=== PATIENT | female | born 1940 | race Caucasian/White ===

== ENCOUNTER 2020-02-13 17:47 | Emergency (ER) | payer MEDICARE, SELFPAY ==
[2020-02-13 17:47] VITALS: BP 150/109; PULSE 82; RESP 18; TEMP 36.7; O2SAT 94
[2020-02-13 17:48] VITALS: BP 150/109; PULSE 82; RESP 18; TEMP 36.7; O2SAT 94; BMI 30.9
--- NOTE | 2020-02-13 18:30 | ED.DCSUM_ITS ---
- ER Visit Summary Date of Service: 02/13/20 Chief Complaint: Cough temperature of 100. History of Present Illness: The patient is a 79 F past medical history of melanoma and renal insufficiency. Patient was cured of her melanoma 20 years ago. States she is had a 2-week history of cough nonproductive low-grade fever of 100. Denies any nausea, vomiting or diarrhea. No significant shortness of breath. Attempted to get a COVID 19 test but they ran out in [facility]. Primary care physician sent her to the emergency department. Physical Examination: Female no acute distress. Vital signs stable. Afebrile. Temperature 98. Pulse ox 94% on room air no signs of hypoxia. No distress. HEENT exam normal. Moist his membranes. Neck nontender no lymphadenopathy. Lungs clear to auscultation bilaterally. Dry cough. Heart regular rhythm no murmur. Abdomen soft nontender. Extremities moves all 4. Calves nontender without edema or cords. Neurologically she is awake and alert with no focal motor deficits. Skin unremarkable. Back nontender. Test Results: Chest x-ray AP lateral 2 views read by myself showed a right lower aspect of the upper lobe infiltrate. Consistent with an early pneumonia. No old x-rays available for comparison. I did go over the x-ray with the patient and her . Emergency Department Course and Treatment: We are obtaining a chest x-ray. Started on Levaquin in the emergency department. Treated with Levaquin for total 10 days. Zofran when needed for nausea. Per patient request. Follow-up with your doctor. Clinically the patient looks well. She is not hypoxic. Cu rrently she is not febrile. She is not hypotensive. She seems like a good candidate for outpatient therapy. Treatment Plan: Fluids and rest. Tylenol as needed for fever. Follow-up with your doctor if not improving. Levaquin 1 pill a day for 9 more days starting tomorrow. Disposition: discharge Impression: Acute right upper lobe pneumonia Rule out COVID 19 This note was generated with [employer] dictation software. It may contain incorrect words, spelling, and punctuation that were not noted in review of the chart prior to signing ED Disposition - Plan for ED Patient: Disposition: Home or Assisted Living Instructions: PNEUMONIA (Adult) Prescriptions: levoFLOXacin tablet [Levaquin tablet] 750 mg PO DAILY #9 tab Prescription Printed Ondansetron [Zofran Odt] 4 mg PO Q8H PRN PRN #10 tab PRN Reason: Nausea Prescription Printed Referrals: Nai Alegre MD [Primary Care Provider] - 3-5 Days Additional Instructions: Plenty of fluids and rest. Tylenol for fever. Levaquin the antibiotic 1 pill a day for 9 more days starting tomorrow. Zofran only if needed for nausea. Take your antibiotic with food on your stomach should help decrease the nausea. Follow-up with your doctor to ensure you are improving or return to the emergency department if you are feeling worse.
--- NOTE | 2020-02-13 18:35 | RAD_ITS ---
STUDY: X-RAY CHEST REASON FOR EXAM: Female, 79 years old. COUGH SOB AND FEVER TECHNIQUE: Frontal and lateral views of the chest COMPARISON: None. FINDINGS: There is a small linear opacity in the right midlung zone seen best on the frontal view and partially obscured by mediastinal shadow on the lateral view. There is no pneumothorax, pulmonary edema or pleural effusions. There is a calcified granuloma in the right lung. Osseous structures are intact with scoliosis in the lumbar spine. There is no air under the diaphragms. RAD/Chest PA and Lateral IMPRESSION: 1. Small right lung opacity, too small to characterize, possibly focal atelectasis, versus scarring. However, in the presence of acute respiratory symptoms recommend short term follow-up to evaluate for possible developing pneumonia. Electronically Signed: Yu Chapman, at 18:50 EDT Tel , Service support ,
--- NOTE | 2020-02-13 19:07 | ED.DEP ---
ED Disposition - Plan for ED Patient: Disposition: Home or Assisted Living Instructions: PNEUMONIA (Adult) Prescriptions: levoFLOXacin tablet [Levaquin tablet] 750 mg PO DAILY #9 tab Prescription Printed Ondansetron [Zofran Odt] 4 mg PO Q8H PRN PRN #10 tab PRN Reason: Nausea Prescription Printed Referrals: Nai Alegre MD [Primary Care Provider] - 3-5 Days Additional Instructions: Plenty of fluids and rest. Tylenol for fever. Levaquin the antibiotic 1 pill a day for 9 more days starting tomorrow. Zofran only if needed for nausea. Take your antibiotic with food on your stomach should help decrease the nausea. Follow-up with your doctor to ensure you are improving or return to the emergency department if you are feeling worse.
[2020-02-13] MEDS: levoFLOXacin 750 MG Tablet PO (19:20)
[2020-02-13 19:35] VITALS: BP 157/63
== END 2020-02-13 19:40 | disposition home or self-care (01) ==
PROVIDERS: Emergency Provider Emergency Medicine; PCP Internal Medicine
DX: J18.9 Pneumonia, unspecified organism (principal)
CPT/HCPCS: 71046; 99283

== ENCOUNTER 2020-12-26 08:57 | Outpatient (RCR) | payer MEDICARE, SELFPAY | END 2020-12-26 23:59 | LOC: IMMUN 08:57 | PROVIDERS: PCP Internal Medicine; Visit Provider Family Medicine | DX: Z23 Encounter for immunization (principal) | CPT/HCPCS: 0011A; 0012A; 91301 ==

== ENCOUNTER 2021-05-04 14:35 | Emergency (ER) | payer MEDICARE, SELFPAY ==
[2021-05-04 14:36] VITALS: BP 164/79; PULSE 73; RESP 17; TEMP 36.4; O2SAT 95; BMI 30.9
[2021-05-04 15:11] VITALS: O2SAT 94
--- NOTE | 2021-05-04 15:11 | EKG12_ITS ---
Test Reason : NEW ONSET Blood Pressure : / mmHG Vent. Rate : 069 BPM Atrial Rate : 069 BPM P-R Int : 180 ms QRS Dur : 086 ms QT Int : 382 ms P-R-T Axes : 065 047 057 degrees QTc Int : 409 ms Normal sinus rhythm Normal ECG Confirmed by NELSON HENDRICKS, MARCELLO ([id number]), telegraph editor CRISTOBAL REYES ([id number]) on 05/08/2021 8:14:13 AM Referred By: JOSE Confirmed By:MARCELLO DAMON MD
--- NOTE | 2021-05-04 15:12 | EX.ED.DYSGE1 ---
HPI History of Present Illness Chief Complaint: Neuro S/Sx Detail of Chief Complaint: Also exertional dyspnea. Informant: patient and spouse/S.O. Onset/Context/Timing Onset: Today and Month(s) Context: Sudden Onset Timing: Intermittent Current Severity: Gone Maximum Severity: Mild Narrative Narrative: 80-year-old female past medical history of renal insufficiency and prior melanoma with resection. Chest presents with 2 complaints. The first 1 is today she had 2 different episodes each lasting less than a minute of bilateral arm tingling. Initially occurred at rest while sitting in a car. After a while when she changed positions it resolved. This occurred x2 and then 1 time when she was walking in her house. No weakness. Just a tingling sensation. It was both arms and neck stocking glove distribution. No headache. Second complaint and did not occur today as patient is having exertional dyspnea when she walks to the end of her driveway. Denies any recent cardiac work-up. She denies any chest pain. No fever or chills. No melena. Prior similar symptoms: Yes Recent Illness/Hospitalization: No PFSH PFSH Home Medications aspirin 81 mg PO 02/13/20 [History Last Taken Unknown] atorvastatin 10 mg PO 02/13/20 [History Last Taken Unknown] cholecalciferol (vitamin D3) 2,000 unit PO 02/13/20 [History Last Taken Unknown] diltiazem HCl 120 mg PO BID 02/13/20 [History Last Taken Unknown] labetalol 100 mg PO 02/13/20 [History Last Taken Unknown] levofloxacin 750 mg PO DAILY #9 tab 02/13/20 [Rx Last Taken Unknown] levothyroxine 75 mcg PO DAILY 02/13/20 [History Last Taken Unknown] losartan 100 mg PO 02/13/20 [History Last Taken Unknown] multivitamin 02/13/20 [History Last Taken Unknown] ondansetron 4 mg PO Q8H PRN PRN #10 tab 02/13/20 [Rx Last Taken Unknown] sertraline 25 mg PO 02/13/20 [History Last Taken Unknown] Allergy/AdvReac Type Severity Reaction Status Date / Time ciprofloxacin [From Cipro] Allergy Other Verified 05/04/21 14:39 Penicillins Allergy Rash Verified 05/04/21 14:38 Sulfa (Sulfonamide Allergy Anaphylaxis Verified 05/04/21 14:38 Antibiotics) Opioids - Morphine Analogues AdvReac Vomiting Verified 05/04/21 14:38 Social History Smoking Status: Former smoker ROS ROS ED ROS Narrative Denies any recent illness. She does have exertional dyspnea for last 2 years. Review of Systems ROS Unobtainable: Denies due to encephalopathy Constitutional Constitutional ED: Denies chills or fever(s) Eyes Eyes: Denies change in vision ENT ENT ED: Denies ear pain or sore throat Cardiovascular Cardiovascular: Denies chest pain or palpitations Respiratory/Chest Respiratory/Chest: Reports dyspnea on exertion; Denies cough or sputum Gastrointestinal Gastrointestinal: Denies abdominal pain, constipation, diarrhea, nausea or vomiting Genitourinary Genitourinary ED: Denies dysuria or hematuria Musculoskeletal Musculoskeletal: Denies arthralgias or myalgias Integumentary Denies abscess or rash Psychiatric Psychiatric: Denies depression Endocrine Endocrinology: Denies polyuria Allergic/Immunologic Allergic/Immunologic ED: Denies urticaria EXAM Physical Exam Narrative Exam Narrative: Well-appearing 80-year-old female coming by her . Vital signs stable afebrile. Exam unremarkable. Lungs are clear to auscultation bilaterally. Heart regular rate and rhythm no murmur. Rate about 70. Abdomen soft nontender normal bowel sounds no peritoneal signs. Moving all 4 extremities. Neurovascular intact. She does have a orthopedic boot on her right foot. She has 5 of 5 tombstone polisher strength in both hands. Full range of motion of both arms. Equal symmetrical radial pulses. She has normal strength in both legs. There is back nontender. Neurologically she is awake alert with no focal motor or sensory deficits at this time. NIH of 0. Const Vital Signs: 05/04/21 14:36 05/04/21 15:11 05/04/21 16:17 Temperature 97.5 F L Temperature Source Temporal Pulse Rate 73 65 Respiratory Rate 17 18 Blood Pressure 164/79 H 133/70 H Blood Pressure Mean 107 91 Pulse Ox 95 94 93 Oxygen Delivery Method Room Air Room Air Positive well nourished and well developed; Negative for obese General Appearance ED: well developed Nutritional Appearance: Negative for obese HEENT Reports moist mucous membranes Negative for trauma or tenderness Eyes PERRL and EOMs intact bilaterally Neck no lymphadenopathy, supple and no JVD General: Negative for tenderness Chest Wall inspection of chest normal and palpation of chest normal Resp normal respiratory effort and clear to auscultation bilaterally Effort and Inspection: pain with movement Cardio regular rate, regular rhythm, S1 normal heart sound, S2 normal heart sound and no murmurs GI normal to inspection, nondistended, normoactive bowel sounds, non-tender, non-distended and no masses Auscultation: normoactive bowel sounds Palpation: soft; Negative for tender or guarding Back/Spine no CVA tenderness Cervical Spine: Negative for cervical spine tenderness Thoracic Spine / Upper Back: Negative for thoracic spinal tenderness or paraspinal muscle tenderness Extremity normal to inspection Extremity Narrative: Ortho boot on right foot. General Extremety ED: Negative for edema or tenderness General Extremity: Negative for edema Neuro oriented x3, CN's II-XII intact bilaterally and no sensory deficits noted Sensorium / Orientation: alert; Negative for lethargic or stuporous Sensory Exam: No sensory level loss detected Motor Exam: strength 5/5 throughout; Negative for general weakness Psych mental status grossly normal Skin no rashes or lesions noted MDM MDM MDM Narrative Medical decision making narrative: Older female presents with tingling in both arms its occurred 3 times a day resolved each time. Has a normal neurologic exam at this time. Most likely this is originating from her cervical spine. She has no symptoms that at this time and a normal exam. Her secondary complaint is that she has had exertional dyspnea for some time her and her were hoping for a diagnosis of that. Repeat exam at 4:30 patient is doing well. She will be discharged home with outpatient follow-up with cardiology. Patient and her are comfortable with the plan. Lab Data Attestation: I reviewed the patient's lab results. Lab results narrative: Patient CBC, chemistry and troponin were unremarkable. Portable chest x-ray 1 view read by myself the radiologist showed no acute abnormality. EKG was normal. Chemistries normal. Troponin normal. Labs: Laboratory Results - last 24 hr 05/04/21 05/04/21 05/04/21 15:20 15:20 15:29 WBC 8.2 RBC 4.47 Hgb 12.9 Hct 40.2 MCV 89.9 MCH 28.9 MCHC 32.1 RDW Std Deviation 43.0 RDW Coeff of Bisi 13.1 Plt Count 347 MPV 9.5 Immature Gran % (Auto) 0.200 Neut % (Auto) 54.1 Lymph % (Auto) 33.7 [place] % (Auto) 8.0 Eos % (Auto) 3.4 Baso % (Auto) 0.6 Absolute Neuts (auto) 4.5 Absolute Lymphs (auto) 2.78 Nucleated RBC % 0 Sodium 142 Potassium 4.1 Chloride 105 Carbon Dioxide 29.0 Anion Gap 8 BUN 23 H Creatinine 1.16 H Estim Creat Clear Calc 27.78 Est GFR (MDRD) Af Amer 58 L Est GFR (MDRD) Non-Af 48 L BUN/Creatinine Ratio 19.8 Glucose 96 Calcium 10.3 H Troponin I < 0.015 POC Glucose 101 Radiography Chest X-Ray - ED: 1 View, Read by ED Physician, Read by Radiologist, Heart, Lungs, Mediastinum, Bony Structures, No Acute Disease and Chronic Changes Diagnostic Testing: Radiology Impression Chest X-Ray 05/04/21 15:30 IMPRESSION: Hyperinflation. Minimal residual thickening of the right minor fissure. Electronically Signed: Lakhwinder Madden MD at 15:51 EDT , Service support , Rhythm Strip Rhythm Strip: Sinus Rhythm Rate: 69 Ectopy: None EKG Initial EKG: Attestation: I personally reviewed and interpreted this EKG as follows: Interpretation: Sinus Rhythm and No Acute Injury Pattern Comments: Normal sinus rhythm rate of 69 no acute signs of AL or ischemia. Prior EKG tracings: not available for review Discharge Plan Triage Chief Complaint: Neuro S/Sx ED Provider: Nathan Almanzar Dx/Rx/DC Orders Clinical Impression: Tingling in extremities, Exertional dyspnea Instructions: ED Dyspnea Prescriptions: No Action multivitamin 1 EACH tablet RF: 0 atorvastatin 10 MG tablet 10 mg PO RF: 0 aspirin 81 MG tablet,delayed release (DR/EC) 81 mg PO RF: 0 levothyroxine 75 MCG tablet 75 mcg PO DAILY RF: 0 sertraline 25 MG tablet 25 mg PO RF: 0 diltiazem HCl 120 MG capsule,extended release 24hr 120 mg PO BID RF: 0 labetalol 100 MG tablet 100 mg PO RF: 0 losartan 100 MG tablet 100 mg PO RF: 0 cholecalciferol (vitamin D3) 2,000 UNIT capsule 2,000 unit PO RF: 0 levofloxacin 750 MG tablet 750 mg PO DAILY Qty: 9 RF: 0 ondansetron 4 MG tablet 4 mg PO Q8H PRN PRN (Reason: Nausea) Qty: 10 RF: 0 Primary Care Provider: Nai Alegre Referrals: Nai Alegre MD [Primary Care Provider] - As soon as possible Americo Noguera MD [STAFF PHYSICIAN] - As soon as possible Activity Restrictions/Additional Instructions: The tingling in your arms today is most likely secondary to pinched nerve in your neck. If it continues you should follow up with an outpatient MRI of your neck which is the cervical spine. The exertional shortness of breath we do not have a specific cause. Your test today were normal including chest x-ray, EKG and all the lab work. You need an outpatient echocardiogram which is an ultrasound of your heart. Call and follow-up with cardiology or this could also be ordered through your primary care physician. Disposition Disposition: Home, self care
--- NOTE | 2021-05-04 15:15 | NURSING ---
NO OLD EKGS
--- NOTE | 2021-05-04 15:30 | RAD_ITS ---
STUDY: X-RAY CHEST REASON FOR EXAM: Female, 80 years old. Chest pain TECHNIQUE: Single AP portable view of the chest. COMPARISON: Comparison is made with prior study dated 02/13/2020. FINDINGS: EKG electrodes are seen. Hyperinflation. Minimal residual thickening of the right fissure. There is no demonstrated pleural abnormality. Normal size heart. Normal mediastinum and malcolm. Normal visualized pulmonary arteries. There is atherosclerotic calcification of the aortic arch with tortuosity. Normal visualized thoracic spine. Normal visualized ribs, clavicles, and shoulders. There is no demonstrated abnormality of the visualized soft tissue structures of the upper abdomen. RAD/Chest 1 View (Portable) IMPRESSION: Hyperinflation. Minimal residual thickening of the right minor fissure. Electronically Signed: Lakhwinder Madden MD at 15:51 EDT , Service support ,
[2021-05-04 15:35] LABS: Bedside Glucose 101 mg/dL (70-110)
[2021-05-04 15:39] LABS: Absolute Lymphocyte Count 2.78 X10^3/uL (0.83-4.51); Absolute Neutrophil Count 4.5 X10^3/uL (2.0-7.7); Basophil# 0.05 X10^3/uL; Basophil% 0.6 % (0-1); Eosinophil# 0.28 X10^3/uL; Eosinophils% 3.4 % (0-5); Hematocrit 40.2 % (37-47); Hemoglobin 12.9 g/dL (12.0-15.0); Lymphocyte # 2.78 X10^3/ul (0.83-4.51); Lymphocyte % 33.7 % (19-41); Mean Corp Hgb Conc 32.1 g/dL (32-36); Mean Corpuscular Hgb 28.9 pg (27.0-32.0); Mean Corpuscular Volume 89.9 fL (81-99); Mean Platelet Vol. 9.5 fl (6.2-12.0); Monocyte# 0.66 X10^3/uL; NRBC Flagged by Analyzer 0 % (0-5); Neutrophil # 4.45 X10^3/uL (2.7-7.7); Neutrophil % 54.1 % (47-70); Platelet Count 347 K/mm3 (150-450); RBC Distribution Width CV 13.1 % (11.6-14.6); Red Blood Count 4.47 M/mm3 (4.2-5.4); White Blood Count 8.2 K/mm3 (4.4-11.0)
[2021-05-04 15:55] LABS: Anion Gap 8 (5-15); BUN 23 mg/dL (7-18); BUN/Creat Ratio 19.8 RATIO (10-20); Calcium,Total 10.3 mg/dL (8.5-10.1); Chloride 105 mmol/L (98-107); Creatinine, Serum 1.16 mg/dL (0.55-1.02); EST Glomerular Filtration Rate 48 mL/min (>60); Est Glom Filt Rate - Afr Amer 58 mL/min (>60); Estimated Creatinine Clearance 27.78 ml/min; Glucose 96 mg/dL (74-106); Potassium 4.1 mmol/L (3.5-5.1); Sodium Level 142 mmol/L (136-145)
[2021-05-04 16:17] VITALS: BP 133/70; PULSE 65; RESP 18; O2SAT 93
[2021-05-04 16:47] VITALS: BP 133/70; PULSE 69; RESP 18
== END 2021-05-04 16:48 | disposition home or self-care (01) ==
PROVIDERS: Emergency Provider Emergency Medicine; PCP Internal Medicine
DX: R20.2 Paresthesia of skin (principal); R06.09 Other forms of dyspnea; E66.9 Obesity, unspecified; Z87.891 Personal history of nicotine dependence
CPT/HCPCS: 71045; 80048; 82962; 84484; 85025; 93005; 99284; A4216

== ENCOUNTER 2021-05-29 08:55 | Outpatient (RCR) | payer MEDICARE, SELFPAY ==
--- NOTE | 2021-05-29 12:53 | HP.PTEVAL_ITS ---
Patient's Visit Information BEKAH FERGUSON is a 81 year old F referred to Physical Therapy by NAILA NGUYEN with a diagnosis of PARTIAL TEAR R TIBIALIS ANTERIOR TENDON.. Date of Evaluation: 05/29/21 Physical Therapist: Ammy Virk PT, Cert MDT - Visit Plan Frequency: 2-3x /Week Duration: 4-6 Weeks Plan: VERY GENTLE AND SLOW ROM, STRETCHING AND STRENGTHEING THER EX FOR RIGHT LE. *H/O TWO LUMBAR FUSIONS* START NWB AND PROGRESS WEIGHTBEARING SLOWLY TOLERATED. GAIT TRAINING. - Subjective Work/Leisure: RETIRED. Disability: NO. Present symptoms: PAIN ACROSS THE TOP OF THE FOOT AND ESPECIALLY ALONG THE INSIDE OF THE FOOT. NO LONGER HAVING ANY NUMBNESS OR TINGLING. HAVING SWELLING. Present since: FEBRUARY 2021. Pain Scale: WORST 9/10, LEAST 4/10. Currently: 7/10. Commenced as a result of: NO APPARENT REASON. JUST WOKE UP ONE MORNING AND FOOT WAS SWOLLEN. IT GOT BAD FAST. Symptoms at onset: RIGHT FOOT PAIN AND SWELLING. Worse: WALKING, POINTING TOES DOWN, HURTS WITHOUT ANY REASON AT ALL, ANY KIND OF MVMT. Better: E LEVATING IT, RESTING IT, BOOT. Disturbed sleep: YES. 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 ED VISIT FOR FOOT ABOUT 4 YEARS AGO BUT CAN'T REMEMBER WHICH FOOT - TWISTED ANKLE. Treatment this episode: IN WALKING BOOT SINCE FEBRUARY. PATIENT REPORTS PT IS THE LAST CHANCE SHE HAS TO AVOID SURGERY. STATES TODAY IS A BAD DAY FOR PAIN. WALKING BOOT IS ONLY TREATMENT PATIENT HAS HAD. TAKING TYLONOL FOR PAIN. NO INJECTIONS. Gait: WALKING IN BOOT ONLY. SLEEPS IN BOOT TOO. PATIENT REPORTS THE BOOT CAUSES HER A LOT OF PAIN IN HER ARTIS. GAIT IS DISTANCE LIMITED. 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 Accidents: NO. Imaging: RIGHT FOOT MRI APPROX MARCH 2021 - PARTIAL RUPTURED TENDON PER PATIENT REPORT. 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 2 LUMBAR FUSION WITH LAST ONE BEING NOV 2019. R TKR. OTHER: 2 STORY SPLIT LEVEL HOME WITH LOTS OF STEPS AND HAS PETS. HAS TO DO STEPS A LOT. CONSIDERING MOVING. - Objective THIS PATIENT AMBULATES INDEP'LY INTO PT WITHOUT ANY ASSISTIVE DEVICES WEARING A BOOT ON HER RIGHT FOOT. SHE IS ABLE TO INDEP'LY TRANSFER SIT TO STAND WITHOUT UE ASSIST. SHE IS ABLE TO INDEP'LY DON AND DOFF BOOT. 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 SHE HAS MILD SWELLING ALONG HER RIGHT MEDIAL ARCH. SHE IS UNABLE TO ACTIVELY INVERT HER FOOT BUT HAS ABOUT 5 DEG OF EVERSION. RIGHT ANKLE ACTIVE DORSIFLEX TO NEUTRAL AND PLANTAR FLEXION TO 40 DEG. SHE IS ABLE TO ACTIVELY MOVE ALL TOES. AROM OF TOES DOES NOT HURT BUT ALL ANKLE MVMTS PROVOKE C/O PAIN. TREATMENT: GAIT TRAINING TO DECREASE STRIDE LENGTH, DECREASE CADANCE AND PICKING UP OF RIGHT FOOT TO DECREASE RUBBING OF BOOT WHICH WAS ONE OF PATIENTS CHEIF COMPLAINTS TODAY. SHE REPORTED DECREASED LEG PAIN FROM THE BOOT WITH GAIT CHANGES. HEP INSTRUCTION: GENTLE AROM OF TOE AND DORSIFLEX/PLANTAR FLEX X 20-30 REPS ABOUT 5 TIMES A DAY WHEN SHE LAYS DOWN TO ELEVATE RIGHT LE. PATIENT DEMONSTRATED AND COMMUNICATED A GOOD UNDERSTANDING OF ALL INSTRUCTIONS AFTER GIVEN. SHE APPEARS VERY APPREHENSIVE ABOUT PT BEING TOO AGGRESSIVE AND THIS PT TRIED TO RE-ASSURE HER THAT WE WILL START SLOWLY. SHE STATES SHE REALLY WANTS TO AVOID SURGERY BUT IS CONCERNED SHE WILL NOT BE ABLE TO. - Goals Goal 1:: INDEP AND SAFE GAIT ON LEVEL SURFACES AND UP AND DOWN STEPS WITHOUT BOOT AND WITH LEAST ASSISTIVE DEVICE. Goal Time Frame: 4-6 Weeks Goal 2:: INCREASE FUNCTIONAL AROM OF RIGHT ANKLE TO IMPROVE ADL'S. Goal Time Frame: 4-6 Weeks Goal 3:: INCREASE FUNCTIONAL STRENGTH OF RIGHT LE TO 4/5 TO EASE ADLS AND ALLOW PATIENT TO BE ABLE TO DRIVE. Goal Time Frame: 4-6 Weeks Goal 4:: DECREASE C/O RIGHT FOOT/ANKLE PAIN Goal Time Frame: 4-6 Weeks Goal 5:: PATIENT WILL BE INDEP WITH A HEP FOR CONTINUED IMPROVEMENT ONCE FORMAL PHYSICAL THERAPY CONCLUDES. Goal Time Frame: 4-6 Weeks - Anticipated Interventions Patient/Client Instruction: Educate patient on: Condition, Plan of Care, Risk Factors For the Purpose of:: To improve self management Therapeutic Exercise to Include: Strength training, Flexibilty training, Gait and locomotor training, Neuromotor development, Active ROM For the Purpose of:: To decrease pain, To increase ROM, To improve muscle performance and motor function, To increase tolerance to activity/condition/position, To improve ability of physical actions for home/community/work/leisure, To improve gait and locomotor functions Cryotherapy (ice pack, ice massage): Yes Thermo therapy (hot pack): Yes For the Purpose of:: To decrease pain, To decrease swelling/inflammation, To improve nutrient delivery to tissue Thank you for the opportunity to evaluate your patient. For Medicare and Medicare HMO plans, please review the plan of care and approve it. It will need to be FAXED BACK to us at [phone] for Medicare purposes. For Medicare only, by signing this I certify the plan of care. Please let me know if there are questions or concerns regarding this plan of care. Physician Signature: Date:
--- NOTE | 2021-06-18 08:57 | HP.PT.NRP ---
BEKAH FERGUSON was seen in my office for initial evaluation on 05/29/21. The following Plan of Care was established for this patient: Initial Frequency: 2-3x /Week Initial Duration: 4-6 Weeks Patient/Client Instruction: Educate patient on: Condition, Plan of Care, Risk Factors For the Purpose of:: To improve self management Therapeutic Exercise to Include: Strength training, Flexibilty training, Gait and locomotor training, Neuromotor development, Active ROM For the Purpose of:: To decrease pain, To increase ROM, To improve muscle performance and motor function, To increase tolerance to activity/condition/position, To improve ability of physical actions for home/community/work/leisure, To improve gait and locomotor functions Cryotherapy (ice pack, ice massage): Yes Thermo therapy (hot pack): Yes For the Purpose of:: To decrease pain, To decrease swelling/inflammation, To improve nutrient delivery to tissue This patient was last seen in our office 05/29/21. Pertinent comments regarding their Physical therapy will appear below: This patient has not returned to Physical Therapy and is appropriate to return to MD for further follow-up as needed. At this point I will be discontinuing this patient from physical therapy. I would be happy to see this patient again in the future if found appropriate by the physician. Thank you! Ammy Virk, PT, Cert MDT
== END 2021-05-29 19:00 | disposition home or self-care (01) ==
LOC: PT 08:55
PROVIDERS: PCP Internal Medicine
DX: S86.211D Strain of muscle(s) and tendon(s) of anterior muscle group at lower leg level, right leg, subsequent encounter (principal); X58.XXXD Exposure to other specified factors, subsequent encounter
CPT/HCPCS: 97162; 97530

== ENCOUNTER → 2021-07-09 06:59 | Outpatient (CLI) | payer MEDICARE, SELFPAY ==
[2021-06-25 15:47] VITALS: BMI 29.7
--- NOTE | 2021-07-09 07:01 | ECHOD_ITS ---
Reason For Study: MURMUR Procedure This was a 2D Doppler, Color Flow transthoracic echocardiogram. Contrast injection was performed. Exam performed in department. Left Ventricle Normal LV size. Left ventricular systolic function is normal. The estimated ejection fraction is 65 %. There is evidence of diastolic dysfunction. No regional wall motion abnormalities noted. Right Ventricle Normal RV size. Normal systolic function. Atria Normal left atrium. Normal right atrium. Prominent eustachian valve. No doppler evidence for ASD. Mitral Valve There is no mitral annular calcification. Normal mitral valve. Trivial mitral valve insufficiency. Tricuspid Valve Normal tricuspid valve. Trivial tricuspid valve insufficiency. Right ventricular systolic pressure estimated to be 36 mmHg. Aortic Valve Trisinus/trileaflet aortic valve. Mild focal aortic valve calcification. Trivial aortic valve insufficiency. Pulmonic Valve The pulmonic valve is not well visualized. Great Vessels Normal sized aortic root. Pericardium/Pleural No pericardial effusion. MMode/2D Measurements & Calculations LVIDd: 3.8 cm IVSd: 1.2 cm Ao root diam: 3.0 cm LVIDs: 2.5 cm LVPWd: 0.98 cm RVDd: 2.6 cm FS: 33.1 % LAV(MOD-bp): 49.6 ml LA A4 area: 16.6 cm2 LA dimension(2D): 3.2 cm LAV(MOD-bp) Indexed: 29.9 ml/m2 LAV(MOD-sp2): 50.5 ml LAV(MOD-sp4): 44.7 ml RA A4 area: 11.0 cm2 Time Measurements MV dec time: 0.23 sec Doppler Measurements & Calculations MV E max joni: 77.8 cm/sec Lat Peak E' Joni: 8.5 cm/sec Med Peak E' Joni: 5.2 cm/sec MV A max joni: 86.1 cm/sec E/E' lat: 9.1 E/E' med: 14.9 MV E/A: 0.90 Ao V2 max: 154.4 cm/sec AI max joni: 392.4 cm/sec LV V1 max: 124.3 cm/sec Ao max P.5 mmHg AI max P.6 mmHg LV V1 max P.2 mmHg AI dec slope: 223.2 cm/sec2 AI P1/2t: 515.0 msec PA V2 max: 95.1 cm/sec TR max joni: 288.2 cm/sec TR max P.2 mmHg ECHO/Echo Complete Interpretation Summary Left ventricular systolic function is normal. The estimated ejection fraction is 65 %. Prominent eustachian valve. Trivial mitral valve insufficiency. Trivial tricuspid valve insufficiency. Mild focal aortic valve calcification. Trivial aortic valve insufficiency. Right ventricular systolic pressure estimated to be 36 mmHg. There is evidence of diastolic dysfunction. Ordering Physician: Americo Noguera Referring Physician: TONY CAMPA Performed By: Chrissy Villaseñor, RDCS, RVT
--- NOTE | 2021-07-09 10:02 | STRESSREP_ITS ---
Stress Test Report Date: 07-09-2021 Procedure: Pharmacologic stress nuclear imaging study Indications: Shortness of breath/dyspnea on exertion Consent: Per the patient Procedure: The patient underwent pharmacologic (Regadenoson 0.4mg ) evaluation with a peak heart rate of 96 beats per minute (69%predicted maximal heart rate) and a peak blood pressure of 142/70 mmHg. The baseline ECG demonstrated sinus rhythm. The peak pharmacologic ECG demonstrated no obvious ECG changes. There were no cardiac dysrhythmias pretest, during pharmacologic infusion, or recovery. There was no complaint of chest discomfort during pharmacologic infusion or recovery. The examination was discontinued secondary to completion of protocol. Impression: 1. Pharmacologic (Regadenoson) evaluation 2. Peak pharmacologic ECG with no obvious ECG changes. 3. There were no cardiac dysrhythmias pretest, during pharmacologic infusion, or recovery. 4. Nuclear images pending Myocardial perfusion imaging study: Technique: The patient was injected with 12.0 millicuries of technetium 99m Cardiolite and subsequently rest SPECT Cardiolite nuclear imaging was obtained in the horizontal long, vertical long, and short axis views. The patient underwent pharmacologic (Regadenoson) evaluation with a peak heart rate of 96 beats per minute (69% percent predicted maximal heart rate) and a peak blood pressure of 142/70 mmHg. The patient was injected with 36.0 millicuries of technetium 99m Cardiolite and subsequently stress SPECT Cardiolite nuclear imaging was obtained in the horizontal long, vertical long, and short axis views. A gated Cardiolite study at peak stress was obtained. Interpretation: Rest and stress SPECT Cardiolite nuclear imaging status post realignment, normalization, and attenuation correction demonstrate relative uniform tracer uptake and myocardial perfusion appearing within normal limits. There is end systolic thickening and brightening. The gated Cardiolite study demonstrates myocardial thickening and inward wall motion. The reported LVEF is 86%. Impression: 1. Rest and stress SPECT Cardiolite nuclear imaging demonstrate relative uni form tracer uptake and myocardial perfusion appearing within normal limits. 2. The gated Cardiolite study reports an LVEF of 86%. This note was generated with [employer] software. It may contain incorrect words, spelling, and punctuation that were not noted in checking the note before signing.
== END ==
PROVIDERS: PCP Internal Medicine; Referring Provider Internal Medicine Cardiovascular Disease; Visit Provider Internal Medicine Cardiovascular Disease
DX: R06.00 Dyspnea, unspecified (principal); E78.2 Mixed hyperlipidemia; R01.1 Cardiac murmur, unspecified; I10 Essential (primary) hypertension
CPT/HCPCS: 78452; 93017; 93306; A9500; A4216; J2785

== ENCOUNTER 2022-10-09 11:47 | Emergency (ER) | payer MEDICARE, SELFPAY ==
[2022-10-09 11:50] VITALS: BP 104/87; PULSE 79; RESP 18; TEMP 36.4; O2SAT 95; BMI 28.2
--- NOTE | 2022-10-09 12:08 | EDS_ITS ---
HPI History of Present Illness Chief Complaint: Cough Informant: patient Onset/Context/Timing Onset: Days (5-6) Context: gradual and onset Timing: Intermittent Quality: Positive for Wheezing Current Severity: Gone Maximum Severity: Moderate Worsened by: Coughing Relieved by: Albuterol Associated Symptoms cough and fever Chest Pain: Positive for None Narrative Narrative: Patient has been sick for 5 or 6 days now with URI symptoms, going down into my chest, but just my upper chest right now. She states that if it gets worse it will turn into pneumonia like it does every winter. She talked to her downstream biomanufacturing technician about this illness, at the time she was not having any fevers but she was having intermittent wheezing that was being treated well with her home albuterol treatments which is still the case, and they did not advise an antibiotic at that time. 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 She states yesterday she started getting a low-grade fever 100.9, and she has been up coughing all night, but not more dyspneic. [facility] Medical History Basal cell carcinoma (BCC) Cardiac murmur CKD (chronic kidney disease) stage 3, GFR 30-59 ml/min Essential hypertension Hypothyroidism IBS (irritable bowel syndrome) Malignant melanoma Mixed hyperlipidemia Home Medications cholecalciferol (vitamin D3) 50 mcg (2,000 unit) capsule 2,000 unit PO 02/13/20 [History Last Taken Unknown] diltiazem HCl 120 mg capsule,extended release 24 hr 120 mg PO BID 02/13/20 [History Last Taken Unknown] levothyroxine 75 mcg tablet 75 mcg PO DAILY 02/13/20 [History Last Taken Unknown] aspirin 81 mg tablet,delayed release 81 mg PO DAILY 06/24/21 [History Last Taken Unknown] atorvastatin 10 mg tablet 10 mg PO DAILY 06/24/21 [History Last Taken Unknown] labetalol 100 mg tablet 100 mg PO DAILY 06/24/21 [History Last Taken Unknown] losartan 100 mg tablet 100 mg PO DAILY 06/24/21 [History Last Taken Unknown] sertraline 25 mg tablet 25 mg PO DAILY 06/24/21 [History Last Taken Unknown] doxycycline monohydrate 100 mg capsule 100 mg PO BID #14 CAPSULES 11/12/22 [Rx Last Taken Unknown] Allergy/AdvReac Type Severity Reaction Status Date / Time ciprofloxacin [From Cipro] Allergy Other Verified 10/09/22 11:50 Penicillins Allergy Rash Verified 10/09/22 11:50 Sulfa (Sulfonamide Allergy Anaphylaxis Verified 10/09/22 11:50 Antibiotics) Opioids - Morphine Analogues AdvReac Vomiting Verified 10/09/22 11:50 Family History Mother CAD (coronary artery disease) Myocardial infarction CVA (cerebral vascular accident) Surgical History History of arthroscopy of right knee History of lumbar spinal fusion History of lumbosacral spine surgery Social History Smoking Status: Former smoker alcohol intake: current details: occasional substance use type: does not use caffeine: Yes Type: tea Number of servings: 1 ROS ROS ED Constitutional Constitutional ED: Reports fever(s); Denies chills ENT ENT ED: Reports ear pain left (intermittent, mild), rhinorrhea and sore throat Cardiovascular Cardiovascular: Denies chest pain or palpitations Respiratory/Chest Respiratory/Chest: Reports cough and dyspnea; Denies sputum Gastrointestinal Gastrointestinal: Denies abdominal pain, diarrhea, nausea or vomiting Genitourinary Genitourinary ED: Denies dysuria or hematuria Musculoskeletal Musculoskeletal: Denies myalgias or neck pain Integumentary Denies abscess or rash Neurologic Neurologic: Denies headache(s), paresthesias or weakness Psychiatric Psychiatric: Denies depression or suicidal thoughts Endocrine Endocrinology: Denies polydipsia or polyuria EXAM Physical Exam Const Vital Signs: 10/09/22 11:50 10/09/22 12:09 10/09/22 12:20 Temperature 97.6 F L 97.8 F Temperature Source Temporal Temporal Pulse Rate 79 88 Respiratory Rate 18 16 Respiratory Effort Short of Breath Respiratory Depth Normal Respiratory Pattern Normal Blood Pressure 104/87 H 106/78 Blood Pressure Mean 92 87 Pulse Ox 95 98 Oxygen Delivery Method Room Air Room Air Room Air Positive well nourished and well developed General Appearance ED: well developed and NAD HEENT Reports TM's clear and moist mucous membranes normocephalic and atraumatic Tympanic Membrane ED: Yes TM's clear Throat: Negative for posterior oropharynx abnormal Eyes PERRL and EOMs intact bilaterally Neck no lymphadenopathy, supple and no meningeal signs Resp normal respiratory effort and clear to auscultation bilaterally Cardio no murmurs Rate: regular rate Rhythm: regular rhythm Neuro oriented x3, CN's II-XII intact bilaterally and no sensory deficits noted Sensorium / Orientation: alert Motor Exam: strength 5/5 throughout Skin Lesions: no lesions Rashes: no rashes MDM MDM MDM Narrative Medical decision making narrative: 2 view chest x-ray on my interpretation is negative for any acute pneumonia. Patient states she has now developed fevers although she does not have 1 here, with a history of immunoglobulin deficiency and bronchiectasis I do not think it is completely unreasonable to start her on antibiotics. Prescribed her doxycycline, but she states during the history I cannot continue to cough like this. I have advised her that since her x-ray is normal, that it is unlikely that the doxycycline will cure her cough. She understands this, I recommend she follow-up with her downstream biomanufacturing technician, who is in [place], Dr. Goncalves, after the weekend, I we both agree that she does not necessarily need prednisone right now, she is comfortable with this overall plan. Discharge Plan Triage Chief Complaint: Cough ED Provider: Jc Schwab Dx/Rx/DC Orders Clinical Impression: Acute bronchitis, Bronchiectasis Instructions: Acute Bronchitis Prescriptions: New doxycycline monohydrate 100 mg capsule 100 mg PO BID Qty: 14 0RF No Action levothyroxine 75 MCG tablet 75 mcg PO DAILY diltiazem HCl 120 MG capsule,extended release 24hr 120 mg PO BID cholecalciferol (vitamin D3) 2,000 UNIT capsule 2,000 unit PO sertraline 25 mg tablet 25 mg PO DAILY atorvastatin 10 mg tablet 10 mg PO DAILY labetalol 100 mg tablet 100 mg PO DAILY aspirin 81 mg tablet,delayed release (DR/EC) 81 mg PO DAILY losartan 100 mg tablet 100 mg PO DAILY Primary Care Provider: Herminio Wise Referrals: Greaser Operator, your [Other] - 3-5 Days Herminio iWse MD [Primary Care Provider] - Disposition Disposition: Home, Self Care
[2022-10-09 12:09] VITALS: BP 106/78; PULSE 88; RESP 16; TEMP 36.6; O2SAT 98
--- NOTE | 2022-10-09 12:23 | RAD_ITS ---
EXAM: XR CHEST, 2 VIEWS CLINICAL INDICATION: cough, sob, bronchiectasis TECHNIQUE: Frontal and lateral views of the chest. This report was created using [employer] report generation technology. COMPARISON: XR Chest dated 05/04/2021 FINDINGS: LUNGS AND PLEURAL SPACES: Changes of old granulomatous disease again noted involving superior segment of the right lower lobe and right hilar. No pneumothorax. No effusion. HEART: Normal heart size. MEDIASTINUM: No mediastinal or hilar mass. BONES/JOINTS: No acute abnormality. SOFT TISSUES: Normal. RAD/Chest PA and Lateral IMPRESSION: No acute cardiopulmonary abnormality. No interval change. Electronically Signed: Adrian Marroquin MD at 12:39 EST ,
[2022-10-09 12:47] VITALS: RESP 18
== END 2022-10-09 12:47 | disposition home or self-care (01) ==
PROVIDERS: Emergency Provider Emergency Medicine; PCP Family Medicine; Visit Provider Emergency Medicine
DX: J47.0 Bronchiectasis with acute lower respiratory infection (principal); N18.30 Chronic kidney disease, stage 3 unspecified; Z87.891 Personal history of nicotine dependence
CPT/HCPCS: 71046; 99282

== ENCOUNTER 2023-06-11 14:45 | Emergency (ER) | payer MEDICARE, SELFPAY ==
[2023-06-11 14:47] VITALS: BP 112/97; PULSE 65; RESP 16; TEMP 36.8; O2SAT 94; BMI 28.7
--- NOTE | 2023-06-11 15:07 | VDUE_ITS ---
Reason For Study: Lt Arm Pain Right Proximal Left Proximal Right subclavian vein is spontaneous, widely Left jugular vein is spontaneous, widely patent, phasic, with no intraluminal patent, phasic, with no intraluminal echogenicity noted. echogenicity noted. Left subclavian vein is spontaneous, widely patent, phasic, with no intraluminal echogenicity noted. Left Arm Left axillary vein is spontaneous, patent, phasic, competent, compressible and demonstrates augmentation. Left brachial vein is compressible. Left cephalic vein is compressible. Left basilic vein is compressible. Left Lower Arm Left radial vein is compressible. Left ulnar vein is compressible. VL/Venous Duplex US, Unilateral Interpretation Summary No evidence for acute deep venous thrombosis[left] upper extremity with patent and compressible cephalic and basilic veins. Normal flow patterns right subclavian vein Ordering Physician: Isaiah Fernandez Performed By: Heladio Zelaya RVT ???
--- NOTE | 2023-06-11 15:08 | EX.ED.UPPERE ---
HPI History of Present Illness Chief Complaint: Wound Informant: patient Narrative Narrative: Patient presents with a sore red area on her left forearm. Patient had a Gammagard infusion done yesterday. She states the connector did come off and some of the liquid leaked on her skin but they did not have to replace the IV. They did comment that the IV was in a very small vein. But they had no problems infusing it. She had no pain or symptoms at the time. Many hours later and then now today she has developed some redness and soreness along the left volar forearm. It stops prior to getting up to the elbow. She states she otherwise feels great. She has no chest pain cough shortness of breath nausea vomiting or fevers. She has never had DVT or PE. She is not on any blood thinners. She has had approximately 16 of these infusions and has not had reactions before. She was seen at urgent care today. They started her on doxycycline but stated that she may need further evaluation. [facility] Medical History Basal cell carcinoma (BCC) Cardiac murmur CKD (chronic kidney disease) stage 3, GFR 30-59 ml/min Essential hypertension Hypothyroidism IBS (irritable bowel syndrome) Malignant melanoma Mixed hyperlipidemia Home Medications cholecalciferol (vitamin D3) 50 mcg (2,000 unit) capsule 2,000 unit PO 02/13/20 [History Last Taken Unknown] diltiazem HCl 120 mg capsule,extended release 24 hr 120 mg PO BID 02/13/20 [History Last Taken Unknown] levothyroxine 75 mcg tablet 75 mcg PO DAILY 02/13/20 [History Last Taken Unknown] aspirin 81 mg tablet,delayed release 81 mg PO DAILY 06/24/21 [History Last Taken Unknown] atorvastatin 10 mg tablet 10 mg PO DAILY 06/24/21 [History Last Taken Unknown] labetalol 100 mg tablet 100 mg PO DAILY 06/24/21 [History Last Taken Unknown] losartan 100 mg tablet 100 mg PO DAILY 06/24/21 [History Last Taken Unknown] sertraline 25 mg tablet 25 mg PO DAILY 06/24/21 [History Last Taken Unknown] doxycycline monohydrate 100 mg capsule 100 mg PO BID #14 CAPSULES 10/09/22 [Rx Last Taken Unknown] Allergy/AdvReac Type Severity Reaction Status Date / Time ciprofloxacin [From Cipro] Allergy Other Verified 06/11/23 14:49 Penicillins Allergy Rash Verified 06/11/23 14:49 Sulfa (Sulfonamide Allergy Anaphylaxis Verified 06/11/23 14:49 Antibiotics) Opioids - Morphine Analogues AdvReac Vomiting Verified 06/11/23 14:49 Family History Mother CAD (coronary artery disease) Myocardial infarction CVA (cerebral vascular accident) Surgical History History of arthroscopy of right knee History of lumbar spinal fusion History of lumbosacral spine surgery Social History Smoking Status: Former smoker alcohol intake: current details: occasional substance use type: does not use caffeine: Yes Type: tea Number of servings: 1 ROS ROS ED Constitutional Constitutional ED: Denies chills, fever(s), subjective or sweats ENT ENT ED: Denies rhinorrhea Cardiovascular Cardiovascular: Denies chest pain, palpitations or racing heartbeat Respiratory/Chest Respiratory/Chest: Denies cough or dyspnea Gastrointestinal Gastrointestinal: Denies nausea or vomiting Musculoskeletal Musculoskeletal: Denies myalgias Integumentary Reports rash Neurologic Neurologic: Denies headache(s), paresthesias or weakness Hematologic/Lymphatic Hematologic/Lymphatic: Denies easy bleeding, easy bruising or lymphadenopathy Allergic/Immunologic Allergic/Immunologic ED: Denies urticaria EXAM Physical Exam Narrative Exam Narrative: Patient awake alert no acute distress laying comfortably in bed. HEENT shows normal mucous membranes no trauma Neck is supple with normal range of motion no JVD. Heart is regular rate about 60 no murmur gallop or rub. Peripheral pulses including the involved extremity are normal. Lungs are clear bilaterally and breathing is easy and unlabored. Saturations are normal at 94% on room air showing no notable hypoxia. Abdomen is soft and nontender. Extremities are normal other than the left forearm. I can see the site where an IV was placed in the distal left volar forearm. Along the course of the vein for about 6 inches there is some slight darkening and redness of the skin. There is mild tenderness. But I do not feel any cord. No crepitance. It does not actually feel warm. This looks more like a phlebitis and does not look infectious. No proximal lymph nodes. There is no swelling at all of the hand or arm itself. Const Vital Signs: 06/11/23 14:47 Temperature 98.2 F Temperature Source Temporal Pulse Rate 65 Respiratory Rate 16 Blood Pressure 112/97 H Blood Pressure Mean 102 Pulse Ox 94 Oxygen Delivery Method Room Air MDM MDM MDM Narrative Medical decision making narrative: I initially ordered an ultrasound. After some time I found out that we do not have them available today. Therefore we initiated work-up with the labs. CBC shows no marked new abnormalities. Electrolytes showed mild elevation in creatinine. D-dimer was elevated. With her having recent IV, pain and tenderness along the vein, elevated D-dimer we will give her a dose of Lovenox to cover her for the next 24 hours. I did discuss the case with staff here and nursing supervisor dock states we can place an outpatient order for ultrasound and it can be done between 9 and 1 tomorrow. If that is positive she will need to come back here to get further prescription and treatment. My suspicion is that this is most likely a superficial phlebitis though. I explained the situation plan and needed potential therapy in the future to the patient. On discussion of risk factors there is no acute risk factor to give a dose of Lovenox now. Discharge Plan Triage Chief Complaint: Wound ED Provider: Isaiah Fernandez Dx/Rx/DC Orders Clinical Impression: Superficial phlebitis of arm, D-dimer, elevated Instructions: ED Thrombophlebitis, Superficial Prescriptions: No Action levothyroxine 75 MCG tablet 75 mcg PO DAILY diltiazem HCl 120 MG capsule,extended release 24hr 120 mg PO BID cholecalciferol (vitamin D3) 2,000 UNIT capsule 2,000 unit PO doxycycline monohydrate 100 mg capsule 100 mg PO BID Qty: 14 0RF sertraline 25 mg tablet 25 mg PO DAILY atorvastatin 10 mg tablet 10 mg PO DAILY labetalol 100 mg tablet 100 mg PO DAILY aspirin 81 mg tablet,delayed release (DR/EC) 81 mg PO DAILY losartan 100 mg tablet 100 mg PO DAILY Other Ambulatory Orders: Venous Duplex US, Unilateral (Stat) Facility: [facility] - Location: [facility] Ordered By: Dr. Isaiah Fernandez Primary Care Provider: Herminio Wise Referrals: Herminio Wise MD [Primary Care Provider] - 3-5 Days Disposition Disposition: Home, Self Care Discharge Date/Time: 06/11/23 18:58
--- NOTE | 2023-06-11 16:28 | ED.RN ---
family upset d/t delay in imaging.
[2023-06-11 17:12] LABS: Absolute Lymphocyte Count 2.46 X10^3/uL (0.83-4.51); Absolute Neutrophil Count 1.9 X10^3/uL (2.0-7.7); Basophil# 0.05 X10^3/uL; Eosinophil# 0.19 X10^3/uL; Eosinophils% 3.7 % (0-5); Hematocrit 37.3 % (37-47); Hemoglobin 12.4 g/dL (12.0-15.0); Lymphocyte # 2.46 X10^3/ul (0.83-4.51); Lymphocyte % 48.5 % (19-41); Mean Corp Hgb Conc 33.2 g/dL (32-36); Mean Corpuscular Hgb 29.9 pg (27.0-32.0); Mean Corpuscular Volume 89.9 fL (81-99); Mean Platelet Vol. 10.6 fl (6.2-12.0); Monocyte# 0.49 X10^3/uL; Monocyte% 9.7 % (0-10); NRBC Flagged by Analyzer 0 % (0-5); Neutrophil # 1.87 X10^3/uL (2.7-7.7); Neutrophil % 36.9 % (47-70); Platelet Count 174 K/mm3 (150-450); RBC Distribution Width CV 13.1 % (11.6-14.6); RBC Distribution Width SD 43.2 fl (35.1-43.9); Red Blood Count 4.15 M/mm3 (4.2-5.4); White Blood Count 5.1 K/mm3 (4.4-11.0)
[2023-06-11 17:24] LABS: Anion Gap 4 (5-15); BUN 24 mg/dL (7-18); BUN/Creat Ratio 18.5 RATIO (10-20); Calcium,Total 9.6 mg/dL (8.5-10.1); Chloride 109 mmol/L (98-107); EST Glomerular Filtration Rate 42 mL/min (>60); Est Glom Filt Rate - Afr Amer 50 mL/min (>60); Estimated Creatinine Clearance 23.55 ml/min; Glucose 90 mg/dL (74-106); Potassium 3.8 mmol/L (3.5-5.1); Sodium Level 140 mmol/L (136-145)
[2023-06-11 18:24] LABS: D-Dimer Quantitative (DVT/PE) 1.11 FEU/ug/m (0.27-0.49)
[2023-06-11] MEDS: Enoxaparin 100 MG/ML Syringe 90 MG SC (18:54)
== END 2023-06-11 18:58 | disposition home or self-care (01) ==
PROVIDERS: Emergency Provider Emergency Medicine; PCP Family Medicine; Visit Provider Emergency Medicine
DX: I80.8 Phlebitis and thrombophlebitis of other sites (principal); N18.30 Chronic kidney disease, stage 3 unspecified; R79.89 Other specified abnormal findings of blood chemistry; Z87.891 Personal history of nicotine dependence
CPT/HCPCS: 36415; 80048; 85025; 85379; 93971; 99282

== ENCOUNTER → 2023-06-12 | Outpatient (CLI) | payer MEDICARE, SELFPAY | END | disposition home or self-care (01) | LOC: VL 11:01 | PROVIDERS: PCP Family Medicine; Referring Provider Emergency Medicine; Visit Provider Emergency Medicine | DX: M79.602 Pain in left arm (principal) ==

== ENCOUNTER → 2023-08-22 14:01 | Outpatient (CLI) | payer MEDICARE, SELFPAY ==
--- NOTE | 2023-08-22 14:08 | EX.OP.PR.TP ---
General Information2 General Information Admitting Diagnosis: Bronchiectasis Secondary Diagnosis: Persistent asthma without complications Personal Learning Style/Barriers Personal Learning Style:: Audio/Visual Barriers to Learning: Vision impaired Stage of change r/t lifestyle modifications: Prepared Educational Classes [place]: Living with Chronic Lung Disease: Initial Assessment, Breathing Retraining: Initial Assessment, Exercise: Initial Assessment and Energy Conservation: Initial Assessment Education/Goals Individual Counseling: Initial Assessment: Overweight/Obesity [place] Patient Goals: Increase muscle strength: Initial Assessment and Experience less dyspnea: Initial Assessment Exercise - Initial Assessment Visit Date of Eval: 08/22/23 Session Number:: 0 (Pre-program evaluation) Problem/Goals Problems: Deconditioning Goals:: [place]: 2-3/wk for 18 weeks [36 sessions] Physician Prescribed Exercise Modalities: Treadmill, Airdyne and NuStep Intensity: 60-80% of age predicted maximum heart rate reserve METs - Progression 0.5-1.0 weekly:: 3.0 Target HR:: 103 (THRR 83-103) Resting Blood Pressure: 136/88 Minimum SpO2 with exercise: 98 (Baseline at rest.) EKG Type: Sinus rhythm Plan Plan and Plan to Review:: Benefits of exercise, Core components of exercise, How to measure dyspnea level, How to monitor dyspnea level, Exercise intensity, Exercise safety guideline, Home exercise guidelines and Epifanio: 3-4/11-13 Home Exercise Mode: Walking Exercise - 30-Day Assessment Visit Date of Eval: 08/22/23 Session Number:: 0 (Pre-program evaluation) Physician Prescribed Exercise Target HR:: 103 (THRR 83-103) Resting Blood Pressure: 136/88 Minimum SpO2 with exercise: 98 (Baseline at rest.) EKG Type: Sinus rhythm Exercise - 60-Day Assessment Visit Date of Eval: 08/22/23 Session Number:: 0 (Pre-program evaluation) Physician Prescribed Exercise Target HR:: 103 (THRR 83-103) Resting Blood Pressure: 136/88 Minimum SpO2 with exercise: 98 (Baseline at rest.) EKG Type: Sinus rhythm Exercise - 90-Day Assessment Visit Date of Eval: 08/22/23 Session Number:: 0 (Pre-program evaluation) Physician Prescribed Exercise Target HR:: 103 (THRR 83-103) Resting Blood Pressure: 136/88 Minimum SpO2 with exercise: 98 (Baseline at rest.) EKG Type: Sinus rhythm Exercise - Final Assessment Visit Session Number:: 0 (Pre-program evaluation) Physician Prescribed Exercise Modalities: Treadmill, Airdyne and NuStep Resting Blood Pressure: 136/88 Minimum SpO2 with exercise: 98 (Baseline at rest.) EKG Type: Sinus rhythm Nutrition/Wt Mgmt - Initial Visit Date of Eval: 08/22/23 Session Number:: 0 (pre-program evaluation) Problems/Goals Problems: Overweight (BMI is 27) Weight Management Knowledge Deficit Management of:: Weight control w/Prednisone Admit Height:: 5 ft Admit Weight:: 142 lb Admit BMI:: 27.7 Intervention Referral to dietitian:: No Will attend diet classes:: No Intervention/Plan: Instruct on ideal BMI & set weight loss goal w/patient Plan Nutrition Plan: Yes: Review BMI or WC & identify target wt & strategies for wt control, Yes: Nutrition education class: and Yes: Medication education class [Prednisone]: Nutrition/Wt Mgmt - 30-Day Visit Session Number:: 0 (pre-program evaluation) Weight Management Height: 5 ft Weight:: 142 lb BMI: 27.7 Nutrition/Wt Mgmt - 60-Day Visit Session Number:: 0 (pre-program evaluation) Weight Management Height: 5 ft Weight:: 142 lb BMI: 27.7 Nutrition/Wt Mgmt - 90-Day Visit Session Number:: 0 (pre-program evaluation) Weight Management Height: 5 ft Weight:: 142 lb BMI: 27.7 Nutrition/Wt Mgmt - Final Visit Session Number:: 0 (pre-program evaluation) Weight Management Height: 5 ft Weight:: 142 lb BMI: 27.7 Psychosocial - Initial Assess Visit Date of Eval: 08/22/23 Session Number:: 0 (pre-program evaluation) Problems/Goals History of Emotional Disorders: Anxious and Depression Psychosocial Goals: 1. Patient is free from overwhelming symtoms of depression (or anxiety, 2. Identifies personal stressors & states the strategies for managing, 3. Identifies activities to decrease isolation and/or symptoms of, 4. Improved psychosocial coping skills., 5. Verbalizes coping strategies., 6. Adequate treatment of depression. and 7. Improved Q.O.L. Psychosocial Test Tool Used:: Pulmonary QOL and PHQ-9 Questionnaire Referred to MD for counseling:: No Referral to Behavioral Health PS - Interventions: Yes: Attend Stress Management Classes and No: Referral to Behavioral Health if PHQ-9 score >9:, No: Referral to [facility] and No: Referral to Physician if PHQ-9 if score is 5-9: Intervention/Plan: See List Interventions/Plan:: Assess stressors,coping strategies & signs of derpression on admission, Instruct/assist pt to develop coping & personal stress Mgt strategies, Instruct patient to recognize signs & symptoms of depression and Instruct patient to recog Psychosocial - 30-Day Visit Session Number:: 0 (pre-program evaluation) Problems/Goals History of Emotional Disorders: Anxious and Depression Psychosocial Goals: 1. Patient is free from overwhelming symtoms of depression (or anxiety, 2. Identifies personal stressors & states the strategies for managing, 3. Identifies activities to decrease isolation and/or symptoms of, 4. Improved psychosocial coping skills., 5. Verbalizes coping strategies., 6. Adequate treatment of depression. and 7. Improved Q.O.L. Psychosocial Test Tool Used:: Pulmonary QOL and PHQ-9 Questionnaire Referred to MD for counseling:: No Referral to Behavioral Health PS - Interventions: Yes: Attend Stress Management Classes and No: Referral to Behavioral Health if PHQ-9 score >9:, No: Referral to [facility] and No: Referral to Physician if PHQ-9 if score is 5-9: Plan Interventions/Plan:: Assess stressors,coping strategies & signs of derpression on admission, Instruct/assist pt to develop coping & personal stress Mgt strategies, Instruct patient to recognize signs & symptoms of depression and Instruct patient to recog Psychosocial - 60-Day Visit Session Number:: 0 (pre-program evaluation) Problems/Goals History of Emotional Disorders: Anxious and Depression Psychosocial Goals: 1. Patient is free from overwhelming symtoms of depression (or anxiety, 2. Identifies personal stressors & states the strategies for managing, 3. Identifies activities to decrease isolation and/or symptoms of, 4. Improved psychosocial coping skills., 5. Verbalizes coping strategies., 6. Adequate treatment of depression. and 7. Improved Q.O.L. Psychosocial Test Tool Used:: Pulmonary QOL and PHQ-9 Questionnaire Referred to MD for counseling:: No Referral to Behavioral Health PS - Interventions: Yes: Attend Stress Management Classes and No: Referral to Behavioral Health if PHQ-9 score >9:, No: Referral to [facility] and No: Referral to Physician if PHQ-9 if score is 5-9: Plan Interventions/Plan:: Assess stressors,coping strategies & signs of derpression on admission, Instruct/assist pt to develop coping & personal stress Mgt strategies, Instruct patient to recognize signs & symptoms of depression and Instruct patient to recog Psychosocial - 90-Day Visit Session Number:: 0 (Pre-program evaluation) Problems/Goals History of Emotional Disorders: Anxious and Depression Psychosocial Goals: 1. Patient is free from overwhelming symtoms of depression (or anxiety, 2. Identifies personal stressors & states the strategies for managing, 3. Identifies activities to decrease isolation and/or symptoms of, 4. Improved psychosocial coping skills., 5. Verbalizes coping strategies., 6. Adequate treatment of depression. and 7. Improved Q.O.L. Psychosocial Test Tool Used:: Pulmonary QOL and PHQ-9 Questionnaire Referred to MD for counseling:: No Referral to Behavioral Health PS - Interventions: Yes: Attend Stress Management Classes and No: Referral to Behavioral Health if PHQ-9 score >9:, No: Referral to [facility] and No: Referral to Physician if PHQ-9 if score is 5-9: Plan Interventions/Plan:: Assess stressors,coping strategies & signs of derpression on admission, Instruct/assist pt to develop coping & personal stress Mgt strategies, Instruct patient to recognize signs & symptoms of depression and Instruct patient to recog Psychosocial - Final Assess Visit Session Number:: 0 (Pre-program evaluation) Problems/Goals History of Emotional Disorders: Anxious and Depression Psychosocial Goals: 1. Patient is free from overwhelming symtoms of depression (or anxiety, 2. Identifies personal stressors & states the strategies for managing, 3. Identifies activities to decrease isolation and/or symptoms of, 4. Improved psychosocial coping skills., 5. Verbalizes coping strategies., 6. Adequate treatment of depression. and 7. Improved Q.O.L. Psychosocial Test Tool Used:: Pulmonary QOL and PHQ-9 Questionnaire Referred to MD for counseling:: No Referral to Behavioral Health PS - Interventions: Yes: Attend Stress Management Classes and No: Referral to Behavioral Health if PHQ-9 score >9:, No: Referral to [facility] and No: Referral to Physician if PHQ-9 if score is 5-9: Plan Interventions/Plan:: Assess stressors,coping strategies & signs of derpression on admission, Instruct/assist pt to develop coping & personal stress Mgt strategies, Instruct patient to recognize signs & symptoms of depression and Instruct patient to recog Oxygen & Oxygen Titration Init Visit Date of Ev: 08/22/23 Session Number:: 0 (pre-program evaluation) Initial Assessment Oxygen on Admission: None SpO2:: 98 (Baseline at rest.) Patient Reports:: Non-productive cough Goal Oxygen & Oxygen Tritration Goals: Effective hypoxemia control Plans Plan: Monitor SpO2 rest & with exercise Reviewed prescribed medications:: Purpose, Schedule, Side effects and Importance of compliance Instruct correct technique/timing & care:: MDI, DPI, Nebulizer and Return demo use of inhaler Bronchial Hygiene Plan: Hydration, Hand hygiene, Signs/symptoms to report: and Influenza/Pneumovax vaccines Oxygen & Oxygen Titration 30D Visit Session Number:: 0 (Pre-program evaluation) Reassessment SpO2:: 98 (Baseline at rest.) Oxygen & Oxygen Titration 60D Visit Session Number:: 0 (Pre-program evaluation) Reassessment SpO2:: 98 (Baseline at rest.) Oxygen & Oxygen Titration 90D Visit Session Number:: 0 (Pre-program evaluation) Reassessment SpO2:: 98 (Baseline at rest.) Oxygen & Oxygen Titration NAZIA Visit Session Number:: 0 (Pre-program evaluation) Reassessment SpO2:: 98 (Baseline at rest.) Core Components - Initial Visit Date of Eval: 08/22/23 Session Number:: 0 (Pre-program evaluation) Hypertension Hypertension Diagnosis:: Not Applicable [place] [employer] Hypertension Guidelines Tobacco - Initial Assessment Tobacco Program Goals Stages of Change:: Action How long ago did you quit using tobacco products?: Greater than or equal to 6 months ago Do you use smokeless tobacco?: No Smoking Cessation Referral:: No Individual Education/Counseling:: No Education Schedule Given:: Yes Gave Education Materials For:: Pulmonary Disease, Risk Factors, Breathing Techniques, Medical Compliance, Pulmonary A&P, Exacerbation Signs & Symptoms and Stress & Relaxation Exacerbation Mgmt & Airway Clearance Problems:: No home O2 Patient Reports:: Non-productive cough Plan: Monitor SpO2 rest & with residential solar sales consultant correct technique/timing & care:: MDI, DPI, Nebulizer and Return demo use of inhaler Bronchial Hygiene Plan: Hydration, Hand hygiene, Signs/symptoms to report: and Influenza/Pneumovax vaccines Medication Interventions/plans: Instruct on medication effects & side effects and Instruct importance of taking meds as ordered & assist problem solving Medication Goals: Adherence to prescribed medications and Correct technique/timing & care of MDI, DPI, nebulizer, and spacer. Does pt report taking home meds as prescribed?: Yes Medications: Yes: MDI, Yes: DPI and Yes: NEB Reviewed prescribed medications:: Purpose, Schedule, Side effects and Importance of compliance Diabetes Diabetes:: No Referral to dietitian:: No Will attend diet classes:: No Core Components - 30 DAYS Visit Session Number:: 0 (Pre-program evaluation) Hypertension Hypertension Diagnosis:: Not Applicable [place] [employer] Hypertension Guidelines Tobacco - 30-Day Tobacco Program Goals Stages of Change:: Action Do you use smokeless tobacco?: No Smoking Cessation Referral:: No Education Schedule Given:: Yes Gave Education Materials For:: Pulmonary Disease, Risk Factors, Breathing Techniques, Medical Compliance, Pulmonary A&P, Exacerbation Signs & Symptoms and Stress & Relaxation Diabetes Diabetes:: No Core Components - 60 DAYS Visit Session Number:: 0 (Pre-program evaluation) Hypertension Hypertension Diagnosis:: Not Applicable [place] [employer] Hypertension Guidelines Tobacco - 60-Day Tobacco Program Goals Stages of Change:: Action Do you use smokeless tobacco?: No Smoking Cessation Referral:: No Individual Education/Counseling:: No Education Schedule Given:: Yes Gave Education Materials For:: Pulmonary Disease, Risk Factors, Breathing Techniques, Medical Compliance, Pulmonary A&P, Exacerbation Signs & Symptoms and Stress & Relaxation Diabetes Diabetes:: No Core Components - 90 DAYS Visit Session Number:: 0 (Pre-program evaluation) Hypertension Hypertension Diagnosis:: Not Applicable [place] [employer] Hypertension Guidelines Tobacco - 90-Day Tobacco Program Goals Stages of Change:: Action Do you use smokeless tobacco?: No Smoking Cessation Referral:: No Individual Education/Counseling:: No Education Schedule Given:: Yes Gave Education Materials For:: Pulmonary Disease, Risk Factors, Breathing Techniques, Medical Compliance, Pulmonary A&P, Exacerbation Signs & Symptoms and Stress & Relaxation Diabetes Diabetes:: No Core Components - Final Visit Session Number:: 0 (Pre-program evaluation) Hypertension Hypertension Diagnosis:: Not Applicable [place] [employer] Hypertension Guidelines Tobacco - Final Tobacco Program Goals Stages of Change:: Action Do you use smokeless tobacco?: No Smoking Cessation Referral:: No Individual Education/Counseling:: No Education Schedule Given:: Yes Diabetes Diabetes:: No Patient Health Questionnaire PHQ-9 Screening Initial Assessment: 1. Little interest or pleasure in doing things: Not at all 2. Feeling down, depressed, or hopeless: Several days 3. Trouble falling or staying asleep, or sleeping too much: Several days 4. Feeling tired or having little energy: More than half the days 5. Poor appetite or overeating: Not at all 6. Feeling bad about yourself -- or that you are a failure or have let yourself or your family down: Not at all 7. Trouble concentrating on things, such as reading the newspaper or watching television: Not at all 8. Moving or speaking so slowly that other people could have noticed. Or the opposite - being so fidgety or restless that you have been moving around a lot more than usual: Not at all 9. Thoughts that you would be better off , or of hurting yourself in some way: Not at all How difficult have these problems made it for you to do your work, take care of things at home, or get along with other people?: Somewhat difficult Total Score: 4 Knowledge Questionaire (BCKQ) Information Information: [place] COPD Knowledge Questionnaire (BCKQ) This questionnaire is designed to find out what you know about your lung problem. It should be completed without help form anyone else. This usually takes between 10 and 20 minutes. Your answers will help us to find out what information you need to help you to understand and manage your lung condition. Tunde the viejas which you think is the correct answer. Questions 1. In COPD: a. In COPD the word chronic means it is severe: Don't know b. COPD can only be confirmed by breathing tests: Don't know c. In COPD ther is usually gradual worsening over time: Don't know d. In COPD oxygen levels in the blood are always low: Don't know e. COPD is usually in people less than 40 years old: Don't know 2. COPD: [place] than 80% of COPD cases are caused by cigarette smoking: Don't know b. COPD can be caused by occupational dust exposure: Don't know c. Longstanding asthma can develop into COPD: Don't know d. COPD is commonly an inherited disease: Don't know e. Women are less vunerable to the effects of cigarette than men: Don't know 3. The following symptoms are Common in COPD: a. Swelling of the ankles is common in COPD:: Don't know b. Fatigue [tiredness] is common in COPD: Don't know c. Wheezing is common in COPD: Don't know d. Crushing chest pain is common in COPD: Don't know e. Rapid weight loss is common in COPD: Don't know 4. Breathlessness in COPD: a. Severe breathlessness prevents travel by air: Don't know b. Breathlessness can be worsened by eating large meals: Don't know c. Breathlessness means that your oxygen levels are low: Don't know d. Breathlessness is a normal response to exercise: Don't know e. Breathlessness is primarily caused by a narrowing of the bronchial tubes: Don't know 5. Phlegm (sputum): a. Coughing phlegm is a common symptom in COPD: Don't know b. Clearing phlegm is more difficult if you get dehydrated: Don't know c. Bronchodilator inhalers can help clear phlegm: Don't know d. Phlegm causes harm if swallowed: Don't know e. Clearing phlegm can be assisted by breathing exercises: Don't know 6. Chest infections / exacerbations: a. Chest infections often cause coughing of blood: Don't know b. Chest infection phlegm usually becomes coloured (ylw/grn): True cExerbations (episodes of worsening) can occur in the absence of chest infection: True d. Chest infections are always accompanied by a high temperature: Don't know e. Steroid tablets should be taken whenever there is an exacerbation: True 7. Excercise in COPD: aWalking excercises better than breathing to improve fitness: Don't know b. Exercise should be avoided as it strains the lungs: False c. Exercise can help maintain your bone density: True d. Exercise helps relieve depression: True e. Exercise should be stopped if it makes you breathless: Don't know 8. Smoking: a. Stopping smoking will reduce the risk of heart disease: True b. Stopping smoking will slow down further lung damage: True c. Stopping smoking is pointless as the damage is done: False d.Stopping smoking usually results in improved lung function: Don't know eNicotine replacement therapy only available on prescription: Don't know 9. Vaccination: a. A flu jab is recommended every year: True b. You can get flu from having a flu jab: False c. You can only have a flu jab if you are 65 or over: False d. A pneumonia jab protects against all forms of pneumonia: False e.You can have a pneumonia jab and a flu job on the same day: Don't know 10. Inhaled bronchodilators: a. Bronchodilators act quickly (within 10 minutes): False b. Both short & long acting bronchodilators can be taken on the same day: True c. Spacers (volumatic,nebuhaler,serochamber)should be dried w/atowel after washing: Don't know d. A spacer device increases the medication to the lungs: Don't know e. Tremor may be a side effect of bronchodilators: Don't know 11. Antibiotic treatment in COPD: a. To be effective, the course should last at least 10 days: Don't know b. Excessive use of antibiotics can cause resistant bacteria (germs): True c. Antibiotics will clear all chest infections: False d. Antibiotic treatment is necessary for an exacerbation (worsening) however mild: True e. Seek advice if antibiotics cause severe diarrhoea: True 12. Steroid tablets given for COPD (eg Prednisolone): a. Steroid tablets help strengthen muscles: Don't know b. Steroid tablets should be avoided if there is a chest infection: False c. The risk of long-term side effects due to steroids is less w/short courses then w/continous treatment: True dIndigestion is common side effect from using steroid tablet: False e. Steroid tablets can increase your appetite: Don't know 13. Inhaled steroids (brown, red or orange): a. Inhaled steroids should be stopped if you are given steroid tablets: Don't know bSteroid inhalers can be used for rapid relief breathlessnes: Don't know c. Spacer devices reduce the risk of getting thrush in the mouth: True d.Steroid inhaler should be taken before your bronchodilator: Don't know e. Inhaled steroids improve lung function in COPD: True COPD Knowledge Test Total Score:: 20 Self-Efficacy 6-Item Scale Initial Assessment: We would like to know how confident you are in doing certain activities. Please select your confidence level for: Fatigue Select Number: 7 Physical Discomfort or Pain Select Number: 8 Emotional Distress Select Number: 4 Other Symptoms or Health Problems Select Number: 5 Different Tasks and Activities Select Number: 7 Medication Select Number: 10 Total Score:: 6 Nutrition Survey Nutrition Survey Instructions Scoring Instructions Nutrition Survey Initial: Have you lost >10 lbs over the past 2 months without trying?: No Are you following a special diet at home for diabetes, low fat, or low salt?: No Are you interested in meeting with a dietitian for help understanding your diet?: No Do you eat less than 3 meals a day?: No Do you eat fatty meats (fr[place], sausage, ribs, etc), fried foods, desserts, large amounts of salad dressings, margarine, butter, or cheese most days?: No Do you have food allergies? [Enter types in comment field]: No Do you eat in restaurants more than 3 times a week?: No Do you season food with salt, seasoning salt, or garlic salt?: Yes Do you used canned, boxed, frozen meals, or soups, seasoning packets?: Yes Total Score:: 2
--- NOTE | 2023-08-22 14:08 | EX.OP.PR.HP ---
History of Present Illness General Arrival date:: 08/22/23 Arrival time:: 14:12 Date of Referral:: 08/03/23 Date of Evaluation: 08/22/23 Referring Physician: Karen Goncalves MD @ [facility] Primary Diagnosis: Bronchiectasis, persistent asthma History of Present Pulmonary Event mMRC Breathless Scale: When is the patient short of breath? Y/N Grade: Description of Breathlessness: 0 I only get breathless with strenuous exercise. 1 I get short of breath when hurrying on level ground or walking up a slight hill. 2 On level ground, I walk slower than people of the same age because of breathless, or have to stop for breath when walking at my own pace. y 3 I stop for breath after walking 100 yards or after a few minutes on level ground. n 4 I am too breathless to leave the house or I am breathless when dressing. Respiratory Problems: Yes Limited Range of Motion, Fatigue, Able to Speak in Full Sentences, Anxiety and Dyspnea with Activity; No Dyspnea at Rest or Cough with Secretions Medications Home Medications cholecalciferol (vitamin D3) 50 mcg (2,000 unit) capsule 2,000 unit PO 02/13/20 diltiazem HCl 120 mg capsule,extended release 24 hr 120 mg PO BID 02/13/20 levothyroxine 75 mcg tablet 75 mcg PO DAILY 02/13/20 aspirin 81 mg tablet,delayed release 81 mg PO DAILY 06/24/21 atorvastatin 10 mg tablet 10 mg PO DAILY 06/24/21 labetalol 100 mg tablet 100 mg PO DAILY 06/24/21 losartan 100 mg tablet 100 mg PO DAILY 06/24/21 sertraline 25 mg tablet 25 mg PO DAILY 06/24/21 doxycycline monohydrate 100 mg capsule 100 mg PO BID #14 CAPSULES 10/09/22 Allergies Allergies ciprofloxacin [From Cipro] Allergy (Verified 06/11/23 14:49) Other I had torn a tendon in my foot Penicillins Allergy (Verified 06/11/23 14:49) Rash Sulfa (Sulfonamide Antibiotics) Allergy (Verified 06/11/23 14:49) Anaphylaxis Opioids - Morphine Analogues Adverse Reaction (Verified 06/11/23 14:49) Vomiting Secretions Thick:: No Thin:: No Sleep Disorder Evaluation Hx of Sleep Apnea: No Do you snore loudly (louder than talking or can be heard through closed doors)?: No Do you often feel tired/ fatigued/ sleepy during daytime?: Yes Has anyone observed you stop breathing during sleep?: No History of Hypertension (for STOP score): No STOP Results: Negative Medical Utilization Medical Devices Do you use a peak flow meter at home?: No Do you use a spacer device with your inhalers?: No Medical Utilization Number of hospital visits in the last year?: 0 Number of emergency room visits in the last year?: 3 (related to her exacerbation) Do you see your physician on a regular schedule?: Yes How often?: PCP 6 months, It Technical Architect every 3 months Advanced Directives Advanced Directives Power of Camouflage Assembler: Yes Living Will: Yes Advance Directives Information Provided: No Advance Directives on File: Yes Past Medical History Covid-19 Screening Physicial Symptoms Fever: No Unexplained muscle aches: No Current respiratory symptoms: No Upper respiratory infections symptoms: No Gastro-intestinal symptoms: No [id number] symptoms: No Other Clinical Concerns Has tested positive for COVID-19 in last 30 days: No Date of testin08/22/23 (Patient has been fully vaccinated with boosters) Exposure Risk Had contact w/person w/symptoms or Covid-19 (+) last 14 days: No Has High Risk Exposures ID'd by Health dept/Inf Control team: No Pertinent Comorbidities 65 years or older:: Yes Lives in Assisted Living facility:: No Has a chronic lung disease or moderate to severe asthma:: Yes Has a serious heart condition:: No Immunocompromised:: No Severely obese (Body Mass Index of 40 or higher):: No Diabetic:: No Has chronic kidney disease undergoing dialysis:: No Has liver disease:: No Medical History Medical History Basal cell carcinoma (BCC) Cardiac murmur CKD (chronic kidney disease) stage 3, GFR 30-59 ml/min Essential hypertension Hypothyroidism IBS (irritable bowel syndrome) Malignant melanoma Mixed hyperlipidemia Surgical History Surgical History History of arthroscopy of right knee History of lumbar spinal fusion History of lumbosacral spine surgery Significant Family History Family History Mother CAD (coronary artery disease) Myocardial infarction CVA (cerebral vascular accident) Current/ Previous Services Pulmonary Rehab:: No Social History Smoking History Smoking Status: Former smoker Hx Tobacco Use: Yes Hx Smoking Exposure: No Alcohol Use Alcohol Usage: No Substance Abuse Hx Substance Use: No Occupation Occupation (List type of work in comments):: Retired Hobbies, Recreation, Social Activities Hobbies: Sewing (sewing quilting), Reading, Exercise (treadmill at home 30 minutes day) and Other (theater) Recreational Activities: I am able to engage in most, but not all activities Functioning ADL/IADL Current Ability Current Ability: Independent: Self-Care (e.g.,grooming, dressing, & bathing), Independent: Ambulation, Independent: Transfer and Independent: Household tasks (e.g., light meal prep, laundry, shopping) Pt Functioning Prior to Problem Prior Functioning: Self-Care (e.g.,grooming, dressing, & bathing): Independent, Ambulation: Independent, Transfer: Independent and Household tasks (e.g., light meal prep, laundry, shopping): Independent Social Environment Status Marital Status: Current Living Arrangements Living Environment:: Alone Safety Do you feel safe in your surroundings?: Yes Review of Systems Review of Systems Review of Systems Respiratory: Reports SOB upon Exertion; Denies Sexual changes Pain Is Patient Pain Free?: No Pain Location: back Previous experience dealing with pain?: when sitting and have back support fine. Risk Factor Assessment Chief Complaint Chief Complaint: Patient is a 83 yr female referred by Dr. Goncalves at [facility] for her bronchiectasis and persistent asthma. Vital Signs Temperature: 98.6 F Pulse Rate: 71 Pulse Rhythm: Regular Respiratory Rate: 12 Pulse Ox: 98 Blood Pressure: 136/88 Diabetes Nutrition Referral for Diabetes: No Obesity Height: 5 ft Weight:: 142 lb Weight in Pounds: 142.0 lbs Weight Source: Estimated by Patient Body Mass Index (BMI): 27.7 Nutritional Referral for Obesity: No Physical Activity Physical Inactivity: Reg Exercise 30 min/day (treadmill) Risk Stratification Risk Guidelines: Lowest Risk: Risk Factor for Smoking, Risk Factor for Dyslipidemia, Risk Factor for Diabetes, Risk Factor for Obesity, Risk Factor for Hypertension, Risk Factor for Sedentary Lifestyle and Risk Factor for Depression and Moderate Risk: Risk Factor for Obesity For Smoking Smoking Risk Guidelines For Dyslipidemia Dyslipidemia Risk Guidelines For Diabetes Mellitus Diabetes Risk Guidelines For Obesity/Overweight Obesity/Overweight Risk Guidelines For Hypertension Hypertension Risk Guidelines For Sedentary Lifestyle Sedentary Lifestyle Risk Guidelines For Depression Depression Risk Guidelines Motivation Motivation to Participate On a scale of 1 to 10, how prepared are you to commit to attending program?: 6 What do you see as barriers to successfully being able to complete the program?: physical therapy all my life and have never noticed a change What do you see as the benefits of succesfully completing the program? In other words, what do you hope to get out of participating in the program?: helped with the breathing Are there issues you are dealing with that will interfere with completing the program?: back pain ( chronic) Do you have a spouse or signficant other, family or friends who will help support you to complete the program?: yes
[2023-08-22 14:27] VITALS: BP 136/88; O2SAT 98; BMI 27.7
[2023-08-22 14:38] VITALS: BP 136/88; PULSE 71; RESP 12; TEMP 37; O2SAT 98; BMI 27.7
== END ==
PROVIDERS: PCP Family Medicine
DX: Z00.00 Encounter for general adult medical examination without abnormal findings (principal)

== ENCOUNTER 2025-11-12 15:25 | Emergency (ER) | payer MEDICARE, SELFPAY ==
[2023-08-22 14:27] VITALS: BMI 27.7
[2025-11-12 15:26] VITALS: BP 139/96; PULSE 68; RESP 18; TEMP 37; O2SAT 99
--- NOTE | 2025-11-12 17:17 | EX.ED.DYSGE1 ---
HPI History of Present Illness Chief Complaint: Abn Labs [facility] Medical History Basal cell carcinoma (BCC) Cardiac murmur CKD (chronic kidney disease) stage 3, GFR 30-59 ml/min Essential hypertension Hypothyroidism IBS (irritable bowel syndrome) Malignant melanoma Mixed hyperlipidemia Home Medications ?Medication ?Instructions ?Recorded ?Last Taken ?Type cholecalciferol (vitamin D3) 50 2,000 unit PO DAILY 02/13/20 11/11/25 History mcg (2,000 unit) capsule diltiazem HCl 120 mg 120 mg PO BID 02/13/20 11/12/25 History capsule,extended release 24 hr levothyroxine 75 mcg tablet 75 mcg PO SUMOTUWETHFR 02/13/20 11/12/25 History atorvastatin 10 mg tablet 10 mg PO DAILY 06/24/21 11/11/25 History labetalol 100 mg tablet 100 mg PO DAILY 06/24/21 11/12/25 History losartan 100 mg tablet 100 mg PO DAILY 06/24/21 11/12/25 History sertraline 25 mg tablet 25 mg PO DAILY 06/24/21 11/11/25 History albuterol sulfate 2.5 mg/3 mL 2.5 mg continuous nebulization Q4H 11/12/25 11/11/25 History (0.083 %) solution for nebulization PRN PRN dyspnea budesonide-formoterol 2 inh inhalation BID 11/12/25 Unknown History diltiazem HCl 120 mg capsule,24 120 mg PO BID 11/12/25 Unknown History hr,extended release immun glob G(IgG)-gly-IgA ov50 IV 11/12/25 11/05/25 History levothyroxine 75 mcg tablet 37.5 mcg PO SA 11/12/25 11/09/25 History (Euthyrox) multivitamin (Daily Multi-Vitamin 1 tab PO DAILY 11/12/25 11/11/25 History tablet) Allergy/AdvReac Type Severity Reaction Status Date / Time ciprofloxacin (From Cipro) Allergy Other Verified 11/12/25 17:55 Iodinated Contrast Media Allergy PT UNSURE Verified 11/12/25 17:55 (iodine contrast) OF REACTION Penicillins Allergy Rash Verified 11/12/25 17:55 Sulfa (Sulfonamide Allergy Anaphylaxis Verified 11/12/25 17:55 Antibiotics) Opioids - Morphine Analogues AdvReac Vomiting Verified 11/12/25 17:55 Family History Mother CAD (coronary artery disease) Myocardial infarction CVA (cerebral vascular accident) Surgical History History of arthroscopy of right knee History of lumbar spinal fusion History of lumbosacral spine surgery Social History Smoking Status: Former smoker alcohol intake: current details: occasional substance use type: does not use caffeine: Yes Type: tea Number of servings: 1 EXAM Physical Exam Const Vital Signs: 11/12/25 15:26 11/12/25 17:26 11/12/25 19:00 Temperature 98.6 F Temperature Source Oral Pulse Rate 68 66 69 Respiratory Rate 18 18 18 Blood Pressure 139/96 H 179/93 H 172/88 H Blood Pressure Mean 110 121 116 Pulse Ox 99 95 93 Oxygen Delivery Method Room Air Room Air Room Air MDM [facility] MDM Narrative Medical decision making narrative: HISTORY OF PRESENT ILLNESS: Chief complaint: Elevated D-dimer 85-year-old female presents with abnormal labs. History of hyperlipidemia, hypertension, CKD. Notes right calf pain that is sharp and admitted for last couple days. Notes she had outpatient D-dimer that was elevated. She is into the ED for further evaluation. REVIEW OF SYSTEMS: Pertinent positives: Calf pain, abnormal Pertinent negatives: [] PHYSICAL EXAM: Nursing triage notes reviewed, Vital signs reviewed Constitutional: please see mdm HENT: MMM Eyes: Pupils equal round and reactive to light, Extraocular muscles intact Neck: No stridor, no JVD, full neck ROM Lungs: Clear to auscultation, No wheezing or rales. No increased work of breathing, no conversational dyspnea, no accessory muscle use, no nasal flaring. No respiratory distress noted Heart: Regular rate and rhythm, No murmurs, No rubs and No gallops, 2+ distal pulses (radial, femoral, posterior tibial) in all extremities Abdomen: Soft, there is no tenderness, rigidity, rebound or guarding, no obvious peritoneal signs, no palpable pulsatile abdominal masses, no auscultated abdominal bruit : No CVAT Extremities: [] Neuro: No new focal neurological deficits, cranial nerves II through XII intact, 5/5 strength in all present extremities. Intact sensation to light touch in all present extremities, 2+ reflexes bilateral patella tendons. Skin: No rash or lesions noted MEDICAL DECISION MAKING: Chief Complaint: please see HPI External records reviewed: Reviewed the patient's prior lab testing. Reviewed outpatient visit from 11/12/2025. During this visit the patient endorsed dyspnea and chest pain. D-dimer was 1200 with a age-adjusted cutoff of 850 Factors affecting care: As per HPI Social determinants of health: Denies illicit drug use History obtained from others: PCP Consults: none [facility] Narrative: Patient was initially hemodynamically stable, afebrile and nontoxic-appearing. Exam without stigmata of VTE I considered the following differential diagnosis: VTE (PE/DVT), ACS, arrhythmia, anemia, electro service, pneumonia I obtained a broad lab and imaging work to further determine if the patient was suffering from a life-threatening etiology. ALL IMAGES (IF OBTAINED) HAVE BEEN PERSONALLY REVIEWED AND INTERPRETED BY MYSELF. EKG with normal sinus rhythm rate of 68, normal axis, normals, no STEMI, no sign of right heart strain CT of the chest negative for PE Duplex ultrasound negative for acute DVT High-sensitivity troponin is negative, no evidence of myocardial ischemia CBC without leukocytosis, severe anemia, no thrombocytopenia. BMP without evidence of significant electrolyte abnormalities, no anion gap, no acute kidney injury. The synthesis of the patient's history, physical exam, labs images suggest no acute life or limb during etiology. Specifically no sign of VTE to explain her elevated D-dimer. Discussed prior PCP follow-up. Discussed tricked return precautions The patient and/or family, caregivers express understanding. The patient and/or family, caregivers agrees with the plan. Shared decision making: I will have a discussion with the patient and or visitors regarding risk/benefits of further testing or admission. They will be made aware of of the risk/benefits inherent in this decision they will be given the opportunity to voice understanding. Total critical care time today provided was at least 0 minutes. This excludes separately billable procedures. Critical care time (if documented) is secondary to the patient having high probability of clinically significant/life threatening deterioration in the patient's condition which required my urgent intervention. Impression: 1. Encounter for evaluation of abnormal laboratory finding 2. Elevated D-dimer 3. Leg pain 4. Chronic dyspnea Dispo: Discharge home This note was generated with [employer] dictation software. It may contain incorrect words, spelling, and punctuation that were not noted in review of the chart prior to signing. Lab Data Labs: Laboratory Results - last 24 hr 11/12/25 11/12/25 17:40 19:49 WBC 6.6 RBC 4.75 Hgb 14.0 Hct 42.1 MCV 88.6 MCH 29.5 MCHC 33.3 RDW Std Deviation 43.0 RDW Coeff of Bisi 13.2 Plt Count 193 MPV 10.5 Immature Gran % (Auto) 0.200 Neut % (Auto) 37.4 L Lymph % (Auto) 50.9 H Clayton % (Auto) 8.5 Eos % (Auto) 2.4 Baso % (Auto) 0.6 Absolute Neuts (auto) 2.5 Absolute Lymphs (auto) 3.36 Nucleated RBC % 0 Sodium 142 Potassium 3.9 Chloride 105 Carbon Dioxide 25.4 Anion Gap 12 BUN 20 H Creatinine 1.18 Est GFR (MDRD) Non-Af 45 L BUN/Creatinine Ratio 17.2 Glucose 93 Calcium 10.3 Troponin T High Sens 16 H Troponin T Hi Sens 2 Hr 12 Radiography Diagnostic Testing: Clinical Impression(s) from Imaging Studies Chest CTA 11/12/25 17:32 IMPRESSION: No pulmonary embolism. No acute chest abnormality. Reading Location: [facility] Venous Duplex 11/12/25 17:34 IMPRESSION: No deep venous thrombosis. Reading Location: [facility] Discharge Plan Triage Chief Complaint: Abn Labs ED Provider: Jacinto Grissom Dx/Rx/DC Orders Prescriptions: No Action levothyroxine 75 MCG tablet 75 mcg PO SUMOTUWETHFR diltiazem HCl 120 MG capsule,extended release 24hr 120 mg PO BID cholecalciferol (vitamin D3) 2,000 UNIT capsule 2,000 unit PO DAILY albuterol sulfate 2.5 mg /3 mL (0.083 %) solution for nebulization 2.5 mg continuous nebulization Q4H PRN PRN (Reason: dyspnea) diltiazem HCl 120 mg capsule,extended release 24 hr 120 mg PO BID levothyroxine [Euthyrox] 75 mcg tablet 37.5 mcg PO SA immun glob G(IgG)-gly-IgA ov50 [Gammagard Liquid] IV multivitamin [Daily Multi-Vitamin] Tablet 1 tab PO DAILY budesonide-formoterol [Symbicort] 2 inh inhalation BID Rx Instructions: rinse mouth after use sertraline 25 mg tablet 25 mg PO DAILY atorvastatin 10 mg tablet 10 mg PO DAILY labetalol 100 mg tablet 100 mg PO DAILY losartan 100 mg tablet 100 mg PO DAILY Primary Care Provider: Herminio Wise Referrals: Herminio Wise MD [Primary Care Provider, Medical] Print Language: Citizen [place]
[2025-11-12 17:26] VITALS: BP 179/93; PULSE 66; RESP 18; O2SAT 95
--- NOTE | 2025-11-12 17:32 | CT_ITS ---
PROCEDURE: CTA CHEST W/WO CONTRAST 11/12/2025 REASON FOR EXAM: CHEST PAIN, ELEVATED D-DIMER, RULE OUT PE TECHNIQUE: Procedure Code: [id number] Modality: CT Procedure: CTA CHEST W/WO CONTRAST Multiplanar Sagittal and Coronal images were obtained. CONTRAST: Isovue 370 VOLUME: 100 mL One or more dose reduction techniques were used (e.g., Automated exposure control, adjustment of the mA and/or kV according to patient size, use of iterative reconstruction technique). RADIATION DOSE SUMMARY: CTDlvol: 7+ 9 mGy DLP: 123 mGycm FINDINGS: The peripheral soft tissues unremarkable. Degenerative changes of the spine. Normal caliber esophagus. The upper abdomen is unremarkable. Mild atherosclerosis. Normal caliber thoracic aorta. Coronary artery calcifications are present. No mediastinal lymphadenopathy. No pulmonary artery filling defects. Left lower lobe calcified granuloma. CT/CTA Chest W/WO Contrast IMPRESSION: No pulmonary embolism. No acute chest abnormality. [facility]
--- NOTE | 2025-11-12 17:32 | EKG12_ITS ---
Test Reason : ABNORMAL LABS Blood Pressure : */* mmHG Vent. Rate : 68 BPM Atrial Rate : 68 BPM P-R Int : 178 ms QRS Dur : 90 ms QT Int : 392 ms P-R-T Axes : 63 33 54 degrees QTcB Int : 416 ms Normal sinus rhythm Normal ECG Confirmed by Doug Laird ([id number]), food expeditor JI COKER ([id number]) on 11/13/2025 10:27:27 AM Referred By: VARGHESE Confirmed By: Doug Laird
--- NOTE | 2025-11-12 17:34 | US_ITS ---
PROCEDURE: VENOUS DUPLEX IMAG/LIMITED/UNI 11/12/2025 REASON FOR EXAM: F 85 y/o TECHNIQUE: Procedure Code: USVDUL Modality: US Procedure: VENOUS DUPLEX IMAG/LIMITED/UNI FINDINGS: There is no intraluminal echogenicity to suggest the presence of a deep venous thrombosis. Appropriate respiratory variation, augmentation and venous compression is noted. US/Venous Duplex Imag/Limited/Uni IMPRESSION: No deep venous thrombosis. [facility]
[2025-11-12 17:54] LABS: Hematocrit 42.1 % (37-47); Hemoglobin 14.0 g/dL (12.0-15.0); Immature Granulocytes Count 0.010 X10^3/uL (0.0-0.0); Mean Corp Hgb Conc 33.3 g/dL (32-36); Mean Corpuscular Volume 88.6 fL (81-99); Mean Platelet Vol. 10.5 fl (6.2-12.0); NRBC Flagged by Analyzer 0 % (0-5); Platelet Count 193 K/mm3 (150-450); RBC Distribution Width CV 13.2 % (11.6-14.6); RBC Distribution Width SD 43.0 fl (35.1-43.9); Red Blood Count 4.75 M/mm3 (4.2-5.4); White Blood Count 6.6 K/mm3 (4.4-11.0)
[2025-11-12] MEDS: DiphenhydrAMINE 50 MG/ML Syringe 25 MG IV (18:08)
[2025-11-12 18:12] LABS: Anion Gap 12 (5-15); BUN 20 mg/dL (4-19); BUN/Creat Ratio 17.2 RATIO (10-20); Calcium,Total 10.3 mg/dL (7.6-11.0); Carbon Dioxide 25.4 mmol/L (21.0-32.0); Chloride 105 mmol/L (98-108); Glucose 93 mg/dL (70-99); Potassium 3.9 mmol/L (3.3-5.1); Troponin T High Sensitivity 16 ng/L (<=14)
[2025-11-12 19:00] VITALS: BP 172/88; PULSE 69; RESP 18; O2SAT 93
[2025-11-12 20:08] LABS: Troponin T High Sens 2 HR 12 ng/L (<=14)
--- OUTSIDE RECORDS SUMMARY | 2025-11-12 20:46 | XMS RPT_ITS | CCD ---
Author Organization [facility] Care Team Providers Care Commercial Driver'S License Driver Name Role Phone Nai Alegre Unavailable Nai Alegre Primary Care Provider Queenie Villanueva Unavailable Unavailable Nai Alegre MD Primary Care Provider KAREN GONCALVES Attending Unavailable KAREN GONCALVES Referring Unavailable HERMINIO WHITMAN Primary Care Unavailable KAREN GONCALVES Attending Unavailable KAREN GONCALVES Referring Unavailable HERMINIO WHITMAN Primary Care Unavailable Herminio Whitman MD Primary Care Provider [phone] Herminio Whitman MD Primary Care Provider Herminio Whitman MD Primary Care Provider [phone] Herminio Whitman MD Primary Care Provider Herminio Whitman MD Primary Care Provider [phone] Herminio Whitman Primary Care Provider [phone] Jeimy Quezada Attending Provider [phone] Herminio Whitman Primary Care Unavailable Isaiah Fernandez Referring Unavailable Jeimy Quezada Attending Unavailable Herminio Whitman Primary Care Unavailable Isaiah Fernandez Attending Unavailable JEIMY HORTON Referring Unavailable Herminio Whitman Primary Care Unavailable JEIMY HORTON Attending Unavailable JEIMY HORTON Attending Unavailable JEIMY HORTON Referring Unavailable Herminio Whitman Primary Care Unavailable J Carlos, Herminio Primary Care Unavailable Isaiah Fernandez Attending Unavailable Isaiah Fernandez Referring Unavailable JIM RENTERIA Attending Unavailabl JIM Walker Referring Unavailabl e J CARLOS, HERMINIO Danielle Primary Care Unavailable JIM RENTERIA Attending Unavailabl e KANDERJIM Referring Unavailabl e J CARLOS, HERMINIO Danielle Primary Care Unavailable JIM RENTERIA Attending Unavailabl e JIM RENTERIA Referring Unavailabl e J CARLOS, HERMINIO Danielle Primary Care Unavailable JIM RENTERIA Referring Unavailabl e KANDER, JIM KHANNA Attending Unavailabl e J CARLOS, HERMINIO J Primary Care Unavailable Jcarlos Herminio HENDRICKS Primary Care Provider MARICEL KENNEDY Referring Unavailable J CARLOS, HERMINIO Danielle Primary Care Unavailable Maricel Kennedy Unavailable [phone] Karen Goncalves MD Unavailable Haagen ROBOTICS TECHNICIAN.DATA ANALYSIS INTERN, Edith Unavailable Suppan ROBOTICS TECHNICIAN.DATA ANALYSIS INTERN, Maricel A Unavailable [phone] KAREN GONCALVES Referring Unavailable KAREN GONCALVES Attending Unavailable J CARLOS, HERMINIO Danielle Primary Care Unavailable Suppan ROBOTICS TECHNICIAN.LESLEY, Maricel A Unavailable KAREN GONCALVES Attending Unavailable J CARLOS, HERMINIO Danielle Primary Care Unavailable J CARLOS, HERMINIO Danielle Primary Care Unavailable KAREN GONCALVES Attending Unavailable J CARLOS, HERMINIO Danielle Primary Care Unavailable KAERN GONCALVES Attending Unavailable J CARLOS, HERMINIO Danielle Primary Care Unavailable HERMINIO WHITMAN Attending Unavailable NATHALY JENKINS Attending Unavailable J CARLOS, HERMINIO Danielle Primary Care Unavailable MARICEL KENNEDY Attending Unavailable J CARLOS, HERMINIO Danielle Primary Care Unavailable J CARLOS, HERMINIO Danielle Referring Unavailable J CARLOS, HERMINIO Danielle Primary Care Unavailable J CARLOS, HERMINIO Danielle Primary Care Unavailable J CARLOSHERMINIO Cervantes Attending Unavailable J CARLOS, HERMINIO Danielle Primary Care Unavailable J CARLOS, HERMINIO Danielle Referring Unavailable J CARLOS, HERMINIO Danielle Primary Care Unavailable J CARLOS, HERMINIO Danielle Referring Unavailable ESPERANZA PERRIN Attending Unavailable J CARLOS, HERMINIO Danielle Primary Care Unavailable NATHALY JENKINS Attending Unavailable J CARLOS, HERMINIO Danielle Primary Care Unavailable NATHALY JENKINS Referring Unavailable J CARLOS, HERMINIO Danielle Primary Care Unavailable Allergies Allergy Classification Reported Allergen(s) Allergy Type Date of Onset Reaction(s) Facility Macrolides (antibiotic) (1 source) Erythromycin Drug Allergy 4 Vomiting [facility] Work Phone: Opioid Agonists (1 source) traMADol Drug Allergy 7 Vomiting [facility] Penicillins (antibiotic) (1 source) Penicillin G Drug Allergy 3 Other: See Comments [facility] Quinolones (antibiotic) (2 sources) Ciprofloxacin Drug Allergy 1 Contraindicati on[facility] Work Phone: Tetracyclines (antibiotic) (1 source) Tetracycline Drug Allergy 4 Vomiting [facility] (19 sources) Penicillins; Translations: [PENICILLINS] Propensity to adverse reactions to drug 7 Rash, Swelling [facility] Work Phone: (20 sources) Sulfonamides (Antibiotic); Translations: [SULFA (SULFONAMIDE ANTIBIOTICS)] Propensity to adverse reactions to drug 7 Anaphylaxis [facility] Work Phone: (20 sources) OPIOIDS - MORPHINE ANALOGUES; Translations: [OPIOIDS - MORPHINE ANALOGUES] Propensity to adverse reactions to drug 7 GI Intolerance [facility] Work Phone: (20 sources) Erythromycin; Translations: [ERYTHROMYCIN] Drug Allergy 4 GI Intolerance, Vomiting [facility] (20 sources) Tetracycline; Translations: [TETRACYCLINE] Drug Allergy 4 GI Intolerance, Vomiting [facility] (20 sources) Morphinan opioid Propensity to adverse reactions to drug 7 GI Intolerance, GI Upset [facility] (1 source) Penicillins Propensity to adverse reactions to drug 7 Swelling, Rash [facility] (20 sources) Sulfonamides (Antibiotic) Propensity to adverse reactions to drug 7 Anaphylaxis [facility] (20 sources) Ciprofloxacin; Translations: [CIPROFLOXACIN HCL] Drug Allergy 2 Other (See Comments) [facility] (13 sources) Penicillins Propensity to adverse reactions to drug 7 Swelling, Rash [facility] (20 sources) Ciprofloxacin; Translations: [CIPROFLOXACIN] Drug Allergy 1 Contraindicati on-Medical [facility] Work Phone: (20 sources) levoFLOXacin; Translations: [LEVOFLOXACIN] Drug Allergy 1 Contraindicati on[facility]Medical [facility] Work Phone: (20 sources) Penicillin G; Translations: [PENICILLIN G] Drug Allergy 3 Other: See Comments, Rash [facility] Work Phone: (20 sources) traMADol; Translations: [TRAMADOL] Drug Allergy 7 Vomiting [facility] Work Phone: (20 sources) opioids [Other] Propensity to adverse reactions 7 Vomiting [facility] Work Phone: (20 sources) sulpha drugs [Other] Propensity to adverse reactions 7 Anaphylaxis [facility] Work Phone: (1 source) Ciprofloxacin Drug Allergy 3 [facility] (1 source) Penicillins Drug allergy (disorder) 3 [facility] (1 source) Sulfonamides (Antibiotic) Drug allergy (disorder) 3 [facility] (1 source) Opioids - Morphine Analogues Drug allergy (disorder) 3 [facility] (1 source) OTHER; Translations: [OTHER] Propensity to adverse reactions (disorder) 7 [facility] (3 sources) Penicillins Propensity to adverse reactions to drug 7 Swelling, Rash [facility] Medications Current Medications Medication Drug Class(es) Dates Sig (Normalized) Sig (Original) acetaminophen 325 mg oral tablet (20 sources) Start: 12-01-2017 End: 12-01-2017 take 1 tablet by mouth every four hours acetaminophen (TYLENOL) tablet 650 mg 650 mg, Oral, Every 4 hours while awake, First dose on Tue11/30/17 at 1900 Given 11/30/2017 21:25 EST 650 mg Start: 12-01-2017 End: 12-31-2017 take 2 tablets by mouth every six hours acetaminophen (TYLENOL) 325 MG tablet Take 2 (two) tablets (650 mg total) by mouth every 6 (six) hours Take for 5 days, then as needed. Taking this medication can help decrease your need for opioid pain medications and their side effects.. 80 tablet 0 12/01/2017 12/31/2017 Active Start: 11-30-2017 End: 11-30-2017 acetaminophen (TYLENOL) tabl et 975 mg 975 mg, Oral, Once, Tue11/30/17 at 1130, For 1 dose, Pre-Procedure Given 11/30/2017 11:09 EST 975 mg take 2 tablets by mo ut every eight hours as needed acetaminophen (TYLENOL) 500 mg tablet Take 1,000 mg by mouth three times daily as needed. Active End: 12-09-2019 take 2 tablets by mouth every eight hours as needed acetaminophen (TYLENOL) 500 MG tablet Take 1,000 mg by mouth every 8 (eight) hours as needed for pain . 0 12/09/2019 Discontinued (Stop Taking at Discharge) End: 12-01-2017 take 1 tablet by mouth every six hours acetaminophen (TYLENOL) 500 MG tablet Take 500 mg by mouth every 6 (six) hours as needed for pain. 12/01/2017 Discontinued Comment on above: Take 1,000 mg by blu three times daily as needed. albuterol 0.83 mg/ml inhalation solution (20 sources) beta2-Adrenergic Agonist Start: 01-10-2025 End: 02-13-2025 albuterol (PROVENTIL) 2.5 mg /3 mL (0.083 %) nebulizer solution Indications: Bronchiectasis without complication (HCC) USE 1 VIAL IN NEBULIZER AT LEAST TWICE DAILY, USE 1 TREATMENT EVERY 4 HOURS NEEDED FOR SHORTNESS OF BREATH/COUGH. ICD10 is J47.9. RUN THIS THROUGH MEDICARE PART B. . 180 mL 02/13/2025 Active Start: 05-10-2024 End: 01-10-2025 albuterol (PROVENTIL) 2.5 mg /3 mL (0.083 %) nebulizer solution Indications: Bronchiectasis without complication (HCC) Do one breathing treatment every 4 hours as needed for cough or shortness of breath. ICD 10 is J47.9 . 180 mL 11 05/10/2024 01/10/2025 Discontinued Start: 11-01-2023 End: 05-10-2024 albuterol (PROVENTIL) 2.5 mg /3 mL (0.083 %) nebulizer solution Indications: Bronchiectasis without complication (HCC) Do one breathing treatment at least twice daily. Do one breathing treatment every 4 hours as needed for cough or shortness of breath. Give 60 vials, 11 refills. ICD 10 is J47.9 . 180 mL 11 11/01/2023 05/10/2024 Discontinued (Reorder (Suppress CancelRx Message to Pharmacy)) Start: 10-04-2022 albuterol (PRO VENTIL) 2.5 mg /3 mL (0.083 %) nebulizer solution Indications: Bronchiectasis without complication (HCC) Do one breathing treatment at least twice daily. Do one breathing treatment every 4 hours as needed for cough or shortness of breath. Give 60 vials, 11 refills. ICD 10 is J47.9 . 180 mL 11 10/04/2022 Active Start: 06-04-2022 albuterol (PRO VENTIL) 2.5 mg /3 mL (0.083 %) nebulizer solution Use 3 mL via nebulizer as needed for wheezing/shortness of breath. 06/04/2022 Active Start: 06-04-2022 albuterol (PRO VENTIL) 2.5 mg /3 mL (0.083 %) nebulizer solution Use 3 mL via nebulizer once daily. 0 06/04/2022 Active Start: 06-04-2022 End: 10-04-2022 albuterol (PROVENTIL) 2.5 mg /3 mL (0.083 %) nebulizer solution Indications: Bronchiectasis without complication (HCC) Take 3 mL (2.5 mg total) by nebulization every 6 (six) hours as needed for wheezing or shortness of breath (or cough) . 90 mL 11 06/04/2022 10/04/2022 Discontinued (Reorder (Suppress CancelRx Message to Pharmacy)) Comment on above: Use 3 mL via nebuliz er once daily. aspirin 81 mg delayed release oral tablet (13 sources) Nonsteroidal Anti-inflammatory Drug Start: 02-13-2020 End: 06-24-2021 take 81 mg by mouth once daily Aspirin Active 81 MG PO DAILY June 24, 2021 5:44pm Start: 12-21-2019 End: 01-20-2020 take 1 tablet by mouth once daily in the evening aspirin 81 MG EC tablet Take 1 (one) tablet (81 mg total) by mouth every evening DO NOT RESUME UNTIL 12/21/19/ Start: 12/21/19. 30 tablet 0 12/21/2019 01/20/2020 Active Start: 12-01-2017 End: 12-31-2017 take 1 tablet by mouth twice daily aspirin (ECOTRIN) 325 MG EC tablet Take 1 (one) tablet (325 mg total) by mouth 2 (two) times a day Take for 30 days to prevent blood clots. 60 tablet 0 12/01/2017 12/31/2017 Active End: 12-08-2019 take 1 tablet by mouth once daily in the evening aspirin 81 MG EC tablet Take 81 mg by mouth every evening . 0 12/08/2019 Discontinued (Reorder) atorvastatin 10 mg oral tablet (20 sources) HMG-CoA Reductase Inhibitor Start: 02-13-2020 End: 08-09-2024 take 1 tablet by mouth once daily atorvastatin (LIPITOR) 10 mg tablet Take 1 tablet by mouth once daily. 90 tablet 3 08/09/2024 Active Start: 12-07-2019 End: 12-09-2019 take 10 mg by mouth once daily 10 mg, Oral, Nightly, F irst dose on Tue12/07/19 at 2100 Start: 11-30-2017 End: 12-01-2017 take 1 tablet by mouth once atorvastatin (LIPITOR) tab let 10 mg 10 mg, Oral, Nightly, First dose on Tue11/30/17 at 2100 Given 11/30/2017 21:26 EST 10 mg Comment on above: Take 1 tablet by blu once daily. busPIRone hydrochloride 5 mg oral tablet (5 sources) Start: 4 End: 4 take 0.5 tablet by mouth twice daily as needed busPIRone (BUSPAR) 5 mg tablet Indications: Anxiety with depression Take 0.5 tablets by mouth two times a day as needed. 30 tablet 2 05/21/2024 08/19/2024 Active cholecalciferol 0.05 mg oral capsule (20 sources) Vitamin D Start: 0 Cholecalciferol, Vitamin D3, 50 mcg (2,000 unit) cap Take 1 capsule by mouth. 02/13/2020 Active Start: 11-30-2017 End: 12-01-2017 take 1 tablet by mouth once daily cholecalciferol (vitamin D3) tablet 1,000 Units 1,000 Units, Oral, Daily, First dose on Tue11/30/17 at 2100 Given 11/30/2017 21:26 EST 1,000 Units take 1 capsule by mo [facility] once daily in the evening cholecalciferol, vitamin D3, 2,000 unit cap Take 1 (one) capsule by mouth every evening . Active Comment on above: Take 1 capsule by [facility]. 24 hr dilTIAZem hydrochloride 120 mg extended release oral capsule (20 sources) Calcium Channel Kortney Start: 08-03-2023 End: 08-09-2024 take 1 capsule by mouth twice daily dilTIAZem CD (CARDIZEM CD, CARTIA XT) 120 mg 24 hr capsule Take 1 capsule by mouth two times a day. 180 capsule 3 08/09/2024 Active Start: 02-13-2020 End: 07-31-2023 take 1 capsule by mouth twice daily dilTIAZem CD (CARDIZEM CD, CARTIA XT) 120 mg 24 hr capsule Take 1 capsule by mouth twice daily. 180 capsule 3 07/23/2022 07/31/2023 Discontinued Start: 12-07-2019 End: 12-09-2019 take 120 mg by mouth twice daily 120 mg, Oral, 2 times daily, First dose on Tue12/07/19 at 2100 Hold for SBP<110 o rHR<55. DO NOT CRUSH OR CHEW. Start: 11-30-2017 End: 12-01-2017 diltiazem (CARDIZEM) tablet 120 mg 120 mg, Oral, 2 times daily, First dose on Tue11/30/17 at 2100, Do Not Crush or Chew if administering orally due to bitter taste. May be crushed if given via tube. Given 11/30/2017 21:26 EST 120 mg take 1 tablet by [facility] twice daily diltiazem (CARDIZEM) 120 MG tablet Take 120 mg by mouth 2 (two) times a day. 0 Active Comment on above: Take 1 capsule by [facility] twice daily. docusate sodium 50 mg / sennosides, half-way 8.6 mg oral tablet (6 sources) Start: 12-07-2019 End: 01-08-2020 take 2 tablets by mouth twice daily senna-docusate (SENNA-S) 8.6-50 mg Take 2 (two) tablets by mouth 2 (two) times a day . 120 tablet 0 12/09/2019 01/08/2020 Active Start: 12-01-2017 End: 12-31-2017 take 1 tablet by mouth twice daily senna-docusate (SENNA-S) 8.6-50 mg Take 1 (one) tablet by mouth 2 (two) times a day Take to help prevent constipation. 60 tablet 0 12/01/2017 12/31/2017 Active Start: 11-30-2017 End: 12-01-2017 senna-docusate (SENNA-S) 8.6 -50 mg per tablet 1 tablet 1 tablet, Oral, 2 times daily, First dose on Tue11/30/17 at 2100, NOT for abdominal surgery patients. Hold for loose stools. Do Not Crush or Chew if administering orally due to bitter taste. May be crushed if given via tube. Given 11/30/2017 21:26 EST 1 tablet doxycycline hyclate 100 mg oral capsule (9 sources) Tetracycline-class Drug Start: 11-27-2024 End: 12-11-2024 take 1 capsule by mouth once daily doxycycline hyclate (VIBRAMYCIN) 100 mg capsule Indications: Acute bronchitis with chronic obstructive pulmonary disease (COPD) (HCC) (HCC) Take 1 capsule (100 mg) by mouth once daily for 14 days. 14 capsule 11/27/2024 12/11/2024 Active Start: 06-11-2023 End: 06-18-2023 take 1 tablet by mouth twice daily doxycycline monohydrate 100 mg tablet Indications: Skin infection Take 1 tablet by mouth twice daily for 7 days. 14 tablet 0 06/11/2023 06/18/2023 Active Start: 10-09-2022 End: 05-12-2023 take 100 mg by mouth twice daily Doxycycline Monohydrate Active 100 MG PO TWICE A DAY October 09, 2022 1:00am Start: 03-04-2022 End: 10-04-2022 take 1 capsule by mouth twice daily doxycycline hyclate (VIBRAMYCIN) 100 MG capsule Indications: Bronchiectasis without complication (HCC) Take 1 (one) capsule (100 mg total) by mouth 2 (two) times a day . 20 capsule 0 03/04/2022 10/04/2022 Discontinued Comment on above: Take 1 capsule by mo [facility] twice daily for 7 days. Take 1 tablet by blu twice daily for 7 days. fluticasone propionate 0.05 mg/actuat metered dose nasal spray (13 sources) Corticosteroid Start: 10-04-20 End: 10-04-20 take 2 spray(s) nasal route once daily fluticasone propionate (FLONASE) 50 mcg/actuation nasal spray Indications: Nasal congestion Instill 2 (two) sprays into each nostril daily . 16 g 11 10/04/2022 Active 120 actuat fluticasone propionate 0.115 mg/actuat / salmeterol 0.021 mg/actuat metered dose inhaler (13 sources) Corticosteroid, beta2-Adrenergic Agonist Start: 09-03-20 End: 12-04-19 take 1 puff(s) by mouth twice daily Advair HFA 115-21 mcg/actuation inhaler Indications: Bronchiectasis without complication (HCC) Inhale 1 (one) puff 2 (two) times a day Rinse mouth after each use . 36 g 4 09/03/2025 12/04/2026 Active Start: 10-31-2024 End: 09-03-2025 take 2 puff(s) by mouth twice daily fluticasone propion-salmeteroL (Advair HFA) 115-21 mcg/actuation inhaler Indications: Bronchiectasis without complication (HCC) Inhale 2 (two) puffs 2 (two) times a day Rinse mouth after each use . 36 g 3 10/31/2024 09/03/2025 Discontinued take 2 puff(s) by in halation twice daily ADVAIR HFA 115-21 mcg/actuation inhaler Inhale 2 Puffs as instructed two times a day. Active ibuprofen 200 mg oral tablet (2 sources) Nonsteroidal Anti-inflammatory Drug Start: 12-01-2017 End: 12-29-2017 take 2 tablets by mouth three times daily ibuprofen (ADVIL,MOTRIN) 200 MG tablet Take 2 (two) tablets (400 mg total) by mouth 3 (three) times a day. 168 tablet 0 12/01/2017 12/29/2017 Active End: 12-01-2017 take 2 tablets by mouth every six hours ibuprofen (ADVIL,MOTRIN) 200 MG tablet Take 400 mg by mouth every 6 (six) hours as needed for pain. 12/01/2017 Discontinued immun glob G,IgG,/gly/IgA ov 50 (GAMMAGARD LIQUID INJECTION) (20 sources) immun glob G,IgG ,/gly/IgA ov50 (GAMMAGARD LIQUID INJECTION) by INJECTION(UNSPECIFIED PARENTERAL ROUTES) route. Infusion every 4 wks Active immun glob G,IgG ,/gly/IgA ov50 (GAMMAGARD LIQUID INJECTION) by INJECTION(UNSPECIFIED PARENTERAL ROUTES) route. Infusion every 4 wks 0 Active Comment on above: by INJECTION(UNSPECI FIED PARENTERAL ROUTES) route. Infusion every 4 wks influenza virus vaccine (1 source) take 0.5 mL by intramuscular injection once FLU VACC [id number],65YR UP,/PF (FLUZONE HIGH-DOSE , PF, IM) Inject 0.5 mL into the shoulder, thigh, or buttocks once 09/05/17 . Active inhalational spacing device inhaler (4 sources) Start : 06-27 End: 06-26 inhalational spacing device inhaler Indications: Bronchiectasis without complication (HCC) Use as instructed . 1 each 2 06/27/2023 06/26/2024 Active labetalol hydrochloride 100 mg oral tablet (20 sources) beta-Adrenergic Kortney Start : 02-12 End: 08-09 take 1 tablet by mouth once daily labetalol (TRANDATE) 100 mg tablet Indications: Essential hypertension, benign Take 1 tablet by mouth once daily. 90 tablet 3 08/09/2024 08/09/2025 Active Start: 12-01-2017 End: 12-01-2017 take 1 tablet by mouth once daily labetalol (NORMODYNE) tablet 100 mg 100 mg, Oral, Daily, First dose on Mis 12/01/17 at 0900 Given 12/01/2017 08:01 EST 100 mg Comment on above: Take 1 tablet by lbu th once daily. losartan potassium 100 mg oral tablet (20 sources) Angiotensin 2 Receptor Kortney Start: 02-13-2020 End: 08-09-2025 take 1 tablet by mouth once daily losartan (COZAAR) 100 mg tablet Indications: Essential hypertension, benign Take 1 tablet by mouth once daily. 90 tablet 3 08/09/2024 08/09/2025 Active Start: 12-07-2019 End: 12-09-2019 take 100 mg by mouth once daily at lunch 100 mg, Oral, Daily with lunch, First dose on Tue12/07/19 at 1200 Hold for SBP <100 Start: 11-30-2017 End: 12-01-2017 take 1 tablet by mouth once daily at lunch losartan (COZAAR) tablet 100 mg 100 mg, Oral, Daily with lunch, First dose on Tue11/30/17 at 2100 Given 11/30/2017 21:26 EST 100 mg Comment on above: Take 1 tablet by blu th once daily. methylPREDNISolone (4 sources) Corticosteroid Start: 11-27-2024 End: 12-03-2024 methylPREDNISolone (MEDROL, RADHIKA,) 4 mg Dose-Pack Indications: Acute bronchitis with chronic obstructive pulmonary disease (COPD) (HCC) (HCC) Follow dosing instructions, take with food. 21 tablet 11/27/2024 12/03/2024 Active Start: 06-01-2023 End: 06-07-2023 methylPREDNISolone (MEDROL D OSEPACK) 4 mg tablet Indications: Bronchiectasis without complication (HCC) Follow package directions . 21 tablet 0 06/01/2023 06/07/2023 Active Start: 06-04-2022 End: 06-10-2022 methylPREDNISolone (MEDROL D OSEPACK) 4 mg tablet Indications: Bronchiectasis without complication (HCC) Follow package directions . 21 tablet 0 06/04/2022 06/10/2022 Start: 06-04-2022 End: 06-10-2022 methylPREDNISolone (MEDROL D OSEPACK) 4 mg tablet Indications: Bronchiectasis without complication (HCC) Follow package directions . 21 tablet 0 06/04/2022 06/10/2022 Active MUCUS CLEARING DEVICE MISC (16 sources) MUCUS CLEARING D EVICE MISC by Miscellaneous route Order sent to [facility] 01/25/22 . Active MUCUS CLEARING D EVICE MISC by Miscellaneous route Order sent to [facility] 01/25/22 . 0 Active nebulizer accessories Kit (6 sources) Start: 05-10-2024 nebulizer acce ssories Kit Indications: Bronchiectasis without complication (HCC) Use as directed . 2 kit 05/10/2024 Active Start: 05-10-2024 nebulizer acce ssories Kit Indications: Bronchiectasis without complication (HCC) Use as directed . 2 kit 0 05/10/2024 Active pantoprazole 40 mg delayed release oral tablet (2 sources) Proton Pump Inhibitor Start: 12-01-2017 End: 12-31-2017 take 1 tablet by mouth once daily in the morning pantoprazole (PROTONIX) 40 MG tablet Take 1 (one) tablet (40 mg total) by mouth every morning Take this to prevent stomach ulcers and bleeding. 30 tablet 0 12/01/2017 12/31/2017 Active polyethylene glycol [id number] [id number] mg powder for oral solution (2 sources) Osmotic Laxative Start: 12-08-2019 End: 12-16-2019 polyethylene glycol (MIRALAX) 17 gram powder Take 17 (seventeen) g by mouth daily for 7 days . 7 packet 0 12/09/2019 12/16/2019 Active predniSONE 10 mg oral tablet (1 source) Start: 11-26-2022 End: 12-01-2022 take 1 tablet by mouth once daily predniSONE (DELTASONE) 10 mg tablet Take 1 tablet by mouth once daily for 5 days. 5 tablet 0 11/26/2022 12/01/2022 Active Comment on above: Take 1 tablet by blu th once daily for 5 days. sertraline 50 mg oral tablet (20 sources) Serotonin Reuptake Inhibitor Start: 03-15-2025 End: 03-15-2026 take 1 tablet by mouth once daily at bedtime sertraline (ZOLOFT) 50 mg tablet Indications: Depression Take 1 tablet by mouth daily at bedtime. 90 tablet 3 03/15/2025 03/15/2026 Active Start: 02-13-2020 End: 03-15-2025 take 1 tablet by mouth once daily at bedtime sertraline (ZOLOFT) 25 mg tablet Indications: Depression Take 1 tablet by mouth daily at bedtime. 90 tablet 3 08/09/2024 03/15/2025 Discontinued Start: 01-12-2019 End: 10-17-2023 take 1 tablet by mouth once daily in the morning sertraline (ZOLOFT) 50 MG tablet Take 1 (one) tablet (50 mg total) by mouth every morning . 0 01/12/2019 10/17/2023 Discontinued (Reorder (Suppress CancelRx Message to Pharmacy)) Start: 01-12-2019 sertraline (ZO LOFT) 50 MG tablet Take 25 mg by mouth nightly . 0 01/12/2019 Active Start: 11-30-2017 End: 12-01-2017 take 1 tablet by mouth once sertraline (ZOLOFT) tablet 37.5 mg 37.5 mg, Oral, Nightly, First dose on Tue11/30/17 at 2100 Given 11/30/2017 21:26 EST 37.5 mg End: 09-26-2019 take 1.5 tablets by mouth once daily at bedtime sertraline (ZOLOFT) 25 MG tablet Take 37.5 mg by mouth nightly Pt takes 1.5 pills daily at hs . 0 09/26/2019 Discontinued take 37.5 mg by mouth once sertr afshan (ZOLOFT) 25 MG tablet Take 37.5 mg by mouth nightly Pt takes 1.5 pills daily at hs . Active Comment on above: Take 1 tablet by blu th once daily. Take 1 tablet by blu th daily at bedtime. therapeutic multivitamin (THERAGRAN) tablet (20 sources) take 1 tablet by mouth once daily in the evening therapeutic multivitamin (THERAGRAN) tablet Take 1 (one) tablet by mouth every evening . Active take 1 tablet by blu th once daily in the evening therapeutic multivitamin (THERAGRAN) tab let Take 1 (one) tablet by mouth every evening . 0 Active take 1 tablet by blu th once daily in the evening therapeutic multivitamin (THERAGRAN) tab let Take 1 tablet by mouth every evening . 0 Active levothyroxine sodium 0.075 mg oral tablet (20 sources) l-Thyroxine Start: 02-13-2020 End: 07-15-2025 levothyroxine (SYNTHROID) 75 mcg tablet Take 1 tablet by mouth once daily. Except 1 day a week take half a tablet. Take on empty stomach. For Thyroid 90 tablet 3 07/16/2025 Active Start: 12-08-2019 End: 12-09-2019 levothyroxine (SYNTHROID, LE VOTHROID) tablet 37.5 mcg Start: 12-07-2019 End: 12-09-2019 levothyroxine (SYNTHROID, LE VOTHROID) tablet 75 mcg Start: 12-01-2017 End: 12-01-2017 levothyroxine (SYNTHROID, LE VOTHROID) tablet 75 mcg 75 mcg, Oral, Daily, First dose on Mis 12/01/17 at 0600, For patients on continuous tube feed: Hold TF from 1 hr before until 1 hr after each dose. TF rate may need adjustment to meet caloric needs. Given 12/01/2017 05:35 EST 75 mcg take 1 tablet by blu th five times weekly levothyroxine (SYNTHROID, LEVOTHROID) 75 MCG tablet Take 1 (one) tablet (75 mcg total) by mouth 5 (five) times a week Tuesday through Tuesday . Active take 0.5 tablet by out two times weekly levothyroxine (SYNTHROID, LEVOTHROID) 75 MCG tablet Take 0.5 (one-half) tablet (37.5 mcg total) by mouth twice weekly on Tuesday and Tuesday . Active levothyroxine (S YNTHROID, LEVOTHROID) 75 MCG tablet Take 37.5 mcg by mouth twice weekly on Tuesday and Tuesday . 0 Active take 1 tablet by blu th once daily levothyroxine (SYNTHROID, LEVOTHROID) 75 MCG tablet Take 75 mcg by mouth once daily. 0 Active Comment on above: Take 1 tablet by blu once daily. Except 2 days a week take half a tablet. Take on empty stomach. For Thyroid Completed/Discontinued Medications Medication Drug Class(es) Dates Sig (Normalized) Sig (Original) acetaminophen 325 mg / HYDROcodone bitartrate 5 mg oral tablet (4 sources) Opioid Agonist Start: 12-23-2019 End: 12-09-2019 take 1 tablet by mouth every eight hours as needed for pain, then take 7 tablets by mouth as needed for pain HYDROcodone-acetami nophen (NORCO) 5-325 mg per tablet Indications: Acute postoperative pain Take 1 (one) tablet by mouth every 8 (eight) hours as needed for pain (Days supply per fill: 7) Start: 12/23/19. 27 tablet 0 12/23/2019 12/09/2019 Discontinued (Stop Taking at Discharge) Start: 12-16-2019 End: 12-09-2019 take 1 tablet by mouth every six hours as needed for pain, then take 7 tablets by mouth as needed for pain HYDROcodone-acetaminophen (NORCO) 5-325 mg per tablet Indications: Acute postoperative pain Take 1 (one) tablet by mouth every 6 (six) hours as needed for pain (Days supply per fill: 7) Start: 12/16/19. 28 tablet 0 12/16/2019 12/09/2019 Discontinued (Stop Taking at Discharge) Start: 12-09-2019 End: 12-09-2019 take 1 tablet by mouth once as needed, then take 2 tablets by mouth every six hours as needed, then take 7 tablets by mouth as needed HYDROcodone-acetaminophen (NORCO) 5-325 mg per tablet Indications: Acute postoperative pain Take 1 (one) tablet to 2 (two) tablets by mouth every 6 (six) hours as needed (Days supply per fill: 7) . 56 tablet 0 12/09/2019 12/09/2019 Discontinued (Stop Taking at Discharge) Start: 12-07-2019 End: 12-09-2019 take 1-2 tablets by mouth every four hours as needed 1-2 tablet, Oral, Every 4 hours PRN, moderate to severe pain, Starting 12/07/19 at 1038 [] for use after FINANCE ADMINISTRATOR is DC'D [] Initiate with 1 tablet oral every 4 hours prn moderate to severe pain. [] For unrelieved pain, may repeat one tablet oral dose within 60 minutes of initial dose. [] If pain is RELIEVED after repeat dose, change to two tablets of 5/325 mg oral every 4 hours prn moderate to severe pain. [] If pain is UNrelieved after repeat dose, or patient requires dose reduction, call physician. aluminum hydroxide 40 mg/ml / magnesium hydroxide 40 mg/ml / simethicone 4 mg/ml oral suspension (1 source) Start: 11-30-2017 End: 12-01-2017 take 30 mL by mouth every four hours aluminum-magnesium hydroxide-simethicone (MAALOX PLUS) 200-200-20 mg/5 mL suspension 30 mL 30 mL, Oral, Every 4 hours PRN, indigestion, Starting 11/30/17 at 1804 Given 12/01/2017 09:53 EST 30 mL azithromycin 250 mg oral tablet (7 sources) Macrolide Antimicrobial Start: 06-01-2023 End: 10-17-2023 take 2 tablets by mouth once daily azithromycin (ZITHROMAX) 250 MG tablet Indications: Bronchiectasis without complication (HCC) 2 tabs on day #1. Then, 1 tab orally daily for days #2 - #5 . 19.29 tablet 0 06/01/2023 10/17/2023 Discontinued (Patient's Request) Start: 06-04-2022 End: 10-04-2022 take 2 tablets by mouth once daily azithromycin (ZITHROMAX) 250 MG tablet Indications: Bronchiectasis without complication (HCC) 2 tabs on day #1. Then, 1 tab orally daily for days #2 - #5 . 6 tablet 0 06/04/2022 10/04/2022 Discontinued breath-actuated 120 actuat beclomethasone dipropionate 0.04 mg/actuat metered dose inhaler (5 sources) Corticosteroid Start: 08-17-2021 End: 02-21-2023 take 1 puff(s) by inhalation twice daily beclomethasone (QVAR REDIHALER) 40 mcg/actuation inhaler Indications: Asthma, unspecified asthma severity, unspecified whether complicated, unspecified whether persistent Inhale 1 Puff as instructed twice daily. 1 Each 5 08/17/2021 02/21/2023 Discontinued (Other) Comment on above: Inhale 1 Puff as ins tructed twice daily. benzonatate 100 mg oral capsule (4 sources) Non-narcotic Antitussive Start: 10-07-2022 End: 02-21-2023 take 1 capsule by mouth three times daily as needed benzonatate (TESSALON PERLES) 100 mg capsule Indications: Acute cough , URI, acute Take 1 capsule by mouth three times daily as needed. 30 capsule 0 10/07/2022 02/21/2023 Discontinued (Other) Start: 12-09-2019 End: 12-09-2019 benzonatate (TESSALON) capsu le 100 mg Comment on above: Take 1 capsule by mo [facility] three times daily as needed. bisacodyl 10 mg rectal suppository (1 source) Stimulant Laxative Start: 12-07-19 End: 12-09-19 take 10 mg rectal route once daily as needed for constipation 10 mg, Rectal, Daily PRN, constipation, Starting Tue12/07/19 at 1038 Try oral meds first. Re serve rectal route for when oral meds are ineffective, not tolerated, or not ordered. 60 actuat budesonide 0.08 mg/actuat / formoterol fumarate 0.0045 mg/actuat metered dose inhaler (20 sources) Corticosteroid, beta2-Adrenergic Agonist Start: 06-01-20 End: 03-15-20 25 SYMBICORT 80-4.5 mcg/actuation inhaler 06/15/2023 03/15/2025 Discontinued calcium carbonate 500 mg chewable tablet (1 source) Start: 12-08-19 End: 12-09-19 calcium carbonate (TUMS) chewable tablet 500 mg calcium chloride 0.0014 meq/ml / potassium chloride 0.004 meq/ml / sodium chloride 0.103 meq/ml / sodium lactate 0.028 meq/ml injectable solution (3 sources) Start: 12-07-19 End: 12-09-19 take 50 mL intravenous route every hour 50 mL/hr, Intravenous, Continuous, Starting Tue12/07/19 at 0915, PACU (only) Start: 12-07-2019 End: 12-07-2019 lactated Ringers infusion Start: 11-30-2017 End: 12-01-2017 take 25 mL intravenous route every hour lactated Ringers infusion 25 mL/hr, Intravenous, Continuous, Starting Tue11/30/17 at 1130 New Bag 11/30/2017 11:13 EST 25 mL/hr 25 mL/hr 50 ml clindamycin 18 mg/ml injection (2 sources) Lincosamide Antibacterial Start: 12-07-2019 End: 12-08-2019 take 900 mg intravenous route every eight hours 900 mg, Intravenous, at 100 mL/hr, Every 8 hours, First dose on Tue12/07/19 at 1500, For 2 doses Starting 8 hours after pre-procedure dose x 2 doses. Indication (POST PROCEDURE): Neurology Start: 11-30-2017 End: 12-01-2017 take 900 mg intravenous route every eight hours clindamycin (CLEOCIN) IVPB 900 mg (premix) 900 mg, Intravenous, at 100 mL/hr, Every 8 hours, First dose on Tue11/30/17 at 2200, For 2 doses, Starting 8 hours after pre-procedure dose x 2 doses. New Bag 11/30/2017 21:24 EST 900 mg 100 mL/hr cyclobenzaprine hydrochloride 10 mg oral tablet (7 sources) Muscle Relaxant Start: 12-09-2019 End: 10-04-2022 take 1 tablet by mouth three times daily as needed for muscle spasms cyclobenzaprine (FLEXERIL) 10 MG tablet Take 1 (one) tablet (10 mg total) by mouth 3 (three) times a day as needed for muscle spasms . 90 tablet 2 12/09/2019 10/04/2022 Discontinued 1 ml dexamethasone phosphate 4 mg/ml injection (2 sources) Corticosteroid Start: 12-01-2017 End: 12-01-2017 dexamethasone (DECADRON) injection 8 mg 8 mg, Intravenous, Daily, First dose on Mis 12/01/17 at 0600, For 2 doses Given 12/01/2017 05:36 EST 8 mg Start: 11-30-2017 End: 11-30-2017 dexamethasone (DECADRON) inj ection 10 mg 10 mg, Intravenous, Once, 11/30/17 at 1130, For 1 dose, Pre-Procedure Given 11/30/2017 11:10 EST 10 mg dicyclomine hydrochloride 10 mg oral capsule (1 source) Anticholinergic Start: 12-09-2019 End: 12-09-2019 dicyclomine (BENTYL) capsule 10 mg 0.3 ml enoxaparin sodium 100 mg/ml prefilled syringe (1 source) Low Molecular Weight Heparin Start: 12-01-2017 End: 12-01-2017 take 30 mg by subcutaneous injection once daily enoxaparin (LOVENOX) syringe 30 mg 30 mg, Subcutaneous, Daily, First dose on Mis 12/01/17 at 0800, Administer in abdomen unless otherwise directed by prescriber. Notify physician if patient refuses. Given 12/01/2017 08:01 EST 30 mg 20 ml fentaNYL 0.05 mg/ml injection (2 sources) Opioid Agonist Start: 12-07-2019 End: 12-07-2019 fentaNYL (SUBLIMAZE) 50 mcg/mL injection - ADS Override Pull Start: 12-07-2019 End: 12-07-2019 25 mcg, Intravenous, Every 5 min PRN, moderate to severe pain, Starting Tue12/07/19 at 0829, For 4 doses, PACU (only) [] Do not give more than 100 mcg while in PACU. guaiFENesin 20 mg/ml oral solution (15 sources) Start: 03-01-2022 End: 10-17-2023 take 10 mL by mouth every six hours as needed for cough Adult Tussin Chest Congestion 100 mg/5 mL syrup TAKE 10 ML BY MOUTH EVERY 6 HOURS NEEDED FOR COUGH 0 03/01/2022 10/17/2023 Discontinued (Patient's Request) Start: 07-31-2021 End: 02-21-2023 take 10 mL by mouth every six hours as needed for cough guaiFENesin (ROBITUSSIN) 100 mg/5 mL syrup Indications: Acute bronchitis Take 10 mL by mouth every 6 hours as needed for cough. 236 mL 2 07/31/2021 02/21/2023 Discontinued Comment on above: Take 10 mL by mouth every 6 hours as needed for cough. 0.5 ml HYDROmorphone hydrochloride 1 mg/ml prefilled syringe (1 source) Opioid Agonist Start: End: take 0.5-1.5 mg intravenous route every three hours as needed 0.5-1.5 mg, Intravenous, Every 3 hours PRN, moderate to severe pain, Starting Tue12/07/19 at 1038 [] for use after FINANCE ADMINISTRATOR is DC'D [] Initiate with 1 mg every 3 hours prn moderate to severe pain. [] For unrelieved pain, may give additional 0.5 mg within 30 minutes of initial dose. [] If pain is RELIEVED after repeat dose, change to 1.5 mg every 3 hours prn moderate to severe pain. [] If pain is UNrelieved after repeat dose or patient requires dose reduction, call physician. FOR USE WHEN FINANCE ADMINISTRATOR IS DC'D [] May use IV for breakthrough or if unable to tolerate oral route. HYDROmorphone in 0.9 % NaCl (DILAUDID) 15 mg/30 mL (0.5 mg/mL) FINANCE ADMINISTRATOR (1 source) Start: End: Intravenous, Continuous, Starting Tue12/07/19 at 0945, PACU to Post Procedure Use Port-Free Tubing in Non-Procedural Areas. levoFLOXacin 750 mg oral tablet (2 sources) Quinolone Antimicrobial Start: End: take 750 mg by mouth once daily Levofloxacin Discontinued 750 MG PO DAILY February 13, 2020 12:00am June 24, 2021 5:45pm 10 ml lidocaine hydrochloride 10 mg/ml injection (1 source) Antiarrhythmic, Amide Local Anesthetic Start: End: lidocaine 1% (XYLOCAINE) 10 mg/mL (1 %) injection 0.2 mL 0.2 mL, Intradermal, Once, 11/30/17 at 1130, For 1 dose, Pre-Procedure, Around site prior to IV insertion. Given 11/30/2017 11:13 EST 0.2 mL Start: 11-30-2017 End: 11-30-2017 lidocaine 1% (XYLOCAINE) 10 mg/mL (1 %) injection 0.2 mL 0.2 mL, Intradermal, Once, 11/30/17 at 1130, For 1 dose, Pre-Procedure, Around site prior to IV insertion. Given 11/30/2017 11:13 EST 0.2 mL magnesium hydroxide 80 mg/ml oral suspension (1 source) Start: 12-07-2019 End: 12-09-2019 take 2400 mg by mouth once daily as needed for constipation 2,400 mg (30 mL), Oral, Daily PRN, constipation, constipation, Starting Tue12/07/19 at 1038 2 ml midazolam 1 mg/ml injection (2 sources) Benzodiazepine Start: 12-07-2019 End: 12-07-2019 1 mg, Intravenous, Once, Tue12/07/19 at 0730, For 1 dose, Pre-Procedure Start: 11-30-2017 End: 11-30-2017 midazolam (VERSED) injection 2 mg 2 mg, Intravenous, Once, Tue11/30/17 at 1130, For 1 dose, Pre-Procedure, Pre-procedure for nerve block. May repeat in 5 minutes x 1 if sedation inadequate to perform block. Given 11/30/2017 12:25 EST 2 mg Multivitamin preparation (2 sources) Start: 02-13-2020 End: 06-24-2021 Multivitamin Discontinued February 13, 2020 12:00am June 24, 2021 5:45pm ondansetron 4 mg disintegrating oral tablet (5 sources) Serotonin-3 Receptor Antagonist Start: 02-13-2020 End: 06-24-2021 take 4 mg by mouth every eight hours as needed Ondansetron Discontinued 4 MG PO EVERY 8 HOURS NEEDED February 13, 2020 12:00am June 24, 2021 5:45pm Start: 12-07-2019 End: 12-07-2019 4 mg, Intravenous, Every 15 min PRN, nausea, vomiting, Starting Tue12/07/19 at 0829, For 2 doses, PACU (only) Do not give more than 2 doses. Administer first as needed for nausea/vomiting, or as directed by anesthesia Start: 11-30-2017 End: 11-30-2017 ondansetron (ZOFRAN) injecti on 4 mg 4 mg, Intravenous, Every 15 min PRN, nausea, vomiting, Starting Tue11/30/17 at 1648, For 2 doses, PACU (only), Do not give more than 2 doses. Administer first as needed for nausea/vomiting, or as directed by anesthesia Given 11/30/2017 17:10 EST 4 mg Start: 11-30-2017 End: 11-30-2017 ondansetron (ZOFRAN) injecti on 4 mg 4 mg, Intravenous, Once, Tue11/30/17 at 1130, For 1 dose, Pre-Procedure Given 11/30/2017 11:10 EST 4 mg oxyCODONE hydrochloride 5 mg oral tablet (7 sources) Opioid Agonist Start: 12-01-2017 End: 09-26-2019 oxyCODONE (ROXICODONE) 5 MG immediate release tablet Indications: Primary localized osteoarthrosis of right lower leg 1-2 tablets every 4-6 hours as needed for pain. 80 tablet 0 12/01/2017 09/26/2019 Discontinued 1000 ml potassium chloride 0.02 meq/ml / sodium chloride 9 mg/ml injection (1 source) Start: 12-07-2019 End: 12-09-2019 take 75 mL intravenous route every hour 75 mL/hr, Intravenous, Continuous, Starting Tue12/07/19 at 1130 pregabalin 75 mg oral capsule (1 source) Start: 12-01-2017 End: 12-01-2017 take 1 capsule by mouth once daily pregabalin (LYRICA) capsule 75 mg 75 mg, Oral, Daily, First dose on Tue11/30/17 at 1900 Given 12/01/2017 08:01 EST 75 mg 2 ml prochlorperazine 5 mg/ml injection (1 source) Phenothiazine Start: 12-07-2019 End: 12-09-2019 take 5 mg intravenous route every six hours as needed prochlorperazine (COMPAZINE) injection 5 mg Ropivacaine (Pf) 100 Mg/20 Ml (5 Mg/Ml) 0.5 % Injection Syringe (1 source) Amide Local Anesthetic Start: 11-30-2017 End: 11-30-2017 ropivacaine (PF) 100 mg/20 mL (5 mg/mL) 0.5 % Syrg 40 mL 40 mL, Infiltration, Once, 11/30/17 at 1130, For 1 dose, Pre-Procedure, [] for anesthesia block administration Given 11/30/2017 12:26 EST 35 mL 72 hr scopolamine 0.0139 mg/hr transdermal system (1 source) Anticholinergic Start: 12-07-2019 End: 12-09-2019 scopolamine (TRANSDERM-SCOP) 1 mg over 3 days patch 1 patch 1000 ml sodium chloride 9 mg/ml injection (1 source) Start: 12-01-2017 End: 12-01-2017 take 100 mL intravenous route every hour sodium chloride 0.9% (NS) 100 mL/hr, Intravenous, Continuous, Starting 11/30/17 at 1900 Rate/Dose Verify 11/30/2017 21:54 EST 100 mL/hr 100 mL/hr traMADol hydrochloride 50 mg oral tablet (14 sources) Opioid Agonist Start: 12-09-2019 End: 10-17-2023 traMADol (ULTRAM) 50 mg tablet Indications: Acute postoperative pain Take 1 (one) tablet (50 mg total) by mouth every 6 (six) hours as needed for pain (Days supply per fill: 5) . 15 tablet 0 12/09/2019 10/17/2023 Discontinued (Patient's Request) Problems Active Problems Problem Classification Problem Date Documented Da te Episodic/Chronic Adjustment disorders (1 source) Adjustment disorder; Translations: [Adjustment disorder with other symptoms] Chronic Anxiety disorders (3 sources) Mixed anxiety and depressive disorder; Translations: [Other specified anxiety disorders] Chronic Asthma (2 sources) Asthma; Translations: [Unspecified asthma, uncomplicated] Onset: 3 08-02-2023 Chronic Chronic kidney disease (20 sources) Chronic kidney disease stage 3; Translations: [Stage 3 chronic kidney disease] Onset: 8 07-13-2018 Chronic Chronic kidney disease (2 sources) Chronic kidney disease; Translations: [Stage 3a chronic kidney disease (HCC)] Onset: 8 Chronic obstructive pulmonary disease and bronchiectasis (20 sources) Bronchiectasis; Translations: [Bronchiectasis, uncomplicated] Onset: 0 Chronic Chronic obstructive pulmonary disease and bronchiectasis (1 source) Bronchitis; Translations: [Bronchitis, not specified as acute or chronic] 01-12-2022 Episodic Coronary atherosclerosis and other heart disease (20 sources) Coronary arteriosclerosis in [place] artery; Translations: [Coronary atherosclerosis] Onset: 8 11-30-2017 Chronic Disorders of lipid metabolism (20 sources) Hyperlipidemia; Translations: [Hyperlipidemia, unspecified] Onset: 8 Resolved: 2 11-30-2017 Chronic Essential hypertension (20 sources) Essential hypertension; Translations: [Essential (primary) hypertension] Onset: 3 11-30-2017 Chronic Headache; including migraine (3 sources) Headache; Translations: [Headache, unspecified headache type] 03-15-2025 Episodic Headache; including migraine (1 source) Headache; including migraine; Translations: [Headache, unspecified headache type] Onset: 5 Heart valve disorders (2 sources) Heart murmur; Translations: [Cardiac murmur, unspecified] 06-25-2021 Episodic Hypertension with complications and secondary hypertension (20 sources) Chronic kidney disease due to hypertension; Translations: [Hypertensive chronic kidney disease with stage 1 through stage 4 chronic kidney disease, or unspecified chronic kidney disease] Onset: 0 Resolved: 3 03-23-2021 Chronic Immunity disorders (20 sources) Immunoglobulin deficiency; 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, unspecified] Onset: 4 Chronic Immunizations and screening for infectious disease (2 sources) Needs influenza immunization; Translations: [Encounter for immunization] Onset: 5 10-10-2023 Episodic Malaise and fatigue (6 sources) Fatigue; Translations: [Other fatigue] Onset: 5 Episodic Mood disorders (7 sources) Depressive disorder; Translations: [Depression] Onset: 5 06-24-2023 Chronic Mood disorders (1 source) Mood disorders; Translations: [Depression, unspecified depression type] Onset: 5 Neoplasms of unspecified nature or uncertain behavior (5 sources) Neoplastic disease of uncertain behavior; Translations: [Neoplasm of uncertain behavior, unspecified] Onset: 4 04-24-2024 Episodic Nonspecific chest pain (1 source) Chest discomfort; Translations: [Other chest pain] 08-23-2022 Episodic Osteoarthritis (20 sources) Localized, primary osteoarthritis; Translations: [Unilateral primary osteoarthritis, unspecified knee] Onset: 8 12-01-2017 Chronic Osteoporosis (20 sources) Osteoporosis; Translations: [Age-related osteoporosis without current pathological fracture] Onset: 8 11-30-2017 Chronic Other acquired deformities (1 source) Other biomechanical lesions of lumbar region; Translations: [Foraminal stenosis of lumbar region] Episodic Other acquired deformities (1 source) Spondylolisthesis, lumbar region; Translations: [Spondylolisthesis, lumbar region] Episodic Other acquired deformities (2 sources) Lumbar spondylolisthesis; Translations: [Spondylolisthesis, lumbar region] Other connective tissue disease (1 source) Pain in right arm; Translations: [Right arm pain] Onset: 5 Episodic Other ear and sense organ disorders (1 source) Otalgia, left ear; Translations: [Otalgia, unspecified] Episodic Other gastrointestinal disorders (20 sources) Irritable bowel syndrome; Translations: [Irritable bowel syndrome without diarrhea] 08-14-2013 Chronic Other gastrointestinal disorders (1 source) Mixed irritable bowel syndrome; 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] Onset: 3 Chronic Other hereditary and degenerative nervous system conditions (1 source) Essential tremor; Translations: [Essential tremor] 03-05-2024 Chronic Other lower respiratory disease (1 source) Cough; Translations: [Acute cough] Episodic Other lower respiratory disease (9 sources) Dyspnea on exertion; Translations: [Other forms of dyspnea] 06-01-2023 Episodic Other lower respiratory disease (2 sources) Shortness of breath; Translations: [Shortness of breath] Onset: 3 Episodic Other lower respiratory disease (3 sources) Chronic cough; Translations: [Chronic cough] 05-10-2024 Episodic Other lower respiratory disease (4 sources) Other forms of dyspnea; Translations: [Other forms of dyspnea] Onset: 5 Episodic Other nervous system disorders (20 sources) Plantar nerve lesion; Translations: [Lesion of plantar nerve, unspecified lower limb] Onset: 7 04-25-2007 Chronic Other nervous system disorders (2 sources) Paresthesia; Translations: [Paresthesia of skin] 05-04-2021 Episodic Other non-traumatic joint disorders (1 source) Pain in right shoulder; Translations: [Acute pain of right shoulder] Onset: 5 Episodic Other non-traumatic joint disorders (1 source) Stiffness of unspecified joint, not elsewhere classified; Translations: [Limited joint range of motion (ROM)] Onset: 5 Episodic Other screening for suspected conditions (not mental disorders or infectious disease) (2 sources) D-dimer above reference range; Translations: [Other specified abnormal findings of blood chemistry] 06-11-2023 Episodic Other skin disorders (3 sources) Skin lesion; Translations: [Disorder of the skin and subcutaneous tissue, unspecified] Episodic Other skin disorders (1 source) Mass of subcutaneous tissue of abdominal wall; Translations: [Localized swelling, mass and lump, trunk] 05-15-2024 Episodic Other upper respiratory disease (1 source) Nasal congestion; Translations: [Nasal congestion] Episodic Other upper respiratory infections (2 sources) Acute upper respiratory infection; Translations: [Acute upper respiratory infection, unspecified] Episodic Phlebitis; thrombophlebitis and thromboembolism (3 sources) Phlebitis; Translations: [Phlebitis and thrombophlebitis of other sites] 06-11-2023 Episodic Residual codes; unclassified (2 sources) History of operative procedure on lumbar spinal structure; Translations: [History of lumbar fusion] Episodic Screening and history of mental health and substance abuse codes (2 sources) Encounter for screening for depression; Translations: [Encounter for screening examination for other mental health and behavioral disorders] Onset: 5 Episodic Skin and subcutaneous tissue infections (1 source) Infection of skin; Translations: [Local infection of the skin and subcutaneous tissue, unspecified] 06-11-2023 Episodic Spondylosis; intervertebral disc disorders; other back problems (1 source) Stenosis of lumbar vertebral foramen; Translations: [Lumbar foraminal stenosis] Thyroid disorders (20 sources) Hypothyroidism; Translations: [Hypothyroidism, unspecified] Onset: 5 Resolved: 0 11-30-2017 Chronic Unclassified (2 sources) Preprocedural examination done; Translations: [Pre-op examination] Unclassified (1 source) History of lumbar fusion; Translations: [History of lumbar fusion] Past or Other Problems Problem Classification Problem Date Documented Date Episodic/Chronic Acute bronchitis (3 sources) Acute bronchitis; Translations: [Acute bronchitis, unspecified] Onset: 11-27-2024 10-17-2022 Episodic Administrative/social admission (20 sources) Patient encounter status; Translations: [Other specified counseling] Onset: 02-18-2022 02-18-2022 Episodic Allergic reactions (20 sources) Radiation-induced dermatosis; Translations: [Other skin changes due to chronic exposure to nonionizing radiation] Onset: 11-09-2007 Resolved: 02-01-2014 02-01-2014 Episodic Melanomas of skin (20 sources) History of malignant melanoma of the skin; Translations: [Personal history of malignant melanoma of skin] Onset: 11-09-2007 11-09-2007 Episodic Open wounds of extremities (1 source) Unspecified open wound of left forearm, initial encounter; Translations: [Unspecified open wound of left forearm, initial encounter] Onset: 06-15-2023 Episodic Other acquired deformities (1 source) Stenosis of intervertebral foramina; Translations: [Foraminal stenosis of lumbar region] Episodic Other and unspecified benign neoplasm (20 sources) Benign neoplasm of skin of face; Translations: [Other benign neoplasm of skin of unspecified part of face] Onset: 10-14-2003 Resolved: 02-01-2014 02-01-2014 Episodic Other connective tissue disease (20 sources) Synovitis and tenosynovitis; Translations: [Synovitis and tenosynovitis, unspecified] Onset: 08-22-2007 Resolved: 03-05-2024 08-22-2007 Episodic Other connective tissue disease (20 sources) Rotator cuff impingement syndrome; Translations: [Impingement syndrome of unspecified shoulder] Onset: 02-28-2014 02-28-2014 Episodic Other connective tissue disease (20 sources) History of lumbar fusion; Translations: [Arthrodesis status] Onset: 12-07-2019 12-20-2019 Episodic Other connective tissue disease (1 source) Pain in left arm; Translations: [Pain in left arm] Onset: 06-16-2023 Episodic Other lower respiratory disease (20 sources) Multiple nodules of lung; Translations: [Other nonspecific abnormal finding of lung field] Onset: 07-11-2020 Episodic Other lower respiratory disease (9 sources) Dyspnea; Translations: [Shortness of breath] Onset: 10-17-2023 10-10-2023 Episodic Other lower respiratory disease (1 source) Other nonspecific abnormal finding of lung field; Translations: [Lung nodules] Onset: 07-11-2020 Episodic Other nervous system disorders (1 source) Acute postoperative pain; Translations: [Acute postoperative pain] Episodic Other non-epithelial cancer of skin (20 sources) Malignant neoplasm of skin of face; Translations: [Unspecified malignant neoplasm of skin of other parts of face] Onset: 09-08-2009 08-21-2021 Episodic Other non-traumatic joint disorders (20 sources) Pain in left shoulder; Translations: [Pain in joint, shoulder region] Onset: 02-28-2014 Resolved: 08-21-2021 08-21-2021 Episodic Other skin disorders (20 sources) Actinic keratosis; Translations: [Actinic keratosis] Onset: 11-09-2007 Resolved: 03-05-2024 11-09-2007 Episodic Other skin disorders (20 sources) Disorder of skin pigmentation; Translations: [Disorder of pigmentation, unspecified] Onset: 11-09-2007 11-09-2007 Episodic Other skin disorders (20 sources) Scar conditions and fibrosis of skin; Translations: [Scar conditions and fibrosis of skin] Onset: 11-09-2007 Resolved: 02-01-2014 02-01-2014 Episodic Other skin disorders (20 sources) Inflamed seborrheic keratosis; Translations: [Inflamed seborrheic keratosis] Onset: 12-05-2008 Resolved: 02-01-2014 02-01-2014 Episodic Other skin disorders (1 source) Actinic keratosis; Translations: [Actinic keratosis] Onset: 03-21-2025 Episodic Other skin disorders (1 source) Disorder of the skin and subcutaneous tissue, unspecified; Translations: [Skin lesion] Onset: 03-15-2025 Episodic Residual codes; unclassified (20 sources) History of operative procedure on lumbosacral spinal structure; Translations: [Other specified postprocedural states] Onset: 12-07-2019 12-20-2019 Episodic Spondylosis; intervertebral disc disorders; other back problems (20 sources) Spinal stenosis of lumbar region; Translations: [Spinal stenosis, lumbar region without neurogenic claudication] Onset: 12-07-2019 12-07-2019 Episodic Results Test Name Value Interpretation Reference Range Facility OV 10-03-2025 CNOV Office Visit (FAMPWS ) JAYASHREE FERGUSON ([id number]) 1940 F Date Time Provider Department 10/03/25 12:40 PM [facility] During your visit today, we recorded the following information about you: Pulse Respiration Blood pressure Weight 76/minute 14/minute 118/64 67.1 kg Nathaly Jenkins APRN.DATA ANALYSIS INTERN 10/03/2025 3:02 PM Signed This is a 85 year old female who presents today with: Right shoulder pain Nurse triage note today: Pt reports she has been having right shoulder pain for a while. Has seen provider's for this, prescribed prednisone which helped but it keeps returning. Reports she has limited ROM and when lifting arm half way it triggers the pain. If she holds the arm close to her side it does not hurt. Reports the pain is from the right elbow to the right shoulder, but mostly the shoulder. Has had xrays done. Reports the right shoulder was better when she saw Dr. Whitman on 09/17/25. Scheduled same day appt with Charito Jenkins. No same day openings in pcp triad today. HISTORY OF PRESENT ILLNESS: Jayashree is a patient of Dr Montelongo who was seen by this provider end of July, about 2 weeks after she tripped going up steps and braced herself with her right arm. Xray did show some degenerative changes, but no acute injuries. Jayashree had relief from a prednisone taper but feels it slowly starting to become more painful again and has significantly decreased ROM, stating she couldn't even open her car door the other day. Weakness and decreased ROM in front of her and to the side, and is unable to do posterior movements. Pain is anterior shoulder mostly but she gets tricep pain down back of the arm as well with certain movements. Has not had good effectiveness in the past with PT, would prefer referall to contract law specialist and if able, an MRI to assess for rotator cuff injury PAST MEDICAL HISTORY: PAST MEDICAL HISTORY Diagnosis Date BCC (basal cell carcinoma) 08/26/09 face Depression 09/17/2025 Essential hypertension, benign Foraminal stenosis of lumbar region 1997 MRI History of lumbosacral spine surgery 12/07/2019 1. L5-S1 posterolateral arthrodesis. 2. L5-S1 laminectomy, medial facetectomy, bilateral foraminotomy. 3. 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 1997 Unspecified hypothyroidism Hypothyroidism PAST SURGICAL HISTORY Procedure Laterality Date ANESTHESIA EYELID RECONSTRUCTIVE PROCEDURE ARTHROSCOPY KNEE DIAGNOSTIC W/WO SYNOVIAL BX SPX Right Arthroscopy, knee LAMINECTOMY W/O FFD 11/29 VERT SEG LUMBAR 2000 Laminectomy, lumbar fusion x2 SKIN BX, 1 LESION Melanoma ressection TOTAL KNEE REPLACEMENT Right Orthopeadic One [place] ALLERGIES Erythromycin, Opioids - Morphine Analogues, Sulfa (Sulfonamide Antibiotics), Ciprofloxacin, Levaquin [Levofloxacin], Penicillin G, Tetracycline, and Tramadol MEDICATIONS Current Outpatient Medications Medication Sig dilTIAZem CD (CARDIZEM CD, CARTIA XT) 120 mg 24 hr capsule Take 1 capsule by mouth two times a day. sertraline (ZOLOFT) 25 mg tablet Take 1 tablet by mouth daily at bedtime. losartan (COZAAR) 100 mg tablet Take 1 tablet by mouth once daily. labetalol (TRANDATE) 100 mg tablet Take 1 tablet by mouth once daily. levothyroxine (SYNTHROID) 75 mcg tablet Take 1 tablet by mouth once daily. Except 1 day a week take half a tablet. Take on empty stomach. For Thyroid ADVAIR HFA 115-21 mcg/actuation inhaler Inhale 2 Puffs as instructed two times a day. atorvastatin (LIPITOR) 10 mg tablet Take 1 tablet by mouth once daily. Cholecalciferol, Vitamin D3, 50 mcg (2,000 unit) cap Take 1 capsule by mouth. albuterol (PROVENTIL) 2.5 mg /3 mL (0.083 %) nebulizer solution Use 3 mL via nebulizer as needed for wheezing/shortness of breath. immun glob G,IgG,/gly/IgA ov50 (GAMMAGARD LIQUID INJECTION) by INJECTION(UNSPECIFIED PARENTERAL ROUTES) route. Infusion every 4 wks acetaminophen (TYLENOL) 500 mg tablet Take 1,000 mg by mouth three times daily as needed. No current facility-administered medications for this visit. FAMILY HISTORY Problem Relation Age of Onset Hypertension Mother Heart Mother Stroke Mother Cancer Father brain No Known Problems Brother Rheumatologic disease Daughter Rh arthritis. SOCIAL HISTORY[1] REVIEW OF SYSTEMS See HPI EXAM: BP 118/64 (BP Site: Left Arm, BP Position: Sitting, BP Cuff Size: Regular Adult) Pulse 7 (more content not included)... Normal [facility] 10-03-2025 CNPN Telephone (KANNANWS) JAYASHREE FERGUSON ([id number]) 1940 F Date Time Provider Department 10/03/25 [facility] During your visit today, we recorded the following information about you: Charito Lam RN 10/03/2025 10:45 AM Signed Pt reports she has been having right shoulder pain for a while. Has seen provider's for this, prescribed prednisone which helped but it keeps returning. Reports she has limited ROM and when lifting arm half way it triggers the pain. If she holds the arm close to her side it does not hurt. Reports the pain is from the right elbow to the right shoulder, but mostly the shoulder. Has had xrays done. Reports the right shoulder was better when she saw Dr. Whitman on 09/17/25. Scheduled same day appt with Charito Jenkins. No same day openings in pcp triad today. Allergies As of Date: 10/03/2025 Noted Allergy Reaction ERYTHROMYCIN 02/13/2014 11 - Vomiting OPIOIDS - MORPHINE ANALOGUES 11/25/2017 8 - GI Upset Comments: Vomiting. Stomach spasms. SULFA (SULFONAMIDE ANTIBIOTICS) 05/21/2024 10 - Anaphylaxis CIPROFLOXACIN 07/24/2021 15 - Contraindication-Medic al [facility]* Comments: Tendon rupture with Cipro LEVAQUIN (LEVOFLOXACIN) 07/24/2021 15 - Contraindication-Medic al [facility]* Comments: Tendon rupture PENICILLIN G 10/07/2003 2 - Rash Comments: Childhood dose. Rash elbows and knees, swelling TETRACYCLINE 02/13/2014 11 - Vomiting TRAMADOL 10/04/2017 11 - Vomiting Date Reviewed: 09/17/2025 Reviewed by: Herminio Whitman MD - Fully Assessed Reason for Visit: Right shoulder pain [Other] Prescriptions as of 10/03/2025 - dilTIAZem CD (CARDIZEM CD, CARTIA XT) 120 mg 24 hr capsule Take 1 capsule by mouth two times a day. - sertraline (ZOLOFT) 25 mg tablet Take 1 tablet by mouth daily at bedtime. - losartan (COZAAR) 100 mg tablet Take 1 tablet by mouth once daily. - labetalol (TRANDATE) 100 mg tablet Take 1 tablet by mouth once daily. - levothyroxine (SYNTHROID) 75 mcg tablet Take 1 tablet by mouth once daily. Except 1 day a week take half a tablet. Take on empty stomach. For Thyroid - ADVAIR HFA 115-21 mcg/actuation inhaler Inhale 2 Puffs as instructed two times a day. - atorvastatin (LIPITOR) 10 mg tablet Take 1 tablet by mouth once daily. - Cholecalciferol, Vitamin D3, 50 mcg (2,000 unit) cap Take 1 capsule by mouth. - albuterol (PROVENTIL) 2.5 mg /3 mL (0.083 %) nebulizer solution Use 3 mL via nebulizer as needed for wheezing/shortness of breath. - immun glob G,IgG,/gly/IgA ov50 (GAMMAGARD LIQUID INJECTION) by INJECTION(UNSPECIFIED PARENTERAL ROUTES) route. Infusion every 4 wks - acetaminophen (TYLENOL) 500 mg tablet Take 1,000 mg by mouth three times daily as needed. Problem List As Of Date 10/03/2025 Noted Resolved Benign neoplasm of skin of other and unspecifie*10/14/2003 02/01/2014 PLANTAR NERVE LESION [G57.60] 04/25/2007 Synovitis and tenosynovitis, unspecified [M65.9*08/22/2007 03/05/2024 Actinic keratosis [L57.0] 11/09/2007 03/05/2024 Other chronic dermatitis due to solar radiation*11/09/2007 02/01/2014 Scar condition and fibrosis of skin [L90.5] 11/09/2007 02/01/2014 H/O NOSE//PERS HX MALIG SKIN MELANOMA [Z85.820] 11/09/2007 SOLAR LENGINES///DYSCHROMIA OTHER [L81.9] 11/09/2007 Inflamed seborrheic keratosis [L82.0] 12/05/2008 02/01/2014 Contact dermatitis and other eczema, due to uns*12/05/2008 02/01/2014 Malignant neoplasm of skin of parts of face [C4*09/08/2009 Hypothyroidism [E03.9] Mixed hyperlipidemia [E78.2] 08/23/2022 Essential hypertension, benign [I10] IBS (irritable bowel syndrome) [K58.9] Rotator cuff impingement syndrome [M75.40] 02/28/2014 Left shoulder pain [M25.512] 02/28/2014 08/21/2021 Personal history of skin cancer [Z85.828] 05/30/2014 Acquired hypothyroidism [E03.9] 09/12/2015 08/22/2020 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] Stage 3a chronic kidney disease (HCC) [N18.31] 07/13/2018 History of lumbosacral spine surgery [Z98.890] 12/07/2019 S/P lumbar spinal arthrodesis, posterolateral [*12/07/2019 Lung nodules [R91.8] 07/11/2020 Bronchiectasis without complication (HCC) [J47.*07/11/2020 Hypertensive heart disease with stage 3 chronic*08/22/2020 08/22/2020 Hypertensive chronic kidney disease with stage *03/23/2021 10/10/2023 Advance care planning [Z71.89] 02/18/2022 Immunodeficiency (HCC) [D84.9] 09/12/2024 Depression [F32.A] 09/17/2025 Encounter Status:Closed by Charito LAM on 10/03/25 [facility] CNOVon 09-17-2025 CNOV Office Visit (FAMPWS ) JAYASHREE FERGUSON ([id number]) 1940 F Date Time Provider Department 09/17/25 3:00 PM [facility] During your visit today, we recorded the following information about you: Pulse Blood pressure Weight Height 71/minute 108/62 67.6 kg 1.53 m Herminio Whitman MD 09/17/2025 3:40 PM Signed Jayashree Ferguson is a 85 year old female here for a Medicare wellness visit. 1007} Medicare Health Risk Assessment General Health fair Exercise: Minutes/Day no Exercise: Days/Week no Alcohol: Daily Use Occasional Alcohol: Drinks/Day 1 Alcohol: 6 or more drinks no Feel off balance no Concerns: Teeth/Dentures no Concerns: Sexual function no Troubled by feelings no Frequency: Eating healthy diet yes ADLs requiring help no Safety precautions in home/vehicle yes Smoke, vape, chews tobacco no Difficulty hearing good Difficulty seeing good Current Providers Specialists: I have reviewed specialist-related care of the patient in the medical record. Current care team: Patient Care Team: Herminio Whitman MD as PCP - General (Family Medicine) Edith Alexis APRN.CNP as Hand Polisher (Family Medicine) Maricel Kennedy APRN.CNP as Hand Polisher (Family Medicine) Dr Olmos, optho Dr Goncalves, pulmonary Dr York, derm Dr Wilkinson, funeral car chauffeur. Medical/Family history review Reviewed and updated problem list, medical/surgical/famil y/social history, medications, and allergies. Opioid use review Prescribed: No opioid use on file in the last 90 days Patient-reported: No opioid use on file in the last 90 days Depression screening Based on score and interview, patient is: Not at risk for depression Anxiety screening Based on score and interview, patient is: Not at risk for anxiety Cognitive screening Mini Cog Score: 5 Cognitive screening reviewed and No further action needed (score 3-5). Functional Observation Was the patient's Timed Up AND Go test unsteady or >= 12 seconds? No Advance Directives Surrogate decision maker and/or advance care plan documented Measurements BP 108/62 Pulse 71 Ht 153 cm (5' 0.24) Wt 67.6 kg (149 lb) SpO2 96% BMI 28.87 kg/m? Vision Screening: Follows with optometry/ophthalmolog y ADDITIONAL INFO: Jayashree is an 85-year-old female with a history of bronchiectasis, lung nodules, HTN, CKD stage 3a, hypothyroidism, and immunodeficiency, presenting for an annual wellness visit, with additional complaints of right shoulder pain and hoarseness. Annual Wellness Exam: - General health: Fair. - No formal exercise; limited by dyspnea. - Alcohol consumption: 1 drink/day, several days/week. - No issues with balance, dental health, or sexual functioning. - No concerns with mood or feelings. - Follows a healthy diet. - Independent with ADLs. - Follows safety precautions at home and in vehicle. - No tobacco use. - Hearing: Normal. - Vision: Normal; wears glasses, managed by Dr. Olmos (ophthalmology). - Recent dermatology visit with Esperanza Tian NP; does not plan to return due to location inconvenience. - Sees Dr. Langford (funeral car chauffeur) for GammaGard infusions. - No abnormal Pap smears. - No ear pain, eye discomfort, or mouth sores. - No neck lumps, bumps, or tenderness; neck stiffness attributed to arthritis. - No chest pain or palpitations. - No changes in bowel movements, hematuria, dysuria, or leg edema. Bronchiectasis: - Managed by Dr. Karen Goncalves (pulmonology). - No new cough or wheezing. - Recent pulmonary evaluation noted clear lungs. - Dyspnea progressively worsening; limited physical activity. - Recent echocardiogram ordered by make up arranger. Right Shoulder Pain: - Chronic right shoulder pain, attributed to rotator cuff injury. - Recent evaluation by DISTRIBUTION TRANSFORMER ASSEMBLER; prescribed prednisone with temporary relief. - Aggravated by lifting objects, such as a laundry basket. - Recent X-rays showed no significant abnormalities. - Pain improved with prednisone; not considering orthopedic referral at this time. Hoarseness: - Intermittent hoarseness; uncertain etiology. - No associated heartburn. Benign Essential Tremor: - Believes sertraline exacerbates tremor. - Interested in adjusting sertraline dosage to alleviate tremor symptoms. HTN: - Managed with Lipitor, Cardizem, labetalol, and losartan. - Requests refill for Cardizem. CKD Stage 3a: - Recent labs show stable kidney function. - Undergoes blood work every 3 months for infusions. Hypothyroidism: - Managed with levothyroxine. - No recent changes in energy levels. Immunodeficiency: - Managed with GammaGard infusions. Depression: - Managed with sertraline 50 mg. - Reports sertraline helps with mood stabilization. - Recent stressors include daughter's amputation. - Denies feeling nervous, anxious, or on edge; experiences waves of worry. - Reports (more content not included)... Normal [facility] CNOVon 08-26-2025 CNOV Office Visit (MARIANA ) JAYASHREE FERGUSON ([id number]) 1940 F Date Time Provider Department 08/26/25 9:40 AM NATHALY JENKINSSHALONDA During your visit today, we recorded the following information about you: Pulse Blood pressure Weight 77/minute 160/62 66.2 kg Nathaly Jenkins, TRENT.DATA ANALYSIS INTERN 08/26/2025 11:24 AM Signed This is a 85 year old female who presents today with: Right shoulder pain, post fall Nurse triage call today: Pt states she fell about 2 weeks ago and put her right hand down and fell on her right knee. States knee was black and blue but it is better now. Pt states her right shoulder was sore after she fell but the last 4-5 days has been much worse. ROM is diminished-reaching behind her back. Right shoulder cracks when she puts it above her head. Pt booked for an appt with Nathaly Jenkins at 940 am today. HISTORY OF PRESENT ILLNESS: Right Shoulder Pain: - Onset after a fall in the kitchen, during which Jayashree braced herself with her right hand. - Pain has worsened recently; initially managed with heat application. - Describes pain as a muscle hurt with occasional shooting pain down to the back of the hand. The muscle aches is in shoulder and down bicep/tricep. - Pain is exacerbated by certain movements, particularly reaching behind the back. - Denies previous shoulder issues or rotator cuff problems. - Has not been evaluated by a physician for this issue prior to today. - Denies diabetes; tolerates steroids well. - Taking Tylenol for pain management; avoids NSAIDs. - Has an appointment with Dr. Whitman next month. PAST MEDICAL HISTORY: PAST MEDICAL HISTORY Diagnosis Date BCC (basal cell carcinoma) 08/26/09 face Essential hypertension, benign Foraminal stenosis of lumbar region 1997 MRI History of lumbosacral spine surgery 12/07/2019 1. L5-S1 posterolateral arthrodesis. 2. L5-S1 laminectomy, medial facetectomy, bilateral foraminotomy. 3. 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 MRI 1997 Unspecified hypothyroidism Hypothyroidism PAST SURGICAL HISTORY Procedure Laterality Date ANESTHESIA EYELID RECONSTRUCTIVE PROCEDURE ARTHROSCOPY KNEE DIAGNOSTIC W/WO SYNOVIAL BX SPX Right Arthroscopy, knee LAMINECTOMY W/O FFD 11/29 VERT SEG LUMBAR 2001 Laminectomy, lumbar fusion x2 SKIN BX, 1 LESION Melanoma ressection TOTAL KNEE REPLACEMENT Right Orthopeadic One [place] ALLERGIES Erythromycin, Opioids - Morphine Analogues, Sulfa (Sulfonamide Antibiotics), Ciprofloxacin, Levaquin [Levofloxacin], Penicillin G, Tetracycline, and Tramadol MEDICATIONS Current Outpatient Medications Medication Sig losartan (COZAAR) 100 mg tablet Take 1 tablet by mouth once daily. labetalol (TRANDATE) 100 mg tablet Take 1 tablet by mouth once daily. levothyroxine (SYNTHROID) 75 mcg tablet Take 1 tablet by mouth once daily. Except 1 day a week take half a tablet. Take on empty stomach. For Thyroid sertraline (ZOLOFT) 50 mg tablet Take 1 tablet by mouth daily at bedtime. ADVAIR HFA 115-21 mcg/actuation inhaler Inhale 2 Puffs as instructed two times a day. atorvastatin (LIPITOR) 10 mg tablet Take 1 tablet by mouth once daily. dilTIAZem CD (CARDIZEM CD, CARTIA XT) 120 mg 24 hr capsule Take 1 capsule by mouth two times a day. Cholecalciferol, Vitamin D3, 50 mcg (2,000 unit) cap Take 1 capsule by mouth. albuterol (PROVENTIL) 2.5 mg /3 mL (0.083 %) nebulizer solution Use 3 mL via nebulizer as needed for wheezing/shortness of breath. immun glob G,IgG,/gly/IgA ov50 (GAMMAGARD LIQUID INJECTION) by INJECTION(UNSPECIFIED PARENTERAL ROUTES) route. Infusion every 4 wks acetaminophen (TYLENOL) 500 mg tablet Take 1,000 mg by mouth three times daily as needed. predniSONE (DELTASONE) 10 mg tablet Take 4 tablets by mouth once daily for 3 days, THEN 3 tablets once daily for 3 days, THEN 2 tablets once daily for 3 days, THEN 1 tablet once daily for 3 days. No current facility-administered medications for this visit. FAMILY HISTORY Problem Relation Age of Onset Hypertension Mother Heart Mother Stroke Mother Cancer Father brain No Known Problems Brother Rheumatologic disease Daughter Rh arthritis. SOCIAL HISTORY[1] REVIEW OF SYSTEMS Musculoskeletal: (+) right shoulder pain, (+) right shoulder heaviness, (+) decreased right shoulder range of motion, (+) shooting pain to back of right hand, (+) right upper arm muscle pa (more content not included)... [facility] Telephone (FAMPWS) JAYASHREE FERGUSON ([id number]) 1940 F Date Time Provider Department 08/26/25 HERMINIO WHITMAN During your visit today, we recorded the following information about you: Prisca Sullivan, DIANE 08/26/2025 8:46 AM Signed Pt states she fell about 2 weeks ago and put her right hand down and fell on her right knee. States knee was black and blue but it is better now. Pt states her right shoulder was sore after she fell but the last 4-5 days has been much worse. ROM is diminished-reaching behind her back. Right shoulder cracks when she puts it above her head. Pt booked for an appt with Nathaly Jenkins at 940 am today. Allergies As of Date: 08/26/2025 Noted Allergy Reaction ERYTHROMYCIN 02/13/2014 11 - Vomiting OPIOIDS - MORPHINE ANALOGUES 11/25/2017 8 - GI Upset Comments: Vomiting. Stomach spasms. SULFA (SULFONAMIDE ANTIBIOTICS) 05/21/2024 10 - Anaphylaxis CIPROFLOXACIN 07/24/2021 15 - Contraindication-Medic al [facility]* Comments: Tendon rupture with Cipro LEVAQUIN (LEVOFLOXACIN) 07/24/2021 15 - Contraindication-Medic al [place]* Comments: Tendon rupture PENICILLIN G 10/07/2003 2 - Rash Comments: Childhood dose. Rash elbows and knees, swelling TETRACYCLINE 02/13/2014 11 - Vomiting TRAMADOL 10/04/2017 11 - Vomiting Date Reviewed: 03/21/2025 Reviewed by: Esperanza Perrin APRN.DATA ANALYSIS INTERN - Fully Assessed Reason for Visit: right shoulder pain [Other] Prescriptions as of 08/26/2025 - losartan (COZAAR) 100 mg tablet Take 1 tablet by mouth once daily. - labetalol (TRANDATE) 100 mg tablet Take 1 tablet by mouth once daily. - levothyroxine (SYNTHROID) 75 mcg tablet Take 1 tablet by mouth once daily. Except 1 day a week take half a tablet. Take on empty stomach. For Thyroid - sertraline (ZOLOFT) 50 mg tablet Take 1 tablet by mouth daily at bedtime. - ADVAIR HFA 115-21 mcg/actuation inhaler Inhale 2 Puffs as instructed two times a day. - atorvastatin (LIPITOR) 10 mg tablet Take 1 tablet by mouth once daily. - dilTIAZem CD (CARDIZEM CD, CARTIA XT) 120 mg 24 hr capsule Take 1 capsule by mouth two times a day. - Cholecalciferol, Vitamin D3, 50 mcg (2,000 unit) cap Take 1 capsule by mouth. - albuterol (PROVENTIL) 2.5 mg /3 mL (0.083 %) nebulizer solution Use 3 mL via nebulizer as needed for wheezing/shortness of breath. - immun glob G,IgG,/gly/IgA ov50 (GAMMAGARD LIQUID INJECTION) by INJECTION(UNSPECIFIED PARENTERAL ROUTES) route. Infusion every 4 wks - acetaminophen (TYLENOL) 500 mg tablet Take 1,000 mg by mouth three times daily as needed. Problem List As Of Date 08/26/2025 Noted Resolved Benign neoplasm of skin of other and unspecifie*10/14/2003 02/01/2014 PLANTAR NERVE LESION [G57.60] 04/25/2007 Synovitis and tenosynovitis, unspecified [M65.9*08/22/2007 03/05/2024 Actinic keratosis [L57.0] 11/09/2007 03/05/2024 Other chronic dermatitis due to solar radiation*11/09/2007 02/01/2014 Scar condition and fibrosis of skin [L90.5] 11/09/2007 02/01/2014 H/O NOSE//PERS HX MALIG SKIN MELANOMA [Z85.820] 11/09/2007 SOLAR LENGINES///DYSCHROMIA OTHER [L81.9] 11/09/2007 Inflamed seborrheic keratosis [L82.0] 12/05/2008 02/01/2014 Contact dermatitis and other eczema, due to uns*12/05/2008 02/01/2014 Malignant neoplasm of skin of parts of face [C4*09/08/2009 Hypothyroidism [E03.9] Mixed hyperlipidemia [E78.2] 08/23/2022 Essential hypertension, benign [I10] IBS (irritable bowel syndrome) [K58.9] Rotator cuff impingement syndrome [M75.40] 02/28/2014 Left shoulder pain [M25.512] 02/28/2014 08/21/2021 Personal history of skin cancer [Z85.828] 05/30/2014 Acquired hypothyroidism [E03.9] 09/12/2015 08/22/2020 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] Stage 3 chronic kidney disease (HCC) [N18.30] 07/13/2018 History of lumbosacral spine surgery [Z98.890] 12/07/2019 S/P lumbar spinal arthrodesis, posterolateral [*12/07/2019 Lung nodules [R91.8] 07/11/2020 Bronchiectasis without complication (HCC) [J47.*07/11/2020 Hypertensive heart disease with stage 3 chronic*08/22/2020 08/22/2020 Hypertensive chronic kidney disease with stage *03/23/2021 10/10/2023 Advance care planning [Z71.89] 02/18/2022 Immunodeficiency (HCC) [D84.9] 09/12/2024 Encounter Status:Closed by PRISCA SULLIVAN on 08/26/25 [facility] XR HUMERUS 2V AP/LAT RTon XR HUMERUS 2V AP/LAT RT * * *Final Report* * * DATE OF EXAM: Aug 26 2025 10:39AM WOX [id number] - XR HUMERUS 2V AP/LAT RT / PROCEDURE REASON: multiple diagnoses * * * * Physician Interpretation * * * * TITLE: XR SHOULDER 2V AP/TRUE AP RT, XR HUMERUS 2V AP/LAT RT CLINICAL INDICATION: Pain TECHNIQUE: Two-view radiographic study of the right shoulder and right humerus COMPARISON: None FINDINGS: Osseous demineralization. No acute fracture or dislocation identified. Mild glenohumeral and acromioclavicular joint degenerative changes with mild joint space narrowing and miniscule marginal osteophyte formation IMPRESSION: No radiographic evidence of acute osseous injury Revenue Field Auditor: SKYLAR Transcribe Date/Time: Aug 27 2025 3:03P Dictated by : LILIBETH STARR MD This examination was interpreted and the report reviewed and electronically signed by: LILIBETH STARR MD on Aug 27 2025 3:22PM EST [id number] Normal [facility] XR SHOULDER 2V AP/TRUE AP RT on 08-26-2025 XR SHOULDER 2V AP/TRUE AP RT * * *Final Report* * * DATE OF EXAM: Aug 26 2025 10:39AM WOX [id number] - XR SHOULDER 2V AP/TRUE AP RT / PROCEDURE REASON: multiple diagnoses * * * * Physician Interpretation * * * * TITLE: XR SHOULDER 2V AP/TRUE AP RT, XR HUMERUS 2V AP/LAT RT CLINICAL INDICATION: Pain TECHNIQUE: Two-view radiographic study of the right shoulder and right humerus COMPARISON: None FINDINGS: Osseous demineralization. No acute fracture or dislocation identified. Mild glenohumeral and acromioclavicular joint degenerative changes with mild joint space narrowing and miniscule marginal osteophyte formation IMPRESSION: No radiographic evidence of acute osseous injury Revenue Field Auditor[facility] Transcribe Date/Time: Aug 27 2025 3:03P Dictated by : LILIBETH STARR MD This examination was interpreted and the report reviewed and electronically signed by: LILIBETH STARR MD on Aug 27 2025 3:22PM EST [id number] Normal [facility] CNOVon 03-21-2025 CNOV Office Visit ([facility]) JAYASHREE FERGUSON ([id number]) 1940 F Date Time Provider Department 03/21/25 1:00 PM ESPERANZA PERRIN [facility] During your visit today, we recorded the following information about you: Esperanza Perrin APRN.DATA ANALYSIS INTERN 03/21/2025 4:10 PM Signed NEW PATIENT Chief Complaint: LESION, SKIN History of Present Ilness: Jayashree Ferguson is a 84 year old female who presents today for a focused skin examination. Accompanied by spouse. 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 Medication List is reviewed. ROS: Skin as above. Physical Exam: Lo skin type: II The patient is a pleasant female in no apparent distress. Alert and oriented x 3. A skin exam performed of the face is significant for: Left Buccal Cheek Erythematous papule with gritty adherent scale Assessment and Plan: ACTINIC KERATOSIS Left Buccal Cheek Discussed etiology and possibility of transformation to SCC. Discussed treatment options including liquid nitrogen treatment along with the risks and benefits; patient elects to proceed. CRYOTHERAPY SKIN LESION - Left Buccal Cheek Complexity: simple Destruction method: cryotherapy Informed consent: discussed and consent obtained Informed consent comment: Verbal Lesion destroyed using liquid nitrogen: Yes Region frozen until ice ball extended beyond lesion: Yes Cryotherapy cycles: 2 Outcome: patient tolerated procedure well with no complications Post-procedure details: wound care instructions given Additional details: Patient elects for treatment with Cryotherapy: Risks, benefits, alternatives, complications, and personnel required for cryosurgery were reviewed with the patient. Specifically, the risks of permanent scarring, loss or darkening of skin color, blister, incomplete treatment, and recurrence of the lesion were discussed. The patient verbalizes understanding and wishes to proceed. Patient tolerated well and wound care was discussed. Return if lesions fail to fully resolve. Sunscreen and sun protection reviewed. Should any areas change in size, shape or color, bleed or become tender, the patient will contact the office for evaluation sooner than their interval appointment. Follow up: FBSE The documentation for this note was completed by Leonila Hernandez MA acting as scribe for Esperanza Perrin APRN.CNP. I agree with the Chief Complaint, ROS, and Past Histories independently gathered by the clinical senior technical support analyst and the remaining scribed note accurately describes my personal service to the patient. YENY Esquivel Jenelle, MA 03/21/2025 1:10 PM Signed Department of Dermatology [address] [facility] [address] [place] [id number] SKIN CARE AFTER CRYOSURGERY Post - Operative Instructions The skin's response to cryosurgery (freezing) can be mild to more severe, depending on the depth of the freeze and the location of the area treated. You may have only mild redness and swelling with a little discomfort of significant discoloration and blistering with considerable discomfort. A burning sensation in the skin may last from several minutes to several hours after the procedure. Follow these instructions when caring for an area treated by cryosurgery: MINOR RESPONSE: The area may sting or burn for a short time after treatment. The treated area will be red in color at first then turn brown and flaky as it heals and the upper layer of skin sloughs off. Gently cleanse the area with soap and water. Pat dry and apply a thin film of: vaseline. Do this at least once a day to prevent infection. MAJOR RESPONSE: Follow instructions as stated for minor response. The area may sting and burn for several hours after treatment. To relieve throbbing and pain, elevate the treatment area. Acetaminophen (Tylenol) may be taken every 3 to 4 hours for discomfort. A blister will form in the area of freezing. It may be filled with clear fluid or blood. This response is not unusual. Do not break the blister unless it becomes uncomfortable. You may prick the blister with a sterile needle or pin to remove the flui (more content not included)... Normal [facility] Basic metabolic 2000 panelon 03-15-2025 Anion gap [Moles/Vol] 11 mmol/L Normal 8-15 [facility] Comment on above: Order Comment: Speci men Type: BLOOD SPECIMENOrdering Facility: [facility] Address: [address] [place] [address] Performed By: #### T 4FTI, 22756-3, 3016-3 ####[facility] LABCLIA [id number] [place] [address] [place] Calcium [Mass/Vol] 10.5 mg/dL High 8.5-10.2 [facility] Comment on above: Order Comment: Speci men Type: BLOOD SPECIMENOrdering Facility: [facility] Address: [address] [place] [address] Performed By: #### T 4FTI, 61139-2, 6-3 ####[facility] LABCLIA [id number] [place] [id number] [place] Chloride [Moles/Vol] 106 mmol/L Normal 98-107 [facility] Comment on above: Order Comment: Speci men Type: BLOOD SPECIMENOrdering Facility: [facility] Address: [address] [place] [address] Performed By: #### T 4FTI, 12453-9, 3015-3 ####[facility] LABCL[facility] [id number] [place] [address] [place] CO2 [Moles/Vol] 24 mmol/L Normal 22-30 [facility] Comment on above: Order Comment: Speci men Type: BLOOD SPECIMENOrdering Facility: [facility] Address: [address] [place] [address] Performed By: #### T 4FTI, 49441-3, 3015-3 ####[facility] LABIA [id number] [place] [address] [place] Creatinine [Mass/Vol] 1.06 mg/dL High 0.58-0.96 [facility] Comment on above: Order Comment: Speci men Type: BLOOD SPECIMENOrdering Facility: [facility] Address: [address] [place] [address] Performed By: #### T 4FTI, 37551-0, 3 ####[facility] LABIA [id number] [place] [id number] [place] Creatinine and Glomerular filtration rate.predicted panel (S/P/Bld) 52 mL/min/1.73m??? Low >=60 [facility] Comment on above: Order Comment: Speci men Type: BLOOD SPECIMENOrdering Facility: [facility] Address: [address] [place] [address] Result Comment: Enid mated Glomerular Filtration Rate (eGFR) is calculated using the 2020 CKD-EPI creatinine equation. This equation utilizes serum creatinine, sex, and age as parameters. The creatinine assay has traceable calibration to isotope dilution-mass spectrometry. Refer to KDIGO guidelines for clinical interpretation. In patients with unstable renal function, e.g. those with acute kidney injury, the eGFR may not accurately reflect actual GFR. Performed By: #### T 4FTI, 87891-9, 3015-3 ####[facility] LABCLIA [id number] [address] [address] [place] Glucose [Mass/Vol] 95 mg/dL Normal 74-99 [facility] Comment on above: Order Comment: Specjuan funez Type: BLOOD SPECIMENOrdering Facility: [facility] Address: [address] [place] [address] Result Comment: The [place] Diabetes Association (ADA) provides guidance for cutoff values for fasting glucose and random glucose. The ADA defines fasting as no caloric intake for at least 8 hours. Fasting plasma glucose results between 100 to 125 mg/dL indicate increased risk for diabetes (prediabetes). Fasting plasma glucose results greater than or equal to 126 mg/dL meet the criteria for diagnosis of diabetes. In the absence of unequivocal hyperglycemia, results should be confirmed by repeat testing. In a patient with classic symptoms of hyperglycemia or hyperglycemic crisis, random plasma glucose results greater than or equal to 200 mg/dL meet the criteria for diagnosis of diabetes. Reference: Standards of Medical Care in Diabetes 2016, [place] [employer] Association. Diabetes Care. 2016.39(Suppl 1). Performed By: #### T 4FTI, 11955-3, 3015-3 ####[facility] LABCLIA [id number] [address] [address] [place] Potassium [Moles/Vol] 4.5 mmol/L Normal 3.7-5.1 [facility] Comment on above: Order Comment: Magdalena funez Type: BLOOD SPECIMENOrdering Facility: [facility] Address: [address] [place] [address] Performed By: #### T 4FKIM, 33164-5, 3015-3 ####[facility] LABIA [id number] [place] [id number] [place] Sodium [Moles/Vol] 141 mmol/L Normal 136-144 [facility] Comment on above: Order Comment: Speci men Type: BLOOD SPECIMENOrdering Facility: [facility] Address: [address] [place] [address] Performed By: #### T 4FTI, 35598-2, 3016-3 ####[facility] LABIA [id number] [place] [id number] [place] Urea nitrogen [Mass/Vol] 19 mg/dL Normal 7-21 [facility] Comment on above: Order Comment: Speci men Type: BLOOD SPECIMENOrdering Facility: [facility] Address: [address] [place] [address] Performed By: #### T 4FTI, 47384-9, 3016-3 ####[facility] LABIA [id number] [place] [id number] [place] CNOVon 03-15-2025 CNOV Office Visit (FAMPWS ) JAYASHREE FERGUSON ([id number]) 1940 F Date Time Provider Department 03/15/25 10:00 AM HERMINIO WHITMAN FAMPWS During your visit today, we recorded the following information about you: Pulse Blood pressure Weight Height 71/minute 132/73 66.7 kg 1.524 m Herminio Whitman MD 03/15/2025 10:41 AM Signed Patient presents with: 6 Month Exam HPI: Patient presents today for office visit for follow up. HTN: Monitors BP occ. Denies chest pain. Worsening shortness of breath. Uses inhaler. Coughs frequently. Denies dizziness. No palpitations or syncope. No edema. Having frequent headaches. Wakes up with them. Ongoing X 6+ weeks. Thinks it is related to her neck. 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 Not the worst headache she has had. No new focal neuro issues. Usually when up and moving it gets better. Has a large amount of crepitus in her neck. She does not think its anything THYROID: Having some energy, hair and skin changes. Feeling fatigued. Hair is thinning Refers to thinking this is all related to her Gammagard infusions. Feels weak at times. HLD: No myalgias. PSYCH: Continues on Sertraline 25 mg daily. She did double it recently and only took for about two weeks. Unsure if helped but not sure is long enough. Moods have been terrible. Refers to her moods being circumstantial. Has a lot of family/personal things going on. States nothing is going right Sleeping well. mentions a rash on her left cheek. Red bump. Used hydrocortisone and neosporin with no improvement. Been there a few months. Some itching. Seeing [facility] still. Follows for pulmonary/immunology. MEDICATIONS: Current Outpatient Medications Medication Sig ADVAIR HFA 115-21 mcg/actuation inhaler Inhale 2 Puffs as instructed two times a day. levothyroxine (SYNTHROID) 75 mcg tablet Take 1 tablet by mouth once daily. Except 1 day a week take half a tablet. Take on empty stomach. For Thyroid atorvastatin (LIPITOR) 10 mg tablet Take 1 tablet by mouth once daily. dilTIAZem CD (CARDIZEM CD, CARTIA XT) 120 mg 24 hr capsule Take 1 capsule by mouth two times a day. losartan (COZAAR) 100 mg tablet Take 1 tablet by mouth once daily. labetalol (TRANDATE) 100 mg tablet Take 1 tablet by mouth once daily. sertraline (ZOLOFT) 25 mg tablet Take 1 tablet by mouth daily at bedtime. Cholecalciferol, Vitamin D3, 50 mcg (2,000 unit) cap Take 1 capsule by mouth. albuterol (PROVENTIL) 2.5 mg /3 mL (0.083 %) nebulizer solution Use 3 mL via nebulizer as needed for wheezing/shortness of breath. immun glob G,IgG,/gly/IgA ov50 (GAMMAGARD LIQUID INJECTION) by INJECTION(UNSPECIFIED PARENTERAL ROUTES) route. Infusion every 4 wks acetaminophen (TYLENOL) 500 mg tablet Take 1,000 mg by mouth three times daily as needed. No current facility-administered medications for this visit. ALLERGIES: ALLERGIES Allergen Reactions Erythromycin Vomiting Opioids - Morphine * GI Upset Vomiting. Stomach spasms. Sulfa (Sulfonamide * Anaphylaxis Ciprofloxacin Contraindication-Medic al Surgical Tendon rupture with Cipro Levaquin [Levofloxa* Contraindication-Medic al Surgical Tendon rupture Penicillin G Rash Childhood dose. Rash elbows and knees, swelling Tetracycline Vomiting Tramadol Vomiting PAST MEDICAL HISTORY Diagnosis Date BCC (basal cell carcinoma) 08/26/09 face Essential hypertension, benign Foraminal stenosis of lumbar region 1997 MRI History of lumbosacral spine surgery 12/07/2019 1. L5-S1 posterolateral arthrodesis. 2. L5-S1 laminectomy, medial facetectomy, bilateral foraminotomy. 3. 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 Social History Tobacco Use Smoking status: Former Current packs/day: 0.00 Average packs/day: 1 pack/day for 1 (more content not included)... Normal [facility] ESR Westergren method (Bld) [Velocity]on 03-15-2025 ESR (Bld) [Velocity] 25 mm/h High 0-20 [facility] Comment on above: Order Comment: Speci men Type: BLOOD SPECIMENOrdering Facility: [facility] Address: [address] [place] [address] Performed By: #### 4 537-7 ####[facility] [id number] [place] [id number] [place] T4/FTI/T4Uon 03-15-2025 FTI 8.3 ug/dL Normal 5.3-10.8 [facility] Comment on above: Order Comment: Speci men Type: BLOOD SPECIMENOrdering Facility: [facility] Address: [address] [place] [address] Performed By: #### T 4FTI, 77971-3, 3016-3 ####[facility] [id number] [place] [address] [place] T4 [Mass/Vol] 8.8 ug/dL Normal 5.5-10.2 [facility] Comment on above: Order Comment: Speci men Type: BLOOD SPECIMENOrdering Facility: [facility] Address: [address] [place] [address] Performed By: #### T 4FTI, 02786-6, 3016-3 ####[facility] [id number] [address] [place] T4 uptake [Mass/Vol] 1.06 Normal 0.91-1.19 [facility] Comment on above: Order Comment: Speci men Type: BLOOD SPECIMENOrdering Facility: [facility] Address: [address] [place] [address] Performed By: #### T 4FTI, 65979-5, 3016-3 ####[facility] [id number] [place] [id number] [place] TSH SerPl-aCncon 03-15-2025 TSH Qn 2.280 m[IU]/L Normal 0.270-4.200 [facility] Comment on above: Order Comment: Speci men Type: BLOOD SPECIMENOrdering Facility: [facility] Address: [address] [place] [address] Performed By: #### T 4FTI, 88617-1, 3016-3 ####[facility] LABCLIA [id number] [facility] [place] [address] [place] XR CERVICAL 4V AP/LAT/OBLon 03-15-2025 XR CERVICAL 4V AP/LAT/OBL * * *Final Report* * * DATE OF EXAM: Mar 15 2025 11:22AM WOX [id number] - XR CERVICAL 4V AP/LAT/OBL / PROCEDURE REASON: multiple diagnoses * * * * Physician Interpretation * * * * PROCEDURE: Cervical spine INDICATION: Headache, unspecified headache type Neck pain .chronic lower cervical pain and for the past couple of months has been waking up almost every day with a headache no inj TECHNIQUE: XR CERVICAL 4V AP/LAT/OBL COMPARISON: None FINDINGS: Normal alignment without acute fracture or subluxation. Advanced degenerative disc disease C3-C7. No significant facet arthrosis or definite high-grade bony neural foraminal narrowing. Prevertebral soft tissues are within normal limits. IMPRESSION: Advanced multilevel degenerative disc disease Revenue Field Auditor: PSCB Transcribe Date/Time: Mar 20 2025 8:56A Dictated by : AMBROCIO LEDEZMA MD This examination was interpreted and the report reviewed and electronically signed by: AMBROCIO LEDEZMA MD on Mar 20 2025 8:57AM EST [id number] Normal [facility] XR Chest PA and Lateral and AP lateral-decubituson 02-19-2025 No focal infiltrate. Blunting of the right costophrenic angle representing a small effusion or pleural thickening. J/[facility] Workstation ID: [id number] GE RIS HISTORY: moran EXAMINATION: XR CHEST AP/PA AND LAT 02/13/2025 4:08 pm COMPARISON: None. FINDINGS: No focal infiltrates are seen. There is blunting of the right costophrenic angle. This may represent a small effusion or pleural thickening. GE RIS Hortensia Alcala MD - 02/19/2025 HISTORY: moran EXAMINATION: XR CHEST AP/PA AND LAT 02/13/2025 4:08 pm COMPARISON: None. FINDINGS: No focal infiltrates are seen. There is blunting of the right costophrenic angle. This may represent a small effusion or pleural thickening. IMPRESSION: No focal infiltrate. Blunting of the right costophrenic angle representing a small effusion or pleural thickening. [employer] Workstation ID: [id number] [facility] XR Chest PA and Lateral and AP lateral-decubitusOrdered By: Hortensia Alclaa on 02-19-2025 [facility] Work Phone: XR CHEST AP/PA AND LATon XR CHEST AP/PA AND LAT HISTORY: moran EXAMINATION: XR CHEST AP/PA AND LAT 02/13/2025 4:08 pm COMPARISON: None. FINDINGS: No focal infiltrates are seen. There is blunting of the right costophrenic angle. This may represent a small effusion or pleural thickening. IMPRESSION: No focal infiltrate. Blunting of the right costophrenic angle representing a small effusion or pleural thickening. [employer] Workstation ID: [id number] Dictated by: Hortensia ALCALA on TueFeb 19, 2025 7:54:13 AM EDT Transcribed by: MARIANN HICKMAN on TueFeb 19, 2025 8:08:01 AM EDT Finalized by: Hortensia ALCALA on TueFeb 19, 2025 8:14:09 AM EDT Normal [facility] Comment on above: Order Comment: Injur y/Trauma or Illness?:Illness/Other How long have you had these symptoms (acute/chronic)?:Acute Reason for exam?:moran, Bronchiectasis without complication (HCC), MORAN (dyspnea on exertion) History of cancer?:unk Surgeries, chemotherapy, or radiation?:unk Type of Exam?:Initial Additional signs and symptoms?:no XR Chest PA and Lateral and AP lateral-decubituson 02-13-2025 Radiology Study observation (narrative) [facility] CBC W Auto Differential pane l (Bld)on 11-27-2024 Basophils (Bld) [#/Vol] 0.03 10*3/uL Normal <0.11 [facility] Comment on above: Order Comment: Speci men Type: BLOOD SPECIMENOrdering Facility: [facility] Address: [address] [place] [address] Performed By: #### 5 7021-8 ####[facility] LABCLIA [id number] [place] [address] [place] Basophils/100 WBC (Bld) 0.5 % Normal [facility] Comment on above: Order Comment: Speci men Type: BLOOD SPECIMENOrdering Facility: [facility] Address: [address] [place] [address] Performed By: #### 5 7021-8 ####[facility] LABCLIA [id number] [place] [address] [place] Differential cell count method Nom (Bld) Auto Normal [facility] Comment on above: Order Comment: Speci men Type: BLOOD SPECIMENOrdering Facility: [facility] Address: [address] [place] [address] Performed By: #### 5 7021-8 ####[facility] LABCLIA [id number] [place] [address] [place] Eosinophils (Bld) [#/Vol] 0.14 10*3/uL Normal <0.46 [facility] Comment on above: Order Comment: Speci men Type: BLOOD SPECIMENOrdering Facility: [facility] Address: [address] [place] [address] Performed By: #### 5 7021-8 ####[facility] LABCLIA [id number] [place] [address] [place] Eosinophils/100 WBC (Bld) 2.2 % Normal [facility] Comment on above: Order Comment: Speci men Type: BLOOD SPECIMENOrdering Facility: [facility] Address: [address] [place] [address] Performed By: #### 5 7021-8 ####[facility] LABCLIA [id number] [place] [address] [place] Erythrocyte distribution width (RBC) [Ratio] 13.2 % Normal 11.5-15.0 [facility] Comment on above: Order Comment: Speci men Type: BLOOD SPECIMENOrdering Facility: [facility] Address: [address] [place] [address] Performed By: #### 5 7021-8 ####[facility] LABIA [id number] [place] [address] [place] Hematocrit (Bld) [Volume fraction] 39.5 % Normal 36.0-46.0 [facility] Comment on above: Order Comment: Speci men Type: BLOOD SPECIMENOrdering Facility: [facility] Address: [address] [place] [address] Performed By: #### 5 7021-8 ####[facility] LABIA [id number] [place] [address] [place] Hemoglobin (Bld) [Mass/Vol] 13.2 g/dL Normal 11.5-15.5 [facility] Comment on above: Order Comment: Speci men Type: BLOOD SPECIMENOrdering Facility: [facility] Address: [address] [place] [address] Performed By: #### 5 7021-8 ####[facility] LABIA [id number] [place] [address] [place] Immature granulocytes (Bld) [#/Vol] 10*3/uL Normal <0.10 [facility] Comment on above: Order Comment: Speci men Type: BLOOD SPECIMENOrdering Facility: [facility] Address: [address] [place] [address] Performed By: #### 5 7021-8 ####[facility] LABIA [id number] [place] [address] [place] Immature granulocytes/100 WBC (Bld) 0.3 % Normal [facility] Comment on above: Order Comment: Speci men Type: BLOOD SPECIMENOrdering Facility: [facility] Address: [address] [place] [address] Performed By: #### 5 7021-8 ####[facility] LABCLIA [id number] [place] [address] [place] Lymphocytes (Bld) [#/Vol] 2.62 10*3/uL Normal 1.00-4.00 [facility] Comment on above: Order Comment: Speci men Type: BLOOD SPECIMENOrdering Facility: [facility] Address: [address] [place] [address] Performed By: #### 5 7021-8 ####[facility] LABCLIA [id number] [place] [address] [place] Lymphocytes/100 WBC (Bld) 40.7 % Normal [facility] Comment on above: Order Comment: Speci men Type: BLOOD SPECIMENOrdering Facility: [facility] Address: [address] [place] [address] Performed By: #### 5 7021-8 ####[facility] LABCLIA [id number] [place] [address] [place] MCH (RBC) [Entitic mass] 29.9 pg Normal 26.0-34.0 [facility] Comment on above: Order Comment: Speci men Type: BLOOD SPECIMENOrdering Facility: [facility] Address: [address] [place] [address] Performed By: #### 5 7021-8 ####[facility] LABCLIA [id number] [place] [address] [place] MCHC (RBC) [Mass/Vol] 33.4 g/dL Normal 30.5-36.0 [facility] Comment on above: Order Comment: Speci men Type: BLOOD SPECIMENOrdering Facility: [facility] Address: [address] [place] [address] Performed By: #### 5 7021-8 ####[facility] LABCLIA [id number] [id number] [address] [place] MCV (RBC) [Entitic vol] 89.6 fL Normal 80.0-100.0 [facility] Comment on above: Order Comment: Speci men Type: BLOOD SPECIMENOrdering Facility: [facility] Address: [address] [place] [address] Performed By: #### 5 7021-8 ####[facility] LABCLIA [id number] [place] [address] [place] Monocytes (Bld) [#/Vol] 0.68 10*3/uL Normal <0.87 [facility] Comment on above: Order Comment: Speci men Type: BLOOD SPECIMENOrdering Facility: [facility] Address: [address] [place] [address] Performed By: #### 5 7021-8 ####[facility] LABCLIA [id number] [place] [address] [place] Monocytes/100 WBC (Bld) 10.6 % Normal [facility] Comment on above: Order Comment: Speci men Type: BLOOD SPECIMENOrdering Facility: [facility] Address: [address] [place] [address] Performed By: #### 5 7021-8 ####[facility] LABCLIA [id number] [place] [address] [place] Neutrophils (Bld) [#/Vol] 2.95 10*3/uL Normal 1.45-7.50 [facility] Comment on above: Order Comment: Speci men Type: BLOOD SPECIMENOrdering Facility: [facility] Address: [address] [place] [address] Performed By: #### 5 7021-8 ####[facility] LABCLIA [id number] [place] [address] [place] Neutrophils/100 WBC (Bld) 45.7 % Normal [facility] Comment on above: Order Comment: Speci men Type: BLOOD SPECIMENOrdering Facility: [facility] Address: [address] [place] [address] Performed By: #### 5 7021-8 ####[facility] LABCLIA [id number] [place] [address] [place] Nucleated RBC (Bld) [#/Vol] 10*3/uL Normal <0.01 [facility] Comment on above: Order Comment: Speci men Type: BLOOD SPECIMENOrdering Facility: [facility] Address: [address] [place] [address] Performed By: #### 5 7021-8 ####[facility] LABIA [id number] [place] [address] [place] Nucleated RBC/100 WBC (Bld) [Ratio] 0.0 /100 WBC Normal [facility] Comment on above: Order Comment: Speci men Type: BLOOD SPECIMENOrdering Facility: [facility] Address: [address] [place] [address] Performed By: #### 5 7021-8 ####[facility] LABIA [id number] [place] [address] [place] Platelet mean volume (Bld) [Entitic vol] 11.3 fL Normal 9.0-12.7 [facility] Comment on above: Order Comment: Speci men Type: BLOOD SPECIMENOrdering Facility: [facility] Address: [address] [place] [address] Performed By: #### 5 7021-8 ####[facility] LABIA [id number] [place] [address] [place] Platelets (Bld) [#/Vol] 199 10*3/uL Normal 150-400 [facility] Comment on above: Order Comment: Speci men Type: BLOOD SPECIMENOrdering Facility: [facility] Address: [address] [place] [address] Performed By: #### 5 7021-8 ####[facility] LABCLIA [id number] [place] [address] [place] RBC (Bld) [#/Vol] 4.41 10*6/uL Normal 3.90-5.20 [facility] Comment on above: Order Comment: Speci men Type: BLOOD SPECIMENOrdering Facility: [facility] Address: [address] [place] [address] Performed By: #### 5 7021-8 ####[facility] LABCLIA [id number] [place] [address] [place] WBC (Bld) [#/Vol] 6.44 10*3/uL Normal 3.70-11.00 [facility] Comment on above: Order Comment: Speci men Type: BLOOD SPECIMENOrdering Facility: [facility] Address: [address] [place] [address] Performed By: #### 5 7021-8 ####[facility] LABCLIA [id number] [address] [place] CNOVon 11-27-2024 CNOV Office Visit (FAMPWS ) POLLYSTEVENJAYASHREE Magan ([id number]) 1940 F Date Time Provider Department 11/27/24 1:20 PM MARICEL KENNEDY FAMPWS During your visit today, we recorded the following information about you: Temperature Pulse Blood pressure Weight 99.2 degrees 70/minute 132/70 67.6 kg Maricel Kennedy, ROBOTICS TECHNICIAN.DATA ANALYSIS INTERN 11/27/2024 1:52 PM Signed This is a 84 year old female who presents today with: Patient presents with: Cough: 4 days HISTORY OF PRESENT ILLNESS: Jayashree Ferguson is a 84 year old female. Patient presents with: Cough: 4 days Runny nose and cough. Hx of bronchiectasis. Severe cough for 4 days so severe that her head is hurting. Having to take Tylenol for the headache. Fever. Uncertain about chills. Feeling very tired. Did have a sore throat for 2 days initially PAST MEDICAL HISTORY: PAST MEDICAL HISTORY Diagnosis Date BCC (basal cell carcinoma) 08/26/09 face Essential hypertension, benign Foraminal stenosis of lumbar region 1997 MRI History of lumbosacral spine surgery 12/07/2019 1. L5-S1 posterolateral arthrodesis. 2. L5-S1 laminectomy, medial facetectomy, bilateral foraminotomy. 3. 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 1997 Unspecified hypothyroidism Hypothyroidism PAST SURGICAL HISTORY Procedure Laterality Date ANESTHESIA EYELID RECONSTRUCTIVE PROCEDURE ARTHROSCOPY KNEE DIAGNOSTIC W/WO SYNOVIAL BX SPX Right Arthroscopy, knee LAMINECTOMY W/O FFD 11/29 VERT SEG LUMBAR 2000 Laminectomy, lumbar fusion x2 SKIN BX, 1 LESION Melanoma ressection TOTAL KNEE REPLACEMENT Right Orthopeadic One [place] ALLERGIES Erythromycin, Opioids - Morphine Analogues, Sulfa (Sulfonamide Antibiotics), Ciprofloxacin, Levaquin [Levofloxacin], Penicillin G, Tetracycline, and Tramadol MEDICATIONS Current Outpatient Medications Medication Sig levothyroxine (SYNTHROID) 75 mcg tablet Take 1 tablet by mouth once daily. Except 1 day a week take half a tablet. Take on empty stomach. For Thyroid atorvastatin (LIPITOR) 10 mg tablet Take 1 tablet by mouth once daily. dilTIAZem CD (CARDIZEM CD, CARTIA XT) 120 mg 24 hr capsule Take 1 capsule by mouth two times a day. losartan (COZAAR) 100 mg tablet Take 1 tablet by mouth once daily. labetalol (TRANDATE) 100 mg tablet Take 1 tablet by mouth once daily. sertraline (ZOLOFT) 25 mg tablet Take 1 tablet by mouth daily at bedtime. Cholecalciferol, Vitamin D3, 50 mcg (2,000 unit) cap Take 1 capsule by mouth. albuterol (PROVENTIL) 2.5 mg /3 mL (0.083 %) nebulizer solution Use 3 mL via nebulizer as needed for wheezing/shortness of breath. immun glob G,IgG,/gly/IgA ov50 (GAMMAGARD LIQUID INJECTION) by INJECTION(UNSPECIFIED PARENTERAL ROUTES) route. Infusion every 4 wks acetaminophen (TYLENOL) 500 mg tablet Take 1,000 mg by mouth three times daily as needed. ADVAIR HFA 115-21 mcg/actuation inhaler Inhale 2 Puffs as instructed two times a day. SYMBICORT 80-4.5 mcg/actuation inhaler No current facility-administered medications for this visit. FAMILY HISTORY Problem Relation Age of Onset Hypertension Mother Heart Mother Stroke Mother Cancer Father brain No Known Problems Brother Rheumatologic disease Daughter Rh arthritis. Social History Tobacco Use Smoking status: Former Current packs/day: 0.00 Average packs/day: 1 pack/day for 10.0 years (10.0 ttl pk-yrs) Types: Cigarettes Start date: 10/27/1983 Quit date: 10/27/1993 Years since quittin.1 Smokeless tobacco: Never Tobacco comments: ETS: Father in childhood home, at patient age 5. No ETS in adult homes. Vaping Use Vaping status: Never Used Substance Use Topics Alcohol use: Yes Comment: 3-4 times a week (a glass of wine with dinner) Drug use: No EXAM: BP 132/70 Pulse 70 Temp 37.3 ?C (99.2 ?F) (Tympanic) Wt 67.6 kg (149 lb) SpO2 94% BMI 29.10 kg/m? PHYSICAL EXAM: Physical Exam Vitals reviewed. Constitutional: Appearance: Normal appearance. HENT: Head: Normocephalic. Right Ear: Tympanic membrane, ear canal and external ear normal. There is no impacted cerumen. Left Ear: Tympanic membrane, ear canal and external ear normal. There is no impacted cerumen. Nose: No congestion or rhinorrhea. Mouth/Throat: Pharynx: No oropharyngeal exudate or posterior oropharyngeal erythema. Cardiovascular: Rate and Rhythm: Normal rate and regular rhythm. Pul (more content not included)... Normal [facility] metabolic 2000 panelon 11-27-2024 Albumin [Mass/Vol] 3.9 g/dL Normal 3.9-4.9 [facility] Comment on above: Order Comment: Speci men Type: BLOOD SPECIMENOrdering Facility: [facility] Address: [address] [place] [address] Performed By: #### 2 4323-8, LIPNF, 6-3 ####[facility] LABCLIA [id number] [place] [address] [place] ALP [Catalytic activity/Vol] 112 U/L Normal 34-123 [facility] Comment on above: Order Comment: Speci men Type: BLOOD SPECIMENOrdering Facility: [facility] Address: [address] [place] [address] Performed By: #### 2 4323-8, LIPNF, 3015-3 ####[facility] LABCLIA [id number] [place] [address] [place] ALT [Catalytic activity/Vol] 14 U/L Normal 7-38 [facility] Comment on above: Order Comment: Speci men Type: BLOOD SPECIMENOrdering Facility: [facility] Address: [address] [place] [address] Performed By: #### 2 4323-8, LIPNF, 3015-3 ####[facility] LABIA [id number] [place] [address] [place] Anion gap [Moles/Vol] 12 mmol/L Normal 8-15 [facility] Comment on above: Order Comment: Speci men Type: BLOOD SPECIMENOrdering Facility: [facility] Address: [address] [place] [address] Performed By: #### 2 4323-8, LIPNF, 6-3 ####[facility] LABCLIA [id number] [place] [address] [place] AST [Catalytic activity/Vol] 28 U/L Normal 13-35 [facility] Comment on above: Order Comment: Speci men Type: BLOOD SPECIMENOrdering Facility: [facility] Address: [address] [place] [id number] Performed By: #### 2 4323-8, LIPNF, 6-3 ####[facility] LABCLIA [id number] [place] [address] [place] Bilirubin [Mass/Vol] 0.4 mg/dL Normal 0.2-1.3 [facility] Comment on above: Order Comment: Speci men Type: BLOOD SPECIMENOrdering Facility: [facility] Address: [address] [place] [address] Performed By: #### 2 4323-8, LIPNF, 6-3 ####[facility] LABCLIA [id number] [place] [address] [place] Calcium [Mass/Vol] 9.6 mg/dL Normal 8.5-10.2 [facility] Comment on above: Order Comment: Speci men Type: BLOOD SPECIMENOrdering Facility: [facility] Address: [address] [place] [address] Performed By: #### 2 4323-8, LIPNF, 3015-3 ####[facility] LABCLIA [id number] [place] [address] [place] Chloride [Moles/Vol] 104 mmol/L Normal 98-107 [facility] Comment on above: Order Comment: Speci men Type: BLOOD SPECIMENOrdering Facility: [facility] Address: [address] [place] [address] Performed By: #### 2 4323-8, LIPNF, 6-3 ####[facility] LABCLIA [id number] [place] [id number] [place] CO2 [Moles/Vol] 23 mmol/L Normal 22-30 [facility] Comment on above: Order Comment: Speci men Type: BLOOD SPECIMENOrdering Facility: [facility] Address: [address] [place], [place] [address] Performed By: #### 2 4323-8, LIPNF, 3015-3 ####[facility] LABCLIA [id number] [place] [address] [place] Creatinine [Mass/Vol] 1.41 mg/dL High 0.58-0.96 [facility] Comment on above: Order Comment: Speci men Type: BLOOD SPECIMENOrdering Facility: [facility] Address: [address] [place] [address] Performed By: #### 2 4323-8, TIGIST, 3015-3 ####[facility] LABIA [id number] [place] [address] [place] Creatinine and Glomerular filtration rate.predicted panel (S/P/Bld) 37 mL/min/1.73m??? Low >=60 [facility] Comment on above: Order Comment: Magdalena men Type: BLOOD SPECIMENOrdering Facility: [facility] Address: [address] [place] [address] Result Comment: Enid mated Glomerular Filtration Rate (eGFR) is calculated using the 2020 CKD-EPI creatinine equation. This equation utilizes serum creatinine, sex, and age as parameters. The creatinine assay has traceable calibration to isotope dilution-mass spectrometry. Refer to KDIGO guidelines for clinical interpretation. In patients with unstable renal function, e.g. those with acute kidney injury, the eGFR may not accurately reflect actual GFR. Performed By: #### 2 4323-8, TIGIST, 3015-3 ####[facility] LABIA [id number] [place] [address] [place] Glucose [Mass/Vol] 98 mg/dL Normal 74-99 [facility] Comment on above: Order Comment: Speci men Type: BLOOD SPECIMENOrdering Facility: [facility] Address: [address] [place] [address] Result Comment: The [place] Diabetes Association (ADA) provides guidance for cutoff values for fasting glucose and random glucose. The ADA defines fasting as no caloric intake for at least 8 hours. Fasting plasma glucose results between 100 to 125 mg/dL indicate increased risk for diabetes (prediabetes). Fasting plasma glucose results greater than or equal to 126 mg/dL meet the criteria for diagnosis of diabetes. In the absence of unequivocal hyperglycemia, results should be confirmed by repeat testing. In a patient with classic symptoms of hyperglycemia or hyperglycemic crisis, random plasma glucose results greater than or equal to 200 mg/dL meet the criteria for diagnosis of diabetes. Reference: Standards of Medical Care in Diabetes 2016, [place] [employer]. Diabetes Care. 2016.39(Suppl 1). Performed By: #### 2 4323-8, LIPNF, 6-3 ####[facility] LABCLIA [id number] [place] [address] [place] Potassium [Moles/Vol] 4.1 mmol/L Normal 3.7-5.1 [facility] Comment on above: Order Comment: Speci men Type: BLOOD SPECIMENOrdering Facility: [facility] Address: [address] [place] [address] Performed By: #### 2 432-8, LIPNF, 3015-3 ####[facility] LABCLIA [id number] [place] [address] [place] Protein [Mass/Vol] 6.9 g/dL Normal 6.3-8.0 [facility] Comment on above: Order Comment: Speci men Type: BLOOD SPECIMENOrdering Facility: [facility] Address: [address] [place] [address] Performed By: #### 2 4323-8, LIPNF, 3015-3 ####[facility] LABCLIA [id number] [place] [address] [place] Sodium [Moles/Vol] 139 mmol/L Normal 136-144 [facility] Comment on above: Order Comment: Speci men Type: BLOOD SPECIMENOrdering Facility: [facility] Address: [address] [place] [address] Performed By: #### 2 4323-8, LIPNF, 6-3 ####[facility] LABCLIA [id number] [id number] [address] [place] Urea nitrogen [Mass/Vol] 19 mg/dL Normal 7-21 [facility] Comment on above: Order Comment: Speci men Type: BLOOD SPECIMENOrdering Facility: [facility] Address: [address] [place] [address] Performed By: #### 2 4323-8, LIPNF, 3016-3 ####[facility] LABCLIA [id number] [place] [address] [place] LIPID PANEL, NONFASTINGon Cholesterol [Mass/Vol] 183 mg/dL Normal <200 [facility] Comment on above: Order Comment: Speci men Type: BLOOD SPECIMENOrdering Facility: [facility] Address: [address] [place] [address] Result Comment: <200 mg/dL, Desirable 200-239 mg/dL, Borderline high >239 mg/dL, High Performed By: #### 2 4323-8, LIPNF, 3016-3 ####[facility] LABCLIA [id number] [place] [address] [place] HDL CHOLESTEROL, NF 59 mg/dL Normal >39 [facility] Comment on above: Order Comment: Speci men Type: BLOOD SPECIMENOrdering Facility: [facility] Address: [address] [place] [address] Result Comment: 40-5 9 mg/dL, Acceptable >59 mg/dL, High: Negative risk factor for coronary heart disease <40 mg/dL, Low: Positive risk factor for coronary heart disease Performed By: #### 2 4323-8, LIPNF, 3016-3 ####[facility] LABCLIA [id number] [place] [address] [place] LDL CHOLESTEROL, NF 100 mg/dL High <100 [facility] Comment on above: Order Comment: Speci men Type: BLOOD SPECIMENOrdering Facility: [facility] Address: [address] [place] [address] Result Comment: <100 mg/dL, Optimal 100-129 mg/dL, Near optimal/above optimal 130-159 mg/dL, Borderline high 160-189 mg/dL, High >189 mg/dL, Very high Secondary prevention optimal LDL Cholesterol levels are recommended to be < 70 mg/dL Performed By: #### 2 4323-8, LIPNF, 6-3 ####[facility] LABCLIA [id number] [place] [address] [place] LDL/HDL RATIO, NF 1.69 mg/dL Normal <2.54 [facility] Comment on above: Order Comment: Speci men Type: BLOOD SPECIMENOrdering Facility: [facility] Address: [address] [place] [address] Result Comment: Refe rence: 1. National Cholesterol Education Program ATP III Guideline At-A-Glance Quick Desk Reference: National Heart, Lung, and Blood [place]. National Institutes of Health. 2001: NIH Publication No. 01-3305. 2. An International Atherosclerosis Society position paper: global recommendations for the management of dyslipidemia: executive summary, Atherosclerosis. 2014: 232(2):410-413. Performed By: #### 2 4323-8, LIPNF, 3015-3 ####[facility] LABCLIA [id number] [place] [address] [place] NON HDL CHOL, NF 124 mg/dL Normal <130 [facility] Comment on above: Order Comment: Seai men Type: BLOOD SPECIMENOrdering Facility: [facility] Address: [address] [place] [address] Result Comment: <130 mg/dL, Optimal 130-159 mg/dL, Near optimal/above optimal 160-189 mg/dL, Borderline high 190-219 mg/dL, High >219 mg/dL, Very high Secondary prevention optimal non HDL Cholesterol levels are recommended to be <100 mg/dL Performed By: #### 2 4323-8, LIPNF, 3015-3 ####[facility] LABCLIA [id number] [place] [address] [place] T CHOL/HDL RATIO NF 3.10 mg/dL Normal <5.10 [facility] Comment on above: Order Comment: Speci men Type: BLOOD SPECIMENOrdering Facility: [facility] Address: [address] [place] [address] Performed By: #### 2 4323-8, LIPNF, 6-3 ####[facility] LABCLIA [id number] [place] [address] [place] TRIGLYCERIDES, NF 122 mg/dL Normal <150 [facility] Comment on above: Order Comment: Speci men Type: BLOOD SPECIMENOrdering Facility: [facility] Address: [address] [place] [address] Result Comment: <150 mg/dL, Normal 150-199 mg/dL, Borderline high 200-499 mg/dL, High >499 mg/dL, Very high Performed By: #### 2 4323-8, LIPNF, 6-3 ####[facility] LABCLIA [id number] [place] [address] [place] VLDL CHOLESTEROL, NF 24 mg/dL Normal <30 [facility] Comment on above: Order Comment: Speci men Type: BLOOD SPECIMENOrdering Facility: [facility] Address: [address] [place] [address] Performed By: #### 2 4323-8, LIPNF, 6-3 ####[facility] LABCLIA [id number] [place] [address] [place] TSH SerPl-aCncon 11-27-2024 TSH Qn 4.020 m[IU]/L Normal 0.270-4.200 [facility] Comment on above: Order Comment: Speci men Type: BLOOD SPECIMENOrdering Facility: [facility] Address: [address] [place] [address] Performed By: #### 2 4323-8, LIPNF, 6-3 ####[facility] LABCLIA [id number] [place] [address] [place] CBC W Auto Differential pane l (Bld)on 09-12-2024 Basophils (Bld) [#/Vol] 0.04 10*3/uL [facility] Basophils/100 WBC (Bld) 0.6 % [facility] Differential cell count method Nom (Bld) Auto [facility] Eosinophils (Bld) [#/Vol] 0.15 10*3/uL [facility] Eosinophils/100 WBC (Bld) 2.4 % [facility] Erythrocyte distribution width (RBC) [Ratio] 13.1 % 11.5 - 15.0 % [facility] Hematocrit (Bld) [Volume fraction] 40.9 % 36.0 - 46.0 % [facility] Hemoglobin (Bld) [Mass/Vol] 13.5 g/dL 11.5 - 15.5 g/dL [facility] Immature granulocytes (Bld) [#/Vol] [facility] Immature granulocytes/100 WBC (Bld) 0.3 % [facility] Lymphocytes (Bld) [#/Vol] 3.08 10*3/uL [facility] Lymphocytes/100 WBC (Bld) 49.0 % [facility] MCH (RBC) [Entitic mass] 29.8 pg 26.0 - 34.0 pg [facility] MCHC (RBC) [Mass/Vol] 33.0 g/dL 30.5 - 36.0 g/dL [facility] MCV (RBC) [Entitic vol] 90.3 fL 80.0 - 100.0 fL [facility] Monocytes (Bld) [#/Vol] 0.42 10*3/uL [facility] Monocytes/100 WBC (Bld) 6.7 % [facility] Neutrophils (Bld) [#/Vol] 2.58 10*3/uL [facility] Neutrophils/100 WBC (Bld) 41.0 % [facility] Nucleated RBC (Bld) [#/Vol] [facility] Nucleated RBC/100 WBC (Bld) [Ratio] 0.0 % /100 WBC [facility] Platelet mean volume (Bld) [Entitic vol] 11.6 fL 9.0 - 12.7 fL [facility] Platelets (Bld) [#/Vol] 203 10*3/uL [facility] RBC (Bld) [#/Vol] 4.53 10*6/uL 3.90 - 5.2 0 m/uL [facility] WBC (Bld) [#/Vol] 6.29 10*3/uL [facility] US PELVIS LTDon 04-24-2024 US PELVIS LTD * * *Final Report* * * DATE OF EXAM: Apr 24 2024 3:27PM LDU 1043 - US PELVIS LTD / PROCEDURE REASON: Neoplasm of uncertain behavior * * * * Physician Interpretation * * * * Ultrasound abdomen infraumbilical level, limited HISTORY: Palpable abnormality left lower quadrant infraumbilical level TECHNIQUE:Ultrasound abdomen infraumbilical level, limited Views obtained: Multiple sagittal and axial images.Images stored and permanent archive. Comparison: None RESULT/ impression: At the level scanning, there is significant acoustic shadowing arising from echogenic abnormality in the subcutaneous tissues. Leading consideration is a calcified lesion. If further imaging desired, then a limited CT would be the study of choice Revenue Field Auditor: [facility] Transcribe Date/Time: Apr 24 2024 4:01P Dictated by : NEEL RINCON MD This examination was interpreted and the report reviewed and electronically signed by: NEEL RINCON MD on Apr 24 2024 4:02PM EST [id number] Normal [facility] US Pelvis limitedon 04-24-20 24 * * *Final Report* * * DATE OF EXAM: Apr 24 2024 3:27PM LDU 1043 - US PELVIS LTD / PROCEDURE REASON: Neoplasm of uncertain behavior * * * * Physician Interpretation * * * * Ultrasound abdomen infraumbilical level, limited HISTORY: Palpable abnormality left lower quadrant infraumbilical level TECHNIQUE:Ultrasound abdomen infraumbilical level, limited Views obtained: Multiple sagittal and axial images.Images stored and permanent archive. Comparison: None RESULT/ impression: At the level scanning, there is significant acoustic shadowing arising from echogenic abnormality in the subcutaneous tissues. Leading consideration is a calcified lesion. If further imaging desired, then a limited CT would be the study of choice Revenue Field Auditor: [facility] Transcribe Date/Time: Apr 24 2024 4:01P Dictated by : NEEL RINCON MD This examination was interpreted and the report reviewed and electronically signed by: NEEL RINCON MD on Apr 24 2024 4:02PM EST [employer] [facility] Provider, Shanika Cohen [place] - 04/24/2024 * * *Final Report* * * DATE OF EXAM: Apr 24 2024 3:27PM LDU 1043 - US PELVIS LTD / PROCEDURE REASON: Neoplasm of uncertain behavior * * * * Physician Interpretation * * * * Ultrasound abdomen infraumbilical level, limited HISTORY: Palpable abnormality left lower quadrant infraumbilical level TECHNIQUE:Ultrasound abdomen infraumbilical level, limited Views obtained: Multiple sagittal and axial images.Images stored and permanent archive. Comparison: None RESULT/ impression: At the level scanning, there is significant acoustic shadowing arising from echogenic abnormality in the subcutaneous tissues. Leading consideration is a calcified lesion. If further imaging desired, then a limited CT would be the study of choice Revenue Field Auditor: [facility] Transcribe Date/Time: Apr 24 2024 4:01P Dictated by : NEEL RINCON MD This examination was interpreted and the report reviewed and electronically signed by: NEEL RINCON MD on Apr 24 2024 4:02PM [facility] Radiology Study observation (narrative) [facility] US Pelvis limitedOrdered By: [facility] Provider on 04-24-2024 [facility] CBC W Auto Differential pane l (Bld)on 03-05-2024 Basophils (Bld) [#/Vol] 0.03 10*3/uL <0.11 k/uL [facility] Basophils/100 WBC (Bld) 0.5 % [facility] Differential cell count method Nom (Bld) Auto [facility] Eosinophils (Bld) [#/Vol] 0.07 10*3/uL <0.46 k/uL [facility] Eosinophils/100 WBC (Bld) 1.2 % [facility] Erythrocyte distribution width (RBC) [Ratio] 13.1 % 11.5 - 15.0 % [facility] Hematocrit (Bld) [Volume fraction] 38.9 % 36.0 - 46.0 % [facility] Hemoglobin (Bld) [Mass/Vol] 12.9 g/dL 11.5 - 15.5 g/dL [facility] Immature granulocytes (Bld) [#/Vol] <0.10 k/uL [facility] Immature granulocytes/100 WBC (Bld) 0.2 % [facility] Lymphocytes (Bld) [#/Vol] 3.05 10*3/uL 1.00 - 4.00 k/uL [facility] Lymphocytes/100 WBC (Bld) 53.1 % [facility] MCH (RBC) [Entitic mass] 29.4 pg 26.0 - 34.0 pg [facility] MCHC (RBC) [Mass/Vol] 33.2 g/dL 30.5 - 36.0 g/dL [facility] MCV (RBC) [Entitic vol] 88.6 fL 80.0 - 100.0 fL [facility] Monocytes (Bld) [#/Vol] 0.50 10*3/uL <0.87 k/uL [facility] Monocytes/100 WBC (Bld) 8.7 % [facility] Neutrophils (Bld) [#/Vol] 2.08 10*3/uL 1.45 - 7.50 k/uL [facility] Neutrophils/100 WBC (Bld) 36.3 % [facility] Nucleated RBC (Bld) [#/Vol] <0.01 k/uL [facility] Nucleated RBC/100 WBC (Bld) [Ratio] 0.0 /100 WBC [facility] Platelet mean volume (Bld) [Entitic vol] 11.7 fL 9.0 - 12.7 fL [facility] Platelets (Bld) [#/Vol] 199 10*3/uL 150 - 400 k/uL [facility] RBC (Bld) [#/Vol] 4.39 10*6/uL 3.90 - 5.2 0 m/uL [facility] WBC (Bld) [#/Vol] 5.74 10*3/uL 3.70 - 11. 00 k/uL [facility] NM MYOCARDIAL PERFUSION MULT I SPECTon 11-11-2023 NM MYOCARDIAL PERFUSION MULTI SPECT Patient Info Name: JAYASHREE FERGUSON Age: 83 years : 1940 Gender: Female Ht: 152 cm Wt: 66 kg BSA: 1.70 m2 HR: 83 bpm BP: 160 / 108 mmHg Heart Rhythm: Sinus Rhythm Exam Date: 11/11/2023 8:15 AM Patient Status: Outpatient Any Known Allergies: Sulfa, PCN, Cipro Step Finisher: Yuliet Lares RT, R (N), TECHNICAL SUPPORT DIRECTOR Exam Type: NM MYOCARDIAL PERFUSION MULTI SPECT Study Info Indications - Chest pain/anginal equiv, intermediate CAD risk, treadmill candidate R06.02 - Shortness of breath 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 Normal pharmacologic stress SPECT myocardial perfusion imaging study. Study initially protocoled for modified Faheem however due to inability to achieve target heart rate/lower back pain, vasodilator was given. 2. No inducible ischemia identified. No convincing evidence of prior infarct. 3. Reduced exercise capacity (5 METS). Pt achieved peak heart rate of 113 bpm (82% APMHR). No ischemic changes noted with exercise/vasodilator. 4. Normal left ventricular systolic function, with calculated ejection fraction 69 %. 5. No prior studies are available for comparison. History/Risk Factors Hypertension: Yes Dyslipidemia: Yes Tobacco Use: Former Family History: Coronary Artery Disease History/Risk Factors SOB, chronic MORAN. Hx of Bronchiectasis and on therapy but dyspnea has worsened. Caffeine in Last 24 Hours: No Radiopharmaceutical: Tc-99m Sestamibi Administration Site: IV - left antecubital Administered By: Yuliet Lares R (N), RICHIE Camera Used: IndaBox D-SPECT Radiopharmaceutical: Tc-99m Sestamibi Administration Site: IV - left antecubital Administered By: Yuliet Lares R (N), RICHIE Camera Used: [employer] D-SPECT Image Protocol Protocol: Rest/Stress 1 Day Rest Radiopharmaceutical Dose: 6.7 mCi Imaging Date AND Time: 11/11/2023 9:30 AM Patient Position: upright Stress Radiopharmaceutical Dose: 20.1 mCi Imaging Date AND Time: 11/11/2023 10:51 AM Patient Position: upright and supine Total Radiation Dose: 6.5 mSv Injection Date AND Time: 11/11/2023 8:30 AM Injection Date AND Time: 11/11/2023 10:00 AM Procedure(s): Gated SPECT images acquired upright post Sestamibi injection at rest. Gated SPECT images acquired upright and non-gated SPECT images acquired supine post Sestamibi injection at peak stress. SPECT Results Perfusion Findings The stress/rest left ventricular cavity ratio (Transient Ischemic Dilatation ratio) = 0.92. At rest, there are mild perfusion defects involving the basal and mid inferior/inferolateral segments. On stress imaging these defects completely resolve and gated imaging shows normal wall thickening in these territories therefore suspect resting defects were related to attenuation artifact. Study Limitations: Inferior Wall / Diaphragmatic Attenuation Summed Difference Score: 0 Summed Stress Score: 0 Summed Rest Score: 0 Functional Results ---- Name Value Normal ---- Stress ---- Stress LV Ejection Fraction 70 % 55-70 Stress LV End Diastolic Volume Index 30.70 ml/m2 Stress LV End Systolic Volume Index 9.20 ml/m2 Nuclear Stress Myocardial Mass 95.00 g Stress LV End Diastolic Volume 50.00 ml Stress LV End Systolic Volume 15.00 ml Transient Ischemic Dilatation 0.92 Functional Results ---- Name Value Normal ---- Rest ---- Resting LV Ejection Fraction 69 % 55-70 Resting LV End Diastolic Volume Index 36.30 ml/m2 Resting LV End Systolic Volume Index 11.10 ml/m2 Resting LV End Diastolic Volume 59.00 ml Resting LV End Systolic Volume 18.00 ml Nuclear Rest Myocardial Mass 108.00 g Functional Findings Gated SPECT imaging reveals normal myocardial wall motion. Gated SPECT imaging reveals normal myocardial wall thickening. Resting left ventricular ejection fraction is normal , 69 %. Post stress left ventricular ejection fraction is hyperdynamic, 70 %. Report Signatures MPI SPECT Finalized by Sarkis Goncalves MD on 11/11/2023 11:59 AM Stress Finalized by Sarkis Goncalves MD on 11/11/2023 11:59 AM Stress ECG Details Protocol: MODBRUCE Total METS (more content not included)... Normal [facility] Comment on above: Order Comment: Injur y/Trauma or Illness?:Illness/Other How long have you had these symptoms (acute/chronic)?:Unknown Reason for exam?:cad, moran Type of Exam?:Unknown Additional signs and symptoms?:moran [place]2023 [place] [facility] Pulmonary Rehab Reports [address] [place] [address] Outpatient Resp Service H P MR#: [id number] Acct: [id number] Name: JAYASHREE FERGUSON Rep #: [id number] : 1940 83 From: Diego Barcenas DIGITAL MEDIA REPRESENTATIVE, SUPERVISOR CIGAR MAKING MACHINE, BS PCP: Dr. Herminio Whitman MD History of Present Illness General Arrival date:: 08/22/23 Arrival time:: 14:12 Date of Referral:: 08/03/23 Date of Evaluation: 08/22/23 Referring Physician: Karen Goncalves MD @ [facility] Primary Diagnosis: Bronchiectasis, persistent asthma History of Present Pulmonary Event mMRC Breathless Scale: When is the patient short of breath? Y/N Grade: Description of Breathlessness: 0 I only get breathless with strenuous exercise. 1 I get short of breath when hurrying on level ground or walking up a slight hill. 2 On level ground, I walk slower than people of the same age because of breathless, or have to stop for breath when walking at my own pace. y 3 I stop for breath after walking 100 yards or after a few minutes on level ground. n 4 I am too breathless to leave the house or I am breathless when dressing. Respiratory Problems: Yes Limited Range of Motion, Fatigue, Able to Speak in Full Sentences, Anxiety and Dyspnea with Activity; No Dyspnea at Rest or Cough with Secretions Medications Home Medications cholecalciferol (vitamin D3) 50 mcg (2,000 unit) capsule 2,000 unit PO 02/13/20 diltiazem HCl 120 mg capsule,extended release 24 hr 120 mg PO BID 02/13/20 levothyroxine 75 mcg tablet 75 mcg PO DAILY 02/13/20 aspirin 81 mg tablet,delayed release 81 mg PO DAILY 06/24/21 atorvastatin 10 mg tablet 10 mg PO DAILY 06/24/21 labetalol 100 mg tablet 100 mg PO DAILY 06/24/21 losartan 100 mg tablet 100 mg PO DAILY 06/24/21 sertraline 25 mg tablet 25 mg PO DAILY 06/24/21 doxycycline monohydrate 100 mg capsule 100 mg PO BID #14 CAPSULES 10/09/22 Allergies Allergies ciprofloxacin [From Cipro] Allergy (Verified 06/11/23 14:49) Other I had torn a tendon in my foot Penicillins Allergy (Verified 06/11/23 14:49) Rash Sulfa (Sulfonamide Antibiotics) Allergy (Verified 06/11/23 14:49) Anaphylaxis Opioids - Morphine Analogues Adverse Reaction (Verified 06/11/23 14:49) Vomiting Secretions Thick:: No Thin:: No Sleep Disorder Evaluation Hx of Sleep Apnea: No Do you snore loudly (louder than talking or can be heard through closed doors)?: No Do you often feel tired/ fatigued/ sleepy during daytime?: Yes Has anyone observed you stop breathing during sleep?: No History of Hypertension (for STOP score): No STOP Results: Negative Medical Utilization Medical Devices Do you use a peak flow meter at home?: No Do you use a spacer device with your inhalers?: No Medical Utilization Number of hospital visits in the last year?: 0 Number of emergency room visits in the last year?: 3 (related to her exacerbation) Do you see your physician on a regular schedule?: Yes How often?: PCP 6 months, 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 Advanced Directives Advanced Directives Power of Head Waitress: Yes Living Will: Yes Advance Directives Information Provided: No Advance Directives on File: Yes Past Medical History Covid-19 Screening Physicial Symptoms Fever: No Unexplained muscle aches: No Current respiratory symptoms: No Upper respiratory infections symptoms: No Gastro-intestinal symptoms: No Uip-Ozkf-Izokkn symptoms: No Other Clinical Concerns Has tested positive for COVID-19 in last 30 days: No Date of testin08/22/23 (Patient has been fully vaccinated with boosters) Exposure Risk Had contact w/person w/symptoms or Covid-19 (+) last 14 days: No Has High Risk Exposures ID'd by Health dept/Inf Control team: No Pertinent Comorbidities 65 years or older:: Yes Lives in Assisted Living facility:: No Has a chronic lung disease or moderate to severe asthma:: Yes Has a serious heart condition:: No Immunocompromised:: No Severely obese (Body Mass Index of 40 or higher):: No Diabetic:: No Has chronic kidney disease undergoing dialysis:: No Has liver disease:: No Medical History Medical History Basal cell carcinoma (BCC) Cardiac murmur CKD (chronic kidney disease) stage 3, GFR 30-59 ml/min Essential hypertension Hypothyroidism IBS (irritable bowel syndrome) Malignant melanoma Mixed hyperlipidemia Surgical History Surgical History History of arthroscopy of right knee History of lumbar spinal fusion History of lumbosacral spine surgery Significant Family History Family History Mother CAD (coronary artery disease) Myocardial infarction CVA (cerebral vascular accident) Current/ Previous Services Pulmonary Rehab:: No Social Histo (more content not included)... Normal [facility] [place]OP[place] 08-22-2023 [place] [facility] Pulmonary Rehab Reports [address] [place] [address] Outpatient Resp Services ITP MR#: [id number] Acct: [id number] Name: JAYASHREE FERGUSON Rep #: [id number] : 1940 83 From: Diego Barcenas DIGITAL MEDIA REPRESENTATIVE, SUPERVISOR CIGAR MAKING MACHINE, BS PCP: Dr. Herminio Whitman MD General Information2 General Information Admitting Diagnosis: Bronchiectasis Secondary Diagnosis: Persistent asthma without complications Personal Learning Style/Barriers Personal Learning Style:: Audio/Visual Barriers to Learning: Vision impaired Stage of change r/t lifestyle modifications: Prepared Educational Classes [place]: Living with Chronic Lung Disease: Initial Assessment, Breathing Retraining: Initial Assessment, Exercise: Initial Assessment and Energy Conservation: Initial Assessment Education/Goals Individual Counseling: Initial Assessment: Overweight/Obesity [place] Patient Goals: Increase muscle strength: Initial Assessment and Experience less dyspnea: Initial Assessment Exercise - Initial Assessment Visit Date of Eval: 08/22/23 Session Number:: 0 (Pre-program evaluation) Problem/Goals Problems: Deconditioning Goals:: [place]: 2-3/wk for 18 weeks [36 sessions] Physician Prescribed Exercise Modalities: Treadmill, Airdyne and NuStep Intensity: 60-80% of age predicted maximum heart rate reserve METs - Progression 0.5-1.0 weekly:: 3.0 Target HR:: 103 (THRR 83-103) Resting Blood Pressure: 136/88 Minimum SpO2 with exercise: 98 (Baseline at rest.) EKG Type: Sinus rhythm Plan Plan and Plan to Review:: Benefits of exercise, Core components of exercise, How to measure dyspnea level, How to monitor dyspnea level, Exercise intensity, Exercise safety guideline, Home exercise guidelines and Epifanio: 3-4/11-13 Home Exercise Mode: Walking Exercise - 30-Day Assessment Visit Date of Eval: 08/22/23 Session Number:: 0 (Pre-program evaluation) Physician Prescribed Exercise Target HR:: 103 (THRR 83-103) Resting Blood Pressure: 136/88 Minimum SpO2 with exercise: 98 (Baseline at rest.) EKG Type: Sinus rhythm Exercise - 60-Day Assessment Visit Date of Eval: 08/22/23 Session Number:: 0 (Pre-program evaluation) Physician Prescribed Exercise Target HR:: 103 (THRR 83-103) Resting Blood Pressure: 136/88 Minimum SpO2 with exercise: 98 (Baseline at rest.) EKG Type: Sinus rhythm Exercise - 90-Day Assessment Visit Date of Eval: 08/22/23 Session Number:: 0 (Pre-program evaluation) Physician Prescribed Exercise Target HR:: 103 (THRR 83-103) Resting Blood Pressure: 136/88 Minimum SpO2 with exercise: 98 (Baseline at rest.) EKG Type: Sinus rhythm Exercise - Final Assessment Visit Session Number:: 0 (Pre-program evaluation) Physician Prescribed Exercise Modalities: Treadmill, Airdyne and NuStep Resting Blood Pressure: 136/88 Minimum SpO2 with exercise: 98 (Baseline at rest.) EKG Type: Sinus rhythm Nutrition/Wt Mgmt - Initial Visit Date of Eval: 08/22/23 Session Number:: 0 (pre-program evaluation) Problems/Goals Problems: Overweight (BMI is 27) Weight Management Knowledge Deficit Management of:: Weight control w/Prednisone Admit Height:: 5 ft Admit Weight:: 142 lb Admit BMI:: 27.7 Intervention Referral to dietitian:: No Will attend diet classes:: No Intervention/Plan: Instruct on ideal BMI set weight loss goal w/patient Plan Nutrition Plan: Yes: Review BMI or WC identify target wt strategies for wt control, Yes: Nutrition education class: and Yes: Medication education class [Prednisone]: Nutrition/Wt Mgmt - 30-Day Visit Session Number:: 0 (pre-program evaluation) Weight Management Height: 5 ft Weight:: 142 lb BMI: 27.7 Nutrition/Wt Mgmt - 60-Day Visit Session Number:: 0 (pre-program evaluation) Weight Management Height: 5 ft Weight:: 142 lb BMI: 27.7 Nutrition/Wt Mgmt - 90-Day Visit Session Number:: 0 (pre-program evaluation) Weight Management Height: 5 ft Weight:: 142 lb BMI: 27.7 Nutrition/Wt Mgmt - Final Visit Session Number:: 0 (pre-program evaluation) Weight Management Height: 5 ft Weight:: 142 lb BMI: 27.7 Psychosocial - Initial Assess Visit Date of Eval: 08/22/23 Session Number:: 0 (pre-program evaluation) Problems/Goals History of Emotional Disorders: Anxious and Depression Psychosocial Goals: 1. Patient is free from overwhelming symtoms of depression (or anxiety, 2. Identifies personal stressors states the strategies for managing, 3. Identifies activities to decrease isolation and/or symptoms of, 4. Improved psychosocial coping skills., 5. Verbalizes coping strategies., 6. Adequate treatment of depression. and 7. Improved Q.O.L. Psychosocial Test Tool Used:: Pulmonary QOL and PHQ-9 Questionnaire Referred to MD for counseling:: No Referral to Behavioral Health PS - Interventions: Yes: Attend Stress Management Classes and No: Referral to Behavioral Health if PHQ-9 score >9:, (more content not included)... Normal [facility] Absolute lymphocyte countOrd ered By: Isaiah Fernandez on 06-11-2023 Lymphocytes Auto (Unsp spec) [#/Vol] 2.46 10*3/uL 0.83-4.51 [facility] Basic Metabolic Profile (BMP )on 06-11-2023 BUN/CRE 18.5 RATIO Normal 10-20 [facility] Comment on above: Performed By: #### L 100.0100, L500.2500 #### [facility] [address] [place], [address] CA,Total 9.6 mg/dL Normal 8.5-10.1 [facility] Comment on above: Performed By: #### L 100.0100, L500.2500 #### [facility] [address] [place], [address] Chloride [Moles/Vol] 109 mmol/L High 98-107 [facility] Comment on above: Performed By: #### L 100.0100, L500.2500 #### [facility] [address] [place], [address] CO2 [Moles/Vol] 27.0 mmol/L Normal 21.0-32.0 [facility] Comment on above: Performed By: #### L 100.0100, L500.2500 #### [facility] [facility] [address] [place], [address] Creatinine [Mass/Vol] 1.30 mg/dL High 0.55-1.02 [facility] Comment on above: Result Comment: The validity of the calculated GFR GFRAA in patients over 70 years has not been determined. Clinical correlation is essential. Performed By: #### L 100.0100, L500.2500 #### [facility] [address] [place], [address] ECRCL 23.55 ml/min Normal [facility] Comment on above: Performed By: #### L 100.0100, L500.2500 #### [facility] [address] [place], [address] EST GFR - AA 50 mL/min Low >60 [facility] Comment on above: Result Comment: Afri can Gambian GFR Calc Performed By: #### L 100.0100, L500.2500 #### [facility] [address] [place], [address] GAP 4 Low 5-15 [facility] Comment on above: Performed By: #### L 100.0100, L500.2500 #### [facility] [address] [place], [address] GFR/1.73 sq M.predicted among non-blacks MDRD (S/P/Bld) [Vol rate/Area] 42 mL/min/{1.73_m2} Low >60 [facility] Comment on above: Result Comment: Non- GFR Calc Performed By: #### L 100.0100, L500.2500 #### [facility] [address] [place], [address] Glucose [Mass/Vol] 90 mg/dL Normal 74-106 [facility] Comment on above: Performed By: #### L 100.0100, L500.2500 #### [facility] [address] [place], [address] Potassium [Moles/Vol] 3.8 mmol/L Normal 3.5-5.1 [facility] Comment on above: Performed By: #### L 100.0100, L500.2500 #### [facility] [address] [place], [address] Sodium [Moles/Vol] 140 mmol/L Normal 136-145 [facility] Comment on above: Performed By: #### L 100.0100, L500.2500 #### [facility] [address] [place], [address] Urea nitrogen [Mass/Vol] 24 mg/dL High 7-18 [facility] Comment on above: Performed By: #### L 100.0100, L500.2500 #### [facility] [address] [place], [address] Basophil percentageOrdered B y: Isaiah Fernandez on 06-11-2023 Basophils/100 WBC (Bld) 1.0 % 0-1 [facility] Chloride [Moles/Vol] 109 mmol/L 98-107 [facility] Eosinophils/100 WBC (Bld) 3.7 % 0-5 [facility] Glucose [Mass/Vol] 90 mg/dL 74-106 [facility] Neutrophils (Bld) [#/Vol] 1.9 10*3/uL 2.0-7.7 [facility] Neutrophils/100 WBC (Bld) 36.9 % 47-70 [facility] Potassium [Moles/Vol] 3.8 mmol/L 3.5-5.1 [facility] Sodium [Moles/Vol] 140 mmol/L 136-145 [facility] WBC (Bld) [#/Vol] 5.1 10*3/uL 4.4-11.0 [facility] Blood erythrocytes count (nu mber/volume)Ordered By: Isaiah Fernandez on 06-11-2023 RBC (Bld) [#/Vol] 4.15 10*6/uL 4.2-5.4 [facility] Blood hemoglobin measurement (mass/volume)Ordered By: Isaiah Fernandez on 06-11-2023 Hemoglobin (Bld) [Mass/Vol] 12.4 g/dL 12.0-15.0 [facility] Blood lymphocytes/100 leukoc ytesOrdered By: Isaiah Fernandez on 06-11-2023 Lymphocytes/100 WBC (Bld) 48.5 % 19-41 [facility] Blood monocytes/100 leukocyt esOrdered By: Isaiah Fernandez on 06-11-2023 Monocytes/100 WBC (Bld) 9.7 % 0-10 [facility] Blood platelet mean volumeOr dered By: Isaiah Fernandez on 06-11-2023 Platelet mean volume (Bld) [Entitic vol] 10.6 fL 6.2-12.0 [facility] CBC W/Diff, Automatedon 05-28-2022 Absolute Lymph 2.46 X10 3/uL Normal 0.83-4.51 [facility] Comment on above: Performed By: #### L 100.0100, L500.2500 #### [facility] [address] [place], [address] Absolute Neut 1.9 X10 3/uL Low 2.0-7.7 [facility] Comment on above: Performed By: #### L 100.0100, L500.2500 #### [facility] [address] [place], [address] Basophils/100 WBC (Bld) 1.0 % Normal 0-1 [facility] Comment on above: Performed By: #### L 100.0100, L500.2500 #### [facility] [address] [place], [address] Eosinophils/100 WBC (Bld) 3.7 % Normal 0-5 [facility] Comment on above: Performed By: #### L 100.0100, L500.2500 #### [facility] [address] [place], [address] Erythrocyte distribution width (RBC) [Ratio] 13.1 % Normal 11.6-14.6 [facility] Comment on above: Performed By: #### L 100.0100, L500.2500 #### [facility] [address] [place], [address] Hematocrit (Bld) [Volume fraction] 37.3 % Normal 37-47 [facility] Comment on above: Performed By: #### L 100.0100, L500.2500 #### [facility] [address] [place], [address] Hemoglobin (Bld) [Mass/Vol] 12.4 g/dL Normal 12.0-15.0 [facility] Comment on above: Performed By: #### L 100.0100, L500.2500 #### [facility] [address] [place], [address] IG% 0.200 Normal 0.0-0.9 [facility] Comment on above: Result Comment: IG% - Immature Granulocytes (promyelocytes, myelocytes and metamyelocytes) > 1% indicates that a LEFT SHIFT is Present. Performed By: #### L 100.0100, L500.2500 #### [facility] [address] [place], [address] Lymphocytes/100 WBC (Bld) 48.5 % High 19-41 [facility] Comment on above: Performed By: #### L 100.0100, L500.2500 #### [facility] [address] [place], [address] MCH (RBC) [Entitic mass] 29.9 pg Normal 27.0-32.0 [facility] Comment on above: Performed By: #### L 100.0100, L500.2500 #### [facility] [address] [place], [address] MCHC (RBC) [Mass/Vol] 33.2 g/dL Normal 32-36 [facility] Comment on above: Performed By: #### L 100.0100, L500.2500 #### [facility] [address] [place], [address] MCV (RBC) [Entitic vol] 89.9 fL Normal 81-99 [facility] Comment on above: Performed By: #### L 100.0100, L500.2500 #### [facility] [address] [place], [address] Monocytes/100 WBC (Bld) 9.7 % Normal 0-10 [facility] Comment on above: Performed By: #### L 100.0100, L500.2500 #### [facility] [address] [place], [address] Neutrophils/100 WBC (Bld) 36.9 % Low 47-70 [facility] Comment on above: Performed By: #### L 100.0100, L500.2500 #### [facility] [address] [place], [address] Nucleated RBC (Bld) [#/Vol] 0 10*3/uL Normal 0-5 [facility] Comment on above: Performed By: #### L 100.0100, L500.2500 #### [facility] [address] [place], [address] Platelet mean volume (Bld) [Entitic vol] 10.6 fL Normal 6.2-12.0 [facility] Comment on above: Performed By: #### L 100.0100, L500.2500 #### [facility] [address] [place], [address] Platelets (Bld) [#/Vol] 174 10*3/uL Normal 150-450 [facility] Comment on above: Performed By: #### L 100.0100, L500.2500 #### [facility] [address] [place], [address] RBC (Bld) [#/Vol] 4.15 10*6/uL Low 4.2-5.4 [facility] Comment on above: Performed By: #### L 100.0100, L500.2500 #### [facility] [address] [place], [address] RDW SD 43.2 fl Normal 35.1-43.9 [facility] Comment on above: Performed By: #### L 100.0100, L500.2500 #### [facility] [address] [place], [address] WBC (Bld) [#/Vol] 5.1 10*3/uL Normal 4.4-11.0 [facility] Comment on above: Performed By: #### L 100.0100, L500.2500 #### [facility] [address] [place], [address] D-Dimer Quantitative (DVT/PE )on 06-11-2023 D-DIMER QUANT 1.11 FEU/ug/m Invalid Interpretation Code 0.27-0.49 [facility] Comment on above: Order Comment: MARILIN Peralta PREVIOUS SPECIMEN REJECTED DUE TO QNS. 06/11/23 0854 Result Comment: D-Di seamus ELEVATED (>0.49): Additional studies and clinical assessments are indicated to conclude diagnosis of: Deep Vein Thrombosis (DVT) or Pulmonary Embolism (PE) CRITICAL VALUE VERIFIED. CALLED TO [facility] 06/11/23 1824 Magalie Albright. RESULTS READ BACK BY SAME . Performed By: #### L 300.8000 #### [facility] [address] [place], [address] Determination of erythrocyte mean corpuscular volume (MCV)Ordered By: Isaiah Fernandez on 06-11-2023 MCV (RBC) [Entitic vol] 89.9 fL 81-99 [facility] Emergency Department Summary on 06-11-2023 Emergency Department Summary [facility] Medical Records Department [address] [place] [address] Emergency Department Summary 06/11/23 MR#: [id number] Acct: [id number] Name: JAYASHREE FERGUSON Rep #: [id number] : 1940 83 From: Isaiah Fernandez MD PCP: Dr. Herminio Whitman MD Status:DEP ER Location: ED HPI History of Present Illness Chief Complaint: Wound Informant: patient Narrative Narrative: Patient presents with a sore red area on her left forearm. Patient had a Gammagard infusion done yesterday. She states the connector did come off and some of the liquid leaked on her skin but they did not have to replace the IV. They did comment that the IV was in a very small vein. But they had no problems infusing it. She had no pain or symptoms at the time. Many hours later and then now today she has developed some redness and soreness along the left volar forearm. It stops prior to getting up to the elbow. She states she otherwise feels great. She has no chest pain cough shortness of breath nausea vomiting or fevers. She has never had DVT or PE. She is not on any blood thinners. She has had approximately 16 of these infusions and has not had reactions before. She was seen at urgent care today. They started her on doxycycline but stated that she may need further evaluation. [facility] Medical History Basal cell carcinoma (BCC) Cardiac murmur CKD (chronic kidney disease) stage 3, GFR 30-59 ml/min Essential hypertension Hypothyroidism IBS (irritable bowel syndrome) Malignant melanoma Mixed hyperlipidemia Home Medications cholecalciferol (vitamin D3) 50 mcg (2,000 unit) capsule 2,000 unit PO 02/13/20 [History Last Taken Unknown] diltiazem HCl 120 mg capsule,extended release 24 hr 120 mg PO BID 02/13/20 [History Last Taken Unknown] levothyroxine 75 mcg tablet 75 mcg PO DAILY 02/13/20 [History Last Taken Unknown] aspirin 81 mg tablet,delayed release 81 mg PO DAILY 06/24/21 [History Last Taken Unknown] atorvastatin 10 mg tablet 10 mg PO DAILY 06/24/21 [History Last Taken Unknown] labetalol 100 mg tablet 100 mg PO DAILY 06/24/21 [History Last Taken Unknown] losartan 100 mg tablet 100 mg PO DAILY 06/24/21 [History Last Taken Unknown] sertraline 25 mg tablet 25 mg PO DAILY 06/24/21 [History Last Taken Unknown] doxycycline monohydrate 100 mg capsule 100 mg PO BID #14 CAPSULES 10/09/22 [Rx Last Taken Unknown] Allergy/AdvReac Type Severity Reaction Status Date / Time ciprofloxacin [From Cipro] Allergy Other Verified 06/11/23 14:49 Penicillins Allergy Rash Verified 06/11/23 14:49 Sulfa (Sulfonamide Allergy Anaphylaxis Verified 06/11/23 14:49 Antibiotics) Opioids - Morphine Analogues AdvReac Vomiting Verified 06/11/23 14:49 Family History Mother CAD (coronary artery disease) Myocardial infarction CVA (cerebral vascular accident) Surgical History History of arthroscopy of right knee History of lumbar spinal fusion History of lumbosacral spine surgery Social History Smoking Status: Former smoker alcohol intake: current details: occasional substance use type: does not use caffeine: Yes Type: tea Number of servings: 1 ROS ROS ED Constitutional Constitutional ED: Denies chills, fever(s), subjective or sweats ENT ENT ED: Denies rhinorrhea Cardiovascular Cardiovascular: Denies chest pain, palpitations or racing heartbeat Respiratory/Chest Respiratory/Chest: Denies cough or dyspnea Gastrointestinal Gastrointestinal: Denies nausea or vomiting Musculoskeletal Musculoskeletal: Denies myalgias Integumentary Reports rash Neurologic Neurologic: Denies headache(s), paresthesias or weakness Hematologic/Lymphatic Hematologic/Lymphatic: Denies easy bleeding, easy bruising or lymphadenopathy Allergic/Immunologic Allergic/Immunologic ED: Denies urticaria EXAM Physical Exam Narrative Exam Narrative: Patient awake alert no acute distress laying comfortably in bed. HEENT shows normal mucous membranes no trauma Neck is supple with normal range of motion no JVD. Heart is regular rate about 60 no murmur gallop or rub. Peripheral pulses including the involved extremity are normal. Lungs are clear bilaterally and breathing is easy and unlabored. Saturations are normal at 94% on room air showing no notable hypoxia. Abdomen is soft and nontender. Extremities are normal other than the left forearm. I can see the site where an IV was placed in the distal left volar forearm. Along the course of the vein for about 6 inches there is some slight darkening and redness of the skin. There is mild tenderness. But I do not feel any cord. No crepitance. It does (more content not included)... Normal [facility] Hematocrit Auto (Bld) [Volum e fraction]Ordered By: Isaiah Fernandez on 06-11-2023 Hematocrit (Bld) [Volume fraction] 37.3 % 37-47 [facility] - Chemistry and C hemistry - challengeOrdered By: Isaiah Fernandez on 06-11-2023 CO2 [Moles/Vol] 27.0 mmol/L 21.0-32.0 [facility] Urea nitrogen/Creatinine [Mass ratio] 18.5 mg/mg 10-20 [facility] - Hematology and Cell countsOrdered By: Isaiah Fernandez on 06-11-2023 Erythrocyte distribution width (RBC) [Entitic vol] 43.2 fL 35.1-43.9 [facility] Erythrocyte distribution width (RBC) [Ratio] 13.1 % 11.6-14.6 [facility] Immature granulocytes/100 WBC (Bld) 0.200 % 0.0-0.9 [facility] Comment on above: IG% - Immature Granu locytes (promyelocytes, myelocytes and metamyelocytes) > 1% indicates that a LEFT SHIFT is Present. MCH (RBC) [Entitic mass] 29.9 pg 27.0-32.0 [facility] Nucleated RBC/100 WBC (Bld) [Ratio] 0 % 0-5 [facility] MCHC Auto (RBC) [Mass/Vol]Or dered By: Isaiah Fernandez on 06-11-2023 MCHC (RBC) [Mass/Vol] 33.2 g/dL 32-36 [facility] No Panel InformationOrdered By: Isaiah Fernandez on 06-11-2023 D-Dimer Quantitative (PE/DVT) 1.11 FEU/ug/m 0.27-0.49 [facility] Comment on above: D-Dimer ELEVATED (>0 .49): Additional studies and clinicalassessments are indicated to conclude diagnosis of:Deep Vein Thrombosis (DVT) or Pulmonary Embolism (PE)CRITICAL VALUE VERIFIED. [facility] Mars Albright.RESULTS READ BACK BY SAME . Estimated Creatinine Clearance Calc 23.55 ml/min [facility] Estimated GFR (MDRD) Amer 50 mL/min >60 [facility] Comment on above: GFR Calc Estimated GFR (MDRD) Non-Af Amer 42 mL/min >60 [facility] Comment on above: Non- GFR Calc Platelets bldOrdered By: Zuhair suyapa Jim on 06-11-2023 Platelets (Bld) [#/Vol] 174 10*3/uL 150-450 [facility] Serum or plasma calcium melly urement (mass/volume)Ordered By: Isaiah Fernandez on 06-11-2023 Calcium [Mass/Vol] 9.6 mg/dL 8.5-10.1 [facility] Serum or plasma creatinine m easurement (mass/volume)Ordered By: Isaiah Fernandez on 06-11-2023 Creatinine [Mass/Vol] 1.30 mg/dL 0.55-1.02 [facility] Comment on above: The validity of the calculated GFR & GFRAA in patients over 70 years has not been determined. Clinical correlation is essential. Serum or plasma urea nitroge n measurement (mass/volume)Ordered By: Isaiah Fernandez on 06-11-2023 Urea nitrogen [Mass/Vol] 24 mg/dL 7-18 [facility] Thin prep Papanicolaou smear with manual screeningOrdered By: Isaiah Fernandez on 06-11-2023 Thin prep Papanicolaou smear with manual screening 4 5-15 [facility] Venous Duplex US, Unilateral on 06-11-2023 Venous Duplex US, Unilateral [facility] [address] [place] [address] Venous Duplex US, Unilateral 06/12/23 1107 MR#: [id number] Acct: [id number] Name: JAYASHREE FERGUSON Rep #: [id number] : 1940 83 From: Jeimy Quezada MD Attending Dr: Status: DEP ER Ordering Dr: Isaiah Fernandez MD Date: 06/11/23 Location: ED Sex: F C Admitted: Reason For Study: Lt Arm Pain Right Proximal Left Proximal Right subclavian vein is spontaneous, widely Left jugular vein is spontaneous, widely patent, phasic, with no intraluminal patent, phasic, with no intraluminal echogenicity noted. echogenicity noted. Left subclavian vein is spontaneous, widely patent, phasic, with no intraluminal echogenicity noted. Left Arm Left axillary vein is spontaneous, patent, phasic, competent, compressible and demonstrates augmentation. Left brachial vein is compressible. Left cephalic vein is compressible. Left basilic vein is compressible. Left Lower Arm Left radial vein is compressible. Left ulnar vein is compressible. VL/Venous Duplex US, Unilateral Interpretation Summary No evidence for acute deep venous thrombosis[left] upper extremity with patent and compressible cephalic and basilic veins. Normal flow patterns right subclavian vein Ordering Physician: Isaiah Fernandez Performed By: Heladio Zelaya RVT ??? 06/13/23 0439 Date Jeimy Quezada MD CC: Dr. Isaiah Fernandez MD; Dr. Herminio Whitman MD Date Dictated: 06/12/23 1107 Date Transcribed: 06/13/23438 Revenue Field Auditor: Signed Normal [facility] STREP A MOLECULAR (POC)on Procedural Control Valid [facility] Strep A (POCT) Negative Negative [facility] XR CHEST 2V FRONTAL/LATon [facility] XR Chest PA and Lateralon IMPRESSION: No acute radiographic abnormality. Revenue Field Auditor: PSCB Transcribe Date/Time: May 05 2023 11:47A Dictated by : ANISH ROBERTS MD This examination was interpreted and the report reviewed and electronically signed by: ANISH ROBERTS MD on May 05 2023 11:49AM [facility] DIVISION OF RADIOLOGY * * *Final Report* * * DATE OF EXAM: May 05 2023 11:16AM WOX 5291 - XR CHEST 2V FRONTAL/LAT / PROCEDURE REASON: Bronchiectasis with acute exacerbation (HCC) * * * * Physician Interpretation * * * * EXAMINATION: CHEST RADIOGRAPH (2 VIEW FRONTAL & LATERAL) CLINICAL HISTORY: Bronchiectasis with acute exacerbation (HCC) MQ: XC2_6 EXAM DATE/TIME: 05/05/2023 11:16 AM COMPARISON: 08/23/2022 RESULT: Lines, tubes, and devices: None. Lungs and pleura: No consolidation. No lung mass. No pleural effusion. No pneumothorax. Cardiomediastinal silhouette: Normal cardiomediastinal silhouette. Bones and soft tissues: Diffuse osteopenia and degenerative change. DIVISION OF RADIOLOGY Provider, [facility] - 05/05/2023 * * *Final Report* * * DATE OF EXAM: May 05 2023 11:16AM WOX 5291 - XR CHEST 2V FRONTAL/LAT / PROCEDURE REASON: Bronchiectasis with acute exacerbation (HCC) * * * * Physician Interpretation * * * * EXAMINATION: CHEST RADIOGRAPH (2 VIEW FRONTAL & LATERAL) CLINICAL HISTORY: Bronchiectasis with acute exacerbation (HCC) MQ: XC2_6 EXAM DATE/TIME: 05/05/2023 11:16 AM COMPARISON: 08/23/2022 RESULT: Lines, tubes, and devices: None. Lungs and pleura: No consolidation. No lung mass. No pleural effusion. No pneumothorax. Cardiomediastinal silhouette: Normal cardiomediastinal silhouette. Bones and soft tissues: Diffuse osteopenia and degenerative change. IMPRESSION IMPRESSION: No acute radiographic abnormality. Revenue Field Auditor: SKYLAR Transcribe Date/Time: May 05 2023 11:47A Dictated by : ANISH ROBERTS MD This examination was interpreted and the report reviewed and electronically signed by: ANISH ROBERTS MD on May 05 2023 11:49AM EST [facility] Radiology Study observation (narrative) [facility] XR Chest PA and LateralOrder ed By: Cc Provider on 05-05-2023 [facility] XR Chest PA and Lateralon IMPRESSION: No acute radiographic abnormality. Revenue Field Auditor: SKYLAR Transcribe Date/Time: Aug 23 2022 4:49P Dictated by : ANISH ROBERTS MD This examination was interpreted and the report reviewed and electronically signed by: ANISH ROBERTS MD on Aug 23 2022 4:50PM [facility] DIVISION OF RADIOLOGY * * *Final Report* * * DATE OF EXAM: Aug 23 2022 3:41PM WOX 5291 - XR CHEST 2V FRONTAL/LAT / PROCEDURE REASON: Chest discomfort * * * * Physician Interpretation * * * * EXAMINATION: CHEST RADIOGRAPH (2 VIEW FRONTAL & LATERAL) CLINICAL HISTORY: Chest discomfort MQ: XC2_6 EXAM DATE/TIME: 08/23/2022 3:41 PM COMPARISON: 01/12/2022 RESULT: Lines, tubes, and devices: None. Lungs and pleura: No consolidation. No lung mass. No pleural effusion. No pneumothorax. Cardiomediastinal silhouette: Normal cardiomediastinal silhouette. Bones and soft tissues: Unremarkable. DIVISION OF RADIOLOGY Provider, Shanika Santillan - 08/23/2022 * * *Final Report* * * DATE OF EXAM: Aug 23 2022 3:41PM WOX 5291 - XR CHEST 2V FRONTAL/LAT / PROCEDURE REASON: Chest discomfort * * * * Physician Interpretation * * * * EXAMINATION: CHEST RADIOGRAPH (2 VIEW FRONTAL & LATERAL) CLINICAL HISTORY: Chest discomfort MQ: XC2_6 EXAM DATE/TIME: 08/23/2022 3:41 PM COMPARISON: 01/12/2022 RESULT: Lines, tubes, and devices: None. Lungs and pleura: No consolidation. No lung mass. No pleural effusion. No pneumothorax. Cardiomediastinal silhouette: Normal cardiomediastinal silhouette. Bones and soft tissues: Unremarkable. IMPRESSION IMPRESSION: No acute radiographic abnormality. Revenue Field Auditor: PSCB Transcribe Date/Time: Aug 23 2022 4:49P Dictated by : ANISH ROBERTS MD This examination was interpreted and the report reviewed and electronically signed by: ANISH ROBERTS MD on Aug 23 2022 4:50PM EST [facility] Radiology Study observation (narrative) [facility] XR Chest PA and LateralOrder ed By: [facility] Provider on 08-23-2022 [facility] COMPLETE PFTon 02-12-2022 COMPLETE PFT COMPLETE PFT INTERPRETATION I have independently reviewed the data and tracings from the patient's pulmonary function tests from 02/11/2022 Methacholine Challenge There was not evidence of bronchial responsiveness. This is a negative methacholine challenge test. Flow volume loops were normal. Spirometry Spirometry is within normal limits however FEV1/FVC was reduced but not statistically. Inspiratory flow-volume loop is normal. Lung Volumes Lung volumes were consistent with mild restriction. Diffusing Capacity There is no reduction in diffusing capacity. Alba Hu MD 02/12/22 Alba Hu MD 02/12/22 Finalized by: ALBA HU on TueFeb 12, 2022 5:29:16 PM EDT [facility] Comment on above: Order Comment: Dawit metry, volumes, DLCO with Methacholine CT CHEST HIGH RESOLUTION WIT HOUT CONTRAST WITH COMPLETE SCANon 02-11-2022 CT CHEST HIGH RESOLUTION WITHOUT CONTRAST WITH COMPLETE SCAN EXAMINATION: HIGH RESOLUTION CT OF THE CHEST 02/11/2022 TECHNIQUE: High resolution CT images of the chest were performed in the supine inspiration, supine expiration, and prone inspiration positions without intravenous contrast. Standard CT of chest is also provided for review along with multiplanar reformats. Dose modulation, iterative reconstruction, and/or weight based adjustment of the mA/kV was utilized to reduce the radiation dose to as low as reasonably achievable. COMPARISON: None. HISTORY: ORDERING SYSTEM PROVIDED HISTORY: bronchiectasis, SOB, and cough; TECHNOLOGIST PROVIDED HISTORY: Illness/Other Acuity: Chronic Reason for Exam: bronchiectasis Type of Encounter: Unknown Additional signs and symptoms: cough ORDERING SYSTEM PROVIDED DIAGNOSIS CODES: J47.9 Bronchiectasis without complication (HCC) R05.9 Cough R06.00 MORAN (dyspnea on exertion) FINDINGS: Chest Wall and Thoracic Inlet: No axillary or supraclavicular lymphadenopathy. There is a 0.7 cm left thyroid nodule. Mediastinum and Juju: No mediastinal or hilar lymphadenopathy. Minimal atherosclerotic calcifications of the thoracic aorta which is normal in caliber. Heart and Pericardium: The heart is normal in size. Coronary artery calcifications. No pericardial effusion. Lungs/Pleura: There are scattered areas of linear atelectasis/scarring. Minimal peripheral ground-glass opacities are seen in the left upper lobe (series 5, image 25). There is minimal bilateral lower lobe bronchiectasis and bronchial wall thickening. There are two left lower lobe pulmonary nodules, the larger of which measures up to 0.4 cm (series 5, image 39). Right lower lobe calcified granuloma. No pleural effusion. No significant air trapping on expiratory images. Upper Abdomen: Calcified splenic granulomas. Tiny hiatal hernia. Bones: No suspicious osseous findings. Multilevel degenerative changes of the spine. Minimal retrolisthesis of L1 on L2 and of L2 on L3. IMPRESSION: 1. Scattered areas of linear atelectasis/scarring with minimal bilateral lower lobe bronchiectasis and bronchial wall thickening. No significant air trapping on expiratory images. 2. There are minimal peripheral ground-glass opacities of the left upper lobe, favored to represent an infectious or inflammatory process. 3. There are two left lower lobe pulmonary nodules measuring up to 0.4 cm. See recommendations below. RECOMMENDATIONS: Per Fleischner Society guidelines: Multiple pulmonary nodules size: <6 mm 1. low risk patients: no routine follow-up 2. High risk patients: optional CT at 12 months No follow-up is required for the 0.7 cm thyroid nodule. Workstation ID: [id number] Dictated by: GABY OAKES on TueFeb 11, 2022 11:33:26 AM EDT Transcribed by: GABY OAKES on TueFeb 11, 2022 11:33:26 AM EDT Finalized by: GABY OAKES on TueFeb 11, 2022 11:33:26 AM EDT [facility] Comment on above: Order Comment: Injur y/Trauma or Illness?:Illness/Other How long have you had these symptoms (acute/chronic)?:Chronic Reason for exam?:bronchiectasis Type of Exam?:Unknown Additional signs and symptoms?:cough XR Chest PA and Lateralon IMPRESSION: No acute radiographic abnormality. Revenue Field Auditor: SKYLAR Transcribe Date/Time: Jan 12 2022 2:28P Dictated by : LILIBETH STARR MD This examination was interpreted and the report reviewed and electronically signed by: LILIBETH STARR MD on Jan 12 2022 2:29PM [facility] DIVISION OF RADIOLOGY * * *Final Report* * * DATE OF EXAM: Jan 12 2022 2:21PM WOX [id number] - XR CHEST 2V FRONTAL/LAT / PROCEDURE REASON: Bronchitis * * * * Physician Interpretation * * * * EXAMINATION: CHEST RADIOGRAPH (2 VIEW FRONTAL & LATERAL) CLINICAL HISTORY: Bronchitis MQ: XC2_6 EXAM DATE/TIME: 01/12/2022 2:21 PM COMPARISON: Chest x-ray dated July 05, 2019 RESULT: Lines, tubes, and devices: None. Lungs and pleura: Scattered mild linear scarring appears stable. No consolidation. No lung mass. No pleural effusion. No pneumothorax. Cardiomediastinal silhouette: Normal cardiomediastinal silhouette. Bones and soft tissues: Degenerative changes in the spine. Postsurgical changes partially visualized in the lower lumbar spine. DIVISION OF RADIOLOGY Provider, Delicia Vicki correa [place] - 01/12/2022 * * *Final Report* * * DATE OF EXAM: Jan 12 2022 2:21PM WOX [id number] - XR CHEST 2V FRONTAL/LAT / PROCEDURE REASON: Bronchitis * * * * Physician Interpretation * * * * EXAMINATION: CHEST RADIOGRAPH (2 VIEW FRONTAL & LATERAL) CLINICAL HISTORY: Bronchitis MQ: XC2_6 EXAM DATE/TIME: 01/12/2022 2:21 PM COMPARISON: Chest x-ray dated July 05, 2019 RESULT: Lines, tubes, and devices: None. Lungs and pleura: Scattered mild linear scarring appears stable. No consolidation. No lung mass. No pleural effusion. No pneumothorax. Cardiomediastinal silhouette: Normal cardiomediastinal silhouette. Bones and soft tissues: Degenerative changes in the spine. Postsurgical changes partially visualized in the lower lumbar spine. IMPRESSION IMPRESSION: No acute radiographic abnormality. Revenue Field Auditor: SKYLAR Transcribe Date/Time: Jan 12 2022 2:28P Dictated by : LILIBETH STARR MD This examination was interpreted and the report reviewed and electronically signed by: LILIBETH STARR MD on Jan 12 2022 2:29PM [facility] Radiology Study observation (narrative) [facility] XR Chest PA and LateralOrder ed By: [facility] Provider on 01-12-2022 [facility] CBCon 12-09-2019 Erythrocyte distribution width (RBC) [Entitic vol] 13.0 % 11.6 - 14.8 % [facility] Hematocrit (Bld) [Volume fraction] 36.3 % 36 - 46 % [facility] Hemoglobin (Bld) [Mass/Vol] 11.8 g/dL Low 12 - 16 g/dL [facility] Interpretation and review of laboratory results Abnormal [facility] MCH (RBC) [Entitic mass] 30.3 pg 26 - 34 pg [facility] MCHC (RBC) [Mass/Vol] 32.5 g/dL 31 - 37 g/dL [facility] MCV (RBC) [Entitic vol] 93.1 fL 80 - 100 fL [facility] Nucleated RBC (Bld) [#/Vol] 0.00 10*3/uL [facility] Nucleated RBC/100 WBC (Bld) [Ratio] 0.0 % [facility] Platelet mean volume (Bld) [Entitic vol] 11.1 fL 9 - 15.5 fL [facility] Platelets (Bld) [#/Vol] 197 10*3/uL [facility] RBC (Bld) [#/Vol] 3.90 10*6/uL [facility] WBC (Bld) [#/Vol] 10.23 10*3/uL [facility] Basic Metabolic Panelon 11-28 Anion gap [Moles/Vol] 15 mmol/L 10 - 2 0 mmol/L [facility] Calcium [Mass/Vol] 9.8 mg/dL 8.4 - 10. 2 mg/dL [facility] Chloride [Moles/Vol] 104 mmol/L 98 - 10 8 mmol/L [facility] Creatinine [Mass/Vol] 0.97 mg/dL 0.6 - 1.2 mg/dL [facility] GFR/1.73 sq M predicted among non-blacks MDRD (S/P/Bld) [Vol rate/Area] The eGFR should be used for monitoring renal function only and not for medication dosing. [facility] GFR/1.73 sq M.predicted CKD-EPI (S/P/Bld) [Vol rate/Area] 56 Low >=60 mL/min/1.73 m2 [facility] Glucose [Mass/Vol] 124 mg/dL High 65 - 99 mg/dL [facility] HCO3 [Moles/Vol] 22 mmol/L 21 - 32 mmol/L [facility] Interpretation and review of laboratory results Abnormal [facility] Potassium [Moles/Vol] 4.4 mmol/L 3.5 - 5.1 mmol/L [facility] Sodium [Moles/Vol] 137 mmol/L 135 - 145 mmol/L [facility] Urea nitrogen [Mass/Vol] 16 mg/dL 8 - 25 mg/dL [facility] Urea nitrogen/Creatinine [Mass ratio] 16.5 mg/mg [facility] CBCon 12-08-2019 Erythrocyte distribution width (RBC) [Entitic vol] 12.7 % 11.6 - 14.8 % [facility] Hematocrit (Bld) [Volume fraction] 35.5 % Low 36 - 46 % [facility] Hemoglobin (Bld) [Mass/Vol] 11.9 g/dL Low 12 - 16 g/dL [facility] Interpretation and review of laboratory results Abnormal [facility] MCH (RBC) [Entitic mass] 30.3 pg 26 - 34 pg [facility] MCHC (RBC) [Mass/Vol] 33.5 g/dL 31 - 37 g/dL [facility] MCV (RBC) [Entitic vol] 90.3 fL 80 - 100 fL [facility] Nucleated RBC (Bld) [#/Vol] 0.00 10*3/uL [facility] Nucleated RBC/100 WBC (Bld) [Ratio] 0.0 % [facility] Platelet mean volume (Bld) [Entitic vol] 10.7 fL 9 - 15.5 fL [facility] Platelets (Bld) [#/Vol] 211 10*3/uL [facility] RBC (Bld) [#/Vol] 3.93 10*6/uL [facility] WBC (Bld) [#/Vol] 10.67 10*3/uL [facility] POC Glucoseon 12-07-2019 Glucose [Mass/Vol] 118 mg/dL High 65 - 99 mg/dL [facility] Interpretation and review of laboratory results Abnormal [facility] Glucose [Mass/Vol] 99 mg/dL 65 - 99 mg/dL [facility] Interpretation and review of laboratory results Normal [facility] XR Fluoroscopy Timeon 2019 This is an auto finalized result. Please refer to patient chart for further information. [facility] SCAN OTHER ORDERSon 12-06-19 Ordered by an unspecified provider. [facility] CBCon 11-23-2019 Erythrocyte distribution width (RBC) [Entitic vol] 13.1 % 11.6 - 14.8 % [facility] Hematocrit (Bld) [Volume fraction] 40.4 % 36 - 46 % [facility] Hemoglobin (Bld) [Mass/Vol] 13.3 g/dL 12 - 16 g/dL [facility] MCH (RBC) [Entitic mass] 30.1 pg 26 - 34 pg [facility] MCHC (RBC) [Mass/Vol] 32.9 g/dL 31 - 37 g/dL [facility] MCV (RBC) [Entitic vol] 91.4 fL 80 - 100 fL [facility] Nucleated RBC (Bld) [#/Vol] 0.00 10*3/uL [facility] Nucleated RBC/100 WBC (Bld) [Ratio] 0.0 % [facility] Platelet mean volume (Bld) [Entitic vol] 11.1 fL 9 - 15.5 fL [facility] Platelets (Bld) [#/Vol] 248 10*3/uL [facility] RBC (Bld) [#/Vol] 4.42 10*6/uL [facility] WBC (Bld) [#/Vol] 7.34 10*3/uL [facility] Creatinine, Serumon 11-23-20 19 Creatinine [Mass/Vol] 1.03 mg/dL 0.6 - 1.2 mg/dL [facility] GFR/1.73 sq M predicted among non-blacks MDRD (S/P/Bld) [Vol rate/Area] The eGFR should be used for monitoring renal function only and not for medication dosing. [facility] GFR/1.73 sq M.predicted CKD-EPI (S/P/Bld) [Vol rate/Area] 52 Low >=60 mL/min/1.73 m2 [facility] Interpretation and review of laboratory results Abnormal [facility] Glucoseon 11-23-2019 Glucose [Mass/Vol] 89 mg/dL 65 - 99 mg/dL [facility] Otheron 11-23-2019 Interpretation and review of laboratory results Normal [facility] Potassium Levelon 11-23-2019 Potassium [Moles/Vol] 4.8 mmol/L 3.5 - 5.1 mmol/L [facility] URINALYSISon 11-23-2019 Bacteria Auto Ql (U) None Seen None Se en /hpf [facility] Bilirubin Ql (U) Negative Negative [facility] Clarity Refractometry automated (U) Hazy Abnormal Clear [facility] Color (U) Yellow Colorless, Yellow [facility] Crystals.amorphous Computer assisted (U) [#/Area] Rare None Seen, Rare /hpf [facility] Epithelial cells.squamous Auto (Urine sed) [#/Area] <1 [facility] Glucose Auto test strip (U) [Mass/Vol] Negative Negative mg/dL [facility] Hemoglobin Auto test strip Ql (U) Negative Negative [facility] Hyaline casts Auto (Urine sed) [#/Area] 0-2 0 - 2 /lpf [facility] Interpretation and review of laboratory results Abnormal [facility] Ketones (U) [Mass/Vol] Negative Negative mg/dL [facility] Leukocyte esterase Auto test strip Ql (U) Trace Abnormal Negative [facility] Mucus Auto (Urine sed) [#/Area] Rare None Seen, Rare /lpf [facility] Nitrite Auto test strip Ql (U) Negative Negative [facility] pH (U) 6.0 [pH] [facility] Protein (U) [Mass/Vol] Negative Negative mg/dL [facility] RBC Auto (Urine sed) [#/Area] <1 [facility] Specific gravity (U) [Rel density] 1.016 [facility] Transitional cells Computer assisted (U) [#/Area] <1 [facility] Urobilinogen (U) [Mass/Vol] <2.0 <2.0 mg/dL [facility] WBC Auto (Urine sed) [#/Area] 2 [facility] Microscopic examination is performed on all urinalysis samples and only positive findings are reported. The test for blood on the chemical analytic portion of urinalysis may also be positive due to hemoglobinuria and myoglobinuria and if red blood cells are present they are quantified by microscopic examination. [facility] CBCon 09-26-2019 Erythrocyte distribution width (RBC) [Entitic vol] 13.2 % 11.6 - 14.8 % [facility] Hematocrit (Bld) [Volume fraction] 38.8 % 36 - 46 % [facility] Hemoglobin (Bld) [Mass/Vol] 13.0 g/dL 12 - 16 g/dL [facility] MCH (RBC) [Entitic mass] 30.3 pg 26 - 34 pg [facility] MCHC (RBC) [Mass/Vol] 33.5 g/dL 31 - 37 g/dL [facility] MCV (RBC) [Entitic vol] 90.4 fL 80 - 100 fL [facility] Nucleated RBC (Bld) [#/Vol] 0.00 10*3/uL [facility] Nucleated RBC/100 WBC (Bld) [Ratio] 0.0 % [facility] Platelet mean volume (Bld) [Entitic vol] 11.0 fL 9 - 15.5 fL [facility] Platelets (Bld) [#/Vol] 244 10*3/uL [facility] RBC (Bld) [#/Vol] 4.29 10*6/uL [facility] WBC (Bld) [#/Vol] 7.53 10*3/uL [facility] Creatinine, serumon 09-26-20 19 Creatinine [Mass/Vol] 1.04 mg/dL 0.6 - 1.2 mg/dL [facility] GFR/1.73 sq M predicted among non-blacks MDRD (S/P/Bld) [Vol rate/Area] The eGFR should be used for monitoring renal function only and not for medication dosing. [facility] GFR/1.73 sq M.predicted CKD-EPI (S/P/Bld) [Vol rate/Area] 51 Low >=60 mL/min/1.73 m2 [facility] ECG 12-LEADon 09-26-2019 Atrial Rate 65 BPM [facility] P Custer 50 degrees [facility] P-R Interval 192 ms [facility] Q-T Interval 392 ms [facility] QRS Duration 84 ms [facility] QTC Calculation (Bezet) 407 ms [facility] R Custer 24 degrees [facility] T Custer 51 degrees [facility] Ventricular Rate 65 BPM [facility] th Normal sinus rhythm Normal ECG Confirmed by KALPESH RAMOS MD ([id number]) on 09/26/2019 1:17:55 PM [facility] Glucoseon 09-26-2019 Glucose [Mass/Vol] 101 mg/dL High 65 - 99 mg/dL [facility] Otheron 09-26-2019 Interpretation and review of laboratory results Abnormal [facility] Potassium Levelon 09-26-2019 Interpretation and review of laboratory results Normal [facility] Potassium [Moles/Vol] 4.3 mmol/L 3.5 - 5.1 mmol/L [facility] Basic Metabolic Panelon Anion gap 16 mmol/L Invalid Interpretation Code 10 - 20 mmol/L [facility] Bicarbonate (HCO3) 22 mmol/L Invalid Interpretation Code 21 - 32 mmol/L [facility] BUN/Creatinine Ratio 20.0 mg/mg Invalid Interpretation Code 10.0 - 20.0 [facility] Calcium 9.3 mg/dL Invalid Interpretation Code 8.4 - 10.2 mg/dL [facility] Chloride 108 mmol/L Invalid Interpretation Code 98 - 108 mmol/L [facility] Creatinine 1.05 mg/dL Invalid Interpretation Code 0.6 - 1.2 mg/dL [facility] eGFR (non-black) 51 mL/min/{1.73_m2} Low >=60 [facility] eGFR (non-black) The eGFR should be used for monitoring renal function only and not for medication dosing. Invalid Interpretation Code [facility] Glucose mass conc 150 mg/dL High 65 - 99 mg/dL [facility] Interpretation and review of laboratory results Abnormal Invalid Interpretation Code [facility] Potassium molar conc 4.9 mmol/L Invalid Interpretation Code 3.5 - 5.1 mmol/L [facility] Sodium 141 mmol/L Invalid Interpretation Code 135 - 145 mmol/L [facility] Urea nitrogen 21 mg/dL Invalid Interpretation Code 8 - 25 mg/dL [facility] CBCon 12-01-2017 Erythrocyte distribution width Auto Entitic volume (RBC) 12.9 % Invalid Interpretation Code 11.6 - 14.8 % [facility] Erythrocytes (RBC) 4.10 M/mcL Invalid Interpretation Code 4.00 - 5.20 [facility] Hematocrit (HCT) 37.6 % Invalid Interpretation Code 36 - 46 % [facility] Hemoglobin mass conc (Bld) 12.4 g/dL Invalid Interpretation Code 12 - 16 g/dL [facility] Interpretation and review of laboratory results Normal Invalid Interpretation Code [facility] MCH 30.2 pg Invalid Interpretation Code 26 - 34 pg [facility] MCHC mass conc (RBC) 33.0 g/dL Invalid Interpretation Code 31 - 37 g/dL [facility] MCV 91.7 fL Invalid Interpretation Code 80 - 100 fL [facility] Nucleated erythrocytes 0.00 K/mcL Invalid Interpretation Code 0.00 - 0.00 [facility] Nucleated erythrocytes/100 erythrocytes 0.0 % Invalid Interpretation Code [facility] Platelet mean volume (PMV) 10.6 fL Invalid Interpretation Code 9 - 15.5 fL [facility] Platelets 197 K/mcL Invalid Interpretation Code 150 - 400 [facility] WBC (Leukocytes) 10.09 K/mcL Invalid Interpretation Code 4.50 - 11.00 [facility] XR Knee Right 2 Views (Stand gaurav)on 11-30-2017 XR Knee Right 2 Views (Standard) Interface, Rad In [employer] Speech[employer] - 11/30/2017 7:43 PM EST EXAMINATION: XR KNEE RIGHT 2 VIEWS (STANDARD) ADDITIONAL HISTORY: post-op knee///Reason for exam?:post-op knee Injury/Trauma or Illness?:Illness/Other COMPARISON: None. 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 Expected postoperative soft tissue changes are noted. Workstation ID: [id number] Invalid Interpretation Code [employer] [place] XR Knee Right 2 Views (Standard) EXAMINATION: XR KNEE RIGHT 2 VIEWS (STANDARD) ADDITIONAL HISTORY: post-op knee///Reason for exam?:post-op knee Injury/Trauma or Illness?:Illness/Other COMPARISON: None. 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 Expected postoperative soft tissue changes are noted. Workstation ID: [id number] Invalid Interpretation Code [facility] ECG 12 Leadon 11-25-2017 Atrial Rate 65 BPM Invalid Interpretation Code [id number] P Custer 57 degrees Invalid Interpretation Code [id number] P-R Interval 184 ms Invalid Interpretation Code [id number] Q-T Interval 386 ms Invalid Interpretation Code [id number] QRS Duration 84 ms Invalid Interpretation Code [id number] QTC Calculation (Bezet) 401 ms Invalid Interpretation Code [id number] R Custer 40 degrees Invalid Interpretation Code [id number] T Custer 56 degrees Invalid Interpretation Code [id number] Ventricular Rate 65 BPM Invalid Interpretation Code [id number] ECG 12 Lead Normal sinus rhythm Normal ECG Confirmed by Sidney Dominguez M.D. ([id number]) on 11/25/2017 1:43:11 PM Invalid Interpretation Code [id number] Vital Signs Date Time Vital Sign Value Performing Clinician Facility 09-03-2025 11:18040 Body height 152.4 cm Karen Goncalves MD Work Phone: [facility] 09-03-2025 11:18-0400 Body mass index (BMI) [Ratio] 28.9 kg/m2 Karen Goncalves MD Work Phone: [facility] 09-03-2025 11:18040 Body weight 67.13 kg Karen Goncalves MD Work Phone: [facility] 09-03-2025 11:18-0400 Diastolic blood pressure 88 mm[Hg] Karen Goncalves MD Work Phone: [facility] 09-03-2025 11:18-0400 Heart rate 69 /min Karen Goncalves MD Work Phone: [facility] 09-03-2025 11:18-0400 Respiratory rate 16 /min Karen Goncalves MD Work Phone: [facility] 09-03-2025 11:18-0400 SaO2% (BldA) [Mass fraction] 96 % Karen Goncalves MD Work Phone: [facility] Comment on above: RA 09-03-2025 11:18-0400 Systolic blood pressure 165 mm[Hg] Karen Goncalves MD Work Phone: [facility] 03-15-2025 09:58-0400 Body height 152.4 cm Herminio Whitman MD Work Phone: [facility] 03-15-2025 09:58-0400 Body mass index (BMI) [Ratio] 28.71 kg/m2 Herminio Whitman MD Work Phone: [facility] 03-15-2025 09:58-0400 Body weight 66.68 kg Herminio Whitman MD Work Phone: [facility] 03-15-2025 09:58-0400 Diastolic blood pressure 73 mm[Hg] Herminio Whitman MD Work Phone: [facility] 03-15-2025 09:58-0400 Heart rate 71 /min Herminio Whitman MD Work Phone: [facility] 03-15-2025 09:58-0400 SaO2% (BldA) [Mass fraction] 96 % Herminio Whitman MD Work Phone: [facility] 03-15-2025 09:58-0400 Systolic blood pressure 132 mm[Hg] Herminio Whitman MD Work Phone: [facility] 02-13-2025 15:00-0400 Body height 152.4 cm Karen Goncalves MD Work Phone: [facility] 02-13-2025 15:00-0400 Body mass index (BMI) [Ratio] 27.93 kg/m2 Karen Goncalves MD Work Phone: [facility] 02-13-2025 15:00-0400 Body weight 64.86 kg Karen Goncalves MD Work Phone: [facility] 02-13-2025 15:00-0400 Diastolic blood pressure 75 mm[Hg] Karen Goncalves MD Work Phone: [facility] 02-13-2025 15:00-0400 Heart rate 67 /min Karen Goncalves MD Work Phone: [facility] 02-13-2025 15:00-0400 Respiratory rate 16 /min Karen Goncalves MD Work Phone: [facility] 02-13-2025 15:00-0400 SaO2% (BldA) [Mass fraction] 94 % Karen Goncalves MD Work Phone: [facility] Comment on above: 02-13-2025 15:00-0400 Systolic blood pressure 141 mm[Hg] Karen Goncalves MD Work Phone: [facility] 11-27-2024 13:25-0500 Body mass index (BMI) [Ratio] 29.1 kg/m2 Maricel Suppan ROBOTICS TECHNICIAN.DATA ANALYSIS INTERN Work Phone: [facility] 11-27-2024 13:25-0500 Body temperature 99.19 [degF] Maricel Suppan ROBOTICS TECHNICIAN.DATA ANALYSIS INTERN Work Phone: [facility] 11-27-2024 13:25-0500 Body weight 67.59 kg Maricel Suppan ROBOTICS TECHNICIAN.DATA ANALYSIS INTERN Work Phone: [facility] 11-27-2024 13:25-0500 Diastolic blood pressure 70 mm[Hg] Maricel Suppan ROBOTICS TECHNICIAN.DATA ANALYSIS INTERN Work Phone: [facility] 11-27-2024 13:25-0500 Heart rate 70 /min Maricel Suppan ROBOTICS TECHNICIAN.DATA ANALYSIS INTERN Work Phone: [facility] 11-27-2024 13:25-0500 SaO2% (BldA) [Mass fraction] 94 % Maricel Suppan ROBOTICS TECHNICIAN.DATA ANALYSIS INTERN Work Phone: [facility] 11-27-2024 13:25-0500 Systolic blood pressure 132 mm[Hg] Maricel Kennedy TRENT.DATA ANALYSIS INTERN Work Phone: [facility] 10-31-2024 12:52-0500 Body height 152.4 cm Karen Goncalves MD Work Phone: [facility] 10-31-2024 12:52-0500 Body mass index (BMI) [Ratio] 28.51 kg/m2 Karen Goncalves MD Work Phone: [facility] 10-31-2024 12:52-0500 Body temperature 97.59 [degF] Karen Goncalves MD Work Phone: [facility] 10-31-2024 12:52-0500 Body weight 66.22 kg Karen Goncalves MD Work Phone: [facility] 10-31-2024 12:52-0500 Diastolic blood pressure 76 mm[Hg] Karen Goncalves MD Work Phone: [facility] 10-31-2024 12:52-0500 Heart rate 70 /min Karen Goncalves MD Work Phone: [facility] 10-31-2024 12:52-0500 SaO2% (BldA) [Mass fraction] 96 % Karen Goncalves MD Work Phone: [facility] 10-31-2024 12:52-0500 Systolic blood pressure 158 mm[Hg] Karen Goncalves MD Work Phone: [facility] 09-12-2024 10:45-0400 Body height 152.4 cm Herminio Whitman MD Work Phone: [facility] 09-12-2024 10:45-0400 Body mass index (BMI) [Ratio] 29.15 kg/m2 Herminio Whitman MD Work Phone: [facility] 09-12-2024 10:45-0400 Body weight 67.7 kg Herminio Whitman MD Work Phone: [facility] 09-12-2024 10:45-0400 Diastolic blood pressure 100 mm[Hg] Herminio Whitman MD Work Phone: [facility] 09-12-2024 10:45-0400 Heart rate 69 /min Herminio Whitman MD Work Phone: [facility] 09-12-2024 10:45-0400 SaO2% (BldA) [Mass fraction] 97 % Herminio Whitman MD Work Phone: [facility] 09-12-2024 10:45-0400 Systolic blood pressure 154 mm[Hg] Herminio Whitman MD Work Phone: [facility] 05-21-2024 11:44-0400 Body mass index (BMI) [Ratio] 28.32 kg/m2 Maricel Suppan ROBOTICS TECHNICIAN.ELECTROMYOGRAPHIC TECHNICIAN Work Phone: [facility] 05-21-2024 11:44-0400 Body weight 65.77 kg Maricel Suppan ROBOTICS TECHNICIAN.ELECTROMYOGRAPHIC TECHNICIAN Work Phone: [facility] 05-21-2024 11:44-0400 Diastolic blood pressure 80 mm[Hg] Maricel Suppan ROBOTICS TECHNICIAN.ELECTROMYOGRAPHIC TECHNICIAN Work Phone: [facility] 05-21-2024 11:44-0400 Heart rate 74 /min Maricel Suppan ROBOTICS TECHNICIAN.ELECTROMYOGRAPHIC TECHNICIAN Work Phone: [facility] 05-21-2024 11:44-0400 Respiratory rate 16 /min Maricel Suppan ROBOTICS TECHNICIAN.ELECTROMYOGRAPHIC TECHNICIAN Work Phone: [facility] 05-21-2024 11:44-0400 SaO2% (BldA) [Mass fraction] 96 % Maricel Suppan ROBOTICS TECHNICIAN.ELECTROMYOGRAPHIC TECHNICIAN Work Phone: [facility] 05-21-2024 11:44-0400 Systolic blood pressure 106 mm[Hg] Maricel Suppan ROBOTICS TECHNICIAN.ELECTROMYOGRAPHIC TECHNICIAN Work Phone: [facility] 05-14-2024 11:31-0400 Body height 152.4 cm Jayashree Reyes MD Work Phone: [facility] 05-14-2024 11:31-0400 Body mass index (BMI) [Ratio] 28.55 kg/m2 Jayashree Reyes MD Work Phone: [facility] 05-14-2024 11:31-0400 Body temperature 97.7 [degF] Jayashree Reyes MD Work Phone: [facility] 05-14-2024 11:31-0400 Body weight 66.32 kg Jayashree Reyes MD Work Phone: [facility] 05-14-2024 11:31-0400 Diastolic blood pressure 76 mm[Hg] Jayashree Reyes MD Work Phone: [facility] 05-14-2024 11:31-0400 Heart rate 91 /min Jayashree Reyes MD Work Phone: [facility] 05-14-2024 11:31-0400 SaO2% (BldA) [Mass fraction] 94 % Jayashree Reyes MD Work Phone: [facility] 05-14-2024 11:31-0400 Systolic blood pressure 108 mm[Hg] Jayashree Reyes MD Work Phone: [facility] 05-10-2024 13:11-0400 Body height 152.4 cm Karen Goncalves MD Work Phone: [facility] 05-10-2024 13:11-0400 Body mass index (BMI) [Ratio] 27.93 kg/m2 Karen Goncalves MD Work Phone: [facility] 05-10-2024 13:11-0400 Body temperature 97.5 [degF] Karen Goncalves MD Work Phone: [facility] 05-10-2024 13:11-0400 Body weight 64.86 kg Karen Goncalves MD Work Phone: [facility] 05-10-2024 13:11-0400 Diastolic blood pressure 73 mm[Hg] Karen Goncalves MD Work Phone: [facility] 05-10-2024 13:11-0400 Heart rate 61 /min Karen Goncalves MD Work Phone: [facility] 05-10-2024 13:11-0400 Respiratory rate 18 /min Karen Goncalves MD Work Phone: [facility] 05-10-2024 13:11-0400 SaO2% (BldA) [Mass fraction] 95 % Karen Goncalves MD Work Phone: [facility] Comment on above: RA 05-10-2024 13:11-0400 Systolic blood pressure 149 mm[Hg] Karen Goncalves MD Work Phone: [facility] 04-24-2024 13:40-0400 Body mass index (BMI) [Ratio] 28.51 kg/m2 Maricel Suppan ROBOTICS TECHNICIAN.ELECTROMYOGRAPHIC TECHNICIAN Work Phone: [facility] 04-24-2024 13:40-0400 Body weight 66.22 kg Maricel Suppan ROBOTICS TECHNICIAN.ELECTROMYOGRAPHIC TECHNICIAN Work Phone: [facility] 04-24-2024 13:40-0400 Diastolic blood pressure 84 mm[Hg] Maricel Suppan ROBOTICS TECHNICIAN.ELECTROMYOGRAPHIC TECHNICIAN Work Phone: [facility] 04-24-2024 13:40-0400 Heart rate 72 /min Maricel Suppan ROBOTICS TECHNICIAN.ELECTROMYOGRAPHIC TECHNICIAN Work Phone: [facility] 04-24-2024 13:40-0400 Respiratory rate 16 /min Maricel Suppan ROBOTICS TECHNICIAN.ELECTROMYOGRAPHIC TECHNICIAN Work Phone: [facility] 04-24-2024 13:40-0400 SaO2% (BldA) [Mass fraction] 97 % Maricel Suppan ROBOTICS TECHNICIAN.ELECTROMYOGRAPHIC TECHNICIAN Work Phone: [facility] 04-24-2024 13:40-0400 Systolic blood pressure 122 mm[Hg] Maricel Suppan ROBOTICS TECHNICIAN.ELECTROMYOGRAPHIC TECHNICIAN Work Phone: [facility] 03-05-2024 10:50-0400 Body height 152.4 cm Herminio Whitman MD Work Phone: [facility] 03-05-2024 10:50-0400 Body weight 67.13 kg Herminio Whitman MD Work Phone: [facility] 03-05-2024 10:50-0400 Diastolic blood pressure 70 mm[Hg] Herminio Whitman MD Work Phone: [facility] 03-05-2024 10:50-0400 Heart rate 70 /min Herminio Whitman MD Work Phone: [facility] 03-05-2024 10:50-0400 Systolic blood pressure 115 mm[Hg] Herminio Whitman MD Work Phone: [facility] 10-17-2023 12:58-0500 Diastolic blood pressure 82 mm[Hg] Jim Renteria MD Work Phone: [facility] 10-17-2023 12:58-0500 Heart rate 64 /min Jim Renteria MD Work Phone: [facility] 10-17-2023 12:58-0500 Systolic blood pressure 141 mm[Hg] Jim Renteria MD Work Phone: [facility] 10-17-2023 12:57-0500 Body height 152.4 cm Jim Renteria MD Work Phone: [facility] 10-17-2023 12:57-0500 Body mass index (BMI) [Ratio] 28.51 kg/m2 Jim Renteria MD Work Phone: [facility] 10-17-2023 12:57-0500 Body weight 66.22 kg Jim Renteria MD Work Phone: [facility] 10-10-2023 15:01-0500 Diastolic blood pressure 86 mm[Hg] Herminio Whitman MD Work Phone: [facility] 10-10-2023 15:01-0500 Systolic blood pressure 132 mm[Hg] Herminio Whitman MD Work Phone: [facility] 10-10-2023 14:24-0500 Body height 152.4 cm Herminio Whitman MD Work Phone: [facility] 10-10-2023 14:24-0500 Body weight 67.13 kg Herminio Whitman MD Work Phone: [facility] 10-10-2023 14:24-0500 Heart rate 68 /min Herminio Whitman MD Work Phone: [facility] 10-10-2023 14:24-0500 SaO2% (BldA) [Mass fraction] 95 % Herminio Whitman MD Work Phone: [facility] 08-02-2023 09:46-0400 Body height 152.4 cm Karen Goncalves MD Work Phone: [facility] 08-02-2023 09:46-0400 Body mass index (BMI) [Ratio] 27.73 kg/m2 Karen Goncalves MD Work Phone: [facility] 08-02-2023 09:46-0400 Body temperature 98.01 [degF] Karen Goncalves MD Work Phone: [facility] 08-02-2023 09:46-0400 Body weight 64.41 kg Karen Goncalves MD Work Phone: [facility] 08-02-2023 09:46-0400 Diastolic blood pressure 88 mm[Hg] Karen Goncalves MD Work Phone: [facility] 08-02-2023 09:46-0400 Heart rate 71 /min Karen Goncalves MD Work Phone: [facility] 08-02-2023 09:46-0400 Respiratory rate 12 /min Karen Goncalves MD Work Phone: [facility] 08-02-2023 09:46-0400 SaO2% (BldA) [Mass fraction] 95 % Karen Goncalves MD Work Phone: [facility] 08-02-2023 09:46-0400 Systolic blood pressure 136 mm[Hg] Karen Goncalves MD Work Phone: [facility] 06-16-2023 10:01-0400 Body height 152.4 cm Herminio Whitman MD Work Phone: [facility] 06-16-2023 10:01-0400 Body weight 66.5 kg Herminio Whitman MD Work Phone: [facility] 06-16-2023 10:01-0400 Diastolic blood pressure 68 mm[Hg] Herminio Whitman MD Work Phone: [facility] 06-16-2023 10:01-0400 Heart rate 68 /min Herminio Whitman MD Work Phone: [facility] 06-16-2023 10:01-0400 SaO2% (BldA) [Mass fraction] 96 % Herminio Whitman MD Work Phone: [facility] 06-16-2023 10:01-0400 Systolic blood pressure 110 mm[Hg] Herminio Whitman MD Work Phone: [facility] 06-11-2023 14:47-0400 Body height 152.4 cm [facility] 06-11-2023 14:47-0400 Body mass index (BMI) [Ratio] 28.7 kg/m2 [facility] 06-11-2023 14:47-0400 Body temperature 98.2 [degF] [facility] 06-11-2023 14:47-0400 Body weight 66.67 kg [facility] 06-11-2023 14:47-0400 Diastolic blood pressure 97 mm[Hg] [facility] 06-11-2023 14:47-0400 Heart rate 65 /min [facility] 06-11-2023 14:47-0400 Respiratory rate 16 /min [facility] 06-11-2023 14:47-0400 SaO2% (BldA) [Mass fraction] 94 % [facility] 06-11-2023 14:47-0400 Systolic blood pressure 112 mm[Hg] [facility] 06-11-2023 13:39-0400 Body temperature 99.19 [degF] Josh Serrano ROBOTICS TECHNICIAN.DATA ANALYSIS INTERN Work Phone: [facility] 06-11-2023 13:39-0400 Body weight 66.68 kg Josh Zach ROBOTICS TECHNICIAN.DATA ANALYSIS INTERN Work Phone: [facility] 06-11-2023 13:39-0400 Diastolic blood pressure 78 mm[Hg] Josh Serrano ROBOTICS TECHNICIAN.DATA ANALYSIS INTERN Work Phone: [facility] 06-11-2023 13:39-0400 Heart rate 69 /min Josh Zach ROBOTICS TECHNICIAN.DATA ANALYSIS INTERN Work Phone: [facility] 06-11-2023 13:39-0400 Respiratory rate 16 /min Josh Serrano ROBOTICS TECHNICIAN.DATA ANALYSIS INTERN Work Phone: [facility] 06-11-2023 13:39-0400 SaO2% (BldA) [Mass fraction] 97 % Josh Serrano ROBOTICS TECHNICIAN.DATA ANALYSIS INTERN Work Phone: [facility] 06-11-2023 13:39-0400 Systolic blood pressure 132 mm[Hg] Josh Serrano ROBOTICS TECHNICIAN.DATA ANALYSIS INTERN Work Phone: [facility] 06-01-2023 11:33-0400 Body height 152.4 cm Karen Goncalves MD Work Phone: [facility] 06-01-2023 11:33-0400 Body mass index (BMI) [Ratio] 27.73 kg/m2 Karen Goncalves MD Work Phone: [facility] 06-01-2023 11:33-0400 Body temperature 98.4 [degF] Karen Goncalves MD Work Phone: [facility] 06-01-2023 11:33-0400 Body weight 64.41 kg Karen Goncalves MD Work Phone: [facility] 06-01-2023 11:33-0400 Diastolic blood pressure 71 mm[Hg] Karen Goncalves MD Work Phone: [facility] 06-01-2023 11:33-0400 Heart rate 69 /min Karen Goncalves MD Work Phone: [facility] 06-01-2023 11:33-0400 Respiratory rate 12 /min Karen Goncalves MD Work Phone: [facility] 06-01-2023 11:33-0400 SaO2% (BldA) [Mass fraction] 95 % Karen Goncalves MD Work Phone: [facility] 06-01-2023 11:33-0400 Systolic blood pressure 129 mm[Hg] Karen Goncalves MD Work Phone: [facility] 05-05-2023 10:33-0400 Body temperature 97.81 [degF] Fritz Banks MD Work Phone: [facility] 05-05-2023 10:33-0400 Body weight 65.14 kg Fritz Banks MD Work Phone: [facility] 05-05-2023 10:33-0400 Diastolic blood pressure 90 mm[Hg] Fritz Banks MD Work Phone: [facility] 05-05-2023 10:33-0400 Heart rate 78 /min Fritz Bansk MD Work Phone: [facility] 05-05-2023 10:33-0400 Respiratory rate 18 /min Fritz Banks MD Work Phone: [facility] 05-05-2023 10:33-0400 SaO2% (BldA) [Mass fraction] 95 % Fritz Banks MD Work Phone: [facility] 05-05-2023 10:33-0400 Systolic blood pressure 148 mm[Hg] Fritz Banks MD Work Phone: [facility] 03-30-2023 14:03-0400 Diastolic blood pressure 82 mm[Hg] Herminio Whitman MD Work Phone: [facility] 03-30-2023 14:03-0400 Systolic blood pressure 136 mm[Hg] Herminio Whitman MD Work Phone: [facility] 03-30-2023 13:43-0400 Body height 152.4 cm Herminio Whitman MD Work Phone: [facility] 03-30-2023 13:43-0400 Body weight 65.59 kg Herminio Whitman MD Work Phone: [facility] 03-30-2023 13:43-0400 Heart rate 76 /min Herminoi Whitman MD Work Phone: [facility] 03-30-2023 13:43-0400 SaO2% (BldA) [Mass fraction] 97 % Herminio Whitman MD Work Phone: [facility] 02-21-2023 14:04-0400 Diastolic blood pressure 82 mm[Hg] Herminio Whitman MD Work Phone: [facility] 02-21-2023 14:04-0400 Systolic blood pressure 126 mm[Hg] Herminio Whitman MD Work Phone: [facility] 02-21-2023 13:43-0400 Body height 152.4 cm Herminio Whitman MD Work Phone: [facility] 02-21-2023 13:43-0400 Body weight 64.95 kg Herminio Whitman MD Work Phone: [facility] 02-21-2023 13:43-0400 Heart rate 72 /min Herminio Whitman MD Work Phone: [facility] 02-21-2023 13:43-0400 SaO2% (BldA) [Mass fraction] 96 % Herminio Whitman MD Work Phone: [facility] 12-01-2022 12:15-0500 Body height 152.4 cm Karen Goncalves MD Work Phone: [facility] 12-01-2022 12:15-0500 Body mass index (BMI) [Ratio] 27.54 kg/m2 Karen Goncalves MD Work Phone: [facility] 12-01-2022 12:15-0500 Body temperature 97.3 [degF] Karen Goncalves MD Work Phone: [facility] 12-01-2022 12:15-0500 Body weight 63.96 kg Karen Goncalves MD Work Phone: [facility] 12-01-2022 12:15-0500 Diastolic blood pressure 82 mm[Hg] Karen Goncalves MD Work Phone: [facility] 12-01-2022 12:15-0500 Heart rate 70 /min Karen Goncalves MD Work Phone: [facility] 12-01-2022 12:15-0500 Respiratory rate 12 /min Karen Goncalves MD Work Phone: [facility] 12-01-2022 12:15-0500 SaO2% (BldA) [Mass fraction] 94 % Karen Goncalves MD Work Phone: [facility] 12-01-2022 12:15-0500 Systolic blood pressure 145 mm[Hg] Karen Goncalves MD Work Phone: [facility] 11-26-2022 11:40-0500 Body weight 65.32 kg Herminio Whitman MD Work Phone: [facility] 11-26-2022 11:40-0500 Diastolic blood pressure 62 mm[Hg] Herminio Whitman MD Work Phone: [facility] 11-26-2022 11:40-0500 Heart rate 71 /min Herminio Whitman MD Work Phone: [facility] 11-26-2022 11:40-0500 SaO2% (BldA) [Mass fraction] 96 % Herminio Whitman MD Work Phone: [facility] 11-26-2022 11:40-0500 Systolic blood pressure 110 mm[Hg] Herminio Whitman MD Work Phone: [facility] 10-07-2022 11:39-0500 Body temperature 98.8 [degF] Herminio Whitman MD Work Phone: [facility] 10-07-2022 11:39-0500 Body weight 65.77 kg Herminio Whitman MD Work Phone: [facility] 10-07-2022 11:39-0500 Diastolic blood pressure 75 mm[Hg] Herminio Whitman MD Work Phone: [facility] 10-07-2022 11:39-0500 Heart rate 77 /min Herminio Whitman MD Work Phone: [facility] 10-07-2022 11:39-0500 SaO2% (BldA) [Mass fraction] 94 % Herminio Whitman MD Work Phone: [facility] 10-07-2022 11:39-0500 Systolic blood pressure 121 mm[Hg] Herminio Whitman MD Work Phone: [facility] 10-04-2022 11:30-0500 Body height 152.4 cm Karen Goncalves MD Work Phone: [facility] 10-04-2022 11:30-0500 Body mass index (BMI) [Ratio] 27.15 kg/m2 Karen Goncalves MD Work Phone: [facility] 10-04-2022 11:30-0500 Body temperature 98.2 [degF] Karen Goncalves MD Work Phone: [facility] 10-04-2022 11:30-0500 Body weight 63.05 kg Karen Goncalves MD Work Phone: [facility] 10-04-2022 11:30-0500 Diastolic blood pressure 82 mm[Hg] Karen Goncalves MD Work Phone: [facility] 10-04-2022 11:30-0500 Heart rate 69 /min Karen Goncalves MD Work Phone: [facility] 10-04-2022 11:30-0500 Respiratory rate 12 /min Karen Goncalves MD Work Phone: [facility] 10-04-2022 11:30-0500 SaO2% (BldA) [Mass fraction] 95 % Karen Goncalves MD Work Phone: [facility] 10-04-2022 11:30-0500 Systolic blood pressure 149 mm[Hg] Karen Goncalves MD Work Phone: [facility] 06-04-2022 11:11-0400 Body height 152.4 cm Karen Goncalves MD Work Phone: [facility] 06-04-2022 11:11-0400 Body mass index (BMI) [Ratio] 27.54 kg/m2 Karen Goncalves MD Work Phone: [facility] 06-04-2022 11:11-0400 Body temperature 97.7 [degF] Karen Goncalves MD Work Phone: [facility] 06-04-2022 11:11-0400 Body weight 63.96 kg Karen Goncalves MD Work Phone: [facility] 06-04-2022 11:11-0400 Diastolic blood pressure 80 mm[Hg] Karen Goncalves MD Work Phone: [facility] 06-04-2022 11:11-0400 Heart rate 62 /min Karen Goncalves MD Work Phone: [facility] 06-04-2022 11:11-0400 Respiratory rate 16 /min Karen Goncalves MD Work Phone: [facility] 06-04-2022 11:11-0400 SaO2% (BldA) [Mass fraction] 94 % Karen Goncalves MD Work Phone: [facility] 06-04-2022 11:11-0400 Systolic blood pressure 153 mm[Hg] Karen Goncalves MD Work Phone: [facility] 12-09-2019 11:16-0500 Body Temperature 98.71 [degF] [facility] 12-09-2019 11:16-0500 BP Diastolic 79 mm[Hg] [facility] 12-09-2019 11:16-0500 BP Systolic 146 mm[Hg] [facility] 12-09-2019 11:16-0500 Pulse (Heart Rate) 78 /min [facility] 12-09-2019 11:16-0500 Pulse Oximetry 93 % [facility] 12-09-2019 11:16-0500 Respiratory Rate 14 /min [facility] 12-07-2019 05:38-0500 BMI (Body Mass Index) 30.7 kg/m2 [facility] 12-07-2019 05:38-0500 Body weight 71.3 kg [facility] 12-07-2019 05:38-0500 Height 152.4 cm [facility] 11-23-2019 12:25-0500 BMI (Body Mass Index) 30.74 kg/m2 [facility] 12:25-0500 Body Temperature 99 [degF] Rishi Carson [facility] 11-23-2019 12:25-0500 Body weight 71.4 kg Rishi Carson [facility] 11-23-2019 12:25-0500 BP Diastolic 77 mm[Hg] Rishi Carson [facility] 11-23-2019 12:25-0500 BP Systolic 124 mm[Hg] Rishi Carson [facility] 11-23-2019 12:25-0500 Height 152.4 cm Rishi Carson [facility] 11-23-2019 12:25-0500 Pulse (Heart Rate) 71 /min Rishi Carson [facility] 11-23-2019 12:25-0500 Pulse Oximetry 92 % Rishi Carson [facility] 11-23-2019 12:25-0500 Respiratory Rate 14 /min Rishi Carson [facility] 09-26-2019 10:10-0400 BMI (Body Mass Index) 30.18 kg/m2 Rishi Carson [facility] 09-26-2019 10:10-0400 Body Temperature 98.49 [degF] Rishi Carson [facility] 09-26-2019 10:10-0400 Body weight 70.1 kg Rishi Carson [facility] 09-26-2019 10:10-0400 BP Diastolic 76 mm[Hg] Rishi Carson [facility] 09-26-2019 10:10-0400 BP Systolic 113 mm[Hg] Rishi Carson [facility] 09-26-2019 10:10-0400 Height 152.4 cm Rishi Carson [facility] 09-26-2019 10:10-0400 Pulse (Heart Rate) 63 /min Rishi Carson [facility] 09-26-2019 10:10-0400 Pulse Oximetry 95 % Rishi Carson [facility] 09-26-2019 10:10-0400 Respiratory Rate 14 /min Rishi Carson [facility] 05-07-2019 13:35-0400 BMI (Body Mass Index) 28.71 [facility]/m[facility] 13:35-0400 Body weight 66.68 [facility] 05-07-2019 13:35-0400 Height 152.4 cm [facility] 12-01-2017 11:49-0500 Body Temperature 98.49 [degF] [facility] Work Phone: 12-01-2017 11:49-0500 BP Diastolic 55 mm[Hg] [facility] Work Phone: 12-01-2017 11:49-0500 BP Systolic 103 mm[Hg] [facility] Work Phone: 12-01-2017 11:49-0500 Pulse (Heart Rate) 62 /min Rony Guerrero [facility] Work Phone: 12-01-2017 11:49-0500 Pulse Oximetry 92 % Rony Guerrero [facility] Work Phone: 12-01-2017 11:49-0500 Respiratory Rate 18 /min Rony Guerrero [facility] Work Phone: 11-30-2017 11:11-0500 BMI (Body Mass Index) 29.49 kg/m2 Rony Guerrero [facility] Work Phone: 11-30-2017 11:11-0500 Height 152.4 cm Rony Guerrero [facility] Work Phone: 11-30-2017 11:11-0500 Weight 68.5 kg Rony Guerrero [facility] Work Phone: 11-25-2017 10:25-0500 BMI (Body Mass Index) 29.9 kg/m2 Quinton Whitten [facility] Work Phone: 11-25-2017 10:25-0500 Body Temperature 99.7 [degF] Quinton Whitten [facility] Work Phone: 11-25-2017 10:25-0500 BP Diastolic 83 mm[Hg] [facility]: 11-25-2017 10:25-0500 BP Systolic 138 mm[Hg] Quinton Whitten [facility] Work Phone: 11-25-2017 10:25-0500 Height 152.4 cm Quinton Whitten [facility] Work Phone: 11-25-2017 10:25-0500 Pulse (Heart Rate) 72 /min Quinton Whitten [facility] Work Phone: 11-25-2017 10:25-0500 Pulse Oximetry 94 % Quinton Whitten [facility] Work Phone: 11-25-2017 10:25-0500 Weight 69.45 kg Quinton Whitten [facility] Work Phone: Encounters Encounter Date Encounter Type Care Provider Facility Start: 10-03-2025 End: 10-03-[address] [facility] Facility:[facility] Start: 09-17-2025 End: 09-17-2025 ambulatory [facility] Facility:[facility] Start: 09-03-2025 End: 09-03-2025 Office outpatient visit 25 minutes Karen Goncalves MD Work Phone: [facility] Comment on above: Bronchiectasis witho ut complication (HCC) (Primary Dx); MORAN (dyspnea on exertion); Chronic cough; Immunoglobulin deficiency (HCC) Start: 09-03-2025 End: 09-03-2025 ambulatory KAREN GONCALVES [facility] Start: 08-26-2025 End: 08-26-[address] [facility] Facility:[facility] Start: 07-15-2025 End: 07-16-2025 Refill Herminio Whitman MD Work Phone: [facility] Comment on above: Refill Request Start: 06-19-2025 End: 06-20-2025 Refill Herminio Whitman MD Work Phone: [facility] Comment on above: Refill Request Start: 03-25-2025 End: 2025 Follow-up encounter Herminio Whitman MD Work Phone: [facility] Start: 03-21-2025 End: 03-21-2025 ambulatory ESPERANZA PERRIN Facility:[facility] Start: 03-19-2025 End: 05-19-2025 Follow-up encounter Maricel Kennedy APRN.CNP Work Phone: [facility] Start: 03-15-2025 End: 03-15-2025 ambulatory HERMINIO Lolis J CARLOS Facility:[facility] Start: 03-15-2025 End: 03-15-2025 Subsequent hospital visit by physician [facility] Work Phone: Radiology Comment on above: Headache, unspecifie d headache type [R51.9] Start: 03-15-2025 End: 03-15-2025 Patient encounter procedure Herminio Whitman MD Work Phone: [facility] Comment on above: Essential hypertensi on, benign (Primary Dx); Bronchiectasis without complication (HCC); Irritable bowel syndrome with both constipation and diarrhea; Acquired hypothyroidism; H/O NOSE//PERS HX MALIG SKIN MELANOMA; Immunodeficiency (HCC); Depression; Headache, unspecified headache type; Neck pain; Stage 3 chronic kidney disease, unspecified whether stage 3a or 3b CKD (HCC); Skin lesion; Current mild episode of major depressive disorder without prior episode Start: 03-15-2025 End: 03-15-2025 ambulatory HERMINIO WHITMAN Facility:[facility] Start: 02-19-2025 End: 04-21-2025 Follow-up encounter Karen Goncalves MD Work Phone: [facility] Comment on above: XR Chest AP/PA and L AT Start: 02-13-2025 End: 02-13-2025 Office outpatient visit 25 minutes Karen Goncalves MD Work Phone: [facility] Comment on above: Bronchiectasis witho ut complication (HCC) (Primary Dx); MORAN (dyspnea on exertion) Start: 02-13-2025 End: 02-13-2025 ambulatory KAREN GONCALVES [facility] Start: 01-10-2025 End: 01-10-2025 Refill Karen Goncalves MD Work Phone: [facility] Comment on above: Bronchiectasis witho ut complication (HCC) Start: 11-27-2024 End: 11-27-2024 Office outpatient visit 15 minutes Maricel Kennedy APRN.CNP Work Phone: [facility] [place] Comment on above: Acute bronchitis wit h chronic obstructive pulmonary disease (COPD) (HCC) (HCC) (Primary Dx); Stage 3 chronic kidney disease, unspecified whether stage 3a or 3b CKD (HCC); Essential hypertension, benign; Hypothyroidism due to medication; Hyperlipidemia, mixed Start: 11-27-2024 End: 11-27-2024 ambulatory Herminio Whitman MD Work Phone: [facility] [place] Comment on above: Cough Start: 10-31-2024 End: 10-31-2024 Office outpatient visit 25 minutes Karen Goncalves MD Work Phone: [facility] Comment on above: Bronchiectasis witho ut complication (HCC) (Primary Dx); Physical deconditioning; MORAN (dyspnea on exertion); Chronic cough Start: 10-31-2024 End: 10-31-2024 ambulatory HERMINIO WHITMAN [facility] Start: 09-13-2024 End: 09-27-2024 Telephone encounter Herminio Whitman MD Work Phone: [facility] [place] Comment on above: Results Start: 09-12-2024 End: 09-12-2024 Patient encounter procedure Herminio Whitman MD Work Phone: [facility] [place] Comment on above: Essential hypertensi on, benign (Primary Dx); Bronchiectasis without complication (HCC); Stage 3 chronic kidney disease, unspecified whether stage 3a or 3b CKD (HCC); Acquired hypothyroidism; H/O NOSE//PERS HX MALIG SKIN MELANOMA; Fatigue, unspecified type; Immunodeficiency (HCC); Anxiety with depression Start: 08-09-2024 End: 08-09-2024 Refill Herminio Whitman MD Work Phone: [facility] [place] Comment on above: Refill Request Start: 05-27-2024 Refill Herminio Whitman MD Work Phone: [facility] [place] Comment on above: Refill Request Start: 05-21-2024 End: 05-21-2024 Office outpatient visit 15 minutes Maricel Kennedy APRN.ELECTROMYOGRAPHIC TECHNICIAN Work Phone: [facility] [place] Comment on above: Neoplasm of uncertai n behavior of skin of abdomen (Primary Dx); Anxiety with depression Start: 05-14-2024 End: 05-14-2024 Patient encounter procedure Jayashree Reyes MD Work Phone: General Surgery Comment on above: Subcutaneous mass of abdominal wall; Screening for colon cancer Start: 05-10-2024 End: 05-10-2024 Office outpatient visit 25 minutes Karen Goncalves MD Work Phone: [facility] Comment on above: Bronchiectasis witho ut complication (HCC) (Primary Dx); Immunoglobulin deficiency (HCC); Chronic cough; MORAN (dyspnea on exertion) Start: 04-24-2024 ambulatory MARICEL KENNEDY Facil ity:[facility] Start: 04-24-2024 End: 04-24-2024 Subsequent hospital visit by physician [facility] Comment on above: Neoplasm of uncertai n behavior [D48.9] Start: 04-24-2024 Telephone encounter Maricel Kennedy APRN.ELECTROMYOGRAPHIC TECHNICIAN Work Phone: [facility] [place] Start: 04-24-2024 End: 04-24-2024 Office outpatient visit 15 minutes Maricel Kennedy ROBOTICS TECHNICIAN.ELECTROMYOGRAPHIC TECHNICIAN Work Phone: [facility] [place] Comment on above: Neoplasm of uncertai n behavior (Primary Dx) Start: 03-05-2024 End: 03-05-2024 Patient encounter procedure Herminio Whitman MD Work Phone: [facility] [place] Comment on above: Bronchiectasis witho ut complication (HCC) (Primary Dx); Essential hypertension, benign; Acquired hypothyroidism; Personal history of skin cancer; Fatigue, unspecified type; Stage 3 chronic kidney disease, unspecified whether stage 3a or 3b CKD (HCC); Benign essential tremor Start: 11-11-2023 End: 11-12-2023 ambulatory JIM RENTERIA [facility] Start: 10-17-2023 End: 10-17-2023 Office outpatient new 20 minutes Jim Renteria MD Work Phone: [facility] Comment on above: SOB (shortness of br eath) (Primary Dx); 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 Comment on above: Bronchiectasis witho ut complication (HCC) (Primary Dx); Essential hypertension, benign; Hypertensive chronic kidney disease with stage 1 through stage 4 chronic kidney disease, or unspecified chronic kidney disease; Lung nodules; Stage 3 chronic kidney disease, unspecified whether stage 3a or 3b CKD (HCC); Acquired hypothyroidism; SOB (shortness of breath); Need for influenza vaccination Start: 09-16-2023 Refill Malika Pillai ROBOTICS TECHNICIAN.ELECTROMYOGRAPHIC TECHNICIAN Work Phone: [facility] [place] Comment on above: Refill Request Start: 08-29-2023 Refill Herminio Whitman MD Work Phone: [facility] [place] Comment on above: Refill Request Start: 08-22-2023 ambulatory [facility] Facility: [facility] Start: 08-02-2023 End: 08-02-2023 Office outpatient visit 40 minutes Karen Goncalves MD Work Phone: [facility] Comment on above: Bronchiectasis witho ut complication (HCC) (Primary Dx); Persistent asthma without complication, unspecified asthma severity; MORAN (dyspnea on exertion) Start: 07-31-2023 Refill Malika Pillai ROBOTICS TECHNICIAN.ELECTROMYOGRAPHIC TECHNICIAN Work Phone: [facility] [place] Comment on above: Refill Request Start: 06-24-2023 Refill Herminio Whitman MD Work Phone: [facility] [place] Start: 06-16-2023 End: 06-16-2023 Patient encounter procedure Herminio Whitman MD Work Phone: [facility] [place] Comment on above: Phlebitis (Primary D x) Start: 06-12-2023 ambulatory Herminio Whitman Facility:[facility] Start: 06-12-2023 Non-patient / Non-visit Dr. Bernice Whitman Work Phone: [facility] Start: 06-12-2023 End: 06-12-[address] Herminio Whitman Work Phone: [facility] Work Phone: Start: 06-12-2023 End: 06-12-[address] Herminio Whitman Work Phone: [facility] Work Phone: Start: 06-11-2023 End: 06-11-2023 Emergency department patient visit [facility] Facility:[facility] Start: 06-11-2023 End: 06-11-2023 Emergency department patient visit [facility] Work Phone: Start: 06-11-2023 End: 06-11-2023 Patient encounter procedure Josh Serrano APRN.CNP Work Phone: [place] [facility] Comment on above: Skin infection (Prim rashaun Dx) Start: 06-06-2023 Refill Herminio Whitman MD Work Phone: [facility] Comment on above: Refill Request Start: 06-01-2023 End: 06-01-2023 Office outpatient visit 25 minutes Karen Goncalves MD Work Phone: [facility] Comment on above: Bronchiectasis witho ut complication (HCC) (Primary Dx); MORAN (dyspnea on exertion); Immunoglobulin deficiency (HCC) Start: 05-05-2023 Telephone encounter Herminio Whitman MD Work Phone: [facility] Comment on above: Bronchiectasis Start: 05-05-2023 End: 05-05-2023 [facility] Comment on above: Bronchiectasis with acute exacerbation (HCC) [J47.1] Start: 05-05-2023 End: 05-05-2023 Patient encounter procedure Fritz Banks MD Work Phone: [facility] Comment on above: Bronchiectasis with acute exacerbation (HCC) (Primary Dx); Sore throat Start: 05-04-2023 Orders Only Mariana Murillo MD Work Phone: [facility] Comment on above: History of lumbar fu cody (Primary Dx); Back pain with left-sided radiculopathy Start: 04-11-2023 End: 04-11-2023 Office outpatient visit 10 minutes Mariana Murillo MD Work Phone: [facility] Comment on above: History of lumbar fu cody (Primary Dx); Back pain with left-sided radiculopathy Start: 03-30-2023 End: 03-30-2023 Patient encounter procedure Herminio Whitman MD Work Phone: [facility] [place] Comment on above: Fatigue, unspecified type (Primary Dx); Personal history of skin cancer; Skin lesion; Anxiety with depression Start: 03-09-2023 Refill Herminio Whitman MD Work Phone: [facility] [place] Comment on above: Refill Request Start: 02-21-2023 End: 02-21-2023 Patient encounter procedure Herminio Whitman MD Work Phone: [facility] [place] Comment on above: Hypertensive chronic kidney disease with stage 1 through stage 4 chronic kidney disease, or unspecified chronic kidney disease (Primary Dx); Essential hypertension, benign; Bronchiectasis without complication (HCC); Lung nodules; Stage 3 chronic kidney disease, unspecified whether stage 3a or 3b CKD (HCC); Acquired hypothyroidism; Fatigue, unspecified type; Adjustment disorder with other symptom Start: 12-01-2022 End: 12-01-2022 Office outpatient visit 15 minutes Karen Goncalves MD Work Phone: [facility] Comment on above: Bronchiectasis witho ut complication (HCC) (Primary Dx) Start: 11-26-2022 End: 11-26-2022 Patient encounter procedure Herminio Whitman MD Work Phone: [facility] [place] Comment on above: Left ear pain (Prima ry Dx) Start: 10-07-2022 End: 10-07-2022 Patient encounter procedure Herminio Whitman MD Work Phone: [facility] [place] Comment on above: Acute cough (Primary Dx); Essential hypertension, benign; Bronchiectasis without complication (HCC); URI, acute Start: 10-04-2022 End: 10-04-2022 Office outpatient visit 40 minutes Karen Goncalves MD Work Phone: [facility] Comment on above: Bronchiectasis witho ut complication (HCC) (Primary Dx); Nasal congestion Start: 09-09-2022 Refill Herminio Whitman MD Work Phone: [facility] [place] Comment on above: Refill Request Start: 08-23-2022 End: 08-23-2022 Subsequent hospital visit by physician [facility] [place] Work Phone: Radiology Comment on above: Chest discomfort [R0 7.89] Start: 07-23-2022 Refill Malika Pillai APRNAngelaELECTROMYOGRAPHIC TECHNICIAN Work Phone: [facility] [place] Comment on above: Refill Request Start: 06-04-2022 End: 06-04-2022 Office outpatient visit 15 minutes Karen Goncalves MD Work Phone: [facility] Comment on above: Bronchiectasis witho ut complication (HCC) (Primary Dx); Immunoglobulin deficiency (HCC) Start: 02-11-2022 End: 02-12-[address] [facility] Start: 01-12-2022 End: 01-12-2022 Subsequent hospital visit by physician [facility] [place] Work Phone: Radiology Comment on above: Bronchitis [J40] Start: 10-21-2021 Transcribe Orders Herminio Avalos MD Work Phone: [facility] Comment on above: Lung nodules (Primar y Dx); Bronchiectasis without complication (HCC) Start: 12-12-2020 End: 12-12-2020 Orders Only Virginia Cooper Work Phone: [facility] Start: 01-02-2020 End: 01-02-2020 Follow-up encounter Mariana Murillo Work Phone: [facility] Comment on above: 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 (Primary Dx) Start: 12-07-2019 End: 12-09-2019 Evaluation and management of inpatient Voodoolouie Lamfrancis Work Phone: [facility] Comment on above: Acute postoperative pain (Primary Dx) Start: 11-23-2019 End: 11-23-2019 Office outpatient visit 40 minutes Mariana Murillo Work Phone: [facility] Preadmission Testing Comment on above: Pre-op examination ( Primary Dx); Spinal stenosis, lumbar region, without neurogenic claudication; Essential hypertension; Hyperlipidemia, unspecified hyperlipidemia type Start: 10-03-2019 End: 10-03-2019 Documentation procedure Mariana Murillo Work Phone: [facility] Start: 09-26-2019 End: 09-26-2019 Office outpatient visit 40 minutes Mariana Murillo Work Phone: [facility] Preadmission Testing Comment on above: Pre-op exam (Primary Dx); Spinal stenosis, lumbar region, without neurogenic claudication; Essential hypertension; Hyperlipidemia, unspecified hyperlipidemia type Start: 09-17-2019 End: 09-17-2019 Documentation procedure Queenie Villanueva [facility] Start: 09-12-2019 End: 09-12-2019 Office outpatient visit 15 minutes Mariana Murillo Work Phone: [facility] Comment on above: History of lumbar fu cody (Primary Dx); Spondylolisthesis, lumbar region; Lumbar foraminal stenosis Start: 2019 End: 2019 Documentation procedure Mariana Murillo Work Phone: [facility] Start: 05-16-2019 End: 05-16-2019 Patient encounter procedure Mariana Murillo Work Phone: [facility] Comment on above: Foraminal stenosis o f lumbar region; History of lumbar fusion; Spondylolisthesis, lumbar region Start: 05-07-2019 End: 05-07-2019 Office outpatient new 20 minutes Mariana Murillo Work Phone: [facility] Comment on above: History of lumbar fu ocdy (Primary Dx); Foraminal stenosis of lumbar region; Spondylolisthesis, lumbar region Start: 11-30-2017 End: 12-01-2017 Evaluation and management of inpatient Rony Guerrero Work Phone: [facility] Start: 11-25-2017 Office/outpatient vi sit, new, level 4 Rony Guerrero Work Phone: [facility]readmission [facility] Procedures Date Procedure Procedure Detail Performing Clinician Start: 04-24-2024 Us pelvic nonobstetr ic image dcmtn limited/f/u Maricel Kennedy ROBOTICS TECHNICIAN.ELECTROMYOGRAPHIC TECHNICIAN Work Phone: Start: 03-05-2024 Adult depression scr eening assessment Herminio Whitman MD Work Phone: Start: 10-17-2023 Ecg routine ecg w/le ast 12 lds w/i&r Jim Renteria MD Work Phone: Start: 10-10-2023 Ecg routine ecg w/le ast 12 lds i&r only [facility] Provider Start: 10-10-2023 INFLUENZA VACCINE, P RSV FREE, AGE 65+ YR, HIGH DOSE, QUADRIVALENT (FLUZONE HIGH-DOSE) Herminio Whitman MD Work Phone: Start: 05-05-2023 Radiologic exam ches t 2 views Fritz Banks MD Work Phone: Start: 05-05-2023 STREP A MOLECULAR (POC) Fritz Banks MD Work Phone: Start: 08-23-2022 Radiologic exam ches t 2 views Herminio Whitman MD Work Phone: Start: 01-12-2022 Radiologic exam ches t 2 views Herminio Whitman MD Work Phone: Start: 12-09-2019 Complete blood count (hemogram) panel - Blood by Automated count Della Mitchell Work Phone: Start: 12-08-2019 Basic metabolic 2000 panel - Serum or Plasma Diamond Edwards Work Phone: Start: 12-08-2019 Complete blood count (hemogram) panel - Blood by Automated count Della Mitchell Work Phone: Start: 12-07-2019 Glucose [Mass/volume ] in Blood Voodoo Sukhdev Yumikomiguel Work Phone: Start: 12-07-2019 Fluoroscopy up to 1 hour physician/qhp time Voodoolouie Murillo Work Phone: Start: 12-07-2019 End: 12-07-2019 POSTERIOR LUMBAR INTERBODY FUSION SINGLE LEVEL Voodoo Sukhdev Parag Work Phone: Start: 12-07-2019 Glucose [Mass/volume ] in Blood Voodoo Sukhdev Lamfrancis Work Phone: Start: 12-06-2019 SCAN OTHER ORDERS Provi jimmy Not In System Start: 11-23-2019 Complete blood count (hemogram) panel - Blood by Automated count Mariana Lamfrancis Work Phone: Start: 11-23-2019 Creatinine [Mass/vol ume] in Serum or Plasma Voodoo Sukhdev Lamfrancis Work Phone: Start: 11-23-2019 Glucose [Mass/volume ] in Serum or Plasma Voodoo Sukhdev Murillo Work Phone: Start: 11-23-2019 Potassium [Moles/vol ume] in Serum or Plasma Mariana Santizo Carolefrancis Work Phone: Start: 11-23-2019 Urinalysis Mariana Santizo Carolefrancis Work Phone: Start: 11-23-2019 URINE CONTAINER Mireya nighat Santizo Carolefrancis Work Phone: Start: 09-26-2019 Complete blood count (hemogram) panel - Blood by Automated count Mariana Murillo Work Phone: Start: 09-26-2019 Creatinine [Mass/vol ume] in Serum or Plasma Mariana Murillo Work Phone: Start: 09-26-2019 Glucose [Mass/volume ] in Serum or Plasma Mariana Murillo Work Phone: Start: 09-26-2019 Potassium [Moles/vol ume] in Serum or Plasma Mariana Murillo Work Phone: Start: 09-26-2019 12 lead ECG Mariana Murillo Work Phone: Start: 11-30-2017 End: 11-30-2017 RIGHT TOTAL KNEE ARTHROPLASTY Rony Guerrero Work Phone: Plan of Treatment Date Care Activity Detail Author Start: 03-15-2028 Diabetes Screening Diabetes Screening [facility] Start: 11-27-2027 Diabetes Screening Diabetes Screening [facility] Start: 09-12-2027 Diabetes Screening Diabetes Screening [facility] Start: 03-05-2027 Diabetes Screening Diabetes Screening [facility] Start: 03-12-2026 End: 03-12-2026 Patient encounter procedure 03/12/2026 12:30 PM EDT Office Visit [facility] [address] [place] [address] [address] [place] [id number] Karen Goncalves MD [address] [place] [address] [address] [place] [address] [facility] Start: 02-21-2026 DIABETES SCREEN DIABETES SCREEN [facility] Start: 02-21-2026 Diabetes Screening Diabetes Screening [facility] Start: 09-17-2025 End: 09-17-2025 Patient encounter procedure 09/17/2025 3:00 PM EDT Office Visit [facility] [address] [place] [place] [id number] Herminio Whitman MD [address] [place] [address] Medicare wellness [facility] [place] Comment on above: Medicare wellness Start: 08-23-2025 End: 08-23-2025 Patient encounter procedure 08/23/2025 11:30 AM EDT Office Visit [facility] [address] [place] [address] [place] [address] Karen Goncalves MD [address] [place] [address] [place] [address] [facility] Start: 08-17-2025 DIABETES SCREEN DIABETES SCREEN [facility] Start: 07-29-2025 COVID-19 Vaccine ( season) COVID-19 Vaccine ( season) [facility] Start: 07-29-2025 [facility] Start: 03-21-2025 End: 03-21-2025 Patient encounter procedure 03/21/2025 1:00 PM EDT Office Visit Dermatology [facility] [address] [place] [address] AndEsperanza prabhakar, ROBOTICS TECHNICIAN.DATA ANALYSIS INTERN [address] [place], [place] [id number] skin lesion Dermatology [facility] Comment on above: skin lesion Start: 03-15-2025 End: 06-14-2025 Basic metabolic 2000 panel - Serum or Plasma [facility] Comment on above: Expected: 03/15/2025, Expires: Start: 03-15-2025 End: 06-14-2025 Erythrocyte sedimentation rate [facility] Comment on above: Expected: 03/15/2025, Expires: Start: 03-15-2025 End: 06-14-2025 T4/FTI/T4U [facility] Comment on above: Expected: 03/15/2025, Expires: Start: 03-15-2025 End: 06-14-2025 Thyrotropin [Units/volume] in Serum or Plasma [facility] Work Phone: Comment on above: Expected: 03/15/2025, Expires: Start: 03-15-2025 End: 03-15-2025 Patient encounter procedure 03/15/2025 10:00 AM EDT Office Visit [facility] [address] [place] [address] Herminio Whitman MD [address] [facility] [place] [id number] 6 month follow up [facility] Comment on above: 6 month follow up Start: 03-05-2025 Anxiety Screening Anxiety Screening [facility] Start: 03-05-2025 Depression Screening Depression Screening [facility] Start: 03-05-2025 RSV Vaccine (1 - 1-dose 60+ series) RSV Vaccine (1 - 1-dose 60+ series) [facility] Comment on above: Postponed from 2000 (Declined at t his time) Start: 03-05-2025 RSV Vaccine (1 - 1-dose 75+ series) RSV Vaccine (1 - 1-dose 75+ series) [facility] Comment on above: Postponed from 2015 (Declined at t his time) Start: 03-05-2025 Shingrix Vaccine (1 of 2) Shingrix Vaccine (1 of 2) [facility] Comment on above: Postponed from 1990 (Declined at t his time) Postponed from 05/25 (Declined at this time) Start: 03-05-2025 Urine microalbumin profile DTaP,Tdap,Td Vaccine (2 - Tdap) [facility] Comment on above: Postponed from 11/28/2012 (Declined at t his time) Start: 02-20-2025 COVID-19 Vaccine (7 - season) COVID-19 Vaccine (7 - season) [facility] Start: 02-20-2025 Covid-19 Vaccine (7 - Moderna risk season) Covid-19 Vaccine (7 - Moderna risk season) [facility] Start: 02-13-2025 End: 02-13-2025 Patient encounter procedure 02/13/2025 3:00 PM EDT Office Visit [facility] [address] [place] [address] [place] [address] Karen Goncalves MD [address] [place] [address] [address] [place] [address] [facility] Start: 02-04-2025 End: 02-04-2025 Patient encounter procedure 02/04/2025 1:00 PM EDT Office Visit [facility] [address] [place] [address] [place] [address] Karen Goncalves MD [address] [place] [address] [address] [place] [address] [facility] Start: 11-28-2024 Advance Directive Discussion Advance Directive Discussion [facility] Start: 11-28-2024 Medicare Advantage Annual Wellness Visit Medicare Advantage Annual Wellness Visit [facility] Start: 11-27-2024 End: 02-26-2025 CBC W Auto Differential panel - Blood [facility] Work Phone: Comment on above: Expected: 11/27/2024, Expires: Start: 11-27-2024 End: 02-26-2025 Comprehensive metabolic 2000 panel - Serum or Plasma [facility] Comment on above: Expected: 11/27/2024, Expires: Start: 11-27-2024 End: 02-26-2025 LIPID PANEL, NONFASTING [facility] Comment on above: Expected: 11/27/2024, Expires: Start: 10-18-2024 Covid-19 Vaccine () Covid-19 Vaccine () [facility] Start: 10-14-2024 End: 01-13-2025 Thyrotropin [Units/volume] in Serum or Plasma THYROID STIMULATING HORMONE Lab Routine Acquired hypothyroidism Expected: 10/14/2024, Expires: 01/13/2025 [facility] Work Phone: Comment on above: Expected: 10/14/2024, Expires: Start: 09-12-2024 End: 12-12-2024 Basic metabolic 2000 panel - Serum or Plasma [facility] Comment on above: Expected: 09/12/2024, Expires: Start: 09-12-2024 End: 12-12-2024 T4/FTI/T4U [facility] Comment on above: Expected: 09/12/2024, Expires: Start: 09-12-2024 End: 12-12-2024 Thyrotropin [Units/volume] in Serum or Plasma [facility] Work Phone: Comment on above: Expected: 09/12/2024, Expires: Start: 09-12-2024 End: 09-12-2024 Patient encounter procedure 09/12/2024 11:00 AM EDT Office Visit [facility] [address] [place] [id number] Herminio Whitman MD [address] [place] [id number] 6 month follow up [facility] Comment on above: 6 month follow up Start: 08-27-2024 DIABETES SCREEN DIABETES SCREEN [facility] Start: 07-29-2024 Covid-19 Vaccine ( season) Covid-19 Vaccine ( season) [facility] Start: 07-29-2024 Covid-19 Vaccine ( season) Covid-19 Vaccine ( season) [facility] Start: 07-29-2024 Influenza vaccination [facility] Start: 06-20-2024 End: 06-20-2024 Patient encounter procedure 06/20/2024 3:40 PM EDT Office Visit [facility] [address] [place] [address] Herminio Whitman MD [address] [place] [id number] t: Small lump on abdomen [facility] Comment on above: t: Small lump on abdomen Start: 05-14-2024 End: 05-14-2024 Patient encounter procedure 05/14/2024 11:30 AM EDT Office Visit General Surgery [address] [place] [address] Jayashree Reyes MD [address] [place] [address] Neoplasm of uncertain behavior of skin of abdomen [D48.5] General Surgery Comment on above: Neoplasm of uncertain behavior of skin o f abdomen [D48.5] Start: 03-05-2024 End: 06-04-2024 Basic metabolic 2000 panel - Serum or Plasma [facility] Work Phone: Comment on above: Expected: 03/05/2024, Expires: Start: 03-05-2024 End: 06-04-2024 Parathyrin.intact [Mass/volume] in Serum or Plasma [facility] Work Phone: Comment on above: Expected: 03/05/2024, Expires: Start: 03-05-2024 End: 06-04-2024 Phosphate [Mass/volume] in Serum or Plasma [facility] Work Phone: Comment on above: Expected: 03/05/2024, Expires: Start: 03-05-2024 End: 06-04-2024 Thyrotropin [Units/volume] in Serum or Plasma [facility] Work Phone: Comment on above: Expected: 03/05/2024, Expires: Start: 03-03-2024 Covid-19 Vaccine ( season) Covid-19 Vaccine ( season) [facility] Start: 02-22-2024 SHINGRIX VACCINE (1 of 2) SHINGRIX VACCINE (1 of 2) [facility] Comment on above: Postponed from 1990 (Declined at t his time) Start: 02-22-2024 Urine microalbumin profile [facility] Comment on above: Postponed from 11/28/2012 (Declined at t his time) Start: 11-01-2023 End: 11-01-2023 Patient encounter procedure 11/01/2023 1:30 PM EST Office Visit [facility] [address] [place] [address] Dr. Ross [address] [place] [phone] Karen Goncalves MD [address] 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 SOB (shortness of breath) Expected: 10/18/2023 (Approximate), Expires: 10/17/2024 [facility] Work Phone: Comment on above: Expected: 10/18/2023 (Approximate), Expi res: 10/17/2024 Start: 10-17-2023 End: 10-17-2023 Patient encounter procedure 10/17/2023 1:00 PM EST Office Visit [facility] [address] [facility] [address] [place] [address] Jim Renteria MD [address] [facility] [address] [place] [address] [facility] Start: 10-10-2023 End: 10-10-2023 CBC W Auto Differential panel - Blood CBC + DIFF Lab Routine SOB (shortness of breath) Expected: 10/10/2023, Expires: 10/10/2023 [facility] Work Phone: Comment on above: Expected: 10/10/2023, Expires: Start: 10-10-2023 End: 10-10-2023 Comprehensive metabolic 2000 panel - Serum or Plasma COMP METABOLIC PANEL Lab Routine Essential hypertension, benign Expected: 10/10/2023, Expires: 10/10/2023 [facility] Work Phone: Comment on above: Expected: 10/10/2023, Expires: Start: 10-10-2023 End: 01-09-2024 Lipid 1996 panel - Serum or Plasma LIPID PANEL BASIC Lab Routine Essential hypertension, benign Expected: 10/10/2023, Expires: 01/09/2024 [facility] Work Phone: Comment on above: Expected: 10/10/2023, Expires: 4 Start: 10-10-2023 End: 10-10-2023 Natriuretic peptide.B prohormone N-Terminal [Mass/volume] in Serum or Plasma NT PRO BNP Lab Routine SOB (shortness of breath) Expected: 10/10/2023, Expires: 10/10/2023 [facility] Work Phone: Comment on above: Expected: 10/10/2023, Expires: 3 Start: 10-10-2023 End: 10-10-2023 Thyrotropin [Units/volume] in Serum or Plasma TSH BLD Lab Routine Acquired hypothyroidism Expected: 10/10/2023, Expires: 10/10/2023 [facility] Work Phone: Comment on above: Expected: 10/10/2023, Expires: 3 Start: 08-02-2023 End: 08-02-2023 Patient encounter procedure 08/02/2023 9:45 AM EDT Office Visit [facility] [address] [place] [address] [place] [phone] Karen Goncalves MD [address] [place] [address] [facility] Start: 07-29-2023 Covid-19 Vaccine ( season) Covid-19 Vaccine ( season) [facility] Start: 07-29-2023 Influenza vaccination [facility] Start: 06-11-2023 .doppler Lower extremity vein [facility] Start: 06-01-2023 End: 06-01-2023 Patient encounter procedure [facility] Start: 05-14-2023 End: 05-14-2023 Patient encounter procedure 05/14/2023 9:30 AM EDT Appointment [facility] [address] [place] [phone] Mariana Murillo MD [address] [facility] [address] [place] [address] [facility] Start: 03-09-2023 COVID-19 VACCINE (5 - Moderna series) COVID-19 VACCINE (5 - Moderna series) [facility] Start: 02-21-2023 End: 04-23-2023 Basic metabolic 2000 panel - Serum or Plasma [facility] Work Phone: Comment on above: Expected: 02/21/2023, Expires: 3 Start: 02-21-2023 End: 04-23-2023 T4/FTI/T4U [facility] Work Phone: Comment on above: Expected: 02/21/2023, Expires: 3 Start: 02-21-2023 End: 04-23-2023 Thyrotropin [Units/volume] in Serum or Plasma [facility] Work Phone: Comment on above: Expected: 02/21/2023, Expires: 3 Start: 12-01-2022 End: 12-01-2022 Patient encounter procedure 12/01/2022 Office Visit Pulmonology Karen Goncalves MD [address] [place] [address] [facility] Start: 11-28-2022 ADVANCE DIRECTIVE DISCUSSION ADVANCE DIRECTIVE DISCUSSION [facility] Start: 11-28-2022 DEPRESSION ASSESSMENT DEPRESSION ASSESSMENT [facility] Start: 10-04-2022 End: 10-04-2022 Patient encounter procedure 10/04/2022 Office Visit Pulmonology Karen Goncalves MD [address] [place] [address] [facility] Start: 07-29-2022 Influenza vaccination [facility] Start: 02-27-2022 COVID-19 Vaccine (4 - Booster for Moderna series) COVID-19 Vaccine (4 - Booster for Moderna series) [facility] Start: 12-24-2021 COVID-19 VACCINE (4 - Booster for Moderna series) COVID-19 VACCINE (4 - Booster for Moderna series) [facility] Start: 11-28-2021 ADVANCE DIRECTIVE DISCUSSION ADVANCE DIRECTIVE DISCUSSION [facility] Start: 11-28-2021 DEPRESSION ASSESSMENT DEPRESSION ASSESSMENT [facility] Start: 07-29-2021 Influenza vaccination Sequential Influenza Vaccine (#1) [facility] Start: 07-29-2020 Influenza vaccination given Sequential Influenza Vaccine (#1) [facility] Start: 04-16-2020 End: 04-16-2020 Office Visit 04/16/2020 Office Visit Neurosurgery [facility] [address] [facility] [address] [place] [address] [phone] [facility] Start: 04-01-2020 End: 01-02-2021 XR Lumbar Spine 2-3 Views (Standard) XR Lumbar Spine 2-3 Views (Standard) Imaging Routine Spinal stenosis of lumbar region with neurogenic claudication Expected: 04/01/2020 (Approximate), Expires: 01/02/2021 [facility] Comment on above: Expected: 04/01/2020 (Approximate), Expi res: 01/02/2021 Start: 01-02-2020 End: 01-02-2020 Follow-Up 01/02/2020 Follow-Up Neurosurgery Mariana Murillo MD [address] [facility] [address] [place] [address] [phone] [facility] Start: 12-07-2019 End: 12-07-2019 Hospital Encounter [facility] [place] [facility] Comment on above: LUMBAR 5-SACRAL 1 FACETECTOMY AND FUSION , REPLACE HARDWARE Start: 10-31-2019 End: 10-31-2019 Follow-Up 10/31/2019 Follow-Up Neurosurgery Mariana Murillo MD [address] [facility] [address] [place] [address] [facility] Start: 10-04-2019 End: 10-04-2019 Hospital Encounter [facility] Comment on above: LUMBAR 5-SACREL 1 FACETECTOMY AND FUSION , REPLACE HARDWARE Start: 07-29-2019 Influenza vaccination given [facility] Start: 2015 Respiratory Syncytial Virus Immunization: Risk, 60-74 Risk, or 75+ (1 - 1-dose 75+ series) Respiratory Syncytial Virus Immunization: Risk, 60-74 Risk, or 75+ (1 - 1-dose 75+ series) [facility] Start: 2015 RSV Vaccine (1 - 1-dose 75+ series) RSV Vaccine (1 - 1-dose 75+ series) [facility] Start: 11-28-2012 Urine microalbumin profile [facility] Start: 2005 Fall risk assessment Falls Risk Assessment [facility] Start: 2005 Pneumococcal vaccination PNEUMOCOCCAL VACCINE AGE 65+ (1 of 2 - PCV13) [facility] Start: 2000 RSV Vaccine (1 - 1-dose 60+ series) RSV Vaccine (1 - 1-dose 60+ series) [facility] Start: 2000 Zoster vacc, sc ZOSTER VACCINE [facility] Work Phone: Start: 1990 Administration of herpes zoster vaccine Zoster Vaccines (1 of 2) [facility] Start: 1990 SHINGRIX VACCINE (1 of 2) SHINGRIX VACCINE (1 of 2) [facility] Start: 1959 Shingrix Vaccine (1 of 2) Shingrix Vaccine (1 of 2) [facility] Start: 1952 Adolescent depression screening assessment Depression Screening (PHQ9) [facility] Start: 1952 COVID-19 Vaccine (1) COVID-19 Vaccine (1) [facility] Start: 1952 Depression screening using PHQ-9 (Patient Health Questionnaire 9) score [facility] Start: 1951 Screening for malignant neoplasm of cervix Cervical Cancer Screening [facility] Start: 1943 History and physical examination, annual for health maintenance Wellness Visit [facility] Start: 1943 Medicare Wellness Visit Medicare Wellness Visit [facility] Start: 1940 Fall risk assessment Falls Risk Assessment [facility] Start: 1940 Protein mass conc Mammogram [facility] Start: 1940 Screening mammography Mammogram [facility] Start: 1940 End: 1940 Screening for osteoporosis DEXA SCAN [facility] Start: 1940 End: 1940 Tetanus vaccination [facility] End: 10-13-2024 12 lead ECG ECG 12 Lead ECG Routine 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 1 Occurrences starting 10/13/2023 until 10/13/2024 [facility] Work Phone: Comment on above: 1 Occurrences starting 10/13/2023 until 10/13/2024 12 lead ECG ECG 12 Lead ECG Routine 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 10/17/2023 12:43 PM EST [facility] Bacteria identified Aer cx Nom (Unsp spec) Urine Aerobic Culture Microbiology Routine Pre-op exam 09/26/2019 11:50 AM EDT [facility] End: 11-26-2023 Bacteria identified in Sputum by Aerobe culture Sputum Aerobic Culture Microbiology Routine Bronchiectasis without complication (HCC) 1 Occurrences starting 10/04/2022 until 11/26/2023 [facility] Comment on above: 1 Occurrences starting 10/04/2022 until 11/26/2023 Chem 7 Chem 7 Routine P reop examination 11/25/2017 10:55 AM [facility] Work Phone: Complete blood count (hemogram) panel - Blood by Automated count CBC Routine Preop examination 11/25/2017 10:55 AM [facility] Work Phone: End: 09-03-2026 Contrast echocardiography Echocardiogram complete w contrast Echocardiography Routine MORAN (dyspnea on exertion) 1 Occurrences starting 09/03/2025 until 09/03/2026 [facility] Work Phone: Comment on above: 1 Occurrences starting 09/03/2025 until 09/03/2026 End: 05-16-2019 CT Lumbar Spine Without Contrast 3D CT Lumbar Spine Without Contrast 3D Imaging Routine Foraminal stenosis of lumbar region History of lumbar fusion Spondylolisthesis, lumbar region Once for 1 Occurrences starting 05/16/2019 until 05/16/2019 [facility] Comment on above: Once for 1 Occurrences starting 05/16/20 19 until 05/16/2019 CT Lumbar Spine With out Contrast 3D CT Lumbar Spine Without Contrast 3D Imaging Routine Foraminal stenosis of lumbar region History of lumbar fusion Spondylolisthesis, lumbar region 05/16/2019 9:59 AM EDT [facility] End: 05-07-2020 CT of lumbar spine without contrast CT Lumbar Spine Without Contrast Imaging Routine Foraminal stenosis of lumbar region History of lumbar fusion Spondylolisthesis, lumbar region 1 Occurrences starting 05/07/2019 until 05/07/2020 [facility] Comment on above: 1 Occurrences starting 05/07/2019 until 05/07/2020 ECG COMPLETE [facility] Work Phone: Comment on above: Ordered: 10/10/2023 End: 12-09-2019 Gastrointestinal pathogens DNA and RNA panel - Stool by CINTHIA with non-probe detection Stool/GI PCR Panel Microbiology Routine Once for 1 Occurrences starting 12/09/2019 until 12/09/2019 [facility] Comment on above: Once for 1 Occurrences starting 12/09/19 20 until 12/09/2019 Influenza virus A an d B RNA and SARS-CoV-2 (COVID-19) N gene panel - Respiratory specimen by CINTHIA with probe detection COVID WITH FLUA+B, ROUTINE Microbiology Routine Acute cough URI, acute 10/07/2022 12:[address] 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 Culture Microbiology Routine Bronchiectasis without complication (HCC) 1 Occurrences starting 10/04/2022 until 11/26/2023 [facility] Work Phone: Comment on above: 1 Occurrences starting 10/04/2022 until 11/26/2023 Patient Education ED Thrombophle bitis, Superficial [facility] Work Phone: Patient referral [facility] Work Phone: End: 04-14-2026 XR Cervical spine AP and Lateral and oblique XR CERV OTHER 4V AP/LAT/OBL Radiology Routine Headache, unspecified headache type Neck pain 1 Occurrences starting 03/15/2025 until 04/14/2026 [facility] Comment on above: 1 Occurrences starting 03/15/2025 until 04/14/2026 XR Cervical spine AP and Lateral and oblique XR CERV OTHER 4V AP/LAT/OBL Radiology Routine Headache, unspecified headache type Neck pain 03/15/2025 11:22 AM EDT [facility] End: 05-07-2020 XR Lumbar Spine Standard with Flex/Ext 4+ Views XR Lumbar Spine Standard with Flex/Ext 4+ Views Imaging Routine Foraminal stenosis of lumbar region History of lumbar fusion Spondylolisthesis, lumbar region 1 Occurrences starting 05/07/2019 until 05/07/2020 [facility] Comment on above: 1 Occurrences starting 05/07/2019 until 05/07/2020 End: 04-11-2024 XR Lumbar Spine Standard with Flex/Ext 4+ Views XR Lumbar Spine Standard with Flex/Ext 4+ Views Imaging Routine History of lumbar fusion Back pain with left-sided radiculopathy 1 Occurrences starting 04/11/2023 until 04/11/2024 [facility] Comment on above: 1 Occurrences starting 04/11/2023 until 04/11/2024 [facility] Immunizations Immunization Date Immunization Notes Care Provider [facility] 08-26-2025 influenza, high dose seasonal, preservative-free Karen Goncalves MD Work Phone: [facility] 08-23-2024 influenza, high dose seasonal, preservative-free Karen Goncalves MD Work Phone: [facility] 08-23-2024 Moderna COVID-19 vac cine ( 12 years or older) Karen Goncalves MD Work Phone: [facility] 08-23-2024 influenza virus vacc ine, unspecified formulation Herminio Whitman MD Work Phone: [facility] 11-02-2023 COVID-19 vaccine, ag e 12+ yr, season (MODERNA) Herminio Whitman MD Work Phone: [facility] Work Phone: 10-10-2023 influenza (HD-IIV4) vaccine, age 65+ yr, high dose, quadrivalent, PF (FLUZONE HIGH-DOSE) Herminio Whitman MD Work Phone: [facility] 10-10-2023 influenza virus vacc ine, unspecified formulation Herminio Whitman MD Work Phone: [facility] 11-08-2022 COVID-19 booster vaccine, age 12+ yr, bivalent (MODERNA) Herminio Whitman MD Work Phone: [facility] 08-23-2022 influenza, high-dose , quadrivalent vaccine (FLUZONE HIGH DOSE QUADRIVALENT) Herminio Whitman MD Work Phone: [facility] 08-23-2022 influenza virus vacc ine, unspecified formulation Herminio Whitman MD Work Phone: [facility] 08-21-2021 influenza, high-dose , quadrivalent vaccine (FLUZONE HIGH DOSE QUADRIVALENT) Malika Pillai ROBOTICS TECHNICIAN.ELECTROMYOGRAPHIC TECHNICIAN Work Phone: [facility] 01-23-2021 COVID-19 vaccine, fu ll dose (MODERNA) Malika Pillai ROBOTICS TECHNICIAN.ELECTROMYOGRAPHIC TECHNICIAN Work Phone: [facility] 12-26-2020 COVID-19 vaccine, fu ll dose (MODERNA) Malika Pillai ROBOTICS TECHNICIAN.ELECTROMYOGRAPHIC TECHNICIAN Work Phone: [facility] 08-26-2020 influenza, high-dose , quadrivalent vaccine (FLUZONE HIGH DOSE QUADRIVALENT) Malika Pillai ROBOTICS TECHNICIAN.ELECTROMYOGRAPHIC TECHNICIAN Work Phone: [facility] 09-07-2019 influenza, high dose seasonal, preservative-free Malika Pillai ROBOTICS TECHNICIAN.ELECTROMYOGRAPHIC TECHNICIAN Work Phone: [facility] Work Phone: 09-04-2018 influenza, high dose seasonal, preservative-free Karen Goncalves MD Work Phone: [facility] 09-05-2017 influenza, injectabl e, quadrivalent, contains preservative Malika Pillai ROBOTICS TECHNICIAN.ELECTROMYOGRAPHIC TECHNICIAN Work Phone: [facility] Work Phone: 08-28-2017 seasonal influenza, intradermal, preservative free Karen Goncalves MD Work Phone: [facility] 01-27-2017 pneumococcal conjuga te vaccine, 13 valent Malika Pillai ROBOTICS TECHNICIAN.ELECTROMYOGRAPHIC TECHNICIAN Work Phone: [facility] 09-21-2016 influenza, high dose seasonal, preservative-free Malika Pillai ROBOTICS TECHNICIAN.ELECTROMYOGRAPHIC TECHNICIAN Work Phone: [facility] 11-28-2015 pneumococcal polysaccharide vaccine, 23 valent Karen Goncalves MD Work Phone: [facility] 08-26-2015 influenza, high dose seasonal, preservative-free Malika Pillai ROBOTICS TECHNICIAN.ELECTROMYOGRAPHIC TECHNICIAN Work Phone: [facility] 09-16-2014 influenza, seasonal, injectable Malika Pillai ROBOTICS TECHNICIAN.ELECTROMYOGRAPHIC TECHNICIAN Work Phone: [facility] 09-13-2013 influenza virus vacc ine, unspecified formulation Malika Pillai ROBOTICS TECHNICIAN.ELECTROMYOGRAPHIC TECHNICIAN Work Phone: [facility] 09-08-2012 influenza virus vacc ine, whole virus Malika Pillai ROBOTICS TECHNICIAN.ELECTROMYOGRAPHIC TECHNICIAN Work Phone: [facility] 09-08-2012 influenza, seasonal, injectable Karen Goncalves MD Work Phone: [facility] 10-14-2008 pneumococcal polysaccharide vaccine, 23 valent Malika Pillai ROBOTICS TECHNICIAN.ELECTROMYOGRAPHIC TECHNICIAN Work Phone: [facility] 11-28-2002 diphtheria and tetan us toxoids, adsorbed for pediatric use Malika Pillai ROBOTICS TECHNICIAN.ELECTROMYOGRAPHIC TECHNICIAN Work Phone: [facility] influenza virus vacc ine, unspecified formulation Mariana Murillo [facility] influenza virus vacc ine, unspecified formulation Rishi Carson [facility] Payers Date Payer Category Payer Self-pay [id number] 2021 Medicare (Managed Care) [employer]NA ME DICARE [id number] 2016 Medicare AETNA MANAGED ME DICARE AETNA MEDICARE PLAN (PPO) [id number] 2016-Present [id number] 2016 Medicare AETNA MANAGED ME DICARE AETNA MEDICARE PLAN (PPO) [id number] 2016-Present [id number] 2016 Medicare [id number] 2016 Medicare PPO AETNA MEDICARE P GERMAN (PPO) [id number] 2016 Medicare [id number] 1940 Unknown [id number]. 902 1940 Unknown [id number] [id number]. 902 1940 Unknown [id number] [id number]. 900 1940 Unknown [id number] [id number]. 900 1940 Unknown [id number] [id number]. 900 1940 Unknown [id number] [id number]. 900 1940 Unknown [id number] [id number]. 902 1940 Unknown [id number] [id number]. 903 1940 Unknown [id number] [id number]. 903 1940 Unknown [id number] [id number]. 903 Medicare [id number] Unknown [id number] [id number]. 462 Unknown [id number] [id number]. 462 Unknown [id number] [id number]. 462 Unknown [id number] [id number]. 462 Unknown [id number]. 462 Social History Date Type Detail Facility Start: 11-25-2017 End: 05-24-2024 Tobacco smoking status NHIS Former smoker [facility] Start: 11-25-2017 End: 09-03-2025 Cigarettes smoked current (pack per day) - Reported [facility] Work Phone: Start: 1940 Sex Assigned At Not on file [facility] Work Phone: Start: 11-25-2017 End: 10-04-2022 Tobacco Comment in college [facility] Start: 05-11-2019 Alcohol Comment one or more times a week [facility] Start: 09-12-2019 End: 09-03-2025 Alcohol intake Current drinker of alcohol (finding) [facility] Start: 04-12-2020 End: 05-24-2024 Tobacco use and exposure Never used [facility] Start: 10-27-1983 End: 10-27-1993 History of tobacco use Cigarette Smoker [facility] Start: 12-13-2021 End: 04-10-2023 Exposure to SARS-CoV-2 (event) Not sure [facility] Start: 10-27-1983 End: 10-27-1993 History of tobacco use Current smoker [facility] Start: 08-19-2021 History SDOH Alcohol Frequency 4 [facility] Start: 08-19-2021 History SDOH Alcohol Std Drinks 1 [facility] Start: 08-19-2021 History SDOH Social Connections Phone 5 [facility] Start: 08-19-2021 History SDOH Social Connections Get Together 2 [facility] Start: 08-19-2021 History SDOH Physical Activity DPW 0 [facility] Start: 08-19-2021 History SDOH Stress 3 [facility] Start: 08-18-2021 Education 18 [facility] Start: 06-21-2019 End: 08-23-2022 Tobacco Comment ETS: Father in childhood home, at patient age 5. No ETS in adult homes. [facility] Start: 12-01-2022 End: 09-03-2025 Tobacco use panel [facility] Work Phone: Start: 09-24-2019 Gender identity Identifies as female gender (finding) [facility] Start: 09-24-2019 Sexual orientation Heterosexual (finding) [facility] Start: 10-29-2012 Adult Depression Screening Assessment 0 [facility] Work Phone: Start: 06-11-2023 Tobacco smoking status NHIS Unknown if ever smoked [facility] Start: 1940 Sex Assigned At Female [facility] Do you belong to any clubs or organizations such as jewish groups, unions, fraternal or athletic groups, or school groups? No [facility] Are you now , , , , never or living with a partner? [facility] How often to you hav e a drink containing alcohol? 2-3 time sa week [facility] How many standard dr inks containing alcohol do you have on a typical day? 1 or 2 [facility] How often do you hav e 6 or more drinks on 1 occasion? Never [facility] Do you feel stress - tense, restless, nervous, or anxious, or unable to sleep at night because your mind is troubled all the time - these days [OSQ] To some extent [facility] (I/We) worried wheth er (my/our) food would run out before (I/we) got money to buy more. Never true [facility] History of tobacco use Passive smoker [facility] Are you now , , , , never or living with a partner? Refused [facility] Medical Equipment Procedure Code Equipment Code Equipment Origin al Text Equipment Identifier Dates Cement Bone Radiopaque Simplex P Single Dose - [id number] Start: 11-30-2017 Insert Sz2-11 Ti bial Cr X3 Triathlon - [id number] Start: 11-30-2017 Component 2 Fem Cr Rt Cemented Triathlon - [id number] Start: 11-30-2017 Patella 32mm Asymmetric X3 Triathlon - [id number] Start: 11-30-2017 Baseplate 2 Tib Primary Triathlon - [id number] Start: 11-30-2017 Cement Bone Radiopaque Simplex P Single Dose - [id number] Start: 11-30-2017 Insert Sz2-11 Ti bial Cr X3 Triathlon - [id number] Start: 11-30-2017 Component 2 Fem Cr Rt Cemented Triathlon - [id number] Start: 11-30-2017 Patella 32mm Asymmetric X3 Triathlon - [id number] Start: 11-30-2017 Baseplate 2 Tib Primary Triathlon - [id number] Start: 11-30-2017 Graft 5cc Putty Dbm [place] - [id number] Start: 12-07-2019 Graft 3 X 3in Du ral Duragen Plus - [id number] Start: 12-07-2019 Screw 6.5 35mm Polyaxial Pedicle Excella Ii - [id number] Start: 12-07-2019 Screw 6.5 40mm Polyaxial Pedicle Excella Ii - [id number] Start: 12-07-2019 Hemostat 2 X 4in Surgicel Fibrillar - [id number] ()[id number], [id number] FDA Start: 12-07-2019 Hemostat 8 X 12. 5cm X 2mm Surgifoam Gelatin Sponge - [id number] ()[id number] [id number] FDA Start: 12-07-2019 Cap Locking Exce lla Ii - [id number] Start: 12-07-2019 Deo 5.5 X 35mm B ent Excella Ii - [id number] Start: 12-07-2019 Functional Status Date Assessment Result Facility 07-13-2018 Are you deaf, or do you have serious difficulty hearing No 07/13/2018 6:30 PM CRISTOPHERT Nai Alegre MD No [facility] 07-13-2018 Are you blind, or do you have serious difficulty seeing, even when wearing glasses No 07/13/2018 6:30 PM CRISTOPHERT Nai Alegre MD No [facility] 07-13-2018 Do you have serious difficulty walking or climbing stairs No 07/13/2018 6:30 PM CRISTOPHERT Nai Alegre MD No [facility] 07-13-2018 Do you have difficul ty dressing or bathing No 07/13/2018 6:30 PM CRISTOPHERT Nai Alegre MD [facility] 07-13-2018 Because of a physica l, mental, or emotional condition, do you have difficulty doing errands alone such as visiting a physician's office or shopping No 07/13/2018 6:30 PM EDT Nai Alegre MD No [facility] Mental Status Date Assessment Result Facility 07-13-2018 Because of a physica l, mental, or emotional condition, do you have serious difficulty concentrating, remembering, or making decisions No 07/13/2018 6:30 PM EDT Nai Alegre MD No [facility] Clinical Notes 08-22-2020 to 10-03-2025 Karen Goncalves MD - 09/03/2025 11:30 AM EDTTelephone Encounter - Vidal Larios LPN - 07/16/2025 8:26 AM EDTTelephone Encounter - Vidal Larios LPN - 07/16/2025 8:26 AM EDTPatient Instructions Note Date & Type Note Facility 10-03-2025 Note HNO ID: [id number] Author: NATHALY JENKINS APRN.DATA ANALYSIS INTERN Service: ? Author Type: Nurse Practitioner Type: Progress Notes Filed: 10/03/2025 15:02 Note Text: This is a 85 year old female who presents today with: Right shoulder pain Nurse triage note today: Pt reports she has been having right shoulder pain for a while. Has seen provider's for this, prescribed prednisone which helped but it keeps returning. Reports she has limited ROM and when lifting arm half way it triggers the pain. If she holds the arm close to her side it does not hurt. Reports the pain is from the right elbow to the right shoulder, but mostly the shoulder. Has had xrays done. Reports the right shoulder was better when she saw Dr. Whitman on 09/17/25. Scheduled same day appt with Charito Jenkins. No same day openings in pcp triad today. HISTORY OF PRESENT ILLNESS: Jayashree is a patient of Dr Montelongo who was seen by this provider end of July, about 2 weeks after she tripped going up steps and braced herself with her right arm. Xray did show some degenerative changes, but no acute injuries. Jayashree had relief from a prednisone taper but feels it slowly starting to become more painful again and has significantly decreased ROM, stating she couldn't even open her car door the other day. Weakness and decreased ROM in front of her and to the side, and is unable to do posterior movements. Pain is anterior shoulder mostly but she gets tricep pain down back of the arm as well with certain movements. Has not had good effectiveness in the past with PT, would prefer referall to contract law specialist and if able, an MRI to assess for rotator cuff injury PAST MEDICAL HISTORY: PAST MEDICAL HISTORY Diagnosis Date BCC (basal cell carcinoma) 08/26/09 face Depression 09/17/2025 Essential hypertension, benign Foraminal stenosis of lumbar region 1997 MRI History of lumbosacral spine surgery 12/07/2019 1. L5-S1 posterolateral arthrodesis. 2. L5-S1 laminectomy, medial facetectomy, bilateral foraminotomy. 3. 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 MRI 1997 Unspecified hypothyroidism Hypothyroidism PAST SURGICAL HISTORY Procedure Laterality Date ANESTHESIA EYELID RECONSTRUCTIVE PROCEDURE ARTHROSCOPY KNEE DIAGNOSTIC W/WO SYNOVIAL BX SPX Right Arthroscopy, knee LAMINECTOMY W/O FFD 11/29 VERT SEG LUMBAR 2001 Laminectomy, lumbar fusion x2 SKIN BX, 1 LESION Melanoma ressection TOTAL KNEE REPLACEMENT Right Orthopeadic [facility] [place] ALLERGIES Erythromycin, Opioids - Morphine Analogues, Sulfa (Sulfonamide Antibiotics), Ciprofloxacin, Levaquin [Levofloxacin], Penicillin G, Tetracycline, and Tramadol MEDICATIONS Current Outpatient Medications Medication Sig dilTIAZem CD (CARDIZEM CD, CARTIA XT) 120 mg 24 hr capsule Take 1 capsule by mouth two times a day. sertraline (ZOLOFT) 25 mg tablet Take 1 tablet by mouth daily at bedtime. losartan (COZAAR) 100 mg tablet Take 1 tablet by mouth once daily. labetalol (TRANDATE) 100 mg tablet Take 1 tablet by mouth once daily. levothyroxine (SYNTHROID) 75 mcg tablet Take 1 tablet by mouth once daily. Except 1 day a week take half a tablet. Take on empty stomach. For Thyroid ADVAIR HFA 115-21 mcg/actuation inhaler Inhale 2 Puffs as instructed two times a day. atorvastatin (LIPITOR) 10 mg tablet Take 1 tablet by mouth once daily. Cholecalciferol, Vitamin D3, 50 mcg (2,000 unit) cap Take 1 capsule by mouth. albuterol (PROVENTIL) 2.5 mg /3 mL (0.083 %) nebulizer solution Use 3 mL via nebulizer as needed for wheezing/shortness of breath. immun glob G,IgG,/gly/IgA ov50 (GAMMAGARD LIQUID INJECTION) by INJECTION(UNSPECIFIED PARENTERAL ROUTES) route. Infusion every 4 wks acetaminophen (TYLENOL) 500 mg tablet Take 1,000 mg by mouth three times daily as needed. No current facility-administered medications for this visit. FAMILY HISTORY Problem Relation Age of Onset Hypertension Mother Heart Mother Stroke Mother Cancer Father brain No Known Problems Brother Rheumatologic disease Daughter Rh arthritis. SOCIAL HISTORY[1] REVIEW OF SYSTEMS See HPI EXAM: BP 118/64 (BP Site: Left Arm, BP Position: Sitting, BP Cuff Size: Regular Adult) Pulse 76 Resp 14 Wt 67.1 kg (148 lb) SpO2 93% BMI 28.68 kg/m? PHYSICAL EXAM: General Appearance: Well appearing, alert, in no acute distress, well-hydrated, well nourished.. Musculoskeletal: ROM limited: flexion right shoulder 90 degrees or less; extension is un (more content not included)... [facility] 09-17-2025 Note HNO ID: [id number] Author: HERMINIO WHITMAN MD Service: ? Author Type: Physician Type: Progress Notes Filed: 09/17/2025 15:40 Note Text: Jayashree Ferguson is a 85 year old female here for a Medicare wellness visit. 1007} Medicare Health Risk Assessment General Health fair Exercise: Minutes/Day no Exercise: Days/Week no Alcohol: Daily Use Occasional Alcohol: Drinks/Day 1 Alcohol: 6 or more drinks no Feel off balance no Concerns: Teeth/Dentures no Concerns: Sexual function no Troubled by feelings no Frequency: Eating healthy diet yes ADLs requiring help no Safety precautions in home/vehicle yes Smoke, vape, chews tobacco no Difficulty hearing good Difficulty seeing good Current Providers Specialists: I have reviewed specialist-related care of the patient in the medical record. Current care team: Patient Care Team: Herminio Whitman MD as PCP - General (Family Medicine) Edith Alexis, TRENT.DATA ANALYSIS INTERN as Hand Polisher (Family Medicine) Maricel Kennedy APRN.LESLEY as Hand Polisher ([facility]) Dr Olmos, optho Dr Goncalves, pulmonary Dr York, derm Dr Wilkinson, funeral car chauffeur. Medical/Family history review Reviewed and updated problem list, medical/surgical/family/social history, medications, and allergies. Opioid use review Prescribed: No opioid use on file in the last 90 days Patient-reported: No opioid use on file in the last 90 days Depression screening Based on score and interview, patient is: Not at risk for depression Anxiety screening Based on score and interview, patient is: Not at risk for anxiety Cognitive screening Mini Cog Score: 5 Cognitive screening reviewed and No further action needed (score 3-5). Functional Observation Was the patient's Timed Up AND Go test unsteady or >= 12 seconds? No Advance Directives Surrogate decision maker and/or advance care plan documented Measurements BP 108/62 Pulse 71 Ht 153 cm (5' 0.24) Wt 67.6 kg (149 lb) SpO2 96% BMI 28.87 kg/m? Vision Screening: Follows with optometry/ophthalmology ADDITIONAL INFO: Jayashree is an 85-year-old female with a history of bronchiectasis, lung nodules, HTN, CKD stage 3a, hypothyroidism, and immunodeficiency, presenting for an annual wellness visit, with additional complaints of right shoulder pain and hoarseness. Annual Wellness Exam: - General health: Fair. - No formal exercise; limited by dyspnea. - Alcohol consumption: 1 drink/day, several days/week. - No issues with balance, dental health, or sexual functioning. - No concerns with mood or feelings. - Follows a healthy diet. - Independent with ADLs. - Follows safety precautions at home and in vehicle. - No tobacco use. - Hearing: Normal. - Vision: Normal; wears glasses, managed by Dr. Olmos (ophthalmology). - Recent dermatology visit with Esperanza Tian NP; does not plan to return due to location inconvenience. - Sees Dr. Langford (funeral car chauffeur) for GammaGard infusions. - No abnormal Pap smears. - No ear pain, eye discomfort, or mouth sores. - No neck lumps, bumps, or tenderness; neck stiffness attributed to arthritis. - No chest pain or palpitations. - No changes in bowel movements, hematuria, dysuria, or leg edema. Bronchiectasis: - Managed by Dr. Karen Goncalves (pulmonology). - No new cough or wheezing. - Recent pulmonary evaluation noted clear lungs. - Dyspnea progressively worsening; limited physical activity. - Recent echocardiogram ordered by make up arranger. Right Shoulder Pain: - Chronic right shoulder pain, attributed to rotator cuff injury. - Recent evaluation by DISTRIBUTION TRANSFORMER ASSEMBLER; prescribed prednisone with temporary relief. - Aggravated by lifting objects, such as a laundry basket. - Recent X-rays showed no significant abnormalities. - Pain improved with prednisone; not considering orthopedic referral at this time. Hoarseness: - Intermittent hoarseness; uncertain etiology. - No associated heartburn. Benign Essential Tremor: - Believes sertraline exacerbates tremor. - Interested in adjusting sertraline dosage to alleviate tremor symptoms. HTN: - Managed with Lipitor, Cardizem, labetalol, and losartan. - Requests refill for Cardizem. CKD Stage 3a: - Recent labs show stable kidney function. - Undergoes blood work every 3 months for infusions. Hypothyroidism: - Managed with levothyroxine. - No recent changes in energy levels. Immunodeficiency: - Managed with GammaGard infusions. Depression: - Managed with sertraline 50 mg. - Reports sertraline helps with mood stabilization. - Recent stressors include daughter's amputation. - Denies feeling nervous, anxious, or on edge; experiences waves of worry. - Reports little interest or pleasure in activities several days a week; denies feeling down, depressed, or hopeless. ROS: Constitutional: (+) fatigue Eyes: (-) visual disturbance Ears/Nose/Mouth/Throat: (+) hoarseness, (-) hearing loss, (-) dental problems Neck: (+ (more content not included)... [facility] 09-03-2025 History of Present illness Narrative Assessment/Plan: Diagnoses and all orders for this visit: Bronchiectasis without complication (HCC) - Advair HFA 115-21 mcg/actuation inhaler; Inhale 1 (one) puff 2 (two) times a day Rinse mouth after each use . MORAN (dyspnea on exertion) - Echocardiogram complete w contrast; Future Chronic cough Immunoglobulin deficiency (HCC) Bronchiectasis is stable. She has had long standing chronic cough and MORAN. The symptoms are not acutely changed but she has noticed they have both been steadily worsening over time. Her January 2025 CXR did not show any acute changes other then some very, very mild pleural thickening. I did order an updated TTE. We discussed pulm rehab. She may want to try this again if the specific staff member is gone (she will call if she wants me to put a referral in). We discussed the oscillation vest for the cough. She wishes to hold off. Follow up in 6 months. HISTORY Jayashree Ferguson is a 85 y.o. 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 Dec 2021 labs revealed low IgG, IgM, and Ig A levels. I did refer her to Dr Langford. Labs for CTD (in 2020 and 2021) were negative. January 2022 PFT - mild restriction January 2022 methacholine - negative (FEV1 dropped 17%) January [address] - mild lower lobe bronchiectasis and some plugging. Exacerbations: October 2024 Treatment: Acapella 20 exhalations BID Symbicort 2 puffs BID . changing to Advair 115 HFA today 2 puffs BID Albuterol nebs every 4 hours prn (stopped BID dosing April 2024). She started immunoglobulin infusions in February 2022.. Previous treatments: Referral to pulm rehab to [facility] in 2022. She did not complete this due to issues with staff She does have a chronic cough. She does feel her cough and MORAN are slowly worsening over time. She can do her ADLs and sleep. She does not feel her cough is intrusive. SHe wishes she did not have to deal with it. The cough does seem to be a little productive now. She is on steroids now for her right shoulder. It did not help the cough or the SOB. She does try to stay active. No weight loss. No fever. No sore throat or thrush Current Outpatient Medications: albuterol (PROVENTIL) 2.5 mg /3 mL (0.083 %) nebulizer solution, USE 1 VIAL IN NEBULIZER AT LEAST TWICE DAILY, USE 1 TREATMENT EVERY 4 HOURS NEEDED FOR SHORTNESS OF BREATH/COUGH. ICD10 is J47.9. RUN THIS THROUGH MEDICARE PART B. ., Disp: 180 mL, Rfl: 12 atorvastatin (LIPITOR) 10 MG tablet, Take 1 (one) tablet (10 mg total) by mouth nightly ., Disp: , Rfl: cholecalciferol, vitamin D3, 2,000 unit cap, Take 1 (one) capsule by mouth every evening ., Disp: , Rfl: diltiazem (TIAZAC) 120 MG 24 hr capsule, Take 1 (one) capsule (120 mg total) by mouth 2 (two) times a day ., Disp: , Rfl: labetalol (NORMODYNE) 100 MG tablet, Take 1 (one) tablet (100 mg total) by mouth every morning ., Disp: , Rfl: levothyroxine (SYNTHROID, LEVOTHROID) 75 MCG tablet, Take 1 (one) tablet (75 mcg total) by mouth 5 (five) times a week Tuesday through Tuesday ., Disp: , Rfl: levothyroxine (SYNTHROID, LEVOTHROID) 75 MCG tablet, Take 0.5 (one-half) tablet (37.5 mcg total) by mouth twice weekly on Tuesday and Tuesday ., Disp: , Rfl: losartan (COZAAR) 100 MG tablet, Take 1 (one) tablet (100 mg total) by mouth every morning ., Disp: , Rfl: MUCUS CLEARING DEVICE MIS, by Miscellaneous route Order sent to [facility] 01/25/22 ., Disp: , Rfl: nebulizer accessories Kit, Use as directed ., Disp: 2 kit, Rfl: 0 sertraline (ZOLOFT) 25 MG tablet, Take 1 (one) tablet (25 mg total) by mouth daily ., Disp: , Rfl: therapeutic multivitamin (THERAGRAN) tablet, Take 1 (one) tablet by mouth every evening ., Disp: , Rfl: Advair HFA 115-21 mcg/actuation inhaler, Inhale 1 (one) puff 2 (two) times a day Rinse mouth after each use ., Disp: 36 g, Rfl: 4 fluticasone propionate (FLONASE) 50 mcg/actuation nasal spray, Instill 2 (two) sprays into each nostril daily . (Patient not taking: Reported on 09/03/2025 .), Disp: 16 g, Rfl: 11 Allergies as of 09/03/2025 - Reviewed 09/03/2025 Allergen Reaction Noted Sulfa (sulfonamide antibiotics) Anaphylaxis 11/25/2017 Penicillins Swelling and Rash 11/25/2017 Cipro [ciprofloxacin hcl] Other (See Comments) 01/25/2022 Opioids - morphine analogues GI Intolerance 11/25/2017 Immunization History Administered Date(s) Administered DT 11/28/2002 Influenza HD-IIV3 (FLUZONE HIGH DOSE) 65 years old or greater - syringe 08/26/2015, 09/21/2016, 09/07/2019, 08/23/2024, 08/26/2025 Influenza IIV3 high dose 65 and Older 09/04/2018 Influenza IIV4 high dose 65 and Older 08/26/2020, 08/21/2021, 08/23/2022, 10/10/2023 Influenza Split Preservative Free ID 08/28/2017 Influenza, Injectable, Quadrivalent 09/05/2017 Influenza, Unspecified 09/13/2013 Moderna Bivalent Booster:6-11 YRS 0.25mL; 12+YRS 0.5mL 11/08/2022 Moderna COVID-19 vaccine ( 12 years or older) 11/02/2023, 08/23/2024 Moderna SARS-CoV-2 Vaccination 12/26/2020, 01/23/2021, 10/29/2021 Pneumococcal Conjugate 13-Valent (Prevnar 13) 01/27/2017 Pneumococcal Polysaccharide (Pneumovax 23) 10/14/2008, 11/28/2015 influenza IIV3 (FLUZONE) 6 months old or greater - multi-dose vial 09/08/2012, 09/16/2014 Past Medical History: Diagnosis Date Anxiety Arthritis Back pain Bladder problem freq / leakage Breast cyst Breast mass Bronchitis Cancer (HCC) melanoma Cataract removed Complication of anesthesia Depression Disease of thyroid gland History of echocardiogram History of stress test Hyperlipidemia Hypertension Hypothyroidism Irritable bowel syndrome Lumbar foraminal stenosis Measles Osteoporosis Pneumonia PONV (postoperative nausea and vomiting) Pulmonary nodule SOB (shortness of breath) Thyroid dysfunction Past Surgical History: Procedure Laterality Date ARTHROPLASTY KNEE TOTAL Right 11/30/2017 Procedure: RIGHT TOTAL KNEE ARTHROPLASTY ; Surgeon: Rony Guerrero MD; Location: [facility] Main OR; Service: Orthopedic BACK SURGERY COLONOSCOPY JOINT REPLACEMENT lymphectomy POSTERIOR LUMBAR INTERBODY FUSION SINGLE LEVEL N/A 12/07/2019 Procedure: LUMBAR FIVE-SACRAL ONE FACETECTOMY AND FUSION, REPLACE HARDWARE; Surgeon: Mariana Murillo MD; Location: [facility] NEURO OR; Service: Neurological SKIN GRAFT SPINAL FUSION TONSILLECTOMY Family History Problem Relation Age of Onset Heart disease Mother Stroke Mother Brain cancer Father Social History Socioeconomic History Marital status: Tobacco Use Smoking status: Former Current packs/day: 1.00 Average packs/day: 1 pack/day for 4.0 years (4.0 ttl pk-yrs) Types: Cigarettes Passive exposure: Past Smokeless tobacco: Never Tobacco comments: in college Vaping Use Vaping status: Never Used Substance and Sexual Activity Alcohol use: Yes Alcohol/week: 3.0 standard drinks of alcohol Types: 3 Glasses of wine per week Comment: one or more times a week Drug use: Never Sexual activity: Not Currently Social Drivers of Health Food Insecurity: No Food Insecurity (10/09/2023) Received from [facility] Hunger Vital Sign Worried About Running Out of Food in the Last Year: Never true Ran Out of Food in the Last Year: Never true Transportation Needs: No Transportation Needs (10/09/2023) Received from [facility] PRAPARE - Transportation Lack of Transportation (Medical): No Lack of Transportation (Non-Medical): No Physical Activity: Patient Declined (10/09/2023) Received from [facility] Exercise Vital Sign Days of Exercise per Week: Patient declined Minutes of Exercise per Session: Patient declined Stress: Patient Declined (10/09/2023) Received from [facility] [place] [employer] - Occupational Stress Questionnaire Feeling of Stress : Patient declined Social Connections: Unknown (10/09/2023) Received from [facility] Social Connection and Isolation Panel [NHANES] Frequency of Communication with Friends and Family: More than three times a week Frequency of Social Gatherings with Friends and Family: More than three times a week Attends Voodoo Services: Patient declined Active Member of Clubs or Organizations: Patient declined Attends Club or Organization Meetings: Patient declined Marital Status: Patient declined Housing Stability: Low Risk (10/09/2023) Received from [facility] Housing Stability Vital Sign Unable to Pay for Housing in the Last Year: No Number of Places Lived in the Last Year: 1 Unstable Housing in the Last Year: No Vitals: 09/03/25 1118 BP: (!) 165/88 BP Location: Right arm Patient Position: Sitting BP Cuff Size: Adult Pulse: 69 Resp: 16 SpO2: 96% Weight: 67.1 kg (148 lb) Height: 5' EXAM: Gerneral: alert, oriented x 3, NAD. 148 lbs. 143 lbs January 2025. Eyes: clear conjunctiva ENT: Not hoarse. CVS: RRR, no MGR, no JVD or edema Pulm: Clear. No wheezing, crackles, no dullness. Not labored. No cyanosis or clubbing. Breath sounds and chest wall movement are normal. Psych: alert, appropriate. Pleasant documented in this encounter [facility] 09-03-2025 Note Assessment/Plan: Diagnoses and all orders for this visit: Bronchiectasis without complication (HCC) - Advair HFA 115-21 mcg/actuation inhaler; Inhale 1 (one) puff 2 (two) times a day Rinse mouth after each use . MORAN (dyspnea on exertion) - Echocardiogram complete w contrast; Future Chronic cough Immunoglobulin deficiency (HCC) Bronchiectasis is stable. She has had long standing chronic cough and MORAN. The symptoms are not acutely changed but she has noticed they have both been steadily worsening over time. Her January 2025 CXR did not show any acute changes other then some very, very mild pleural thickening. I did order an updated TTE. We discussed pulm rehab. She may want to try this again if the specific staff member is gone (she will call if she wants me to put a referral in). We discussed the oscillation vest for the cough. She wishes to hold off. Follow up in 6 months. HISTORY Jayashree Ferguson is a 85 y.o. 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 Dec 2021 labs revealed low IgG, IgM, and Ig A levels. I did refer her to Dr Langford. Labs for CTD (in 2020 and 2021) were negative. January 2022 PFT - mild restriction January 2022 methacholine - negative (FEV1 dropped 17%) January [address] - mild lower lobe bronchiectasis and some plugging. Exacerbations: October 2024 Treatment: Acapella 20 exhalations BID Symbicort 2 puffs BID . changing to Advair 115 HFA today 2 puffs BID Albuterol nebs every 4 hours prn (stopped BID dosing April 2024). She started immunoglobulin infusions in February 2022.. Previous treatments: Referral to pulm rehab to [facility] in 2022. She did not complete this due to issues with staff She does have a chronic cough. She does feel her cough and MORAN are slowly worsening over time. She can do her ADLs and sleep. She does not feel her cough is intrusive. SHe wishes she did not have to deal with it. The cough does seem to be a little productive now. She is on steroids now for her right shoulder. It did not help the cough or the SOB. She does try to stay active. No weight loss. No fever. No sore throat or thrush Current Outpatient Medications: albuterol (PROVENTIL) 2.5 mg /3 mL (0.083 %) nebulizer solution, USE 1 VIAL IN NEBULIZER AT LEAST TWICE DAILY, USE 1 TREATMENT EVERY 4 HOURS NEEDED FOR SHORTNESS OF BREATH/COUGH. ICD10 is J47.9. RUN THIS THROUGH MEDICARE PART B. ., Disp: 180 mL, Rfl: 12 atorvastatin (LIPITOR) 10 MG tablet, Take 1 (one) tablet (10 mg total) by mouth nightly ., Disp: , Rfl: cholecalciferol, vitamin D3, 2,000 unit cap, Take 1 (one) capsule by mouth every evening ., Disp: , Rfl: diltiazem (TIAZAC) 120 MG 24 hr capsule, Take 1 (one) capsule (120 mg total) by mouth 2 (two) times a day ., Disp: , Rfl: labetalol (NORMODYNE) 100 MG tablet, Take 1 (one) tablet (100 mg total) by mouth every morning ., Disp: , Rfl: levothyroxine (SYNTHROID, LEVOTHROID) 75 MCG tablet, Take 1 (one) tablet (75 mcg total) by mouth 5 (five) times a week Tuesday through Tuesday ., Disp: , Rfl: levothyroxine (SYNTHROID, LEVOTHROID) 75 MCG tablet, Take 0.5 (one-half) tablet (37.5 mcg total) by mouth twice weekly on Tuesday and Tuesday ., Disp: , Rfl: losartan (COZAAR) 100 MG tablet, Take 1 (one) tablet (100 mg total) by mouth every morning ., Disp: , Rfl: MUCUS CLEARING DEVICE MISC, by Miscellaneous route Order sent to [facility] 01/25/22 ., Disp: , Rfl: nebulizer accessories Kit, Use as directed ., Disp: 2 kit, Rfl: 0 sertraline (ZOLOFT) 25 MG tablet, Take 1 (one) tablet (25 mg total) by mouth daily ., Disp: , Rfl: therapeutic multivitamin (THERAGRAN) tablet, Take 1 (one) tablet by mouth every evening ., Disp: , Rfl: Advair HFA 115-21 mcg/actuation inhaler, Inhale 1 (one) puff 2 (two) times a day Rinse mouth after each use ., Disp: 36 g, Rfl: 4 fluticasone propionate (FLONASE) 50 mcg/actuation nasal spray, Instill 2 (two) sprays into each nostril daily . (Patient not taking: Reported on 09/03/2025 .), Disp: 16 g, Rfl: 11 Allergies as of 09/03/2025 - Reviewed 09/03/2025 Allergen Reaction Noted Sulfa (sulfonamide antibiotics) Anaphylaxis 11/25/2017 Penicillins Swelling and Rash 11/25/2017 Cipro [ciprofloxacin hcl] Other (See Comments) 01/25/2022 Opioids - morphine analogues GI Intolerance 11/25/2017 Immunization History Administered Date(s) Administered DT 11/28/2002 Influenza HD-IIV3 (FLUZONE HIGH DOSE) 65 years old or greater - syringe 08/26/2015, 09/21/2016, 09/07/2019, 08/23/2024, 08/26/2025 Influenza IIV3 high dose 65 and Older 09/04/2018 Influenza IIV4 high dose 65 and Older 08/26/2020, 08/21/2021, 08/23/2022, 10/10/2023 Influenza Split Preservative Free ID 08/28/2017 Influenza, Injectable, Quadrivalent 09/05/2017 Influenza, Unspecified 09/13/2013 Moderna Bivalent Booster:6-11 YRS 0.25mL; 12+YRS 0.5mL 11/08/2022 Moderna COVID-19 vaccine ( 12 years or older) (more content not included)... [facility] 08-26-2025 Note HNO ID: [id number] Author: JAYASHREE DAY LPN Service: ? Author Type: Licensed Nurse Type: Progress Notes Filed: 08/26/2025 11:24 Note Text: Pt received flu vaccine as ordered. Tolerated well [facility] 08-26-2025 Note HNO ID: [id number] Author: FRANKY REZA RT(R) Service: ? Author Type: Technologist Type: Progress Notes Filed: 08/26/2025 10:40 Note Text: Radiology Service Progress Note PATIENT NAME: Jayashree Ferguson DATE OF SERVICE: August 26, 2025 TIME: 10:26 AM PATIENT IDENTITY VERIFICATION COMPLETED USING TWO (2) IDENTIFIERS: Name and Date of confirmed by patient verbally. FALL SCREENING: Has the patient had 2 falls in the last year or 1 fall with injury or currently using an Ambulatory Assistive Device (Walker, Cane, Wheelchair, Crutches, etc.)? No PATIENT GENDER DATA: Assigned female at . status: : No status: NO. PATIENT RELEVANT IMPLANT DATA REVIEWED: Yes PATIENT PRESENTS WITH AN IMPLANTABLE OR ATTACHED OFFENDER EMPLOYMENT SPECIALIST: No RADIOLOGY DEPARTMENT: General X-ray: Exam(s) Completed: Upper Extremity X-Ray(s): Shoulder, AP / TRUE AP right and Humerus, right PERIPHERAL IV DATA: Not applicable SIGNED BY: RT Ann-Marie(R) August 26, 2025 10:26 AM [facility] 08-26-2025 Note HNO ID: [id number] Author: NATHALY JENKINS APRN.DATA ANALYSIS INTERN Service: ? Author Type: Nurse Practitioner Type: Progress Notes Filed: 08/26/2025 11:24 Note Text: This is a 85 year old female who presents today with: Right shoulder pain, post fall Nurse triage call today: Pt states she fell about 2 weeks ago and put her right hand down and fell on her right knee. States knee was black and blue but it is better now. Pt states her right shoulder was sore after she fell but the last 4-5 days has been much worse. ROM is diminished-reaching behind her back. Right shoulder cracks when she puts it above her head. Pt booked for an appt with Nathaly Jenkins at 940 am today. HISTORY OF PRESENT ILLNESS: Right Shoulder Pain: - Onset after a fall in the kitchen, during which Jayashree braced herself with her right hand. - Pain has worsened recently; initially managed with heat application. - Describes pain as a muscle hurt with occasional shooting pain down to the back of the hand. The muscle aches is in shoulder and down bicep/tricep. - Pain is exacerbated by certain movements, particularly reaching behind the back. - Denies previous shoulder issues or rotator cuff problems. - Has not been evaluated by a physician for this issue prior to today. - Denies diabetes; tolerates steroids well. - Taking Tylenol for pain management; avoids NSAIDs. - Has an appointment with Dr. Whitman next month. PAST MEDICAL HISTORY: PAST MEDICAL HISTORY Diagnosis Date BCC (basal cell carcinoma) 08/26/09 face Essential hypertension, benign Foraminal stenosis of lumbar region 1997 MRI History of lumbosacral spine surgery 12/07/2019 1. L5-S1 posterolateral arthrodesis. 2. L5-S1 laminectomy, medial facetectomy, bilateral foraminotomy. 3. 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 MRI 1997 Unspecified hypothyroidism Hypothyroidism PAST SURGICAL HISTORY Procedure Laterality Date ANESTHESIA EYELID RECONSTRUCTIVE PROCEDURE ARTHROSCOPY KNEE DIAGNOSTIC W/WO SYNOVIAL BX SPX Right Arthroscopy, knee LAMINECTOMY W/O FFD / VERT SEG LUMBAR 2000 Laminectomy, lumbar fusion x2 SKIN BX, 1 LESION Melanoma ressection TOTAL KNEE REPLACEMENT Right Orthopeadic One [place] ALLERGIES Erythromycin, Opioids - Morphine Analogues, Sulfa (Sulfonamide Antibiotics), Ciprofloxacin, Levaquin [Levofloxacin], Penicillin G, Tetracycline, and Tramadol MEDICATIONS Current Outpatient Medications Medication Sig losartan (COZAAR) 100 mg tablet Take 1 tablet by mouth once daily. labetalol (TRANDATE) 100 mg tablet Take 1 tablet by mouth once daily. levothyroxine (SYNTHROID) 75 mcg tablet Take 1 tablet by mouth once daily. Except 1 day a week take half a tablet. Take on empty stomach. For Thyroid sertraline (ZOLOFT) 50 mg tablet Take 1 tablet by mouth daily at bedtime. ADVAIR HFA 115-21 mcg/actuation inhaler Inhale 2 Puffs as instructed two times a day. atorvastatin (LIPITOR) 10 mg tablet Take 1 tablet by mouth once daily. dilTIAZem CD (CARDIZEM CD, CARTIA XT) 120 mg 24 hr capsule Take 1 capsule by mouth two times a day. Cholecalciferol, Vitamin D3, 50 mcg (2,000 unit) cap Take 1 capsule by mouth. albuterol (PROVENTIL) 2.5 mg /3 mL (0.083 %) nebulizer solution Use 3 mL via nebulizer as needed for wheezing/shortness of breath. immun glob G,IgG,/gly/IgA ov50 (GAMMAGARD LIQUID INJECTION) by INJECTION(UNSPECIFIED PARENTERAL ROUTES) route. Infusion every 4 wks acetaminophen (TYLENOL) 500 mg tablet Take 1,000 mg by mouth three times daily as needed. predniSONE (DELTASONE) 10 mg tablet Take 4 tablets by mouth once daily for 3 days, THEN 3 tablets once daily for 3 days, THEN 2 tablets once daily for 3 days, THEN 1 tablet once daily for 3 days. No current facility-administered medications for this visit. FAMILY HISTORY Problem Relation Age of Onset Hypertension Mother Heart Mother Stroke Mother Cancer Father brain No Known Problems Brother Rheumatologic disease Daughter Rh arthritis. SOCIAL HISTORY[1] REVIEW OF SYSTEMS Musculoskeletal: (+) right shoulder pain, (+) right shoulder heaviness, (+) decreased right shoulder range of motion, (+) shooting pain to back of right hand, (+) right upper arm muscle pain, (-) shoulder tenderness to palpation See HPI EXAM: BP 160/62 (BP Site: Left Arm, BP Position: Sitting, BP Cuff Size: Large Adult) Pulse 77 Wt 66.2 kg (146 lb) SpO2 93% BMI 28.51 kg/m? PHYSICAL EXAM: General Appearance: Well latricia (more content not included)... [facility] 07-16-2025 Telephone encounter Note Prescription Refill Information The patient has been identified by name and date of : Yes Caregiver verified no other encounters exist for this prescription request: Yes Caregiver confirmed with patient/requestor that no other refills are due, in the near future, with this provider at this time: Yes The last office visit in the department: 03/15/25 Does the patient have a future office visit with this provider/department: Yes, 09/17/25 Requested Prescriptions Pending Prescriptions Disp Refills levothyroxine (SYNTHROID) 75 mcg tablet 90 tablet 3 Sig: Take 1 tablet by mouth once daily. Except 1 day a week take half a tablet. Take on empty stomach. For Thyroid Vidal Larios LPN July 16, 2025 8:26 AM [facility] 07-16-2025 Miscellaneous Notes Prescription Refill Information The patient has been identified by name and date of : Yes Caregiver verified no other encounters exist for this prescription request: Yes Caregiver confirmed with patient/requestor that no other refills are due, in the near future, with this provider at this time: Yes The last office visit in the department: 03/15/25 Does the patient have a future office visit with this provider/department: Yes, 09/17/25 Requested Prescriptions Pending Prescriptions Disp Refills levothyroxine (SYNTHROID) 75 mcg tablet 90 tablet 3 Sig: Take 1 tablet by mouth once daily. Except 1 day a week take half a tablet. Take on empty stomach. For Thyroid Vidal Larios LPN July 16, 2025 8:26 AM documented in this encounter [facility] 06-20-2025 Telephone encounter Note Prescription Refill Information This was just filled in February many refills left at pharmacy. Pt notified of such. [facility] 06-20-2025 Miscellaneous Notes Prescription Refill Information This was just filled in February many refills left at pharmacy. Pt notified of such. documented in this encounter [facility] 03-21-2025 Note HNO ID: [id number] Author: ESPERANZA PERRIN APRN.DATA ANALYSIS INTERN Service: ? Author Type: Nurse Practitioner Type: Progress Notes Filed: 03/21/2025 16:10 Note Text: NEW PATIENT Chief Complaint: LESION, SKIN History of Present Ilness: Jayashree Ferguson is a 84 year old female who presents today for a focused skin examination. Accompanied by spouse. 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 Medication List is reviewed. ROS: Skin as above. Physical Exam: Lo skin type: II The patient is a pleasant female in no apparent distress. Alert and oriented x 3. A skin exam performed of the face is significant for: Left Buccal Cheek Erythematous papule with gritty adherent scale Assessment and Plan: ACTINIC KERATOSIS Left Buccal Cheek Discussed etiology and possibility of transformation to SCC. Discussed treatment options including liquid nitrogen treatment along with the risks and benefits; patient elects to proceed. CRYOTHERAPY SKIN LESION - Left Buccal Cheek Complexity: simple Destruction method: cryotherapy Informed consent: discussed and consent obtained Informed consent comment: Verbal Lesion destroyed using liquid nitrogen: Yes Region frozen until ice ball extended beyond lesion: Yes Cryotherapy cycles: 2 Outcome: patient tolerated procedure well with no complications Post-procedure details: wound care instructions given Additional details: Patient elects for treatment with Cryotherapy: Risks, benefits, alternatives, complications, and personnel required for cryosurgery were reviewed with the patient. Specifically, the risks of permanent scarring, loss or darkening of skin color, blister, incomplete treatment, and recurrence of the lesion were discussed. The patient verbalizes understanding and wishes to proceed. Patient tolerated well and wound care was discussed. Return if lesions fail to fully resolve. Sunscreen and sun protection reviewed. Should any areas change in size, shape or color, bleed or become tender, the patient will contact the office for evaluation sooner than their interval appointment. Follow up: FBSE The documentation for this note was completed by Leonila Hernandez MA acting as scribe for Esperanza Perrin APRN.CNP. I agree with the Chief Complaint, ROS, and Past Histories independently gathered by the clinical senior technical support analyst and the remaining scribed note accurately describes my personal service to the patient. Esperanza Perrin APRN.CNP [facility] 03-19-2025 Progress note Formatting of t his note might be different from the original. Kidney function has improved a little. Good job. Calcium level once again slightly elevated. That occurred 2 years ago. Inflammatory marker is normal for age. Thyroid level is therapeutic at current dose. [facility] 03-19-2025 Miscellaneous Notes Kidney function has improved a little. Good job. Calcium level once again slightly elevated. That occurred 2 years ago. Inflammatory marker is normal for age. Thyroid level is therapeutic at current dose. documented in this encounter [facility] 03-15-2025 History of Present illness Narrative Radiology Service Progress Note PATIENT NAME: Jayashree Ferguson DATE OF SERVICE: March 15, 2025 TIME: 11:03 AM PATIENT IDENTITY VERIFICATION COMPLETED USING TWO (2) IDENTIFIERS: Name and Date of confirmed by patient verbally. FALL SCREENING: Has the patient had 2 falls in the last year or 1 fall with injury or currently using an Ambulatory Assistive Device (Walker, Cane, Wheelchair, Crutches, etc.)? No PATIENT GENDER DATA: Assigned female at . status: : No status: NO. PATIENT RELEVANT IMPLANT DATA REVIEWED: Not Applicable PATIENT PRESENTS WITH AN IMPLANTABLE OR ATTACHED OFFENDER EMPLOYMENT SPECIALIST: No RADIOLOGY DEPARTMENT: General X-ray: Exam(s) Completed: Spine X-Ray(s): Cervical AP / LAT / OBL PERIPHERAL IV DATA: Not applicable SIGNED BY: RT Carina(Autumn) March 15, 2025 11:03 AM documented in this encounter [facility] 03-15-2025 Note HNO ID: [id number] Author: DECLAN CALHOUN RT(R) Service: Radiology Author Type: Technologist Type: Progress Notes Filed: 03/15/2025 11:22 Note Text: Radiology Service Progress Note PATIENT NAME: Jayashree Ferguson DATE OF SERVICE: March 15, 2025 TIME: 11:03 AM PATIENT IDENTITY VERIFICATION COMPLETED USING TWO (2) IDENTIFIERS: Name and Date of confirmed by patient verbally. FALL SCREENING: Has the patient had 2 falls in the last year or 1 fall with injury or currently using an Ambulatory Assistive Device (Walker, Cane, Wheelchair, Crutches, etc.)? No PATIENT GENDER DATA: Assigned female at . status: : No status: NO. PATIENT RELEVANT IMPLANT DATA REVIEWED: Not Applicable PATIENT PRESENTS WITH AN IMPLANTABLE OR ATTACHED OFFENDER EMPLOYMENT SPECIALIST: No RADIOLOGY DEPARTMENT: General X-ray: Exam(s) Completed: Spine X-Ray(s): Cervical AP / LAT / OBL PERIPHERAL IV DATA: Not applicable SIGNED BY: RT Carina(Autumn) March 15, 2025 11:03 AM [facility] 03-15-2025 Note HNO ID: [id number] Author: HERMINIO WHITMAN MD Service: ? Author Type: Physician Type: Progress Notes Filed: 03/15/2025 10:41 Note Text: Patient presents with: 6 Month Exam HPI: Patient presents today for office visit for follow up. HTN: Monitors BP occ. Denies chest pain. Worsening shortness of breath. Uses inhaler. Coughs frequently. Denies dizziness. No palpitations or syncope. No edema. Having frequent headaches. Wakes up with them. Ongoing X 6+ weeks. Thinks it is related to her neck. 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 Not the worst headache she has had. No new focal neuro issues. Usually when up and moving it gets better. Has a large amount of crepitus in her neck. She does not think its anything THYROID: Having some energy, hair and skin changes. Feeling fatigued. Hair is thinning Refers to thinking this is all related to her Gammagard infusions. Feels weak at times. HLD: No myalgias. PSYCH: Continues on Sertraline 25 mg daily. She did double it recently and only took for about two weeks. Unsure if helped but not sure is long enough. Moods have been terrible. Refers to her moods being circumstantial. Has a lot of family/personal things going on. States nothing is going right Sleeping well. mentions a rash on her left cheek. Red bump. Used hydrocortisone and neosporin with no improvement. Been there a few months. Some itching. Seeing [facility] still. Follows for pulmonary/immunology. MEDICATIONS: Current Outpatient Medications Medication Sig ADVAIR HFA 115-21 mcg/actuation inhaler Inhale 2 Puffs as instructed two times a day. levothyroxine (SYNTHROID) 75 mcg tablet Take 1 tablet by mouth once daily. Except 1 day a week take half a tablet. Take on empty stomach. For Thyroid atorvastatin (LIPITOR) 10 mg tablet Take 1 tablet by mouth once daily. dilTIAZem CD (CARDIZEM CD, CARTIA XT) 120 mg 24 hr capsule Take 1 capsule by mouth two times a day. losartan (COZAAR) 100 mg tablet Take 1 tablet by mouth once daily. labetalol (TRANDATE) 100 mg tablet Take 1 tablet by mouth once daily. sertraline (ZOLOFT) 25 mg tablet Take 1 tablet by mouth daily at bedtime. Cholecalciferol, Vitamin D3, 50 mcg (2,000 unit) cap Take 1 capsule by mouth. albuterol (PROVENTIL) 2.5 mg /3 mL (0.083 %) nebulizer solution Use 3 mL via nebulizer as needed for wheezing/shortness of breath. immun glob G,IgG,/gly/IgA ov50 (GAMMAGARD LIQUID INJECTION) by INJECTION(UNSPECIFIED PARENTERAL ROUTES) route. Infusion every 4 wks acetaminophen (TYLENOL) 500 mg tablet Take 1,000 mg by mouth three times daily as needed. No current facility-administered medications for this visit. ALLERGIES: ALLERGIES Allergen Reactions Erythromycin Vomiting Opioids - Morphine * GI Upset Vomiting. Stomach spasms. Sulfa (Sulfonamide * Anaphylaxis Ciprofloxacin Contraindication-Medical Surgical Tendon rupture with Cipro Levaquin [Levofloxa* Contraindication-Medical Surgical Tendon rupture Penicillin G Rash Childhood dose. Rash elbows and knees, swelling Tetracycline Vomiting Tramadol Vomiting PAST MEDICAL HISTORY Diagnosis Date BCC (basal cell carcinoma) 08/26/09 face Essential hypertension, benign Foraminal stenosis of lumbar region 1997 MRI History of lumbosacral spine surgery 12/07/2019 1. L5-S1 posterolateral arthrodesis. 2. L5-S1 laminectomy, medial facetectomy, bilateral foraminotomy. 3. 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 Social History Tobacco Use Smoking status: Former Current packs/day: 0.00 Average packs/day: 1 pack/day for 10.0 years (10.0 ttl pk-yrs) Types: Cigarettes Start date: 10/27/1983 Quit date: 10/27/1993 Years since quittin.4 Smokeless tobacco: Never Tobacco comments: ETS: Father in childhood home, at patient age 5. No ETS in adult homes. Vaping Use [facility] (more content not included)... [facility] 03-15-2025 History of Present illness Narrative Patient presents with: 6 Month Exam HPI: Patient presents today for office visit for follow up. HTN: Monitors BP occ. Denies chest pain. Worsening shortness of breath. Uses inhaler. Coughs frequently. Denies dizziness. No palpitations or syncope. No edema. Having frequent headaches. Wakes up with them. Ongoing X 6+ weeks. Thinks it is related to her neck. 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 Not the worst headache she has had. No new focal neuro issues. Usually when up and moving it gets better. Has a large amount of crepitus in her neck. She does not think its anything THYROID: Having some energy, hair and skin changes. Feeling fatigued. Hair is thinning Refers to thinking this is all related to her Gammagard infusions. Feels weak at times. HLD: No myalgias. PSYCH: Continues on Sertraline 25 mg daily. She did double it recently and only took for about two weeks. Unsure if helped but not sure is long enough. Moods have been terrible. Refers to her moods being circumstantial. Has a lot of family/personal things going on. States nothing is going right Sleeping well. mentions a rash on her left cheek. Red bump. Used hydrocortisone and neosporin with no improvement. Been there a few months. Some itching. Seeing [facility] still. Follows for pulmonary/immunology. MEDICATIONS: Current Outpatient Medications Medication Sig ADVAIR HFA 115-21 mcg/actuation inhaler Inhale 2 Puffs as instructed two times a day. levothyroxine (SYNTHROID) 75 mcg tablet Take 1 tablet by mouth once daily. Except 1 day a week take half a tablet. Take on empty stomach. For Thyroid atorvastatin (LIPITOR) 10 mg tablet Take 1 tablet by mouth once daily. dilTIAZem CD (CARDIZEM CD, CARTIA XT) 120 mg 24 hr capsule Take 1 capsule by mouth two times a day. losartan (COZAAR) 100 mg tablet Take 1 tablet by mouth once daily. labetalol (TRANDATE) 100 mg tablet Take 1 tablet by mouth once daily. sertraline (ZOLOFT) 25 mg tablet Take 1 tablet by mouth daily at bedtime. Cholecalciferol, Vitamin D3, 50 mcg (2,000 unit) cap Take 1 capsule by mouth. albuterol (PROVENTIL) 2.5 mg /3 mL (0.083 %) nebulizer solution Use 3 mL via nebulizer as needed for wheezing/shortness of breath. immun glob G,IgG,/gly/IgA ov50 (GAMMAGARD LIQUID INJECTION) by INJECTION(UNSPECIFIED PARENTERAL ROUTES) route. Infusion every 4 wks acetaminophen (TYLENOL) 500 mg tablet Take 1,000 mg by mouth three times daily as needed. No current facility-administered medications for this visit. ALLERGIES: ALLERGIES Allergen Reactions Erythromycin Vomiting Opioids - Morphine * GI Upset Vomiting. Stomach spasms. Sulfa (Sulfonamide * Anaphylaxis Ciprofloxacin Contraindication-Medical Surgical Tendon rupture with Cipro Levaquin [Levofloxa* Contraindication-Medical Surgical Tendon rupture Penicillin G Rash Childhood dose. Rash elbows and knees, swelling Tetracycline Vomiting Tramadol Vomiting PAST MEDICAL HISTORY Diagnosis Date BCC (basal cell carcinoma) 08/26/09 face Essential hypertension, benign Foraminal stenosis of lumbar region 1997 MRI History of lumbosacral spine surgery 12/07/2019 1. L5-S1 posterolateral arthrodesis. 2. L5-S1 laminectomy, medial facetectomy, bilateral foraminotomy. 3. 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 Social History Tobacco Use Smoking status: Former Current packs/day: 0.00 Average packs/day: 1 pack/day for 10.0 years (10.0 ttl pk-yrs) Types: Cigarettes Start date: 10/27/1983 Quit date: 10/27/1993 Years since quittin.4 Smokeless tobacco: Never Tobacco comments: ETS: Father in childhood home, at patient age 5. No ETS in adult homes. Vaping Use Vaping status: Never Used Substance Use Topics Alcohol use: Yes Comment: 3-4 times a week (a glass of wine with dinner) Drug use: No Reviewed current medications, allergies, past medical history, surgical history, family history and social history today. REVIEW OF SYSTEMS All other reviewed and negative other than HPI. VITALS: BP 132/73 Pulse 71 Ht 152.4 cm (5') Wt 66.7 kg (147 lb) SpO2 96% BMI 28.71 kg/m Last 4 Encounter Wt Readings: Date: Wt: 11/27/2024 67.6 kg (149 lb) 09/12/2024 67.7 kg (149 lb 4 oz) 05/21/2024 65.8 kg (145 lb) 05/14/2024 66.3 kg (146 lb 3.2 oz) PHYSICAL EXAMINATION: General appearance: Well appearing, alert, in no acute distress, well-hydrated, well nourished. Skin: rosacea on face but has a pink raised area with pearly borders on left cheek. See derm Head: Normocephalic, no masses, lesions, tenderness or abnormalities Neck: Supple, no adenopathy; thyroid symmetric, normal size, no bruits Back: Normal exam Lungs: Lungs clear to auscultation. No wheezing, rhonchi, rales Heart: RRR without murmur, gallop, or rubs. No ectopy Abdomen: Normal abdominal exam, Abdomen soft, non-tender. Bowel sounds normal. No masses, organomegaly Extremities: No deformities, edema, skin discoloration, clubbing or cyanosis. Good capillary refill. Musculoskeletal: No joint swelling, deformity, or tenderness Peripheral pulses: Normal Neuro: Gait normal. Reflexes normal and symmetric. Sensation grossly intact., Negative findings: speech normal, muscle tone normal, muscle strength normal ASSESSMENT/PLAN: 1. Essential hypertension, benign - ICD9: 401.1, ICD10: I10 (primary diagnosis) - Controlled - Continue current medications 2. Bronchiectasis without complication (HCC) - ICD9: 494.0, ICD10: J47.9 - stable. 3. Irritable bowel syndrome with both constipation and diarrhea - ICD9: 564.1, ICD10: K58.2 - stable. 4. Acquired hypothyroidism - ICD9: 244.9, ICD10: E03.9 - Instructed patient on importance of taking on an empty stomach either first thing in the morning or at bedtime. - THYROID STIMULATING HORMONE - T4/FTI/T4U 5. H/O NOSE//PERS HX MALIG SKIN MELANOMA - ICD9: V10.82, ICD10: Z85.820 - continue to follow with derm. 6. Immunodeficiency (HCC) - ICD9: 279.3, ICD10: D84.9 - see pulmonary. 7. Depression - ICD9: 311, ICD10: F32.A - increase dose. Call if symptoms worsen at all or if not better in one months. - SERTRALINE 50 MG TABLET 8. Headache, unspecified headache type - ICD9: 784.0, ICD10: R51.9 - declines therapy. Doubt things like temporal arteritis. - SEDIMENTATION RATE, WESTERGREN - XR CERV OTHER 4V AP/LAT/OBL 9. Neck pain - ICD9: 723.1, ICD10: M54.2 -as above. She would like an xray. - SEDIMENTATION RATE, WESTERGREN - XR CERV OTHER 4V AP/LAT/OBL 10. Stage 3 chronic kidney disease, unspecified whether stage 3a or 3b CKD (HCC) - ICD9: 585.3, ICD10: N18.30 - BASIC METABOLIC PANEL 11. Skin lesion - ICD9: 709.9, ICD10: L98.9 See derm - CONSULT TO DERMATOLOGY Herminio Whitman MD documented in this encounter [facility] 02-19-2025 Note Result released to p t through [employer] account with comment AUTHENTICATED BY KAREN GONCALVES, ON 02/19/2025 09:10:55 [facility] 02-19-2025 History of Present illness Narrative Result released to pt through [employer] account with comment documented in this encounter [facility] 02-13-2025 Note Assessment/Plan: Diagnoses and all orders for this visit: Bronchiectasis without complication (HCC) - XR Chest AP/PA and LAT; Future - albuterol (PROVENTIL) 2.5 mg /3 mL (0.083 %) nebulizer solution; USE 1 VIAL IN NEBULIZER AT LEAST TWICE DAILY, USE 1 TREATMENT EVERY 4 HOURS NEEDED FOR SHORTNESS OF BREATH/COUGH. ICD10 is J47.9. RUN THIS THROUGH MEDICARE PART B. . MORAN (dyspnea on exertion) - XR Chest AP/PA and LAT; Future Bronchiectasis is stable. Chronic cough are stable. MORAN is chronic. Exercise encouraged. I did order a repeat CXR. She will be messaged with results. In the future, I may also recheck and echo as the MORAN seems to be chronic and her work up over the years has not shown an obvious cause for this. She is a little deconditioned so I hope she notices some improvement with time as she continues to exercise HISTORY Jayashree Ferguson is a 84 y.o. 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 Dec 2021 labs revealed low IgG, IgM, and Ig A levels. I did refer her to Dr Langford. Labs for CTD (in 2020 and 2021) were negative. January 2022 PFT - mild restriction January 2022 methacholine - negative (FEV1 dropped 17%) January [address] - mild lower lobe bronchiectasis and some plugging. Exacerbations: October 2024 Treatment: Acapella 20 exhalations BID Symbicort 2 puffs BID . changing to Advair 115 HFA today 2 puffs BID Albuterol nebs every 4 hours prn (stopped BID dosing April 2024). She started immunoglobulin infusions in February 2022.. Previous treatments: Referral to pulm rehab to [facility] in 2022. She did not complete this due to issues with staff She is here today with her daughter (who is to undergo an amputation of her right foot in the near future) She did have a flare up in October 2024. She reports she recovered well from this. Cough is controlled MORAN is present and she feels it is worsening. She is trying to exercise and keep moving. 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 No fever or chills. No chest pain. No hemoptysis. No sore throat/ thrush. . Current Outpatient Medications: atorvastatin (LIPITOR) 10 MG tablet, Take 1 (one) tablet (10 mg total) by mouth nightly ., Disp: , Rfl: cholecalciferol, vitamin D3, 2,000 unit cap, Take 1 (one) capsule by mouth every evening ., Disp: , Rfl: diltiazem (TIAZAC) 120 MG 24 hr capsule, Take 1 (one) capsule (120 mg total) by mouth 2 (two) times a day ., Disp: , Rfl: fluticasone propion-salmeteroL (Advair HFA) 115-21 mcg/actuation inhaler, Inhale 2 (two) puffs 2 (two) times a day Rinse mouth after each use ., Disp: 36 g, Rfl: 3 labetalol (NORMODYNE) 100 MG tablet, Take 1 (one) tablet (100 mg total) by mouth every morning ., Disp: , Rfl: levothyroxine (SYNTHROID, LEVOTHROID) 75 MCG tablet, Take 1 (one) tablet (75 mcg total) by mouth 5 (five) times a week Tuesday through Tuesday ., Disp: , Rfl: levothyroxine (SYNTHROID, LEVOTHROID) 75 MCG tablet, Take 0.5 (one-half) tablet (37.5 mcg total) by mouth twice weekly on Tuesday and Tuesday ., Disp: , Rfl: losartan (COZAAR) 100 MG tablet, Take 1 (one) tablet (100 mg total) by mouth every morning ., Disp: , Rfl: MUCUS CLEARING DEVICE [place], by Miscellaneous route Order sent to [facility] 01/25/22 ., Disp: , Rfl: nebulizer accessories Kit, Use as directed ., Disp: 2 kit, Rfl: 0 sertraline (ZOLOFT) 25 MG tablet, Take 1 (one) tablet (25 mg total) by mouth daily ., Disp: , Rfl: therapeutic multivitamin (THERAGRAN) tablet, Take 1 (one) tablet by mouth every evening ., Disp: , Rfl: albuterol (PROVENTIL) 2.5 mg /3 mL (0.083 %) nebulizer solution, USE 1 VIAL IN NEBULIZER AT LEAST TWICE DAILY, USE 1 TREATMENT EVERY 4 HOURS NEEDED FOR SHORTNESS OF BREATH/COUGH. ICD10 is J47.9. RUN THIS THROUGH MEDICARE PART B. ., Disp: 180 mL, Rfl: 12 fluticasone propionate (FLONASE) 50 mcg/actuation nasal spray, Instill 2 (two) sprays into each nostril daily . (Patient not taking: Reported on 02/13/2025 .), Disp: 16 g, Rfl: 11 Allergies as of 02/13/2025 - Reviewed 02/13/2025 Allergen Reaction Noted Sulfa (sulfonamide antibiotics) Anaphylaxis 11/25/2017 Penicillins Swelling and Rash 11/25/2017 Cipro [ciprofloxacin hcl] Other (See Comments) 01/25/2022 Opioids - morphine analogues GI Intolerance 11/25/2017 Immunization History Administered Date(s) Administered Moderna Bivalent Booster:6-11 YRS 0.25mL; 12+YRS 0.5mL 11/08/2022 Moderna SARS-CoV-2 Vaccination 12/26/2020, 01/23/2021, 10/29/2021 Past Medical History: Diagnosis Date Anxiety Arthritis Back pain Bladder problem freq / leakage Breast cyst Breast mass Bronchitis Cancer (HCC) melanoma Cataract removed Complication of anesthesia Depression Disease of thyroid gland History of echocardiogram History of stress test Hyperlipidemia Hypertension Hypothyroidism Irritable bowel syndrome Lumbar foraminal stenosis Measles Ost (more content not included)... [facility] 02-13-2025 History of Present illness Narrative Assessment/Plan: Diagnoses and all orders for this visit: Bronchiectasis without complication (HCC) - XR Chest AP/PA and LAT; Future - albuterol (PROVENTIL) 2.5 mg /3 mL (0.083 %) nebulizer solution; USE 1 VIAL IN NEBULIZER AT LEAST TWICE DAILY, USE 1 TREATMENT EVERY 4 HOURS NEEDED FOR SHORTNESS OF BREATH/COUGH. ICD10 is J47.9. RUN THIS THROUGH MEDICARE PART B. . MORAN (dyspnea on exertion) - XR Chest AP/PA and LAT; Future Bronchiectasis is stable. Chronic cough are stable. MORAN is chronic. Exercise encouraged. I did order a repeat CXR. She will be messaged with results. In the future, I may also recheck and echo as the MORAN seems to be chronic and her work up over the years has not shown an obvious cause for this. She is a little deconditioned so I hope she notices some improvement with time as she continues to exercise HISTORY Jayashree Ferguson is a 84 y.o. 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 Dec 2021 labs revealed low IgG, IgM, and Ig A levels. I did refer her to Dr Langford. Labs for CTD (in 2020 and 2021) were negative. January 2022 PFT - mild restriction January 2022 methacholine - negative (FEV1 dropped 17%) January [address] - mild lower lobe bronchiectasis and some plugging. Exacerbations: October 2024 Treatment: Acapella 20 exhalations BID Symbicort 2 puffs BID . changing to Advair 115 HFA today 2 puffs BID Albuterol nebs every 4 hours prn (stopped BID dosing April 2024). She started immunoglobulin infusions in February 2022.. Previous treatments: Referral to pulm rehab to [facility] in 2022. She did not complete this due to issues with staff She is here today with her daughter (who is to undergo an amputation of her right foot in the near future) She did have a flare up in October 2024. She reports she recovered well from this. Cough is controlled MORAN is present and she feels it is worsening. She is trying to exercise and keep moving. 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 No fever or chills. No chest pain. No hemoptysis. No sore throat/ thrush. . Current Outpatient Medications: atorvastatin (LIPITOR) 10 MG tablet, Take 1 (one) tablet (10 mg total) by mouth nightly ., Disp: , Rfl: cholecalciferol, vitamin D3, 2,000 unit cap, Take 1 (one) capsule by mouth every evening ., Disp: , Rfl: diltiazem (TIAZAC) 120 MG 24 hr capsule, Take 1 (one) capsule (120 mg total) by mouth 2 (two) times a day ., Disp: , Rfl: fluticasone propion-salmeteroL (Advair HFA) 115-21 mcg/actuation inhaler, Inhale 2 (two) puffs 2 (two) times a day Rinse mouth after each use ., Disp: 36 g, Rfl: 3 labetalol (NORMODYNE) 100 MG tablet, Take 1 (one) tablet (100 mg total) by mouth every morning ., Disp: , Rfl: levothyroxine (SYNTHROID, LEVOTHROID) 75 MCG tablet, Take 1 (one) tablet (75 mcg total) by mouth 5 (five) times a week Tuesday through Tuesday ., Disp: , Rfl: levothyroxine (SYNTHROID, LEVOTHROID) 75 MCG tablet, Take 0.5 (one-half) tablet (37.5 mcg total) by mouth twice weekly on Tuesday and Tuesday ., Disp: , Rfl: losartan (COZAAR) 100 MG tablet, Take 1 (one) tablet (100 mg total) by mouth every morning ., Disp: , Rfl: MUCUS CLEARING DEVICE [place]IS, by Miscellaneous route Order sent to [facility] 01/25/22 ., Disp: , Rfl: nebulizer accessories Kit, Use as directed ., Disp: 2 kit, Rfl: 0 sertraline (ZOLOFT) 25 MG tablet, Take 1 (one) tablet (25 mg total) by mouth daily ., Disp: , Rfl: therapeutic multivitamin (THERAGRAN) tablet, Take 1 (one) tablet by mouth every evening ., Disp: , Rfl: albuterol (PROVENTIL) 2.5 mg /3 mL (0.083 %) nebulizer solution, USE 1 VIAL IN NEBULIZER AT LEAST TWICE DAILY, USE 1 TREATMENT EVERY 4 HOURS NEEDED FOR SHORTNESS OF BREATH/COUGH. ICD10 is J47.9. RUN THIS THROUGH MEDICARE PART B. ., Disp: 180 mL, Rfl: 12 fluticasone propionate (FLONASE) 50 mcg/actuation nasal spray, Instill 2 (two) sprays into each nostril daily . (Patient not taking: Reported on 02/13/2025 .), Disp: 16 g, Rfl: 11 Allergies as of 02/13/2025 - Reviewed 02/13/2025 Allergen Reaction Noted Sulfa (sulfonamide antibiotics) Anaphylaxis 11/25/2017 Penicillins Swelling and Rash 11/25/2017 Cipro [ciprofloxacin hcl] Other (See Comments) 01/25/2022 Opioids - morphine analogues GI Intolerance 11/25/2017 Immunization History Administered Date(s) Administered Moderna Bivalent Booster:6-11 YRS 0.25mL; 12+YRS 0.5mL 11/08/2022 Moderna SARS-CoV-2 Vaccination 12/26/2020, 01/23/2021, 10/29/2021 Past Medical History: Diagnosis Date Anxiety Arthritis Back pain Bladder problem freq / leakage Breast cyst Breast mass Bronchitis Cancer (HCC) melanoma Cataract removed Complication of anesthesia Depression Disease of thyroid gland History of echocardiogram History of stress test Hyperlipidemia Hypertension Hypothyroidism Irritable bowel syndrome Lumbar foraminal stenosis Measles Osteoporosis Pneumonia PONV (postoperative nausea and vomiting) Pulmonary nodule SOB (shortness of breath) Thyroid dysfunction Past Surgical History: Procedure Laterality Date ARTHROPLASTY KNEE TOTAL Right 11/30/2017 Procedure: RIGHT TOTAL KNEE ARTHROPLASTY ; Surgeon: Rony Guerrero MD; Location: [facility] Main OR; Service: Orthopedic BACK SURGERY COLONOSCOPY JOINT REPLACEMENT lymphectomy POSTERIOR LUMBAR INTERBODY FUSION SINGLE LEVEL N/A 12/07/2019 Procedure: LUMBAR FIVE-SACRAL ONE FACETECTOMY AND FUSION, REPLACE HARDWARE; Surgeon: Mariana Murillo MD; Location: [facility] NEURO OR; Service: Neurological SKIN GRAFT SPINAL FUSION TONSILLECTOMY Family History Problem Relation Age of Onset Heart disease Mother Stroke Mother Brain cancer Father Social History Socioeconomic History Marital status: Tobacco Use Smoking status: Former Current packs/day: 1.00 Average packs/day: 1 pack/day for 4.0 years (4.0 ttl pk-yrs) Types: Cigarettes Passive exposure: Past Smokeless tobacco: Never Tobacco comments: in college Vaping Use Vaping status: Never Used Substance and Sexual Activity Alcohol use: Yes Alcohol/week: 3.0 standard drinks of alcohol Types: 3 Glasses of wine per week Comment: one or more times a week Drug use: Never Sexual activity: Not Currently Social Drivers of Health Food Insecurity: No Food Insecurity (10/09/2023) Received from [facility] Hunger Vital Sign Worried About Running Out of Food in the Last Year: Never true Ran Out of Food in the Last Year: Never true Transportation Needs: No Transportation Needs (10/09/2023) Received from [facility] PRAPARE - Transportation Lack of Transportation (Medical): No Lack of Transportation (Non-Medical): No Physical Activity: Patient Declined (10/09/2023) Received from [facility] Exercise Vital Sign Days of Exercise per Week: Patient declined Minutes of Exercise per Session: Patient declined Stress: Patient Declined (10/09/2023) Received from [facility] [place] [employer] - Occupational Stress Questionnaire Feeling of Stress : Patient declined Social Connections: Unknown (10/09/2023) Received from [facility] Social Connection and Isolation Panel [NHANES] Frequency of Communication with Friends and Family: More than three times a week Frequency of Social Gatherings with Friends and Family: More than three times a week Attends Voodoo Services: Patient declined Active Member of Clubs or Organizations: Patient declined Attends Club or Organization Meetings: Patient declined Marital Status: Patient declined Housing Stability: Low Risk (10/09/2023) Received from [facility] Housing Stability Vital Sign Unable to Pay for Housing in the Last Year: No Number of Places Lived in the Last Year: 1 Unstable Housing in the Last Year: No Vitals: 02/13/25 1500 BP: (!) 141/75 BP Location: Right arm Patient Position: Sitting BP Cuff Size: Adult Pulse: 67 Resp: 16 SpO2: 94% Weight: 64.9 kg (143 lb) Height: 5' EXAM: Gerneral: alert, oriented x 3, NAD. 143 lbs. Weight is stable from 2023 appointments. Eyes: clear conjunctiva ENT: Not hoarse. CVS: RRR, no MGR, no JVD or edema Pulm: Clear. No wheezing, crackles, no dullness. Not labored. No cyanosis or clubbing. Breath sounds and chest wall movement are normal. Psych: alert, appropriate. Pleasant documented in this encounter [facility] 01-10-2025 Telephone encounter Note Patient called for refill of her nebulizer solution. She just came from the pharmacy and they stated the prescription on file is . Patient last seen 10/31/24 and next appt is 02/13/25. [facility] 01-10-2025 Miscellaneous Notes Patient called for refill of her nebulizer solution. She just came from the pharmacy and they stated the prescription on file is . Patient last seen 10/31/24 and next appt is 02/13/25. documented in this encounter [facility] 11-27-2024 Instructions Maricel Kennedy APRN.CNP - 11/27/2024 1:49 PM EST - DOXYCYCLINE HYCLATE 100 MG CAPSULE daily for 14 days (daily dose only d/units renal Fx) - METHYLPREDNISOLONE 4 MG TABLETS IN A DOSE PACK - Follow up with Dr. Whitman in February - labs today documented in this encounter [facility] 11-27-2024 Note HNO ID: [id number] Author: MARICEL KENNEDY APRN.CNP Service: ? Author Type: Clinical Nurse Specialist Type: Progress Notes Filed: 11/27/2024 13:52 Note Text: This is a 84 year old female who presents today with: Patient presents with: Cough: 4 days HISTORY OF PRESENT ILLNESS: Jayashree Ferguson is a 84 year old female. Patient presents with: Cough: 4 days Runny nose and cough. Hx of bronchiectasis. Severe cough for 4 days so severe that her head is hurting. Having to take Tylenol for the headache. Fever. Uncertain about chills. Feeling very tired. Did have a sore throat for 2 days initially PAST MEDICAL HISTORY: PAST MEDICAL HISTORY Diagnosis Date BCC (basal cell carcinoma) 08/26/09 face Essential hypertension, benign Foraminal stenosis of lumbar region 1997 MRI History of lumbosacral spine surgery 12/07/2019 1. L5-S1 posterolateral arthrodesis. 2. L5-S1 laminectomy, medial facetectomy, bilateral foraminotomy. 3. 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 1997 Unspecified hypothyroidism Hypothyroidism PAST SURGICAL HISTORY Procedure Laterality Date ANESTHESIA EYELID RECONSTRUCTIVE PROCEDURE ARTHROSCOPY KNEE DIAGNOSTIC W/WO SYNOVIAL BX SPX Right Arthroscopy, knee LAMINECTOMY W/O FFD 1/2 VERT SEG LUMBAR 2000 Laminectomy, lumbar fusion x2 SKIN BX, 1 LESION Melanoma ressection TOTAL KNEE REPLACEMENT Right Orthopeadic [place] ALLERGIES Erythromycin, Opioids - Morphine Analogues, Sulfa (Sulfonamide Antibiotics), Ciprofloxacin, Levaquin [Levofloxacin], Penicillin G, Tetracycline, and Tramadol MEDICATIONS Current Outpatient Medications Medication Sig levothyroxine (SYNTHROID) 75 mcg tablet Take 1 tablet by mouth once daily. Except 1 day a week take half a tablet. Take on empty stomach. For Thyroid atorvastatin (LIPITOR) 10 mg tablet Take 1 tablet by mouth once daily. dilTIAZem CD (CARDIZEM CD, CARTIA XT) 120 mg 24 hr capsule Take 1 capsule by mouth two times a day. losartan (COZAAR) 100 mg tablet Take 1 tablet by mouth once daily. labetalol (TRANDATE) 100 mg tablet Take 1 tablet by mouth once daily. sertraline (ZOLOFT) 25 mg tablet Take 1 tablet by mouth daily at bedtime. Cholecalciferol, Vitamin D3, 50 mcg (2,000 unit) cap Take 1 capsule by mouth. albuterol (PROVENTIL) 2.5 mg /3 mL (0.083 %) nebulizer solution Use 3 mL via nebulizer as needed for wheezing/shortness of breath. immun glob G,IgG,/gly/IgA ov50 (GAMMAGARD LIQUID INJECTION) by INJECTION(UNSPECIFIED PARENTERAL ROUTES) route. Infusion every 4 wks acetaminophen (TYLENOL) 500 mg tablet Take 1,000 mg by mouth three times daily as needed. ADVAIR HFA 115-21 mcg/actuation inhaler Inhale 2 Puffs as instructed two times a day. SYMBICORT 80-4.5 mcg/actuation inhaler No current facility-administered medications for this visit. FAMILY HISTORY Problem Relation Age of Onset Hypertension Mother Heart Mother Stroke Mother Cancer Father brain No Known Problems Brother Rheumatologic disease Daughter Rh arthritis. Social History Tobacco Use Smoking status: Former Current packs/day: 0.00 Average packs/day: 1 pack/day for 10.0 years (10.0 ttl pk-yrs) Types: Cigarettes Start date: 10/27/1983 Quit date: 10/27/1993 Years since quittin.1 Smokeless tobacco: Never Tobacco comments: ETS: Father in childhood home, at patient age 5. No ETS in adult homes. Vaping Use Vaping status: Never Used Substance Use Topics Alcohol use: Yes Comment: 3-4 times a week (a glass of wine with dinner) Drug use: No EXAM: BP 132/70 Pulse 70 Temp 37.3 ?C (99.2 ?F) (Tympanic) Wt 67.6 kg (149 lb) SpO2 94% BMI 29.10 kg/m? PHYSICAL EXAM: Physical Exam Vitals reviewed. Constitutional: Appearance: Normal appearance. HENT: Head: Normocephalic. Right Ear: Tympanic membrane, ear canal and external ear normal. There is no impacted cerumen. Left Ear: Tympanic membrane, ear canal and external ear normal. There is no impacted cerumen. Nose: No congestion or rhinorrhea. Mouth/Throat: Pharynx: No oropharyngeal exudate or posterior oropharyngeal erythema. Cardiovascular: Rate and Rhythm: Normal rate and regular rhythm. Pulses: Normal pulses. Heart sounds: Normal heart sounds. Comments: Split S2 Pulmonary: Effort: Pulmonary effort is normal. Breath sounds: Normal breath sounds. No wheezing, rhonchi or rales. Comments: Dry cough that is very troublesome during appt. Musculo (more content not included)... [facility] 11-27-2024 History of Present illness Narrative This is a 84 year old female who presents today with: Patient presents with: Cough: 4 days HISTORY OF PRESENT ILLNESS: Jayashree Ferguson is a 84 year old female. Patient presents with: Cough: 4 days Runny nose and cough. Hx of bronchiectasis. Severe cough for 4 days so severe that her head is hurting. Having to take Tylenol for the headache. Fever. Uncertain about chills. Feeling very tired. Did have a sore throat for 2 days initially PAST MEDICAL HISTORY: PAST MEDICAL HISTORY Diagnosis Date BCC (basal cell carcinoma) 08/26/09 face Essential hypertension, benign Foraminal stenosis of lumbar region 1997 MRI History of lumbosacral spine surgery 12/07/2019 1. L5-S1 posterolateral arthrodesis. 2. L5-S1 laminectomy, medial facetectomy, bilateral foraminotomy. 3. 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 MRI 1997 Unspecified hypothyroidism Hypothyroidism PAST SURGICAL HISTORY Procedure Laterality Date ANESTHESIA EYELID RECONSTRUCTIVE PROCEDURE ARTHROSCOPY KNEE DIAGNOSTIC W/WO SYNOVIAL BX SPX Right Arthroscopy, knee LAMINECTOMY W/O FFD 11/29 VERT SEG LUMBAR 2001 Laminectomy, lumbar fusion x2 SKIN BX, 1 LESION Melanoma ressection TOTAL KNEE REPLACEMENT Right [facility] [place] ALLERGIES Erythromycin, Opioids - Morphine Analogues, Sulfa (Sulfonamide Antibiotics), Ciprofloxacin, Levaquin [Levofloxacin], Penicillin G, Tetracycline, and Tramadol MEDICATIONS Current Outpatient Medications Medication Sig levothyroxine (SYNTHROID) 75 mcg tablet Take 1 tablet by mouth once daily. Except 1 day a week take half a tablet. Take on empty stomach. For Thyroid atorvastatin (LIPITOR) 10 mg tablet Take 1 tablet by mouth once daily. dilTIAZem CD (CARDIZEM CD, CARTIA XT) 120 mg 24 hr capsule Take 1 capsule by mouth two times a day. losartan (COZAAR) 100 mg tablet Take 1 tablet by mouth once daily. labetalol (TRANDATE) 100 mg tablet Take 1 tablet by mouth once daily. sertraline (ZOLOFT) 25 mg tablet Take 1 tablet by mouth daily at bedtime. Cholecalciferol, Vitamin D3, 50 mcg (2,000 unit) cap Take 1 capsule by mouth. albuterol (PROVENTIL) 2.5 mg /3 mL (0.083 %) nebulizer solution Use 3 mL via nebulizer as needed for wheezing/shortness of breath. immun glob G,IgG,/gly/IgA ov50 (GAMMAGARD LIQUID INJECTION) by INJECTION(UNSPECIFIED PARENTERAL ROUTES) route. Infusion every 4 wks acetaminophen (TYLENOL) 500 mg tablet Take 1,000 mg by mouth three times daily as needed. ADVAIR HFA 115-21 mcg/actuation inhaler Inhale 2 Puffs as instructed two times a day. SYMBICORT 80-4.5 mcg/actuation inhaler No current facility-administered medications for this visit. FAMILY HISTORY Problem Relation Age of Onset Hypertension Mother Heart Mother Stroke Mother Cancer Father brain No Known Problems Brother Rheumatologic disease Daughter Rh arthritis. Social History Tobacco Use Smoking status: Former Current packs/day: 0.00 Average packs/day: 1 pack/day for 10.0 years (10.0 ttl pk-yrs) Types: Cigarettes Start date: 10/27/1983 Quit date: 10/27/1993 Years since quittin.1 Smokeless tobacco: Never Tobacco comments: ETS: Father in childhood home, at patient age 5. No ETS in adult homes. Vaping Use Vaping status: Never Used Substance Use Topics Alcohol use: Yes Comment: 3-4 times a week (a glass of wine with dinner) Drug use: No EXAM: BP 132/70 Pulse 70 Temp 37.3 C (99.2 F) (Tympanic) Wt 67.6 kg (149 lb) SpO2 94% BMI 29.10 kg/m PHYSICAL EXAM: Physical Exam Vitals reviewed. Constitutional: Appearance: Normal appearance. HENT: Head: Normocephalic. Right Ear: Tympanic membrane, ear canal and external ear normal. There is no impacted cerumen. Left Ear: Tympanic membrane, ear canal and external ear normal. There is no impacted cerumen. Nose: No congestion or rhinorrhea. Mouth/Throat: Pharynx: No oropharyngeal exudate or posterior oropharyngeal erythema. Cardiovascular: Rate and Rhythm: Normal rate and regular rhythm. Pulses: Normal pulses. Heart sounds: Normal heart sounds. Comments: Split S2 Pulmonary: Effort: Pulmonary effort is normal. Breath sounds: Normal breath sounds. No wheezing, rhonchi or rales. Comments: Dry cough that is very troublesome during appt. Musculoskeletal: General: Normal range of motion. Skin: General: Skin is warm and dry. Neurological: Mental Status: She is alert and oriented to person, place, and time. LABS: CKD- stage IIIb, check labs ASSESSMENT/PLAN: 1. Acute bronchitis with chronic obstructive pulmonary disease (COPD) ([facility]) ([facility]) - ICD9: 491.22, ICD10: J44.0, J20.9 (primary diagnosis) Acute flare- likely from a viral cause - DOXYCYCLINE HYCLATE 100 MG CAPSULE - METHYLPREDNISOLONE 4 MG TABLETS IN A DOSE PACK 2. Stage 3 chronic kidney disease, unspecified whether stage 3a or 3b CKD (HCC) - ICD9: 585.3, ICD10: N18.30 - eGFR: 48 Stable - Counseled on avoiding NSAIDs, adequate hydration Discussed treatment plan and patient voices understanding. Patient's questions answered appropriately. Medications and potential side effects were discussed and patient voices understanding. Return to the office as scheduled or as needed for worsening/no improvement. Maricel Kennedy APRN.DATA ANALYSIS INTERN documented in this encounter [facility] 11-27-2024 Telephone encounter Note Patient calls for cough. Nurse triage completed. Protocol recommends see provider within 4 hours. Appt scheduled. Care advice reviewed. Patient verbalizes understanding. Reason for Disposition [1] MILD difficulty breathing (e.g., minimal/no SOB at rest, SOB with walking, pulse <100) AND [2] still present when not coughing Answer Assessment - Initial Assessment Questions 1. ONSET: Patient reports 4 days ago . 2. SEVERITY: Patient reports that she has a had a lot of coughing spell. Tessalon Pearls help some. 3. SPUTUM: Thick yellow 4. HEMOPTYSIS: No 5. DIFFICULTY BREATHING: - MILD: No SOB at rest, mild SOB with walking, speaks normally in sentences, can lie down, no retractions, pulse < 100. Patient reports that she is always somewhat SOB and mildly worse than normal. 6. FEVER: 99-101 7. CARDIAC HISTORY: No heart attack, congestive heart failure. 8. LUNG HISTORY: Bronchiectasis. No pulmonary embolus, asthma, emphysema 9. PE RISK FACTORS: No recent major surgery, recent prolonged travel, bedridden 10. OTHER SYMPTOMS: Patient reports runny nose and wheezing. No chest pain 11. : NA 12. TRAVEL: No travel history, exposures Protocols used: Cough - Acute Drfeqqdekc-OFCID-UE [facility] 11-27-2024 Miscellaneous Notes Patient calls for cough. Nurse triage completed. Protocol recommends see provider within 4 hours. Appt scheduled. Care advice reviewed. Patient verbalizes understanding. Reason for Disposition [1] MILD difficulty breathing (e.g., minimal/no SOB at rest, SOB with walking, pulse <100) AND [2] still present when not coughing Answer Assessment - Initial Assessment Questions 1. ONSET: Patient reports 4 days ago . 2. SEVERITY: Patient reports that she has a had a lot of coughing spell. Tessalon Pearls help some. 3. SPUTUM: Thick yellow 4. HEMOPTYSIS: No 5. DIFFICULTY BREATHING: - MILD: No SOB at rest, mild SOB with walking, speaks normally in sentences, can lie down, no retractions, pulse < 100. Patient reports that she is always somewhat SOB and mildly worse than normal. 6. FEVER: 99-101 7. CARDIAC HISTORY: No heart attack, congestive heart failure. 8. LUNG HISTORY: Bronchiectasis. No pulmonary embolus, asthma, emphysema 9. PE RISK FACTORS: No recent major surgery, recent prolonged travel, bedridden 10. OTHER SYMPTOMS: Patient reports runny nose and wheezing. No chest pain 11. : NA 12. TRAVEL: No travel history, exposures Protocols used: Cough - Acute Ergyqdwvgr-[id number]-QY documented in this encounter [facility] 10-31-2024 Note Assessment/Plan: Diagnoses and all orders for this visit: Bronchiectasis without complication (HCC) - fluticasone propion-salmeteroL (Advair HFA) 115-21 mcg/actuation inhaler; Inhale 2 (two) puffs 2 (two) times a day Rinse mouth after each use . Physical deconditioning MORAN (dyspnea on exertion) Chronic cough Bronchiectasis is stable. No flare ups. Chronic cough waxes and wanes and is maybe a little worse. Her main concern today is her MORAN. Given her work up over the last few years, is more severe than what her PFTs would suggest. I do get the sense a large factor to her poor stamina is physical deconditioning and her back pain. She still does not wish to do pulmonary rehab in [place]. We discussed exercising outside of rehab. I did advise she consider an extended walker. She talked about exercising with a first aid trainer. She was advised to use her albuterol as needed for when the SOB or cough are severe. She can also use this 10 min before exercise. She has a follow up appt with me in January. She will keep this for now. However, if stable, she can call a week before and reschedule it for a later date. HISTORY Jayashree Ferguson is a 84 y.o. 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 Dec 2021 labs revealed low IgG, IgM, and Ig A levels. I did refer her to Dr Langford. Labs for CTD (in 2020 and 2021) were negative. January 2022 PFT - mild restriction January 2022 methacholine - negative (FEV1 dropped 17%) January [address] - mild lower lobe bronchiectasis and some plugging. Exacerbations: April 2023 Treatment: Acapella 20 exhalations BID Symbicort 2 puffs BID . changing to Advairt 115 HFA today 2 puffs BID Albuterol nebs every 4 hours prn (stopped BID dosing April 2024). She started immunoglobulin infusions in February 2022.. Previous treatments: Referral to pulm rehab to [facility] in 2022. She did not complete this due to issues with staff She is here today with her daughter. She has had no flare ups of her bronchiectasis. She does have a chronic cough and this can wax and wane. She has not needed steroids or antibiotics. She continues to have chronic MORAN and poor stamina. This has been a consistent/ chronic symptoms since I have known her. She feels it is getting worse No SOB at rest or ADLs. Any extended walking does cause dyspnea and walking up any hill or steps can cause symptoms. She also reports ongoing back pain which can be worsened/ exacerbated by walking. There were 2-3 episodes in which her SOB was severe. She did not use her albuterol. She can hear wheezing at times Interestingly, using the shopping cart alleviates some of her MORAN and her back pain No fever. No weight loss. No chest pain. No hemoptysis. No falls. No thrush . Current Outpatient Medications: albuterol (PROVENTIL) 2.5 mg /3 mL (0.083 %) nebulizer solution, Do one breathing treatment every 4 hours as needed for cough or shortness of breath. ICD 10 is J47.9 ., Disp: 180 mL, Rfl: 11 atorvastatin (LIPITOR) 10 MG tablet, Take 1 (one) tablet (10 mg total) by mouth nightly ., Disp: , Rfl: cholecalciferol, vitamin D3, 2,000 unit cap, Take 1 (one) capsule by mouth every evening ., Disp: , Rfl: diltiazem (TIAZAC) 120 MG 24 hr capsule, Take 1 (one) capsule (120 mg total) by mouth 2 (two) times a day ., Disp: , Rfl: labetalol (NORMODYNE) 100 MG tablet, Take 1 (one) tablet (100 mg total) by mouth every morning ., Disp: , Rfl: levothyroxine (SYNTHROID, LEVOTHROID) 75 MCG tablet, Take 1 (one) tablet (75 mcg total) by mouth 5 (five) times a week Tuesday through Tuesday ., Disp: , Rfl: levothyroxine (SYNTHROID, LEVOTHROID) 75 MCG tablet, Take 0.5 (one-half) tablet (37.5 mcg total) by mouth twice weekly on Tuesday and Tuesday ., Disp: , Rfl: losartan (COZAAR) 100 MG tablet, Take 1 (one) tablet (100 mg total) by mouth every morning ., Disp: , Rfl: MUCUS CLEARING DEVICE [place], by Miscellaneous route Order sent to [facility] 01/25/22 ., Disp: , Rfl: nebulizer accessories Kit, Use as directed ., Disp: 2 kit, Rfl: 0 sertraline (ZOLOFT) 25 MG tablet, Take 1 (one) tablet (25 mg total) by mouth daily ., Disp: , Rfl: therapeutic multivitamin (THERAGRAN) tablet, Take 1 (one) tablet by mouth every evening ., Disp: , Rfl: fluticasone propion-salmeteroL (Advair HFA) 115-21 mcg/actuation inhaler, Inhale 2 (two) puffs 2 (two) times a day Rinse mouth after each use ., Disp: 36 g, Rfl: 3 fluticasone propionate (FLONASE) 50 mcg/actuation nasal spray, Instill 2 (two) sprays into each nostril daily . (Patient not taking: Reported on 10/17/2023 .), Disp: 16 g, Rfl: 11 Allergies as of 10/31/2024 - Reviewed 10/31/2024 Allergen Reaction Noted Sulfa (sulfonamide antibiotics) Anaphylaxis 11/25/2017 Penicillins Swelling and Rash 11/25/2017 Cipro [ciprofloxacin hcl] Other (See Comments) 01/25/2022 Opioids - morphine analogues GI Intolerance 11/25/2017 Immunization H (more content not included)... [facility] 10-31-2024 History of Present illness Narrative Assessment/Plan: Diagnoses and all orders for this visit: Bronchiectasis without complication (HCC) - fluticasone propion-salmeteroL (Advair HFA) 115-21 mcg/actuation inhaler; Inhale 2 (two) puffs 2 (two) times a day Rinse mouth after each use . Physical deconditioning MORAN (dyspnea on exertion) Chronic cough Bronchiectasis is stable. No flare ups. Chronic cough waxes and wanes and is maybe a little worse. Her main concern today is her MORAN. Given her work up over the last few years, is more severe than what her PFTs would suggest. I do get the sense a large factor to her poor stamina is physical deconditioning and her back pain. She still does not wish to do pulmonary rehab in [place]. We discussed exercising outside of rehab. I did advise she consider an extended walker. She talked about exercising with a first aid trainer. She was advised to use her albuterol as needed for when the SOB or cough are severe. She can also use this 10 min before exercise. She has a follow up appt with me in January. She will keep this for now. However, if stable, she can call a week before and reschedule it for a later date. HISTORY Jayashree Ferguson is a 84 y.o. 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 Dec 2021 labs revealed low IgG, IgM, and Ig A levels. I did refer her to Dr Langford. Labs for CTD (in 2020 and 2021) were negative. January 2022 PFT - mild restriction January 2022 methacholine - negative (FEV1 dropped 17%) January [address] - mild lower lobe bronchiectasis and some plugging. Exacerbations: April 2023 Treatment: Acapella 20 exhalations BID Symbicort 2 puffs BID . changing to Advairt 115 HFA today 2 puffs BID Albuterol nebs every 4 hours prn (stopped BID dosing April 2024). She started immunoglobulin infusions in February 2022.. Previous treatments: Referral to pulm rehab to [facility] in 2022. She did not complete this due to issues with staff She is here today with her daughter. She has had no flare ups of her bronchiectasis. She does have a chronic cough and this can wax and wane. She has not needed steroids or antibiotics. She continues to have chronic MORAN and poor stamina. This has been a consistent/ chronic symptoms since I have known her. She feels it is getting worse No SOB at rest or ADLs. Any extended walking does cause dyspnea and walking up any hill or steps can cause symptoms. She also reports ongoing back pain which can be worsened/ exacerbated by walking. There were 2-3 episodes in which her SOB was severe. She did not use her albuterol. She can hear wheezing at times Interestingly, using the shopping cart alleviates some of her MORAN and her back pain No fever. No weight loss. No chest pain. No hemoptysis. No falls. No thrush . Current Outpatient Medications: albuterol (PROVENTIL) 2.5 mg /3 mL (0.083 %) nebulizer solution, Do one breathing treatment every 4 hours as needed for cough or shortness of breath. ICD 10 is J47.9 ., Disp: 180 mL, Rfl: 11 atorvastatin (LIPITOR) 10 MG tablet, Take 1 (one) tablet (10 mg total) by mouth nightly ., Disp: , Rfl: cholecalciferol, vitamin D3, 2,000 unit cap, Take 1 (one) capsule by mouth every evening ., Disp: , Rfl: diltiazem (TIAZAC) 120 MG 24 hr capsule, Take 1 (one) capsule (120 mg total) by mouth 2 (two) times a day ., Disp: , Rfl: labetalol (NORMODYNE) 100 MG tablet, Take 1 (one) tablet (100 mg total) by mouth every morning ., Disp: , Rfl: levothyroxine (SYNTHROID, LEVOTHROID) 75 MCG tablet, Take 1 (one) tablet (75 mcg total) by mouth 5 (five) times a week Tuesday through Tuesday ., Disp: , Rfl: levothyroxine (SYNTHROID, LEVOTHROID) 75 MCG tablet, Take 0.5 (one-half) tablet (37.5 mcg total) by mouth twice weekly on Tuesday and Tuesday ., Disp: , Rfl: losartan (COZAAR) 100 MG tablet, Take 1 (one) tablet (100 mg total) by mouth every morning ., Disp: , Rfl: MUCUS CLEARING DEVICE MISC, by Miscellaneous route Order sent to [facility] 01/25/22 ., Disp: , Rfl: nebulizer accessories Kit, Use as directed ., Disp: 2 kit, Rfl: 0 sertraline (ZOLOFT) 25 MG tablet, Take 1 (one) tablet (25 mg total) by mouth daily ., Disp: , Rfl: therapeutic multivitamin (THERAGRAN) tablet, Take 1 (one) tablet by mouth every evening ., Disp: , Rfl: fluticasone propion-salmeteroL (Advair HFA) 115-21 mcg/actuation inhaler, Inhale 2 (two) puffs 2 (two) times a day Rinse mouth after each use ., Disp: 36 g, Rfl: 3 fluticasone propionate (FLONASE) 50 mcg/actuation nasal spray, Instill 2 (two) sprays into each nostril daily . (Patient not taking: Reported on 10/17/2023 .), Disp: 16 g, Rfl: 11 Allergies as of 10/31/2024 - Reviewed 10/31/2024 Allergen Reaction Noted Sulfa (sulfonamide antibiotics) Anaphylaxis 11/25/2017 Penicillins Swelling and Rash 11/25/2017 Cipro [ciprofloxacin hcl] Other (See Comments) 01/25/2022 Opioids - morphine analogues GI Intolerance 11/25/2017 Immunization History Administered Date(s) Administered Moderna Bivalent Booster:6-11 YRS 0.25mL; 12+YRS 0.5mL 11/08/2022 Moderna SARS-CoV-2 Vaccination 12/26/2020, 01/23/2021, 10/29/2021 Past Medical History: Diagnosis Date Anxiety Arthritis Back pain Bladder problem freq / leakage Breast cyst Breast mass Bronchitis Cancer (HCC) melanoma Cataract removed Complication of anesthesia Depression Disease of thyroid gland History of echocardiogram History of stress test Hyperlipidemia Hypertension Hypothyroidism Irritable bowel syndrome Lumbar foraminal stenosis Measles Osteoporosis Pneumonia PONV (postoperative nausea and vomiting) Pulmonary nodule SOB (shortness of breath) Thyroid dysfunction Past Surgical History: Procedure Laterality Date ARTHROPLASTY KNEE TOTAL Right 11/30/2017 Procedure: RIGHT TOTAL KNEE ARTHROPLASTY ; Surgeon: Rony Guerrero MD; Location: [facility] Main OR; Service: Orthopedic BACK SURGERY COLONOSCOPY JOINT REPLACEMENT lymphectomy POSTERIOR LUMBAR INTERBODY FUSION SINGLE LEVEL N/A 12/07/2019 Procedure: LUMBAR FIVE-SACRAL ONE FACETECTOMY AND FUSION, REPLACE HARDWARE; Surgeon: Mariana Murillo MD; Location: [facility] NEURO OR; Service: Neurological SKIN GRAFT SPINAL FUSION TONSILLECTOMY Family History Problem Relation Age of Onset Heart disease Mother Stroke Mother Brain cancer Father Social History Socioeconomic History Marital status: Tobacco Use Smoking status: Former Current packs/day: 1.00 Average packs/day: 1 pack/day for 4.0 years (4.0 ttl pk-yrs) Types: Cigarettes Passive exposure: Past Smokeless tobacco: Never Tobacco comments: in college Vaping Use Vaping status: Never Used Substance and Sexual Activity Alcohol use: Yes Alcohol/week: 3.0 standard drinks of alcohol Types: 3 Glasses of wine per week Comment: one or more times a week Drug use: Never Sexual activity: Not Currently Social Drivers of Health Food Insecurity: No Food Insecurity (10/09/2023) Received from [facility] Hunger Vital Sign Worried About Running Out of Food in the Last Year: Never true Ran Out of Food in the Last Year: Never true Transportation Needs: No Transportation Needs (10/09/2023) Received from [facility] PRAPARE - Transportation Lack of Transportation (Medical): No Lack of Transportation (Non-Medical): No Physical Activity: Patient Declined (10/09/2023) Received from [facility] Exercise Vital Sign Days of Exercise per Week: Patient declined Minutes of Exercise per Session: Patient declined Stress: Patient Declined (10/09/2023) Received from [facility] [employer] [place] [employer] - Occupational Stress Questionnaire Feeling of Stress : Patient declined Social Connections: Unknown (10/09/2023) Received from [facility] Social Connection and Isolation Panel [NHANES] Frequency of Communication with Friends and Family: More than three times a week Frequency of Social Gatherings with Friends and Family: More than three times a week Attends Voodoo Services: Patient declined Active Member of Clubs or Organizations: Patient declined Attends Club or Organization Meetings: Patient declined Marital Status: Patient declined Housing Stability: Low Risk (10/09/2023) [facility] from [facility] Housing Stability Vital Sign Unable to Pay for Housing in the Last Year: No Number of Places Lived in the Last Year: 1 Unstable Housing in the Last Year: No Vitals: 10/31/24 1252 BP: (!) 158/76 BP Location: Right arm Patient Position: Sitting BP Cuff Size: Adult Pulse: 70 Temp: 97.6 F (36.4 C) SpO2: 96% Weight: 66.2 kg (146 lb) Height: 5' EXAM: Gerneral: alert, oriented x 3, NAD. 146 lbs today. She was 143 lbs in April 2024. Eyes: clear conjunctiva ENT: Not hoarse. CVS: RRR, no MGR, no JVD or edema Pulm: Clear. No wheezing, crackles, no dullness. Not labored. No cyanosis or clubbing. Breath sounds and chest wall movement are normal. She was able to walk 1050 feet today on RA. O2 sat did not drop below 93%. Max HR was 105 bpm. She did become dyspneic with walking. This resolved with rest Psych: alert, appropriate. Pleasant documented in this encounter [facility] 09-27-2024 Telephone encounter Note Pt returned call and given provider's message below with verbalized understanding. Patient agreeable to change thyroid dose this week and return to lab around 11-01-24 to re-check TSH. Reports her number is correct in the chart, she never had a 7 at the end of her number, it's always been a 1. [facility] 09-27-2024 Miscellaneous Notes Pt returned call and given provider's message below with verbalized understanding. Patient agreeable to change thyroid dose this week and return to lab around 11-01-24 to re-check TSH. Reports her number is correct in the chart, she never had a 7 at the end of her number, it's always been a 1. Letter mailed to pt home asking pt to call office back for results and to update her phone number. Judith Miller MA Sergio Palmer [phone] called in stating he has been getting calls regarding Jayashree. Sergio states he does not know her and not relation. This number has been removed from [facility] chart. Will need to update next time she is in office or next time she calls thank you LM on pt's VM to return call. Sending [employer] message to pt notifying her that office has attempted to contact her x 3 with no call back received. Asked pt to contact office. Will watch for pt to review message, if not reviewed will send letter. Arianna Rangel MA Message left for pt to call back for results. Judith Miller MA Message left for return call. Amanda Hyde MA Tsh is borderline low. Given her fatigue.change synthroid to 75 mcg once a day and only take a 1/2 tab one day a week (instead of two). Recheck tsh in six weeks. documented in this encounter [facility] 09-18-2024 Telephone encounter Note Letter mailed to pt home asking pt to call office back for results and to update her phone number. Judith Miller MA [facility] 09-18-2024 Telephone encounter Note Sergio Palmer [phone] called in stating he has been getting calls regarding Jayashree. Sergio states he does not know her and not relation. This number has been removed from [facility] chart. Will need to update next time she is in office or next time she calls thank you [facility] 09-18-2024 Telephone encounter Note LM on pt's VM to return call. Sending [employer] message to pt notifying her that office has attempted to contact her x 3 with no call back received. Asked pt to contact office. Will watch for pt to review message, if not reviewed will send letter. Arianna Rangel MA [facility] 09-17-2024 Telephone encounter Note Message left for pt to call back for results. Judith Miller MA [facility] 09-13-2024 Telephone encounter Note Message left for return call. Amanda Hyde MA [facility] 09-13-2024 Telephone encounter Note Tsh is borderline low. Given her fatigue.change synthroid to 75 mcg once a day and only take a 1/2 tab one day a week (instead of two). Recheck tsh in six weeks. [facility] 09-12-2024 Instructions Herminio Whitman MD - 09/12/2024 11:29 AM EDT Call with bp when gets next infusion. documented in this encounter [facility] 09-12-2024 History of Present illness Narrative Patient presents with: 6 Month Exam HPI: Patient presents today for office visit for follow up. HLD: Current medication: Atorvastatin 10 mg daily. No side effects. HTN: Current medication: Losartan 100 mg daily Labetalol 100 mg daily Diltiazem 120 mg BID Does not monitor BP. Denies chest pain. Denies dizziness. Denies palpitations. No syncopal episodes. No edema. Forgot to take her meds last night. Always with shortness of breath. States the shortness of breath is killing me More coughing etc. Having frequent headaches. States first thing in the morning will have one. Mentions she thinks it's from her arthritis in her neck. Had full cardiac work up in [place] in the last year. Has significant lung disease. Follows with Pulmonary. Insurance will no longer pay for Symbicort. Having to use albuterol neb BID. Mentions severe fatigue. Having to take naps throughout the day. States she tries not to but sometimes has to. Having generalized weakness. Appetite is not what it is. Declines sleep apnea testing. Occasional snoring. Still getting infusions. Moods are down. Is only on zoloft 25. Suggested we could increase but she feels it worsens her tremor. Red flags for re-assessment reviewed with patient in detail. MEDICATIONS: Current Outpatient Medications Medication Sig atorvastatin (LIPITOR) 10 mg tablet Take 1 tablet by mouth once daily. dilTIAZem CD (CARDIZEM CD, CARTIA XT) 120 mg 24 hr capsule Take 1 capsule by mouth two times a day. losartan (COZAAR) 100 mg tablet Take 1 tablet by mouth once daily. labetalol (TRANDATE) 100 mg tablet Take 1 tablet by mouth once daily. sertraline (ZOLOFT) 25 mg tablet Take 1 tablet by mouth daily at bedtime. levothyroxine (SYNTHROID) 75 mcg tablet Take 1 tablet by mouth once daily. Except 2 days a week take half a tablet. Take on empty stomach. For Thyroid SYMBICORT 80-4.5 mcg/actuation inhaler Cholecalciferol, Vitamin D3, 50 mcg (2,000 unit) cap Take 1 capsule by mouth. albuterol (PROVENTIL) 2.5 mg /3 mL (0.083 %) nebulizer solution Use 3 mL via nebulizer as needed for wheezing/shortness of breath. immun glob G,IgG,/gly/IgA ov50 (GAMMAGARD LIQUID INJECTION) by INJECTION(UNSPECIFIED PARENTERAL ROUTES) route. Infusion every 4 wks acetaminophen (TYLENOL) 500 mg tablet Take 1,000 mg by mouth three times daily as needed. No current facility-administered medications for this visit. ALLERGIES: ALLERGIES Allergen Reactions Erythromycin Vomiting Opioids - Morphine * GI Upset Vomiting. Stomach spasms. Sulfa (Sulfonamide * Anaphylaxis Ciprofloxacin Contraindication-Medical Surgical Tendon rupture with Cipro Levaquin [Levofloxa* Contraindication-Medical Surgical Tendon rupture Penicillin G Rash Childhood dose. Rash elbows and knees, swelling Tetracycline Vomiting Tramadol Vomiting PAST MEDICAL HISTORY Diagnosis Date BCC (basal cell carcinoma) 08/26/09 face Essential hypertension, benign Foraminal stenosis of lumbar region 1997 MRI History of lumbosacral spine surgery 12/07/2019 1. L5-S1 posterolateral arthrodesis. 2. L5-S1 laminectomy, medial facetectomy, bilateral foraminotomy. 3. 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 Social History Tobacco Use Smoking status: Former Current packs/day: 0.00 Average packs/day: 1 pack/day for 10.0 years (10.0 ttl pk-yrs) Types: Cigarettes Start date: 10/27/1983 Quit date: 10/27/1993 Years since quittin.8 Smokeless tobacco: Never Tobacco comments: ETS: Father in childhood home, at patient age 5. No ETS in adult homes. Vaping Use Vaping status: Never Used Substance Use Topics Alcohol use: Yes Comment: 3-4 times a week (a glass of wine with dinner) Drug use: No Reviewed current medications, allergies, past medical history, surgical history, family history and social history today. REVIEW OF SYSTEMS Reminded to follow up with dermatolgoy. No gi or gi issues. All other reviewed and negative other than HPI. HEALTH MAINTENANCE: Reviewed health maintenance issues today and recommended the following in detail. There are no preventive care reminders to display for this patient. VITALS: BP 154/100 Pulse 69 Ht 152.4 cm (5') Wt 67.7 kg (149 lb 4 oz) SpO2 97% BMI 29.15 kg/m Last 4 Encounter Wt Readings: Date: Wt: 05/21/2024 65.8 kg (145 lb) 05/14/2024 66.3 kg (146 lb 3.2 oz) 04/24/2024 66.2 kg (146 lb) 03/05/2024 67.1 kg (148 lb) PHYSICAL EXAMINATION: General appearance: Well appearing, alert, in no acute distress, well-hydrated, well nourished. Skin: Skin color, texture, turgor normal, no suspicious rashes or lesions Head: Normocephalic, no masses, lesions, tenderness or abnormalities Lungs: Lungs clear to auscultation. No wheezing, rhonchi, rales Heart: RRR without murmur, gallop, or rubs. No ectopy Abdomen: Normal abdominal exam, Abdomen soft, non-tender. Bowel sounds normal. No masses, organomegaly Extremities: No deformities, edema, skin discoloration, clubbing or cyanosis. Good capillary refill. ASSESSMENT/PLAN: 1. Essential hypertension, benign - ICD9: 401.1, ICD10: I10 (primary diagnosis) - Worsening control - Continue current medications - worsened by not taking meds last night. Will call with bp in next month. 2. Bronchiectasis without complication (HCC) - ICD9: 494.0, ICD10: J47.9 - per pulmonary. 3. Stage 3 chronic kidney disease, unspecified whether stage 3a or 3b CKD (HCC) - ICD9: 585.3, ICD10: - COMPLETE BLOOD COUNT AND DIFFERENTIAL - BASIC METABOLIC PANEL 4. Acquired hypothyroidism - ICD9: 244.9, ICD10: E03.9 - check labs. - THYROID STIMULATING HORMONE - T4/FTI/T4U 5. H/O NOSE//PERS HX MALIG SKIN MELANOMA - ICD9: V10.82, ICD10: Z85.820 - per derm 6. Fatigue, unspecified type - ICD9: 780.79, ICD10: R53.83 - can consider med changes. - THYROID STIMULATING HORMONE - T4/FTI/T4U 7. Immunodeficiency (HCC) - ICD9: 279.3, ICD10: D84.9 - per pulmonary. 8. Anxiety with depression - ICD9: 300.4, ICD10: F41.8 - continue meds. Herminio BORGES in one month. Call with bp and prn. documented in this encounter [facility] 08-09-2024 Telephone encounter Note Prescription Refill Information The patient has been identified by name and date of : Yes Caregiver verified no other encounters exist for this prescription request: Yes Caregiver confirmed with patient/requestor that no other refills are due, in the near future, with this provider at this time: Yes The last office visit in the department: 05/21/24 Does the patient have a future office visit with this provider/department: Yes 09/12/24 Requested Prescriptions Pending Prescriptions Disp Refills sertraline (ZOLOFT) 25 mg tablet 90 tablet 3 Sig: Take 1 tablet by mouth daily at bedtime. Prisca Nelson LPN August 09, 2024 2:09 PM [facility] 08-09-2024 Miscellaneous Notes Prescription Refill Information The patient has been identified by name and date of : Yes Caregiver verified no other encounters exist for this prescription request: Yes Caregiver confirmed with patient/requestor that no other refills are due, in the near future, with this provider at this time: Yes The last office visit in the department: 05/21/24 Does the patient have a future office visit with this provider/department: Yes 09/12/24 Requested Prescriptions Pending Prescriptions Disp Refills sertraline (ZOLOFT) 25 mg tablet 90 tablet 3 Sig: Take 1 tablet by mouth daily at bedtime. Prisca Nelson LPN August 09, 2024 2:09 PM documented in this encounter [facility] 08-09-2024 Telephone encounter Note Prescription Refill Information The patient has been identified by name and date of : Yes Caregiver verified no other encounters exist for this prescription request: Yes Caregiver confirmed with patient/requestor that no other refills are due, in the near future, with this provider at this time: Yes The last office visit in the department: 05/21/24 Does the patient have a future office visit with this provider/department: Yes 09/12/24 Requested Prescriptions Pending Prescriptions Disp Refills dilTIAZem CD (CARDIZEM CD, CARTIA XT) 120 mg 24 hr capsule 180 capsule 3 Sig: Take 1 capsule by mouth two times a day. losartan (COZAAR) 100 mg tablet 90 tablet 3 Sig: Take 1 tablet by mouth once daily. labetalol (TRANDATE) 100 mg tablet 90 tablet 3 Sig: Take 1 tablet by mouth once daily. Prisca Nelson LPN August 09, 2024 1:51 PM [facility] 08-09-2024 Miscellaneous Notes Prescription Refill Information The patient has been identified by name and date of : Yes Caregiver verified no other encounters exist for this prescription request: Yes Caregiver confirmed with patient/requestor that no other refills are due, in the near future, with this provider at this time: Yes The last office visit in the department: 05/21/24 Does the patient have a future office visit with this provider/department: Yes 09/12/24 Requested Prescriptions Pending Prescriptions Disp Refills dilTIAZem CD (CARDIZEM CD, CARTIA XT) 120 mg 24 hr capsule 180 capsule 3 Sig: Take 1 capsule by mouth two times a day. losartan (COZAAR) 100 mg tablet 90 tablet 3 Sig: Take 1 tablet by mouth once daily. labetalol (TRANDATE) 100 mg tablet 90 tablet 3 Sig: Take 1 tablet by mouth once daily. Prisca Nelson LPN August 09, 2024 1:51 PM documented in this encounter [facility] 08-09-2024 Telephone encounter Note Prescription Refill Information The patient has been identified by name and date of : Yes Caregiver verified no other encounters exist for this prescription request: Yes Caregiver confirmed with patient/requestor that no other refills are due, in the near future, with this provider at this time: Yes The last office visit in the department: 05/21/24 Does the patient have a future office visit with this provider/department: Yes 09/12/24 Requested Prescriptions Pending Prescriptions Disp Refills atorvastatin (LIPITOR) 10 mg tablet 90 tablet 3 Sig: Take 1 tablet by mouth once daily. Prisca Nelson LPN August 09, 2024 12:53 PM [facility] 08-09-2024 Miscellaneous Notes Prescription Refill Information The patient has been identified by name and date of : Yes Caregiver verified no other encounters exist for this prescription request: Yes Caregiver confirmed with patient/requestor that no other refills are due, in the near future, with this provider at this time: Yes The last office visit in the department: 05/21/24 Does the patient have a future office visit with this provider/department: Yes 09/12/24 Requested Prescriptions Pending Prescriptions Disp Refills atorvastatin (LIPITOR) 10 mg tablet 90 tablet 3 Sig: Take 1 tablet by mouth once daily. Prisca Nelson LPN August 09, 2024 12:53 PM documented in this encounter [facility] 05-28-2024 Telephone encounter Note Prescription Refill Information The patient has been identified by name and date of : Yes Caregiver verified no other encounters exist for this prescription request: Yes Caregiver confirmed with patient/requestor that no other refills are due, in the near future, with this provider at this time: No The last office visit in the department: 05/21/24 Does the patient have a future office visit with this provider/department: Yes 06/20/24 Requested Prescriptions Pending Prescriptions Disp Refills levothyroxine (SYNTHROID) 75 mcg tablet 90 tablet 3 Sig: Take 1 tablet by mouth once daily. Except 2 days a week take half a tablet. Take on empty stomach. For Thyroid Judith Miller MA May 28, 2024 9:48 AM [facility] 05-28-2024 Miscellaneous Notes Prescription Refill Information The patient has been identified by name and date of : Yes Caregiver verified no other encounters exist for this prescription request: Yes Caregiver confirmed with patient/requestor that no other refills are due, in the near future, with this provider at this time: No The last office visit in the department: 05/21/24 Does the patient have a future office visit with this provider/department: Yes 06/20/24 Requested Prescriptions Pending Prescriptions Disp Refills levothyroxine (SYNTHROID) 75 mcg tablet 90 tablet 3 Sig: Take 1 tablet by mouth once daily. Except 2 days a week take half a tablet. Take on empty stomach. For Thyroid Judith Miller MA May 28, 2024 9:48 AM documented in this encounter [facility] 05-21-2024 Note Addended by: MARICEL KENNEDY on: 05/21/2024 12:27 PM Modules accepted: Orders [facility] 05-21-2024 Miscellaneous Notes Addended by: MARICEL KENNEDY on: 05/21/2024 12:27 PM Modules accepted: Orders documented in this encounter [facility] 05-21-2024 Instructions Mraicel Kennedy APRN.CNS - 05/21/2024 12:17 PM EDT 1) Consult GENERAL SURGERY in [facility] [facility] in [place]- send ultrasound with consult 2) Follow up with Dr. Whitman in May documented in this encounter [facility] 05-21-2024 History of Present illness Narrative This is a 83 year old female who presents today with: Patient presents with: Follow Up: Ultrasound results HISTORY OF PRESENT ILLNESS: Jayashree Ferguson is a 83 year old female. Patient presents with: Follow Up: Ultrasound results Here for follow up on subcutaneous neoplasm Gets sore, no pain No growth Surgeon did not answer concerns Having anxiety thinking about a possible cancer again PAST MEDICAL HISTORY: PAST MEDICAL HISTORY Diagnosis Date BCC (basal cell carcinoma) 08/26/09 face Essential hypertension, benign Foraminal stenosis of lumbar region 1997 MRI History of lumbosacral spine surgery 12/07/2019 1. L5-S1 posterolateral arthrodesis. 2. L5-S1 laminectomy, medial facetectomy, bilateral foraminotomy. 3. 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 1997 Unspecified hypothyroidism Hypothyroidism PAST SURGICAL HISTORY Procedure Laterality Date ANESTHESIA EYELID RECONSTRUCTIVE PROCEDURE ARTHROSCOPY KNEE DIAGNOSTIC W/WO SYNOVIAL BX SPX Right Arthroscopy, knee LAMINECTOMY W/O FFD 11/29 VERT SEG LUMBAR 2001 Laminectomy, lumbar fusion x2 SKIN BX, 1 LESION Melanoma ressection TOTAL KNEE REPLACEMENT Right Orthopeadic One [place] ALLERGIES Erythromycin, Opioids - Morphine Analogues, Opioids [Other], Ciprofloxacin, Levaquin [Levofloxacin], Penicillin G, Sulpha Drugs [Other], Tetracycline, and Tramadol MEDICATIONS Current Outpatient Medications Medication Sig atorvastatin (LIPITOR) 10 mg tablet Take 1 tablet by mouth once daily. losartan (COZAAR) 100 mg tablet Take 1 tablet by mouth once daily. labetalol (TRANDATE) 100 mg tablet Take 1 tablet by mouth once daily. dilTIAZem CD (CARDIZEM CD, CARTIA XT) 120 mg 24 hr capsule Take 1 capsule by mouth twice daily. sertraline (ZOLOFT) 25 mg tablet Take 1 tablet by mouth daily at bedtime. SYMBICORT 80-4.5 mcg/actuation inhaler levothyroxine (SYNTHROID) 75 mcg tablet Take 1 tablet by mouth once daily. Except 2 days a week take half a tablet. Take on empty stomach. For Thyroid Cholecalciferol, Vitamin D3, 50 mcg (2,000 unit) cap Take 1 capsule by mouth. albuterol (PROVENTIL) 2.5 mg /3 mL (0.083 %) nebulizer solution Use 3 mL via nebulizer as needed for wheezing/shortness of breath. immun glob G,IgG,/gly/IgA ov50 (GAMMAGARD LIQUID INJECTION) by INJECTION(UNSPECIFIED PARENTERAL ROUTES) route. Infusion every 4 wks acetaminophen (TYLENOL) 500 mg tablet Take 1,000 mg by mouth three times daily as needed. No current facility-administered medications for this visit. FAMILY HISTORY Problem Relation Age of Onset Hypertension Mother Heart Mother Stroke Mother Cancer Father brain No Known Problems Brother Rheumatologic disease Daughter Rh arthritis. Social History Tobacco Use Smoking status: Former Packs/day: 1.00 Years: 10.00 Additional pack years: 0.00 Total pack years: 10.00 Types: Cigarettes Quit date: 10/27/1993 Years since quittin.5 Smokeless tobacco: Never Tobacco comments: ETS: Father in childhood home, at patient age 5. No ETS in adult homes. Vaping Use Vaping Use: Never used Substance Use Topics Alcohol use: Yes Comment: 3-4 times a week (a glass of wine with dinner) Drug use: No EXAM: BP 106/80 Pulse 74 Resp 16 Wt 65.8 kg (145 lb) SpO2 96% BMI 28.32 kg/m PHYSICAL EXAM: Physical Exam Vitals reviewed. Constitutional: Appearance: Normal appearance. Skin: Comments: Abdominal wall neoplasm is fixed, firm, non-tender- 6-7 mm in size Neurological: Mental Status: She is alert. IMAGES: ultrasound showed neoplasm- subcutaneous tissue ASSESSMENT/PLAN: 1. 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 Whitman in May 2. Anxiety with depression - ICD9: 300.4, ICD10: F41.8 Some better but wanted something - Buspirone 2.5 mg 2 x day as needed Discussed treatment plan and patient voices understanding. Patient's questions answered appropriately. Medications and potential side effects were discussed and patient voices understanding. Return to the office as scheduled or as needed for worsening/no improvement. Maricel Kennedy APRN.CNS documented in this encounter [facility] 05-14-2024 History of Present illness Narrative Jayashree Ferguson 1940 REFERRING PHYSICIAN: Maricel Kennedy A* CHIEF COMPLAINT: Consult (Screening for colon cancer) HPI: The patient is a 83 year old female presents with concern regarding left lower quadrant abdominal wall subcutaneous mass which she states is pea sized. She has noted it for about three weeks. She denies pain in the area. She cannot find it on examination today and I cannot detect it. An ultrasound of the lesion revealed a partially calcified lesion. The patient states that she had rec'd multiple subcutaneous injections in the area for her treatment for melanoma years ago. She is also referred for consideration for screening for colon cancer via colonoscopy. She notes no immediate family members with colon cancer. She denies blood in stools; she denies chronic abdominal pain; she denies changes in bowel habits. Her last colonoscopy was in 2001 and she states that she has bad memories of the procedure. PAST MEDICAL HISTORY Diagnosis Date BCC (basal cell carcinoma) 08/26/09 face Essential hypertension, benign Foraminal stenosis of lumbar region 1997 MRI History of lumbosacral spine surgery 12/07/2019 1. L5-S1 posterolateral arthrodesis. 2. L5-S1 laminectomy, medial facetectomy, bilateral foraminotomy. 3. 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 losartan (COZAAR) 100 mg tablet Take 1 tablet by mouth once daily. labetalol (TRANDATE) 100 mg tablet Take 1 tablet by mouth once daily. dilTIAZem CD (CARDIZEM CD, CARTIA XT) 120 mg 24 hr capsule Take 1 capsule by mouth twice daily. sertraline (ZOLOFT) 25 mg tablet Take 1 tablet by mouth daily at bedtime. SYMBICORT 80-4.5 mcg/actuation inhaler levothyroxine (SYNTHROID) 75 mcg tablet Take 1 tablet by mouth once daily. Except 2 days a week take half a tablet. Take on empty stomach. For Thyroid Cholecalciferol, Vitamin D3, 50 mcg (2,000 unit) cap Take 1 capsule by mouth. albuterol (PROVENTIL) 2.5 mg /3 mL (0.083 %) nebulizer solution Use 3 mL via nebulizer as needed for wheezing/shortness of breath. immun glob G,IgG,/gly/IgA ov50 (GAMMAGARD LIQUID INJECTION) by INJECTION(UNSPECIFIED PARENTERAL ROUTES) route. Infusion every 4 wks acetaminophen (TYLENOL) 500 mg tablet Take 1,000 mg by mouth three times daily as needed. No current facility-administered medications for this visit. ALLERGIES: Erythromycin, Opioids - Morphine Analogues, Opioids [Other], Ciprofloxacin, Levaquin [Levofloxacin], Penicillin G, Sulpha Drugs [Other], Tetracycline, and Tramadol PERSONAL HISTORY: Social History Tobacco Use Smoking status: Former Packs/day: 1.00 Years: 10.00 Additional pack years: 0.00 Total pack years: 10.00 Types: Cigarettes Quit date: 10/27/1993 Years since quittin.5 Smokeless tobacco: Never Tobacco comments: ETS: Father in childhood home, at patient age 5. No ETS in adult homes. Vaping Use Vaping Use: Never used Substance Use Topics Alcohol use: Yes Comment: 3-4 times a week (a glass of wine with dinner) Drug use: No FAMILY HISTORY Problem Relation Age of Onset Hypertension Mother Heart Mother Stroke Mother Cancer Father brain No Known Problems Brother Rheumatologic disease Daughter Rh arthritis. The review of systems data was entered by the nurse and reviewed by ok Nursing Notes: Keyonna Addison LPN 05/14/2024 11:34 AM Signed REVIEW OF SYSTEMS: General: The patient NOTES fatigue, denies weight loss, denies weight gain, denies feeling hot, and denies feelings of cold. Eyes: The patient denies glaucoma, denies eye injury/surgery, wears glasses or contacts. Ear/Nose/Throat: The patient denies allergies, denies hayfever, denies ear infections, and denies bloody noses. Cardiovascular: The patient denies chest pain, denies heart disease, NOTES high blood pressure,denies cardiac stent, denies prior heart attack, denies irregular heart beat, NOTES high cholesterol, denies poor circulation, denies heart failure, other cardiac issues, denies claudication, denies cold feet, denies peripheral arterial stent. Respiratory: The patient denies tuberculosis, denies pneumonia, denies frequent cough, denies pulmonary embolism, NOTES shortness of breath, and denies coughing up blood. Gastrointestinal: The patient denies difficulty swallowing, denies acid reflux, denies ulcers, denies vomiting, denies jaundice/hepatitis, denies gallbladder problems, denies black or tarry stools, denies hemorrhoids, denies bleeding from rectum, denies diverticulitis, denies constipation, denies diarrhea, denies loss of stool control, and denies hernias. Kidney/Bladder: The patient denies kidney stones, denies urine infections, and denies bloody urine. Skin: The patient NOTES a history of skin cancer, denies bleeding/changing moles, and denies a history of skin rash. Neurologic: The patient denies a history of epilepsy/convulsions, denies headaches, denies head/spinal injuries, and denies stroke/TIA. Psychiatric: The patient denies psychiatric medications, denies depression, and denies voices, denies substance abuse. Endocrine: The patient denies thyroid disorders, NOTES diabetes, and denies hormonal problems. Hematologic: The patient denies a history of bruising, denies bleeding, and denies anemia, denies blood clots. Infections: The patient denies a history of measles and mumps, denies rheumatic fever, and denies sexually transmitted diseases. Musculoskeletal: The patient NOTES back pain/injury, NOTES back problems, denies sciatica, denies knee/foot trouble, denies arthritis, or denies gout. When was patient's last Mammogram screening? 2018 Last Colonoscopy: 2001 Keyonna Addison LPN PHYSICAL EXAMINATION: General: The patient is 83 year old female, well nourished, well hydrated in no acute distress. The patient is oriented to time, place, and person. VITALS: Blood pressure 108/76, pulse 91, temperature 36.5 C (97.7 F), height 152.4 cm (5'), weight 66.3 kg (146 lb 3.2 oz), SpO2 94%. Body mass index is 28.55 kg/m . Head: Normal cephalic, atraumatic Eyes: pupils are equally round, sclera are clear/anicteric Neck is supple with no tracheal deviation Cardiac: normal heart sounds, regular Respiratory: Normal respiratory excursion and pattern. Abdominal exam: benign, patient points to area where she thinks the lesion is - but she cannot find it and I cannot detect an abnormal lesion in this area Extremities: no clubbing, cyanosis or edema. Neuro: non focal Psych: normal mood Assessment IMPRESSION: subcutaneous mass of abdominal wall, screening for colon cancer via colonoscopy PLAN: I have discussed the above with the patient. I have offered colonoscopy. Patient states that she is not interested in colonoscopy at this time. With regard to her abdominal wall lesion, I have offered her referral to [facility] Interventional radiology for needle biopsy versus continued observation - patient chooses latter. I have encouraged patient to return to office if she changes her mind or if any worsening signs/symptoms. Patient acknowledges above. I have answered all questions to the patient s satisfaction and the patient has no further questions. I have confirmed and edited as necessary, the PFSH and ROS obtained by others. Consultation requested by Maricel Kennedy for an opinion regarding patient's abdominal wall subcutaneous mass and screening for colon cancer via colonoscopy. My final recommendations will be communicated back to the requesting physician by way of shared Medical record or letter to requesting physician via US mail. . Diagnoses: (R22.2) Subcutaneous mass of abdominal wall (Z12.11) Screening for colon cancer I spent a total of 25 minutes on the date of the service which included preparing to see the patient with review of any pertinent laboratory studies/radiological imaging/medical records, [id number] patient care, obtaining oral medical history from the patient in this encounter, performing a medically appropriate examination, counseling and educating the patient/family/caregiver, and completing appropriate medical documentation. Jayashree Reyes MD documented in this encounter [facility] 05-14-2024 Nurse Note REVIEW OF SYSTEMS: General: The patient NOTES fatigue, denies weight loss, denies weight gain, denies feeling hot, and denies feelings of cold. Eyes: The patient denies glaucoma, denies eye injury/surgery, wears glasses or contacts. Ear/Nose/Throat: The patient denies allergies, denies hayfever, denies ear infections, and denies bloody noses. Cardiovascular: The patient denies chest pain, denies heart disease, NOTES high blood pressure,denies cardiac stent, denies prior heart attack, denies irregular heart beat, NOTES high cholesterol, denies poor circulation, denies heart failure, other cardiac issues, denies claudication, denies cold feet, denies peripheral arterial stent. Respiratory: The patient denies tuberculosis, denies pneumonia, denies frequent cough, denies pulmonary embolism, NOTES shortness of breath, and denies coughing up blood. Gastrointestinal: The patient denies difficulty swallowing, denies acid reflux, denies ulcers, denies vomiting, denies jaundice/hepatitis, denies gallbladder problems, denies black or tarry stools, denies hemorrhoids, denies bleeding from rectum, denies diverticulitis, denies constipation, denies diarrhea, denies loss of stool control, and denies hernias. Kidney/Bladder: The patient denies kidney stones, denies urine infections, and denies bloody urine. Skin: The patient NOTES a history of skin cancer, denies bleeding/changing moles, and denies a history of skin rash. Neurologic: The patient denies a history of epilepsy/convulsions, denies headaches, denies head/spinal injuries, and denies stroke/TIA. Psychiatric: The patient denies psychiatric medications, denies depression, and denies voices, denies substance abuse. Endocrine: The patient denies thyroid disorders, NOTES diabetes, and denies hormonal problems. Hematologic: The patient denies a history of bruising, denies bleeding, and denies anemia, denies blood clots. Infections: The patient denies a history of measles and mumps, denies rheumatic fever, and denies sexually transmitted diseases. Musculoskeletal: The patient NOTES back pain/injury, NOTES back problems, denies sciatica, denies knee/foot trouble, denies arthritis, or denies gout. When was patient's last Mammogram screening? 2018 Last Colonoscopy: unsure, long time ago Keyonna Addison LPN [facility] 05-14-2024 Nurse Note REVIEW OF SYSTEMS: General: The patient NOTES fatigue, denies weight loss, denies weight gain, denies feeling hot, and denies feelings of cold. Eyes: The patient denies glaucoma, denies eye injury/surgery, wears glasses or contacts. Ear/Nose/Throat: The patient denies allergies, denies hayfever, denies ear infections, and denies bloody noses. Cardiovascular: The patient denies chest pain, denies heart disease, NOTES high blood pressure,denies cardiac stent, denies prior heart attack, denies irregular heart beat, NOTES high cholesterol, denies poor circulation, denies heart failure, other cardiac issues, denies claudication, denies cold feet, denies peripheral arterial stent. Respiratory: The patient denies tuberculosis, denies pneumonia, denies frequent cough, denies pulmonary embolism, NOTES shortness of breath, and denies coughing up blood. Gastrointestinal: The patient denies difficulty swallowing, denies acid reflux, denies ulcers, denies vomiting, denies jaundice/hepatitis, denies gallbladder problems, denies black or tarry stools, denies hemorrhoids, denies bleeding from rectum, denies diverticulitis, denies constipation, denies diarrhea, denies loss of stool control, and denies hernias. Kidney/Bladder: The patient denies kidney stones, denies urine infections, and denies bloody urine. Skin: The patient NOTES a history of skin cancer, denies bleeding/changing moles, and denies a history of skin rash. Neurologic: The patient denies a history of epilepsy/convulsions, denies headaches, denies head/spinal injuries, and denies stroke/TIA. Psychiatric: The patient denies psychiatric medications, denies depression, and denies voices, denies substance abuse. Endocrine: The patient denies thyroid disorders, NOTES diabetes, and denies hormonal problems. Hematologic: The patient denies a history of bruising, denies bleeding, and denies anemia, denies blood clots. Infections: The patient denies a history of measles and mumps, denies rheumatic fever, and denies sexually transmitted diseases. Musculoskeletal: The patient NOTES back pain/injury, NOTES back problems, denies sciatica, denies knee/foot trouble, denies arthritis, or denies gout. When was patient's last Mammogram screening? 2018 Last Colonoscopy: unsure, long time ago Keyonna Addison LPN documented in this encounter [facility] 05-10-2024 History of Present illness Narrative Assessment/Plan: Diagnoses and all orders for this visit: Bronchiectasis without complication (HCC) - albuterol (PROVENTIL) 2.5 mg /3 mL (0.083 %) nebulizer solution; Do one breathing treatment every 4 hours as needed for cough or shortness of breath. ICD 10 is J47.9 . - nebulizer accessories Kit; Use as directed . Immunoglobulin deficiency (HCC) Chronic cough MORAN (dyspnea on exertion) She is doing well in that her cough is mild/ sporadic and she has not had any flare ups of her bronchiectasis. She does have chronic MORAN which, given her work up over the last few years, is more severe than what her PFTs would suggest. I do get the sense a large factor to her poor stamina is physical deconditioning and her back pain. She does not wish to do pulmonary rehab in [place]. She was advised to call if she changes her mind or finds another facilty to attend. We discussed exercising outside of rehab. I did advise she consider walking with a cane or walker as hold onto sometime while walking seems to alleviate her back pain and her dyspnea. She reports receiving a letter starting Symbicort is no longer covered. She will message me later with the names of the covered brands. She can use her nebulizer as needed. She was advised to have a low threshold for using this She should call her DME when she needs new tubing for her nebulizer. Follow up in 9 months. HISTORY Jayashree Ferguson is a 83 y.o. 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 Dec 2021 labs revealed low IgG, IgM, and Ig A levels. I did refer her to Dr Langford. Labs for CTD (in 2020 and 2021) were negative. January 2022 PFT - mild restriction January 2022 methacholine - negative (FEV1 dropped 17%) January [address] - mild lower lobe bronchiectasis and some plugging. Exacerbations: April 2023 Treatment: Acapella 20 exhalations BID Symbicort 2 puffs BID (she takes this once daily as it makes her feel too jazzed to sleep) Albuterol nebs every 4 hours prn (stopped BID dosing April 2024). She started immunoglobulin infusions in February 2022.. Previous treatments: Referral to pulm rehab to [facility] in 2022. She did not complete this due to issues with staff She is here today with her daughter. Since last seen, there have been no flare ups. No bronchitis. No pneumonia. Chronic cough is mild and not intrusive. She has had chronic MORAN and poor stamina since I have known her. This continues to be an issues. No SOB at rest or ADLs. Any extended walking does cause dyspnea (and back pain). She does notice when holding onto the shopping cart, this alleviates her pain and her dyspnea. No fever. No weight loss. No chest pain. No hemoptysis. No falls. No thrush . Current Outpatient Medications: atorvastatin (LIPITOR) 10 MG tablet, Take 1 (one) tablet (10 mg total) by mouth nightly ., Disp: , Rfl: cholecalciferol, vitamin D3, 2,000 unit cap, Take 1 (one) capsule by mouth every evening ., Disp: , Rfl: diltiazem (TIAZAC) 120 MG 24 hr capsule, Take 1 (one) capsule (120 mg total) by mouth 2 (two) times a day ., Disp: , Rfl: inhalational spacing device inhaler, Use as instructed ., Disp: 1 each, Rfl: 2 labetalol (NORMODYNE) 100 MG tablet, Take 1 (one) tablet (100 mg total) by mouth every morning ., Disp: , Rfl: levothyroxine (SYNTHROID, LEVOTHROID) 75 MCG tablet, Take 1 (one) tablet (75 mcg total) by mouth 5 (five) times a week Tuesday through Tuesday ., Disp: , Rfl: levothyroxine (SYNTHROID, LEVOTHROID) 75 MCG tablet, Take 0.5 (one-half) tablet (37.5 mcg total) by mouth twice weekly on Tuesday and Tuesday ., Disp: , Rfl: losartan (COZAAR) 100 MG tablet, Take 1 (one) tablet (100 mg total) by mouth every morning ., Disp: , Rfl: MUCUS CLEARING DEVICE MISC, by Miscellaneous route Order sent to [facility] 01/25/22 ., Disp: , Rfl: sertraline (ZOLOFT) 25 MG tablet, Take 1 (one) tablet (25 mg total) by mouth daily ., Disp: , Rfl: Symbicort 80-4.5 mcg/actuation inhaler, Inhale 2 (two) puffs 2 (two) times a day Use with spacer. Rinse, gargle, spit with water after each use. ., Disp: 30.6 g, Rfl: 3 therapeutic multivitamin (THERAGRAN) tablet, Take 1 (one) tablet by mouth every evening ., Disp: , Rfl: albuterol (PROVENTIL) 2.5 mg /3 mL (0.083 %) nebulizer solution, Do one breathing treatment every 4 hours as needed for cough or shortness of breath. ICD 10 is J47.9 ., Disp: 180 mL, Rfl: 11 fluticasone propionate (FLONASE) 50 mcg/actuation nasal spray, Instill 2 (two) sprays into each nostril daily . (Patient not taking: Reported on 10/17/2023 .), Disp: 16 g, Rfl: 11 nebulizer accessories Kit, Use as directed ., Disp: 2 kit, Rfl: 0 Allergies as of 05/10/2024 - Reviewed 05/10/2024 Allergen Reaction Noted Sulfa (sulfonamide antibiotics) Anaphylaxis 11/25/2017 Penicillins Swelling and Rash 11/25/2017 Cipro [ciprofloxacin hcl] Other (See Comments) 01/25/2022 Opioids - morphine analogues GI Intolerance 11/25/2017 Immunization History Administered Date(s) Administered Moderna Bivalent Booster:6-11 YRS 0.25mL; 12+YRS 0.5mL 11/08/2022 Moderna SARS-CoV-2 Vaccination 12/26/2020, 01/23/2021, 10/29/2021 Past Medical History: Diagnosis Date Anxiety Arthritis Back pain Bladder problem freq / leakage Cancer (HCC) melanoma Cataract removed Complication of anesthesia Depression Disease of thyroid gland History of echocardiogram History of stress test Hyperlipidemia Hypertension Hypothyroidism Irritable bowel syndrome Lumbar foraminal stenosis Osteoporosis PONV (postoperative nausea and vomiting) SOB (shortness of breath) Past Surgical History: Procedure Laterality Date ARTHROPLASTY KNEE TOTAL Right 11/30/2017 Procedure: RIGHT TOTAL KNEE ARTHROPLASTY ; Surgeon: Rony Guerrero MD; Location: [facility] Main OR; Service: Orthopedic BACK SURGERY COLONOSCOPY JOINT REPLACEMENT lymphectomy POSTERIOR LUMBAR INTERBODY FUSION SINGLE LEVEL N/A 12/07/2019 Procedure: LUMBAR FIVE-SACRAL ONE FACETECTOMY AND FUSION, REPLACE HARDWARE; Surgeon: Mariana Murillo MD; Location: [facility] NEURO OR; Service: Neurological SKIN GRAFT SPINAL FUSION TONSILLECTOMY Family History Problem Relation Age of Onset Heart disease Mother Stroke Mother Brain cancer Father Social History Socioeconomic History Marital status: Tobacco Use Smoking status: Former Packs/day: 1.00 Years: 4.00 Additional pack years: 0.00 Total pack years: 4.00 Types: Cigarettes Passive exposure: Past Smokeless tobacco: Never Tobacco comments: in college Vaping Use Vaping Use: Never used Substance and Sexual Activity Alcohol use: Yes Alcohol/week: 3.0 standard drinks of alcohol Types: 3 Glasses of wine per week Comment: one or more times a week Drug use: Never Sexual activity: Not Currently Vitals: 05/10/24 1311 BP: (!) 149/73 BP Location: Right arm Patient Position: Sitting BP Cuff Size: Adult Pulse: 61 Resp: 18 Temp: 97.5 F (36.4 C) TempSrc: Infrared SpO2: 95% Weight: 64.9 kg (143 lb) Height: 5' EXAM: Gerneral: alert, oriented x 3, NAD. 143 lbs. No weight change since May 2023. Eyes: clear conjunctiva ENT: Not hoarse. CVS: RRR, no MGR, no JVD or edema Pulm: Clear. No wheezing, crackles, no dullness. Not labored. No cyanosis or clubbing. Breath sounds and chest wall movement are normal. Psych: alert, appropriate. Pleasant documented in this encounter [facility] 04-24-2024 Note HNO ID: [id number] Author: JUDIE PEACE RT(R) Service: ? Author Type: Technologist Type: Progress Notes Filed: 04/24/2024 15:23 Note Text: Radiology Service Progress Note PATIENT NAME: Jayashree Ferguson DATE OF SERVICE: April 24, 2024 TIME: 3:23 PM PATIENT IDENTITY VERIFICATION COMPLETED USING TWO (2) IDENTIFIERS: Name and Date of confirmed by patient verbally. FALL SCREENING: Has the patient had 2 falls in the last year or 1 fall with injury or currently using an Ambulatory Assistive Device (Walker, Cane, Wheelchair, Crutches, etc.)? No PATIENT GENDER DATA: Female. status: : No status: NO. PATIENT RELEVANT IMPLANT DATA REVIEWED: Yes PATIENT PRESENTS WITH AN IMPLANTABLE OR ATTACHED OFFENDER EMPLOYMENT SPECIALIST: No RADIOLOGY DEPARTMENT: Ultrasound PERIPHERAL IV DATA: Not applicable SIGNED BY: Judie Peace RDMS, RVT April 24, 2024 3:23 PM [facility] 04-24-2024 Telephone encounter Note Patient was made aware of the results. Patient verbalizes understanding. Saira Stern Ma [facility] 04-24-2024 Miscellaneous Notes Patient was made aware of the results. Patient verbalizes understanding. Saira Stern Ma Please let patient know that the little nodule is in the subcutaneous layer. I will ask for general surgery consult to have that removed. It will not be before she goes on vacation. However, it sounds like good news. Probably just a cyst like we talked about. documented in this encounter [facility] 04-24-2024 Telephone encounter Note Please let patient know that the little nodule is in the subcutaneous layer. I will ask for general surgery consult to have that removed. It will not be before she goes on vacation. However, it sounds like good news. Probably just a cyst like we talked about. [facility] 04-24-2024 History of Present illness Narrative Radiology Service Progress Note PATIENT NAME: Jayashree Ferguson DATE OF SERVICE: April 24, 2024 TIME: 3:23 PM PATIENT IDENTITY VERIFICATION COMPLETED USING TWO (2) IDENTIFIERS: Name and Date of confirmed by patient verbally. FALL SCREENING: Has the patient had 2 falls in the last year or 1 fall with injury or currently using an Ambulatory Assistive Device (Walker, Cane, Wheelchair, Crutches, etc.)? No PATIENT GENDER DATA: Female. status: : No status: NO. PATIENT RELEVANT IMPLANT DATA REVIEWED: Yes PATIENT PRESENTS WITH AN IMPLANTABLE OR ATTACHED OFFENDER EMPLOYMENT SPECIALIST: No RADIOLOGY DEPARTMENT: Ultrasound PERIPHERAL IV DATA: Not applicable SIGNED BY: Judie Peace RDMS, BRENDA April 24, 2024 3:23 PM documented in this encounter [facility] 04-24-2024 Instructions Maricel Kennedy APRN.ELECTROMYOGRAPHIC TECHNICIAN - 04/24/2024 2:01 PM EDT 1) us today of epidermal cyst or neoplasm left lower quadrant of abdomen 2) will call you documented in this encounter [facility] 04-24-2024 History of Present illness Narrative This is a 83 year old female who presents today with: Patient presents with: Lump: Left lower abdomen. Noticed it 3 weeks ago. Not painful. Has hx of cancer. HISTORY OF PRESENT ILLNESS: Jayashree Ferguson is a 83 year old female. Patient presents with: Lump: Left lower abdomen. Noticed it 3 weeks ago. Not painful. Has hx of cancer. 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 Three weeks ago, she noticed a lump on left side of abdomen- LLQ. Non-painful. Noticed it in shower. No fever or chills. No weight loss. Not getting regular check-ups from dermatology and no longer with oncology. Has vacation scheduled this Tuesday for a week. PAST MEDICAL HISTORY: PAST MEDICAL HISTORY Diagnosis Date BCC (basal cell carcinoma) 08/26/09 face Essential hypertension, benign Foraminal stenosis of lumbar region 1997 MRI History of lumbosacral spine surgery 12/07/2019 1. L5-S1 posterolateral arthrodesis. 2. L5-S1 laminectomy, medial facetectomy, bilateral foraminotomy. 3. 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 1997 Unspecified hypothyroidism Hypothyroidism PAST SURGICAL HISTORY Procedure Laterality Date ANESTHESIA EYELID RECONSTRUCTIVE PROCEDURE ARTHROSCOPY KNEE DIAGNOSTIC W/WO SYNOVIAL BX SPX Right Arthroscopy, knee LAMINECTOMY W/O FFD 11/29 VERT SEG LUMBAR 2001 Laminectomy, lumbar fusion x2 SKIN BX, 1 LESION Melanoma ressection TOTAL KNEE REPLACEMENT Right Orthopeadic One Jayesh ALLERGIES Erythromycin, Opioids - Morphine Analogues, Opioids [Other], Ciprofloxacin, Levaquin [Levofloxacin], Penicillin G, Sulpha Drugs [Other], Tetracycline, and Tramadol MEDICATIONS Current Outpatient Medications Medication Sig atorvastatin (LIPITOR) 10 mg tablet Take 1 tablet by mouth once daily. losartan (COZAAR) 100 mg tablet Take 1 tablet by mouth once daily. labetalol (TRANDATE) 100 mg tablet Take 1 tablet by mouth once daily. dilTIAZem CD (CARDIZEM CD, CARTIA XT) 120 mg 24 hr capsule Take 1 capsule by mouth twice daily. sertraline (ZOLOFT) 25 mg tablet Take 1 tablet by mouth daily at bedtime. SYMBICORT 80-4.5 mcg/actuation inhaler levothyroxine (SYNTHROID) 75 mcg tablet Take 1 tablet by mouth once daily. Except 2 days a week take half a tablet. Take on empty stomach. For Thyroid Cholecalciferol, Vitamin D3, 50 mcg (2,000 unit) cap Take 1 capsule by mouth. albuterol (PROVENTIL) 2.5 mg /3 mL (0.083 %) nebulizer solution Use 3 mL via nebulizer once daily. immun glob G,IgG,/gly/IgA ov50 (GAMMAGARD LIQUID INJECTION) by INJECTION(UNSPECIFIED PARENTERAL ROUTES) route. Infusion every 4 wks acetaminophen (TYLENOL) 500 mg tablet Take 1,000 mg by mouth three times daily as needed. No current facility-administered medications for this visit. FAMILY HISTORY Problem Relation Age of Onset Hypertension Mother Heart Mother Stroke Mother Cancer Father brain No Known Problems Brother Rheumatologic disease Daughter Rh arthritis. Social History Tobacco Use Smoking status: Former Packs/day: 1.00 Years: 10.00 Additional pack years: 0.00 Total pack years: 10.00 Types: Cigarettes Quit date: 10/27/1993 Years since quittin.5 Smokeless tobacco: Never Tobacco comments: ETS: Father in childhood home, at patient age 5. No ETS in adult homes. Substance Use Topics Alcohol use: Yes Comment: 3-4 times a week (a glass of wine with dinner) Drug use: No EXAM: BP 122/84 Pulse 72 Resp 16 Wt 66.2 kg (146 lb) SpO2 97% BMI 28.51 kg/m PHYSICAL EXAM: Physical Exam Vitals and nursing note reviewed. Constitutional: Appearance: Normal appearance. Cardiovascular: Rate and Rhythm: Normal rate and regular rhythm. Pulmonary: Effort: Pulmonary effort is normal. Breath sounds: Normal breath sounds. Abdominal: General: Abdomen is flat. Palpations: Abdomen is soft. There is no mass. Tenderness: There is no abdominal tenderness. There is no guarding. Comments: Pea sized neoplasm LLQ that is firm, round, non-fixed, non-tender Neurological: Mental Status: She is alert. LABS: get us epidermal cyst- superficial epidermal cyst LLQ ASSESSMENT/PLAN: 1. Neoplasm of uncertain behavior - ICD9: 238.9, ICD10: D48.9 LLQ pea sized neoplasm uncertain behavior LLQ, non-tender- freely moving, non-tender, round - ultrasound nodule- stat Discussed treatment plan and patient voices understanding. Patient's questions answered appropriately. Medications and potential side effects were discussed and patient voices understanding. Return to the office as scheduled or as needed for worsening/no improvement. Maricel Kennedy APRN.ELECTROMYOGRAPHIC TECHNICIAN documented in this encounter [facility] 03-05-2024 History of Present illness Narrative Patient presents with: Follow Up HPI: Patient presents today for office visit for follow up. HLD: No myalgias HTN: Denies chest pain No new or worsening shortness of breath Denies palpitations Denies edema PULM: Breathing is stable THYROID: Having less and less energy. Seems to be worse over the last 2 months. Hair is thinning. Has been thinning over the last year. No skin changes. Wonders if she is fighting getting old or her chronic back issues. Psych: emotionally doing well. Did see cardiology and had a work up due to her chronic shortness of breath. Was at [facility]. Still getting infusions for her pulmonary issues. Still sees dermatology. Did have a basal cell cancer. Has a benign essential tremor. Is on trandate. Is concerned because she has noted some occasional body rocking behaviors but can stop it. Red flags for re-assessment reviewed with patient in detail. Having more arthritis. Using tylenol. Discussed using tylenol prn. Also discussed Voltaren gel. Psych. Emotionally stable. MEDICATIONS: Current Outpatient Medications Medication Sig atorvastatin (LIPITOR) 10 mg tablet Take 1 tablet by mouth once daily. losartan (COZAAR) 100 mg tablet Take 1 tablet by mouth once daily. labetalol (TRANDATE) 100 mg tablet Take 1 tablet by mouth once daily. dilTIAZem CD (CARDIZEM CD, CARTIA XT) 120 mg 24 hr capsule Take 1 capsule by mouth twice daily. sertraline (ZOLOFT) 25 mg tablet Take 1 tablet by mouth daily at bedtime. SYMBICORT 80-4.5 mcg/actuation inhaler levothyroxine (SYNTHROID) 75 mcg tablet Take 1 tablet by mouth once daily. Except 2 days a week take half a tablet. Take on empty stomach. For Thyroid Cholecalciferol, Vitamin D3, 50 mcg (2,000 unit) cap Take 1 capsule by mouth. albuterol (PROVENTIL) 2.5 mg /3 mL (0.083 %) nebulizer solution Use 3 mL via nebulizer once daily. immun glob G,IgG,/gly/IgA ov50 (GAMMAGARD LIQUID INJECTION) by INJECTION(UNSPECIFIED PARENTERAL ROUTES) route. Infusion every 4 wks acetaminophen (TYLENOL) 500 mg tablet Take 1,000 mg by mouth three times daily as needed. No current facility-administered medications for this visit. ALLERGIES: ALLERGIES Allergen Reactions Erythromycin Vomiting Opioids - Morphine * GI Upset Vomiting. Stomach spasms. Opioids [Other] Vomiting All of them cause severe nausea and vomiting that can last 24 hours Ciprofloxacin Contraindication-Medical Surgical Tendon rupture with Cipro Levaquin [Levofloxa* Contraindication-Medical Surgical Tendon rupture Penicillin G Other: See Comments Childhood dose. Rash elbows and knees, swelling Sulpha Drugs [Other] Anaphylaxis Tetracycline Vomiting Tramadol Vomiting PAST MEDICAL HISTORY Diagnosis Date BCC (basal cell carcinoma) 08/26/09 face Essential hypertension, benign Foraminal stenosis of lumbar region 1997 MRI History of lumbosacral spine surgery 12/07/2019 1. L5-S1 posterolateral arthrodesis. 2. L5-S1 laminectomy, medial facetectomy, bilateral foraminotomy. 3. 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 Social History Tobacco Use Smoking status: Former Packs/day: 1.00 Years: 10.00 Additional pack years: 0.00 Total pack years: 10.00 Types: Cigarettes Quit date: 10/27/1993 Years since quittin.3 Smokeless tobacco: Never Tobacco comments: ETS: Father in childhood home, at patient age 5. No ETS in adult homes. Substance Use Topics Alcohol use: Yes Comment: 3-4 times a week (a glass of wine with dinner) Drug use: No Reviewed current medications, allergies, past medical history, surgical history, family history and social history today. REVIEW OF SYSTEMS All other reviewed and negative other than HPI. HEALTH MAINTENANCE: Reviewed health maintenance issues today and recommended the following in detail. Shingrix Vaccine(1 of 2) Never done RSV Vaccine(1 - 1-dose 60+ series) Never done DTaP,Tdap,Td Vaccine(2 - Tdap) due on 11/28/2012 Advance Directive Discussion-her ex is her surrogate. Behavioral Health Screening Never done VITALS: BP 115/70 Pulse 70 Ht 152.4 cm (5') Wt 67.1 kg (148 lb) BMI 28.90 kg/m Last 4 Encounter Wt Readings: Date: Wt: 10/10/2023 67.1 kg (148 lb) 06/16/2023 66.5 kg (146 lb 9.6 oz) 06/11/2023 66.7 kg (147 lb) 05/05/2023 65.1 kg (143 lb 9.6 oz) PHYSICAL EXAMINATION: General appearance: Well appearing, alert, in no acute distress, well-hydrated, well nourished. Skin: Skin color, texture, turgor normal, no suspicious rashes or lesions Head: Normocephalic, no masses, lesions, tenderness or abnormalities Lungs: CTA Heart: RRR without murmur, gallop, or rubs. No ectopy Abdomen: Normal abdominal exam, Abdomen soft, non-tender. Bowel sounds normal. No masses, organomegaly Extremities: No deformities, edema, skin discoloration, clubbing or cyanosis. Good capillary refill. Musculoskeletal: No joint swelling, deformity, or tenderness ASSESSMENT/PLAN: 1. Bronchiectasis without complication (HCC) - ICD9: 494.0, ICD10: J47.9 (primary diagnosis) Per pulmonary 2. Essential hypertension, benign - ICD9: 401.1, ICD10: I10 - Controlled - Continue current medications - Recommend regular aerobic exercise - CBC + DIFF - BASIC METABOLIC PNL 3. Acquired hypothyroidism - ICD9: 244.9, ICD10: E03.9 - stable. - TSH BLD 4. Personal history of skin cancer - ICD9: V10.83, ICD10: Z85.828 - per derm. 5. Fatigue, unspecified type - ICD9: 780.79, ICD10: R53.83 - check labs. 6. Stage 3 chronic kidney disease, unspecified whether stage 3a or 3b CKD (HCC) - ICD9: 585.3, ICD10: N18.30 - follow labs - PHOSPHORUS INORGANIC - PTH INTACT BLD Herminio Whitman MD RTO in six months or prn documented in this encounter [facility] 10-17-2023 History of Present illness Narrative [facility] [address] [facility] [address] [facility] [id number] Subjective: Jayashree Ferguson is a 83 y.o. female seen in the office today for Establish Care (ABN EKG/ PT DTR CALLED TO SCHEDULE AND REQUEST NHK/MED RECS mg) HPI: Jayashree Ferguson is a very pleasant 83 y.o. year old female who presents for a cardiology consultation who has symptoms of exertional dyspnea which has been going on for the last 2 years at that time testing was done in [facility] and they told her everything cardiac marshall seem normal. She has a history of bronchiectasis and on therapy unfortunately the last 2 years her symptoms have worsened. With very minimal exertion now she will get out of breath. Her pulm exam was not that remarkable listening to her and her cardiac exam was unremarkable as well. Her EKG was normal. I plan on arranging for a stress nuclear test to be done using a modified Faheem protocol to see what her endurance level is as well as to confirm whether they are is an ischemic etiology for her symptoms. She does have a family history of heart disease as well as a history of hypertension and hyperlipidemia therefore she does have significant risk factors. I will keep you informed with regard to the results. Thank you very much. Physical Examination: BP (!) 141/82 (BP Location: Left arm, Patient Position: Sitting, BP Cuff Size: Adult) Pulse 64 Ht 5' Wt 66.2 kg (146 lb) BMI 28.51 kg/m Physical Exam Vitals and nursing note reviewed. Cardiovascular: Rate and Rhythm: Normal rate and regular rhythm. No extrasystoles are present. Pulses: Carotid pulses are 2+ on the right side and 2+ on the left side. Radial pulses are 2+ on the right side and 2+ on the left side. Posterior tibial pulses are 2+ on the right side and 2+ on the left side. Heart sounds: Normal heart sounds. No murmur heard. Pulmonary: Effort: Pulmonary effort is normal. Breath sounds: Normal breath sounds and air entry. I agree with the Review of Systems done during the patient visit by the MA. EKG: normal EKG, normal sinus rhythm, unchanged from previous tracings. Assessment & Plan: No problem-specific Assessment & Plan notes found for this encounter. Histories: Past Medical History: Diagnosis Date Anxiety Arthritis Back pain Bladder problem freq / leakage Cancer (HCC) melanoma Cataract removed Complication of anesthesia Depression Disease of thyroid gland History of echocardiogram History of stress test Hyperlipidemia Hypertension Hypothyroidism Irritable bowel syndrome Lumbar foraminal stenosis Osteoporosis PONV (postoperative nausea and vomiting) SOB (shortness of breath) Past Surgical History: Procedure Laterality Date ARTHROPLASTY KNEE TOTAL Right 11/30/2017 Procedure: RIGHT TOTAL KNEE ARTHROPLASTY ; Surgeon: Rony Guerrero MD; Location: [facility] Main OR; Service: Orthopedic BACK SURGERY COLONOSCOPY JOINT REPLACEMENT lymphectomy POSTERIOR LUMBAR INTERBODY FUSION SINGLE LEVEL N/A 12/07/2019 Procedure: LUMBAR FIVE-SACRAL ONE FACETECTOMY AND FUSION, REPLACE HARDWARE; Surgeon: Mariana Murillo MD; Location: [facility] NEURO OR; Service: Neurological SKIN GRAFT SPINAL FUSION TONSILLECTOMY Family History Problem Relation Age of Onset Heart disease Mother Stroke Mother Brain cancer Father Social History Tobacco Use Smoking status: Former Packs/day: 1.00 Years: 4.00 Additional pack years: 0.00 Total pack years: 4.00 Types: Cigarettes Passive exposure: Past Smokeless tobacco: Never Tobacco comments: in college Vaping Use Vaping Use: Never used Substance Use Topics Alcohol use: Yes Alcohol/week: 3.0 standard drinks of alcohol Types: 3 Glasses of wine per week Comment: one or more times a week Drug use: Never Patient's Medications New Prescriptions No medications on file Previous Medications ALBUTEROL (PROVENTIL) 2.5 MG /3 ML (0.083 %) NEBULIZER SOLUTION Do one breathing treatment at least twice daily. Do one breathing treatment every 4 hours as needed for cough or shortness of breath. Give 60 vials, 11 refills. ICD 10 is J47.9 . ATORVASTATIN (LIPITOR) 10 MG TABLET Take 1 (one) tablet (10 mg total) by mouth nightly . CHOLECALCIFEROL, VITAMIN D3, 2,000 UNIT CAP Take 1 (one) capsule by mouth every evening . DILTIAZEM (TIAZAC) 120 MG 24 HR CAPSULE Take 1 (one) capsule (120 mg total) by mouth 2 (two) times a day . FLUTICASONE PROPIONATE (FLONASE) 50 MCG/ACTUATION NASAL SPRAY Instill 2 (two) sprays into each nostril daily . INHALATIONAL SPACING DEVICE INHALER Use as instructed . LABETALOL (NORMODYNE) 100 MG TABLET Take 1 (one) tablet (100 mg total) by mouth every morning . LEVOTHYROXINE (SYNTHROID, LEVOTHROID) 75 MCG TABLET Take 1 (one) tablet (75 mcg total) by mouth 5 (five) times a week Tuesday through Tuesday . LEVOTHYROXINE (SYNTHROID, LEVOTHROID) 75 MCG TABLET Take 0.5 (one-half) tablet (37.5 mcg total) by mouth twice weekly on Tuesday and Tuesday . LOSARTAN (COZAAR) 100 MG TABLET Take 1 (one) tablet (100 mg total) by mouth every morning . MUCUS CLEARING DEVICE MISC by Miscellaneous route Order sent to [facility] 01/25/22 . SERTRALINE (ZOLOFT) 25 MG TABLET Take 1 (one) tablet (25 mg total) by mouth daily . SYMBICORT 80-4.5 MCG/ACTUATION INHALER Inhale 2 (two) puffs 2 (two) times a day Use with spacer. Rinse, gargle, spit with water after each use. . THERAPEUTIC MULTIVITAMIN (THERAGRAN) TABLET Take 1 (one) tablet by mouth every evening . Modified Medications No medications on file Discontinued Medications ADULT TUSSIN CHEST CONGESTION 100 MG/5 ML SYRUP TAKE 10 ML BY MOUTH EVERY 6 HOURS NEEDED FOR COUGH AZITHROMYCIN (ZITHROMAX) 250 MG TABLET 2 tabs on day #1. Then, 1 tab orally daily for days #2 - #5 . SERTRALINE (ZOLOFT) 50 MG TABLET Take 1 (one) tablet (50 mg total) by mouth every morning . TRAMADOL (ULTRAM) 50 MG TABLET Take 1 (one) tablet (50 mg total) by mouth every 6 (six) hours as needed for pain (Days supply per fill: 5) . Allergies Allergen Reactions Sulfa (Sulfonamide Antibiotics) Anaphylaxis Penicillins Swelling and Rash This happened when she was 12 yo Cipro [Ciprofloxacin Hcl] Other (See Comments) Tendon rupture (right foot ant tibialis) Opioids - Morphine Analogues GI Intolerance vomitting Stomach spasms. Side. Not an allergy Overview of Problems Addressed: Problem Sob (Shortness of Breath) Objective: Orders Placed This Encounter NM Myocardial Perfusion Multiple SPECT sertraline (ZOLOFT) 25 MG tablet Follow Up Ordered: Return if symptoms worsen or fail to improve. Jim Renteria MD documented in this encounter [facility] 10-17-2023 Instructions Nhung Lindsey RN - 10/17/2023 1:08 PM EST EXERCISE NUCLEAR STRESS TEST What is it? The Exercise Nuclear Stress Test is a diagnostic exam used to determine if the heart muscle is getting the blood supply it needs. Preparation / Instructions: 1. Do not eat or drink anything after midnight the night prior to your test. 2. Do not smoke the morning of the test. 3. Insulin-dependent diabetics may take of your usual morning dose of insulin with juice and toast or a bagel. 4. Unless otherwise directed by your physician, do not take any of your medications the evening before or morning of your test. (Note* Xanthene derivates, such as Theophylline, Melo-dur, or Melo-24, and Persantine (dipyridamole) must be held for 3 days prior to your test) 5. Bring your morning medications and an accurate medication list. 6. Wear comfortable clothes and comfortable shoes. A sweater is suggested for the waiting room. 7. No caffeine, decaf, or caffeine products, such as chocolate, can be take for 24 hours prior to having your test. If you are taking [id number] medications, such as cold tablets or pain relievers, make sure that caffeine is not an ingredient. Your test will be cancelled if you have consumed any caffeine. 8. Bring a snack. You will be asked to eat after the stress portion of the test. 9. This test involves a lot of waiting. You may want to bring a book, paper, magazine, etc. What to expect We will obtain a brief history emphasizing current symptoms and pertinent family history. A small intravenous (IV) line is inserted into your arm and electrodes are attached to your chest. The first dose of imaging agent is injected through the IV. Resting images are obtained at least 60 minutes later with the nuclear imaging camera. A stress test is performed on a treadmill with an EKG monitored by a physician. A second dose of imaging agent is injected in the IV, followed by a second set of images under the nuclear camera 20 minutes after the infusion. This test takes about 4-6 hours. If you have any questions, please do not hesitate to call me at [phone]. Nhung Lindsey, RN, BSN Nurse Loan Closer for Dr. Senia Renteria [facility] [address] [place] [address] [address] [place] [address] documented in this encounter [facility] 10-10-2023 Instructions Herminio Whitman MD - 10/10/2023 2:56 PM EST Can try voltaren gel over the counter. documented in this encounter [facility] 10-10-2023 History of Present illness Narrative Patient presents with: 6 Month Exam HPI: Patient presents today for office visit for follow up. HLD: Continues on Atorvastatin No myalgias PULM: Using Symbicort and albuterol neb Continues with shortness of breath with minimal exertion. Refers to when walking up stairs or when she gets out of bed in the middle of the night to urinate. Refers to gasping for air. Sees pulmonary. Has been worked up by cardiology for the same in the past. Had stress and echo etc. She would like another cardiac eval. Is really not new but getting worse. HTN: Does not monitor BP Stable Denies chest pain Denies dizziness Often wakes up with a headache No edema No palpitations No syncope Still getting infusions every 4 weeks. MEDICATIONS: Current Outpatient Medications Medication Sig atorvastatin (LIPITOR) 10 mg tablet Take 1 tablet by mouth once daily. losartan (COZAAR) 100 mg tablet Take 1 tablet by mouth once daily. labetalol (TRANDATE) 100 mg tablet Take 1 tablet by mouth once daily. dilTIAZem CD (CARDIZEM CD, CARTIA XT) 120 mg 24 hr capsule Take 1 capsule by mouth twice daily. sertraline (ZOLOFT) 25 mg tablet Take 1 tablet by mouth daily at bedtime. SYMBICORT 80-4.5 mcg/actuation inhaler levothyroxine (SYNTHROID) 75 mcg tablet Take 1 tablet by mouth once daily. Except 2 days a week take half a tablet. Take on empty stomach. For Thyroid Cholecalciferol, Vitamin D3, 50 mcg (2,000 unit) cap Take 1 capsule by mouth. albuterol (PROVENTIL) 2.5 mg /3 mL (0.083 %) nebulizer solution Use 3 mL via nebulizer once daily. immun glob G,IgG,/gly/IgA ov50 (GAMMAGARD LIQUID INJECTION) by INJECTION(UNSPECIFIED PARENTERAL ROUTES) route. Infusion every 4 wks acetaminophen (TYLENOL) 500 mg tablet Take 1,000 mg by mouth three times daily as needed. No current facility-administered medications for this visit. ALLERGIES: ALLERGIES Allergen Reactions Erythromycin Vomiting Opioids - Morphine * GI Upset Vomiting. Stomach spasms. Opioids [Other] Vomiting All of them cause severe nausea and vomiting that can last 24 hours Ciprofloxacin Contraindication-Medical Surgical Tendon rupture with Cipro Levaquin [Levofloxa* Contraindication-Medical Surgical Tendon rupture Penicillin G Other: See Comments Childhood dose. Rash elbows and knees, swelling Sulpha Drugs [Other] Anaphylaxis Tetracycline Vomiting Tramadol Vomiting PAST MEDICAL HISTORY Diagnosis Date BCC (basal cell carcinoma) 08/26/09 face Essential hypertension, benign Foraminal stenosis of lumbar region 1997 MRI History of lumbosacral spine surgery 12/07/2019 1. L5-S1 posterolateral arthrodesis. 2. L5-S1 laminectomy, medial facetectomy, bilateral foraminotomy. 3. 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 Social History Tobacco Use Smoking status: Former Packs/day: 1.00 Years: 10.00 Additional pack years: 0.00 Total pack years: 10.00 Types: Cigarettes Quit date: 10/27/1993 Years since quittin.9 Smokeless tobacco: Never Tobacco comments: ETS: Father in childhood home, at patient age 5. No ETS in adult homes. Substance Use Topics Alcohol use: Yes Comment: 3-4 times a week (a glass of wine with dinner) Drug use: No Reviewed current medications, allergies, past medical history, surgical history, family history and social history today. REVIEW OF SYSTEMS All other reviewed and negative other than HPI. HEALTH MAINTENANCE: Reviewed health maintenance issues today and recommended the following in detail. RSV Vaccine(1 - 1-dose 60+ series) Never done Influenza Vaccine(1) due on 07/29/2023 Covid-19 Vaccine(2022- season) due on 07/29/2023 VITALS: BP 132/86 Pulse 68 Ht 152.4 cm (5') Wt 67.1 kg (148 lb) SpO2 95% BMI 28.90 kg/m Last 4 Encounter Wt Readings: Date: Wt: 06/16/2023 66.5 kg (146 lb 9.6 oz) 06/11/2023 66.7 kg (147 lb) 05/05/2023 65.1 kg (143 lb 9.6 oz) 03/30/2023 65.6 kg (144 lb 9.6 oz) PHYSICAL EXAMINATION: General appearance: Well appearing, alert, in no acute distress, well-hydrated, well nourished. Skin: Skin color, texture, turgor normal, no suspicious rashes or lesions Head: Normocephalic, no masses, lesions, tenderness or abnormalities Neck: Supple, no adenopathy; thyroid symmetric, normal size, no bruits Back: Normal exam Lungs: Lungs clear to auscultation. No wheezing, rhonchi, rales Heart: RRR without murmur, gallop, or rubs. No ectopy Abdomen: Normal abdominal exam, Abdomen soft, non-tender. Bowel sounds normal. No masses, organomegaly Extremities: No deformities, edema, skin discoloration, clubbing or cyanosis. Good capillary refill. Musculoskeletal: No joint swelling, deformity, or tenderness ASSESSMENT/PLAN: 1. Bronchiectasis without complication (HCC) - ICD9: 494.0, ICD10: J47.9 (primary diagnosis) - per pulmonary. Not sure how much is being contributed by it. 2. Essential hypertension, benign - ICD9: 401.1, ICD10: I10 - Controlled - Continue current medications - COMP METABOLIC PANEL - LIPID PANEL BASIC 3. Hypertensive chronic kidney disease with stage 1 through stage 4 chronic kidney disease, or unspecified chronic kidney disease - ICD9: 403.90, ICD10: I12.9 - Controlled - stable. 4. Lung nodules - ICD9: 793.19, ICD10: R91.8 - stable. 5. Stage 3 chronic kidney disease, unspecified whether stage 3a or 3b CKD (HCC) - ICD9: 585.3, ICD10: N18.30 - will follow. 6. Acquired hypothyroidism - ICD9: 244.9, ICD10: E03.9 - TSH BLD 7. SOB (shortness of breath) - ICD9: 786.05, ICD10: R06.02 - follow labs. Check ekg and see pulmonary and cardiology. - ECG COMPLETE- NSR.no acute changes. - CBC + DIFF - NT PRO BNP - CONSULT TO CARDIOLOGY Herminio Whitman MD documented in this encounter [facility] 09-16-2023 Miscellaneous Notes Patient has been identified by name and date of : Yes Patient phones for refill(s): Requested Prescriptions Pending Prescriptions Disp Refills atorvastatin (LIPITOR) 10 mg tablet 90 tablet 3 Sig: Take 1 tablet by mouth once daily. Date of last office visit in primary care: 06/16/23 Date of next office visit in primary care: 10/10/23 Last 2 Encounter Wt Readings: Date: Wt: 06/16/2023 66.5 kg (146 lb 9.6 oz) 06/11/2023 66.7 kg (147 lb) Please advise. Thank you. GERRY Rebolledo. documented in this encounter [facility] 08-29-2023 Miscellaneous Notes Patient phones requesting refills as follows: Requested Prescriptions Pending Prescriptions Disp Refills losartan (COZAAR) 100 mg tablet 90 tablet 3 Sig: Take 1 tablet by mouth once daily. labetalol (TRANDATE) 100 mg tablet 90 tablet 3 Sig: Take 1 tablet by mouth once daily. MONET 06/16/23 NOV 10/10/23 Please review and advise. Vidal Larios LPN documented in this encounter [facility] 08-02-2023 Miscellaneous Notes Last office visit: 06/16/23 Next appointment scheduled: 10/10/23 Last labs: 02/21/23 Patient phones requesting refills as follows: Requested Prescriptions Pending Prescriptions Disp Refills dilTIAZem CD (CARDIZEM CD, CARTIA XT) 120 mg 24 hr capsule 180 capsule 3 Sig: Take 1 capsule by mouth twice daily. Adri Grimaldo LPN documented in this encounter [facility] 08-02-2023 Instructions Karen Goncalves MD - 08/02/2023 10:25 AM EDT I have referred you to pulmonary rehab at [facility]. Talk to the allergy clinic about seeing Sallie Tenorio M.D. or Antonia Chambers M.D. Continue Symbicort 2 puffs once daily. Try to take 1-2 puffs in the evening. documented in this encounter [facility] 08-02-2023 History of Present illness Narrative Assessment/Plan: Diagnoses and all orders for this visit: Bronchiectasis without complication (HCC) - Ambulatory referral to Pulmonary Rehab; Future Persistent asthma without complication, unspecified asthma severity - Ambulatory referral to Pulmonary Rehab; Future MORAN (dyspnea on exertion) She will continue Symbicort. She will try to take the evening dose. Continue other meds. Spoke with her and her daughter about pulmonary rehabilitation. Indications reviewed. She has a treadmill at home but cannot use this bc of back pain. She wishes to try pulmonary rehab. Referral placed and [facility] to [facility], [place]. Discussed her IvIG. She will follow up with allergy/ immunology for her IVIG (will call if she needs another referral to another doctor or another group) Follow up in 3 months. 40 minutes was spent with the patient. More than half that time was spent face to face, counseling and discussing plan of care / addressing questions/ concerns documented above HISTORY Jayashree Ferguson is a 83 y.o. 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 She is here today with her daughter. Dec 2021 labs revealed low IgG, IgM, and Ig A levels. I did refer her to Dr Langford. Labs for CTD (in 2020 and 2021) were negative. January 2022 PFT - mild restriction January 2022 methacholine - negative (FEV1 dropped 17%) January [address] - mild lower lobe bronchiectasis and some plugging. Exacerbations: April 2023 Treatment: Acapella. She started immunoglobulin infusions in February 2022.. Albutero nebs BID (and every 4 hours prn). Symbicort 160 mcg HFA (2 puffs BID). No exacerbations since last seen. She does have some chronic cough. Mild during the day. It can wake her from sleep a few times weekly. She takes Symbicort 2 puffs each morning. She does not take the evening dose as she could hear her heart bear loudle when she did. No sore throat. No fever. No SOB at rest. Some MORAN with exertion. Stamina I poor. Cannot walk well bc of back pain. No fever. No weight loss. She has gained some weight. No hemoptysis. No sweats. Current Outpatient Medications: albuterol (PROVENTIL) 2.5 mg /3 mL (0.083 %) nebulizer solution, Do one breathing treatment at least twice daily. Do one breathing treatment every 4 hours as needed for cough or shortness of breath. Give 60 vials, 11 refills. ICD 10 is J47.9 ., Disp: 180 mL, Rfl: 11 atorvastatin (LIPITOR) 10 MG tablet, Take 1 (one) tablet (10 mg total) by mouth nightly ., Disp: , Rfl: azithromycin (ZITHROMAX) 250 MG tablet, 2 tabs on day #1. Then, 1 tab orally daily for days #2 - #5 ., Disp: 19.29 tablet, Rfl: 0 cholecalciferol, vitamin D3, 2,000 unit cap, Take 1 (one) capsule by mouth every evening ., Disp: , Rfl: diltiazem (TIAZAC) 120 MG 24 hr capsule, Take 1 (one) capsule (120 mg total) by mouth 2 (two) times a day ., Disp: , Rfl: fluticasone propionate (FLONASE) 50 mcg/actuation nasal spray, Instill 2 (two) sprays into each nostril daily ., Disp: 16 g, Rfl: 11 inhalational spacing device inhaler, Use as instructed ., Disp: 1 each, Rfl: 2 labetalol (NORMODYNE) 100 MG tablet, Take 1 (one) tablet (100 mg total) by mouth every morning ., Disp: , Rfl: levothyroxine (SYNTHROID, LEVOTHROID) 75 MCG tablet, Take 1 (one) tablet (75 mcg total) by mouth 5 (five) times a week Tuesday through Tuesday ., Disp: , Rfl: levothyroxine (SYNTHROID, LEVOTHROID) 75 MCG tablet, Take 0.5 (one-half) tablet (37.5 mcg total) by mouth twice weekly on Tuesday and Tuesday ., Disp: , Rfl: losartan (COZAAR) 100 MG tablet, Take 1 (one) tablet (100 mg total) by mouth every morning ., Disp: , Rfl: MUCUS CLEARING DEVICE [place], by Miscellaneous route Order sent to [facility] 01/25/22 ., Disp: , Rfl: sertraline (ZOLOFT) 50 MG tablet, Take 1 (one) tablet (50 mg total) by mouth every morning ., Disp: , Rfl: Symbicort 80-4.5 mcg/actuation inhaler, Inhale 2 (two) puffs 2 (two) times a day Use with spacer. Rinse, gargle, spit with water after each use. ., Disp: 30.6 g, Rfl: 3 therapeutic multivitamin (THERAGRAN) tablet, Take 1 (one) tablet by mouth every evening ., Disp: , Rfl: Adult Tussin Chest Congestion 100 mg/5 mL syrup, TAKE 10 ML BY MOUTH EVERY 6 HOURS NEEDED FOR COUGH, Disp: , Rfl: traMADol (ULTRAM) 50 mg tablet, Take 1 (one) tablet (50 mg total) by mouth every 6 (six) hours as needed for pain (Days supply per fill: 5) . (Patient not taking: Reported on 08/02/2023 .), Disp: 15 tablet, Rfl: 0 Allergies as of 08/02/2023 - Reviewed 08/02/2023 Allergen Reaction Noted Sulfa (sulfonamide antibiotics) Anaphylaxis 11/25/2017 Penicillins Swelling and Rash 11/25/2017 Cipro [ciprofloxacin hcl] Other (See Comments) 01/25/2022 Opioids - morphine analogues GI Intolerance 11/25/2017 Immunization History Administered Date(s) Administered Moderna Bivalent Booster:6-11 YRS 0.25mL; 12+YRS 0.5mL 11/08/2022 Moderna SARS-CoV-2 Vaccination 12/26/2020, 01/23/2021, 10/29/2021 Past Medical History: Diagnosis Date Anxiety Arthritis Back pain Bladder problem freq / leakage Cancer (HCC) melanoma Cataract removed Complication of anesthesia Depression Disease of thyroid gland History of echocardiogram History of stress test Hyperlipidemia Hypertension Hypothyroidism Irritable bowel syndrome Lumbar foraminal stenosis Osteoporosis PONV (postoperative nausea and vomiting) SOB (shortness of breath) Past Surgical History: Procedure Laterality Date ARTHROPLASTY KNEE TOTAL Right 11/30/2017 Procedure: RIGHT TOTAL KNEE ARTHROPLASTY ; Surgeon: Rony Guerrero MD; Location: [facility] Main OR; Service: Orthopedic BACK SURGERY COLONOSCOPY JOINT REPLACEMENT lymphectomy POSTERIOR LUMBAR INTERBODY FUSION SINGLE LEVEL N/A 12/07/2019 Procedure: LUMBAR FIVE-SACRAL ONE FACETECTOMY AND FUSION, REPLACE HARDWARE; Surgeon: Mariana Murillo MD; Location: [facility] NEURO OR; Service: Neurological SKIN GRAFT SPINAL FUSION TONSILLECTOMY Family History Problem Relation Age of Onset Heart disease Mother Stroke Mother Brain cancer Father Social History Socioeconomic History Marital status: Tobacco Use Smoking status: Former Packs/day: 1.00 Years: 4.00 Additional pack years: 0.00 Total pack years: 4.00 Types: Cigarettes Passive exposure: Past Smokeless tobacco: Never Tobacco comments: in college Vaping Use Vaping Use: Never used Substance and Sexual Activity Alcohol use: Yes Alcohol/week: 3.0 standard drinks of alcohol Types: 3 Glasses of wine per week Comment: one or more times a week Drug use: Never Sexual activity: Not Currently Vitals: 08/02/23 0946 BP: 136/88 BP Location: Left arm Patient Position: Sitting BP Cuff Size: Adult Pulse: 71 Resp: 12 Temp: 98 F (36.7 C) TempSrc: Infrared SpO2: 95% Weight: 64.4 kg (142 lb) Height: 5' EXAM: Gerneral: alert, oriented x 3, NAD. 142 lbs today (same as May 2023. Symbicort was started in May). 139 lbs today in Sep 2022 Eyes: clear conjunctiva ENT: Not hoarse. CVS: RRR, no MGR, no JVD or edema Pulm: Clear. No wheezing, crackles, no dullness. Not labored. No cyanosis or clubbing. Breath sounds and chest wall movement are normal. Psych: alert, appropriate. Pleasant documented in this encounter [facility] 06-24-2023 Miscellaneous Notes Patient states that her Sertraline 25 mg Rx was cancelled at the pharmacy so she has not restarted. Asking for new order to be sent. Order pended. Please advise. documented in this encounter [facility] 06-16-2023 History of Present illness Narrative Patient presents with: ER F/U HPI: Patient presents today for office visit for ER follow up. Seen in [facility] ER on 06/11/23. After IVIG infusion had redness and swelling to left forearm. US showed no evidence of DVT Some bruising today but swelling is reduced. Covered with a dose of lovenox until duplex could be done the next am. He thought it was likely a phlebitis. Was red but that is better. No swelling No warmth currently. Overall is much better. No fever or chills. Minimal tenderness. MEDICATIONS: Current Outpatient Medications Medication Sig SYMBICORT 80-4.5 mcg/actuation inhaler sertraline (ZOLOFT) 50 mg tablet Take 1 tablet by mouth once daily. doxycycline monohydrate 100 mg tablet Take 1 tablet by mouth twice daily for 7 days. labetalol (TRANDATE) 100 mg tablet Take 1 tablet by mouth once daily. levothyroxine (SYNTHROID) 75 mcg tablet Take 1 tablet by mouth once daily. Except 2 days a week take half a tablet. Take on empty stomach. For Thyroid Cholecalciferol, Vitamin D3, 50 mcg (2,000 unit) cap Take 1 capsule by mouth. losartan (COZAAR) 100 mg tablet Take 1 tablet by mouth once daily. albuterol (PROVENTIL) 2.5 mg /3 mL (0.083 %) nebulizer solution Use 3 mL via nebulizer once daily. immun glob G,IgG,/gly/IgA ov50 (GAMMAGARD LIQUID INJECTION) by INJECTION(UNSPECIFIED PARENTERAL ROUTES) route. Infusion every 4 wks dilTIAZem CD (CARDIZEM CD, CARTIA XT) 120 mg 24 hr capsule Take 1 capsule by mouth twice daily. atorvastatin (LIPITOR) 10 mg tablet Take 1 tablet by mouth once daily. acetaminophen (TYLENOL) 500 mg tablet Take 1,000 mg by mouth three times daily as needed. No current facility-administered medications for this visit. ALLERGIES: ALLERGIES Allergen Reactions Erythromycin Vomiting Opioids - Morphine * GI Upset Vomiting. Stomach spasms. Opioids [Other] Vomiting All of them cause severe nausea and vomiting that can last 24 hours Ciprofloxacin Contraindication-Medical Surgical Tendon rupture with Cipro Levaquin [Levofloxa* Contraindication-Medical Surgical Tendon rupture Penicillin G Other: See Comments Childhood dose. Rash elbows and knees, swelling Sulpha Drugs [Other] Anaphylaxis Tetracycline Vomiting Tramadol Vomiting PAST MEDICAL HISTORY Diagnosis Date BCC (basal cell carcinoma) 08/26/09 face Essential hypertension, benign Foraminal stenosis of lumbar region 1997 MRI History of lumbosacral spine surgery 12/07/2019 1. L5-S1 posterolateral arthrodesis. 2. L5-S1 laminectomy, medial facetectomy, bilateral foraminotomy. 3. 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 Social History Tobacco Use Smoking status: Former Packs/day: 1.00 Years: 10.00 Total pack years: 10.00 Types: Cigarettes Quit date: 10/27/1993 Years since quittin.6 Smokeless tobacco: Never Tobacco comments: ETS: Father in childhood home, at patient age 5. No ETS in adult homes. Substance Use Topics Alcohol use: Yes Comment: 3-4 times a week (a glass of wine with dinner) Drug use: No Reviewed current medications, allergies, past medical history, surgical history, family history and social history today. REVIEW OF SYSTEMS All other reviewed and negative other than HPI. VITALS: BP 110/68 Pulse 68 Ht 152.4 cm (5') Wt 66.5 kg (146 lb 9.6 oz) SpO2 96% BMI 28.63 kg/m Last 4 Encounter Wt Readings: Date: Wt: 06/11/2023 66.7 kg (147 lb) 05/05/2023 65.1 kg (143 lb 9.6 oz) 03/30/2023 65.6 kg (144 lb 9.6 oz) 02/21/2023 65 kg (143 lb 3.2 oz) PHYSICAL EXAMINATION: General appearance: Well appearing, alert, in no acute distress, well-hydrated, well nourished. Skin: Skin color, texture, turgor normal, no suspicious rashes or lesions Extremities: no redness or warmth. Has mild bruising along the length of her vein. No redness or warmth. No swelling. Normal range of motion. ASSESSMENT/PLAN: 1. Phlebitis - ICD9: 451.9, ICD10: I80.9 Seems to be better. Red flags for re-assessment reviewed with patient in detail. She will call her prescribing physician to let them know. Herminio Whitman MD documented in this encounter [facility] 06-11-2023 History of Present illness Narrative Images from the original note were not included. Subjective HPI HPI Jayashree Ferguson is a 83 year old female who presents today for CC of redness/warmth at infusion site. This started today, infusion 1 day ago. Denies fever. .Patient presents with: Infection: Redness, swollen left arm, infusion done yesterday PAST MEDICAL HISTORY Diagnosis Date BCC (basal cell carcinoma) 08/26/09 face Essential hypertension, benign Foraminal stenosis of lumbar region 1997 MRI History of lumbosacral spine surgery 12/07/2019 1. L5-S1 posterolateral arthrodesis. 2. L5-S1 laminectomy, medial facetectomy, bilateral foraminotomy. 3. 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 1997 Unspecified hypothyroidism Hypothyroidism PAST SURGICAL HISTORY Procedure Laterality Date ANESTHESIA EYELID RECONSTRUCTIVE PROCEDURE ARTHROSCOPY KNEE DIAGNOSTIC W/WO SYNOVIAL BX SPX Right Arthroscopy, knee LAMINECTOMY W/O FFD / VERT SEG LUMBAR 2001 Laminectomy, lumbar fusion x2 SKIN BX, 1 LESION Melanoma ressection TOTAL KNEE REPLACEMENT Right Orthopeadic One [place] ALLERGIES Erythromycin, Opioids - Morphine Analogues, Opioids [Other], Ciprofloxacin, Levaquin [Levofloxacin], Penicillin G, Sulpha Drugs [Other], Tetracycline, and Tramadol MEDICATIONS labetalol (TRANDATE) 100 mg tablet Take 1 tablet by mouth once daily. levothyroxine (SYNTHROID) 75 mcg tablet Take 1 tablet by mouth once daily. Except 2 days a week take half a tablet. Take on empty stomach. For Thyroid Cholecalciferol, Vitamin D3, 50 mcg (2,000 unit) cap Take 1 capsule by mouth. losartan (COZAAR) 100 mg tablet Take 1 tablet by mouth once daily. albuterol (PROVENTIL) 2.5 mg /3 mL (0.083 %) nebulizer solution Use 3 mL via nebulizer once daily. immun glob G,IgG,/gly/IgA ov50 (GAMMAGARD LIQUID INJECTION) by INJECTION(UNSPECIFIED PARENTERAL ROUTES) route. Infusion every 4 wks dilTIAZem CD (CARDIZEM CD, CARTIA XT) 120 mg 24 hr capsule Take 1 capsule by mouth twice daily. atorvastatin (LIPITOR) 10 mg tablet Take 1 tablet by mouth once daily. acetaminophen (TYLENOL) 500 mg tablet Take 1,000 mg by mouth three times daily as needed. doxycycline monohydrate 100 mg tablet Take 1 tablet by mouth twice daily for 7 days. FAMILY HISTORY Problem Relation Age of Onset Hypertension Mother Heart Mother Stroke Mother Cancer Father brain No Known Problems Brother Rheumatologic disease Daughter Rh arthritis. Social History Tobacco Use Smoking status: Former Packs/day: 1.00 Years: 10.00 Total pack years: 10.00 Types: Cigarettes Quit date: 10/27/1993 Years since quittin.6 Smokeless tobacco: Never Tobacco comments: ETS: Father in childhood home, at patient age 5. No ETS in adult homes. Substance Use Topics Alcohol use: Yes Comment: 3-4 times a week (a glass of wine with dinner) Drug use: No ROS Objective Blood pressure 132/78, pulse 69, temperature 37.3 C (99.2 F), resp. rate 16, weight 66.7 kg (147 lb), SpO2 97 %. Physical Exam Constitutional: General: She is not in acute distress. Appearance: She is not toxic-appearing or diaphoretic. HENT: Head: Normocephalic and atraumatic. Cardiovascular: Pulses: Radial pulses are 2+ on the left side. Pulmonary: Effort: Pulmonary effort is normal. No accessory muscle usage or respiratory distress. Skin: Neurological: Mental Status: She is alert and oriented to person, place, and time. ASSESSMENT/PLAN: 1. Skin infection - ICD9: 686.9, ICD10: L08.9 - Begin treatment with doxy - Follow up for recheck in three days if not improving, urgent f/u for worsening s/s. - DOXYCYCLINE MONOHYDRATE 100 MG TABLET Josh Serrano APRN.LESLEY documented in this encounter [facility] 06-06-2023 Miscellaneous Notes Patient has been identified by name and date of : Yes Requested Prescriptions Pending Prescriptions Disp Refills labetalol (TRANDATE) 100 mg tablet 90 tablet 3 Sig: Take 1 tablet by mouth once daily. RX INSTRUCTIONS: Patient aware RX will be sent to pharmacy. No need to notify patient. Patient last office visit: 03/30/23 Patient next office visit: 10/10/23 Marlen Krishnan MA documented in this encounter [facility] 06-01-2023 History of Present illness Narrative Assessment/Plan: Diagnoses and all orders for this visit: Bronchiectasis without complication (HCC) - Symbicort 80-4.5 mcg/actuation inhaler; Inhale 2 (two) puffs 2 (two) times a day Use with spacer. Rinse, gargle, spit with water after each use. . - azithromycin (ZITHROMAX) 250 MG tablet; 2 tabs on day #1. Then, 1 tab orally daily for days #2 - #5 . - methylPREDNISolone (MEDROL DOSEPACK) 4 mg tablet; Follow package directions . MORAN (dyspnea on exertion) Immunoglobulin deficiency (HCC) Another recent flare up. Not much cough now. Compliant with treatment. Clear on exam. Her CXR from the end of April 2023 per the report showed no new acute issues. Continue acapella and nebs. I will have her try Symbicort to see if this prevents flare ups, controls her cough and/ or helps with her MORAN. If no response after a good 6 months, will DC. Follow up in a few months Clinical decision making was based on my interview with the patient, her , and review of all outside records ([facility] via [facility]) HISTORY Jayashree Ferguson is a 83 y.o. 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 She is here today with her daughter. Dec 2021 labs revealed low IgG, IgM, and Ig A levels. I did refer her to Dr Langford. Labs for CTD (in 2020 and 2021) were negative. January 2022 PFT - mild restriction January 2022 methacholine - negative (FEV1 dropped 17%) January [address] - mild lower lobe bronchiectasis and some plugging. Treatment: Acapella. She started immunoglobulin infusions in February 2022.She has a nebulizer and prn albuterol. Will change this to BID dosing and every 4hours prn today. She is here with her (her daughter is receiving an infusion today). She had a flare up in April 2023. . Symptoms included severe coughing, sputum and some SOB. She did go to and was treated with antibiotics. She cannot say that this helped. It is only in the last few weeks she has felt better. Cough is better. She is still tired. Has no stamina. No fever. No weight loss. No hemoptysis. No sweats. No nausea or diarrhea. No new pain Current Outpatient Medications: Adult Tussin Chest Congestion 100 mg/5 mL syrup, TAKE 10 ML BY MOUTH EVERY 6 HOURS NEEDED FOR COUGH, Disp: , Rfl: albuterol (PROVENTIL) 2.5 mg /3 mL (0.083 %) nebulizer solution, Do one breathing treatment at least twice daily. Do one breathing treatment every 4 hours as needed for cough or shortness of breath. Give 60 vials, 11 refills. ICD 10 is J47.9 ., Disp: 180 mL, Rfl: 11 atorvastatin (LIPITOR) 10 MG tablet, Take 1 (one) tablet (10 mg total) by mouth nightly ., Disp: , Rfl: cholecalciferol, vitamin D3, 2,000 unit cap, Take 1 (one) capsule by mouth every evening ., Disp: , Rfl: diltiazem (TIAZAC) 120 MG 24 hr capsule, Take 1 (one) capsule (120 mg total) by mouth 2 (two) times a day ., Disp: , Rfl: fluticasone propionate (FLONASE) 50 mcg/actuation nasal spray, Instill 2 (two) sprays into each nostril daily ., Disp: 16 g, Rfl: 11 labetalol (NORMODYNE) 100 MG tablet, Take 1 (one) tablet (100 mg total) by mouth every morning ., Disp: , Rfl: levothyroxine (SYNTHROID, LEVOTHROID) 75 MCG tablet, Take 1 (one) tablet (75 mcg total) by mouth 5 (five) times a week Tuesday through Tuesday ., Disp: , Rfl: levothyroxine (SYNTHROID, LEVOTHROID) 75 MCG tablet, Take 0.5 (one-half) tablet (37.5 mcg total) by mouth twice weekly on Tuesday and Tuesday ., Disp: , Rfl: losartan (COZAAR) 100 MG tablet, Take 1 (one) tablet (100 mg total) by mouth every morning ., Disp: , Rfl: MUCUS CLEARING DEVICE [place], by Miscellaneous route Order sent to [facility] 01/25/22 ., Disp: , Rfl: sertraline (ZOLOFT) 50 MG tablet, Take 1 (one) tablet (50 mg total) by mouth every morning ., Disp: , Rfl: therapeutic multivitamin (THERAGRAN) tablet, Take 1 (one) tablet by mouth every evening ., Disp: , Rfl: traMADol (ULTRAM) 50 mg tablet, Take 1 (one) tablet (50 mg total) by mouth every 6 (six) hours as needed for pain (Days supply per fill: 5) ., Disp: 15 tablet, Rfl: 0 azithromycin (ZITHROMAX) 250 MG tablet, 2 tabs on day #1. Then, 1 tab orally daily for days #2 - #5 ., Disp: 19.29 tablet, Rfl: 0 methylPREDNISolone (MEDROL DOSEPACK) 4 mg tablet, Follow package directions ., Disp: 21 tablet, Rfl: 0 Symbicort 80-4.5 mcg/actuation inhaler, Inhale 2 (two) puffs 2 (two) times a day Use with spacer. Rinse, gargle, spit with water after each use. ., Disp: 30.6 g, Rfl: 3 Allergies as of 06/01/2023 - Reviewed 06/01/2023 Allergen Reaction Noted Sulfa (sulfonamide antibiotics) Anaphylaxis 11/25/2017 Penicillins Swelling and Rash 11/25/2017 Cipro [ciprofloxacin hcl] Other (See Comments) 01/25/2022 Opioids - morphine analogues GI Intolerance 11/25/2017 Immunization History Administered Date(s) Administered Moderna Bivalent Booster:6-11 YRS 0.25mL; 12+YRS 0.5mL 11/08/2022 Past Medical History: Diagnosis Date Anxiety Arthritis Back pain Bladder problem freq / leakage Cancer (HCC) melanoma Cataract removed Complication of anesthesia Depression Disease of thyroid gland History of echocardiogram History of stress test Hyperlipidemia Hypertension Hypothyroidism Irritable bowel syndrome Lumbar foraminal stenosis Osteoporosis PONV (postoperative nausea and vomiting) SOB (shortness of breath) Past Surgical History: Procedure Laterality Date ARTHROPLASTY KNEE TOTAL Right 11/30/2017 Procedure: RIGHT TOTAL KNEE ARTHROPLASTY ; Surgeon: Rony Guerrero MD; Location: [facility] Main OR; Service: Orthopedic BACK SURGERY COLONOSCOPY JOINT REPLACEMENT lymphectomy POSTERIOR LUMBAR INTERBODY FUSION SINGLE LEVEL N/A 12/07/2019 Procedure: LUMBAR FIVE-SACRAL ONE FACETECTOMY AND FUSION, REPLACE HARDWARE; Surgeon: Mariana Murillo MD; Location: [facility] NEUR[facility] OR; Service: Neurological SKIN GRAFT SPINAL FUSION TONSILLECTOMY Family History Problem Relation Age of Onset Heart disease Mother Stroke Mother Brain cancer Father Social History Socioeconomic History Marital status: Tobacco Use Smoking status: Former Packs/day: 1.00 Years: 4.00 Total pack years: 4.00 Types: Cigarettes Smokeless tobacco: Never Tobacco comments: in college Vaping Use Vaping Use: Never used Substance and Sexual Activity Alcohol use: Yes Alcohol/week: 3.0 standard drinks of alcohol Types: 3 Glasses of wine per week Comment: one or more times a week Drug use: Never Sexual activity: Not Currently Vitals: 06/01/23 1133 BP: 129/71 BP Location: Right arm Patient Position: Sitting BP Cuff Size: Adult Pulse: 69 Resp: 12 Temp: 98.4 F (36.9 C) TempSrc: Infrared SpO2: 95% Weight: 64.4 kg (142 lb) Height: 5' EXAM: Gerneral: alert, oriented x 3, NAD. 142 lbs today. 139 lbs today in Sep 2022 Eyes: clear conjunctiva ENT: Not hoarse. CVS: RRR, no MGR, no JVD or edema Pulm: Clear. No wheezing, crackles, no dullness. Not labored. No cyanosis or clubbing. Breath sounds and chest wall movement are normal. Psych: alert, appropriate. Pleasant documented in this encounter [facility] 05-05-2023 History of Present illness Narrative Patient presents with: Cough: Pt reported throat pain, chest congestion, SOB, x3 days. HPI: Feeling increase in coughing for 3 days. History of bronchiectasis and immune deficiency. Positive symptoms: Cough (some production), Shortness of breath, bad Sore throat, Fever, Nasal Congestion, Rhinorrhea Negative symptoms: Vomiting, Diarrhea, OTC: benadryl, albuterol nebulizer, tylenol PHx of bronchitis which leads to pneumonia. PAST MEDICAL HISTORY Diagnosis Date BCC (basal cell carcinoma) 08/26/09 face Essential hypertension, benign Foraminal stenosis of lumbar region 1997 MRI History of lumbosacral spine surgery 12/07/2019 1. L5-S1 posterolateral arthrodesis. 2. L5-S1 laminectomy, medial facetectomy, bilateral foraminotomy. 3. 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 Except 2 days a week take half a tablet. Take on empty stomach. For Thyroid Cholecalciferol, Vitamin D3, 50 mcg (2,000 unit) cap Take 1 capsule by mouth. losartan (COZAAR) 100 mg tablet Take 1 tablet by mouth once daily. albuterol (PROVENTIL) 2.5 mg /3 mL (0.083 %) nebulizer solution Use 3 mL via nebulizer once daily. immun glob G,IgG,/gly/IgA ov50 (GAMMAGARD LIQUID INJECTION) by INJECTION(UNSPECIFIED PARENTERAL ROUTES) route. Infusion every 4 wks dilTIAZem CD (CARDIZEM CD, CARTIA XT) 120 mg 24 hr capsule Take 1 capsule by mouth twice daily. atorvastatin (LIPITOR) 10 mg tablet Take 1 tablet by mouth once daily. labetalol (TRANDATE) 100 mg tablet Take 1 tablet by mouth once daily. acetaminophen (TYLENOL) 500 mg tablet Take 1,000 mg by mouth three times daily as needed. No current facility-administered medications for this visit. ALLERGIES: ALLERGIES Allergen Reactions Erythromycin Vomiting Opioids - Morphine * GI Upset Vomiting. Stomach spasms. Opioids [Other] Vomiting All of them cause severe nausea and vomiting that can last 24 hours Ciprofloxacin Contraindication-Medical Surgical Tendon rupture with Cipro Levaquin [Levofloxa* Contraindication-Medical Surgical Tendon rupture Penicillin G Other: See Comments Childhood dose. Rash elbows and knees, swelling Sulpha Drugs [Other] Anaphylaxis Tetracycline Vomiting Tramadol Vomiting VITALS: BP 148/90 Pulse 78 Temp 36.6 C (97.8 F) (Tympanic) Resp 18 Wt 65.1 kg (143 lb 9.6 oz) SpO2 95% BMI 28.04 kg/m PHYSICAL EXAM: GEN: mildly ill appearing HEENT: PERRL, EOMI, conjunctiva clear Ears: canals clear. TMs without erythema, bulge, or effusion Sinuses: non-tender frontal sinus, non-tender maxillary sinuses Throat: moist mucous membranes, mild erythema, no exudate Neck: supple, no thyromegaly, no lymphadenopathy HEART: regular rate and rhythm, no murmurs LUNGS: no wheezes, fine bilateral basilar crackles, no increased WOB ASSESSMENT/PLAN: 1. Bronchiectasis with acute exacerbation (HCC) - ICD9: 494.1, ICD10: J47.1 (primary diagnosis) - XR CHEST 2V FRONTAL/LAT - no acute changes. - DOXYCYCLINE MONOHYDRATE 100 MG CAPSULE (multiple antibiotic allergies/intolerances; tolerates doxycycline). 2. Sore throat - ICD9: 462, ICD10: J02.9 - STREP A MOLECULAR (POC) - negative - suspect viral URI, differential includes COVID-19. Declines COVID testing since she has had vaccinations and the illness twice. - Red flags to seek further treatment include chest pain, shortness of breath, and lethargy; in the ER if severe. Fritz Banks MD documented in this encounter [facility] 05-05-2023 Miscellaneous Notes Patient reports she has bronchiectasis and a weakened immune system- reports she goes to [facility] every 4 weeks to get infusions of gammagard, for the past year. Reports for the past 2-3 days is having cough that nebulizer does not help with, low grade fever, and sore throat. Is not currently taking any medications for these symptoms. Patient wanted appt with Dr. Whitman, but no openings. Patient declines offer for same day appt with [facility] [employer] [facility]. Patient states she will stop into for evaluation. documented in this encounter [facility] 04-11-2023 History of Present illness Narrative See Dictation. documented in this encounter [facility] 03-30-2023 Instructions Herminio Whitman MD - 03/30/2023 2:02 PM EDT [facility] in [place]. documented in this encounter [facility] 03-30-2023 History of Present illness Narrative Patient presents with: Follow Up HPI: Patient presents today for office visit for 6wk follow up for depression. Sertraline decreased to 25 mg daily at last visit. Feeling much better. Tremor is the same. Moods are perkier. Refers to feeling more alive. Sleeping well. Uses Tylenol PM 4 x a week. Has more motivation and the want to do things. She wonders if we can stop it all together. She wonders if some of it is S.A.D. Feels much better. Reviewed labs. Renal function is stable. See last ov: Scratched a pink area on her right upper arm. Has been there for over a year. Scratched it and was scaly. Has a hx of a skin cancer. Suggested she see derm HYPOTHYROID: Exhaustion all the time. Not quite sure time frame. Thinks maybe started around the time she started her Gammagard infusions about a year ago. Had COVID back in December also. Denies hair or skin changes. Last TSH normal range. No weight changes. PSYCH: Would like to discuss Sertraline. Does not feel it's helping any longer. Makes her essential tremors worse also. Moods are blah. Being overly tired doesn't help. States she's not sad or depressed but states when she wakes up she just doesn't have the want or motivation to get out of bed. States she feels like ugh another day. Refers to being limited on what she physically can accomplish. Sleeps well. HTN: Monitors BP occ Denies chest pain SOB hasn't changed. Still present. Not any better or worse. Followed by Pulmonary. Pulm states SOB not connected to breathing but possibly Cardio. No headaches Some dizziness upon standing up too fast. No edema No syncope No palpitations Saw Dr. Noguera last year. Cleared. Was told follow up as needed. HLD: No myalgias Component Latest Ref Rng & Units 02/21/2023 Glucose 74 - 99 mg/dL 84 BUN 7 - 21 mg/dL 19 Creatinine 0.58 - 0.96 mg/dL 1.25 (H) Sodium 136 - 144 mmol/L 139 Potassium 3.7 - 5.1 mmol/L 4.7 Chloride 97 - 105 mmol/L 104 CO2 22 - 30 mmol/L 26 Anion Gap 9 - 18 mmol/L 9 Calcium 8.5 - 10.2 mg/dL 10.4 (H) eGFR >=60 mL/min/1.73m 43 (L) T4 5.5 - 10.2 ug/dL 7.6 T4 Uptake 0.91 - 1.19 1.05 FTI 5.3 - 10.8 ug/dL 7.2 TSH 0.270 - 4.200 mIU/L 3.810 MEDICATIONS: Current Outpatient Medications Medication Sig levothyroxine (SYNTHROID) 75 mcg tablet Take 1 tablet by mouth once daily. Except 2 days a week take half a tablet. Take on empty stomach. For Thyroid Cholecalciferol, Vitamin D3, 50 mcg (2,000 unit) cap Take 1 capsule by mouth. sertraline (ZOLOFT) 25 mg tablet Take 1 tablet by mouth once daily. losartan (COZAAR) 100 mg tablet Take 1 tablet by mouth once daily. albuterol (PROVENTIL) 2.5 mg /3 mL (0.083 %) nebulizer solution Use 3 mL via nebulizer once daily. immun glob G,IgG,/gly/IgA ov50 (GAMMAGARD LIQUID INJECTION) by INJECTION(UNSPECIFIED PARENTERAL ROUTES) route. Infusion every 4 wks dilTIAZem CD (CARDIZEM CD, CARTIA XT) 120 mg 24 hr capsule Take 1 capsule by mouth twice daily. atorvastatin (LIPITOR) 10 mg tablet Take 1 tablet by mouth once daily. labetalol (TRANDATE) 100 mg tablet Take 1 tablet by mouth once daily. acetaminophen (TYLENOL) 500 mg tablet Take 1,000 mg by mouth three times daily as needed. No current facility-administered medications for this visit. ALLERGIES: ALLERGIES Allergen Reactions Erythromycin Vomiting Opioids - Morphine * GI Upset Vomiting. Stomach spasms. Opioids [Other] Vomiting All of them cause severe nausea and vomiting that can last 24 hours Ciprofloxacin Contraindication-Medical Surgical Tendon rupture with Cipro Levaquin [Levofloxa* Contraindication-Medical Surgical Tendon rupture Penicillin G Other: See Comments Childhood dose. Rash elbows and knees, swelling Sulpha Drugs [Other] Anaphylaxis Tetracycline Vomiting Tramadol Vomiting PAST MEDICAL HISTORY Diagnosis Date BCC (basal cell carcinoma) 08/26/09 face Essential hypertension, benign Foraminal stenosis of lumbar region 1997 MRI History of lumbosacral spine surgery 12/07/2019 1. L5-S1 posterolateral arthrodesis. 2. L5-S1 laminectomy, medial facetectomy, bilateral foraminotomy. 3. 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 Social History Tobacco Use Smoking status: Former Packs/day: 1.00 Years: 10.00 Pack years: 10.00 Types: Cigarettes Quit date: 10/27/1993 Years since quittin.4 Smokeless tobacco: Never Tobacco comments: ETS: Father in childhood home, at patient age 5. No ETS in adult homes. Substance Use Topics Alcohol use: Yes Comment: 3-4 times a week (a glass of wine with dinner) Drug use: No Reviewed current medications, allergies, past medical history, surgical history, family history and social history today. REVIEW OF SYSTEMS All other reviewed and negative other than HPI. HEALTH MAINTENANCE: Reviewed health maintenance issues today and recommended the following in detail. There are no preventive care reminders to display for this patient. VITALS: BP 136/82 Pulse 76 Ht 152.4 cm (5') Wt 65.6 kg (144 lb 9.6 oz) SpO2 97% BMI 28.24 kg/m Last 4 Encounter Wt Readings: Date: Wt: 02/21/2023 65 kg (143 lb 3.2 oz) 11/26/2022 65.3 kg (144 lb) 10/07/2022 65.8 kg (145 lb) 08/23/2022 65.2 kg (143 lb 12.8 oz) PHYSICAL EXAMINATION: General appearance: Well appearing, alert, in no acute distress, well-hydrated, well nourished. Skin: raised red area on her arm. Head: Normocephalic, no masses, lesions, tenderness or abnormalities Lungs: Lungs clear to auscultation. No wheezing, rhonchi, rales Heart: RRR without murmur, gallop, or rubs. No ectopy Abdomen: Normal abdominal exam, Abdomen soft, non-tender. Bowel sounds normal. No masses, organomegaly ASSESSMENT/PLAN: 1. Fatigue, unspecified type - ICD9: 780.79, ICD10: R53.83 (primary diagnosis) - wean and stop zoloft. Call if any issues. 2. Personal history of skin cancer - ICD9: V10.83, ICD10: Z85.828 - see derm - CONSULT TO DERMATOLOGY 3. Skin lesion - ICD9: 709.9, ICD10: L98.9 - follow with derm - CONSULT TO DERMATOLOGY 4. Anxiety with depression - ICD9: 300.4, ICD10: F41.8 - as above. Herminio Whitman MD documented in this encounter [facility] 03-09-2023 Miscellaneous Notes Patient has been identified by name and date of : Yes Patient phones for refill(s): Requested Prescriptions Pending Prescriptions Disp Refills levothyroxine (SYNTHROID) 75 mcg tablet 90 tablet 3 Sig: Take 1 tablet by mouth once daily. Except 2 days a week take half a tablet. Take on empty stomach. For Thyroid Date of last office visit in primary care: 02/21/23 Next appointment scheduled 03/30/2023 Please advise. Thank you. Maricel Bailey LPN documented in this encounter [facility] 02-21-2023 History of Present illness Narrative Patient presents with: 6 Month Exam HPI: Patient presents today for office visit for follow up HYPOTHYROID: Exhaustion all the time. Not quite sure time frame. Thinks maybe started around the time she started her Gammagard infusions about a year ago. Had COVID back in December also. Denies hair or skin changes. Last TSH normal range. No weight changes. PSYCH: Would like to discuss Sertraline. Does not feel it's helping any longer. Makes her essential tremors worse also. Moods are blah. Being overly tired doesn't help. States she's not sad or depressed but states when she wakes up she just doesn't have the want or motivation to get out of bed. States she feels like ugh another day. Refers to being limited on what she physically can accomplish. Sleeps well. HTN: Monitors BP occ Denies chest pain SOB hasn't changed. Still present. Not any better or worse. Followed by Pulmonary. Pulm states SOB not connected to breathing but possibly Cardio. No headaches Some dizziness upon standing up too fast. No edema No syncope No palpitations Saw Dr. Noguera last year. Cleared. Was told follow up as needed. HLD: No myalgias MEDICATIONS: Current Outpatient Medications Medication Sig Cholecalciferol, Vitamin D3, 50 mcg (2,000 unit) cap Take 1 capsule by mouth. losartan (COZAAR) 100 mg tablet Take 1 tablet by mouth once daily. albuterol (PROVENTIL) 2.5 mg /3 mL (0.083 %) nebulizer solution Use 3 mL via nebulizer once daily. immun glob G,IgG,/gly/IgA ov50 (GAMMAGARD LIQUID INJECTION) by INJECTION(UNSPECIFIED PARENTERAL ROUTES) route. Infusion every 4 wks dilTIAZem CD (CARDIZEM CD, CARTIA XT) 120 mg 24 hr capsule Take 1 capsule by mouth twice daily. atorvastatin (LIPITOR) 10 mg tablet Take 1 tablet by mouth once daily. labetalol (TRANDATE) 100 mg tablet Take 1 tablet by mouth once daily. sertraline (ZOLOFT) 50 mg tablet Take 1 tablet by mouth once daily. levothyroxine (SYNTHROID) 75 mcg tablet Take 1 tablet by mouth once daily. Except 2 days a week take half a tablet. Take on empty stomach. For Thyroid acetaminophen (TYLENOL) 500 mg tablet Take 1,000 mg by mouth three times daily as needed. No current facility-administered medications for this visit. ALLERGIES: ALLERGIES Allergen Reactions Erythromycin Vomiting Opioids - Morphine * GI Upset Vomiting. Stomach spasms. Opioids [Other] Vomiting All of them cause severe nausea and vomiting that can last 24 hours Ciprofloxacin Contraindication-Medical Surgical Tendon rupture with Cipro Levaquin [Levofloxa* Contraindication-Medical Surgical Tendon rupture Penicillin G Other: See Comments Childhood dose. Rash elbows and knees, swelling Sulpha Drugs [Other] Anaphylaxis Tetracycline Vomiting Tramadol Vomiting PAST MEDICAL HISTORY Diagnosis Date BCC (basal cell carcinoma) 08/26/09 face Essential hypertension, benign Foraminal stenosis of lumbar region 1997 MRI History of lumbosacral spine surgery 12/07/2019 1. L5-S1 posterolateral arthrodesis. 2. L5-S1 laminectomy, medial facetectomy, bilateral foraminotomy. 3. 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 Social History Tobacco Use Smoking status: Former Packs/day: 1.00 Years: 10.00 Pack years: 10.00 Types: Cigarettes Quit date: 10/27/1993 Years since quittin.3 Smokeless tobacco: Never Tobacco comments: ETS: Father in childhood home, at patient age 5. No ETS in adult homes. Substance Use Topics Alcohol use: Yes Comment: 3-4 times a week (a glass of wine with dinner) Drug use: No Reviewed current medications, allergies, past medical history, surgical history, family history and social history today. REVIEW OF SYSTEMS No gi or gu issues. All other reviewed and negative other than HPI. HEALTH MAINTENANCE: Reviewed health maintenance issues today and recommended the following in detail. SHINGRIX VACCINE(1 of 2) Never done DTAP,TDAP,TD(2 - Tdap) due on 11/28/2012 DEPRESSION ASSESSMENT Never done Her dpoa is her ex . VITALS: BP 126/82 Pulse 72 Ht 152.4 cm (5') Wt 65 kg (143 lb 3.2 oz) SpO2 96% BMI 27.97 kg/m Last 4 Encounter Wt Readings: Date: Wt: 11/26/2022 65.3 kg (144 lb) 10/07/2022 65.8 kg (145 lb) 08/23/2022 65.2 kg (143 lb 12.8 oz) 02/18/2022 68.9 kg (152 lb) PHYSICAL EXAMINATION: General appearance: Well appearing, alert, in no acute distress, well-hydrated, well nourished. Skin: Skin color, texture, turgor normal, no suspicious rashes or lesions Head: Normocephalic, no masses, lesions, tenderness or abnormalities Lungs: Lungs clear to auscultation. No wheezing, rhonchi, rales Heart: RRR without murmur, gallop, or rubs. No ectopy Abdomen: Normal abdominal exam, Abdomen soft, non-tender. Bowel sounds normal. No masses, organomegaly Extremities: No deformities, edema, skin discoloration, clubbing or cyanosis. Good capillary refill. Musculoskeletal: No joint swelling, deformity, or tenderness Peripheral pulses: Normal PSYCH:Affect normal. Normal speech. Normal eye contact ASSESSMENT/PLAN: 1. Hypertensive chronic kidney disease with stage 1 through stage 4 chronic kidney disease, or unspecified chronic kidney disease - ICD9: 403.90, ICD10: I12.9 (primary diagnosis) - good control - Continue current medication(s) - Goal of BP <130/80 2. Essential hypertension, benign - ICD9: 401.1, ICD10: I10 - good control - Continue current medication(s) - Goal of BP <130/80 3. Bronchiectasis without complication (HCC) - ICD9: 494.0, ICD10: J47.9 - per pulm 4. Lung nodules - ICD9: 793.19, ICD10: R91.8 - per pulm 5. Stage 3 chronic kidney disease, unspecified whether stage 3a or 3b CKD (HCC) - ICD9: 585.3, ICD10: N18.30 - check labs. 6. Acquired hypothyroidism - ICD9: 244.9, ICD10: E03.9 - follow progress. 7. Fatigue, unspecified type - ICD9: 780.79, ICD10: R53.83 - taper zoloft and see if improves. - TSH BLD - T4/FTI/T4U - BASIC METABOLIC PNL 8. Adjustment disorder with other symptom - ICD9: 309.89, ICD10: F43.29 - as above - SERTRALINE 25 MG TABLET Herminio Whitman MD RTO in six weeks. documented in this encounter [facility] 12-01-2022 History of Present illness Narrative Assessment/Plan: Diagnoses and all orders for this visit: Bronchiectasis without complication (HCC) - Miscellaneous DME Equipment Continue current treatment Ordered face mask for her to use with her nebulizer. [facility] fax [facility] in [place]. She will follow up with her pcp for her fatigue. If cough/ sputum worsens, she will bring in the sputum samples for cultures. She has printed copies of the orders. HISTORY Jayashree Ferguson is a 82 y.o. 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 She is here today with her daughter. Dec 2021 labs revealed low IgG, IgM, and Ig A levels. I did refer her to Dr Langford. Labs for CTD (in 2020 and 2021) were negative. January 2022 PFT - mild restriction January 2022 methacholine - negative (FEV1 dropped 17%) January [address] - mild lower lobe bronchiectasis and some plugging. Treatment: Acapella. She started immunoglobulin infusions in February 2022.She has a nebulizer and prn albuterol. Will change this to BID dosing and every 4hours prn today. She is here with her daughter She did have a flare up in the fall. She is doing better. Cough is well controlled. She still has fatigue. She is on steroids now for TMJ and reports the steroids have helped with the fatigue. She will complete this soon. No worsening SOB. No hemoptysis. No fever. No weight loss. Appetite is fair. Current Outpatient Medications: Adult Tussin Chest Congestion 100 mg/5 mL syrup, TAKE 10 ML BY MOUTH EVERY 6 HOURS NEEDED FOR COUGH, Disp: , Rfl: albuterol (PROVENTIL) 2.5 mg /3 mL (0.083 %) nebulizer solution, Do one breathing treatment at least twice daily. Do one breathing treatment every 4 hours as needed for cough or shortness of breath. Give 60 vials, 11 refills. ICD 10 is J47.9 ., Disp: 180 mL, Rfl: 11 atorvastatin (LIPITOR) 10 MG tablet, Take 1 (one) tablet (10 mg total) by mouth nightly ., Disp: , Rfl: cholecalciferol, vitamin D3, 2,000 unit cap, Take 1 (one) capsule by mouth every evening ., Disp: , Rfl: diltiazem (TIAZAC) 120 MG 24 hr capsule, Take 1 (one) capsule (120 mg total) by mouth 2 (two) times a day ., Disp: , Rfl: labetalol (NORMODYNE) 100 MG tablet, Take 1 (one) tablet (100 mg total) by mouth every morning ., Disp: , Rfl: levothyroxine (SYNTHROID, LEVOTHROID) 75 MCG tablet, Take 1 (one) tablet (75 mcg total) by mouth 5 (five) times a week Tuesday through Tuesday ., Disp: , Rfl: levothyroxine (SYNTHROID, LEVOTHROID) 75 MCG tablet, Take 0.5 (one-half) tablet (37.5 mcg total) by mouth twice weekly on Tuesday and Tuesday ., Disp: , Rfl: losartan (COZAAR) 100 MG tablet, Take 1 (one) tablet (100 mg total) by mouth every morning ., Disp: , Rfl: MUCUS CLEARING DEVICE MISC, by Miscellaneous route Order sent to [facility] 01/25/22 ., Disp: , Rfl: sertraline (ZOLOFT) 50 MG tablet, Take 1 (one) tablet (50 mg total) by mouth every morning ., Disp: , Rfl: therapeutic multivitamin (THERAGRAN) tablet, Take 1 (one) tablet by mouth every evening ., Disp: , Rfl: fluticasone propionate (FLONASE) 50 mcg/actuation nasal spray, Instill 2 (two) sprays into each nostril daily . (Patient not taking: Reported on 12/01/2022 .), Disp: 16 g, Rfl: 11 traMADol (ULTRAM) 50 mg tablet, Take 1 (one) tablet (50 mg total) by mouth every 6 (six) hours as needed for pain (Days supply per fill: 5) . (Patient not taking: Reported on 01/25/2022 .), Disp: 15 tablet, Rfl: 0 Allergies as of 12/01/2022 - Reviewed 12/01/2022 Allergen Reaction Noted Sulfa (sulfonamide antibiotics) Anaphylaxis 11/25/2017 Penicillins Swelling and Rash 11/25/2017 Cipro [ciprofloxacin hcl] Other (See Comments) 01/25/2022 Opioids - morphine analogues GI Intolerance 11/25/2017 Immunization History Administered Date(s) Administered Moderna Bivalent Booster:6-11 YRS 0.25mL; 12+YRS 0.5mL 11/08/2022 Moderna SARS-CoV-2 Vaccination 12/26/2020, 01/23/2021, 10/29/2021 Past Medical History: Diagnosis Date Anxiety Arthritis Back pain Bladder problem freq / leakage Cancer (HCC) melanoma Cataract removed Complication of anesthesia Depression Disease of thyroid gland History of echocardiogram History of stress test Hyperlipidemia Hypertension Hypothyroidism Irritable bowel syndrome Lumbar foraminal stenosis Osteoporosis PONV (postoperative nausea and vomiting) SOB (shortness of breath) Past Surgical History: Procedure Laterality Date ARTHROPLASTY KNEE TOTAL Right 11/30/2017 Procedure: RIGHT TOTAL KNEE ARTHROPLASTY ; Surgeon: Rony Guerrero MD; Location: [facility] Main OR; Service: Orthopedic BACK SURGERY COLONOSCOPY JOINT REPLACEMENT lymphectomy POSTERIOR LUMBAR INTERBODY FUSION SINGLE LEVEL N/A 12/07/2019 Procedure: LUMBAR FIVE-SACRAL ONE FACETECTOMY AND FUSION, REPLACE HARDWARE; Surgeon: Mariana Murillo MD; Location: [facility] NEURO OR; Service: Neurological SKIN GRAFT SPINAL FUSION TONSILLECTOMY Family History Problem Relation Age of Onset Heart disease Mother Stroke Mother Brain cancer Father Social History Socioeconomic History Marital status: Tobacco Use Smoking status: Former Packs/day: 1.00 Years: 4.00 Pack years: 4.00 Types: Cigarettes Smokeless tobacco: Never Tobacco comments: in college Vaping Use Vaping Use: Never used Substance and Sexual Activity Alcohol use: Yes Alcohol/week: 3.0 standard drinks Types: 3 Glasses of wine per week Comment: one or more times a week Drug use: Never Sexual activity: Not Currently Vitals: 12/01/22 1215 BP: (!) 145/82 BP Location: Left arm Patient Position: Sitting BP Cuff Size: Adult Pulse: 70 Resp: 12 Temp: 97.3 F (36.3 C) TempSrc: Infrared SpO2: 94% Weight: 64 kg (141 lb) Height: 5' EXAM: Gerneral: alert, oriented x 3, NAD. 141 lbs today (Nov 2022) 139 lbs today in Sep 2022 Eyes: clear conjunctiva ENT: Not hoarse. CVS: RRR, no MGR, no JVD or edema Pulm: Clear. No wheezing, crackles, no dullness. Not labored. No cyanosis or clubbing. Breath sounds and chest wall movement are normal. Psych: alert, appropriate. Pleasant documented in this encounter [facility] 11-26-2022 History of Present illness Narrative Patient presents with: Ear Pain: Left-Worse in last week or 2. Sharp nerve pain. Wakes her up from sleep. HPI: Patient presents today for office visit for an acute ear pain. Chewing makes it worse Can't use nsaids. No right ear pain. No cough or congestion. Jaw has cracked and popped for a long time. No facial numbness or tingling. No tongue issues. No actual headache. Did notice a jab into the left scalp once but has not done it again. No pain with laying on the ear but does hurt to push on the front of the ear at times. MEDICATIONS: Current Outpatient Medications Medication Sig benzonatate (TESSALON PERLES) 100 mg capsule Take 1 capsule by mouth three times daily as needed. losartan (COZAAR) 100 mg tablet Take 1 tablet by mouth once daily. albuterol (PROVENTIL) 2.5 mg /3 mL (0.083 %) nebulizer solution Use 3 mL via nebulizer once daily. immun glob G,IgG,/gly/IgA ov50 (GAMMAGARD LIQUID INJECTION) by INJECTION(UNSPECIFIED PARENTERAL ROUTES) route. Infusion every 4 wks dilTIAZem CD (CARDIZEM CD, CARTIA XT) 120 mg 24 hr capsule Take 1 capsule by mouth twice daily. atorvastatin (LIPITOR) 10 mg tablet Take 1 tablet by mouth once daily. labetalol (TRANDATE) 100 mg tablet Take 1 tablet by mouth once daily. sertraline (ZOLOFT) 50 mg tablet Take 1 tablet by mouth once daily. levothyroxine (SYNTHROID) 75 mcg tablet Take 1 tablet by mouth once daily. Except 2 days a week take half a tablet. Take on empty stomach. For Thyroid beclomethasone (QVAR REDIHALER) 40 mcg/actuation inhaler Inhale 1 Puff as instructed twice daily. guaiFENesin (ROBITUSSIN) 100 mg/5 mL syrup Take 10 mL by mouth every 6 hours as needed for cough. acetaminophen (TYLENOL) 500 mg tablet Take 1,000 mg by mouth three times daily as needed. No current facility-administered medications for this visit. ALLERGIES: ALLERGIES Allergen Reactions Erythromycin Vomiting Opioids - Morphine * GI Upset Vomiting. Stomach spasms. Opioids [Other] Vomiting All of them cause severe nausea and vomiting that can last 24 hours Ciprofloxacin Contraindication-Medical Surgical Tendon rupture with Cipro Levaquin [Levofloxa* Contraindication-Medical Surgical Tendon rupture Penicillin G Other: See Comments Childhood dose. Rash elbows and knees, swelling Sulpha Drugs [Other] Anaphylaxis Tetracycline Vomiting Tramadol Vomiting PAST MEDICAL HISTORY Diagnosis Date BCC (basal cell carcinoma) 08/26/09 face Essential hypertension, benign Foraminal stenosis of lumbar region 1997 MRI History of lumbosacral spine surgery 12/07/2019 1. L5-S1 posterolateral arthrodesis. 2. L5-S1 laminectomy, medial facetectomy, bilateral foraminotomy. 3. 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 Social History Tobacco Use Smoking status: Former Packs/day: 1.00 Years: 10.00 Pack years: 10.00 Types: Cigarettes Quit date: 10/27/1993 Years since quittin.1 Smokeless tobacco: Never Tobacco comments: ETS: Father in childhood home, at patient age 5. No ETS in adult homes. Substance Use Topics Alcohol use: Yes Comment: 3-4 times a week (a glass of wine with dinner) Drug use: No Reviewed current medications, allergies, past medical history, surgical history, family history and social history today. REVIEW OF SYSTEMS All other reviewed and negative other than HPI. VITALS: BP 110/62 Pulse 71 Wt 65.3 kg (144 lb) SpO2 96% BMI 28.12 kg/m Last 4 Encounter Wt Readings: Date: Wt: 11/26/2022 65.3 kg (144 lb) 10/07/2022 65.8 kg (145 lb) 08/23/2022 65.2 kg (143 lb 12.8 oz) 02/18/2022 68.9 kg (152 lb) PHYSICAL EXAMINATION: General appearance: Well appearing, alert, in no acute distress, well-hydrated, well nourished. Skin: Skin color, texture, turgor normal, no suspicious rashes or lesions Head: Normocephalic, no masses, lesions, tenderness or abnormalities. Tender over left tmj joint. Has crepitus. Eyes: Anicteric sclera. Pupils are equally round and reactive to light. Extraocular movements are intact. Ears: External ears normal, canals clear, Negative findings: external ears normal to inspection and palpation Nose/Sinuses: Nares normal, septum midline, mucosa normal, no drainage or sinus tenderness Oropharynx: Lips, mucosa, and tongue normal, teeth and gums normal, oropharynx normal Neck: Supple, no adenopathy; thyroid symmetric, normal size, no bruits ASSESSMENT/PLAN: 1. Left ear pain - ICD9: 388.70, ICD10: H92.02 - ? Tmj. Steroids for 5 days, ice and rest. Consider dental or ent referral if persists. Herminio Whitman MD documented in this encounter [facility] 10-07-2022 History of Present illness Narrative Patient presents with: Cough HPI: Patient presents today for office visit for Patient presents today complaining of increased cough. Duration: started Tuesday. Cough is productive:No. Fever: :No. Shortness of breath:No. Sore throat :YES. Ear Pain :no pain but ringing. Chest Pain :No. Previous treatments tried: her usual treatments. Using her nebulizer. No exposure to her knowledge. Did note slight changes in taste. Feels like it is in her head, not her lungs. Has had flu vaccine Is on covid as well. Discussed oral meds if needed. MEDICATIONS: Current Outpatient Medications Medication Sig losartan (COZAAR) 100 mg tablet Take 1 tablet by mouth once daily. albuterol (PROVENTIL) 2.5 mg /3 mL (0.083 %) nebulizer solution Use 3 mL via nebulizer once daily. immun glob G,IgG,/gly/IgA ov50 (GAMMAGARD LIQUID INJECTION) by INJECTION(UNSPECIFIED PARENTERAL ROUTES) route. Infusion every 4 wks dilTIAZem CD (CARDIZEM CD, CARTIA XT) 120 mg 24 hr capsule Take 1 capsule by mouth twice daily. atorvastatin (LIPITOR) 10 mg tablet Take 1 tablet by mouth once daily. labetalol (TRANDATE) 100 mg tablet Take 1 tablet by mouth once daily. sertraline (ZOLOFT) 50 mg tablet Take 1 tablet by mouth once daily. levothyroxine (SYNTHROID) 75 mcg tablet Take 1 tablet by mouth once daily. Except 2 days a week take half a tablet. Take on empty stomach. For Thyroid beclomethasone (QVAR REDIHALER) 40 mcg/actuation inhaler Inhale 1 Puff as instructed twice daily. guaiFENesin (ROBITUSSIN) 100 mg/5 mL syrup Take 10 mL by mouth every 6 hours as needed for cough. acetaminophen (TYLENOL) 500 mg tablet Take 1,000 mg by mouth three times daily as needed. No current facility-administered medications for this visit. ALLERGIES: ALLERGIES Allergen Reactions Erythromycin Vomiting Opioids - Morphine * GI Upset Vomiting. Stomach spasms. Opioids [Other] Vomiting All of them cause severe nausea and vomiting that can last 24 hours Ciprofloxacin Contraindication-Medical Surgical Tendon rupture with Cipro Levaquin [Levofloxa* Contraindication-Medical Surgical Tendon rupture Penicillin G Other: See Comments Childhood dose. Rash elbows and knees, swelling Sulpha Drugs [Other] Anaphylaxis Tetracycline Vomiting Tramadol Vomiting PAST MEDICAL HISTORY Diagnosis Date BCC (basal cell carcinoma) 08/26/09 face Essential hypertension, benign Foraminal stenosis of lumbar region 1997 MRI History of lumbosacral spine surgery 12/07/2019 1. L5-S1 posterolateral arthrodesis. 2. L5-S1 laminectomy, medial facetectomy, bilateral foraminotomy. 3. 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 Social History Tobacco Use Smoking status: Former Packs/day: 1.00 Years: 10.00 Pack years: 10.00 Types: Cigarettes Quit date: 10/27/1993 Years since quittin.9 Smokeless tobacco: Never Tobacco comments: ETS: Father in childhood home, at patient age 5. No ETS in adult homes. Substance Use Topics Alcohol use: Yes Comment: 3-4 times a week (a glass of wine with dinner) Drug use: No Reviewed current medications, allergies, past medical history, surgical history, family history and social history today. REVIEW OF SYSTEMS GI: No nausea, vomiting, or diarrhea All other reviewed and negative other than HPI. VITALS: BP 121/75 Pulse 77 Temp 37.1 C (98.8 F) Wt 65.8 kg (145 lb) SpO2 94% BMI 28.32 kg/m Last 4 Encounter Wt Readings: Date: Wt: 08/23/2022 65.2 kg (143 lb 12.8 oz) 02/18/2022 68.9 kg (152 lb) 01/12/2022 69 kg (152 lb 3.2 oz) 08/21/2021 69.9 kg (154 lb) PHYSICAL EXAMINATION: General appearance: Well appearing, alert, in no acute distress, well-hydrated, well nourished. Skin: Skin color, texture, turgor normal, no suspicious rashes or lesions Head: Normocephalic, no masses, lesions, tenderness or abnormalities Eyes: Anicteric sclera. Pupils are equally round and reactive to light. Extraocular movements are intact. Ears: External ears normal, canals clear Nose/Sinuses: Nares normal, septum midline, mucosa normal, no drainage or sinus tenderness Oropharynx: Lips, mucosa, and tongue normal, teeth and gums normal, oropharynx normal Neck: Supple, no adenopath Lungs: Lungs clear to auscultation. No wheezing, rhonchi, rales Heart: RRR without murmur, gallop, or rubs. No ectopy Abdomen: Normal abdominal exam, Abdomen soft, non-tender. Bowel sounds normal. No masses, organomegaly Extremities: No deformities, edema, skin discoloration, clubbing or cyanosis. Good capillary refill. ASSESSMENT/PLAN: 1. Acute cough - ICD9: 786.2, ICD10: R05.1 (primary diagnosis) - appears viral. Lungs are doing well. Discussed mucinex prn. Red flags for re-assessment reviewed with patient in detail. - Call if symptoms worsen at all or if not better in one to two weeks - COVID WITH FLUA+B, ROUTINE - BENZONATATE 100 MG CAPSULE 2. Essential hypertension, benign - ICD9: 401.1, ICD10: I10 - Continue current medication(s) - Goal of BP <130/80 3. Bronchiectasis without complication (HCC) - ICD9: 494.0, ICD10: J47.9 - stable. 4. URI, acute - ICD9: 465.9, ICD10: J06.9 - Discussed viral etiology and rationale for treatment. - Symptomatic treatment with prn analgesia - Supportive care with fluids and rest - COVID WITH FLUA+B, ROUTINE - BENZONATATE 100 MG CAPSULE Herminio Whitman MD documented in this encounter [facility] 10-04-2022 History of Present illness Narrative Assessment/Plan: Diagnoses and all orders for this visit: Bronchiectasis without complication (HCC) - albuterol (PROVENTIL) 2.5 mg /3 mL (0.083 %) nebulizer solution; Do one breathing treatment at least twice daily. Do one breathing treatment every 4 hours as needed for cough or shortness of breath. Give 60 vials, 11 refills. ICD 10 is J47.9 . - Handicap Placard - Sputum AFB Culture; Standing - Sputum Aerobic Culture; Standing Nasal congestion - fluticasone propionate (FLONASE) 50 mcg/actuation nasal spray; Instill 2 (two) sprays into each nostril daily . No exacerbations. Chronic cough seems intrusive. She reports chronic fatigue and MORAN. On exam, she is very clear. Discussed other treatment options: Inhalers, ICS, oscillation vest, rotating antibiotics. For now, she will continue her acapella. She will use her albuterol nebs at least twice daily. She can use both every 4 hours as needed when her symptoms are worse. When I see her back in 6-8 weeks, if not doing well, can discuss the vest and/ or ICS Nasal congestion/ drainage can be a factor to her cough. She had negative allergy testing earlier this year. She was advised to try nasal flonase. I did give her a sputum cup and a hand written order for cultures if she can produce sputum. She was advised to touch base with her pcp about her fatigue and her MORAN (to make sure other non pulmonary causes have been evaluated/ addressed) 40 minutes was spent with the patient. More than half that time was spent face to face, counseling and discussing plan of care / addressing questions/ concerns documented above HISTORY Jayashree Ferguson is a 82 y.o. 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 She is here today with her daughter. Dec 2021 labs revealed low IgG, IgM, and Ig A levels. I did refer her to Dr Langford. Labs for CTD (in 2020 and 2021) were negative. January 2022 PFT - mild restriction January 2022 methacholine - negative (FEV1 dropped 17%) Treatment: Acapella. She started immunoglobulin infusions in February.She has a nebulizer and prn albuterol. Will change this to BID dosing and every 4hours prn today. She is here with her daughter She has had no flare ups. No bronchitis. No pneumonia. No ED visits. She has a chronic cough and this seems more intrusive. She is compliant with her acapella. She uses the nebulizer only once each morning. Last night, she did not sleep at all bc of cough. She has no sputum. No fever. No chest pain. Some pressure at times. She is very, very tired. She reports shortness of breath with little exertion. She does walk on her treadmill 20 min daily. No hemoptysis. She does have some sinus drainage. No sinus pain. No nose bleeds Current Outpatient Medications: Adult Tussin Chest Congestion 100 mg/5 mL syrup, TAKE 10 ML BY MOUTH EVERY 6 HOURS NEEDED FOR COUGH, Disp: , Rfl: atorvastatin (LIPITOR) 10 MG tablet, Take 10 mg by mouth nightly ., Disp: , Rfl: cholecalciferol, vitamin D3, 2,000 unit cap, Take 2,000 Units by mouth every evening ., Disp: , Rfl: diltiazem (TIAZAC) 120 MG 24 hr capsule, Take 120 mg by mouth 2 (two) times a day ., Disp: , Rfl: labetalol (NORMODYNE) 100 MG tablet, Take 100 mg by mouth every morning ., Disp: , Rfl: levothyroxine (SYNTHROID, LEVOTHROID) 75 MCG tablet, Take 75 mcg by mouth 5 (five) times a week Tuesday through Tuesday ., Disp: , Rfl: levothyroxine (SYNTHROID, LEVOTHROID) 75 MCG tablet, Take 37.5 mcg by mouth twice weekly on Tuesday and Tuesday ., Disp: , Rfl: losartan (COZAAR) 100 MG tablet, Take 100 mg by mouth every morning ., Disp: , Rfl: MUCUS CLEARING DEVICE MIS, by Miscellaneous route Order sent to [facility] 01/25/22 ., Disp: , Rfl: sertraline (ZOLOFT) 50 MG tablet, Take 50 mg by mouth every morning ., Disp: , Rfl: therapeutic multivitamin (THERAGRAN) tablet, Take 1 tablet by mouth every evening ., Disp: , Rfl: albuterol (PROVENTIL) 2.5 mg /3 mL (0.083 %) nebulizer solution, Do one breathing treatment at least twice daily. Do one breathing treatment every 4 hours as needed for cough or shortness of breath. Give 60 vials, 11 refills. ICD 10 is J47.9 ., Disp: 180 mL, Rfl: 11 fluticasone propionate (FLONASE) 50 mcg/actuation nasal spray, Instill 2 (two) sprays into each nostril daily ., Disp: 16 g, Rfl: 11 traMADol (ULTRAM) 50 mg tablet, Take 1 (one) tablet (50 mg total) by mouth every 6 (six) hours as needed for pain (Days supply per fill: 5) . (Patient not taking: No sig reported), Disp: 15 tablet, Rfl: 0 Allergies as of 10/04/2022 - Reviewed 10/04/2022 Allergen Reaction Noted Sulfa (sulfonamide antibiotics) Anaphylaxis 11/25/2017 Penicillins Swelling and Rash 11/25/2017 Cipro [ciprofloxacin hcl] Other (See Comments) 01/25/2022 Opioids - morphine analogues GI Intolerance 11/25/2017 Immunization History Administered Date(s) Administered Moderna SARS-CoV-2 Vaccination 12/26/2020, 01/23/2021, 10/29/2021 Past Medical History: Diagnosis Date Anxiety Arthritis Back pain Bladder problem freq / leakage Cancer (HCC) melanoma Cataract removed Complication of anesthesia Depression Disease of thyroid gland History of echocardiogram History of stress test Hyperlipidemia Hypertension Hypothyroidism Irritable bowel syndrome Lumbar foraminal stenosis Osteoporosis PONV (postoperative nausea and vomiting) SOB (shortness of breath) Past Surgical History: Procedure Laterality Date ARTHROPLASTY KNEE TOTAL Right 11/30/2017 Procedure: RIGHT TOTAL KNEE ARTHROPLASTY ; Surgeon: Rony Guerrero MD; Location: [facility] Main OR; Service: Orthopedic BACK SURGERY COLONOSCOPY JOINT REPLACEMENT lymphectomy POSTERIOR LUMBAR INTERBODY FUSION SINGLE LEVEL N/A 12/07/2019 Procedure: LUMBAR FIVE-SACRAL ONE FACETECTOMY AND FUSION, REPLACE HARDWARE; Surgeon: Mariana Murillo MD; Location: [facility] NEURO OR; Service: Neurological SKIN GRAFT SPINAL FUSION TONSILLECTOMY Family History Problem Relation Age of Onset Heart disease Mother Stroke Mother Brain cancer Father Social History Socioeconomic History Marital status: Tobacco Use Smoking status: Former Packs/day: 1.00 Years: 4.00 Pack years: 4.00 Types: Cigarettes Smokeless tobacco: Never Tobacco comments: in college Vaping Use Vaping Use: Never used Substance and Sexual Activity Alcohol use: Yes Alcohol/week: 3.0 standard drinks Types: 3 Glasses of wine per week Comment: one or more times a week Drug use: Never Sexual activity: Not Currently Vitals: 10/04/22 1130 BP: (!) 149/82 BP Location: Left arm Patient Position: Sitting BP Cuff Size: Adult Pulse: 69 Resp: 12 Temp: 98.2 F (36.8 C) TempSrc: Infrared SpO2: 95% Weight: 63 kg (139 lb) Height: 5' EXAM: Gerneral: alert, oriented x 3, NAD. 139 lbs today (Sep 2022) Eyes: clear conjunctiva ENT: Not hoarse. CVS: RRR, no MGR, no JVD or edema Pulm: Clear. No wheezing, crackles, no dullness. Not labored. No cyanosis or clubbing. Breath sounds and chest wall movement are normal. Psych: alert, appropriate. Pleasant Lymph: no cervical LAD documented in this encounter [facility] 09-09-2022 Miscellaneous Notes Patient has been identified by name and date of : Yes Patient phones for refill(s): Requested Prescriptions Pending Prescriptions Disp Refills losartan (COZAAR) 100 mg tablet 90 tablet 3 Sig: Take 1 tablet by mouth once daily. Date of last office visit in primary care: 08/23/22 Please advise. Thank you. Maricel Bailey LPN documented in this encounter [facility] 07-23-2022 Miscellaneous Notes Patient has been identified by name and date of : Yes Patient phones for refill(s): Requested Prescriptions Pending Prescriptions Disp Refills dilTIAZem CD (CARDIZEM CD, CARTIA XT) 120 mg 24 hr capsule 180 capsule 3 Sig: Take 1 capsule by mouth twice daily. atorvastatin (LIPITOR) 10 mg tablet 90 tablet 3 Sig: Take 1 tablet by mouth once daily. Date of last office visit in primary care: 02/18/22 Last 2 Encounter Wt Readings: Date: Wt: 02/18/2022 68.9 kg (152 lb) 01/12/2022 69 kg (152 lb 3.2 oz) Previous labs/tests for medication: Cholesterol: HDL Cholesterol (mg/dL) Date Value 08/27/2021 67 LDL Cholesterol (mg/dL) Date Value 08/27/2021 110 ALT (U/L) Date Value 08/27/2021 14 Non HDL Cholesterol (mg/dL) Date Value 08/27/2021 125 Blood Pressure: BUN (mg/dL) Date Value 08/27/2021 17 Sodium (mmol/L) Date Value 08/27/2021 140 Last 1 Encounter BP Readings: Date: BP: 02/18/2022 112/72 Please advise. Thank you. Debbie Barajas LPN documented in this encounter [facility] 06-18-2022 Note Addended by: PRICE GONCALVES on: 06/18/2022 11:40 AM Modules accepted: Orders [facility] 06-18-2022 Miscellaneous Notes Addended by: KAREN GONCALVES on: 06/18/2022 11:40 AM Modules accepted: Orders documented in this encounter [facility] 06-04-2022 History of Present illness Narrative Assessment/Plan: Diagnoses and all orders for this visit: Bronchiectasis without complication (HCC) - azithromycin (ZITHROMAX) 250 MG tablet; 2 tabs on day #1. Then, 1 tab orally daily for days #2 - #5 . - methylPREDNISolone (MEDROL DOSEPACK) 4 mg tablet; Follow package directions . - albuterol (PROVENTIL) 2.5 mg /3 mL (0.083 %) nebulizer solution; Take 3 mL (2.5 mg total) by nebulization every 6 (six) hours as needed for wheezing or shortness of breath (or cough) . Immunoglobulin deficiency (HCC) Continue Acapella Ordered a nebulizer for her to use as needed for the cough and SOB from her bronchiectasis. Symptoms are worse this past week. She was given antibiotics and steroids in case she flares up. Follow up in September. HISTORY Jayashree Ferguson is a 82 y.o. 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 She is here today with her daughter. Dec 2021 labs revealed low IgG, IgM, and Ig A levels. I did refer her to Dr Langford. Labs for CTD (in 2020 and 2021) were negative. January 2022 PFT - mild restriction January 2022 methacholine - negative (FEV1 dropped 17%) Treatment: Acapella. She started immunoglobulin infusions in February She is here with her daughter She reports she was doing well up until 1 week ago. Has noticed some increase in cough and some SOB. She has been using her acapalla and has been using it more frequent this week. Feels well. No sore throat. No thrush. Not hoarse. No chest pain. No hemoptysis No nausea. No emesis. No headache. Decreased appetite chronically. No nausea. No emesis. No dysphagia or pain with eating/ swallowing. Current Outpatient Medications: Adult Tussin Chest Congestion 100 mg/5 mL syrup, TAKE 10 ML BY MOUTH EVERY 6 HOURS NEEDED FOR COUGH, Disp: , Rfl: atorvastatin (LIPITOR) 10 MG tablet, Take 10 mg by mouth nightly ., Disp: , Rfl: cholecalciferol, vitamin D3, 2,000 unit cap, Take 2,000 Units by mouth every evening ., Disp: , Rfl: diltiazem (TIAZAC) 120 MG 24 hr capsule, Take 120 mg by mouth 2 (two) times a day ., Disp: , Rfl: labetalol (NORMODYNE) 100 MG tablet, Take 100 mg by mouth every morning ., Disp: , Rfl: levothyroxine (SYNTHROID, LEVOTHROID) 75 MCG tablet, Take 75 mcg by mouth 5 (five) times a week Tuesday through Tuesday ., Disp: , Rfl: levothyroxine (SYNTHROID, LEVOTHROID) 75 MCG tablet, Take 37.5 mcg by mouth twice weekly on Tuesday and Tuesday ., Disp: , Rfl: losartan (COZAAR) 100 MG tablet, Take 100 mg by mouth every morning ., Disp: , Rfl: MUCUS CLEARING DEVICE [place], by Miscellaneous route Order sent to [facility] 01/25/22 ., Disp: , Rfl: sertraline (ZOLOFT) 50 MG tablet, Take 50 mg by mouth every morning ., Disp: , Rfl: therapeutic multivitamin (THERAGRAN) tablet, Take 1 tablet by mouth every evening ., Disp: , Rfl: albuterol (PROVENTIL) 2.5 mg /3 mL (0.083 %) nebulizer solution, Take 3 mL (2.5 mg total) by nebulization every 6 (six) hours as needed for wheezing or shortness of breath (or cough) ., Disp: 90 mL, Rfl: 11 azithromycin (ZITHROMAX) 250 MG tablet, 2 tabs on day #1. Then, 1 tab orally daily for days #2 - #5 ., Disp: 6 tablet, Rfl: 0 cyclobenzaprine (FLEXERIL) 10 MG tablet, Take 1 (one) tablet (10 mg total) by mouth 3 (three) times a day as needed for muscle spasms . (Patient not taking: No sig reported), Disp: 90 tablet, Rfl: 2 doxycycline hyclate (VIBRAMYCIN) 100 MG capsule, Take 1 (one) capsule (100 mg total) by mouth 2 (two) times a day . (Patient not taking: Reported on 06/04/2022 .), Disp: 20 capsule, Rfl: 0 methylPREDNISolone (MEDROL DOSEPACK) 4 mg tablet, Follow package directions ., Disp: 21 tablet, Rfl: 0 traMADol (ULTRAM) 50 mg tablet, Take 1 (one) tablet (50 mg total) by mouth every 6 (six) hours as needed for pain (Days supply per fill: 5) . (Patient not taking: No sig reported), Disp: 15 tablet, Rfl: 0 Allergies as of 06/04/2022 - Reviewed 06/04/2022 Allergen Reaction Noted Sulfa (sulfonamide antibiotics) Anaphylaxis 11/25/2017 Penicillins Swelling and Rash 11/25/2017 Cipro [ciprofloxacin hcl] Other (See Comments) 01/25/2022 Opioids - morphine analogues GI Intolerance 11/25/2017 Immunization History Administered Date(s) Administered Moderna SARS-CoV-2 Vaccination 12/26/2020, 01/23/2021, 10/29/2021 Past Medical History: Diagnosis Date Anxiety Arthritis Back pain Bladder problem freq / leakage Cancer (HCC) melanoma Cataract removed Complication of anesthesia Depression Disease of thyroid gland History of echocardiogram History of stress test Hyperlipidemia Hypertension Hypothyroidism Irritable bowel syndrome Lumbar foraminal stenosis Osteoporosis PONV (postoperative nausea and vomiting) SOB (shortness of breath) Past Surgical History: Procedure Laterality Date ARTHROPLASTY KNEE TOTAL Right 11/30/2017 Procedure: RIGHT TOTAL KNEE ARTHROPLASTY ; Surgeon: Rony Guerrero MD; Location: [facility] Main OR; Service: Orthopedic BACK SURGERY COLONOSCOPY JOINT REPLACEMENT lymphectomy POSTERIOR LUMBAR INTERBODY FUSION SINGLE LEVEL N/A 12/07/2019 Procedure: LUMBAR FIVE-SACRAL ONE FACETECTOMY AND FUSION, REPLACE HARDWARE; Surgeon: Mariana Murillo MD; Location: [facility] NEURO OR; Service: Neurological SKIN GRAFT SPINAL FUSION TONSILLECTOMY Family History Problem Relation Age of Onset Heart disease Mother Stroke Mother Brain cancer Father Social History Socioeconomic History Marital status: Tobacco Use Smoking status: Former Packs/day: 1.00 Years: 4.00 Pack years: 4.00 Types: Cigarettes Smokeless tobacco: Never Tobacco comments: in college Vaping Use Vaping Use: Never used Substance and Sexual Activity Alcohol use: Yes Alcohol/week: 3.0 standard drinks Types: 3 Glasses of wine per week Comment: one or more times a week Drug use: Never Sexual activity: Not Currently Vitals: 06/04/22 1111 BP: (!) 153/80 BP Location: Left arm Patient Position: Sitting BP Cuff Size: X-large Adult Pulse: 62 Resp: 16 Temp: 97.7 F (36.5 C) TempSrc: Temporal SpO2: 94% Weight: 64 kg (141 lb) Height: 5' EXAM: Gerneral: alert, oriented x 3, NAD Eyes: clear conjunctiva ENT: Not hoarse. CVS: RRR, no MGR, no JVD or edema Pulm: Clear. No wheezing, crackles, no dullness. Not labored. No cyanosis or clubbing. Breath sounds and chest wall movement are normal. Psych: alert, appropriate. Pleasant Lymph: no cervical LAD documented in this encounter [facility] 06-04-2022 History of Present illness Narrative Assessment/Plan: Diagnoses and all orders for this visit: Bronchiectasis without complication (HCC) - azithromycin (ZITHROMAX) 250 MG tablet; 2 tabs on day #1. Then, 1 tab orally daily for days #2 - #5 . - methylPREDNISolone (MEDROL DOSEPACK) 4 mg tablet; Follow package directions . - albuterol (PROVENTIL) 2.5 mg /3 mL (0.083 %) nebulizer solution; Take 3 mL (2.5 mg total) by nebulization every 6 (six) hours as needed for wheezing or shortness of breath (or cough) . - Home Nebulizer (E0570) with Nebulizer Supplies albuterol (PROVENTIL, VENTOLIN); as per nebulizer solution medication prescribed Immunoglobulin deficiency (HCC) Continue Acasandilla Ordered a nebulizer for her to use as needed for the cough and SOB from her bronchiectasis. Symptoms are worse this past week. She was given antibiotics and steroids in case she flares up. Follow up in September. HISTORY Jayashree Ferguson is a 82 y.o. 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 She is here today with her daughter. Dec 2021 labs revealed low IgG, IgM, and Ig A levels. I did refer her to Dr Langford. Labs for CTD (in 2020 and 2021) were negative. January 2022 PFT - mild restriction January 2022 methacholine - negative (FEV1 dropped 17%) Treatment: Acapella. She started immunoglobulin infusions in February She is here with her daughter She reports she was doing well up until 1 week ago. Has noticed some increase in cough and some SOB. She has been using her acapalla and has been using it more frequent this week. Feels well. No sore throat. No thrush. Not hoarse. No chest pain. No hemoptysis No nausea. No emesis. No headache. Decreased appetite chronically. No nausea. No emesis. No dysphagia or pain with eating/ swallowing. Current Outpatient Medications: Adult Tussin Chest Congestion 100 mg/5 mL syrup, TAKE 10 ML BY MOUTH EVERY 6 HOURS NEEDED FOR COUGH, Disp: , Rfl: atorvastatin (LIPITOR) 10 MG tablet, Take 10 mg by mouth nightly ., Disp: , Rfl: cholecalciferol, vitamin D3, 2,000 unit cap, Take 2,000 Units by mouth every evening ., Disp: , Rfl: diltiazem (TIAZAC) 120 MG 24 hr capsule, Take 120 mg by mouth 2 (two) times a day ., Disp: , Rfl: labetalol (NORMODYNE) 100 MG tablet, Take 100 mg by mouth every morning ., Disp: , Rfl: levothyroxine (SYNTHROID, LEVOTHROID) 75 MCG tablet, Take 75 mcg by mouth 5 (five) times a week Tuesday through Tuesday ., Disp: , Rfl: levothyroxine (SYNTHROID, LEVOTHROID) 75 MCG tablet, Take 37.5 mcg by mouth twice weekly on Tuesday and Tuesday ., Disp: , Rfl: losartan (COZAAR) 100 MG tablet, Take 100 mg by mouth every morning ., Disp: , Rfl: MUCUS CLEARING DEVICE MISC, by Miscellaneous route Order sent to [facility] 01/25/22 ., Disp: , Rfl: sertraline (ZOLOFT) 50 MG tablet, Take 50 mg by mouth every morning ., Disp: , Rfl: therapeutic multivitamin (THERAGRAN) tablet, Take 1 tablet by mouth every evening ., Disp: , Rfl: albuterol (PROVENTIL) 2.5 mg /3 mL (0.083 %) nebulizer solution, Take 3 mL (2.5 mg total) by nebulization every 6 (six) hours as needed for wheezing or shortness of breath (or cough) ., Disp: 90 mL, Rfl: 11 azithromycin (ZITHROMAX) 250 MG tablet, 2 tabs on day #1. Then, 1 tab orally daily for days #2 - #5 ., Disp: 6 tablet, Rfl: 0 cyclobenzaprine (FLEXERIL) 10 MG tablet, Take 1 (one) tablet (10 mg total) by mouth 3 (three) times a day as needed for muscle spasms . (Patient not taking: No sig reported), Disp: 90 tablet, Rfl: 2 doxycycline hyclate (VIBRAMYCIN) 100 MG capsule, Take 1 (one) capsule (100 mg total) by mouth 2 (two) times a day . (Patient not taking: Reported on 06/04/2022 .), Disp: 20 capsule, Rfl: 0 traMADol (ULTRAM) 50 mg tablet, Take 1 (one) tablet (50 mg total) by mouth every 6 (six) hours as needed for pain (Days supply per fill: 5) . (Patient not taking: No sig reported), Disp: 15 tablet, Rfl: 0 Allergies as of 06/04/2022 - Reviewed 06/04/2022 Allergen Reaction Noted Sulfa (sulfonamide antibiotics) Anaphylaxis 11/25/2017 Penicillins Swelling and Rash 11/25/2017 Cipro [ciprofloxacin hcl] Other (See Comments) 01/25/2022 Opioids - morphine analogues GI Intolerance 11/25/2017 Immunization History Administered Date(s) Administered Moderna SARS-CoV-2 Vaccination 12/26/2020, 01/23/2021, 10/29/2021 Past Medical History: Diagnosis Date Anxiety Arthritis Back pain Bladder problem freq / leakage Cancer (HCC) melanoma Cataract removed Complication of anesthesia Depression Disease of thyroid gland History of echocardiogram History of stress test Hyperlipidemia Hypertension Hypothyroidism Irritable bowel syndrome Lumbar foraminal stenosis Osteoporosis PONV (postoperative nausea and vomiting) SOB (shortness of breath) Past Surgical History: Procedure Laterality Date ARTHROPLASTY KNEE TOTAL Right 11/30/2017 Procedure: RIGHT TOTAL KNEE ARTHROPLASTY ; Surgeon: Rony Guerrero MD; Location: [facility] Main OR; Service: Orthopedic BACK SURGERY COLONOSCOPY JOINT REPLACEMENT lymphectomy POSTERIOR LUMBAR INTERBODY FUSION SINGLE LEVEL N/A 12/07/2019 Procedure: LUMBAR FIVE-SACRAL ONE FACETECTOMY AND FUSION, REPLACE HARDWARE; Surgeon: Mariana Murlilo MD; Location: [facility] NEUR[facility] OR; Service: Neurological SKIN GRAFT SPINAL FUSION TONSILLECTOMY Family History Problem Relation Age of Onset Heart disease Mother Stroke Mother Brain cancer Father Social History Socioeconomic History Marital status: Tobacco Use Smoking status: Former Packs/day: 1.00 Years: 4.00 Pack years: 4.00 Types: Cigarettes Smokeless tobacco: Never Tobacco comments: in college Vaping Use Vaping Use: Never used Substance and Sexual Activity Alcohol use: Yes Alcohol/week: 3.0 standard drinks Types: 3 Glasses of wine per week Comment: one or more times a week Drug use: Never Sexual activity: Not Currently Vitals: 06/04/22 1111 BP: (!) 153/80 BP Location: Left arm Patient Position: Sitting BP Cuff Size: X-large Adult Pulse: 62 Resp: 16 Temp: 97.7 F (36.5 C) TempSrc: Temporal SpO2: 94% Weight: 64 kg (141 lb) Height: 5' EXAM: Gerneral: alert, oriented x 3, NAD Eyes: clear conjunctiva ENT: Not hoarse. CVS: RRR, no MGR, no JVD or edema Pulm: Clear. No wheezing, crackles, no dullness. Not labored. No cyanosis or clubbing. Breath sounds and chest wall movement are normal. Psych: alert, appropriate. Pleasant Lymph: no cervical LAD documented in this encounter [facility] 03-23-2021 History of Past i llness Narrative Problem Noted Date Diagnosed Date Resolved Date Hypertensive chronic kidney disease with stage 1 through stage 4 chronic kidney disease, or unspecified chronic kidney disease 03/23/2021 10/10/2023 Hypertensive heart disease w ith stage 3 chronic kidney disease 08/22/2020 08/22/2020 Acquired hypothyroidism 09/12/201507/30 Left shoulder pain 02/28/2014 1 Inflamed seborrheic keratosis 12/05/2008 02/01/2014 Contact dermatitis and other eczema, due to unspecified cause 12/05/2008 02/01/2014 Other chronic dermatitis due to solar radiation 11/09/2007 02/01/2014 Scar condition and fibrosis of skin 11/09/2007 02/01/2014 Benign neoplasm of skin of o ther and unspecified parts of face 10/14/2003 02/01/2014 Mixed hyperlipidemia 022 documented as of this encounter (statuses as of 10/11/2023) [facility] History of Past illness Narrative* Problem Noted Date Diagnosed Date Resolved Date Hypertensive chronic kidney disease with stage 1 through stage 4 chronic kidney disease, or unspecified chronic kidney disease 03/23/2021 10/10/2023 Hypertensive heart disease w ith stage 3 chronic kidney disease 08/22/2020 08/22/2020 Acquired hypothyroidism 09/12/201507/30 Left shoulder pain 02/28/2014 1 Inflamed seborrheic keratosis 12/05/2008 02/01/2014 Contact dermatitis and other eczema, due to unspecified cause 12/05/2008 02/01/2014 Actinic keratosis 11/09/2007 03/05/2024 Other chronic dermatitis due to solar radiation 11/09/2007 02/01/2014 Scar condition and fibrosis of skin 11/09/2007 02/01/2014 Synovitis and tenosynovitis, unspecified 08/22/2007 03/05/2024 Benign neoplasm of skin of o ther and unspecified parts of face 10/14/2003 02/01/2014 Mixed hyperlipidemia 022 documented as of this encounter (statuses as of 03/05/2024) [facility] History of Past illness Narrative* Problem Noted Date Resolved Date Hypertensive heart disease w ith stage 3 chronic kidney disease 08/22/2020 08/22/2020 Acquired hypothyroidism 09/12/2015 08/22/20 20 Left shoulder pain 02/28/2014 08/21/2021 Inflamed seborrheic keratosis 12/05/2008 Contact dermatitis and other eczema, due to unspecified cause 12/05/2008 02/01/2014 Other chronic dermatitis due to solar radiation 11/09/2007 02/01/2014 Scar condition and fibrosis of skin 11/09/2007 02/01/2014 Benign neoplasm of skin of o ther and unspecified parts of face 10/14/2003 02/01/2014 documented as of this encounter (statuses as of 07/23/2022) [facility] History of Past illness Narrative* Problem Noted Date Resolved Date Hypertensive heart disease w ith stage 3 chronic kidney disease 08/22/2020 08/22/2020 Acquired hypothyroidism 09/12/2015 08/22/20 20 Left shoulder pain 02/28/2014 08/21/2021 Inflamed seborrheic keratosis 12/05/2008 Contact dermatitis and other eczema, due to unspecified cause 12/05/2008 02/01/2014 Other chronic dermatitis due to solar radiation 11/09/2007 02/01/2014 Scar condition and fibrosis of skin 11/09/2007 02/01/2014 Benign neoplasm of skin of o ther and unspecified parts of face 10/14/2003 02/01/2014 Mixed hyperlipidemia 08/23/2022 documented as of this encounter (statuses as of 09/09/2022) [facility] History of Past illness Narrative* Problem Noted Date Resolved Date Hypertensive heart disease w ith stage 3 chronic kidney disease 08/22/2020 08/22/2020 Acquired hypothyroidism 09/12/2015 08/22/20 20 Left shoulder pain 02/28/2014 08/21/2021 Inflamed seborrheic keratosis 12/05/2008 Contact dermatitis and other eczema, due to unspecified cause 12/05/2008 02/01/2014 Other chronic dermatitis due to solar radiation 11/09/2007 02/01/2014 Scar condition and fibrosis of skin 11/09/2007 02/01/2014 Benign neoplasm of skin of o ther and unspecified parts of face 10/14/2003 02/01/2014 Mixed hyperlipidemia 08/23/2022 documented as of this encounter (statuses as of 10/07/2022) [facility] History of Past illness Narrative* Problem Noted Date Resolved Date Hypertensive heart disease w ith stage 3 chronic kidney disease 08/22/2020 08/22/2020 Acquired hypothyroidism 09/12/2015 08/22/20 20 Left shoulder pain 02/28/2014 08/21/2021 Inflamed seborrheic keratosis 12/05/2008 Contact dermatitis and other eczema, due to unspecified cause 12/05/2008 02/01/2014 Other chronic dermatitis due to solar radiation 11/09/2007 02/01/2014 Scar condition and fibrosis of skin 11/09/2007 02/01/2014 Benign neoplasm of skin of o ther and unspecified parts of face 10/14/2003 02/01/2014 Mixed hyperlipidemia 08/23/2022 documented as of this encounter (statuses as of 12/01/2022) [facility] History of Past illness Narrative* Problem Noted Date Resolved Date Hypertensive heart disease w ith stage 3 chronic kidney disease 08/22/2020 08/22/2020 Acquired hypothyroidism 09/12/2015 08/22/20 20 Left shoulder pain 02/28/2014 08/21/2021 Inflamed seborrheic keratosis 12/05/2008 Contact dermatitis and other eczema, due to unspecified cause 12/05/2008 02/01/2014 Other chronic dermatitis due to solar radiation 11/09/2007 02/01/2014 Scar condition and fibrosis of skin 11/09/2007 02/01/2014 Benign neoplasm of skin of o ther and unspecified parts of face 10/14/2003 02/01/2014 Mixed hyperlipidemia 08/23/2022 documented as of this encounter (statuses as of 02/21/2023) [facility] History of Past illness Narrative* Problem Noted Date Resolved Date Hypertensive heart disease w ith stage 3 chronic kidney disease 08/22/2020 08/22/2020 Acquired hypothyroidism 09/12/2015 08/22/20 20 Left shoulder pain 02/28/2014 08/21/2021 Inflamed seborrheic keratosis 12/05/2008 Contact dermatitis and other eczema, due to unspecified cause 12/05/2008 02/01/2014 Other chronic dermatitis due to solar radiation 11/09/2007 02/01/2014 Scar condition and fibrosis of skin 11/09/2007 02/01/2014 Benign neoplasm of skin of o ther and unspecified parts of face 10/14/2003 02/01/2014 Mixed hyperlipidemia 08/23/2022 documented as of this encounter (statuses as of 03/10/2023) [facility] History of Past illness Narrative* Problem Noted Date Resolved Date Hypertensive heart disease w ith stage 3 chronic kidney disease 08/22/2020 08/22/2020 Acquired hypothyroidism 09/12/2015 08/22/20 20 Left shoulder pain 02/28/2014 08/21/2021 Inflamed seborrheic keratosis 12/05/2008 Contact dermatitis and other eczema, due to unspecified cause 12/05/2008 02/01/2014 Other chronic dermatitis due to solar radiation 11/09/2007 02/01/2014 Scar condition and fibrosis of skin 11/09/2007 02/01/2014 Benign neoplasm of skin of o ther and unspecified parts of face 10/14/2003 02/01/2014 Mixed hyperlipidemia 08/23/2022 documented as of this encounter (statuses as of 03/30/2023) [facility] History of Past illness Narrative* Problem Noted Date Resolved Date Hypertensive heart disease w ith stage 3 chronic kidney disease 08/22/2020 08/22/2020 Acquired hypothyroidism 09/12/2015 08/22/20 20 Left shoulder pain 02/28/2014 08/21/2021 Inflamed seborrheic keratosis 12/05/2008 Contact dermatitis and other eczema, due to unspecified cause 12/05/2008 02/01/2014 Other chronic dermatitis due to solar radiation 11/09/2007 02/01/2014 Scar condition and fibrosis of skin 11/09/2007 02/01/2014 Benign neoplasm of skin of o ther and unspecified parts of face 10/14/2003 02/01/2014 Mixed hyperlipidemia 08/23/2022 documented as of this encounter (statuses as of 05/05/2023) [facility] History of Past illness Narrative* Problem Noted Date Diagnosed Date Resolved Date Hypertensive heart disease w ith stage 3 chronic kidney disease 08/22/2020 08/22/2020 Acquired hypothyroidism 09/12/201507/30 Left shoulder pain 02/28/2014 1 Inflamed seborrheic keratosis 12/05/2008 02/01/2014 Contact dermatitis and other eczema, due to unspecified cause 12/05/2008 02/01/2014 Other chronic dermatitis due to solar radiation 11/09/2007 02/01/2014 Scar condition and fibrosis of skin 11/09/2007 02/01/2014 Benign neoplasm of skin of o ther and unspecified parts of face 10/14/2003 02/01/2014 Mixed hyperlipidemia 022 documented as of this encounter (statuses as of 06/07/2023) [facility] History of Past illness Narrative* Problem Noted Date Diagnosed Date Resolved Date Hypertensive heart disease w ith stage 3 chronic kidney disease 08/22/2020 08/22/2020 Acquired hypothyroidism 09/12/201507/30 Left shoulder pain 02/28/2014 1 Inflamed seborrheic keratosis 12/05/2008 02/01/2014 Contact dermatitis and other eczema, due to unspecified cause 12/05/2008 02/01/2014 Other chronic dermatitis due to solar radiation 11/09/2007 02/01/2014 Scar condition and fibrosis of skin 11/09/2007 02/01/2014 Benign neoplasm of skin of o ther and unspecified parts of face 10/14/2003 02/01/2014 Mixed hyperlipidemia 2 022 documented as of this encounter (statuses as of 06/11/2023) [place] [id number] History of Past illness Narrative* Problem Noted Date Diagnosed Date Resolved Date Hypertensive heart disease w ith stage 3 chronic kidney disease 08/22/2020 08/22/2020 Acquired hypothyroidism 09/12/201507/30 Left shoulder pain 02/28/2014 1 Inflamed seborrheic keratosis 12/05/2008 02/01/2014 Contact dermatitis and other eczema, due to unspecified cause 12/05/2008 02/01/2014 Other chronic dermatitis due to solar radiation 11/09/2007 02/01/2014 Scar condition and fibrosis of skin 11/09/2007 02/01/2014 Benign neoplasm of skin of o ther and unspecified parts of face 10/14/2003 02/01/2014 Mixed hyperlipidemia 2 022 documented as of this encounter (statuses as of 06/16/2023) [address] History of Past illness Narrative* Problem Noted Date Diagnosed Date Resolved Date Hypertensive heart disease w ith stage 3 chronic kidney disease 08/22/2020 08/22/2020 Acquired hypothyroidism 09/12/201507/30 Left shoulder pain 02/28/2014 1 Inflamed seborrheic keratosis 12/05/2008 02/01/2014 Contact dermatitis and other eczema, due to unspecified cause 12/05/2008 02/01/2014 Other chronic dermatitis due to solar radiation 11/09/2007 02/01/2014 Scar condition and fibrosis of skin 11/09/2007 02/01/2014 Benign neoplasm of skin of o ther and unspecified parts of face 10/14/2003 02/01/2014 Mixed hyperlipidemia 022 documented as of this encounter (statuses as of 06/25/2023) [facility] History of Past illness Narrative* Problem Noted Date Diagnosed Date Resolved Date Hypertensive heart disease w ith stage 3 chronic kidney disease 08/22/2020 08/22/2020 Acquired hypothyroidism 09/12/201507/30 Left shoulder pain 02/28/2014 1 Inflamed seborrheic keratosis 12/05/2008 02/01/2014 Contact dermatitis and other eczema, due to unspecified cause 12/05/2008 02/01/2014 Other chronic dermatitis due to solar radiation 11/09/2007 02/01/2014 Scar condition and fibrosis of skin 11/09/2007 02/01/2014 Benign neoplasm of skin of o ther and unspecified parts of face 10/14/2003 02/01/2014 Mixed hyperlipidemia 022 documented as of this encounter (statuses as of 07/15/2023) [facility] History of Past illness Narrative* Problem Noted Date Diagnosed Date Resolved Date Hypertensive heart disease w ith stage 3 chronic kidney disease 08/22/2020 08/22/2020 Acquired hypothyroidism 09/12/201507/30 Left shoulder pain 02/28/2014 1 Inflamed seborrheic keratosis 12/05/2008 02/01/2014 Contact dermatitis and other eczema, due to unspecified cause 12/05/2008 02/01/2014 Other chronic dermatitis due to solar radiation 11/09/2007 02/01/2014 Scar condition and fibrosis of skin 11/09/2007 02/01/2014 Benign neoplasm of skin of o ther and unspecified parts of face 10/14/2003 02/01/2014 Mixed hyperlipidemia 022 documented as of this encounter (statuses as of 08/03/2023) [facility] History of Past illness Narrative* Problem Noted Date Diagnosed Date Resolved Date Hypertensive heart disease w ith stage 3 chronic kidney disease 08/22/2020 08/22/2020 Acquired hypothyroidism 09/12/201507/30 Left shoulder pain 02/28/2014 1 Inflamed seborrheic keratosis 12/05/2008 02/01/2014 Contact dermatitis and other eczema, due to unspecified cause 12/05/2008 02/01/2014 Other chronic dermatitis due to solar radiation 11/09/2007 02/01/2014 Scar condition and fibrosis of skin 11/09/2007 02/01/2014 Benign neoplasm of skin of o ther and unspecified parts of face 10/14/2003 02/01/2014 Mixed hyperlipidemia 022 documented as of this encounter (statuses as of 08/30/2023) [facility] History of Past illness Narrative* Problem Noted Date Diagnosed Date Resolved Date Hypertensive heart disease w ith stage 3 chronic kidney disease 08/22/2020 08/22/2020 Acquired hypothyroidism 09/12/201507/30 Left shoulder pain 02/28/2014 1 Inflamed seborrheic keratosis 12/05/2008 02/01/2014 Contact dermatitis and other eczema, due to unspecified cause 12/05/2008 02/01/2014 Other chronic dermatitis due to solar radiation 11/09/2007 02/01/2014 Scar condition and fibrosis of skin 11/09/2007 02/01/2014 Benign neoplasm of skin of o ther and unspecified parts of face 10/14/2003 02/01/2014 Mixed hyperlipidemia 022 documented as of this encounter (statuses as of 09/16/2023) [facility] Diagnosis Lung nodules- Primary Other diseases of lung, not elsewhere classified [facility] Bronchiectasis without complication (HCC)- Primary 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 Bronchiectasis without complication (HCC)- Primary 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 documented in this encounter [facility]* Diagnosis Essential hypertension, benign documented in this encounter [facility]* Diagnosis Bronchiectasis without complication (HCC)- Primary Nasal congestion Other diseases of nasal cavity and sinuses documented in this encounter [facility]* Diagnosis Acute cough- Primary Essential hypertension, benign Bronchiectasis without complication (HCC) Bronchiectasis without acute exacerbation URI, acute Acute upper respiratory infections of unspecified site documented in this encounter [facility] note* Diagnosis Bronchiectasis without complication (HCC)- Primary documented in this encounter [facility] note* Diagnosis Left ear pain- Primary Otalgia, unspecified documented in this encounter [facility] note* Diagnosis Hypertensive chronic kidney disease with stage 1 through stage 4 chronic kidney disease, or unspecified chronic kidney disease- Primary Essential hypertension, benign Bronchiectasis without complication (HCC) Bronchiectasis without acute exacerbation Lung nodules Other nonspecific abnormal finding of lung field Stage 3 chronic kidney disease, unspecified whether stage 3a or 3b CKD (HCC) Acquired hypothyroidism Unspecified hypothyroidism Fatigue, unspecified type Adjustment disorder with other symptom documented in this encounter [facility] note* Diagnosis Fatigue, unspecified type- Primary Personal history of skin cancer Personal history of other malignant neoplasm of skin Skin lesion Unspecified disorder of skin and subcutaneous tissue Anxiety with depression documented in this encounter [facility] note* Diagnosis History of lumbar fusion- Primary Back pain with left-sided radiculopathy documented in this encounter [facility] note* Diagnosis History of lumbar fusion- Primary Back pain with left-sided radiculopathy documented in this encounter [facility] note* Diagnosis Bronchiectasis with acute exacerbation (HCC)- Primary Bronchiectasis with acute exacerbation Sore throat Acute pharyngitis documented in this encounter [facility] note* Diagnosis Bronchiectasis without complication (HCC)- Primary MORAN (dyspnea on exertion) Other dyspnea and respiratory abnormality 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 documented in this encounter [facility] note* Diagnosis Essential hypertension, benign documented in this encounter [facility] note* Diagnosis Skin infection- Primary Unspecified local infection of skin and subcutaneous tissue documented in this encounter [facility] noteNo assessment information availableW[facility]: Evaluation note* Diagnosis Phlebitis- Primary Phlebitis and thrombophlebitis of unspecified site documented in this encounter [facility] note* Diagnosis Depression Depressive disorder, not elsewhere classified documented in this encounter [facility] note* Diagnosis Bronchiectasis without complication (HCC)- Primary Persistent asthma without complication, unspecified asthma severity MORAN (dyspnea on exertion) Other dyspnea and respiratory abnormality documented in this encounter [facility] note* Diagnosis Essential hypertension, benign documented in this encounter [facility] note* Diagnosis Bronchiectasis without complication (HCC)- Primary Bronchiectasis without acute exacerbation Essential hypertension, benign Hypertensive chronic kidney disease with stage 1 through stage 4 chronic kidney disease, or unspecified chronic kidney disease Lung nodules Other nonspecific abnormal finding of lung field Stage 3 chronic kidney disease, unspecified whether stage 3a or 3b CKD (HCC) Acquired hypothyroidism Unspecified hypothyroidism SOB (shortness of breath) Shortness of breath Need for influenza vaccination Need for prophylactic vaccination and inoculation against influenza documented in this encounter [facility] note* Diagnosis 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- Primary documented in this encounter [facility] note* Diagnosis SOB (shortness of breath)- Primary Shortness of breath 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 documented in this encounter [facility] note* Diagnosis Bronchiectasis without complication (HCC)- Primary Bronchiectasis without acute exacerbation Essential hypertension, benign Acquired hypothyroidism Unspecified hypothyroidism Personal history of skin cancer Personal history of other malignant neoplasm of skin Fatigue, unspecified type Stage 3 chronic kidney disease, unspecified whether stage 3a or 3b CKD (HCC) Benign essential tremor Essential and other specified forms of tremor documented in this encounter [facility] note* Diagnosis Neoplasm of uncertain behavior- Primary Neoplasm of uncertain behavior, site unspecified Neoplasm of uncertain behavior Neoplasm of uncertain behavior, site unspecified documented in this encounter [facility] note* Diagnosis Neoplasm of uncertain behavior of skin of abdomen- Primary Neoplasm of uncertain behavior of skin documented in this encounter [facility] note* Diagnosis Neoplasm of uncertain behavior Neoplasm of uncertain behavior, site unspecified documented in this encounter [facility] note* Diagnosis Bronchiectasis without complication (HCC)- Primary 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 Chronic cough Cough MORAN (dyspnea on exertion) Other dyspnea and respiratory abnormality documented in this encounter [facility] note* Diagnosis Subcutaneous mass of abdominal wall Screening for colon cancer Special screening for malignant neoplasms, colon documented in this encounter [facility] note* Diagnosis Neoplasm of uncertain behavior of skin of abdomen- Primary Neoplasm of uncertain behavior of skin Anxiety with depression documented in this encounter [facility] note* Diagnosis Essential hypertension, benign documented in this encounter [facility] note* Diagnosis Depression Depressive disorder, not elsewhere classified documented in this encounter [facility] note* Diagnosis Bronchiectasis with acute exacerbation (HCC) Bronchiectasis with acute exacerbation documented in this encounter [facility] note* Diagnosis Chest discomfort Other chest pain documented in this encounter [facility] note* Diagnosis Bronchitis Bronchitis, not specified as acute or chronic documented in this encounter [facility] note* Diagnosis Essential hypertension, benign- Primary Bronchiectasis without complication (HCC) Bronchiectasis without acute exacerbation Stage 3 chronic kidney disease, unspecified whether stage 3a or 3b CKD (HCC) Acquired hypothyroidism Unspecified hypothyroidism H/O NOSE//PERS HX MALIG SKIN MELANOMA Personal history of malignant melanoma of skin Fatigue, unspecified type Immunodeficiency (HCC) Unspecified immunity deficiency Anxiety with depression documented in this encounter [facility] note* Diagnosis Acquired hypothyroidism- Primary Unspecified hypothyroidism documented in this encounter [facility] note* Diagnosis Primary localized osteoarthrosis, lower leg- Primary Primary localized osteoarthrosis of right lower leg Essential hypertension Unspecified essential hypertension Hyperlipidemia Other and unspecified hyperlipidemia Hypothyroidism Unspecified hypothyroidism Osteoporosis Unspecified osteoporosis 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 Bronchiectasis without complication (HCC)- Primary Physical deconditioning Muscular wasting and disuse atrophy, not elsewhere classified MORAN (dyspnea on exertion) Other dyspnea and respiratory abnormality Chronic cough Cough documented in this encounter [facility] note* Diagnosis Acute bronchitis with chronic obstructive pulmonary disease (COPD) (HCC) (HCC)- Primary Obstructive chronic bronchitis with acute bronchitis Stage 3 chronic kidney disease, unspecified whether stage 3a or 3b CKD (HCC) Essential hypertension, benign Hypothyroidism due to medication Hyperlipidemia, mixed Mixed hyperlipidemia documented in this encounter [facility] note* Diagnosis Primary localized osteoarthrosis, lower leg- Primary Primary localized osteoarthrosis of right lower leg Essential hypertension Unspecified essential hypertension Hyperlipidemia Other and unspecified hyperlipidemia Hypothyroidism Unspecified hypothyroidism Osteoporosis Unspecified osteoporosis 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 Bronchiectasis without complication (HCC) documented in this encounter [facility] note* Diagnosis Primary localized osteoarthrosis, lower leg- Primary Primary localized osteoarthrosis of right lower leg Essential hypertension Unspecified essential hypertension Hyperlipidemia Other and unspecified hyperlipidemia Hypothyroidism Unspecified hypothyroidism Osteoporosis Unspecified osteoporosis 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 Bronchiectasis without complication (HCC)- Primary MORAN (dyspnea on exertion) Other dyspnea and respiratory abnormality Bronchiectasis without complication (HCC) MORAN (dyspnea on exertion) Other dyspnea and respiratory abnormality documented in this encounter [facility] note* Diagnosis Essential hypertension, benign- Primary Bronchiectasis without complication (HCC) Bronchiectasis without acute exacerbation Irritable bowel syndrome with both constipation and diarrhea Acquired hypothyroidism Unspecified hypothyroidism H/O NOSE//PERS HX MALIG SKIN MELANOMA Personal history of malignant melanoma of skin Immunodeficiency (HCC) Unspecified immunity deficiency Depression Depressive disorder, not elsewhere classified Headache, unspecified headache type Neck pain Cervicalgia Stage 3 chronic kidney disease, unspecified whether stage 3a or 3b CKD (HCC) Skin lesion Unspecified disorder of skin and subcutaneous tissue Current mild episode of major depressive disorder without prior episode documented in this encounter [facility] note* Diagnosis Headache, unspecified headache type Neck pain Cervicalgia documented in this encounter [facility] note* Diagnosis Depression Depressive disorder, not elsewhere classified documented in this encounter [facility] note* Diagnosis Primary localized osteoarthrosis, lower leg- Primary Primary localized osteoarthrosis of right lower leg Essential hypertension Unspecified essential hypertension Hyperlipidemia Other and unspecified hyperlipidemia Hypothyroidism Unspecified hypothyroidism Osteoporosis Unspecified osteoporosis 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 Bronchiectasis without complication (HCC)- Primary MORAN (dyspnea on exertion) Other dyspnea and respiratory abnormality Chronic cough Cough 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 [address] Referral ID Status Reason Start Date Expiration Date Visits Requested Visits Authorized [id number] Authorized Specialty Services Required/Pat rodrint's Best Interest 10/21/[address] [facility] for referral (narrative)* Diagnostic Procedure Only (Urgent) - Closed Specialty Diagnoses / Procedures Referred By Contac t Referred To Contact US IMAGING Diagnoses Neoplasm of uncertain behavior Procedures US PELVIS LTD US PELVIC NONOBSTETRIC IMAGE DCMTN LIMITED/F/U Maricel Kennedy APRN.ELECTROMYOGRAPHIC TECHNICIAN [address] [place] [address] [place] [address] Referral ID Status Reason Start Date Expiration Date V isits Requested Visits Authorized [id number] Closed Auto-Generate d Referral 04/24/2024 05/24/2025 1 1 Electronically signed by Maricel Kennedy ROBOTICS TECHNICIAN.ELECTROMYOGRAPHIC TECHNICIAN at 04/24/2024 1:59 PM EDT [facility] for referral (narrative)* Diagnostic Procedure Only (Urgent) - Closed Specialty Diagnoses / Procedures Referred By Contac t Referred To Contact US IMAGING Diagnoses Neoplasm of uncertain behavior Procedures US PELVIS LTD US PELVIC NONOBSTETRIC IMAGE DCMTN LIMITED/F/U Maricel Kennedy APRN.ELECTROMYOGRAPHIC TECHNICIAN [address] [place] [address] [place] [address] Referral ID Status Reason Start Date Expiration Date V isits Requested Visits Authorized [id number] Closed Auto-Generate d Referral 04/24/2024 05/24/2025 1 1 Electronically signed by Maricel Kennedy ROBOTICS TECHNICIAN.ELECTROMYOGRAPHIC TECHNICIAN at 04/24/2024 2:57 PM EDT [facility] for visit Narrative* Diagnostic Procedure Only (Urgent) - Closed Specialty Diagnoses / Procedures Referred By Contac t Referred To Contact US IMAGING Diagnoses Neoplasm of uncertain behavior Procedures US PELVIS LTD US PELVIC NONOBSTETRIC IMAGE DCMTN LIMITED/F/U Maricel Kennedy ROBOTICS TECHNICIAN.ELECTROMYOGRAPHIC TECHNICIAN [address] [place] [address] [place] [address] Referral ID Status Reason Start Date Expiration Date V isits Requested Visits Authorized [id number] Closed Auto-Generate d Referral 04/24/2024 05/24/2025 [facility] Procedure Only (Routine) - Closed Specialty Diagnoses / Procedures Referred By Contac t Referred To Contact XR IMAGING Diagnoses Headache, unspecified headache type Neck pain Procedures XR CERV OTHER 4V AP/LAT/OBL RADEX SPINE CERVICAL 4 OR 5 VIEWS Herminio Whitman MD [address] [place] [address] Phone: tel: fax: [place] [id number] Referral ID Status Reason Start Date Expiration Date V isits Requested Visits Authorized [id number] Closed Auto-Generate d Referral 03/15/2025 04/14/2026 1 1 [facility] Assessments Diagnosis Preop examination - Primary Unspecified pre-operative examination Primary osteoarthritis of ri ght knee Essential hypertension Unspecified essential hypertension Diagnosis Primary localized osteoarthr osis of right lower leg Essential hypertension Unspecified essential hypertension Hyperlipidemia Other and unspecified hyperlipidemia Hypothyroidism Unspecified hypothyroidism Osteoporosis Unspecified osteoporosis Coronary artery disease invo lving yocha dehe coronary artery of yocha dehe heart without angina pectoris Diagnosis Foraminal stenosis of lumbar region History of lumbar fusion Spondylolisthesis, lumbar region Diagnosis Pre-op examination Spinal stenosis, lumbar region, without neurogenic claudication Essential hypertension Unspecified essential hypertension Hyperlipidemia, unspecified hyperlipidemia type Diagnosis Spinal stenosis of lumbar region with neurogenic claudication Diagnosis History of lumbar fusion- Primary Spondylolisthesis, lumbar region Lumbar foraminal stenosis Diagnosis History of lumbar fusion- Primary Foraminal stenosis of lumbar region Spondylolisthesis, lumbar region Diagnosis Pre-op exam- Primary Spinal stenosis, lumbar region, without neurogenic claudication Essential hypertension Unspecified essential hypertension Hyperlipidemia, unspecified hyperlipidemia type Diagnosis Acute postoperative pain Other acute postoperative pain Lumbar stenosis Spinal stenosis of lumbar region Discharge Instructions * Bettina Duncan CNP - 11/30/2017 KNEE REPLACEMENT INSTRUCTIONS Refer to the Knee Replacement Guide for more information: Activity -Use your walker at all times. -Do your knee exercises each day as ordered by your doctor. -Wear elastic stockings on both legs for 30 days. May remove for bathing. -Walk 3-4 times each day, gradually increasing your distance -No driving until approved by your doctor. -For swelling of the legs, elevate your legs on pillows so your (toes are above the heart) -Sit in a chair no more than 1 hour at a time. Incision Care -Keep incision clean and dry - Do not put powder, lotions, creams, or ointments on your incision. -No tub baths, hot tubs or swimming until approved by your doctor. -You may shower. -A small amount of drainage is expected. -Apply ice as needed for swelling and/or comfort, especially after exercises. -For comfort, you can put a dressing over the incision and secure it with the elastic stockings. Call your doctor if you notice: -Signs of infection: redness, swelling, odor or drainage from incision, fever above 101?F, chills -Edges of incision -Sudden, severe pain not relieved by medication -Loss or appetite, nausea or vomiting -Inability to urinate for more than 8 hours -You have any other questions or concerns Call the doctor right away if you: -Severe sudden pain at your knee -Inability to bear weight -Have excessive calf pain especially when walking -Have swelling, redness / bruising or sore calf when squeezed -Have chest pain or shortness of breath, call 911 PT Orders -A&PROM -SLR -WBAT gait training WOUND CARE -Cleanse with soap and water. Pat dry. Otherwise keep clean and dry. -Keep ABD (5x9) dressing in place to cover incision if drainage is present. -Wear Saran wrap / Press 'n' seal for first 72 hours while showering. If no drainage present, you may then shower with incision uncovered. CONSTIPATION -Repetitive use of narcotic pain medicine after surgery is a very common cause of constipation. Thefollowing instructions are recommended: -Drink plenty of fluids. Eight glasses of water or juice per day are encouraged. -Start with Senokot-S 8.6-50 mg ([id number]). This is a laxative/stool softener combination. Take 1-2 tablets twice a day until bowel movements are achieved. -If no success, add Milk of Magnesia (jjnh-fhf-weqkwwa). This is a laxative. Take 30-60 mL 1-2 times per day. Take no more than 60 mL in a 24-hr period. -If still no success, add Magnesium Citrate (ulrz-sez-xpomngy). This is a strong laxative. Take 1/2-1 bottle 1-2 times per day. Take no more than one bottle in a 24-hr period. -If still no success, add Fleets enema (cyiq-skv-twclshf). Follow instructions on package. -If still no success, call your primary care physician. PAIN MEDICINES (GENERAL) -You are being discharged home on opioid pain medicine. This may include Oxycodone, Hydrocodone, orDilaudid. -There is a new FDA Black Box warning for all opioid pain medication: Opioids are powerful narcoticpain medicines that can help manage pain when other treatments and medicines are not able to provide enough pain relief. However, even when used properly, opioids also carry serious risks, and they can be misused and abused, causing addiction, overdose, and . -These opioid medications should be used at the lowest dose possible, and for the shortest amount of time possible -If you have been diagnosed with sleep apnea or have been told you may have sleep apnea: Each of these medications can suppress your breathing and make your upper airway more collapsible. This may worsen sleep-disordered breathing, such as sleep apnea. As these medications also suppress your level of consciousness, you may not be able to protect your airway adequately. This may lead to disrupted breathing, suffocation or asphyxiation, and even . Use caution when taking pain medication, andtake the lowest dose possible. Talk to your primary care doctor soon after discharge, and be sure to wear your CPAP if you have been prescribed one. -Tell your doctor and pharmacist about ALL drugs you are taking. Do not take any previous medicinesunless your doctor is aware. This includes medicines or drugs that are prescribed, ryvc-xhx-xzhhmil, or herbal supplements. -Do not mix these pain medicines with alcohol or sedating drugs, such as pills to help anxiety or sleeping, or illegal drugs. This greatly increases the risk for dangerous overdose. -Do not drive or do other tasks that require you to be alert until you see how this drug effects you. -Call your doctor if you are concerned and are having any of the following common side effects which can include: upset stomach, constipation, dizziness and sleepiness -You and your family should be aware of the signs of overdose. Call 911 right away if you notice slurred or drawling speech, poor balance, nodding off during conversation or activity or slowed, difficulty breathing. -If you misuse or abuse pain medicines you can become addicted to them. It is important to openly discuss your concerns with your doctor. -If you have been regularly taking a pain medicine for 7 days or more, you may experience a withdrawal reaction if you suddenly stop taking the medicine. Withdrawal symptoms such as flu like symptoms do not mean you are addicted- just that you stopped the medicine too quickly. Contact your doctorfor direction on how to slowly stop this medicine. -Keep your medicine securely stored at home. Store medicines where children can t see or reach them, for example, in a locked box or cabinet. -If you have left over medicine, a take-back program for disposal is a good way to remove the unwanted or unused medicines from the home and reduce the chance that others may accidentally take the medicine. Contact your [facility] or [facility] government's household trash and recycling service to see if there is a medicine take-back program in your community and learn about any special rules regarding which medicines can be taken back. You can also talk to your pharmacist to see if he or she knows of other medicine disposal programs in your area. in this encounter* Discharge Instr - AVS First Page* Jessie Romero CNP - 12/08/2019 3:00 PM EST BACK SURGERY, HOME CARE INSTRUCTIONS Activity -Rest often -Take short walks. Avoid curbs or uneven terrain -Do not bend at the waist. Do not lift over ten pounds -Avoid sitting for over one hour at a time -No back exercises until cleared by your doctor -Wear brace when out of bed -No driving until two weeks after surgery and no longer taking narcotic pain medications. -You may ride for short trips. Always wear a seat belt. -You may climb stairs slowly. Special Care -If you use nicotine in any form- patches, smoking, electronic or chewing-It delays healing and increases your risk for infection -If you are a Diabetic- Check blood sugar often and call your family doctor if it s out of range. Surgery can cause high blood sugar -If you use CPAP at home when sleeping, continue do so particularly after taking pain medications. Incision Care -Keep your incision clean and dry -Wash your hands with soap and water after using the bathroom -Change your clothes over the incision daily and more often if the wound is draining -Do not soak (tub bath or swimming) until incision is healed-generally 4 weeks. -Remove your hospital dressing tomorrow morning, and leave your incision uncovered at home under your clothing. -If your incision is closed with sutures or coby: Do not get incision wet until the sutures/coby are removed 12-14 days after surgery, call your surgeon s office to make a removal appointment. -Wash the skin around your incision daily with mild soap and water, rinse and pat dry. -When showering, until allowed to get incision wet, cover incision with plastic wrap, pat dry any moisture after removing wrap Pain Control: Much of the pain after back surgery is from the muscles that were moved during your surgery. -Use the muscle relaxant medication you were prescribed after your surgery -Avoid remaining in the same position for long periods, this causes your muscles to tighten. -While it may be painful to change position, get up and walk short distances multiple times a day to keep your muscles loose. -Constipation contributes to back and abdominal pain. As long as you are taking narcotic pain medication, you should also be taking stool softners. These are available without a prescription. Senna-Sis recommended- 1 or 2 tablets twice a day. Additionally a laxative may be needed if you are not having daily BMs- Depending on your preference you can use: Dulcalax pills, or a bulk forming laxativethat you drink- such as Miralax, rectal suppositories (Dulcolax) or a Fleets Enema. Use hot or cold packs to improve your pain: Use small bags of ice wrapped in a clean towel or pillowcase or a bag of frozen peas wrapped in a pillowcase on either side of your incision applied for 15-20 minutes followed by at least a 30 minuterest period. Do not put the ice bags directly over your incision. After 48 hours from your surgical time, if you find cold packs don't help, you can use warm packs (see rice sock information below) wrapped in a clean towel or pillowcase on either side of your incision applied for 15-30 minutes. Do not put the warm pack directly over your incision. Rice socks: Place 2 cups of uncooked long grained rice in a tube sock. Tie open end of sock. Place in microwaveon medium heat for 60 seconds. Wait 60 minutes to reheat in the microwave. Narcotic Pain Medication Use After Spinal Surgery -You have been given prescriptions for narcotic pain medication to last until your followup appt with your surgeon -You may have received more than one prescription, with different dates that they can be filled. -If you have been given multiple prescriptions we recommend that you give your pharmacy all of the prescriptions as soon as you are discharged. When you take them in, discuss with the staff that you have more than one prescription, with fill dates in the future to treat your post operative pain. Ifyou lose a prescription, we can not give you a new one. -Use the first prescription and then have the later prescriptions filled if needed before your follow up appt with your surgeon. -Be aware that pharmacies in [place] can no longer fill prescriptions more than 14 days after the fill(start) date written on the prescription. Safe use of narcotic pain medication: To avoid becoming dependent on your narcotic pain medication, you must only take it when needed to allow you to get up, move, and to do the activities that are permitted after your surgery. -You will not be pain free immediately after your surgery. -As time goes by after your surgery, reduce the number of pills you take at one time and then work to increase the time between taking pills. -You may find it useful to write down and keep a record of when you take your pain medication, as it can be difficult to remember the time or how many you took while on pain medication. -Continue to use non-narcotic pain control methods as well to reduce your need for narcotic pain medication -It is recommended that you always store narcotic pain medication in a secure location to prevent theft. IF you have narcotic pills left over after your recovery it is recommended that you flush themdown a toilet or return them to the pharmacy for disposal (check with pharmacy first, not all can do this) -If you feel that you need a medication refill, you must contact your surgeon's office. The prescriber of your homegoing medications is hospital based and can not provide outpatient refills. Call Your Doctor If You Have -Questions, uncontrolled pain, new weakness or changes in sensation -Signs of infection (redness, swelling, drainage, warmth, increased pain, fever >101,chills) -Nausea, vomiting documented in this encounter Reason for Referral Status Reason Specialty Diagnoses / Procedures Referre d By Contact Referred To Contact Closed Radiology Diagnoses Foraminal stenosis of lumbar region History of lumbar fusion Spondylolisthesis, lumbar region Procedures CT Lumbar Spine Without Contrast 3D CT Lumbar Spine Without Contrast Mariana Murillo MD [address] [place] [address] [address] [place] [address] Status Reason Specialty Diagnoses / Procedures Referred By Contact Referred To Contact Pending Review Radiology Diagnoses Foraminal stenosis of lumbar region History of lumbar fusion Spondylolisthesis, lumbar region Procedures CT Lumbar Spine Without Contrast Mariana Murillo MD [address] [place] [address] [address] [place] [id number] Specialty Diagnoses / Procedures Referred By Contac t Referred To Contact Dermatology Diagnoses Personal history of skin cancer Skin lesion Procedures CONSULT TO DERMATOLOGY Herminio Whitman MD [address] [place] [address] Referral ID Status Reason Start Date Expiration Date Visits Requested Visits Authorized [id number] Ref Not Required PCP Requested Referral 03/30/2023 03/29/2024 1 1 Specialty Diagnoses / Procedures Referred By Contac t Referred To Contact Radiology Diagnoses History of lumbar fusion Back pain with left-sided radiculopathy Procedures MR Lumbar Spine Without Contrast Mariana Murillo MD [address] [facility] [address] [place] [id number] Referral ID Status Reason Start Date Expiration Date V isits Requested Visits Authorized [id number] New Request 04/11/2023 04/10/2024 1 1 Specialty Diagnoses / Procedures Referred By Contac t Referred To Contact Physical Therapy / Rehabilitation Diagnoses History of lumbar fusion Back pain with left-sided radiculopathy Della Mitchell PA-C [facility] [address] [place] [address] Referral ID Status Reason Start Date Expiration Date Visits Requested Visits Authorized [id number] Authorized Specialty Services Required/Pat ient's Best Interest 05/04/2023 05/03/2024 12 12 Specialty Diagnoses / Procedures Referred By Contac t Referred To Contact Pulmonary Rehab Diagnoses Bronchiectasis without complication (HCC) Persistent asthma without complication, unspecified asthma severity Karen Goncalves MD [address] [place] [address] Referral ID Status Reason Start Date Expiration Date Visits Requested Visits Authorized [id number] Authorized Specialty Services Required/Pat ient's Best Interest 08/02/2023 08/01/2024 24 24 Specialty Diagnoses / Procedures Referred By Contac t Referred To Contact Cardiology Diagnoses SOB (shortness of breath) Procedures CONSULT TO CARDIOLOGY OFFICE/OUTPATIENT [facility] 60-74 MINUTES Herminio Whitman MD [address] [place] [address] Referral ID Status Reason Start Date Expiration Date Visits Requested Visits Authorized [id number] Pending Review PCP Requested Referral 3 10/09/2024 1 1 Specialty Diagnoses / Procedures Referred By Contac t Referred To Contact [facility] Diagnoses SOB (shortness of breath) Procedures ECG COMPLETE ECG ROUTINE ECG W/LEAST 12 LDS W/I&R Herminio Whitman MD [address] [place] [address] [facility] [address] [place] [address] Referral ID Status Reason Start Date Expiration Date Visits Requested Visits Authorized [id number] Pending Review Auto-Generat ed Referral 3 10/09/2024 1 1 Specialty Diagnoses / Procedures Referred By Contac t Referred To Contact Radiology Diagnoses 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 SOB (shortness of breath) Procedures NM Myocardial Perfusion Multiple SPECT [facility] Renteria MD [facility] [facility] [address] [place] [address] Referral ID Status Reason Start Date Expiration Date V isits Requested Visits Authorized [id number] New Request 10/18/2023 10/17/2024 4 4 Specialty Diagnoses / Procedures Referred By Moreno franco Referred To Contact General Surgery Diagnoses Neoplasm of uncertain behavior of skin of abdomen Procedures CONSULT TO GENERAL SURGERY OFFICE/OUTPATIENT NEW HIGH MDM 60 MINUTES Maricel Kennedy, ROBOTICS TECHNICIAN.ELECTROMYOGRAPHIC TECHNICIAN [address] [place] [address] Referral ID Status Reason Start Date Expiration Date Visits Requested Visits Authorized [id number] Authorized PCP Requested Referral 04/24/2024 04/24/2025 1 1 Referral ID Status Reason Start Date Expiration Date Visits Requested Visits Authorized [id number] Authorized PCP Requested Referral 05/28/2024 05/21/2025 1 1 Advance Directives No Advanced Directives Records FoundDocuments on File Type Date Recorded Patient Crossing [place] Expl anation Advance Directives and Living Will Latest Code Status on File Code Status Date Activated Date Inactivated Comments Full Code 11/30/2017 6:40 AM 11/30/2017 10:31 AM Documents on File Type Date Recorded Patient Crossing [place] Expl anation Advance Directives and Livin g Will 05/16/2019 9:40 AM Documents on File Type Date Recorded Patient Crossing [place] Expl anation Advance Directives and Livin g Will 05/16/2019 9:40 AM Latest Code Status on File Code Status Date Activated Date Inactivated Comments Full Code 11/30/2017 6:40 AM 11/30/2017 10:31 AM Documents on File Type Date Recorded Patient Crossing [place] Expl anation Advance Directives and Livin g Will 11/23/2019 11:41 AM Documents on File Type Date Recorded Patient Crossing [place] Expl anation Advance Directives and Livin g Will 12/07/2019 5:07 AM Latest Code Status on File Code Status Date Activated Date Inactivated Comments Full Code 12/07/2019 10:38 AM Full Code 11/30/2017 6:40 AM 11/30/2017 10:31 AM Documents on File Type Date Recorded Patient Crossing [place] Expl anation Advance Directives and Livin g Will 09/26/2019 9:06 AM Documents on File Type Date Recorded Patient Crossing [place] Expl anation Advance Directives and Livin g Will 12/07/2019 5:07 AM Latest Code Status on File Code Status Date Activated Date Inactivated Comments Full Code 12/07/2019 10:38 AM Full Code 11/30/2017 6:40 AM 11/30/2017 10:31 AM Latest Code Status on File Date Activated Date Inactivated Comments 12/07/2019 10:38 AM Full Code Date Activated Date Inactivated Comments 11/30/2017 6:40 AM 11/30/2017 10:31 AM Latest Code Status on File Code Status Date Activated Date Inactivated Comments Full Code 12/07/2019 10:38 AM Code Status History Code Status Date Activated Date Inactivated Comments Full Code 11/30/2017 6:40 AM 11/30/2017 10:31 AM Latest Code Status on File Code Status Date Activated Date Inactivated Comments Full Code 12/07/2019 10:38 AM Code Status History Code Status Date Activated Date Inactivated Comments Full Code 11/30/2017 6:40 AM 11/30/2017 10:31 AM Advance Directive Response Recorded Date/ Time Living Will No June 11, 2023 3:14pm Power of Head Waitress No June 11 3:14pm Date Activated Date Inactivated Comments 12/07/2019 10:38 AM Date Activated Date Inactivated Comments 11/30/2017 6:40 AM 11/30/2017 10:31 AM Date Activated Date Inactivated Comments 12/07/2019 10:38 AM Date Activated Date Inactivated Comments 11/30/2017 6:40 AM 11/30/2017 10:31 AM History of Present Illness * Queenie Villanueva RN - 09/17/2019 9:59 AM EDT COMPLEX DISCHARGE Date: 09/17/2019 Time: 9:59 AM Patient Name: Jayashree Ferguson Date of : 1940 Sex: Female NS CM reviewed patient chart from work que referral. CM answering consult for optimization of care and resources for upcoming spinal fusion. CM will continue to follow patient. documented in this encounter* Mariana Murillo MD - 01/02/2020 1:54 PM EST See Dictation. documented in this encounter* Mariana Murillo MD - 2019 7:09 PM EDT See Dictation. documented in this encounter* Mariana Murillo MD - 09/12/2019 1:39 PM EDT See Dictation. documented in this encounter* Mariana Murillo MD - 05/07/2019 1:42 PM EDT See Dictation. documented in this encounter* Mariana Murillo MD - 10/03/2019 3:45 PM EST See Dictation. documented in this encounter* Zahida Huang RN - 12/09/2019 11:35 AM EST After Visit Summary reviewed with patient and/or family including the diagnosis, medications prescribed on discharge, importance of follow-up appointment with listed providers, signs and symptoms of infection, incision line care, when to remove hospital dressing, importance of bowel regimen, and any activity restrictions. Written material provided and questions answered by RN. Prescriptions givento patient. Patient verbalized understanding of discharge instructions. Patient discharged with family to home. * Awa Mcgraw, PT - 12/09/2019 11:25 AM EST Physical Therapy PHYSICAL THERAPY TREATMENT and discharge NOTE Skilled Therapy Needs After Discharge Anticipate Resolution of Current Assessment Limitations Including: Pain Are Skilled Therapy Services Needed After Discharge: No DME Recommendation: None Rehab Potential: Good, For goals Outcomes Measures Prior Function - Basic Mobility Raw Score: 24 Points Prior Function - Basic Mobility % Impaired: 0% functionally impaired AM-PAC - Basic Mobility Raw Score: 18 Points AM-PAC - Basic Mobility % Impaired: 40.47% functionally impaired Therapy Precautions Orthotic Devices: Yes Spine / Trunk: LSO General Rehab Precautions: Back, Fall risk Balance Sitting Balance - Static: (supervision) Standing Balance - Static: (SBA without UE support) Skilled Intervention: verbal cues for safety. physcial assist given as needed. review of back precautions, pt able to verbalize 3/3. education given on car transfer technique. Bed Mobility Rolling: Supervision Supine to Sit: Supervision Sit to Supine: Supervision Skilled Intervention: verbal cues for safety. simulation of home setup. Transfers Sit to Stand: Stand by assistance Supervisor Pipeline: 1 person, Gait belt Skilled Intervention: verbal cues for safety. physical assist as needed Gait/Locomotion Gait Assistance: Supervision, Stand by assistance Assistive Device: None Distance: 500 Feet Pattern: R decreased step length, L decreased step length, Decreased arm swing(decreased speed. no LOB. no SOB) Stair Management Technique: One rail L, Alternating pattern Stair Management Assistance: Stand by assistance Number of Stairs: 12 Skilled Intervention: verbal cues for safety. physical assist given as needed. professional judgement used to trial ambulation without device, no LOB or deficits noted. professional judgement used for activity progression and tolerance. education given on stair negotiation and managmene.t Home Living Type of Home: House Home Layout: Multi-level, Laundry in basement, Bed/bath upstairs, Stairs to enter with rails, Stairs to enter without rails Bathroom Shower/Tub: Walk-in shower Bathroom Toilet: Raised Bathroom Equipment: Other (Comment)(continuous pickling line pickler to wash feet) Home Equipment: Walker, Cane, Buildings And Grounds Coordinator Prior Level of Function Level of [place]: Independent with ADLs and functional transfers, Independent with homemaking with ambulation Lives With: Alone Receives Help From: Other (Comment) Leisure: Hobbies-yes (Comment)(quilting) Comments: was not using cane or walker before surgery (+) For complete objective data, detailed plan of care and patient education refer to: PT EVALUATION flow sheet, PT TREATMENT flow sheet, patient Plan of Care, Plan of Care progress note, and Patient Education. This note stands as the current Discharge Summary upon patient discharge from the hospital or completion of Physical Therapy Plan of Care. * Veronica García PA-C - 12/09/2019 7:21 AM EST [facility] Inpatient Progress Note 12/09/2019 Jayashree Ferguson 1940 [id number] Assessment/Plan: Jayashree Ferguson is a 79 y.o. female with a history of HTN, hypothyroidism, depression, IBS and lumbar spinal stenosis s/p prior lumbar fusion who presented to [facility] 12/07/2019 for planned L5-S1 facectectomy and fusion with hardware replacement by Dr. Murillo (Neurosurgery). [facility] was consulted for post op medical management. Pre op Cr 1.03, Hgb 13.3. 1. Lumbar Spinal Stenosis: s/p prior lumbar fusion. Recurrent symptoms that failed conservative measures. S/p L5-S1 facectectomy and fusion with hardware replacement by Dr. Murillo (Neurosurgery) on 12/07/19. Monitor respiratory status and mental status closely with IV/PO narcotics. Pt not wanting to use IV dilaudid FINANCE ADMINISTRATOR due to N/V as opiates make her sick. Bowel regimen. PT/OT. Neurosurgery following. 2. Acute Respiratory Insufficiency: Secondary to anesthesia and narcotics. Required 2L oxygen post op. Encouraged IS use. On room air 12/09/19. 3. Post op nausea, vomiting: in setting of anesthesia and IV narcotics. Scop patch, IV PRN Zofran. Improved. 4. Diarrhea: developed overnight 12/09/19 likely due to senna, miralax. Pt endorses hx of IBS with similar episodes in the past. Did receive 2 doses of IV Clindamycin in pre-op. Stool PCR ordered but no further stool prior to discharge. Encouraged pt to ADAT and call PCP if persistent symptoms. 5. Bradycardia: mild with low of 53 bpm. Asymptomatic, likely in setting of sedation. Held BB for now. Continued CCB with hold parameters. Improving to HR 60s by 12/08/19. HR stable 12/09/19. 6. Acute Blood Loss Anemia: Mild, Last Hgb 13.3 on 11/23/19. Trended to Hgb 11.9 by 12/08/19. Suspect secondary to anticipated intra-op and post-op drain losses. Hgb stable at 11.8 12/09/19. 7. Hypertension: BP lower post op so held BB. Continued CCB (verfied that its ER BID) with hold parameters. Restarted ARB on 12/08/19 with hold parameters. Okay to resume home meds at discharge at BP trending up, HR stable. Encouraged pt to monitor BID at home. 8. Depression: per history. Mood stable. Continued home Zoloft. 9. Hypothyroidism: per ihstory. Continued home Synthroid. 10. DVT prophylaxis: SCDs per Neurosurgery. Thank you for allowing us to participate in the care of your patient. Do not hesitate to contact uswith questions. Before 6 pm, please contact the provider listed in the treatment team. After 6 pm, please contact [phone] for any questions or concerns. Current living situation: home Expected Disposition: TBD, therapy consulted. Estimated discharge date: TBD Subjective: Patient is new to me today. I have reviewed labs, imaging, vital signs, and prior documentation including applications sales consultant recommendations and summarized by me as above. Pt reports 15 episodes of diarrhea overnight, has a hx of IBS and had senna and miralax. Did get 2 doses of clindamycin so will check stool PCR. Immodium PRN if negative. Endorses abdominal cramping but now resolved. No nausea and tolerating diet. Dicussed BP meds on discharge. Also endorsing a dry cough, no SOB or sputum production. Physical Exam: BP (!) 176/97 (BP Location: Left arm, Patient Position: Sitting) Pulse 79 Temp 98.4 F (36.9 C) (Oral) Resp 12 Ht 5' Wt 71.3 kg (157 lb 3 oz) SpO2 94% BMI 30.70 kg/m General: NAD Eyes: EOMI ENT: neck supple Cardiovascular: Regular rate Respiratory: Clear to auscultation, unlabored breathing on room air Gastrointestinal: Soft, non tender, +BS Genitourinary: no suprapubic tenderness Musculoskeletal: No lower extremity edema Skin: warm, dry Neuro: Alert and oriented, strength 5/5 in BLE Psych: Mood appropriate, pleasant Current Medications: atorvastatin 10 mg Oral Nightly dicyclomine 10 mg Oral TID with meals diltiazem 120 mg Oral BID levothyroxine 37.5 mcg Oral Once per day on Sun Sat levothyroxine 75 mcg Oral Once per day on Tue losartan 100 mg Oral Daily with lunch polyethylene glycol 17 g Oral Daily scopolamine 1 patch Transdermal Once senna-docusate 2 tablet Oral BID sertraline 50 mg Oral QAM Labs, Imaging and Studies reviewed: Results from last 7 days Lab Units 12/09/19 0551 12/08/19 0412 WBC K/mcL 10.23 10.67 HGB g/dL 11.8* 11.9* HCT % 36.3 35.5* PLT K/mcL 197 211 Results from last 7 days Lab Units 12/08/19 0412 SODIUM mmol/L 137 POTASSIUM mmol/L 4.4 CHLORIDE mmol/L 104 BICARB mmol/L 22 BUN mg/dL 16 CREATININE mg/dL 0.97 EGFR mL/min/1.73 m2 56* GLUCOSE mg/dL 124* CALCIUM mg/dL 9.8 * Marion Renteria, PT - 12/08/2019 3:18 PM EST Physical Therapy PHYSICAL THERAPY TREATMENT NOTE Skilled Therapy Needs After Discharge Anticipate Resolution of Current Assessment Limitations Including: Pain Are Skilled Therapy Services Needed After Discharge: No Rehab Potential: Good, For goals Outcomes Measures Prior Function - Basic Mobility Raw Score: 24 Points Prior Function - Basic Mobility % Impaired: 0% functionally impaired AM-PAC - Basic Mobility Raw Score: 18 Points AM-PAC - Basic Mobility % Impaired: 40.47% functionally impaired Activity Tolerance Activity Tolerance: Endurance does not limit participation in activity Therapy Precautions Orthotic Devices: Yes Spine / Trunk: LSO General Rehab Precautions: Back Balance Sitting Balance - Static: (Independent) Sitting Balance - Dynamic: (Independent) Standing Balance - Static: (Supervision) Standing Balance - Dynamic: (Stand by assist) Bed Mobility Rolling: Supervision Supine to Sit: Supervision Transfers Sit to Stand: Stand by assistance Bed to Chair: Stand by assistance Supervisor Pipeline: Wheeled walker, 1 person, Gait belt Gait/Locomotion Gait Assistance: Stand by assistance Assistive Device: Wheeled walker, None Distance: 250 Feet Pattern: Antalgic Stair Management Technique: One rail R, One rail L, Step to pattern, Forwards Stair Management Assistance: Contact guard Number of Stairs: 3 Skilled Intervention: verbal cues for upright posture, steadiness with walker vs without, vc's for stair management Exercise Skilled Intervention: Reviewed back precautions Home Living Type of Home: House Home Layout: Multi-level, Laundry in basement, Bed/bath upstairs, Stairs to enter with rails, Stairs to enter without rails Bathroom Shower/Tub: Walk-in shower Bathroom Toilet: Raised Bathroom Equipment: Other (Comment)(continuous pickling line pickler to wash feet) Home Equipment: Walker, Cane, Buildings And Grounds Coordinator Prior Level of Function Level of [place]: Independent with ADLs and functional transfers, Independent with homemaking with ambulation Lives With: Alone Receives Help From: Other (Comment) Leisure: Hobbies-yes (Comment)(quilting) Comments: was not using cane or walker before surgery (+) For complete objective data, detailed plan of care and patient education refer to: PT EVALUATION flow sheet, PT TREATMENT flow sheet, patient Plan of Care, Plan of Care progress note, and Patient Education. This note stands as the current Discharge Summary upon patient discharge from the hospital or completion of Physical Therapy Plan of Care. * Jessie Romero, DATA ANALYSIS INTERN - 12/08/2019 2:56 PM EST NEUROSURGERY PROGRESS NOTE: Jayashree Ferguson 1940 [id number] Assessment/Plan: POD # 1 s/p Procedure(s): LUMBAR FIVE-SACRAL ONE FACETECTOMY AND FUSION, REPLACE HARDWARE Doing remarkably well Pain is well controlled Discontinue FINANCE ADMINISTRATOR Ambulating well in hugo HVAC output slowing PT/OT Voiding without difficulty LSO when out of bed Possible discharge home tomorrow Subjective: Pain is well controlled. Denies numbness, tingling, nausea or vomiting. Voiding withoutdifficulty and passing gas. Ambulated in carranza Physical Exam: Neuro: Bilateral lower extremities: Plantar flexion/ dorsiflexion/ EHL/ knee flexion/ extension/ hip flexion 5/5 Incision covered with clean dry dressing. HV1: 04/11 HV2: Vital Signs: Current: BP 144/61 (BP Location: Left arm, Patient Position: Lying) Pulse (!) 59 Temp 99 F (37.2 C) (Oral) Resp 14 Ht 5' Wt 71.3 kg (157 lb 3 oz) SpO2 93% BMI 30.70 kg/m Last 24 hours: Temp: [97.5 F (36.4 C)-99.1 F (37.3 C)] 99 F (37.2 C) Heart Rate: [59-74] 59 Resp: [12-14] 14 BP: (98-144)/(46-65) 144/61 Intake/Output Summary (Last 24 hours) at 12/08/2019 1457 Last data filed at 12/08/2019 0500 Gross per 24 hour Intake Output 45 ml Net -45 ml Labs: Lab Results Component Value Date NA 137 12/08/2019 K 4.4 12/08/2019 CL 104 12/08/2019 Lab Results Component Value Date WBC 10.67 12/08/2019 HGB 11.9 (L) 12/08/2019 HCT 35.5 (L) 12/08/2019 MCV 90.3 12/08/2019 PLT 211 12/08/2019 LESLEY Gavin CNP [phone] or [phone] * Judith Ba PA-C - 12/08/2019 7:35 AM EST [facility] Inpatient Progress Note 12/08/2019 Jayashree Ferguson 1940 [id number] Assessment/Plan: Jayashree Ferguson is a 79 y.o. female with a history of HTN, hypothyroidism, depression, IBS and lumbar spinal stenosis s/p prior lumbar fusion who presented to [facility] 12/07/2019 for planned L5-S1 facectectomy and fusion with hardware replacement by Dr. Murillo (Neurosurgery). [employer] was consulted for post op medical management. Pre op Cr 1.03, Hgb 13.3. 1. Lumbar Spinal Stenosis: s/p prior lumbar fusion. Recurrent symptoms that failed conservative measures. S/p L5-S1 facectectomy and fusion with hardware replacement by Dr. Murillo (Neurosurgery) on 12/07/19. Monitor respiratory status and mental status closely with IV/PO narcotics. Pt not wanting to use IV dilaudid FINANCE ADMINISTRATOR due to N/V as opiates make her sick. Bowel regimen. PT/OT consulted. Neurosurgery following. 2. Acute Respiratory Insufficiency: Secondary to anesthesia and narcotics. Requiring 2L oxygen postop. Encouraged IS use. Intermittently on room air by 12/08/19. Monitor and wean oxygen as able for goal sat >92%. 3. Post op nausea, vomiting: in setting of anesthesia and IV narcotics. Scop patch, IV PRN Zofran. Added IV PRN Compazine for breakthrough nausea. 4. Bradycardia: mild with low of 53 bpm. Asymptomatic, likely in setting of sedation. Held BB for now. Continued CCB with hold parameters. Improving to HR 60s by 12/08/19. Monitor. 5. Acute Blood Loss Anemia: Mild, Last Hgb 13.3 on 11/23/19. Trended to Hgb 11.9 by 12/08/19. Suspect secondary to anticipated intra-op and post-op drain losses. Continue to monitor and transfuse PRN. 6. Hypertension: BP lower post op so held BB. Continued CCB (verfied that its ER BID) with hold parameters. Restarted ARB on 12/08/19 with hold parameters. Titrate prn. 7. Depression: per history. Mood stable. Continued home Zoloft. 8. Hypothyroidism: per ihstory. Continued home Synthroid. 9. DVT prophylaxis: SCDs per Neurosurgery. Thank you for allowing us to participate in the care of your patient. Do not hesitate to contact uswith questions. Before 6 pm, please contact the provider listed in the treatment team. After 6 pm, please contact [phone] for any questions or concerns. Current living situation: home Expected Disposition: TBD, therapy consulted. Estimated discharge date: TBD Subjective: Patient is new to me today. I have reviewed labs, imaging, vital signs, and prior documentation including applications sales consultant recommendations and summarized by me as above. Patient reports 2/10 pain at surgery site without radiation of pain, numbness, tingling. Reports she has not been using her FINANCE ADMINISTRATOR pump asthe nausea is worse than the pain. No vomiting or nausea today. Tolerating diet. Denies issues urinating. Denies passing flatus, no BM thus far. Denies new complaints including CP, SOB, abdominal pain. Discussed with ex /sweet potato disintegrator at bedside. Physical Exam: BP 101/63 (BP Location: Left arm, Patient Position: Lying) Pulse 74 Temp 99.1 F (37.3 C) (Oral) Resp 14 Ht 5' Wt 71.3 kg (157 lb 3 oz) SpO2 94% BMI 30.70 kg/m General: NAD Eyes: EOMI ENT: neck supple Cardiovascular: Regular rate Respiratory: Clear to auscultation, unlabored breathing on room air Gastrointestinal: Soft, non tender, +BS Genitourinary: no suprapubic tenderness Musculoskeletal: No lower extremity edema Skin: warm, dry Neuro: Alert and oriented, strength 5/5 in BLE, sensation intact throughout Psych: Mood appropriate, pleasant Current Medications: atorvastatin 10 mg Oral Nightly diltiazem 120 mg Oral BID levothyroxine 37.5 mcg Oral Once per day on Sun Sat levothyroxine 75 mcg Oral Once per day on Tue losartan 100 mg Oral Daily with lunch scopolamine 1 patch Transdermal Once senna-docusate 2 tablet Oral BID sertraline 50 mg Oral QAM Labs, Imaging and Studies reviewed: Results from last 7 days Lab Units 12/08/19 0412 WBC K/mcL 10.67 HGB g/dL 11.9* HCT % 35.5* PLT K/mcL 211 Results from last 7 days Lab Units 12/08/19 0412 SODIUM mmol/L 137 POTASSIUM mmol/L 4.4 CHLORIDE mmol/L 104 BICARB mmol/L 22 BUN mg/dL 16 CREATININE mg/dL 0.97 EGFR mL/min/1.73 m2 56* GLUCOSE mg/dL 124* CALCIUM mg/dL 9.8 * Mira Phelan - 12/07/2019 3:29 PM EST Medical Doctor Md attempted to visit patient. Patient unavailable. Pastoral Care team will remain available to support patient and family PRN. Medical Doctor Md GLENN Gomes, [facility] Advanced Medical Doctor Md Practitioner, Pastoral Care [facility] Office: 12/07/19 1600 Clinical Encounter Type Visit Type Non Crisis Non Crisis Visit Attempt;Rounding Visited With Patient not available Visit Length (minutes) 5 documented in this encounter Instructions * Patient Instructions* Rishi Carson, - 11/23/2019 12:52 PM EST Preoperative Medication Instructions In preparation for surgery please continue all of your current medications with the following changes: Jayashree Ferguson Home Medication Instructions Prior to Surgery ANGELLA:[id number] Printed on:11/23/19 8765 Medication Information Take last dose on Take the morning of surgery Comment(s) acetaminophen (TYLENOL) 500 MG tablet Take 1,000 mg by mouth every 8 (eight) hours as needed for pain . Yes if needed aspirin 81 MG EC tablet Take 81 mg by mouth every evening . 11/27/19 atorvastatin (LIPITOR) 10 MG tablet Take 10 mg by mouth nightly . no cholecalciferol, vitamin D3, 2,000 unit cap Take 2,000 Units by mouth every evening . 11/27/19 diltiazem (TIAZAC) 120 MG 24 hr capsule Take 120 mg by mouth 2 (two) times a day . yes labetalol (NORMODYNE) 100 MG tablet Take 100 mg by mouth every morning . yes levothyroxine (SYNTHROID, LEVOTHROID) 75 MCG tablet Take 75 mcg by mouth 5 (five) times a week Tuesday through Tuesday . yes levothyroxine (SYNTHROID, LEVOTHROID) 75 MCG tablet Take 37.5 mcg by mouth twice weekly on Tuesday and Tuesday . no losartan (COZAAR) 100 MG tablet Take 100 mg by mouth every morning . no sertraline (ZOLOFT) 50 MG tablet Take 50 mg by mouth every morning . yes therapeutic multivitamin (THERAGRAN) tablet Take 1 tablet by mouth every evening . 11/27/19 Please take your evening medications as usual on the evening prior to surgery. STOP Aspirin (and medications that contain aspirin, such as [place], Pepto- Bismol, Anacin), antiinflammatory medications such as Advil, Motrin, Ibuprofen, Naproxen, Aleve, [place], Pepto-Bismol, Anacin, Diclofenac, Voltaren, Daypro, Etodolac, Ketoprofen, Meloxicam, Piroxicam, Relafen, Nabumetone, etc. Also discontinue Vitamin C, Vitamin E, [place]-3 Fatty Acid, Fish Oil or Lovaza, as wellas all herbal medications and supplements. Take last dose on 11/27/19. Tylenol (acetaminophen) is acceptable, but be careful to follow the label directions. On the morning of surgery, with a small amount of water, take ONLY the medications listed above in the column Take the morning of surgery. If you are using Eye Drops or Inhalers, please bring them to the hospital. If you have sleep apnea and have a CPAP/BIPAP device, please bring it with you on the day of surgery. documented in this encounter* Patient Instructions* Rishi Carson DO - 09/26/2019 10:53 AM EDT Preoperative Medication Instructions In preparation for surgery please continue all of your current medications with the following changes: Jayashree Ferguson Home Medication Instructions Prior to Surgery ANGELLA:[id number] Printed on:09/26/19 1059 Medication Information Take last dose on Take the morning of surgery Comment(s) acetaminophen (TYLENOL) 500 MG tablet Take 1,000 mg by mouth every 8 (eight) hours as needed for pain . Yes if needed aspirin 81 MG EC tablet Take 81 mg by mouth every evening . 09/22/19 atorvastatin (LIPITOR) 10 MG tablet Take 10 mg by mouth nightly . no cholecalciferol, vitamin D3, 2,000 unit cap Take 2,000 Units by mouth every evening . 09/22/19 diltiazem (TIAZAC) 120 MG 24 hr capsule Take 120 mg by mouth 2 (two) times a day . yes labetalol (NORMODYNE) 100 MG tablet Take 100 mg by mouth every morning . yes levothyroxine (SYNTHROID, LEVOTHROID) 75 MCG tablet Take 75 mcg by mouth 5 (five) times a week Tuesday through Tuesday . yes levothyroxine (SYNTHROID, LEVOTHROID) 75 MCG tablet Take 37.5 mcg by mouth twice weekly on Tuesday and Tuesday . no losartan (COZAAR) 100 MG tablet Take 100 mg by mouth every morning . no sertraline (ZOLOFT) 50 MG tablet Take 25 mg by mouth nightly . no therapeutic multivitamin (THERAGRAN) tablet Take 1 tablet by mouth every evening . 09/22/19 Please take your evening medications as usual on the evening prior to surgery. STOP Aspirin (and medications that contain aspirin, such as [place], Pepto- Bismol, Anacin), antiinflammatory medications such as Advil, Motrin, Ibuprofen, Naproxen, Aleve, [place], Pepto-Bismol, Anacin, Diclofenac, Voltaren, Daypro, Etodolac, Ketoprofen, Meloxicam, Piroxicam, Relafen, Nabumetone, etc. Also discontinue Vitamin C, Vitamin E, [place]-3 Fatty Acid, Fish Oil or [place], as wellas all herbal medications and supplements. Take last dose on 09/22/2019. Tylenol (acetaminophen) is acceptable, but be careful to follow the label directions. On the morning of surgery, with a small amount of water, take ONLY the medications listed above in the column Take the morning of surgery. If you are using Eye Drops or Inhalers, please bring them to the hospital. If you have sleep apnea and have a CPAP/BIPAP device, please bring it with you on the day of surgery. documented in this encounter Summary Purpose Family History No Family History Records Found Relationship Condition Age at Onset Recorded Date/T mary mother Coronary artery disease Unknown Myocardial infarction Unknown Cerebrovascular accident (CVA) Unknown Chief Complaint and Reason for Visit Chief Complaint WOUND Chief Complaint WOUND UNILATERAL Additional Source Comments Quinton Whitten MD - 11/25/2017 12:10 PM Rony Calix MD - 11/30/2017 11:30 AM Quinton Camargo MD - 11/25/2017 12:10 PM Rishi Haro DO - 11/23/2019 12:56 PM EST H&P Notes (unrecognized sect ion and content) Formatting of this note may be different from the original. Assessment and Plan ASSESSMENT 1.Osteoarthritis, right knee. 2.Hypertension. 3.Dyslipidemia. 4.Suspected mild risk for obstructive sleep apnea based on screening criteria. 5.Hypothyroidism. 6.Postoperative nausea and vomiting with previous anesthesia. 7.Generalized anxiety disorder. 8.History of melanoma. 9.Sacha revised cardiac risk index equals 0. LRCRI = 0 . (Score = %Risk of Major Cardiac Outcomes : 0 = 0.4%, 1 = 0.9%, 2 = 2.4%, 3 or more = >5.4%. This may overestimate the cardiac risks in lower risk procedures and underestimate the risks in vascular procedures. This study has been externally validated.) Plan: 1.The patient falls into an acceptable cardiac risk category for the planned procedure per 2014 ACC guidelines and recommendations. 2.Endocarditis prophylaxis is not required per 2007 ACC/AHA guidelines and recommendations (endorsed by the 2014 ACC guidelines). 3.Avoid/limit perioperative hypothermia. 4.Perioperative thromboembolic prophylaxis is recommended per 2016 ACCP guidelines and recommendations (or 2011 AAOS guidelines for Orthopedic or 2008 JAZMYN guidelines for Neurosurgical procedures). 5.The patient's head of bed should be elevated to 30 degrees postoperatively unless contraindicated by the procedure. 6.The patient has been advised to discontinue NSAID's, aspirin products, antiplatelet products, and alternative medications at least seven days prior to the surgery. 7.The patient may utilize acetaminophen preoperatively for pain management if not allergic and no history of liver disease. 8.The patient was advised not to eat or drink anything after midnight on the evening prior to their procedure, except for a sip of water to take any recommended medications 9. The patient is currently on a scheduled beta-kortney, which should be continued perioperatively per 2014 ACC Guidelines and Recommendations. 10.Laboratory testing was ordered today and will be reviewed preoperatively for any pertinent abnormalities. 11.Postoperative spirometry/volurex, deep breathing maneuvers, and early ambulation is recommended if not contraindicated by the procedure. 12.A copy of this report will be made available to the requesting surgeon through the electronic medical record system. 13. The patient is at a higher risk for postoperative confusion given age greater than 65. For patient's 65 or older, consider incorporating the 2016 ACS/AGS Guidelines for Optimal Perioperative Management of the Geriatric Patient. -consider avoiding/limiting the use of opioids, benzodiazepines, antihistamines, and anticholinergics -consider opioid sparing multimodal pain management -consider delirium identification/prevention measures (daily CAM Short Form) -consider fall precautions (Vivar Fall Scale) -consider nutritional support (ESPEN Guidelines) -consider pressure ulcer prevention (Kane Score) -consider functional decline identification and prevention measures 14. The patient was advised that KRYSTINA/SDB is a potential risk in the perioperative period, including the potential for respiratory failure. The patient may warrant closer monitoring post-operatively for signs of KRYSTINA/SDB. Post-operative protocols for patients with suspected/non-compliant KRYSTINA/SDB should be followed. Post-operative capnography may be of potential benefit in this patient. Cautious perioperative use of opioids and benzodiazepines is recommended in this patient. 15. The patient was advised to alert Anesthesia on the day of surgery of their tendency toward post-operative nausea and vomiting. 16. The patient was advised to take the Levothyroxine, Diltiazem, and Labetalol the morning of surgery with sips of water. 17. The patient was advised to refrain from taking their ONEL inhibitors or ARB's on the morning of surgery per [facility] Anesthesia recommendations. Quinton Whitten M.D. [facility] [phone] Chief Complaint Patient presents with Pre-operative Medical Risk Stratification History of Present Illness Jayashree Ferguson is a 77 y.o. female who presents for preoperative medical risk stratification consult at the request of Dr. Rony Guerrero prior to Right total knee arthroplasty. SURGEON Dr. Rony Guerrero. DIAGNOSIS Osteoarthritis, right knee. PROCEDURE Right total knee arthroplasty. DATE OF SURGERY 11/30/2017. PRIMARY CARE PHYSICIAN Dr. Alegre. MINING ENGINEER None designated. HISTORY OF PRESENT ILLNESS The patient is a pleasant 77-year-old woman, who presents today for preoperative consultation and risk stratification prior to undergoing a right total knee arthroplasty for osteoarthritis of the right knee. The patient has a past medical history significant for hypertension, dyslipidemia, suspected mild risk for obstructive sleep apnea based on screening criteria, hypothyroidism, postoperative nausea and vomiting with previous anesthesia, generalized anxiety disorder, and history of melanoma. The patient believes that her blood pressure and cholesterol are typically well controlled with medication. The patient is currently noted to be on both a beta blocking agent and a statin medication. The patient is felt to be at mild risk for obstructive sleep apnea based on screening criteria and should be monitored closely postoperatively for signs of sleep apnea. The patient did indicate a history of postoperative nausea and vomiting with previous anesthesia and was advised to alert Anesthesia of this on the morning of the procedure. The patient denies any history of diabetes, renal insufficiency, stroke, DVT, or PE. She denied any family history of bleeding disorders or thromboembolic disease. The patient denies any history of [place], coronary artery disease, valvular heart disease, or congestive heart failure. The patient's EKG today indicates normal sinus rhythm with a rate 65. here are no acute ST or T-wave changes per my read. The patient is currently walking despite her knee pain. The patient is still able to describe a functional capacity that exceeds 4 MET's. Please see below regarding status of active medical conditions and assessment and plan regarding details of preoperative medical risk stratification. Past Medical History: Diagnosis Date Anxiety Cancer (HCC) melanoma Complication of anesthesia Hyperlipidemia Hypertension PONV (postoperative nausea and vomiting) Past Surgical History: Procedure Laterality Date lymphectomy SKIN GRAFT SPINAL FUSION Social History Substance Use Topics Smoking status: Former Smoker Packs/day: 1.00 Years: 4.00 Smokeless tobacco: Never Used Comment: in college Alcohol use 1.8 oz/week 3 Glasses of wine per week History reviewed. No pertinent family history. Prior to Admission medications Medication Sig Taking? Dose Freq aspirin 81 MG EC tablet Take 81 mg by mouth daily evening . Yes 81 mg, Oral, Daily, evening atorvastatin (LIPITOR) 10 MG tablet Take 10 mg by mouth daily. Yes 10 mg, Oral, Daily cholecalciferol, vitamin D3, 1,000 unit tablet Take 1,000 Units by mouth daily. Yes 1,000 Units, Oral, Daily diltiazem (CARDIZEM) 120 MG tablet Take 120 mg by mouth 2 (two) times a day. Yes 120 mg, Oral, 2 times daily labetalol (NORMODYNE) 100 MG tablet Take 100 mg by mouth daily. Yes 100 mg, Oral, Daily levothyroxine (SYNTHROID, LEVOTHROID) 75 MCG tablet Take 75 mcg by mouth once daily. Yes 75 mcg, Oral, Daily losartan (COZAAR) 100 MG tablet Take 100 mg by mouth daily. Yes 100 mg, Oral, Daily sertraline (ZOLOFT) 25 MG tablet Take 25 mg by mouth daily Pt takes 1.5 pills daily at hs . Yes 25 mg, Oral, Daily, Pt takes 1.5 pills daily at hs Allergies Allergen Reactions Sulfa (Sulfonamide Antibiotics) Anaphylaxis Opioids - Morphine Analogues GI Intolerance vomitting Penicillins Rash swelling Review of Systems Constitution: (negative) HENT: (negative) Eyes: (negative) Respiratory: (negative) Cardiovascular: (negative) - Exercise capacity: Greater than 4 METS Gastrointestinal: (negative) Genitourinary: (negative) Musculoskeletal: - Right knee pain Skin: (negative) Neurological: (negative) Hematological: (negative) Physical Exam BP 138/83 Pulse 72 Temp 99.7 F (37.6 C ) (Oral) Ht 5' Wt 69.4 kg (153 lb 1.6 oz) SpO2 94% BMI 29.90 kg/m Constitutional: She is oriented to person, place, and time. She appears well developed and well-nourished. No distress. HENT: Head: Normocephalic and atraumatic. Right Ear: External ear normal. No decreased hearing is noted. Left Ear: External ear normal. Nose: Nose normal. Mouth/Throat: Oropharynx is clear and moist. Normal dentition. No oropharyngeal exudate. Eyes: Conjunctivae and EOM are normal. Pupils are equal, round, and reactive to light. Right eye exhibits no discharge. Left eye exhibits no discharge. No scleral icterus. Neck: Normal range of motion. Neck supple. No JVD present. Carotid bruit is not present. No tracheal deviation present. No thyromegaly present. Cardiovascular: Normal heart sounds and intact distal pulses. Exam reveals no gallop and no friction rub. No murmur heard. Pulmonary/Chest: Effort normal and breath sounds normal. No stridor. No respiratory distress. She has no wheezes . She has no rales . She exhibits no tenderness. Abdominal: Soft. Bowel sounds are normal. She exhibits no distension and no mass. There is no hepatosplenomegaly. no tenderness There is no rebound and no guarding. No hernia. Musculoskeletal: Normal range of motion. She exhibits no edema or tenderness. Lymphadenopathy: She has no cervical adenopathy. Neurological: She is alert and oriented to person, place, and time. She has normal strength. She displays no atrophy and no tremor. No cranial nerve deficit or sensory deficit. She exhibits normal muscle tone. She displays no seizure activity. Coordination normal. Skin: Skin is warm, dry and intact. No rash noted. She is not diaphoretic. No erythema. Psychiatric: She has a normal mood and affect. Her behavior is normal. Her mood appears not anxious. Her affect is not angry, not blunt, not labile and not inappropriate. She is not agitated, not aggressive, not hyperactive, not slowed, not withdrawn and not combative. Cognition and memory are normal. Cognition and memory are not impaired. She does not exhibit a depressed mood. She exhibits normal recent memory and normal remote memory. Data Preprocedure Sleep Apnea Assessment - Mild Risk (1/3) Sleep Apnea in the patient's Active Problem List or Medical History: no 1. History of apparent airway obstruction during sleep: (1 point for this category) Do you snore frequently, or snore loud enough to be heard through a closed door?: yes Do you awaken from sleep with a choking sensation or have periods during sleep when someone has observed you pausing between breaths?: no 2. Somnolence of the patient: (1 point for this category) Do you find yourself frequently sleepy despite adequate hours of sleep the night before?: no Do you fall asleep easily while: watching TV, reading, riding in or driving a car?: no 3. Predisposing physician characteristics: (1 point for this category, 2 points if the BMI ? 40) BMI (Calculated): 29.9 Neck Circumference (inches): 14 inches in this encounter INTERVAL HISTORY AND PHYSICAL Patient Name: Jayashree Ferguson Admit Date: [id number] MR #: [id number] : 1940 The H&P has been reviewed and the patient has been examined. I concur with the findings of the H&P. There are no significant changes. It is appropriate to proceed with the planned procedure. Rony Guerrero MD 11/30/2017 11:30 AM Formatting of this note may be different from the original. Assessment and Plan ASSESSMENT 1.Osteoarthritis, right knee. 2.Hypertension. 3.Dyslipidemia. 4.Suspected mild risk for obstructive sleep apnea based on screening criteria. 5.Hypothyroidism. 6.Postoperative nausea and vomiting with previous anesthesia. 7.Generalized anxiety disorder. 8.History of melanoma. 9.Sacha revised cardiac risk index equals 0. LRCRI = 0 . (Score = %Risk of Major Cardiac Outcomes : 0 = 0.4%, 1 = 0.9%, 2 = 2.4%, 3 or more = >5.4%. This may overestimate the cardiac risks in lower risk procedures and underestimate the risks in vascular procedures. This study has been externally validated.) Plan: 1.The patient falls into an acceptable cardiac risk category for the planned procedure per 2014 ACC guidelines and recommendations. 2.Endocarditis prophylaxis is not required per 2007 ACC/AHA guidelines and recommendations (endorsed by the 2014 ACC guidelines). 3.Avoid/limit perioperative hypothermia. 4.Perioperative thromboembolic prophylaxis is recommended per 2016 ACCP guidelines and recommendations (or 2010 AAOS guidelines for Orthopedic or 2008 JAZMYN guidelines for Neurosurgical procedures). 5.The patient's head of bed should be elevated to 30 degrees postoperatively unless contraindicated by the procedure. 6.The patient has been advised to discontinue NSAID's, aspirin products, antiplatelet products, and alternative medications at least seven days prior to the surgery. 7.The patient may utilize acetaminophen preoperatively for pain management if not allergic and no history of liver disease. 8.The patient was advised not to eat or drink anything after midnight on the evening prior to their procedure, except for a sip of water to take any recommended medications 9. The patient is currently on a scheduled beta-kortney, which should be continued perioperatively per 2014 ACC Guidelines and Recommendations. 10.Laboratory testing was ordered today and will be reviewed preoperatively for any pertinent abnormalities. 11.Postoperative spirometry/volurex, deep breathing maneuvers, and early ambulation is recommended if not contraindicated by the procedure. 12.A copy of this report will be made available to the requesting surgeon through the electronic medical record system. 13. The patient is at a higher risk for postoperative confusion given age greater than 65. For patient's 65 or older, consider incorporating the 2016 ACS/AGS Guidelines for Optimal Perioperative Management of the Geriatric Patient. -consider avoiding/limiting the use of opioids, benzodiazepines, antihistamines, and anticholinergics -consider opioid sparing multimodal pain management -consider delirium identification/prevention measures (daily CAM Short Form) -consider fall precautions (Vivar Fall Scale) -consider nutritional support (ESPEN Guidelines) -consider pressure ulcer prevention (Kane Score) -consider functional decline identification and prevention measures 14. The patient was advised that KRYSTINA/SDB is a potential risk in the perioperative period, including the potential for respiratory failure. The patient may warrant closer monitoring post-operatively for signs of KRYTSINA/SDB. Post-operative protocols for patients with suspected/non-compliant KRYSTINA/SDB should be followed. Post-operative capnography may be of potential benefit in this patient. Cautious perioperative use of opioids and benzodiazepines is recommended in this patient. 15. The patient was advised to alert Anesthesia on the day of surgery of their tendency toward post-operative nausea and vomiting. 16. The patient was advised to take the Levothyroxine, Diltiazem, and Labetalol the morning of surgery with sips of water. 17. The patient was advised to refrain from taking their ONEL inhibitors or ARB's on the morning of surgery per [facility] Anesthesia recommendations. Quinton Whitten M.D. [facility] [phone] Chief Complaint Patient presents with Pre-operative Medical Risk Stratification History of Present Illness Jayashree Ferguson is a 77 y.o. female who presents for preoperative medical risk stratification consult at the request of Dr. Rony Guerrero prior to Right total knee arthroplasty. SURGEON Dr. Rony Guerrero. DIAGNOSIS Osteoarthritis, right knee. PROCEDURE Right total knee arthroplasty. DATE OF SURGERY 11/30/2017. PRIMARY CARE PHYSICIAN Dr. Alegre. MINING ENGINEER None designated. HISTORY OF PRESENT ILLNESS The patient is a pleasant 77-year-old woman, who presents today for preoperative consultation and risk stratification prior to undergoing a right total knee arthroplasty for osteoarthritis of the right knee. The patient has a past medical history significant for hypertension, dyslipidemia, suspected mild risk for obstructive sleep apnea based on screening criteria, hypothyroidism, postoperative nausea and vomiting with previous anesthesia, generalized anxiety disorder, and history of melanoma. The patient believes that her blood pressure and cholesterol are typically well controlled with medication. The patient is currently noted to be on both a beta blocking agent and a statin medication. The patient is felt to be at mild risk for obstructive sleep apnea based on screening criteria and should be monitored closely postoperatively for signs of sleep apnea. The patient did indicate a history of postoperative nausea and vomiting with previous anesthesia and was advised to alert Anesthesia of this on the morning of the procedure. The patient denies any history of diabetes, renal insufficiency, stroke, DVT, or PE. She denied any family history of bleeding disorders or thromboembolic disease. The patient denies any history of [place], coronary artery disease, valvular heart disease, or congestive heart failure. The patient's EKG today indicates normal sinus rhythm with a rate 65. here are no acute ST or T-wave changes per my read. The patient is currently walking despite her knee pain. The patient is still able to describe a functional capacity that exceeds 4 MET's. Please see below regarding status of active medical conditions and assessment and plan regarding details of preoperative medical risk stratification. Past Medical History: Diagnosis Date Anxiety Cancer (HCC) melanoma Complication of anesthesia Hyperlipidemia Hypertension PONV (postoperative nausea and vomiting) Past Surgical History: Procedure Laterality Date lymphectomy SKIN GRAFT SPINAL FUSION Social History Substance Use Topics Smoking status: Former Smoker Packs/day: 1.00 Years: 4.00 Smokeless tobacco: Never Used Comment: in college Alcohol use 1.8 oz/week 3 Glasses of wine per week History reviewed. No pertinent family history. Prior to Admission medications Medication Sig Taking? Dose Freq aspirin 81 MG EC tablet Take 81 mg by mouth daily evening . Yes 81 mg, Oral, Daily, evening atorvastatin (LIPITOR) 10 MG tablet Take 10 mg by mouth daily. Yes 10 mg, Oral, Daily cholecalciferol, vitamin D3, 1,000 unit tablet Take 1,000 Units by mouth daily. Yes 1,000 Units, Oral, Daily diltiazem (CARDIZEM) 120 MG tablet Take 120 mg by mouth 2 (two) times a day. Yes 120 mg, Oral, 2 times daily labetalol (NORMODYNE) 100 MG tablet Take 100 mg by mouth daily. Yes 100 mg, Oral, Daily levothyroxine (SYNTHROID, LEVOTHROID) 75 MCG tablet Take 75 mcg by mouth once daily. Yes 75 mcg, Oral, Daily losartan (COZAAR) 100 MG tablet Take 100 mg by mouth daily. Yes 100 mg, Oral, Daily sertraline (ZOLOFT) 25 MG tablet Take 25 mg by mouth daily Pt takes 1.5 pills daily at hs . Yes 25 mg, Oral, Daily, Pt takes 1.5 pills daily at hs Allergies Allergen Reactions Sulfa (Sulfonamide Antibiotics) Anaphylaxis Opioids - Morphine Analogues GI Intolerance vomitting Penicillins Rash swelling Review of Systems Constitution: (negative) HENT: (negative) Eyes: (negative) Respiratory: (negative) Cardiovascular: (negative) - Exercise capacity: Greater than 4 METS Gastrointestinal: (negative) Genitourinary: (negative) Musculoskeletal: - Right knee pain Skin: (negative) Neurological: (negative) Hematological: (negative) Physical Exam BP 138/83 Pulse 72 Temp 99.7 F (37.6 C ) (Oral) Ht 5' Wt 69.4 kg (153 lb 1.6 oz) SpO2 94% BMI 29.90 kg/m Constitutional: She is oriented to person, place, and time. She appears well developed and well-nourished. No distress. HENT: Head: Normocephalic and atraumatic. Right Ear: External ear normal. No decreased hearing is noted. Left Ear: External ear normal. Nose: Nose normal. Mouth/Throat: Oropharynx is clear and moist. Normal dentition. No oropharyngeal exudate. Eyes: Conjunctivae and EOM are normal. Pupils are equal, round, and reactive to light. Right eye exhibits no discharge. Left eye exhibits no discharge. No scleral icterus. Neck: Normal range of motion. Neck supple. No JVD present. Carotid bruit is not present. No tracheal deviation present. No thyromegaly present. Cardiovascular: Normal heart sounds and intact distal pulses. Exam reveals no gallop and no friction rub. No murmur heard. Pulmonary/Chest: Effort normal and breath sounds normal. No stridor. No respiratory distress. She has no wheezes . She has no rales . She exhibits no tenderness. Abdominal: Soft. Bowel sounds are normal. She exhibits no distension and no mass. There is no hepatosplenomegaly. no tenderness There is no rebound and no guarding. No hernia. Musculoskeletal: Normal range of motion. She exhibits no edema or tenderness. Lymphadenopathy: She has no cervical adenopathy. Neurological: She is alert and oriented to person, place, and time. She has normal strength. She displays no atrophy and no tremor. No cranial nerve deficit or sensory deficit. She exhibits normal muscle tone. She displays no seizure activity. Coordination normal. Skin: Skin is warm, dry and intact. No rash noted. She is not diaphoretic. No erythema. Psychiatric: She has a normal mood and affect. Her behavior is normal. Her mood appears not anxious. Her affect is not angry, not blunt, not labile and not inappropriate. She is not agitated, not aggressive, not hyperactive, not slowed, not withdrawn and not combative. Cognition and memory are normal. Cognition and memory are not impaired. She does not exhibit a depressed mood. She exhibits normal recent memory and normal remote memory. Data Preprocedure Sleep Apnea Assessment - Mild Risk (1/3) Sleep Apnea in the patient's Active Problem List or Medical History: no 1. History of apparent airway obstruction during sleep: (1 point for this category) Do you snore frequently, or snore loud enough to be heard through a closed door?: yes Do you awaken from sleep with a choking sensation or have periods during sleep when someone has observed you pausing between breaths?: no 2. Somnolence of the patient: (1 point for this category) Do you find yourself frequently sleepy despite adequate hours of sleep the night before?: no Do you fall asleep easily while: watching TV, reading, riding in or driving a car?: no 3. Predisposing physician characteristics: (1 point for this category, 2 points if the BMI ? 40) BMI (Calculated): 29.9 Neck Circumference (inches): 14 inches in this encounter Jayashree Ferguson 1940 Encounter Diagnoses Name Primary? Pre-op examination Yes Spinal stenosis, lumbar region, without neurogenic claudication Essential hypertension Hyperlipidemia, unspecified hyperlipidemia type Procedure: L5-S1 Facetectomy and Fusion, HWR Surgeon: Dr. Murillo PCP: Nai Alegre MD Cardiology: None Date of Procedure: 12/07/19 Dictation on: 11/23/2019 5:09 PM by: RISHI CARSON [[id number]] 1. ASA = 2 . 2. RCRI = 1 . (Score/Risk of Major Cardiac Outcomes - 0/0.4%, 1/0.9%, 2/2.4%, 3 or more/>5.4%. This may overestimate the cardiac risks in lower risk procedures and underestimate the risks in vascular procedures. This study has been externally validated.) 3. Caprini Score = 6 . (Score/Risk of Symptomatic VTE = 0/<0.5%, 1-2/1.5%, 3- 4/3.0%, 5 or greater/6% or greater). 4. Apfel Score = 4. (Score/Risk of PONV = 0/10%, 1/21%, 2/39%, 3/61%, 4/79%) This score has been externally validated.1. The patient is at increased risk for postoperative delirium. Plan: 1. The patient falls into an acceptable cardiac risk for category for their planned procedure per 2014 ACC Guidelines and Recommendations. 2. Endocarditis prophylaxis is not required per 2017 ACC/AHA Guidelines and Recommendations. 3. Avoid/limit perioperative hypothermia. 4. Perioperative thromboembolic prophylaxis is recommended per 2016 ACCP Guidelines and Recommendations (or 2011 AAOS Guidelines for orthopedic procedures, or 2008 JAZMYN Guidelines for neurosurgical procedures). 5. The patient s head of the bed should be elevated to 30 degrees post- operatively unless contraindicated by the procedure. 6. Recommendations regarding preoperative management of the patient's antiplatelet therapy, anticoagulation therapy, and/or NSAID's will be deferred to the neurosurgical service per current protocol. 7. The patient may use appropriate amounts of acetaminophen pre-operatively for pain management if not allergic and if no history of liver disease. 8. The patient was advised to follow the current [facility] guidelines regarding fluid intake after midnight and to take any recommended medications on the morning of surgery with a sip of water. 9. Ordered laboratory tests will be reviewed pre-operatively for any pertinent abnormalities. 10. Post-operative spirometry/volurex, deep breathing maneuvers, and early ambulation is recommended if not contraindicated by the procedure. 11. This report will be made available to the requesting surgeon through the electronic medical records. 1. The patient is currently on a scheduled beta-kortney, which should be continued perioperatively per 2017 ACC Guidelines and Recommendations. 1. The patient was advised to refrain from taking their ONEL inhibitors or ARB's on the morning of surgery per [facility] Anesthesia recommendations. 1. The patient was advised to alert anesthesia on the day of surgery of their tendency toward post-operative nausea and vomiting/motion sickness. 1. For patient's 65 or older consider incorporating the 2016 ACS/AGS Guidelines for Optimal Perioperative Management of the Geriatric Patient. -consider avoiding/limiting the use of opioids, benzodiazepines, antihistamines, and anticholinergics -consider opioid sparing multimodal pain management -consider delirium identification/prevention measures (daily CAM Short Form) -consider fall precautions (Vivar Fall Scale) -consider nutritional support (ESPEN Guidelines) -consider pressure ulcer prevention (Kane Score) -consider functional decline identification and prevention measures 2. Perioperative nebulizers can be used as needed. Dictation on: 11/23/2019 5:12 PM by: RISHI CARSON [[id number]] Allergies Allergen Reactions Sulfa (Sulfonamide Antibiotics) Anaphylaxis Penicillins Swelling and Rash Erythromycin GI Intolerance Other reaction(s): Vomiting Opioids - Morphine Analogues GI Intolerance vomitting Stomach spasms Tetracycline GI Intolerance Other reaction(s): Vomiting Jayashree Ferguson Home Medication Instructions Prior to Surgery ANGELLA:[id number] Printed on:11/23/19 5494 Medication Information Take last dose on Take the morning of surgery Comment(s) acetaminophen (TYLENOL) 500 MG tablet Take 1,000 mg by mouth every 8 (eight) hours as needed for pain . aspirin 81 MG EC tablet Take 81 mg by mouth every evening . atorvastatin (LIPITOR) 10 MG tablet Take 10 mg by mouth nightly . cholecalciferol, vitamin D3, 2,000 unit cap Take 2,000 Units by mouth every evening . diltiazem (TIAZAC) 120 MG 24 hr capsule Take 120 mg by mouth 2 (two) times a day . labetalol (NORMODYNE) 100 MG tablet Take 100 mg by mouth every morning . levothyroxine (SYNTHROID, LEVOTHROID) 75 MCG tablet Take 75 mcg by mouth 5 (five) times a week Tuesday through Tuesday . levothyroxine (SYNTHROID, LEVOTHROID) 75 MCG tablet Take 37.5 mcg by mouth twice weekly on Tuesday and Tuesday . losartan (COZAAR) 100 MG tablet Take 100 mg by mouth every morning . sertraline (ZOLOFT) 50 MG tablet Take 50 mg by mouth every morning . therapeutic multivitamin (THERAGRAN) tablet Take 1 tablet by mouth every evening . Past Medical History: Diagnosis Date Anxiety Arthritis Back pain Bladder problem freq / leakage Cancer (HCC) melanoma Cataract removed Complication of anesthesia Depression Disease of thyroid gland History of echocardiogram History of stress test Hyperlipidemia Hypertension Hypothyroidism Irritable bowel syndrome Lumbar foraminal stenosis Osteoporosis PONV (postoperative nausea and vomiting) SOB (shortness of breath) Past Surgical History: Procedure Laterality Date ARTHROPLASTY KNEE TOTAL Right 11/30/2017 Procedure: RIGHT TOTAL KNEE ARTHROPLASTY ; Surgeon: Rony Guerrero MD; Location: [facility] Main OR; Service: Orthopedic BACK SURGERY COLONOSCOPY JOINT REPLACEMENT lymphectomy SKIN GRAFT SPINAL FUSION TONSILLECTOMY Social History Socioeconomic History Marital status: Spouse name: Not on file Number of children: Not on file Years of education: Not on file Highest education level: Not on file Occupational History Not on file Social Needs Financial resource strain: Not on file Food insecurity Worry: Not on file Inability: Not on file Transportation needs Medical: Not on file Non-medical: Not on file Tobacco Use Smoking status: Former Smoker Packs/day: 1.00 Years: 4.00 Pack years: 4.00 Smokeless tobacco: Never Used Tobacco comment: in college Substance and Sexual Activity Alcohol use: Yes Alcohol/week: 3.0 standard drinks Types: 3 Glasses of wine per week Comment: one or more times a week Drug use: Never Sexual activity: Not Currently Lifestyle Physical activity Days per week: Not on file Minutes per session: Not on file Stress: Not on file Relationships Social connections Talks on phone: Not on file Gets together: Not on file Attends roman catholic service: Not on file Active member of club or organization: Not on file Attends meetings of clubs or organizations: Not on file Relationship status: Not on file Other Topics Concern Not on file Social History Narrative Not on file Family History Problem Relation Age of Onset Heart disease Mother Cancer Father Review of Systems Constitution: Negative for chills, decreased appetite, diaphoresis, fever, malaise/fatigue, night sweats, weight gain and weight loss. HENT: Negative. Negative for congestion, ear discharge, ear pain, hearing loss, hoarse voice, nosebleeds, odynophagia, sore throat, stridor and tinnitus. Eyes: Negative for blurred vision, discharge, double vision, pain, photophobia, redness, vision loss in left eye, vision loss in right eye, visual disturbance and visual halos. Cardiovascular: Positive for dyspnea on exertion. Negative for chest pain, claudication, cyanosis, irregular heartbeat, leg swelling, near-syncope, orthopnea, palpitations, paroxysmal nocturnal dyspnea and syncope. Respiratory: Positive for shortness of breath. Negative for cough, hemoptysis, sleep disturbances due to breathing, snoring, sputum production and wheezing. Endocrine: Negative for cold intolerance, heat intolerance, polydipsia, polyphagia and polyuria. Hematologic/Lymphatic: Negative for adenopathy and bleeding problem. Does not bruise/bleed easily. Skin: Negative. Negative for color change, dry skin, flushing, itching, nail changes, poor wound healing, rash, skin cancer, suspicious lesions and unusual hair distribution. Musculoskeletal: Positive for arthritis and back pain. Negative for falls, gout, joint pain, joint swelling, muscle cramps, muscle weakness, myalgias, neck pain and stiffness. Gastrointestinal: Positive for constipation and diarrhea. Negative for bloating, abdominal pain, anorexia, change in bowel habit, bowel incontinence, dysphagia, excessive appetite, flatus, heartburn, hematemesis, hematochezia, hemorrhoids, jaundice, melena, nausea and vomiting. Genitourinary: Positive for bladder incontinence and frequency. Negative for decreased libido, dysuria, flank pain, genital sores, hematuria, hesitancy, incomplete emptying, menorrhagia, missed menses, nocturia, non-menstrual bleeding, pelvic pain and urgency. Neurological: Negative for aphonia, brief paralysis, difficulty with concentration, disturbances in coordination, excessive daytime sleepiness, dizziness, focal weakness, headaches, light-headedness, loss of balance, numbness, paresthesias, seizures, sensory change, tremors, vertigo and weakness. Psychiatric/Behavioral: Positive for depression. Negative for altered mental status, hallucinations, hypervigilance, memory loss, substance abuse, suicidal ideas and thoughts of violence. The patient is nervous/anxious. The patient does not have insomnia. Allergic/Immunologic: Negative for environmental allergies, HIV exposure, hives and persistent infections. Vitals: 11/23/19 1225 BP: 124/77 Pulse: 71 Resp: 14 Temp: 99 F (37.2 C) SpO2: 92% Weight: 71.4 kg (157 lb 6.5 oz) Height: 5' Physical Exam Vitals signs and nursing note reviewed. Constitutional: General: She is not in acute distress. Appearance: She is well-developed. She is not diaphoretic. HENT: Head: Normocephalic and atraumatic. Right Ear: External ear normal. Left Ear: External ear normal. Nose: Nose normal. Mouth/Throat: Pharynx: No oropharyngeal exudate. Eyes: General: No scleral icterus. Right eye: No discharge. Left eye: No discharge. Conjunctiva/sclera: Conjunctivae normal. Pupils: Pupils are equal, round, and reactive to light. Neck: Musculoskeletal: Normal range of motion and neck supple. Thyroid: No thyromegaly. Vascular: No JVD. Trachea: No tracheal deviation. Cardiovascular: Rate and Rhythm: Normal rate and regular rhythm. Heart sounds: Normal heart sounds. No murmur. No friction rub. No gallop. Pulmonary: Effort: Pulmonary effort is normal. No respiratory distress. Breath sounds: Normal breath sounds. No stridor. No wheezing or rales. Chest: Chest wall: No tenderness. Abdominal: General: Bowel sounds are normal. There is no distension. Palpations: Abdomen is soft. There is no mass. Tenderness: There is no abdominal tenderness. There is no guarding or rebound. Hernia: No hernia is present. Musculoskeletal: Normal range of motion. General: No tenderness. Lymphadenopathy: Cervical: No cervical adenopathy. Skin: General: Skin is warm and dry. Coloration: Skin is not pale. Findings: No erythema or rash. Neurological: Mental Status: She is alert and oriented to person, place, and time. Cranial Nerves: No cranial nerve deficit. Motor: No abnormal muscle tone. Coordination: Coordination normal. Deep Tendon Reflexes: Reflexes are normal and symmetric. Reflexes normal. Psychiatric: Behavior: Behavior normal. Thought Content: Thought content normal. Judgment: Judgment normal. Rishi Carson DO documented in this encounter Jayashree Ferguson 1940 Encounter Diagnoses Name Primary? Pre-op exam Yes Spinal stenosis, lumbar region, without neurogenic claudication Essential hypertension Hyperlipidemia, unspecified hyperlipidemia type Procedure: L5-S1 Facetectomy and Fusion, Replacement of Hardware Surgeon: Dr. Murillo PCP: Nai Alegre MD Cardiology: None Date of Procedure: 10/03/19 PREOPERATIVE HISTORY AND PHYSICAL EXAMINATION DATE OF SERVICE 09/26/2019. ASSESSMENT 1. Lumbar foraminal stenosis. 2. Postoperative nausea and vomiting. 3. Postoperative respiratory failure occurring in 2000 associated with morphine use. 4. Hypertension. 5. Hyperlipidemia. 6. Depression. 7. Generalized anxiety disorder. 8. Osteoporosis. 9. Deconditioning. 10. Irritable bowel syndrome. 11. Melanoma. 12. Osteoarthritis. 13. Overactive bladder. 14. Hypothyroidism. 15. Cataracts. 16. Previous tobacco use. 17. Family history significant for coronary artery disease, cardiac infarction, hypertension, cerebrovascular accident, brain cancer. 1. ASA = 2 . 2. RCRI = 1 . (Score/Risk of Major Cardiac Outcomes - 0/0.4%, 1/0.9%, 2/2.4%, 3 or more/>5.4%. This may overestimate the cardiac risks in lower risk procedures and underestimate the risks in vascular procedures. This study has been externally validated.) 3. Caprini Score = 5. (Score/Risk of Symptomatic VTE = 0/<0.5%, 1-2/1.5%, 3- 4/3.0%, 5 or greater/6% or greater). 4. Apfel Score =4 . (Score/Risk of PONV = 0/10%, 1/21%, 2/39%, 3/61%, 4/79%) This score has been externally validated. 1. The patient is at increased risk for postoperative delirium. Plan: 1. The patient falls into an acceptable cardiac risk for category for their planned procedure per 2014 ACC Guidelines and Recommendations. 2. Endocarditis prophylaxis is not required per 2017 ACC/AHA Guidelines and Recommendations. 3. Avoid/limit perioperative hypothermia. 4. Perioperative thromboembolic prophylaxis is recommended per 2016 ACCP Guidelines and Recommendations (or 2010 AAOS Guidelines for orthopedic procedures, or 2008 JAZMYN Guidelines for neurosurgical procedures). 5. The patient s head of the bed should be elevated to 30 degrees post- operatively unless contraindicated by the procedure. 6. Recommendations regarding preoperative management of the patient's antiplatelet therapy, anticoagulation therapy, and/or NSAID's will be deferred to the neurosurgical service per current protocol. 7. The patient may use appropriate amounts of acetaminophen pre-operatively for pain management if not allergic and if no history of liver disease. 8. The patient was advised to follow the current [facility] guidelines regarding fluid intake after midnight and to take any recommended medications on the morning of surgery with a sip of water. 9. Ordered laboratory tests will be reviewed pre-operatively for any pertinent abnormalities. 10. Post-operative spirometry/volurex, deep breathing maneuvers, and early ambulation is recommended if not contraindicated by the procedure. 11. This report will be made available to the requesting surgeon through the electronic medical records. 1. The patient is currently on a scheduled beta-kortney, which should be continued perioperatively per 2017 ACC Guidelines and Recommendations. 1. The patient was advised to refrain from taking their ONEL inhibitors or ARB's on the morning of surgery per [facility] Anesthesia recommendations. 1. For patient's 65 or older consider incorporating the 2016 ACS/AGS Guidelines for Optimal Perioperative Management of the Geriatric Patient. -consider avoiding/limiting the use of opioids, benzodiazepines, antihistamines, and anticholinergics -consider opioid sparing multimodal pain management -consider delirium identification/prevention measures (daily CAM Short Form) -consider fall precautions (Vivar Fall Scale) -consider nutritional support (ESPEN Guidelines) -consider pressure ulcer prevention (Kane Score) -consider functional decline identification and prevention measures 1. The patient was advised to alert anesthesia on the day of surgery of their tendency toward post-operative nausea and vomiting/motion sickness. 2. Perioperative nebulizers can be used as needed. PREOPERATIVE HISTORY AND PHYSICAL EXAMINATION DATE OF SERVICE 09/26/2019. HISTORY OF PRESENT ILLNESS Ms. Ferguson is a pleasant 79-year-old white female with a past medical history significant for lumbar foraminal stenosis, hypertension, hyperlipidemia, depression, generalized anxiety disorder, osteoporosis, deconditioning, IBS, melanoma, overactive bladder, hypothyroidism, osteoarthritis, cataracts, postoperative nausea and vomiting, previous tobacco use, and respiratory suppression associated with previous morphine use who presents today for preoperative consultation and risk stratification at the request of Dr. Murillo for a planned L5-S1 foraminectomy and fusion with replacement of hardware on 10/04/2019. The patient believes that her blood pressure and cholesterol have been adequately controlled on her current regimen. The patient is noted to be on a beta blocking agent as well as a statin medication at this time. The patient denies a history of diabetes, renal insufficiency, cerebrovascular disease, coronary artery disease, peripheral vascular disease, or valvular heart disease. The patient is noted have undergone a myocardial perfusion study on 06/09/2014. This study was negative for evidence of inducible ischemia. A copy of that report is available in the electronic medical records for review and verification. The patient states she is not known to snore excessively when she sleeps and does not necessarily appear to be at risk for sleep apnea based on today's assessment. The patient states she has undergone several surgical procedures in the past, all of which were uneventful from a cardiac and anesthesia standpoint, except for postoperative nausea and vomiting. The patient states she also experienced a one-time episode of postoperative respiratory failure requiring the use of Narcan. The patient reports this was attributed to morphine use and occurred in roughly 2000. I did advise the patient to alert Anesthesia of both of these issues on the morning of surgery. The patient describes a functional capacity of less than 4 METs at this time. The patient is able to achieve her activities of daily living, but has difficulty climbing stairs or exercising. The patient reports she is prone to shortness of breath and did undergo a fairly extensive workup in the past. The patient's dyspnea with exertion was eventually attributed to her deconditioning. The patient states she is not known to have any intrinsic pulmonary issues. The patient's EKG today (per my interpretation) is within normal limits. The patient is a former smoker, but does not believe she has any underlying lung disease associated with her tobacco use such as COPD. The patient demonstrates a clear lung exam today with a room air pulse oximeter of 95%. The patient does have cardiac disease in her family history. The patient denies any personal or family history significant for bleeding diathesis or thromboembolic disease. The patient had no other acute complaints at this time. Allergies Allergen Reactions Sulfa (Sulfonamide Antibiotics) Anaphylaxis Penicillins Swelling and Rash Erythromycin GI Intolerance Other reaction(s): Vomiting Opioids - Morphine Analogues GI Intolerance vomitting Stomach spasms Tetracycline GI Intolerance Other reaction(s): Vomiting Jayashree Ferguson Home Medication Instructions Prior to Surgery ANGELLA:[id number] Printed on:09/26/19 8483 Medication Information Take last dose on Take the morning of surgery Comment(s) acetaminophen (TYLENOL) 500 MG tablet Take 1,000 mg by mouth every 8 (eight) hours as needed for pain . aspirin 81 MG EC tablet Take 81 mg by mouth every evening . atorvastatin (LIPITOR) 10 MG tablet Take 10 mg by mouth nightly . cholecalciferol, vitamin D3, 2,000 unit cap Take 2,000 Units by mouth every evening . diltiazem (TIAZAC) 120 MG 24 hr capsule Take 120 mg by mouth 2 (two) times a day . labetalol (NORMODYNE) 100 MG tablet Take 100 mg by mouth every morning . levothyroxine (SYNTHROID, LEVOTHROID) 75 MCG tablet Take 75 mcg by mouth 5 (five) times a week Tuesday through Tuesday . levothyroxine (SYNTHROID, LEVOTHROID) 75 MCG tablet Take 37.5 mcg by mouth twice weekly on Tuesday and Tuesday . losartan (COZAAR) 100 MG tablet Take 100 mg by mouth every morning . sertraline (ZOLOFT) 50 MG tablet Take 25 mg by mouth nightly . therapeutic multivitamin (THERAGRAN) tablet Take 1 tablet by mouth every evening . Past Medical History: Diagnosis Date Anxiety Arthritis Back pain Bladder problem freq / leakage Cancer (HCC) melanoma Cataract removed Complication of anesthesia Depression Disease of thyroid gland History of echocardiogram History of stress test Hyperlipidemia Hypertension Hypothyroidism Irritable bowel syndrome Lumbar foraminal stenosis Osteoporosis PONV (postoperative nausea and vomiting) SOB (shortness of breath) Past Surgical History: Procedure Laterality Date ARTHROPLASTY KNEE TOTAL Right 11/30/2017 Procedure: RIGHT TOTAL KNEE ARTHROPLASTY ; Surgeon: Rony Guerrero MD; Location: [facility] Main OR; Service: Orthopedic BACK SURGERY COLONOSCOPY JOINT REPLACEMENT lymphectomy SKIN GRAFT SPINAL FUSION TONSILLECTOMY Social History Socioeconomic History Marital status: Spouse name: Not on file Number of children: Not on file Years of education: Not on file Highest education level: Not on file Occupational History Not on file Social Needs Financial resource strain: Not on file Food insecurity: Worry: Not on file Inability: Not on file Transportation needs: Medical: Not on file Non-medical: Not on file Tobacco Use Smoking status: Former Smoker Packs/day: 1.00 Years: 4.00 Pack years: 4.00 Smokeless tobacco: Never Used Tobacco comment: in college Substance and Sexual Activity Alcohol use: Yes Alcohol/week: 3.0 standard drinks Types: 3 Glasses of wine per week Comment: one or more times a week Drug use: Never Sexual activity: Not on file Lifestyle Physical activity: Days per week: Not on file Minutes per session: Not on file Stress: Not on file Relationships Social connections: Talks on phone: Not on file Gets together: Not on file Attends roman catholic service: Not on file Active member of club or organization: Not on file Attends meetings of clubs or organizations: Not on file Relationship status: Not on file Other Topics Concern Not on file Social History Narrative Not on file Family History Problem Relation Age of Onset Heart disease Mother Cancer Father Review of Systems Constitution: Negative for chills, decreased appetite, diaphoresis, fever, malaise/fatigue, night sweats, weight gain and weight loss. HENT: Negative. Negative for congestion, ear discharge, ear pain, hearing loss, hoarse voice, nosebleeds, odynophagia, sore throat, stridor and tinnitus. Eyes: Negative for blurred vision, discharge, double vision, pain, photophobia, redness, vision loss in left eye, vision loss in right eye, visual disturbance and visual halos. Cardiovascular: Positive for dyspnea on exertion. Negative for chest pain, claudication, cyanosis, irregular heartbeat, leg swelling, near-syncope, orthopnea, palpitations, paroxysmal nocturnal dyspnea and syncope. Respiratory: Positive for shortness of breath. Negative for cough, hemoptysis, sleep disturbances due to breathing, snoring, sputum production and wheezing. Endocrine: Negative for cold intolerance, heat intolerance, polydipsia, polyphagia and polyuria. Hematologic/Lymphatic: Negative for adenopathy and bleeding problem. Does not bruise/bleed easily. Skin: Negative. Negative for color change, dry skin, flushing, itching, nail changes, poor wound healing, rash, skin cancer, suspicious lesions and unusual hair distribution. Musculoskeletal: Positive for arthritis and back pain. Negative for falls, gout, joint pain, joint swelling, muscle cramps, muscle weakness, myalgias, neck pain and stiffness. Gastrointestinal: Positive for constipation and diarrhea. Negative for bloating, abdominal pain, anorexia, change in bowel habit, bowel incontinence, dysphagia, excessive appetite, flatus, heartburn, hematemesis, hematochezia, hemorrhoids, jaundice, melena, nausea and vomiting. Genitourinary: Positive for bladder incontinence and frequency. Negative for decreased libido, dysuria, flank pain, genital sores, hematuria, hesitancy, incomplete emptying, menorrhagia, missed menses, nocturia, non-menstrual bleeding, pelvic pain and urgency. Neurological: Negative for aphonia, brief paralysis, difficulty with concentration, disturbances in coordination, excessive daytime sleepiness, dizziness, focal weakness, headaches, light-headedness, loss of balance, numbness, paresthesias, seizures, sensory change, tremors, vertigo and weakness. Psychiatric/Behavioral: Positive for depression. Negative for altered mental status, hallucinations, hypervigilance, memory loss, substance abuse, suicidal ideas and thoughts of violence. The patient is nervous/anxious. The patient does not have insomnia. Allergic/Immunologic: Negative for environmental allergies, HIV exposure, hives and persistent infections. Vitals: 09/26/19 1010 BP: 113/76 Pulse: 63 Resp: 14 Temp: 98.5 F (36.9 C) TempSrc: Oral SpO2: 95% Weight: 70.1 kg (154 lb 8.7 oz) Height: 5' Physical Exam Vitals signs and nursing note reviewed. Constitutional: General: She is not in acute distress. Appearance: She is well-developed. She is not diaphoretic. HENT: Head: Normocephalic and atraumatic. Right Ear: External ear normal. Left Ear: External ear normal. Nose: Nose normal. Mouth/Throat: Pharynx: No oropharyngeal exudate. Eyes: General: No scleral icterus. Right eye: No discharge. Left eye: No discharge. Conjunctiva/sclera: Conjunctivae normal. Pupils: Pupils are equal, round, and reactive to light. Neck: Musculoskeletal: Normal range of motion and neck supple. Thyroid: No thyromegaly. Vascular: No JVD. Trachea: No tracheal deviation. Cardiovascular: Rate and Rhythm: Normal rate and regular rhythm. Heart sounds: Normal heart sounds. No murmur. No friction rub. No gallop. Pulmonary: Effort: Pulmonary effort is normal. No respiratory distress. Breath sounds: Normal breath sounds. No stridor. No wheezing or rales. Chest: Chest wall: No tenderness. Abdominal: General: Bowel sounds are normal. There is no distension. Palpations: Abdomen is soft. There is no mass. Tenderness: There is no tenderness. There is no guarding or rebound. Hernia: No hernia is present. Musculoskeletal: Normal range of motion. General: No tenderness. Lymphadenopathy: Cervical: No cervical adenopathy. Skin: General: Skin is warm and dry. Coloration: Skin is not pale. Findings: No erythema or rash. Neurological: Mental Status: She is alert and oriented to person, place, and time. Cranial Nerves: No cranial nerve deficit. Motor: No abnormal muscle tone. Coordination: Coordination normal. Deep Tendon Reflexes: Reflexes are normal and symmetric. Reflexes normal. Psychiatric: Behavior: Behavior normal. Thought Content: Thought content normal. Judgment: Judgment normal. Rishi Carson DO documented in this encounter INTERVAL HISTORY AND PHYSICAL Patient Name: Jayashree Ferguson Admit Date: MR #: [id number] : 1940 The H&P has been reviewed and the patient has been examined. I concur with the findings of the H&P. There are no significant changes. It is appropriate to proceed with the planned procedure.I have considered the prescription of non-opioid analgesics. Opioid analgesics are required based on my history as well as physical examination. I am also prescribing the minimum quantity and potency needed to treat pain in the postoperative period. Logistically, the patient is receiving more than a 7 day supply of opioids secondary to the nature of the neurosurgical procedure that was undertaken. In addition, the patient may live a significant distance where obtaining a prescription is not feasible in the acute postoperative period. The pain is expected to persist for longer than 7 days based on the nature of the cranial or spinal procedure that was performed. Nonsteroidal anti-inflammatories are not recommended in the postoperative period after a spinal fusion was performed. This may inhibit the fusion and cause further difficulties in the future such as pseudoarthrosis. The patient and the family have been advised of the risks and benefits of opioid analgesics. These risks included the potential for addiction. The total morphine equivalent dose (MED) for the treatment of acute pain can exceed 30 MED a day with major orthopedic surgery. I believe this is necessary based on clinical judgment as well as patient needs. These medications are used for acute pain after a major surgical procedure. This is not being done for chronic pain control. Mariana Murillo MD 12/07/2019 6:09 AM Jayashree Carrero Phyllis 1940 Encounter Diagnoses Name Primary? Pre-op examination Yes Spinal stenosis, lumbar region, without neurogenic claudication Essential hypertension Hyperlipidemia, unspecified hyperlipidemia type Procedure: L5-S1 Facetectomy and Fusion, [facility] Surgeon: Dr. Murillo PCP: Nai Alegre MD Cardiology: None Date of Procedure: 12/07/19 PREOPERATIVE HISTORY AND PHYSICAL EXAMINATION DATE OF SERVICE 11/23/2019 ASSESSMENT 1. Lumbar foraminal stenosis. 2. Postoperative nausea, vomiting. 3. Postoperative respiratory failure occurring in 2000 associated with morphine use. 4. Hypertension. 5. Hyperlipidemia. 6. Depression. 7. Generalized anxiety disorder. 8. Osteoporosis. 9. Deconditioning. 10. Irritable bowel syndrome. 11. Melanoma. 12. Osteoarthritis. 13. Overactive bladder. 14. Hypothyroidism. 15. Cataracts. 16. Previous tobacco use. 17. Family history significant for coronary artery disease, myocardial infarction, hypertension, cerebrovascular accident, and unspecified brain cancer. 1. ASA = 2 . 2. RCRI = 1 . (Score/Risk of Major Cardiac Outcomes - 0/0.4%, 1/0.9%, 2/2.4%, 3 or more/>5.4%. This may overestimate the cardiac risks in lower risk procedures and underestimate the risks in vascular procedures. This study has been externally validated.) 3. Caprini Score = 6 . (Score/Risk of Symptomatic VTE = 0/<0.5%, 1-2/1.5%, 3- 4/3.0%, 5 or greater/6% or greater). 4. Apfel Score = 4. (Score/Risk of PONV = 0/10%, 1/21%, 2/39%, 3/61%, 4/79%) This score has been externally validated.1. The patient is at increased risk for postoperative delirium. Plan: 1. The patient falls into an acceptable cardiac risk for category for their planned procedure per 2014 ACC Guidelines and Recommendations. 2. Endocarditis prophylaxis is not required per 2017 ACC/AHA Guidelines and Recommendations. 3. Avoid/limit perioperative hypothermia. 4. Perioperative thromboembolic prophylaxis is recommended per 2016 ACCP Guidelines and Recommendations (or 2011 AAOS Guidelines for orthopedic procedures, or 2008 JAZMYN Guidelines for neurosurgical procedures). 5. The patient s head of the bed should be elevated to 30 degrees post- operatively unless contraindicated by the procedure. 6. Recommendations regarding preoperative management of the patient's antiplatelet therapy, anticoagulation therapy, and/or NSAID's will be deferred to the neurosurgical service per current protocol. 7. The patient may use appropriate amounts of acetaminophen pre-operatively for pain management if not allergic and if no history of liver disease. 8. The patient was advised to follow the current [facility] guidelines regarding fluid intake after midnight and to take any recommended medications on the morning of surgery with a sip of water. 9. Ordered laboratory tests will be reviewed pre-operatively for any pertinent abnormalities. 10. Post-operative spirometry/volurex, deep breathing maneuvers, and early ambulation is recommended if not contraindicated by the procedure. 11. This report will be made available to the requesting surgeon through the electronic medical records. 1. The patient is currently on a scheduled beta-kortney, which should be continued perioperatively per 2017 ACC Guidelines and Recommendations. 1. The patient was advised to refrain from taking their ONEL inhibitors or ARB's on the morning of surgery per [facility] Anesthesia recommendations. 1. The patient was advised to alert anesthesia on the day of surgery of their tendency toward post-operative nausea and vomiting/motion sickness. 1. For patient's 65 or older consider incorporating the 2016 ACS/AGS Guidelines for Optimal Perioperative Management of the Geriatric Patient. -consider avoiding/limiting the use of opioids, benzodiazepines, antihistamines, and anticholinergics -consider opioid sparing multimodal pain management -consider delirium identification/prevention measures (daily CAM Short Form) -consider fall precautions (Vivar Fall Scale) -consider nutritional support (ESPEN Guidelines) -consider pressure ulcer prevention (Kane Score) -consider functional decline identification and prevention measures 2. Perioperative nebulizers can be used as needed. PREOPERATIVE HISTORY AND PHYSICAL EXAMINATION DATE OF SERVICE 11/23/2019. HISTORY OF PRESENT ILLNESS Ms. Ferguson is a pleasant 79-year-old white female with a past medical history significant for lumbar foraminal stenosis, hypertension, hyperlipidemia, depression, generalized anxiety disorder, osteoporosis, deconditioning, IBS, melanoma, overactive bladder, hypothyroidism, osteoarthritis, cataracts, postoperative nausea and vomiting, previous tobacco use, and respiratory suppression associated with previous morphine use, who presents today for preoperative consultation risk stratification at the request of Dr. Murillo for a planned L5-S1 foraminectomy and fusion with replacement of hardware on 12/07/2019. The patient was last seen at the preadmission testing center at [facility] on 09/26/2019 for this same procedure which was planned for 10/04/2019. The patient reports the procedure had to be canceled due to insurance barriers. The patient states she has now rescheduled the procedure for the aforementioned date. The patient states she has not had any interval changes from a medical standpoint since her last evaluation. The patient believes her blood pressure and cholesterol have been adequately controlled on her current regimen. The patient is noted to be on a beta blocking agent as well as a statin medication at this time. The patient denies a history of diabetes, renal insufficiency, cerebrovascular disease, coronary artery disease, peripheral vascular disease or valvular heart disease. The patient is noted to have undergone a myocardial perfusion study on 06/09/2014. This study was negative for evidence of inducible ischemia. A copy of that report is available in the electronic medical records for review and verification. The patient states she is not known to snore excessively when she sleeps and does not necessarily appear to be at risk for sleep apnea based on today's assessment. The patient states she has undergone several surgical procedures in the past, all of which were uneventful from a cardiac and anesthesia standpoint except for postoperative nausea and vomiting. The patient reports she also experienced a one-time episode of postoperative respiratory failure requiring the use of Narcan. The patient reports this was attributed to morphine and occurred in 2000. I did advise the patient to alert Anesthesia of both these issues on the morning of surgery. The patient currently describes a functional capacity of less than 4 METs. The patient is able to achieve her activities of daily living but does not exercise or climb stairs. At her described level of activity, the patient denies any active cardiac symptoms such as chest pain, atypical chest pain, palpitations, syncope, near syncope, orthopnea, PND, lower extremity edema, claudication, dyspnea on exertion, or shortness of breath. The patient's EKG performed on 09/26/2019 is within normal limits. The patient states she is a former smoker but does not believe she has any underlying COPD associated with her previous tobacco use. The patient's lung exam is clear today with a room air pulse oximeter of 92%. The patient does report cardiac disease in her family history, but the patient denies any personal or family history significant for bleeding diathesis or thromboembolic disease. The patient has no other acute complaints at this time. Allergies Allergen Reactions Sulfa (Sulfonamide Antibiotics) Anaphylaxis Penicillins Swelling and Rash Erythromycin GI Intolerance Other reaction(s): Vomiting Opioids - Morphine Analogues GI Intolerance vomitting Stomach spasms Tetracycline GI Intolerance Other reaction(s): Vomiting Jayashree Ferguson Home Medication Instructions Prior to Surgery ANGELLA:[id number] Printed on:11/23/19 2847 Medication Information Take last dose on Take the morning of surgery Comment(s) acetaminophen (TYLENOL) 500 MG tablet Take 1,000 mg by mouth every 8 (eight) hours as needed for pain . aspirin 81 MG EC tablet Take 81 mg by mouth every evening . atorvastatin (LIPITOR) 10 MG tablet Take 10 mg by mouth nightly . cholecalciferol, vitamin D3, 2,000 unit cap Take 2,000 Units by mouth every evening . diltiazem (TIAZAC) 120 MG 24 hr capsule Take 120 mg by mouth 2 (two) times a day . labetalol (NORMODYNE) 100 MG tablet Take 100 mg by mouth every morning . levothyroxine (SYNTHROID, LEVOTHROID) 75 MCG tablet Take 75 mcg by mouth 5 (five) times a week Tuesday through Tuesday . levothyroxine (SYNTHROID, LEVOTHROID) 75 MCG tablet Take 37.5 mcg by mouth twice weekly on Tuesday and Tuesday . losartan (COZAAR) 100 MG tablet Take 100 mg by mouth every morning . sertraline (ZOLOFT) 50 MG tablet Take 50 mg by mouth every morning . therapeutic multivitamin (THERAGRAN) tablet Take 1 tablet by mouth every evening . Past Medical History: Diagnosis Date Anxiety Arthritis Back pain Bladder problem freq / leakage Cancer (HCC) melanoma Cataract removed Complication of anesthesia Depression Disease of thyroid gland History of echocardiogram History of stress test Hyperlipidemia Hypertension Hypothyroidism Irritable bowel syndrome Lumbar foraminal stenosis Osteoporosis PONV (postoperative nausea and vomiting) SOB (shortness of breath) Past Surgical History: Procedure Laterality Date ARTHROPLASTY KNEE TOTAL Right 11/30/2017 Procedure: RIGHT TOTAL KNEE ARTHROPLASTY ; Surgeon: Rony Guerrero MD; Location: [facility] Main OR; Service: Orthopedic BACK SURGERY COLONOSCOPY JOINT REPLACEMENT lymphectomy SKIN GRAFT SPINAL FUSION TONSILLECTOMY Social History Socioeconomic History Marital status: Spouse name: Not on file Number of children: Not on file Years of education: Not on file Highest education level: Not on file Occupational History Not on file Social Needs Financial resource strain: Not on file Food insecurity Worry: Not on file Inability: Not on file Transportation needs Medical: Not on file Non-medical: Not on file Tobacco Use Smoking status: Former Smoker Packs/day: 1.00 Years: 4.00 Pack years: 4.00 Smokeless tobacco: Never Used Tobacco comment: in college Substance and Sexual Activity Alcohol use: Yes Alcohol/week: 3.0 standard drinks Types: 3 Glasses of wine per week Comment: one or more times a week Drug use: Never Sexual activity: Not Currently Lifestyle Physical activity Days per week: Not on file Minutes per session: Not on file Stress: Not on file Relationships Social connections Talks on phone: Not on file Gets together: Not on file Attends roman catholic service: Not on file Active member of club or organization: Not on file Attends meetings of clubs or organizations: Not on file Relationship status: Not on file Other Topics Concern Not on file Social History Narrative Not on file Family History Problem Relation Age of Onset Heart disease Mother Cancer Father Review of Systems Constitution: Negative for chills, decreased appetite, diaphoresis, fever, malaise/fatigue, night sweats, weight gain and weight loss. HENT: Negative. Negative for congestion, ear discharge, ear pain, hearing loss, hoarse voice, nosebleeds, odynophagia, sore throat, stridor and tinnitus. Eyes: Negative for blurred vision, discharge, double vision, pain, photophobia, redness, vision loss in left eye, vision loss in right eye, visual disturbance and visual halos. Cardiovascular: Positive for dyspnea on exertion. Negative for chest pain, claudication, cyanosis, irregular heartbeat, leg swelling, near-syncope, orthopnea, palpitations, paroxysmal nocturnal dyspnea and syncope. Respiratory: Positive for shortness of breath. Negative for cough, hemoptysis, sleep disturbances due to breathing, snoring, sputum production and wheezing. Endocrine: Negative for cold intolerance, heat intolerance, polydipsia, polyphagia and polyuria. Hematologic/Lymphatic: Negative for adenopathy and bleeding problem. Does not bruise/bleed easily. Skin: Negative. Negative for color change, dry skin, flushing, itching, nail changes, poor wound healing, rash, skin cancer, suspicious lesions and unusual hair distribution. Musculoskeletal: Positive for arthritis and back pain. Negative for falls, gout, joint pain, joint swelling, muscle cramps, muscle weakness, myalgias, neck pain and stiffness. Gastrointestinal: Positive for constipation and diarrhea. Negative for bloating, abdominal pain, anorexia, change in bowel habit, bowel incontinence, dysphagia, excessive appetite, flatus, heartburn, hematemesis, hematochezia, hemorrhoids, jaundice, melena, nausea and vomiting. Genitourinary: Positive for bladder incontinence and frequency. Negative for decreased libido, dysuria, flank pain, genital sores, hematuria, hesitancy, incomplete emptying, menorrhagia, missed menses, nocturia, non-menstrual bleeding, pelvic pain and urgency. Neurological: Negative for aphonia, brief paralysis, difficulty with concentration, disturbances in coordination, excessive daytime sleepiness, dizziness, focal weakness, headaches, light-headedness, loss of balance, numbness, paresthesias, seizures, sensory change, tremors, vertigo and weakness. Psychiatric/Behavioral: Positive for depression. Negative for altered mental status, hallucinations, hypervigilance, memory loss, substance abuse, suicidal ideas and thoughts of violence. The patient is nervous/anxious. The patient does not have insomnia. Allergic/Immunologic: Negative for environmental allergies, HIV exposure, hives and persistent infections. Vitals: 11/23/19 1225 BP: 124/77 Pulse: 71 Resp: 14 Temp: 99 F (37.2 C) SpO2: 92% Weight: 71.4 kg (157 lb 6.5 oz) Height: 5' Physical Exam Vitals signs and nursing note reviewed. Constitutional: General: She is not in acute distress. Appearance: She is well-developed. She is not diaphoretic. HENT: Head: Normocephalic and atraumatic. Right Ear: External ear normal. Left Ear: External ear normal. Nose: Nose normal. Mouth/Throat: Pharynx: No oropharyngeal exudate. Eyes: General: No scleral icterus. Right eye: No discharge. Left eye: No discharge. Conjunctiva/sclera: Conjunctivae normal. Pupils: Pupils are equal, round, and reactive to light. Neck: Musculoskeletal: Normal range of motion and neck supple. Thyroid: No thyromegaly. Vascular: No JVD. Trachea: No tracheal deviation. Cardiovascular: Rate and Rhythm: Normal rate and regular rhythm. Heart sounds: Normal heart sounds. No murmur. No friction rub. No gallop. Pulmonary: Effort: Pulmonary effort is normal. No respiratory distress. Breath sounds: Normal breath sounds. No stridor. No wheezing or rales. Chest: Chest wall: No tenderness. Abdominal: General: Bowel sounds are normal. There is no distension. Palpations: Abdomen is soft. There is no mass. Tenderness: There is no abdominal tenderness. There is no guarding or rebound. Hernia: No hernia is present. Musculoskeletal: Normal range of motion. General: No tenderness. Lymphadenopathy: Cervical: No cervical adenopathy. Skin: General: Skin is warm and dry. Coloration: Skin is not pale. Findings: No erythema or rash. Neurological: Mental Status: She is alert and oriented to person, place, and time. Cranial Nerves: No cranial nerve deficit. Motor: No abnormal muscle tone. Coordination: Coordination normal. Deep Tendon Reflexes: Reflexes are normal and symmetric. Reflexes normal. Psychiatric: Behavior: Behavior normal. Thought Content: Thought content normal. Judgment: Judgment normal. Rishi Carson DO documented in this encounter Karen Galeano RN - 11/25/2017 10:48 AM Rocky Hughes RN - 12/07/2019 7:26 AM EST Nursing Notes (unrecognized section and content) Patient Instructions for [facility]: Prior to surgery: Please contact your Surgeon's office for the scheduled time of your surgery. Report to the Surgery Family Waiting Area in the [place] area of [facility] 1 1/2-2 hours prior to your surgery. You may use the [employer] parking available at the Main Entrance/Blue Area of [facility] - a voucher for parking will be provided to you. One family member may accompany you back into the Pre-Op Area. Do not eat or drink anything after midnight or as directed, including gum, mints, and cough drops. No smoking after midnight. No alcohol 24 hours prior to your surgery. Please take any medications you have been instructed to take the morning of your surgery with small sips of water. Please be sure to wear comfortable, appropriate clothing. Please remove all jewelry and piercing's, including wedding rings. Leave all valuable items at home. Shower using anti-bacterial soap or as advised by your Surgeon's office Do not apply any makeup or lotions. Remove all nail haitian for surgeries involving extremities. Please remember to bring both your insurance card and a photo ID with you on the day of surgery. After your surgery: If you are having outpatient surgery - you must have a licensed cdl truck driver to take you home. The expectation is that this cdl truck driver will remain at the hospital for the duration of your procedure. You are advised to have a family member with you for at least 24 hours after being under Anesthesia. in this encounter Pt c/o low back pain radiating down BLE L>R. Denies N/T. P/P += documented in this encounter Dorothy Sin LISW-Jerson - 12/01/2017 3:27 PM Ambrocio Blunt, PT - 12/01/2017 8:52 AM Delvis Nunez MD - 11/30/2017 10:28 PM Marion Spear, PT - 12/08/2019 9:11 AM EST Consult Notes (unrecognized section and content) Associated Order(s): IP CONSULT TO UTILIZATION MANAGEMENT & CARE COORDINATION COMPLEX DISCHARGE Date: 12/01/2017 Time: 3:28 PM Patient Name: Jayashree Ferguson Date of : 1940 Sex: Female Referral made to [facility] for H[facility] due to pt's location. They have staffed pt with [facility]. [facility] ordered from [facility]. Discharge Plan Shared UM/CC and RN Source of Information: Patient Living Arrangements: Alone Support Systems: Spouse/significant other, Children, Family members, Friends/neighbors Functional Status: Moderate assistance Type of Residence: Private residence Prior to Admission Home Care Services: No Anticipated Discharge Plan Anticipated HME: Wheeled walker Anticipated Home Care Needs: Home health care Anticipated Facility Type: Home care Potential for Readmission Potential for Readmission: Yes Discharge Readiness Expected Discharge Date: 12/02/17 Formatting of this note may be different from the original. Physical Therapy PHYSICAL THERAPY EVALUATION NOTE Physical Therapy Assessment Body Structure and Function: Musculoskeletal impairment Explain Impairments: S/p Rt. TKA. Presents with post-op deficits in strength and ROM with increased pain and edema. Activities and Participation: Mobility limitation, Balance limitation and fall risk, ADL/IADL limitation Explain Limitations: Post-op deficits impair mobility. Environmental Factors: Home situation, Family/caregiver support Explain Environmental Factors: Environmental barrier of stairs and lives alone. Does have family support. Personal Factors: Awareness of own capacity and performance Explain Personal Factors: Motivated to participate with rehab. Rehab Potential: Good, For goals Activity Tolerance: Endurance does not limit participation in activity Skilled Therapy Needs After Discharge Are Skilled Therapy Services Needed After Discharge: Yes Intensity of Skilled Therapy: 2-3 days per week Anticipated Duration of Skilled Therapy: Duration 10 - 30 days DME Recommendation: Wheeled walker (Pediatric sized. Has std. walker but needs wheel kit.) DME Rationale: Patient's condition creates an increased risk of safety hazard without recommended equipment, Patient's condition prevents him/her from accomplishing ADL without recommended equipment, Unreasonable time frame to complete ADL without recommended equipment Outcomes Measures Prior Function - Basic Mobility Raw Score: 24 Points Prior Function - Basic Mobility % Impaired: 0% functionally impaired AM-PAC - Basic Mobility Raw Score: 20 Points AM-PAC - Basic Mobility % Impaired: 33.32% functionally impaired Knee ROM Right Knee Flexion:110 Right Knee Extension:-5 Left Knee Flexion: (WFL) Left Knee Extension: (WFL) Therapy Precautions Orthotic Devices: No Weight Bearing Status: X RLE: Wt bearing as tolerated General Rehab Precautions: Fall risk Balance Sitting Balance - Static: Sits without support for more than 30 seconds Sitting Balance - Dynamic: Moves / returns trunkal midpoint more than 2 inches in all planes Standing Balance - Static: Supports self independantly with both upper extremities Standing Balance - Dynamic: Moves / returns trunkal midpoint more than 2 inches in all planes Bed Mobility Supine to Sit: Modified independence (HOB elevated) Transfers Sit to Stand: Stand by assistance Stand Pivot Transfers: Stand by assistence Supervisor Pipeline: Wheeled walker, 1 person, Gait belt Gait/Locomotion Gait Assistance: Stand by assistance Assistive Device: Wheeled walker Distance: 250 Feet Pattern: Step through, R impaired heel strike, L impaired heel strike, R decreased step length, L decreased step length, Over reliance on upper extremities Home Living Type of Home: House Home Layout: Two level, Bed/bath upstairs, 1/2 bath on main level, Other (Comment) (No stairs to enter) Bathroom Shower/Tub: Walk-in shower Bathroom Toilet: Standard Bathroom Equipment: Other (Comment) (No equipment) Home Equipment: Walker, Buildings And Grounds Coordinator Additional Comments: Did not attend pre-op class Prior Level of Function Level of [place]: Independent with ADLs and functional transfers, Independent with homemaking with ambulation Lives With: Alone Receives Help From: Family, Friend(s) ADL Assistance: Independent Homemaking Assistance: Independent Vocational: Retired Past Medical History: Diagnosis Date Anxiety Cancer (HCC) melanoma Complication of anesthesia Hyperlipidemia Hypertension PONV (postoperative nausea and vomiting) Past Surgical History: Procedure Laterality Date ARTHROPLASTY KNEE TOTAL Right 11/30/2017 Procedure: RIGHT TOTAL KNEE ARTHROPLASTY ; Surgeon: Rony Guerrero MD; Location: [facility] Main OR; Service: Orthopedic lymphectomy SKIN GRAFT SPINAL FUSION PHYSICAL THERAPY TREATMENT NOTE Total Treatment Time (Total Session Time): 20 Minutes Timed Code Treatment Minutes: 10 Minutes Neuromuscular Reeducation Gait Training Skilled Intervention: Verbal cues for heel-toe gait to facilitate step-through gait pattern. Cued to increase knee flexion/extension ROM with gait. Pt. did not fatigue with ambulation but did require cues to minimize support through UE to facilitate improved WB through LE. Therapeutic Activities Bed Mobility Transfers Skilled Intervention: Verbal cues for device management and footwork sequencing to facilitate stand-pivot turn. Therapeutic Exercises For complete objective data, detailed plan of care and patient education refer to: PT EVALUATION flow sheet, PT TREATMENT flow sheet, patient Plan of Care, Plan of Care progress note, and Patient Education. This note stands as the current Discharge Summary upon patient discharge from the hospital or completion of Physical Therapy Plan Formatting of this note may be different from the original. Delvis Coates MD [facility] Hospitalists Medical Consultation Patient Name:Jayashree Ferguson MR #:[id number] :1940 Admit Date: [id number] Physicians: Nai Alegre MD (Family); No ref. provider found (Referring) Perpetual Assessment: Jayashree Ferguson is a 77 y.o. female who presented on 11/30/2017 with right knee pain and osteoarthritis. ASSESSMENT AND PLAN Primary localized osteoarthrosis, lower leg -Ms. Ferguson presented to [facility] on 11/30/17 with right knee pain secondary to osteoarthritis. -S/P Right TKA per Dr. Guerrero/Ortho -Dr. Guerrero to manage post-op care, pain meds and DVT prophylaxis. -Cont Roivacaine block -Cont Decadron, daily x 2 days -Cont Lyrica, daily -Cont Oxycodone prn pain -Cont Senna-S,bid -Consult PT -DVT: Lovenox sq/SCD's -GI: Protonix, daily Essential hypertension -BP stable -Cont Cardizem, bid -Cont Losartan,daily -Cont Labetalol, daily Hyperlipidemia -Cont Lipitor, nightly Hypothyroidism -Cont Synthroid, daily Anxiety -Cont Zoloft, q hs Osteoporosis -Cont Vitamin D3, daily 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 -Hold Aspirin until OK to take per Ortho HISTORY CC: MEDICAL MANAGEMENT HPI: Jayashree Ferguson is a 77 y.o. female with PMHx significant for right knee osteoarthritis, htn, hld, hypothyroidism, anxiety and osteoporosis, Ms. Ferguson presented to [facility] on 11/30/17 with right knee pain secondary to osteoarthritis. Now S/P Right TKA per Dr. Guerrero. Ms. Ferguson is very drowsy on my arrival and has no specific complaints. ROS:>>>>>>>>>> The following system(s) were reviewed. Pertinent positive and negative findings are noted in the HPI. Const Eyes ENT Resp CV GI Neuro Musc Skin Psych Endo Allergy Heme/Lymph PMH/PSH/SH/FH: Past Medical History: Diagnosis Date Anxiety Cancer (HCC) melanoma Complication of anesthesia Hyperlipidemia Hypertension PONV (postoperative nausea and vomiting) Past Surgical History: Procedure Laterality Date lymphectomy SKIN GRAFT SPINAL FUSION History reviewed. No pertinent family history. Social History Social History Marital status: Spouse name: N/A Number of children: N/A Years of education: N/A Occupational History Not on file. Social History Main Topics Smoking status: Former Smoker Packs/day: 1.00 Years: 4.00 Smokeless tobacco: Never Used Comment: in college Alcohol use 1.8 oz/week 3 Glasses of wine per week Drug use: No Sexual activity: Not on file Other Topics Concern Not on file Social History Narrative No narrative on file Living Arrangements: Alone Support Systems: Spouse/significant other, Children, Family members, Friends/neighbors Functional Status: Moderate assistance Allergy Information: I have reviewed the patient's allergies. Sulfa (sulfonamide antibiotics); Opioids - morphine analogues; and Penicillins Home Medications: Outpatient Prescriptions as of 11/30/2017 Medication Sig acetaminophen (TYLENOL) 500 MG tablet Take 500 mg by mouth every 6 (six) hours as needed for pain. aspirin 81 MG EC tablet Take 81 mg by mouth daily evening . atorvastatin (LIPITOR) 10 MG tablet Take 10 mg by mouth nightly . cholecalciferol, vitamin D3, 1,000 unit tablet Take 1,000 Units by mouth daily. diltiazem (CARDIZEM) 120 MG tablet Take 120 mg by mouth 2 (two) times a day. ibuprofen (ADVIL,MOTRIN) 200 MG tablet Take 400 mg by mouth every 6 (six) hours as needed for pain. labetalol (NORMODYNE) 100 MG tablet Take 100 mg by mouth daily. levothyroxine (SYNTHROID, LEVOTHROID) 75 MCG tablet Take 75 mcg by mouth once daily. losartan (COZAAR) 100 MG tablet Take 100 mg by mouth daily. sertraline (ZOLOFT) 25 MG tablet Take 37.5 mg by mouth nightly Pt takes 1.5 pills daily at hs . FLU VACC [id number] UP,/PF (FLUZONE HIGH-DOSE , PF, IM) Inject 0.5 mL into the shoulder, thigh, or buttocks once 09/05/17 . PHYSICAL EXAMINATION << >>>>> Vital Signs: Temp: [97.6 F (36.4 C )-99.1 F (37.3 C )] 98.2 F (36.8 C ) Heart Rate: [61-72] 66 Resp: [11-17] 14 BP: (116-149)/(46-85) 122/76 GENERAL: a&ox3 wd, wn, elderly female in nad EYES: Conjunctiva and sclera clear, eomi, perrl, ENT: Hearing intact. Pharynx clear NECK: No adenopathy or thyromegaly CV: RRR, no murmur. No JVD. No edema RESP: Clear, no rales, rhonchi, wheezes or increase in respiratory effort, no use of accessory muscles GI: Non-distended, +BS, soft, non-tender. No guarding, masses or rebound MUSC: Normal ROM without deformity SKIN: Warm and dry. No rashes. NEURO: Alert, Ox3. Grossly normal motor and sensory exam. No focal deficits PSYCH: Mood and affect are appropriate. Cooperative. Laboratory and Additional Data Acquired or Reviewed: Laboratory Transcriptions Radiology Microbiology Cardiology Outside Records Medications Family Time Spent: TOTAL TIME: 40 MINUTES in this encounter Physical Therapy PHYSICAL THERAPY EVALUATION NOTE Skilled Therapy Needs After Discharge Anticipate Resolution of Current Assessment Limitations Including: Pain Are Skilled Therapy Services Needed After Discharge: No Rehab Potential: Good, For goals Outcomes Measures Prior Function - Basic Mobility Raw Score: 24 Points Prior Function - Basic Mobility % Impaired: 0% functionally impaired AM-PAC - Basic Mobility Raw Score: 18 Points AM-PAC - Basic Mobility % Impaired: 40.47% functionally impaired Physical Therapy Assessment History: The following factors influence the patient's participation in the PT plan of care: Personal factors: age Environmental factors: steps to enter home, lives alone and no local family The following co-morbidities (from this admission or prior) influence the patient's participation in this plan of care: Past Medical History: Diagnosis Date Anxiety Arthritis Back pain Bladder problem freq / leakage Cancer (HCC) melanoma Cataract removed Complication of anesthesia Depression Disease of thyroid gland History of echocardiogram History of stress test Hyperlipidemia Hypertension Hypothyroidism Irritable bowel syndrome Lumbar foraminal stenosis Osteoporosis PONV (postoperative nausea and vomiting) SOB (shortness of breath) Number of History elements affecting this patient's PT plan of care: 1-2 Examination of Body Systems: The patient presents with impairments of strength, ROM, pain. These impairments result in limitations of gait and stair-climbing. These impairments result in restrictions of household mobility, community mobility and leisure activities. Number of Body Systems elements affecting this patient's PT plan of care: 3 or more Clinical Presentation: The patient's clinical presentation for this PT evaluation is evolving as evidenced by current PT documentation. Activity Tolerance Activity Tolerance: Endurance does not limit participation in activity Therapy Precautions Orthotic Devices: Yes Spine / Trunk: LSO General Rehab Precautions: Back, Fall risk Balance Sitting Balance - Static: (Independent) Sitting Balance - Dynamic: (Independent) Standing Balance - Static: (Supervision) Standing Balance - Dynamic: (Stand by assist) Bed Mobility Rolling: Supervision Supine to Sit: Supervision Transfers Sit to Stand: Stand by assistance Bed to Chair: Stand by assistance Supervisor Pipeline: Wheeled walker, 1 person, Gait belt Gait/Locomotion Gait Assistance: Stand by assistance Assistive Device: Wheeled walker, None Distance: 250 Feet Pattern: Antalgic Home Living Type of Home: House Home Layout: Multi-level, Laundry in basement, Bed/bath upstairs, Stairs to enter with rails, Stairs to enter without rails Bathroom Shower/Tub: Walk-in shower Bathroom Toilet: Raised Bathroom Equipment: Other (Comment)(continuous pickling line pickler to wash feet) Home Equipment: Walker, Cane, Buildings And Grounds Coordinator Prior Level of Function Level of [place]: Independent with ADLs and functional transfers, Independent with homemaking with ambulation Lives With: Alone Receives Help From: Other (Comment) Leisure: Hobbies-yes (Comment)(quilting) Comments: was not using cane or walker before surgery (+) Past Medical History: Diagnosis Date Anxiety Arthritis Back pain Bladder problem freq / leakage Cancer (HCC) melanoma Cataract removed Complication of anesthesia Depression Disease of thyroid gland History of echocardiogram History of stress test Hyperlipidemia Hypertension Hypothyroidism Irritable bowel syndrome Lumbar foraminal stenosis Osteoporosis PONV (postoperative nausea and vomiting) SOB (shortness of breath) Past Surgical History: Procedure Laterality Date ARTHROPLASTY KNEE TOTAL Right 11/30/2017 Procedure: RIGHT TOTAL KNEE ARTHROPLASTY ; Surgeon: Rony Guerrero MD; Location: [facility] Main OR; Service: Orthopedic BACK SURGERY COLONOSCOPY JOINT REPLACEMENT lymphectomy POSTERIOR LUMBAR INTERBODY FUSION SINGLE LEVEL N/A 12/07/2019 Procedure: LUMBAR FIVE-SACRAL ONE FACETECTOMY AND FUSION, REPLACE HARDWARE; Surgeon: Mariana Murillo MD; Location: [facility] NEURO OR; Service: Neurological SKIN GRAFT SPINAL FUSION TONSILLECTOMY For complete objective data, detailed plan of care and patient education refer to: PT EVALUATION flow sheet, PT TREATMENT flow sheet, patient Plan of Care, Plan of Care progress note, and Patient Education. This note stands as the current Discharge Summary upon patient discharge from the hospital or completion of Physical Therapy Plan of Care. Occupational Therapy OCCUPATIONAL THERAPY EVALUATION NOTE Skilled Therapy Needs After Discharge Anticipate Resolution of Current Assessment Limitations Including: Pain Are Skilled Therapy Services Needed After Discharge: No DME Recommendation: None Rehab Potential: Good, For goals Outcomes Measures Prior Function Daily Activity: Raw Score: 24 Prior Function Daily Activity % Impaired: 0% functionally impaired AM-PAC Daily Activity: Raw Score: 19 AM-PAC Daily Activity % Impaired: 42.80% functionally impaired Occupational Therapy Assessment The patient presents with neurological impairment(s) in spine which create performance deficits including strength, balance and pain. These performance impairments limit participation in UE dressing, LE dressing, home management and functional mobility in the chosen occupational roles of premorbid level individual. The patient's co morbidities do affect patient performance in the above activities and roles. The patient's family/caregiver support is a ciso for return to prior level of function. The patient's awareness of own capacity and performance is a ciso to return to prior level of function. During the assessment, minimal to moderate modification of task was required and several treatment options were identified in the plan of care. This consultation required expanded review of the medical and therapy history. Activity Tolerance Activity Tolerance: Endurance does not limit participation in activity Therapy Precautions Orthotic Devices: Yes Spine / Trunk: LSO General Rehab Precautions: Back Cognition Overall Cognitive Status: Within Functional Limits Arousal/Alertness: Appropriate responses to stimuli Orientation Level: Oriented X4 Executive functioning: WFL Safety Judgment: Good awareness of safety precautions Problem Solving: Able to problem solve independently Attention: Attends to distracted environment Hearing Status: WFL Social Interaction: WFL Skilled Intervention: Pleasant and motivated. Good awareness of back precautions. ADL/IADL Feeding: Independent Grooming : Stand by assistance UE Dressing: Min Skilled Intervention: Pt stood at sink for grooming tasks with SBA, good balance demonstrated when removing UE support from AD. Min A to don LSO brace while seated EOB. Bed Mobility Supine to Sit: Stand by assistance Skilled Intervention: Verbal cueing for log roll technique for transition to EOB. Functional Transfers Sit to Stand: Stand by assistance Bed to Chair Transfers: Stand by assist Home Living Type of Home: House Home Layout: Multi-level, Laundry in basement, Bed/bath upstairs, Stairs to enter with rails, Stairs to enter without rails Bathroom Shower/Tub: Walk-in shower Bathroom Toilet: Raised Bathroom Equipment: Other (Comment)(continuous pickling line pickler to wash feet) Home Equipment: Walker, Cane, Buildings And Grounds Coordinator Prior Level of Function Level of [place]: Independent with ADLs and functional transfers, Independent with homemaking with ambulation Lives With: Alone Receives Help From: Other (Comment) Leisure: Hobbies-yes (Comment)(quilting) Comments: was not using cane or walker before surgery (+) Past Medical History: Diagnosis Date Anxiety Arthritis Back pain Bladder problem freq / leakage Cancer (HCC) melanoma Cataract removed Complication of anesthesia Depression Disease of thyroid gland History of echocardiogram History of stress test Hyperlipidemia Hypertension Hypothyroidism Irritable bowel syndrome Lumbar foraminal stenosis Osteoporosis PONV (postoperative nausea and vomiting) SOB (shortness of breath) Past Surgical History: Procedure Laterality Date ARTHROPLASTY KNEE TOTAL Right 11/30/2017 Procedure: RIGHT TOTAL KNEE ARTHROPLASTY ; Surgeon: Rony Guerrero MD; Location: [facility] Main OR; Service: Orthopedic BACK SURGERY COLONOSCOPY JOINT REPLACEMENT lymphectomy POSTERIOR LUMBAR INTERBODY FUSION SINGLE LEVEL N/A 12/07/2019 Procedure: LUMBAR FIVE-SACRAL ONE FACETECTOMY AND FUSION, REPLACE HARDWARE; Surgeon: Mariana Murillo MD; Location: [facility] NEURO OR; Service: Neurological SKIN GRAFT SPINAL FUSION TONSILLECTOMY For complete objective data, detailed plan of care and patient education refer to: OT EVALUATION flow sheet, OT TREATMENT flow sheet, patient Plan of Care, Plan of Care progress note, and Patient Education. This note stands as the current Discharge Summary upon patient discharge from the hospital or completion of Occupational Therapy Plan of Care. Associated Order(s): IP CONSULT TO CONSULTING MANAGER ORTHOTICS AND PROSTHETICS Consult received for LSO Patient fit with an [place] LSO Fit/function are appropriate at this time Education provided on wear/care/don/doff Pamphlet placed at bedside All questions were answered at this time Follow up PRN [phone] Associated Order(s): IP CONSULT TO HOSPITALIST [facility] Consult Note 12/07/19 Jayashree Ferguson 1940 [id number] Assessment/Plan: Jayashree Ferguson is a 79 y.o. female with a history of HTN, hypothyroidism, depression, IBS and lumbar spinal stenosis s/p prior lumbar fusion who presented to [facility] 12/07/2019 for planned L5-S1 facectectomy and fusion with hardware replacement by Dr. Murillo (Neurosurgery). [facility] was consulted for post op medical management. Pre op Cr 1.03, Hgb 13.3. 1. Lumbar spinal stenosis: s/p prior lumbar fusion. Recurrent symptoms that failed conservative measures. S/p L5-S1 facectectomy and fusion with hardware replacement by Dr. Murillo (Neurosurgery) on 12/07/19. Pt not wanting to use IV dilaudid FINANCE ADMINISTRATOR due to N/V as opiates make her sick. Bowel regimen. PT/OT consulted. Neurosurgery following. 2. Acute respiratory insufficiency: Secondary to anesthesia and narcotics. Requiring 2L oxygen post op. Encouraged IS use. Wean oxygen as able for goal sat >92%. 3. Post op nausea, vomiting: in setting of anesthesia and IV narcotics. Scop patch, IV PRN Zofran. Added IV PRN Compazine for breakthrough nausea. 4. Bradycardia: mild with low of 53 bpm. Asymptomatic, likely in setting of sedation. Held BB for now. Continued CCB with hold parameters. 5. Hypertension: BP lower post op so held BB. Continued CCB (verfied that its ER BID) with hold parameters. Restarted ARB on 12/08/19 with hold parameters. Titrate prn. 6. Depression: per history. Mood stable. Continued home Zoloft. 7. Hypothyroidism: per ihstory. Continued home Synthroid. 8. DVT prophylaxis: SCDs per Neurosurgery. Thank you for allowing us to participate in the care of your patient. Do not hesitate to contact us with questions. Before 6 pm, please contact the provider listed in the treatment team. After 6 pm, please contact [phone] for any questions or concerns. Current living situation: home Expected Disposition: TBD, therapy consulted. Estimated discharge date: TBD Chief Complaint / Reason for Consult: Lower back pain with pain to BLE. History of Present Illness: Jayashree Ferguson is a 79 y.o. female with a history of HTN, hypothyroidism, depression, IBS and lumbar spinal stenosis s/p prior lumbar fusion who presented to [facility] 12/07/2019 for planned L5-S1 facectectomy and fusion with hardware replacement by Dr. Murillo (Neurosurgery). [facility] was consulted for post op medical management. She is s/p lower back surgery and complains of lower back pain but the pain to her legs is better. She is nauseated and did vomit once in the PACU. She denies vomiting since. She has the Scop patch on but does not feel like it has helped much. She was having diarrhea prior to surgery as she endorses a history of IBS and when she is nervous is it more diarrhea than constipation. She denies urinary issues prior to surgery. She denies recent fevers, chills. She denies CP or SOB. No lightheadedness reported. No other complaints reported. ROS: 10 systems were reviewed and negative, except as noted above. Past Medical, Surgical, Social, Family History: Past Medical History: Diagnosis Date Anxiety Arthritis Back pain Bladder problem freq / leakage Cancer (HCC) melanoma Cataract removed Complication of anesthesia Depression Disease of thyroid gland History of echocardiogram History of stress test Hyperlipidemia Hypertension Hypothyroidism Irritable bowel syndrome Lumbar foraminal stenosis Osteoporosis PONV (postoperative nausea and vomiting) SOB (shortness of breath) Past Surgical History: Procedure Laterality Date ARTHROPLASTY KNEE TOTAL Right 11/30/2017 Procedure: RIGHT TOTAL KNEE ARTHROPLASTY ; Surgeon: Rony Guerrero MD; Location: [facility] Main OR; Service: Orthopedic BACK SURGERY COLONOSCOPY JOINT REPLACEMENT lymphectomy POSTERIOR LUMBAR INTERBODY FUSION SINGLE LEVEL N/A 12/07/2019 Procedure: LUMBAR FIVE-SACRAL ONE FACETECTOMY AND FUSION, REPLACE HARDWARE; Surgeon: Mariana Murillo MD; Location: [facility] NEURO OR; Service: Neurological SKIN GRAFT SPINAL FUSION TONSILLECTOMY Social History Socioeconomic History Marital status: Spouse name: Not on file Number of children: Not on file Years of education: Not on file Highest education level: Not on file Occupational History Not on file Social Needs Financial resource strain: Not on file Food insecurity Worry: Not on file Inability: Not on file Transportation needs Medical: Not on file Non-medical: Not on file Tobacco Use Smoking status: Former Smoker Packs/day: 1.00 Years: 4.00 Pack years: 4.00 Smokeless tobacco: Never Used Tobacco comment: in college Substance and Sexual Activity Alcohol use: Yes Alcohol/week: 3.0 standard drinks Types: 3 Glasses of wine per week Comment: one or more times a week Drug use: Never Sexual activity: Not Currently Lifestyle Physical activity Days per week: Not on file Minutes per session: Not on file Stress: Not on file Relationships Social connections Talks on phone: Not on file Gets together: Not on file Attends roman catholic service: Not on file Active member of club or organization: Not on file Attends meetings of clubs or organizations: Not on file Relationship status: Not on file Other Topics Concern Not on file Social History Narrative Not on file Family History Problem Relation Age of Onset Heart disease Mother Cancer Father Current Medications: Jayashree Ferguson Medication Instructions Prior to Surgery ANGELLA:[id number] Printed on:12/07/19 1535 Medication Information Take last dose on Take the morning of surgery Comment(s) acetaminophen (TYLENOL) 500 MG tablet Take 1,000 mg by mouth every 8 (eight) hours as needed for pain . aspirin 81 MG EC tablet Take 81 mg by mouth every evening . atorvastatin (LIPITOR) 10 MG tablet Take 10 mg by mouth nightly . cholecalciferol, vitamin D3, 2,000 unit cap Take 2,000 Units by mouth every evening . diltiazem (TIAZAC) 120 MG 24 hr capsule Take 120 mg by mouth 2 (two) times a day . labetalol (NORMODYNE) 100 MG tablet Take 100 mg by mouth every morning . levothyroxine (SYNTHROID, LEVOTHROID) 75 MCG tablet Take 75 mcg by mouth 5 (five) times a week Tuesday through Tuesday . levothyroxine (SYNTHROID, LEVOTHROID) 75 MCG tablet Take 37.5 mcg by mouth twice weekly on Tuesday and Tuesday . losartan (COZAAR) 100 MG tablet Take 100 mg by mouth every morning . sertraline (ZOLOFT) 50 MG tablet Take 50 mg by mouth every morning . therapeutic multivitamin (THERAGRAN) tablet Take 1 tablet by mouth every evening . Physical Exam: BP (!) 117/59 (BP Location: Right arm, Patient Position: Lying) Pulse 70 Temp 97.5 F (36.4 C) (Oral) Resp 12 Ht 5' Wt 71.3 kg (157 lb 3 oz) SpO2 94% BMI 30.70 kg/m General: NAD, alert. Pale. Eyes: gaze conjugate. ENT: MMM. Cardiovascular: RRR, no murmurs or BLE edema. Palpable peripheral pulses. Respiratory: Clear to auscultation, unlabored on oxygen. Gastrointestinal: Soft, non tender, BS+. Genitourinary: no suprapubic tenderness. Musculoskeletal: No cyanosis. Skin: warm, dry. Lumbar dressing CDI, 2 hemovacs noted. Neuro: Alert, oriented x3, strength intact. Psych: calm, cooperative. Labs, Imaging, and Studies reviewed: Invalid input(s): MAG MELVIN Associated attestation - Lisa Multani MD - 12/07/2019 4:38 PM EST I discussed the case with Diamond Edwards CNP on 12/07/2019. I individually evaluated Jayashree Ferguson and agree with the documentation below. I have reviewed labs, imaging, vital signs, and prior documentation including applications sales consultant recommendations and summarized by me as below. Long history of lumbar spinal stenosis with prior remote fusion. She has had recurrence of her lumbar pain and failed conservative therapy. Presented for planned neurosurgical intervention by Dr. Murillo. 1) Lumbar spinal stenosis: s/p operative intervention by Dr. Murillo 12/07/19. [address] Rest of care per NSGY. 2) Acute respiratory insufficiency: incentive spirometer, wean to RA as able. 3) Acute pain: started on hydromorphone FINANCE ADMINISTRATOR pump post-operatively. Monitor respiratory status closely. 4) Post-op nausea vomiting: likely due to anesthesia and opioid pain medications. Scopolamine patch, zofran, and compazine continued. 5) Bradycardia: sinus stormy, in the 50's. Held BB for now, monitor.documented in this encounter [facility] - Martha Blanca, OT - 12/01/2017 12:30 PM ESTQuick Note - Sadie White PA-Caro - 12/01/2017 10:51 AM ESTOp Note - Rony Guerrero MD - 12/01/2017 7:50 AM EST Miscellaneous Notes (unrecog nized section and content) OCCUPATIONAL THERAPY VISIT [facility] NOTE Attempted to see patient at this time, but unable secondary to: OT Visit [facility]: Refused. Will follow up as appropriate. The patient has been prescribed an opioid analgesic that exceeds the limits set forth in the opioid prescribing rules for acute pain. Treatment with non-opioid medications is not a suitable alternative given the patient's condition. The patient meets exception criteria for: exceeding the 30 MED per day rule AND exceeding the 5 or 7 day rule for prescribing narcotic medications because: he/she suffers from a surgical outcome that cannot be managed within the 30 MED average limit and requires more than 5 or 7 day duration because of her total joint arthroplasty that will require extensive rehabilitation therapy. This is the lowest dose and duration consistent with the patient's medical condition. The prescribed dose and/or duration is the level necessary to therapeutically treat the patient's pain. The patient was advised of the risks and benefits of opioid medications, including the potential for addiction. This was discussed with the patient's surgeon, Rony Guerrero MD. Associated Problem(s): Primary localized osteoarthrosis, lower leg -S/P right TKA -PT/OT -Pain control -DVT ppx- Ecotrin Formatting of this note may be different from the original. Total Knee Replacement Procedure Note Indications: The patient was treated with nonoperative modalities which did not fully relieve the symptoms. As such, the risks, benefits, and alternatives to surgery were explained to the patient, and the patient elected to proceed with the procedure stated above. Procedure: Right Total Knee Arthroplasty Surgeon: Rony Guerrero Assistants: GIANCARLO Sidhu Anesthesia: Spinal anesthesia ASA Class: none Procedure Details The patient was brought to the operating room theater and was anesthetized as per the anesthesia notes. Patient was placed supine on the operative table. An unsterile tourniquet was placed on the upper thigh. The operative limb was then prepped and draped in a sterile fashion. All bony prominences were padded. A time-out was taken to verify the patient, site of surgery, administration of preoperative antibiotics, and any pertinent allergies. Attention was then turned toward the incision. A midline incision was made centered over the patella. This was taken down to the fascia of the quadriceps mechanism. A medial parapatellar arthrotomy was then performed. Synovectomies were then performed, as needed, to expose the bony surfaces. Attention was then turned toward patellar preparation. A flat resection was performed on the patella to take it to an approximate thickness of 14 to 15 mm. The patella was then instrumented with the instruments for the asymmetric patellar component. We then placed the trial component. We then flexed the knee. The ACL was resected, as well as the anterior horn of the lateral meniscus. Then, using intramedullary referencing, an 8 mm resection was performed from the distal femoral condyles with a 5 degree valgus angle. We then aligned the femoral sizer along the transepicondylar axis of the femur and used the stylus to measure the size of the femur. Based on this measurement, we made our pinholes for the cutting block, placed our cutting block, and then performed our finishing cuts on the femur. The knee was then hyperflexed. Tibial retractors were placed, and using intramedullary referencing, a 9 mm resection was performed from the high point on the lateral side of the tibia, perpendicular to the anatomic axis of the tibia. The menisci were removed bilaterally and any osteophytes were removed from the posterior femur and the intercondylar notch of the femur. Attention was then turned toward trialing. The tibial component, polyethylene trial, and femoral component were placed in the knee, and the knee was then taken into extension and flexion. Once we achieved balanced flexion and extension gaps, we set the rotation for the tibial and femoral components. We then again trialed the various polyethylene trials until we achieved maximum stability with full range of motion. We also checked patellar tracking and performed a lateral retinacular release if any patellar maltracking was noted. Attention was then turned toward cementation. All trial components were removed, and the bony surfaces were pulsed lavage and dried. We cemented tibial, femoral, and patellar components, respectively, and placed the real polyethylene component at the time of cementation. After all cement was cleaned, we turned attention to closure. The wound was irrigated with a total of 4 liters of irrigation. The arthrotomy was closed with #1 PDS in an interrupted fashion and #2 Quill in a running fashion, respectively. The deep fat was then closed with #1 Vicryl, and the subcutaneous tissue was closed with #0 Quill. Finally, the skin was closed with 2-0 Quill. The patient was placed in a sterile dressing and transferred from the operating table to the PACU bed. The tourniquet was applied at a pressure of 250 mmHg at the start of the case and released during the application of the dressing.The patient was placed in a sterile dressing and transferred from the operating table to the PACU bed. The patient was then transported to the PACU in stable condition without complication. Findings: See Above Estimated Blood Loss: Minimal Drains: None Total IV Fluids: per anesthesia notes Specimens: * No specimens in log * Implants: Implant Name Type Inv. Item Serial No. Management Instructor Lot No. LRB No. Used CEMENT BONE RADIOPAQUE SIMPLEX P SINGLE DOSE - [id number] Cement CEMENT BONE RADIOPAQUE SIMPLEX P SINGLE DOSE BOZENA OR [id number] Right 2 INSERT SZ2-11 TIBIAL CR X3 TRIATHLON - [id number] INSERT SZ2-11 TIBIAL CR X3 TRIATHLON BOZENA OR [id number] Right 1 COMPONENT 2 FEM CR RT CEMENTED TRIATHLON - [id number] COMPONENT 2 FEM CR RT CEMENTED TRIATHLON BOZENA OR [id number] Right 1 PATELLA 32MM ASYMMETRIC X3 TRIATHLON - [id number] PATELLA 32MM ASYMMETRIC X3 TRIATHLON BOZENA OR [id number] Right 1 BASEPLATE 2 TIB PRIMARY TRIATHLON - [id number] BASEPLATE 2 TIB PRIMARY TRIATHLON BOZENA OR [id number] Right 1 Complications: None Disposition: PACU - hemodynamically stable. Condition: stable Post Operative: The patient has been prescribed an opioid analgesic that exceeds the limits set forth in the opioid prescribing rules for acute pain. Treatment with non-opioid medications is not a suitable alternative given the patient's condition. The patient meets exception criteria for: exceeding the 30 MED per day rule AND exceeding the 5 or 7 day rule for prescribing narcotic medications because: he/she suffers from a surgical outcome that cannot be managed within the 30 MED average limit and requires more than 5 or 7 day duration because recent knee surgery. This is the lowest dose and duration consistent with the patient's medical condition. The prescribed dose and/or duration is the level necessary to therapeutically treat the patient's pain. The patient was advised of the risks and benefits of opioid medications, including the potential for addiction. 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 Ferguson presented to [facility] on 11/30/17 with right knee pain secondary to osteoarthritis. -S/P Right TKA per Dr. Guerrero/Ortho -Dr. Guerrero to manage post-op care, pain meds and DVT prophylaxis. -Cont Roivacaine block -Cont Decadron, daily x 2 days -Cont Lyrica, daily -Cont Oxycodone prn pain -Cont Senna-S,bid -Consult PT -DVT: Lovenox sq/SCD's -GI: Protonix, dailyin this encounter Patient Instructions for [facility]: Prior to surgery: Please contact your Surgeon's office for the scheduled time of your surgery. Report to the Surgery Family Waiting Area in the [facility] 1 1/2-2 hours prior to your surgery. You may use the [employer] parking available at the Main Entrance/[place] Area of [facility] - a voucher for parking will be provided to you. One family member may accompany you back into the Pre-Op Area. USE VALLET AT THE [place] ENTRANCE. CHECK IN ON THE FIRST FLOOR OF THE [place] TOWER. No smoking after midnight. No alcohol 24 hours prior to your surgery. Please take any medications you have been instructed to take the morning of your surgery with small sips of water. Please be sure to wear comfortable, appropriate clothing. Please remove all jewelry and piercing's, including wedding rings. Leave all valuable items at home. Shower using anti-bacterial soap or as advised by your Surgeon's office Do not apply any makeup or lotions. Remove all nail haitian for surgeries involving extremities. Please remember to bring both your insurance card and a photo ID with you on the day of surgery. After your surgery: If you are having outpatient surgery - you must have a licensed cdl truck driver to take you home. The expectation is that this cdl truck driver will remain at the hospital for the duration of your procedure. You are advised to have a family member with you for at least 24 hours after being under Anesthesia. documented in this encounter Addended by: LOIS GARCIA on: 09/26/2019 11:49 AM Modules accepted: Orders Patient Instructions for [facility]: Prior to surgery: Please contact your Surgeon's office for the scheduled time of your surgery. Report to the Surgery Family Waiting Area in the [place] area of [facility] 1 1/2-2 hours prior to your surgery. You may use the [employer] parking available at the Main Entrance/[place] Area of [facility] - a voucher for parking will be provided to you. One family member may accompany you back into the Pre-Op Area. Do not eat or drink anything after midnight or as directed, including gum, mints, and cough drops. No smoking after midnight. No alcohol 24 hours prior to your surgery. Please take any medications you have been instructed to take the morning of your surgery with small sips of water. Please be sure to wear comfortable, appropriate clothing. Please remove all jewelry and piercing's, including wedding rings. Leave all valuable items at home. Shower using anti-bacterial soap or as advised by your Surgeon's office Do not apply any makeup or lotions. Remove all nail haitian for surgeries involving extremities. Please remember to bring both your insurance card and a photo ID with you on the day of surgery. After your surgery: If you are having outpatient surgery - you must have a licensed cdl truck driver to take you home. The expectation is that this cdl truck driver will remain at the hospital for the duration of your procedure. You are advised to have a family member with you for at least 24 hours after being under Anesthesia. dosana in this encounter Patient reports that she has not been taking any narcotic pain medication while admitted and would like to have a small amount of Tramadol to utilize for pain management if necessary at discharge instead of [place] so I have sent electronic script for Tramadol to [facility] Discharge Pain control: Due to pain control needs following Procedure(s): LUMBAR FIVE-SACRAL ONE FACETECTOMY AND FUSION, REPLACE HARDWARE surgery, patient requires more than 30MED per day to adequately control acute postoperative pain. Has been provided appropriate prescription(s), see AVS and final medication reconciliation documentation. Patient has been instructed on non opioid medication and non medication pain control strategies as well. Additionally patient will need greater than a 7 day supply, due to the nature of the postoperative pain and has been given a tapering dosage plan, including multiple prescriptions to be filled at set intervals, when appropriate, see AVS and final medication reconciliation documentation. If multiple prescriptions were given to the patient, they also received instruction in writing that all Rx should be turned in to the pharmacy at the same time and that lost Rx would not be replaced. SHREE VAZQUEZ KETTY [id number] 1940 DATE 12/07/2019 OPERATIVE REPORT SURGEON MARIANA MURILLO MD STEEL ENGRAVER JOSE HEART PA-C There were no qualified surgical residents available to assist. ANESTHESIA General endotracheal. PREOPERATIVE DIAGNOSES L5-S1 stenosis, lumbar instability, spondylolisthesis. POSTOPERATIVE DIAGNOSES L5-S1 stenosis, lumbar instability, spondylolisthesis. OPERATION 1. L5-S1 posterolateral arthrodesis. 2. L5-S1 laminectomy, medial facetectomy, bilateral foraminotomy. 3. L5-S1 internal fixation with [employer] spinal hardware system. 4. Utilization of [place] allograft. ESTIMATED BLOOD LOSS 100 cc. COMPLICATIONS None. COUNTS Correct. DRAINS Two drains were used. HISTORY Jayashree Ferguson is a 79-year-old female who had a previous lumbar fusion at L5-S1 and developed restenosis at that level. She failed conservative measures. She did wish to proceed with surgery. I explained the surgery and the risks, which include but are not limited to, bleeding, infection, need for re-operation, paralysis, no relief of symptoms, worsening of symptoms, CSF leak, reflex sympathetic dystrophy, failure of fusion, failure of hardware, DVT, pulmonary embolism, myocardial infarction, , bowel, bladder, sexual dysfunction, saddle anesthesia, need for further fusion in the future, chronic back and hip pain, hip graft site infection and osteomyelitis. She understood all this. All of her questions were answered, and she did wish to proceed. OPERATION PERFORMED The patient was taken to the operating room and placed under general endotracheal anesthesia. Monitoring lines were placed. She was turned on the Tuan table. All pressure points were padded. Her breasts were midline. Her back was prepped and draped in the usual sterile fashion. A linear incision was made with a 10 blade scalpel. Bovie was used to take down the musculature up to the transverse processes bilaterally. Intraoperative x-ray confirmed our positioning. The old hardware was removed. We drilled down the hypertrophied facet joints and redecompressed the nerve roots widely bilaterally, performing completion laminectomy and medial facetectomies at L5-S1. There was minimal bone that we could collect. We replaced the hardware at L5-S1 utilizing 40 and 35 mm screws at L5 and S1 bilaterally. Intraoperative x-ray confirmed our position. Appropriate sized and contoured rods were affixed to the screws utilizing locking nuts. These were tightened into place. Lateral mass transverse processes were decorticated. After irrigated the wound copiously with hydrogen peroxide and antibiotic solution, these areas were then packed with [place] allograft. Two drains were placed. The wound was closed in layers of 0 Vicryl, 2-0 Vicryl, and skin coby. Sterile dressing was placed. The patient was transferred to the transportation table and taken to PACU in stable condition. MARIANA MURILLO MD D 12/07/2019 08:05 [id number] T 12/07/2019 13:38 CLB/MODL documented in this encounter Reason for Visit (unrecogniz ed section and content) Status Reason Specialty Diagnoses / Procedures Referre d By Contact Referred To Contact Closed Radiology Diagnoses Foraminal stenosis of lumbar region History of lumbar fusion Spondylolisthesis, lumbar region Procedures CT Lumbar Spine Without Contrast 3D CT Lumbar Spine Without Contrast Mariana Murillo MD [address] [place] [id number] Reason Comments Pre-operative Medical Risk Stratificatio n Reason Comments Post-op Reason Comments Follow-up Reason Comments Back Pain MRIs downloaded Leg Pain Status Reason Specialty Diagnoses / Procedures Referred By Contact Referred To Contact Pending Review Neurosurgery Diagnoses Foraminal stenosis of lumbar region DDD (degenerative disc disease), lumbosacral Scoliosis of lumbar region due to degenerative disease of spine in adult Spondylolisthesis of multiple sites in spine Nai Alegre MD [facility] [place] [address] Mariana Murillo MD [address] [place], [place] [id number] Status Reason Specialty Diagnoses / Procedures Re ferred By Contact Referred To Contact Diagnoses Spondylolisthesis, lumbar region Spinal stenosis, lumbar region with neurogenic claudication LUMBAR FORAMINAL STENOSIS M48.061 Procedures NJ ARTHRODESIS POSTERIOR/POSTEROLATERAL LUMBAR SINGLE NJ LAMINEC/FACETECT/FORAMIN, LUMBAR 1 SEG NJ POSTERIOR NON-SEGMENTAL INSTRUMENTATION NJ INSJ BIOMCHN DEV INTERVERTEBRAL DSC SPC W/ARTHRD [place] ALLOGRAFT FOR SPINE SURGERY ONLY MORSELIZED [place] AUTOGRAFT SPINE SURGERY LOCAL FROM SAME INCISION LUMBAR 5-SACRAL 1 FACETECTOMY AND FUSION, REPLACE HARDWARE STAXX-THEKEN Reason Comments Follow-up 3 month follow up. P t C/O shortness of breath Reason Onset Date Comments Refill Request 07/23/2022 Reason Onset Date Comments Refill Request 09/09/2022 Reason Comments Establish Care Bronchiectaisis w/o complications Reason Comments Cough Reason Comments Establish Care Bronchiectasis Reason Comments Ear Pain Left-Worse in last w [place] or 2. Sharp nerve pain. Wakes her up from sleep. Reason Comments 6 Month Exam Reason Onset Date Comments Refill Request 03/09/2023 Reason Comments Follow Up Reason Comments Follow-up Reason Comments Cough Pt reported throat p ain, chest congestion, SOB, x3 days. Reason Comments Follow-up Bronchiectasis witho ut complication Reason Onset Date Comments Refill Request 06/06/2023 Reason Comments Infection Redness, swollen lef t arm, infusion done yesterday Reason Comments ER F/U Reason Comments Bronchiectasis Reason Comments Establish Care Bronchiectasis Reason Onset Date Comments Refill Request 07/31/2023 Reason Onset Date Comments Refill Request 08/29/2023 Reason Onset Date Comments Refill Request 09/16/2023 Reason Onset Date Comments 6 Month Exam Immunizations 10/10/2023 Flu vaccination Reason Comments Establish Care ABN EKG/ PT DTR CALL ED TO SCHEDULE AND REQUEST NHK/MED RECS mg Reason Comments Follow Up Reason Comments Lump Left lower abdomen. Noticed it 3 weeks ago. Not painful. Has hx of cancer. 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 Procedures CONSULT TO GENERAL SURGERY OFFICE/OUTPATIENT NEW HIGH MDM 60 MINUTES Maricel Kennedy, ROBOTICS TECHNICIAN.ELECTROMYOGRAPHIC TECHNICIAN [address] [place] [id number] Referral ID Status Reason Start Date Expiration Date V isits Requested Visits Authorized [id number] Closed PCP Requested Referral 04/24/2024 04/24/2025 1 1 Reason Comments Follow Up Ultrasound results Reason Onset Date Comments Refill Request 05/27/2024 Reason Onset Date Comments Refill Request 08/09/2024 Reason Comments Results Reason Comments Cough 4 days Reason Comments Medication Refill Reason Comments 6 Month Exam Reason Onset Date Comments Refill Request 06/19/2025 Reason Onset Date Comments Refill Request 07/15/2025 Care Teams (unrecognized sec tion and content) Commercial Driver'S License Driver Relationship Specialty Start Date End Date Nai Alegre MD [address] [place] [address] PCP - General Internal Medicine 11/24/17 Commercial Driver'S License Driver Relationship Specialty Start Date End Date Herminio Whitman MD [address] [place] [address] PCP - General Family Medicine 01/26/22 Commercial Driver'S License Driver Relationship Specialty Start Date End Date Herminio Whitman MD [address] [facility] [address] PCP - General Family Medicine 01/26/22 Commercial Driver'S License Driver Relationship Specialty Start Date End Date Herminio Whitman MD [address] [facility] [address] PCP - General Family Practice 08/21/21 Commercial Driver'S License Driver Relationship Specialty Start Date End Date Herminio Whitman MD [address] [place] [address], [place] [address] PCP - General Family Medicine 08/21/21 Commercial Driver'S License Driver Relationship Specialty Start Date End Date Herminio Whitman MD [address] [place] [address], [place] [address] PCP - General Family Medicine 01/26/22 Commercial Driver'S License Driver Relationship Specialty Start Date End Date Herminio Whitman MD [facility] [address] PCP - General Family Medicine 08/21/21 Commercial Driver'S License Driver Relationship Specialty Start Date End Date Herminio Whitman MD [address] [place] [address], [place] [address] PCP - General Family Medicine 01/26/22 Commercial Driver'S License Driver Relationship Specialty Start Date End Date Herminio Whitman MD [address] [place] [address], [place] [address] PCP - General Family Medicine 08/21/21 Commercial Driver'S License Driver Relationship Specialty Start Date End Date Herminio Whitman MD [facility] [address] PCP - General Family Medicine 08/21/21 Commercial Driver'S License Driver Relationship Specialty Start Date End Date Herminio Whitman MD [facility] [address] PCP - General Family Medicine 08/21/21 Commercial Driver'S License Driver Relationship Specialty Start Date End Date Herminio Whitman MD [address] [place] [address] PCP - General Family Medicine 08/21/21 Commercial Driver'S License Driver Relationship Specialty Start Date End Date Herminio Whitman MD [address] [place], [place] [address] PCP - General Family Medicine 01/26/22 Commercial Driver'S License Driver Relationship Specialty Start Date End Date Herminio Whitman MD [address] [place] [address] PCP - General Family Medicine 01/26/22 Commercial Driver'S License Driver Relationship Specialty Start Date End Date Herminio Whitman MD [address] [place] [address] PCP - General Family Medicine 08/21/21 Commercial Driver'S License Driver Relationship Specialty Start Date End Date Herminio Whitman MD [address] [place], [place] [address] PCP - General Family Medicine 01/26/22 Commercial Driver'S License Driver Relationship Specialty Start Date End Date Herminio Whitman MD [address] [place], [place] [address] PCP - General Family Medicine 08/21/21 Commercial Driver'S License Driver Relationship Specialty Start Date End Date Herminio Whitman MD [address] [place], [place] [address] PCP - General Family Medicine 08/21/21 Team Status: Active Member Role Status Dates Dr. Nai Alegre MD Family Provider Active Dr. Herminio Whitman MD Primary Care Provider Active Team Status: Inactive Member Role Status Dates Dr. Herminio Whitman MD Primary Care Provider Active Dr. Isaiah Fernandez MD Emergency Provider Active Team Status: Active Member Role Status Dates Dr. Herminio Whitman MD Primary Care Provider Active Dr. Jeimy Quezada MD Attending Provider Active Team Status: Inactive Member Role Status Dates Dr. Herminio Whitman MD Primary Care Provider Active Dr. Isaiah Fernandez MD Attending Provider, Referring Provider Active Team Status: Inactive Member Role Status Dates Dr. Herminio Whitman MD Primary Care Provider Active Dr. Isaiah Fernandez MD Attending Provider, Emergency Provider Active Commercial Driver'S License Driver Relationship Specialty Start Date End Date Herminio Whitman MD [address] [place] [address] PCP - General Family Medicine 08/21/21 Commercial Driver'S License Driver Relationship Specialty Start Date End Date Herminio Whitman MD [address] [place] [address] PCP - General Family Medicine 08/21/21 Commercial Driver'S License Driver Relationship Specialty Start Date End Date Herminio Whitman MD [address] [place] [address] PCP - General Family Medicine 01/26/22 Commercial Driver'S License Driver Relationship Specialty Start Date End Date Herminio Whitman MD [address] [place] [address] PCP - General Family Medicine 08/21/21 Commercial Driver'S License Driver Relationship Specialty Start Date End Date Herminio Whitman MD [address] [place] [address] PCP - General Family Medicine 08/21/21 Commercial Driver'S License Driver Relationship Specialty Start Date End Date Herminio Whitman MD [address] [place] [address] PCP - General Family Medicine 01/26/22 Commercial Driver'S License Driver Relationship Specialty Start Date End Date Herminio Whitman MD [address] [place] [address] PCP - General Family Medicine 01/26/22 Commercial Driver'S License Driver Relationship Specialty Start Date End Date Herminio Whitman MD [address] [place] [address] PCP - General Family Medicine 08/21/21 Commercial Driver'S License Driver Relationship Specialty Start Date End Date Herminio Whitman MD [address] [place] [address] PCP - General Family Medicine 08/21/21 Commercial Driver'S License Driver Relationship Specialty Start Date End Date Herminio Whitman MD [address] [place] [address] PCP - General Family Medicine 08/21/21 Commercial Driver'S License Driver Relationship Specialty [place] [address] [place] [address] PCP - General Family Medicine 08/21/21 Commercial Driver'S License Driver Relationship Specialty Start Date End Date Herminio Whitman MD [address] [place] [address] PCP - General Family Medicine 01/26/22 Commercial Driver'S License Driver Relationship Specialty Start Date End Date Herminio Whitman MD [address] [place] [address] PCP - General Family Medicine 08/21/21 Commercial Driver'S License Driver Relationship Specialty Start Date End Date Herminio Whitman MD [address] [place], [place] [address] PCP - General Family Medicine 08/21/21 Commercial Driver'S License Driver Relationship Specialty Start Date End Date Herminio Whitman MD [address] [facility] [address] PCP - General Family Medicine 08/21/21 Commercial Driver'S License Driver Relationship Specialty Start Date End Date Herminio Whitman MD [address] [facility] [address] PCP - General Family Medicine 08/21/21 Commercial Driver'S License Driver Relationship Specialty Start Date End Date Herminio Whtiman MD [address] [facility] [address] PCP - General Family Medicine 08/21/21 Commercial Driver'S License Driver Relationship Specialty Start Date End Date Herminio Whitman MD [address] [facility] [address] PCP - General Family Medicine 08/21/21 Commercial Driver'S License Driver Relationship Specialty Start Date End Date Herminio Whitman MD [address] [facility] [address] PCP - General Family Medicine 08/21/21 Commercial Driver'S License Driver Relationship Specialty Start Date End Date Herminio Whitman MD [address] [facility] [address] PCP - General Family Medicine 08/21/21 Commercial Driver'S License Driver Relationship Specialty Start Date End Date Herminio Whitman MD [address] [facility] [address] PCP - General Family Medicine 08/21/21 Commercial Driver'S License Driver Relationship Specialty Start Date End Date Herminio Whitman MD [address] [place] [address] PCP - General Family Medicine 01/26/22 Maricel Kennedy [address] [place] [id number] 05/22/24 Karen Goncalves MD [address] [place] [address] Consulting Physician Pulmonary Disease 10/30/24 Commercial Driver'S License Driver Relationship Specialty Start Date End Date Herminio Whitman MD [address] [place] [address] PCP - General Family Medicine 08/21/21 Edith Alexis APRN.DATA ANALYSIS INTERN [address] [place] [address] Hand Polisher Family Medicine 11/05/24 Maricel Kennedy APRN.DATA ANALYSIS INTERN [address] [place] [address] Hand Polisher Family Medicine 11/05/24 Commercial Driver'S License Driver Relationship Specialty Start Date End Date Herminio Whitman MD [address] [place] [address] PCP - General Family Medicine 08/21/21 Edith Alexis APRN.DATA ANALYSIS INTERN [address] [place] [address] Hand Polisher Family Medicine 11/05/24 Maricel Kennedy APRN.DATA ANALYSIS INTERN [address] [place] [address] Hand Polisher Family Medicine 11/05/24 Commercial Driver'S License Driver Relationship Specialty Start Date End Date Herminio Whitman MD [address] [place] [address] PCP - General Family Medicine 01/26/22 Maricel Kennedy [address] [place] [address] 05/22/24 Karen Goncalves MD [address] [place] [address] Dr [address] [place] [phone] Consulting Physician Pulmonary Disease 10/30/24 Commercial Driver'S License Driver Relationship Specialty Start Date End Date Herminio Whitman MD [address] [place] [address] PCP - General Family Medicine 01/26/22 Maricel Kennedy [address] [place] [phone] 05/22/24 Karen Goncalves MD [address] [place] [address] Dr Ross [address] [place] [address] [id number] Consulting Physician Pulmonary Disease 10/30/24 Commercial Driver'S License Driver Relationship Specialty Start Date End Date Herminio Whitman MD [address] [place], [place] [address] PCP - General Family Medicine 08/21/21 Edith Alexis APRN.DATA ANALYSIS INTERN [address] [place] [address] Hand Polisher Family Medicine 11/05/24 Maricel Kennedy APRN.DATA ANALYSIS INTERN [address] [place], [place] [address] Hand Polisher Family Medicine 11/05/24 Commercial Driver'S License Driver Relationship Specialty Start Date End Date Herminio Whitman MD [address] [place], [place] [address] PCP - General Family Medicine 08/21/21 Edith Alexis APRN.DATA ANALYSIS INTERN [address] [place], [place] [address] Hand Polisher Family Medicine 11/05/24 Maricel Kennedy APRN.DATA ANALYSIS INTERN [address] [place], [place] [address] Hand Polisher Family Medicine 11/05/24 Commercial Driver'S License Driver Relationship Specialty Start Date End Date Herminio Whitman MD [address] [place], [place] [address] PCP - General Family Medicine 01/26/22 Maricel Kennedy [address] [place] [address] 05/22/24 Karen Goncalves MD [address] [facility] [place] [address] Consulting Physician Pulmonary Disease 10/30/24 Commercial Driver'S License Driver Relationship Specialty Start Date End Date Herminio Whitman MD [address] [place], [place] [address] PCP - General Family Medicine 08/21/21 Edith Alexis APRN.DATA ANALYSIS INTERN [address] [place] [address] Hand Polisher Family Medicine 11/05/24 Maricel Kennedy APRN.DATA ANALYSIS INTERN [address] [place] [address] Hand Polisher Family Medicine 11/05/24 Commercial Driver'S License Driver Relationship Specialty Start Date End Date Herminio Whitman MD [address] [place] [address] PCP - General Family Medicine 08/21/21 Edith Alexis, ROBOTICS TECHNICIAN.DATA ANALYSIS INTERN [address] [place] [address] Hand Polisher Family Medicine 11/05/24 Maricel Kennedy, ROBOTICS TECHNICIAN.DATA ANALYSIS INTERN [address] [place] [address] Hand Polisher Family Medicine 11/05/24 Commercial Driver'S License Driver Relationship Specialty Start Date End Date Herminio Whitman MD [address] [place] [address] PCP - General Family Medicine 08/21/21 Edith Alexis, ROBOTICS TECHNICIAN.DATA ANALYSIS INTERN [address] [place] [address] Hand Polisher Family Medicine 11/05/24 Maricel Kennedy, ROBOTICS TECHNICIAN.DATA ANALYSIS INTERN [address] [place] [address] Hand Polisher Family Medicine 11/05/24 Commercial Driver'S License Driver Relationship Specialty Start Date End Date Herminio Whitman MD [address] [place] [address] PCP - General Family Medicine 01/26/22 Maricel Kennedy [address] [place] [phone] 05/22/24 Karen Goncalves MD [address] [facility] [place] [address] Consulting Physician Pulmonary Disease 10/30/24 INFORMATION SOURCE (unrecogn ized section and content) DATE CREATED AUTHOR 02/12/2022 [facility] DATE CREATED AUTHOR AUTHOR'S ORGANIZ ATION 11/04/2023 [facility] DATE CREATED AUTHOR AUTHOR'S ORGANIZ ATION 11/13/2023 [facility] DATE CREATED AUTHOR AUTHOR'S ORGANIZ ATION 04/25/2024 [facility] DATE CREATED AUTHOR AUTHOR'S ORGANIZ ATION 02/19/[address] [facility] DATE CREATED AUTHOR AUTHOR'S ORGANIZ ATION 09/05/2025 [facility] DATE CREATED AUTHOR AUTHOR'S ORGANIZ ATION 10/05/2025 [facility] Source Comments (unrecognize d section and content) In the event this informatio n is protected by the Federal Confidentiality of Alcohol and Drug Abuse Patient Records regulations: The Federal rules restrict any use of the information to criminally investigate or prosecute any alcohol or drug abuse patient.[facility] Hospital[facility] the event this information is protected by the Federal Confidentiality of Alcohol and Drug Abuse Patient Records regulations: The Federal rules restrict any use of the information to criminally investigate or prosecute any alcohol or drug abuse patient.[facility] HospitalIn the event this information is protected by the Federal Confidentiality of Alcohol and Drug Abuse Patient Records regulations: The Federal rules restrict any use of the information to criminally investigate or prosecute any alcohol or drug abuse patient.[facility] HospitalIn the event this information is protected by the Federal Confidentiality of Alcohol and Drug Abuse Patient Records regulations: The Federal rules restrict any use of the information to criminally investigate or prosecute any alcohol or drug abuse patient.[facility] HospitalIn the event this information is protected by the Federal Confidentiality of Alcohol and Drug Abuse Patient Records regulations: The Federal rules restrict any use of the information to criminally investigate or prosecute any alcohol or drug abuse patient.[facility] HospitalIn the event this information is protected by the Federal Confidentiality of Alcohol and Drug Abuse Patient Records regulations: The Federal rules restrict any use of the information to criminally investigate or prosecute any alcohol or drug abuse patient.[facility] HospitalIn the event this information is protected by the Federal Confidentiality of Alcohol and Drug Abuse Patient Records regulations: The Federal rules restrict any use of the information to criminally investigate or prosecute any alcohol or drug abuse patient.[facility] HospitalIn the event this information is protected by the Federal Confidentiality of Alcohol and Drug Abuse Patient Records regulations: The Federal rules restrict any use of the information to criminally investigate or prosecute any alcohol or drug abuse patient.[facility] HospitalIn the event this information is protected by the Federal Confidentiality of Alcohol and Drug Abuse Patient Records regulations: The Federal rules restrict any use of the information to criminally investigate or prosecute any alcohol or drug abuse patient.[facility] HospitalIn the event this information is protected by the Federal Confidentiality of Alcohol and Drug Abuse Patient Records regulations: The Federal rules restrict any use of the information to criminally investigate or prosecute any alcohol or drug abuse patient.[facility] HospitalIn the event this information is protected by the Federal Confidentiality of Alcohol and Drug Abuse Patient Records regulations: The Federal rules restrict any use of the information to criminally investigate or prosecute any alcohol or drug abuse patient.[facility] HospitalIn the event this information is protected by the Federal Confidentiality of Alcohol and Drug Abuse Patient Records regulations: The Federal rules restrict any use of the information to criminally investigate or prosecute any alcohol or drug abuse patient.[facility] HospitalIn the event this information is protected by the Federal Confidentiality of Alcohol and Drug Abuse Patient Records regulations: The Federal rules restrict any use of the information to criminally investigate or prosecute any alcohol or drug abuse patient.[facility] HospitalIn the event this information is protected by the Federal Confidentiality of Alcohol and Drug Abuse Patient Records regulations: The Federal rules restrict any use of the information to criminally investigate or prosecute any alcohol or drug abuse patient.[facility] HospitalIn the event this information is protected by the Federal Confidentiality of Alcohol and Drug Abuse Patient Records regulations: The Federal rules restrict any use of the information to criminally investigate or prosecute any alcohol or drug abuse patient.[facility] HospitalIn the event this information is protected by the Federal Confidentiality of Alcohol and Drug Abuse Patient Records regulations: The Federal rules restrict any use of the information to criminally investigate or prosecute any alcohol or drug abuse patient.[facility] HospitalIn the event this information is protected by the Federal Confidentiality of Alcohol and Drug Abuse Patient Records regulations: The Federal rules restrict any use of the information to criminally investigate or prosecute any alcohol or drug abuse patient.[facility] HospitalIn the event this information is protected by the Federal Confidentiality of Alcohol and Drug Abuse Patient Records regulations: The Federal rules restrict any use of the information to criminally investigate or prosecute any alcohol or drug abuse patient.[facility] HospitalIn the event this information is protected by the Federal Confidentiality of Alcohol and Drug Abuse Patient Records regulations: The Federal rules restrict any use of the information to criminally investigate or prosecute any alcohol or drug abuse patient.[facility] HospitalIn the event this information is protected by the Federal Confidentiality of Alcohol and Drug Abuse Patient Records regulations: The Federal rules restrict any use of the information to criminally investigate or prosecute any alcohol or drug abuse patient.[facility] HospitalIn the event this information is protected by the Federal Confidentiality of Alcohol and Drug Abuse Patient Records regulations: The Federal rules restrict any use of the information to criminally investigate or prosecute any alcohol or drug abuse patient.[facility] HospitalIn the event this information is protected by the Federal Confidentiality of Alcohol and Drug Abuse Patient Records regulations: The Federal rules restrict any use of the information to criminally investigate or prosecute any alcohol or drug abuse patient.[facility] HospitalIn the event this information is protected by the Federal Confidentiality of Alcohol and Drug Abuse Patient Records regulations: The Federal rules restrict any use of the information to criminally investigate or prosecute any alcohol or drug abuse patient.[facility] HospitalIn the event this information is protected by the Federal Confidentiality of Alcohol and Drug Abuse Patient Records regulations: The Federal rules restrict any use of the information to criminally investigate or prosecute any alcohol or drug abuse patient.[facility] HospitalIn the event this information is protected by the Federal Confidentiality of Alcohol and Drug Abuse Patient Records regulations: The Federal rules restrict any use of the information to criminally investigate or prosecute any alcohol or drug abuse patient.[facility] HospitalIn the event this information is protected by the Federal Confidentiality of Alcohol and Drug Abuse Patient Records regulations: The Federal rules restrict any use of the information to criminally investigate or prosecute any alcohol or drug abuse patient.[facility] HospitalIn the event this information is protected by the Federal Confidentiality of Alcohol and Drug Abuse Patient Records regulations: The Federal rules restrict any use of the information to criminally investigate or prosecute any alcohol or drug abuse patient.[facility] HospitalIn the event this information is protected by the Federal Confidentiality of Alcohol and Drug Abuse Patient Records regulations: The Federal rules restrict any use of the information to criminally investigate or prosecute any alcohol or drug abuse patient.[facility] HospitalIn the event this information is protected by the Federal Confidentiality of Alcohol and Drug Abuse Patient Records regulations: The Federal rules restrict any use of the information to criminally investigate or prosecute any alcohol or drug abuse patient.[facility] HospitalIn the event this information is protected by the Federal Confidentiality of Alcohol and Drug Abuse Patient Records regulations: The Federal rules restrict any use of the information to criminally investigate or prosecute any alcohol or drug abuse patient.[facility] HospitalIn the event this information is protected by the Federal Confidentiality of Alcohol and Drug Abuse Patient Records regulations: The Federal rules restrict any use of the information to criminally investigate or prosecute any alcohol or drug abuse patient.[facility] HospitalIn the event this information is protected by the Federal Confidentiality of Alcohol and Drug Abuse Patient Records regulations: The Federal rules restrict any use of the information to criminally investigate or prosecute any alcohol or drug abuse patient.[facility] HospitalIn the event this information is protected by the Federal Confidentiality of Alcohol and Drug Abuse Patient Records regulations: The Federal rules restrict any use of the information to criminally investigate or prosecute any alcohol or drug abuse patient.[facility] HospitalIn the event this information is protected by the Federal Confidentiality of Alcohol and Drug Abuse Patient Records regulations: The Federal rules restrict any use of the information to criminally investigate or prosecute any alcohol or drug abuse patient.[facility] HospitalIn the event this information is protected by the Federal Confidentiality of Alcohol and Drug Abuse Patient Records regulations: The Federal rules restrict any use of the information to criminally investigate or prosecute any alcohol or drug abuse patient.[facility] HospitalIn the event this information is protected by the Federal Confidentiality of Alcohol and Drug Abuse Patient Records regulations: The Federal rules restrict any use of the information to criminally investigate or prosecute any alcohol or drug abuse patient.[facility] HospitalIn the event this information is protected by the Federal Confidentiality of Alcohol and Drug Abuse Patient Records regulations: The Federal rules restrict any use of the information to criminally investigate or prosecute any alcohol or drug abuse patient.[facility] HospitalIn the event this information is protected by the Federal Confidentiality of Alcohol and Drug Abuse Patient Records regulations: The Federal rules restrict any use of the information to criminally investigate or prosecute any alcohol or drug abuse patient.[facility] HospitalIn the event this information is protected by the Federal Confidentiality of Alcohol and Drug Abuse Patient Records regulations: The Federal rules restrict any use of the information to criminally investigate or prosecute any alcohol or drug abuse patient.[facility] HospitalIn the event this information is protected by the Federal Confidentiality of Alcohol and Drug Abuse Patient Records regulations: The Federal rules restrict any use of the information to criminally investigate or prosecute any alcohol or drug abuse patient.[facility] Goals (unrecognized section and content) Goals may be documented in a n alternate sectionGoals may be documented in an alternate section FOR RECORDS PERTAINING TO PATIENTS WHO ARE OR HAVE BEEN ENROLLED IN A CHEMICAL DEPENDENCY/SUBSTANCEABUSE PROGRAM, SOME INFORMATION MAY BE OMITTED. This clinical summary was aggregated from multiple sources. Caution should be exercised in using it in the provision of clinical care. This summary normalizes information from multiple sources, and as a consequence, information in this document may materially change the coding, format and clinical context of patient data. In addition, data may be omitted in some cases. CLINICAL DECISIONS SHOULD BE BASED ON THE PRIMARY CLINICAL RECORDS. [facility] [employer] [facility] provides no warranty or guarantee of the accuracy or completeness of information in this document.
[2025-11-12 20:59] VITALS: BP 160/73; PULSE 69; RESP 17; TEMP 36.6; O2SAT 93
== END 2025-11-12 21:01 | disposition home or self-care (01) ==
PROVIDERS: Emergency Provider Emergency Medicine; PCP Family Medicine; Visit Provider Emergency Medicine
DX: R79.89 Other specified abnormal findings of blood chemistry (principal); R06.00 Dyspnea, unspecified; M79.661 Pain in right lower leg; Z79.51 Long term (current) use of inhaled steroids; Z79.899 Other long term (current) drug therapy; Z87.891 Personal history of nicotine dependence
CPT/HCPCS: 71275; 80048; 84484; 85025; 93005; 93971; 96374; 96375; 96376; 99284; Q9967; A4216